=== PATIENT | male | born 1950 | race African-American/Black ===

== ENCOUNTER → 2016-06-23 | Outpatient (CLI) | payer MEDICARE, MEDICAID ==
[~2016-06-23] MED LIST: AMLODIPINE BESY10 MG ORAL; COGENTIN1 MG/ML PO; DONEPEZIL HCL5 M2 ORAL; KEPPRA100 MG/1 M PO; SEROQUEL100 MG ORAL
--- NOTE | 2016-06-23 16:03 | Diagnostic Imaging Report ---
Indications: Lung mass Technique: Continuous helical CT imaging of the thorax and upper abdomen was performed with automatic exposure control following intravenous administration of nonionic iodine contrast, on a Siemens sensation [address] scanner. Axial, coronal, and sagittal images were reconstructed at 5 mm slice thickness. CTDI volume(s): 8, 105, 16 mGy Total DLP: 700 mGy-cm Findings: Comparison: 01/06/2016 2 cm pleural-based masslike opacity containing multiple nodular calcifications and adjacent parenchymal linear density persists in the anterolateral periphery of the lateral segment right middle lobe, unchanged. Adjacent small nodular parenchymal densities persist, unchanged. Small irregular pleural-based linear densities persist in the dependent portions of both lung bases, unchanged. No new pulmonary parenchymal abnormality demonstrated. No pleural disease is evident. Nodular calcification in right hilum unchanged. Clustered calcified nodules in the subcarinal region of mediastinum unchanged. No new mediastinal or hilar enlarged lymph nodes. Heart remains normal in size. No pericardial abnormality. Central mediastinal vasculature remains unremarkable in appearance. Chest wall soft tissues remain nonfocal. Subcentimeter circumscribed low-attenuation focus upper pole cortex left kidney unchanged. Gallbladder contracted, limiting evaluation. 2 cm left adrenal mass unchanged. Bridging osteophytes again noted in the thoracic spine. Impression: Focal right lung, hilar, mediastinal findings are compatible with chronic granulomatous disease, stable Stable tiny low-attenuation focus in left renal cortex-cyst versus angiomyolipoma Stable 2 cm left adrenal mass probably but not definitely adenoma. MRI correlation suggested. Degenerative spondylosis Limited evaluation of gallbladder due to contraction
== END | disposition home or self-care (01) ==
LOC: CAT 13:03
DX: R91.8 Other nonspecific abnormal finding of lung field (principal); M47.9 Spondylosis, unspecified
CPT/HCPCS: 71260; Q9967

== ENCOUNTER 2018-10-07 02:22 | Inpatient (IN) | payer MEDICAID, MEDICARE ==
[~2018-10-07] VITALS: Ht 170.2 cm; Wt 77.1 kg
--- NOTE | 2018-10-07 02:22 | NUR ---
ED Nurse Note: Patient andrade JONES from [facility] c/o unwitnessed fall, EMS states that the patient was found on the floor. ABRASION ABOVE LEFT EYEBROW NOTED. NAD. VSS.
--- NOTE | 2018-10-07 02:30 | NUR ---
ED Nurse Note: IV ACCESS ESTABLISHED. BLOOD AND URINE COLLECTED; SENT DOWN TO LAB.
--- NOTE | 2018-10-07 02:45 | NUR ---
ED Nurse Note: SKIN ASSESSED. PT PRESENTS WITH ABRASION ABOVE LEFT EYEBROW; OTHERWISE SKIN INTACT.
--- NOTE | 2018-10-07 02:50 | NUR ---
ED Nurse Note: MRSA VRE CRE SWABS COLLECTED; SENT DOWN TO LAB.
--- NOTE | 2018-10-07 03:00 | NUR ---
ED Nurse Note: PT DOWN TO IMAGING.
[2018-10-07 03:03] VITALS: BP 112/70
[2018-10-07 03:05] LABS: APPEARANCE,URINE CLEAR; BILIRUBIN, URINE NEGATIVE (NEGATIVE); GLUCOSE, URINE (UA) NEGATIVE (NEGATIVE); KETONES,URINE NEGATIVE (NEGATIVE); LEUKOCYTE ESTERASE ,URINE NEGATIVE (NEGATIVE); NITRITE,URINE NEGATIVE (NEGATIVE); PH,URINE 6.5 (4.5-8.0); PROTEIN,URINE NEGATIVE (NEGATIVE); UROBILINOGEN,URINE NORMAL MG/DL (0.0-1.0)
[2018-10-07 03:06] LABS: COLOR,URINE YELLOW
[2018-10-07 03:07] LABS: BASOPHILS % (AUTO) 1.7 % (0.0-2.0); EOSINOPHILS % (AUTO) 2.8 % (0.0-3.0); HEMATOCRIT 47.9 % (42.0-52.0); HEMOGLOBIN 15.8 G/DL (14.2-18.0); MEAN CORPUSCULAR VOLUME 97 FL (80-99); MONOCYTES % (AUTO) 8.9 % (1.0-10.0); NEUTROPHILS % (AUTO) 58.6 % (45.0-75.0); PLATELET COUNT 269 K/UL (150-450); RED BLOOD COUNT 4.95 M/UL (4.70-6.10); RED CELL DISTRIBUTION WIDTH 13.4 % (11.6-14.8); WHITE BLOOD COUNT 9.4 K/UL (4.8-10.8)
[2018-10-07 03:15] LABS: ANION GAP 6 mmol/L (5-15); BLOOD UREA NITROGEN 15 mg/dL (7-18); CALCIUM 10.2 MG/DL (8.5-10.1); CARBON DIOXIDE 32 MMOL/L (21-32); CHLORIDE 106 MMOL/L (98-107); POTASSIUM 4.2 MMOL/L (3.5-5.1); SODIUM 144 MMOL/L (136-145)
--- NOTE | 2018-10-07 03:16 | NUR ---
ED Nurse Note: CALLED TO GIVE REPORT. RECEIVING RN UNABLE TO RECEIVE REPORT. WILL TRY AT A LATER TIME.
--- NOTE | 2018-10-07 03:17 | NUR ---
ED Nurse Note: PATIENT BACK FROM CT.
--- NOTE | 2018-10-07 03:45 | NUR ---
NURSE NOTES: Received report from KEELEY Caldwell via phone. Called and left a message with Dr. Soares regarding admission orders. Awaiting call back. Also awaiting pt.
--- NOTE | 2018-10-07 03:45 | NUR ---
TRANSFER TO FLOOR: Patient transferred to MED SURG 301-2 as ordered, per MD LOUIS. Report given to KEELEY GOULD. PATIENT IN STABLE CONDITION. ENDORSED SKIN ABRASION ON LEFT FOREHEAD. BELONGIGNS LIST COMPLETED WITH RECEIVING RN.
--- NOTE | 2018-10-07 03:46 | Emergency Room Report ---
History of Present Illness General Chief Complaint: Multiple Trauma/Fall Source: Patient, Medical Record, EMS Present Illness HPI This is a 68-year-old male with multiple medical problem including seizure and mentioned. He presents with fall with head injury. Onset tonight. No other injury. Complaining of pain to the head. History is limited because of his condition. No nausea no vomiting no fever or chills. Denies any other complaint. Unwitnessed fall. Allergies: Coded Allergies: PNEUMOCOCCAL VACCINE (Unverified Allergy, Unknown, 10/07/18) Patient History Past Medical History: see triage record, old chart reviewed, HTN, dementia Past Surgical History: other Pertinent Family History: none Social History: Denies: smoking Immunizations: other Reviewed Nursing Documentation: PMH: Agreed; PSxH: Agreed Nursing Documentation-PMH Past Medical History: No History, Except For Hx Hypertension: Yes - Essential Hypertension Hx Gastrointestinal Problems: Yes - Diverticulosis Hx Neurological Problems: Yes - Altered Mental Status. Hx Dementia: Yes - Unspecified, without behavioral disturbance Hx Seizures: Yes Hx Epilepsy: Yes - Unspecified, not intractable, without status epilepticus Hx Syncope: Yes Review of Systems Eye: Denies: eye pain, blurred vision ENT: Denies: ear pain, nose congestion, throat swelling Respiratory: Denies: cough, shortness of breath Cardiovascular: Denies: chest pain, palpitations Gastrointestinal: Denies: abdominal pain, diarrhea, nausea, vomiting Musculoskeletal: Denies: back pain, joint pain Skin: Denies: rash Neurological: Denies: headache, numbness Endocrine: Denies: increased thirst, increased urine Hematologic/Lymphatic: Denies: easy bruising All Other Systems: negative except mentioned in HPI Physical Exam Vital Signs Date Time Temp Pulse Resp B/P (MAP) Pulse Ox O2 Delivery O2 Flow Rate FiO2 10/07/18 02:17 98.4 70 16 93 Room Air 10/07/18 03:03 112/70 vitals [place] Sp02 EP Interpretation: reviewed, normal General Appearance: well appearing, no apparent distress, alert Head: normocephalic, other - Abrasion forehead Eyes: bilateral eye PERRL, bilateral eye EOMI ENT: hearing grossly normal, normal pharynx Neck: full range of motion, supple, no meningismus Respiratory: chest non-tender, lungs clear, normal breath sounds Cardiovascular #1: regular rate, rhythm, no murmur Gastrointestinal: normal bowel sounds, non tender, no mass, no organomegaly, no bruit, non-distended Musculoskeletal: back normal, gait/station normal, normal range of motion Psychiatric: mood/affect normal Skin: warm/dry Medical Decision Making Diagnostic Impression: Primary Impression: Head injury, acute Qualified Codes: S09.90XA - Unspecified injury of head, initial encounter Additional Impression: Altered mental status Qualified Codes: R41.82 - Altered mental status, unspecified ER Course Patient with a fall and head injury. No evidence of any bleed. Unknown confusion state. Will place in observation. I discussed case with Dr. Soares who will place pt in observation. CT/MRI/US Diagnostic Results CT/MRI/US Diagnostic Results : Imaging Test Ordered: CT head Impression negative per radiologist Last Vital Signs Date Time Temp Pulse Resp B/P (MAP) Pulse Ox O2 Delivery O2 Flow Rate FiO2 10/07/18 03:03 70 16 Room Air 10/07/18 03:03 98.4 112/70 93 Status: improved Disposition: PLACE IN OBSERVATION Condition: Serious Referrals: Konrad Soares MD (PCP) Devonte Sinha MD October 07, 2018 03:46
[2018-10-07 03:56] VITALS: BP 116/81
--- NOTE | 2018-10-07 04:34 | NUR ---
NURSE NOTES: Received the followinf orders from Dr. Soares: - resume snf meds and same diet - same code as snf - dvt: SCD - no labs Will input orders and will continue to monitor.
[2018-10-07] MEDS ORDERED: MOM30 ML ORAL (05:42)
[2018-10-07] MEDS ORDERED: REMERON15 M1 ORAL (05:43)
--- NOTE | 2018-10-07 07:29 | NUR ---
NURSE NOTES: Received report from KEELEY Stoddard. Rounding done with outgoing nurse. Patient a/o x1 lying on the bed. No respiratory discomfort noted. Bed in lowest position, call light within reach. Will continue to monitor.
[2018-10-07 08:00] VITALS: BP 123/71
[2018-10-07] MEDS: Benztropine 1mg tab ORAL SCH ×2 (08:41→17:56)
[2018-10-07] MEDS: Milk of Magnesia 30ml Ud ORAL SCH (08:41)
[2018-10-07] MEDS ORDERED: levETIRAcetam 500mg vial IV SCH (09:00)
--- NOTE | 2018-10-07 10:49 | Diagnostic Imaging Report ---
Indication: Head trauma and headache Technique: Contiguous 5 mm thick transaxial imaging of the head obtained in a Siemens Sensation [address] scanner. Soft tissue and bone windows generated. Automatic Exposure Control was utilized. Total Dose length Product (DLP): 1351.[address] Dose Index Volume (CTDIvol): 70.38 mGy Comparison: none Findings: There is moderate prominence of the ventricles, basal cisterns, and cerebral sulci consistent with atrophy. Moderate, nonspecific, white matter hypoattenuation is noted throughout the brain consistent with chronic small vessel disease. There is no midline shift, edema, acute hemorrhage, mass effect, or abnormal extra-axial fluid collections. Bones and extra osseous soft tissues are unremarkable. There is a scalp hematoma over the frontal region. Impression: No acute intracranial bleed, mass effect or edema. Moderate atrophy of the brain. Evidence of chronic small vessel disease involving white matter tracts. [facility] has communicated the preliminary results to the Emergency Department. Their findings are largely concordant with this report. The CT scanner at [facility] is accredited by the [employer] and the scans are performed using dose optimization techniques as appropriate to a performed exam including Automatic Exposure control.
[2018-10-07 12:00] VITALS: BP 114/71
--- NOTE | 2018-10-07 14:38 | NUR ---
CASE MANAGEMENT:REVIEW 68 YR OLD MALE SANDY FROM [facility] CC: FALL SI: HEAD INJURY 98.5 70 16 112/70 93% ON RA CA-10.2 IS: CT HEAD : TO MED/SURG 3 [facility] IS: ARICEPT PO QHS REMERON PO QHS NORVASC PO QD SEROQUEL PO BID COGENTIN PO BID KEPPRA PO BID PLAN: NEURO CHECKS Q4HRS INTERQUAL CRITERIA MET
[2018-10-07 16:00] VITALS: BP 119/72
--- NOTE | 2018-10-07 19:30 | NUR ---
NURSE NOTES: Pt lying in bed w/bed in lowest position and call light within reach. Pt confused, does not answer questions, VSS, and in no apparent distress at this time. IV site intact/asymptomatic & H/L'd; condom cath intact; and skin abrasion noted above left eyebrow. Will continue to monitor.
--- NOTE | 2018-10-07 19:40 | NUR ---
HAND-OFF: Report given to KEELEY Hernandez. Patient is stable.
[2018-10-07 20:00] VITALS: BP 124/71
[2018-10-07] MEDS: Donepezil 5mg Tab ORAL SCH (20:20)
--- NOTE | 2018-10-07 21:46 | Consultation ---
History of Present Illness General Date patient seen: October 07, 2018 Chief Complaint: AMS Present Illness HPI Pritesh Noguera is a 68-year-old male with a history of CVA and seizure disorder presenting with head injury secondary to unwitnessed ground level fall this evening. He is currently non verbal and unable to provide any history of any kind. He has no other apparent deficits as he is withdrawing / localizing to stimuli in all four extremities without apparent weakness at this time. Allergies: Coded Allergies: PNEUMOCOCCAL VACCINE (Unverified Allergy, Unknown, 10/07/18) Medication History Scheduled Amlodipine Besylate* (Amlodipine Besylate*), 10 MG ORAL DAILY, (Reported) Benztropine Mesylate (Cogentin), 0.5 MG PO BID, (Reported) Donepezil Hcl* (Donepezil Hcl*), 5 MG ORAL HS, (Reported) Levetiracetam (Keppra), 1,500 MG PO BID, (Reported) Magnesium Hydroxide (Milk of Magnesia), 30 ML ORAL DAILY, (Reported) Mirtazapine (Remeron), 7.5 MG ORAL BEDTIME, (Reported) Quetiapine Fumarate* (Seroquel*), 100 MG ORAL TWICE A DAY, (Reported) Patient History Limited by: medical condition History Provided By: Medical Record Healthcare decision maker Resuscitation status Full Code Advanced Directive on File Review of Systems ENT: Reports: other All Other Systems: negative except mentioned in HPI ROS Narrative Unable to report Physical Exam General Appearance: WD/WN, lethargic Lines, tubes and drains: peripheral HEENT: normocephalic, atraumatic, anicteric, mucous membranes moist, PERRL, EOMI, pharynx normal, no JVD Neck: non-tender, normal alignment, supple, normal inspection Respiratory/Chest: normal breath sounds Cardiovascular/Chest: normal peripheral pulses, no JVD Abdomen: non tender, soft Extremities: normal inspection, no calf tenderness, normal capillary refill, non-pitting, no edema, no cyanosis Skin Exam: normal pigmentation, warm/dry Neurologic: abnormal CN, unresponsiveness, aphasia, other - Moving all extremities spontaneously without apparent weakness but non to command W/D from noxious stim. Last 24 Hour Vital Signs Date Time Temp Pulse Resp B/P (MAP) Pulse Ox O2 Delivery O2 Flow Rate FiO2 10/07/18 21:00 Room Air 10/07/18 20:00 97.7 98 17 124/71 (88) 97 10/07/18 16:00 97.7 62 17 119/72 (88) 97 10/07/18 12:00 98.2 69 20 114/71 (85) 99 10/07/18 09:00 Room Air 10/07/18 08:41 68 123/71 10/07/18 08:00 98.0 68 19 123/71 (88) 97 10/07/18 05:07 Room Air 10/07/18 03:56 98.1 75 116/81 (93) 97 10/07/18 03:45 98.4 70 16 112/70 93 Room Air 10/07/18 03:03 70 16 Room Air 10/07/18 03:03 98.4 70 16 112/70 93 Room Air 10/07/18 02:17 98.4 70 16 93 Room Air Intake and Output 10/06/18 10/07/18 19:00 07:00 # Voids 2 # Bowel Movements 1 Laboratory Tests Test 10/07/18 02:30 White Blood Count 9.4 K/UL (4.8-10.8) Red Blood Count 4.95 M/UL (4.70-6.10) Hemoglobin 15.8 G/DL (14.2-18.0) Hematocrit 47.9 % (42.0-52.0) Mean Corpuscular Volume 97 FL (80-99) Mean Corpuscular Hemoglobin 31.8 PG (27.0-31.0) H Mean Corpuscular Hemoglobin Concent 32.9 G/DL (32.0-36.0) Red Cell Distribution Width 13.4 % (11.6-14.8) Platelet Count 269 K/UL (150-450) Mean Platelet Volume 6.3 FL (6.5-10.1) L Neutrophils (%) (Auto) 58.6 % (45.0-75.0) Lymphocytes (%) (Auto) 28.0 % (20.0-45.0) Monocytes (%) (Auto) 8.9 % (1.0-10.0) Eosinophils (%) (Auto) 2.8 % (0.0-3.0) Basophils (%) (Auto) 1.7 % (0.0-2.0) Urine Color Yellow Urine Appearance Clear Urine pH 6.5 (4.5-8.0) Urine Specific [place] 1.015 (1.005-1.035) Urine Protein Negative (NEGATIVE) Urine Glucose (UA) Negative (NEGATIVE) Urine Ketones Negative (NEGATIVE) Urine Blood Negative (NEGATIVE) Urine Nitrite Negative (NEGATIVE) Urine Bilirubin Negative (NEGATIVE) Urine Urobilinogen Normal MG/DL (0.0-1.0) Urine Leukocyte Esterase Negative (NEGATIVE) Urine RBC 0-2 /HPF (0 - 0) H Urine WBC 0-2 /HPF (0 - 0) Urine Squamous Epithelial Cells Occasional /LPF Urine Bacteria Occasional /HPF (NONE) Sodium Level 144 MMOL/L (136-145) Potassium Level 4.2 MMOL/L (3.5-5.1) Chloride Level 106 MMOL/L (98-107) Carbon Dioxide Level 32 MMOL/L (21-32) Anion Gap 6 mmol/L (5-15) Blood Urea Nitrogen 15 mg/dL (7-18) Creatinine 1.0 MG/DL (0.55-1.30) Estimat Glomerular Filtration Rate > 60 mL/min (>60) Glucose Level 103 MG/DL (74-106) Calcium Level 10.2 MG/DL (8.5-10.1) H Height (Feet): 5 Height (Inches): 7.00 Weight (Pounds): 170 Medications Current Medications Medications (Trade) Dose Ordered Sig/Nidhi Route PRN Reason Start Time Stop Time Status Last Admin Dose Admin Amlodipine Besylate (Norvasc) 10 mg DAILY ORAL 10/07/18 09:00 11/06/18 08:59 10/07/18 08:41 Benztropine Mesylate (Cogentin) 0.5 mg BID ORAL 10/07/18 09:00 11/06/18 08:59 10/07/18 17:56 Donepezil HCl (Aricept) 5 mg BEDTIME ORAL 10/07/18 21:00 11/06/18 20:59 10/07/18 20:20 Levetiracetam (Keppra) 1,500 mg BID ORAL 10/07/18 09:00 11/06/18 08:59 10/07/18 17:56 Magnesium Hydroxide (Mom) 30 ml DAILY ORAL 10/07/18 09:00 11/06/18 08:59 10/07/18 08:41 Mirtazapine (Remeron) 7.5 mg BEDTIME ORAL 10/07/18 21:00 11/06/18 20:59 10/07/18 20:20 Quetiapine Fumarate (SEROquel) 100 mg TWICE A DAY ORAL 10/07/18 09:00 11/06/18 08:59 10/07/18 17:56 Assessment/Plan Problem List: (1) Head injury, acute ICD Codes: S09.90XA - Unspecified injury of head, initial encounter SNOMED: 97316989, [id number] Qualifiers: Qualified Codes: S09.90XA - Unspecified injury of head, initial encounter (2) Altered mental status ICD Codes: R41.82 - Altered mental status, unspecified SNOMED: 135860422, 7112714 Qualifiers: Qualified Codes: R41.82 - Altered mental status, unspecified (3) Schizophrenia ICD Codes: F20.9 - Schizophrenia, unspecified SNOMED: 63394548 (4) Syncope ICD Codes: R55 - Syncope and collapse SNOMED: 134093195 Assessment/Plan: Q4 Neuro Obs Na 135-145 MRI Brain w/o contrast EEG after MRI Maintain Normoglycemia/ Normothermia Abx if needed Psych input regarding proper regimen for Schizophrenia diagnosis Continue Home meds Correct / Replete Lytes Track Trend LFTs/ CR/ BUN/ H&H etc Shelli Bains N.P. October 07, 2018 21:45
[2018-10-08] VITALS: BP 131/81
[2018-10-08 04:00] VITALS: BP 116/76
--- NOTE | 2018-10-08 07:29 | NUR ---
HAND-OFF: Report given to KEELEY Strauss.
--- NOTE | 2018-10-08 07:48 | NUR ---
NURSE NOTES: During shift change patient awake none verbal, oriented to person, high ruelas position, bed on low position locked call light with in reach alarm on will continue to monitor.
[2018-10-08 08:21] VITALS: BP 114/70
[2018-10-08] MEDS: Benztropine 1mg tab ORAL SCH ×2 (08:28→18:44)
[2018-10-08] MEDS: Milk of Magnesia 30ml Ud ORAL SCH (08:29)
--- NOTE | 2018-10-08 08:52 | Consultation ---
History of Present Illness General Date patient seen: October 08, 2018 Present Illness Allergies: Coded Allergies: PNEUMOCOCCAL VACCINE (Unverified Allergy, Unknown, 10/07/18) Medication History Scheduled Amlodipine Besylate* (Amlodipine Besylate*), 10 MG ORAL DAILY, (Reported) Benztropine Mesylate (Cogentin), 0.5 MG PO BID, (Reported) Donepezil Hcl* (Donepezil Hcl*), 5 MG ORAL HS, (Reported) Levetiracetam (Keppra), 1,500 MG PO BID, (Reported) Magnesium Hydroxide (Milk of Magnesia), 30 ML ORAL DAILY, (Reported) Mirtazapine (Remeron), 7.5 MG ORAL BEDTIME, (Reported) Quetiapine Fumarate* (Seroquel*), 100 MG ORAL TWICE A DAY, (Reported) Patient History Healthcare decision maker Resuscitation status Full Code Advanced Directive on File Physical Exam Last 24 Hour Vital Signs Date Time Temp Pulse Resp B/P (MAP) Pulse Ox O2 Delivery O2 Flow Rate FiO2 10/08/18 08:28 77 114/70 10/08/18 08:21 97.1 77 19 114/70 (85) 98 10/08/18 04:00 96.9 73 18 116/76 (89) 95 10/08/18 00:00 97.8 70 18 131/81 (98) 95 10/07/18 21:00 Room Air 10/07/18 20:00 97.7 98 17 124/71 (88) 97 10/07/18 16:00 97.7 62 17 119/72 (88) 97 10/07/18 12:00 98.2 69 20 114/71 (85) 99 10/07/18 09:00 Room Air Intake and Output 10/07/18 10/08/18 18:59 06:59 Intake Total 630 ml Output Total 400 ml 100 ml Balance 230 ml -100 ml Intake Oral 630 ml Output Urine Total 400 ml 100 ml Height (Feet): 5 Height (Inches): 7.00 Weight (Pounds): 170 Medications Current Medications Medications (Trade) Dose Ordered Sig/Nidhi Route PRN Reason Start Time Stop Time Status Last Admin Dose Admin Amlodipine Besylate (Norvasc) 10 mg DAILY ORAL 10/07/18 09:00 11/06/18 08:59 10/08/18 08:28 Benztropine Mesylate (Cogentin) 0.5 mg BID ORAL 10/07/18 09:00 11/06/18 08:59 10/08/18 08:28 Donepezil HCl (Aricept) 5 mg BEDTIME ORAL 10/07/18 21:00 11/06/18 20:59 10/07/18 20:20 Levetiracetam (Keppra) 1,500 mg BID ORAL 10/07/18 09:00 11/06/18 08:59 10/08/18 08:28 Magnesium Hydroxide (Mom) 30 ml DAILY ORAL 10/07/18 09:00 11/06/18 08:59 10/08/18 08:29 Mirtazapine (Remeron) 7.5 mg BEDTIME ORAL 10/07/18 21:00 11/06/18 20:59 10/07/18 20:20 Quetiapine Fumarate (SEROquel) 100 mg TWICE A DAY ORAL 10/07/18 09:00 11/06/18 08:59 10/08/18 08:29 Assessment/Plan Assessment/Plan: (1) Right hand pain R/o fx (2) Dementia seen dictated Parish Cheney October 08, 2018 08:51
--- NOTE | 2018-10-08 10:07 | NUR ---
RADIOLOGY DEPT., RIGHT HAND X-RAYS COMPLETED.-P.DYE
--- NOTE | 2018-10-08 11:41 | Diagnostic Imaging Report ---
Indication: Right hand pain Findings: 3 views of the right hand were obtained. There is a flexion deformity of the fifth DIP joint. Acuity of this injury is unknown. No acute fractures appreciated. The bones appear osteopenic. There is calcification of the radiocarpal joint and triangular fibrocartilage complex. IMPRESSION: No acute fracture identified. Fifth DIP flexion deformity acuity indeterminate. 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
[2018-10-08 12:00] VITALS: BP 113/64
--- NOTE | 2018-10-08 13:33 | Consultation ---
History of Present Illness General Chief Complaint: Multiple Trauma/Fall Present Illness Allergies: Coded Allergies: PNEUMOCOCCAL VACCINE (Unverified Allergy, Unknown, 10/07/18) Medication History Scheduled Amlodipine Besylate* (Amlodipine Besylate*), 10 MG ORAL DAILY, (Reported) Benztropine Mesylate (Cogentin), 0.5 MG PO BID, (Reported) Donepezil Hcl* (Donepezil Hcl*), 5 MG ORAL HS, (Reported) Levetiracetam (Keppra), 1,500 MG PO BID, (Reported) Magnesium Hydroxide (Milk of Magnesia), 30 ML ORAL DAILY, (Reported) Mirtazapine (Remeron), 7.5 MG ORAL BEDTIME, (Reported) Quetiapine Fumarate* (Seroquel*), 100 MG ORAL TWICE A DAY, (Reported) Patient History Healthcare decision maker Resuscitation status Full Code Advanced Directive on File Physical Exam Last 24 Hour Vital Signs Date Time Temp Pulse Resp B/P (MAP) Pulse Ox O2 Delivery O2 Flow Rate FiO2 10/08/18 09:00 Room Air 10/08/18 08:28 77 114/70 10/08/18 08:21 97.1 77 19 114/70 (85) 98 10/08/18 04:00 96.9 73 18 116/76 (89) 95 10/08/18 00:00 97.8 70 18 131/81 (98) 95 10/07/18 21:00 Room Air 10/07/18 20:00 97.7 98 17 124/71 (88) 97 10/07/18 16:00 97.7 62 17 119/72 (88) 97 Intake and Output 10/07/18 10/08/18 19:00 07:00 Intake Total 630 ml Output Total 400 ml 100 ml Balance 230 ml -100 ml Intake Oral 630 ml Output Urine Total 400 ml 100 ml Height (Feet): 5 Height (Inches): 7.00 Weight (Pounds): 170 Medications Current Medications Medications (Trade) Dose Ordered Sig/Nidhi Route PRN Reason Start Time Stop Time Status Last Admin Dose Admin Acetaminophen (Tylenol) 650 mg Q6H PRN ORAL Mild Pain/Temp > 100.5 10/08/18 09:00 11/07/18 08:59 Amlodipine Besylate (Norvasc) 10 mg DAILY ORAL 10/07/18 09:00 11/06/18 08:59 10/08/18 08:28 Benztropine Mesylate (Cogentin) 0.5 mg BID ORAL 10/07/18 09:00 11/06/18 08:59 10/08/18 08:28 Donepezil HCl (Aricept) 5 mg BEDTIME ORAL 10/07/18 21:00 11/06/18 20:59 10/07/18 20:20 Levetiracetam (Keppra) 1,500 mg BID ORAL 10/07/18 09:00 11/06/18 08:59 10/08/18 08:28 Magnesium Hydroxide (Mom) 30 ml DAILY ORAL 10/07/18 09:00 11/06/18 08:59 10/08/18 08:29 Mirtazapine (Remeron) 7.5 mg BEDTIME ORAL 10/07/18 21:00 11/06/18 20:59 10/07/18 20:20 Quetiapine Fumarate (SEROquel) 100 mg TWICE A DAY ORAL 10/07/18 09:00 11/06/18 08:59 10/08/18 08:29 Assessment/Plan Assessment/Plan: Hematology Consultation REQ MD: Konrad Richter RFC: Hypercalcemia eval Source: Patient, Medical Record, EMS DOS: 10/08/18 HPI This is a 68-year-old male with multiple medical problem including seizure and mentioned. He presents with fall with head injury. Onset tonight. No other injury. Complaining of pain to the head. History is limited because of his condition. No nausea no vomiting no fever or chills. Denies any other complaint. Unwitnessed fall. Noted to have a high Ca count and heme was consulted. Allergies: PNEUMOCOCCAL VACCINE (Unverified Allergy, Unknown, 10/07/18) Past Medical History: see triage record, old chart reviewed, HTN, dementia Past Surgical History: other Pertinent Family History: none Social History: Denies: smoking Immunizations: other Reviewed Nursing Documentation: PMH: Agreed; PSxH: Agreed Past Medical History: No History, Except For Hx Hypertension: Yes - Essential Hypertension Hx Gastrointestinal Problems: Yes - Diverticulosis Hx Neurological Problems: Yes - Altered Mental Status. Hx Dementia: Yes - Unspecified, without behavioral disturbance Hx Seizures: Yes Hx Epilepsy: Yes - Unspecified, not intractable, without status epilepticus Hx Syncope: Yes ROS Eye: Denies: eye pain, blurred vision ENT: Denies: ear pain, nose congestion, throat swelling Respiratory: Denies: cough, shortness of breath Cardiovascular: Denies: chest pain, palpitations Gastrointestinal: Denies: abdominal pain, diarrhea, nausea, vomiting Musculoskeletal: Denies: back pain, joint pain Skin: Denies: rash Neurological: Denies: headache, numbness Endocrine: Denies: increased thirst, increased urine Hematologic/Lymphatic: Denies: easy bruising All Other Systems: negative except mentioned in HPI PE Vital Signs Date Time Temp Pulse Resp B/P (MAP) Pulse Ox O2 Delivery O2 Flow Rate FiO2 10/07/18 02:17 98.4 70 16 93 Room Air 10/07/18 03:03 112/70 vitals normal Gen: well appearing, no apparent distress Head: normocephalic, other - Abrasion forehead Eyes: bilateral eye PERRL ENT: hearing grossly normal, normal pharynx Neck: full range of motion, supple, no meningismus Respiratory: chest non-tender, lungs clear, normal breath sounds CV: regular rate, rhythm GI: normal bowel sounds, non tender, no mass, no organomegaly Musculoskeletal: back normal, gait/station normal, normal range of motion Psychiatric: mood/affect normal Skin: warm/dry Active Scripts Medications Dose Route/Sig Max Daily Dose Days Date Category Remeron (Mirtazapine) 15 Mg Tab.rapdis 7.5 Mg ORAL BEDTIME 10/07/18 Reported Milk of Magnesia (Magnesium Hydroxide) 400 Mg/5 Ml Oral.susp 30 Ml ORAL DAILY 10/07/18 Reported Cogentin (Benztropine Mesylate) 2 Mg/2 Ml Ampul 0.5 Mg PO BID 01/06/16 Reported Seroquel* (Quetiapine Fumarate) 100 Mg Tablet 100 Mg ORAL TWICE A DAY 01/06/16 Reported Keppra (Levetiracetam) 500 Mg/5 Ml Vial 1,500 Mg PO BID 01/06/16 Reported Donepezil Hcl* (Donepezil HCl) 5 Mg Tab.rapdis 5 Mg ORAL HS 01/06/16 Reported Amlodipine Besylate* (Amlodipine Besylate) 10 Mg Tablet 10 Mg ORAL DAILY 8/4/16 Reported Assessment and Recs: # Hypercalcemia r/o malignancy, r/o myeloma, elevated on admission, may be 2/2 dehydration --> ordered for pth and spep --> on iv fluids as per pcp --> renal eval prn # Head injury, acute --> imaging as per neuro --> ct brain reviewed and shows small vessel disease # Altered mental status --> as per renal # 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 Greatly appreciate consultation! Ignacio Ponce MD October 08, 2018 13:33
[2018-10-08] MEDS ORDERED: LORazepam Inj 2mg/ml 1ml IV SCH (13:59)
[2018-10-08 15:30] VITALS: BP 127/72
--- NOTE | 2018-10-08 15:43 | Diagnostic Imaging Report ---
Indication: Head trauma. Headache Technique: The head was imaged in a 1.5 Alejandra magnet. Sequences obtained include sagittal and axial T1 FLAIR, axial T2 fast spin echo with fat saturation, axial T2 FLAIR, diffusion and ADC map. Comparison: None Findings: There is moderate to severe prominence of the sulci, ventricles, and basal cisterns consistent with atrophy. Moderate, nonspecific T2 hyperintensity noted within white matter. This may be due to chronic small vessel disease. There is no restricted diffusion. Avalos-white differentiation is normal. There is no mass effect, midline shift, edema, or hemorrhage. There are no abnormal extra-axial or intra-axial fluid collections. The corpus callosum and sella are unremarkable. The brainstem and cerebellum are unremarkable. Bone marrow signal within the visualized osseous structures appears age appropriate and unremarkable otherwise. Impression: No acute intracranial findings. Moderate to severe atrophy and evidence of chronic small vessel disease involving white matter tracts.
--- NOTE | 2018-10-08 19:30 | NUR ---
NURSE NOTES: Pt lying in bed w/bed in lowest position and call light within reach. Pt confused, VSS, and in no apparent distress at this time. IV site intact/asymptomatic & H/L'd; condom catheter in place; abrasion above left eyebrow scabbed over & skin intact. Will continue to monitor.
[2018-10-08 20:00] VITALS: BP 131/88
--- NOTE | 2018-10-08 20:01 | Neurology Progress Note ---
Interim History Interim History ROS Limited/Unobtainable: Yes Complaints: AMS Events: MRI Negative for Acute Infarct Interim History This visit was conducted on October 08, [address] Kirk Floyd. Objective Physical Exam Last Vital Signs Date Time Temp Pulse Resp B/P (MAP) Pulse Ox O2 Delivery O2 Flow Rate FiO2 10/08/18 15:30 98.1 80 20 127/72 (90) 93 10/08/18 09:00 Room Air Laboratory Tests Test 10/08/18 13:45 Calcium (Send out) Pending Total Protein (PEP) Pending Albumin (PEP) Pending Globulin (PEP) Pending Albumin/Globulin Ratio Pending Kpisd-3-Yqtzyodun Pending Lsizs-5-Qcygufrwk Pending Beta Globulins Pending Beta Gamma Globulin Pending PEP Abnormal Protein Bands Pending Protein Electrophoresis Interpret Pending Parathyroid Hormone (Intact) Pending General: well developed, well nourished, no acute distress Head: normocophalic, atraumatic Neck: no rigidity EENT: benign Neurologic Exam Mental Status: other - Eyes only opening intermittently with some tracking and conjugated movements- non verbal and not following commands. Cranial Nerves III, IV, : PERRLA, EOMI Cranial Nerve VII: normal facial expressions Cranial Nerve VIII: no nystagmus Motor System: other - OLSON x 4 Antigravity but not to command- W/D to noxious stimuli. Impression/Recommendations Problems: (1) Head injury Assessment & Plan: Unchanged mental status- MRI without acute findings (2) Syncope (3) Schizophrenia (4) Altered mental status Assessment & Plan: EEG ordered - awaiting completion Continue Q4 hour Neuro obs Psych eval and input appreciated (5) UTI (urinary tract infection) (6) COPD (chronic obstructive pulmonary disease) (7) Hypercalcemia (8) Lung mass Assessment & Plan: Hypercalcemia and Mass suggest possible Malignancy Status: not improved, unchanged Shelli Bains N.P. October 08, 2018 20:01
--- NOTE | 2018-10-08 20:18 | NUR ---
HAND-OFF: Report given to KEELEY Hart patient stable condition.
[2018-10-08] MEDS: Donepezil 5mg Tab ORAL SCH (20:54)
[2018-10-09] VITALS: BP 137/74
--- NOTE | 2018-10-09 02:45 | Consultation ---
DATE OF CONSULTATION: 10/08/2018 PAIN MANAGEMENT CONSULTATION CONSULTING PHYSICIAN: Billy Monge M.D. REFERRING PHYSICIAN: Konrad Soares M.D. PHYSICIAN EXCHANGE CONSULTANT: Vivek Doherty CHIEF COMPLAINT: Right hand pain. HISTORY OF PRESENT ILLNESS: This is a 68-year-old male who is being seen on the Med/Surg floor of [facility] for initial pain management. The patient was admitted under the care of Dr. Soares [facility] with a laceration of the right forehead and is ADD, dementia patient, nonverbal. However, when assessing the patient, the patient has been having pain with movement of the right hand with swelling noted. We were consulted so that the patient would have adequate pain control while here in the hospital. PAST MEDICAL HISTORY: Dementia, seizure, epilepsy, hypertension, diverticulosis, benign prostate hypertrophy. MEDICATIONS: Amlodipine, Cogentin, donepezil, Keppra, milk of magnesia, Remeron, and Seroquel. SOCIAL HISTORY: Unknown. REVIEW OF SYSTEMS: Unable to obtain due to the patient's mental status. PHYSICAL EXAMINATION: GENERAL: Alert and awake. VITAL SIGNS: Blood pressure 114/70, heart rate 77, oxygen saturation 98%, respiratory rate 19, and temp is 98 HEENT: PERRLA. NECK: Range of motion is full in all directions. No tenderness to paracervical muscles. No adenopathy. LUNGS: Decreased breath sounds bilaterally. HEART: S1 and S2 regular. ABDOMEN: Soft and nontender. BACK: Range of motion is full on flexion and extension. EXTREMITIES: Upper and lower extremity range of motion is decreased due to the patient's clinical condition with swelling of the right hand and tenderness to palpation. ASSESSMENT AND PLAN: This is a 68-year-old male with right hand pain, rule out fracture, dementia. The patient will be started on Tylenol 650 mg tablet every 6 hours as needed for pain and an x-ray of the right hand will be ordered to rule out fracture. The patient was discussed with Dr. Monge and Dr. Monge concurred. We will follow the patient. Thank you very much for the courtesy of this consultation. Billy Monge M.D. HERB Doherty DR: AL JOB#: [id number] CC: [place]
--- NOTE | 2018-10-09 03:15 | History and Physical Report ---
DATE OF ADMISSION: 10/07/2018 HISTORY OF PRESENT ILLNESS: The patient was admitted for head injury, fell at the group home with hematoma and pain, rule out fracture, rule out syncope. The patient is a poor historian, cannot rely upon his history. The patient has a cut on his forehead as well as nonverbal, cannot get any history from the patient. We cannot rule out syncopal episode. PAST MEDICAL HISTORY: Advanced dementia, history of hypocalcemia, history of lung mass, history of COPD, history of malnutrition, psychosis, history of seizure disorder, and mood disorder. PAST SURGICAL HISTORY: Does have mid abdominal surgical scar. ALLERGIES: To pneumococcal vaccine. MEDICATIONS: Cogentin, Norvasc, benazepril, Keppra, mirtazapine, and Seroquel. FAMILY HISTORY: Unable to obtain. SOCIAL HISTORY: Unable to obtain. REVIEW OF SYSTEMS: Unable to obtain. PHYSICAL EXAMINATION: VITAL SIGNS: Temperature is 97.1, pulse is 77, and blood pressure 114/70. HEENT: PERRLA. NECK: Supple. No lymphadenopathy. CHEST: Clear to auscultation. CARDIOVASCULAR: Regular rate and rhythm. No murmurs or extra sounds. GASTROINTESTINAL: Soft, nontender, nondistended. No organomegaly. EXTREMITIES: No edema. Moves all 4 extremities. NEUROLOGIC: Sensory intact to light touch. Does not follow neurological exam. Reflexes equal on both sides. LABORATORY DATA: WBC of 9.4, hemoglobin 15.8, and platelets 269. Sodium 144 and potassium 4.2. ASSESSMENT AND PLAN: Status post fall, cannot rule out syncope with hematoma on the forehead and head injury. We will monitor the patient closely. I have asked , Dr. Henry, Dr. Monge to see the patient to rule out any fracture as well as to rule out any intracranial hemorrhage as well as for the management of the hypocalcemia. Dr. Henry will be helping us with the patient will need IV fluids. Konrad Soares M.D. DR: CALLY JOB#: [id number] CC:
[2018-10-09 04:00] VITALS: BP 138/99
--- NOTE | 2018-10-09 07:26 | NUR ---
HAND-OFF: Report given to KEELEY Strauss.
--- NOTE | 2018-10-09 07:50 | NUR ---
NURSE NOTES: During shift change patient alert awake with out no distress asleep but arosable for name, RN feed patient able to eat with out any difficulties swallowing, will continue to monitor.
[2018-10-09 08:45] VITALS: BP 126/79
[2018-10-09] MEDS: Milk of Magnesia 30ml Ud ORAL SCH (08:49)
[2018-10-09] MEDS: Benztropine 1mg tab ORAL SCH ×2 (08:50→17:35)
--- NOTE | 2018-10-09 08:50 | General Progress Note ---
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 Monge and he concurred. Subjective Date patient seen: October 09, 2018 Time patient seen: 07:15 - am ROS Limited/Unobtainable: Yes Allergies: Coded Allergies: PNEUMOCOCCAL VACCINE (Unverified Allergy, Unknown, 10/07/18) Subjective In bed no signs of pain or distress. D/w nurse at bedside. Xray reviewed Objective Last 24 Hour Vital Signs Date Time Temp Pulse Resp B/P (MAP) Pulse Ox O2 Delivery O2 Flow Rate FiO2 10/09/18 08:45 97.6 70 18 126/79 (95) 98 10/09/18 04:00 97.3 75 18 138/99 (112) 95 10/09/18 00:00 98.1 86 20 137/74 (95) 99 10/08/18 21:00 Room Air 10/08/18 20:00 98.4 96 20 131/88 (102) 94 10/08/18 15:30 98.1 80 20 127/72 (90) 93 10/08/18 12:00 98.1 82 17 113/64 (80) 95 10/08/18 09:00 Room Air Intake and Output 10/08/18 10/09/18 18:59 06:59 Intake Total 480 ml 350 ml Output Total 575 ml Balance 480 ml -225 ml Intake Oral 480 ml 350 ml Output Urine Total 575 ml Laboratory Tests 10/08/18 13:45: Calcium (Send out) [Pending], Total Protein (PEP) [Pending], Albumin (PEP) [ Pending], Globulin (PEP) [Pending], Albumin/Globulin Ratio [Pending], Alpha-1- Globulins [Pending], Jmkgs-5-Lujgpmuab [Pending], Beta Globulins [Pending], Beta Gamma Globulin [Pending], PEP Abnormal Protein Bands [Pending], Protein Electrophoresis Interpret [Pending], Parathyroid Hormone (Intact) [Pending] Height (Feet): 5 Height (Inches): 7.00 Weight (Pounds): 170 General Appearance: no apparent distress, alert EENT: PERRL/EOMI, normal ENT inspection Neck: non-tender, normal alignment Cardiovascular: normal rate, regular rhythm Respiratory/Chest: lungs clear, normal breath sounds Abdomen: non tender, soft Edema: mild edema Neurologic: alert Skin: normal pigmentation Objective Procedure: XRAY Hand Complete R Indication: Right hand pain Findings: 3 views of the right hand were obtained. There is a flexion deformity of the fifth DIP joint. Acuity of this injury is unknown. No acute fractures appreciated. The bones appear osteopenic. There is calcification of the radiocarpal joint and triangular fibrocartilage complex. IMPRESSION: No acute fracture identified. Fifth DIP flexion deformity acuity indeterminate. 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
[2018-10-09 12:00] VITALS: BP 123/74
--- NOTE | 2018-10-09 13:42 | General Progress Note ---
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 Greatly appreciate consultation! Subjective HEENT: Denies: no symptoms, eye pain, blurred vision, tearing, double vision, ear pain, ear discharge, nose pain, nose congestion, throat pain, throat swelling, mouth pain, mouth swelling, other Cardiovascular: Denies: no symptoms, chest pain, edema, irregular heart rate, lightheadedness, palpitations, syncope, other Respiratory: Denies: no symptoms, cough, orthopnea, shortness of breath, SOB with excertion, SOB at rest, sputum, stridor, wheezing, other Gastrointestinal/Abdominal: Denies: no symptoms, abdomen distended, abdominal pain, black stools, tarry stools, blood in stool, constipated, diarrhea, difficulty swallowing, nausea, poor appetite, poor fluid intake, rectal bleeding , vomiting, other Genitourinary: Denies: no symptoms, burning, discharge, frequency, flank pain, hematuria, incontinence, pain, urgency, other Endocrine: Denies: no symptoms, excessive sweating, flushing, intolerance to cold, intolerance to heat, increased hunger, increased thirst, increased urine, unexplained weight gain, unexplained weight loss, other Allergies: Coded Allergies: PNEUMOCOCCAL VACCINE (Unverified Allergy, Unknown, 10/07/18) Subjective 10/09: complaints of pain all over, I asked him of importance to get labs drawn Objective Last 24 Hour Vital Signs Date Time Temp Pulse Resp B/P (MAP) Pulse Ox O2 Delivery O2 Flow Rate FiO2 10/09/18 09:00 Room Air 10/09/18 08:51 70 126/79 10/09/18 08:45 97.6 70 18 126/79 (95) 98 10/09/18 04:00 97.3 75 18 138/99 (112) 95 10/09/18 00:00 98.1 86 20 137/74 (95) 99 10/08/18 21:00 Room Air 10/08/18 20:00 98.4 96 20 131/88 (102) 94 10/08/18 15:30 98.1 80 20 127/72 (90) 93 Intake and Output 10/08/18 10/09/18 19:00 07:00 Intake Total 480 ml 350 ml Output Total 575 ml Balance 480 ml -225 ml Intake Oral 480 ml 350 ml Output Urine Total 575 ml Laboratory Tests 10/08/18 13:45: Calcium (Send out) [Pending], Total Protein (PEP) [Pending], Albumin (PEP) [ Pending], Globulin (PEP) [Pending], Albumin/Globulin Ratio [Pending], Alpha-1- Globulins [Pending], Oyxtj-1-Xlogyzbog [Pending], Beta Globulins [Pending], Beta Gamma Globulin [Pending], PEP Abnormal Protein Bands [Pending], Protein Electrophoresis Interpret [Pending], Parathyroid Hormone (Intact) [Pending] Height (Feet): 5 Height (Inches): 7.00 Weight (Pounds): 170 Objective Vitals normal Gen: well appearing, no apparent distress Head: normocephalic, other - Abrasion forehead Eyes: bilateral eye PERRL ENT: hearing grossly normal, normal pharynx Neck: full range of motion, supple, no meningismus Respiratory: chest non-tender, lungs clear, normal breath sounds CV: regular rate, rhythm GI: normal bowel sounds, non tender, no mass, no organomegaly Musculoskeletal: back normal, gait/station normal, normal range of motion Psychiatric: mood/affect normal Skin: warm/dry Ignacio Ponce MD October 09, 2018 13:42
--- NOTE | 2018-10-09 16:02 | NUR ---
CASE MANAGEMENT:REVIEW 10/09/18 SI:ACUTE HEAD INJURY AMS. HYPERCALCEMIA 98.3 73 18 123/74 98% ON RA IS: ARICEPT PO QHS REMERON PO QHS NORVASC PO QD SEROQUEL PO BID COGENTIN PO BID KEPPRA PO BID : MED/SURG STATUS 3 [facility]; FROM [facility]
[2018-10-09 16:34] VITALS: BP 127/74
--- NOTE | 2018-10-09 19:30 | NUR ---
NURSE NOTES: Received report from KEELEY Strauss and rounds made. Received pt sleeping, easily awaken by verbal stimuli, awake, confused, no distress noted. IV L FA patent and intact. IV fluid infusing as ordered. Safety measures maintained. Bed in lowest position and locked, side rails up x 2 and padded, call light within reach. Will continue to monitor.
--- NOTE | 2018-10-09 19:38 | NUR ---
HAND-OFF: Report given to Raza Martinez RN patient with out no distress.
--- NOTE | 2018-10-09 19:42 | Neurology Progress Note ---
Interim History Interim History ROS Limited/Unobtainable: Yes Complaints: AMS Events: EEG done on October 08-neg for sz Interim History This visit was conducted on October 09, [address] Kirk Floyd. Review of Systems All Systems: reviewed and negative except above Objective Physical Exam Last Vital Signs Date Time Temp Pulse Resp B/P (MAP) Pulse Ox O2 Delivery O2 Flow Rate FiO2 10/09/18 16:34 98.0 75 18 127/74 (91) 98 10/09/18 09:00 Room Air Neurologic Exam Objective Currently patient opens eyes intermittently with some visual tracking. Does not follow commands. Is non verbal. Moving all four extremities with no apparent weakness but unable to test directly. Pupils PERRL Impression/Recommendations Problems: (1) Protein-calorie malnutrition, severe (2) Head injury, acute (3) Schizophrenia (4) Altered mental status Assessment & Plan: EEG ordered - awaiting completion Continue Q4 hour Neuro obs Psych eval and input appreciated (5) Hypercalcemia (6) Lung mass Assessment & Plan: Hypercalcemia and Mass suggest possible Malignancy (7) UTI (urinary tract infection) Status: not improved, unchanged Recommendations Continue Neuro Obs Consider checking TSH - Na 135-145 May need NG/PEG if AMS doesn't improve. Shelli Bains N.P. October 09, 2018 19:42
[2018-10-09 20:00] VITALS: BP 116/70
[2018-10-09] MEDS: Donepezil 5mg Tab ORAL SCH (20:26)
--- NOTE | 2018-10-09 20:53 | General Progress Note ---
Assessment/Plan Problem List: (1) Syncope ICD Codes: R55 - Syncope and collapse SNOMED: 479358024 (2) Head injury ICD Codes: S09.90XA - Unspecified injury of head, initial encounter SNOMED: 28468112 (3) Altered mental status ICD Codes: R41.82 - Altered mental status, unspecified SNOMED: 797328803, 5933977 Qualifiers: Qualified Codes: R41.82 - Altered mental status, unspecified (4) Head injury, acute ICD Codes: S09.90XA - Unspecified injury of head, initial encounter SNOMED: 04200867, 8875715 Qualifiers: Qualified Codes: S09.90XA - Unspecified injury of head, initial encounter (5) Schizophrenia ICD Codes: F20.9 - Schizophrenia, unspecified SNOMED: 62358214 Status: progressing Assessment/Plan: afebrile s/p fall syncope? head trauma moniter reveiwed chart and labs Subjective ROS Limited/Unobtainable: Yes Allergies: Coded Allergies: PNEUMOCOCCAL VACCINE (Unverified Allergy, Unknown, 10/07/18) Objective Last 24 Hour Vital Signs Date Time Temp Pulse Resp B/P (MAP) Pulse Ox O2 Delivery O2 Flow Rate FiO2 10/09/18 16:34 98.0 75 18 127/74 (91) 98 10/09/18 12:00 98.3 73 18 123/74 (90) 98 10/09/18 09:00 Room Air 10/09/18 08:51 70 126/79 10/09/18 08:45 97.6 70 18 126/79 (95) 98 10/09/18 04:00 97.3 75 18 138/99 (112) 95 10/09/18 00:00 98.1 86 20 137/74 (95) 99 10/08/18 21:00 Room Air Intake and Output 10/08/18 10/09/18 19:00 07:00 Intake Total 480 ml 350 ml Output Total 575 ml Balance 480 ml -225 ml Intake Oral 480 ml 350 ml Output Urine Total 575 ml Height (Feet): 5 Height (Inches): 7.00 Weight (Pounds): 170 General Appearance: confused Cardiovascular: normal rate Respiratory/Chest: lungs clear Abdomen: soft Konrad Soares MD October 09, 2018 20:53
[2018-10-10] VITALS: BP 121/68
--- NOTE | 2018-10-10 03:15 | Electroencephalogram ---
DATE OF PROCEDURE: 10/08/2018 REQUESTING PHYSICIAN: Kirk Floyd M.D. READING PHYSICIAN: Kulwinder Cooper M.D. PROCEDURE PERFORMED: Electroencephalogram. HISTORY: This EEG was performed on a 68-year-old gentleman with a history of multiple falls, an altered mental state, cognitive dysfunction, and a seizure disorder. The purpose of this EEG was to evaluate the patient for the degree and type of cerebral dysfunction and to exclude ongoing ictal or interictal phenomena. TECHNICAL NOTE: This EEG was performed on a Essential Viewing acquisition Unit with electrodes placed on the scalp according to the International 10-20 system. [id number]-[id number] and bswsx-el-[id number] montages were used. The EEG was technically satisfactory and was performed while the patient was in a poorly responsive state. OBSERVATIONS: In the poorly responsive state, the background activity consisted of 4-5 Hz theta and 1.5-2.5 Hz delta activity. In addition, 10-12 Hz sleep spindles were also seen. When the patient was stimulated, no significant change was seen in the EEG background. No focal abnormalities or epileptiform discharges were noted. IMPRESSION: This is an abnormal EEG characterized by slowing of the background in the theta and delta range with some rudimentary sleep architecture seen throughout the tracing. COMMENT: This study is consistent with an encephalopathy of a moderately severe degree. Please note that no interictal discharges were seen during this EEG. Kulwinder Cooper M.D., M.S.P.H. DR: JEREMIE JOB#: [id number] [facility]ITAL[facility]sei
[2018-10-10 04:00] VITALS: BP 110/70
[2018-10-10 06:06] LABS: BASOPHILS % (AUTO) 1.4 % (0.0-2.0); EOSINOPHILS % (AUTO) 3.3 % (0.0-3.0); HEMATOCRIT 46.6 % (42.0-52.0); HEMOGLOBIN 15.2 G/DL (14.2-18.0); MEAN CORPUSCULAR VOLUME 97 FL (80-99); NEUTROPHILS % (AUTO) 57.3 % (45.0-75.0); PLATELET COUNT 151 K/UL (150-450); RED CELL DISTRIBUTION WIDTH 13.5 % (11.6-14.8); WHITE BLOOD COUNT 7.8 K/UL (4.8-10.8)
[2018-10-10 06:16] LABS: ANION GAP 6 mmol/L (5-15); BLOOD UREA NITROGEN 17 mg/dL (7-18); CALCIUM 9.6 MG/DL (8.5-10.1); CARBON DIOXIDE 30 MMOL/L (21-32); CHLORIDE 106 MMOL/L (98-107); CREATININE 1.1 MG/DL (0.55-1.30); POTASSIUM 4.3 MMOL/L (3.5-5.1); SODIUM 142 MMOL/L (136-145)
--- NOTE | 2018-10-10 07:36 | NUR ---
HAND-OFF: Report given to KEELEY Ojeda. Pt in stable condition.
--- NOTE | 2018-10-10 07:40 | NUR ---
NURSE NOTES: Patient lying in bed sleeping. No signs and symptoms of pain or distress at this time. Skin intact and dry. IV dressing intact and dry. Bed lowest position. Call light within reach. Will continue to monitor.
[2018-10-10 08:00] VITALS: BP 113/77
[2018-10-10] MEDS: Benztropine 1mg tab ORAL SCH ×2 (08:55→17:18)
[2018-10-10] MEDS: Milk of Magnesia 30ml Ud ORAL SCH (08:55)
[2018-10-10 12:00] VITALS: BP 143/77
--- NOTE | 2018-10-10 12:58 | General Progress Note ---
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 Greatly appreciate consultation! Subjective Constitutional: Denies: no symptoms, chills, diaphoresis, fever, malaise, weakness, other HEENT: Denies: no symptoms, eye pain, blurred vision, tearing, double vision, ear pain, ear discharge, nose pain, nose congestion, throat pain, throat swelling, mouth pain, mouth swelling, other Cardiovascular: Denies: no symptoms, chest pain, edema, irregular heart rate, lightheadedness, palpitations, syncope, other Respiratory: Denies: no symptoms, cough, orthopnea, shortness of breath, SOB with excertion, SOB at rest, sputum, stridor, wheezing, other Genitourinary: Denies: no symptoms, burning, discharge, frequency, flank pain, hematuria, incontinence, pain, urgency, other Neurologic/Psychiatric: Denies: no symptoms, anxiety, depressed, emotional problems, headache, numbness, paresthesia, pre-existing deficit, seizure, tingling, tremors, weakness, other Endocrine: Denies: no symptoms, excessive sweating, flushing, intolerance to cold, intolerance to heat, increased hunger, increased thirst, increased urine, unexplained weight gain, unexplained weight loss, other Allergies: Coded Allergies: PNEUMOCOCCAL VACCINE (Unverified Allergy, Unknown, 10/07/18) Subjective 10/09: complaints of pain all over, I asked him of importance to get labs drawn 10/10: laying in bed, sleeping comfortably, no f/c Objective Last 24 Hour Vital Signs Date Time Temp Pulse Resp B/P (MAP) Pulse Ox O2 Delivery O2 Flow Rate FiO2 10/10/18 12:00 97.2 80 18 143/77 (99) 95 10/10/18 09:00 Room Air 10/10/18 08:56 68 113/77 10/10/18 08:00 97.4 68 19 113/77 (89) 95 10/10/18 04:00 98.4 74 17 110/70 (83) 95 10/10/18 00:00 98.0 81 18 121/68 (85) 95 10/09/18 21:00 Room Air 10/09/18 20:00 97.6 85 17 116/70 (85) 94 10/09/18 16:34 98.0 75 18 127/74 (91) 98 Intake and Output 10/09/18 10/10/18 18:59 06:59 Intake Total 500 ml 590 ml Output Total 800 ml 500 ml Balance -300 ml 90 ml Intake Oral 500 ml 590 ml Output Urine Total 800 ml 500 ml # Voids 1 # Bowel Movements 2 1 Laboratory Tests 10/10/18 04:52: White Blood Count 7.8, Red Blood Count 4.80, Hemoglobin 15.2, Hematocrit 46.6, Mean Corpuscular Volume 97, Mean Corpuscular Hemoglobin 31.7H, Mean Corpuscular Hemoglobin Concent 32.7, Red Cell Distribution Width 13.5, Platelet Count 151, Mean Platelet Volume 7.1, Neutrophils (%) (Auto) 57.3, Lymphocytes (%) (Auto) 27.0, Monocytes (%) (Auto) 11.0H, Eosinophils (%) (Auto) 3.3H, Basophils (%) ( Auto) 1.4, Sodium Level 142, Potassium Level 4.3, Chloride Level 106, Carbon Dioxide Level 30, Anion Gap 6, Blood Urea Nitrogen 17, Creatinine 1.1, Estimat Glomerular Filtration Rate > 60, Glucose Level 86, Calcium Level 9.6 Height (Feet): 5 Height (Inches): 7.00 Weight (Pounds): 170 Objective Vitals normal Gen: well appearing, no apparent distress Head: normocephalic, other - Abrasion forehead Eyes: bilateral eye PERRL ENT: hearing grossly normal, normal pharynx Neck: full range of motion, supple, no meningismus Respiratory: chest non-tender, lungs clear, normal breath sounds CV: regular rate, rhythm GI: normal bowel sounds, non tender, no mass, no organomegaly Musculoskeletal: back normal, gait/station normal, normal range of motion Psychiatric: mood/affect normal Skin: warm/dry Ignacio Ponce MD October 10, 2018 12:58
--- NOTE | 2018-10-10 15:30 | General Progress Note ---
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 Monge and he concurred. Subjective Date patient seen: October 10, 2018 Time patient seen: 15:29 ROS Limited/Unobtainable: Yes Allergies: Coded Allergies: PNEUMOCOCCAL VACCINE (Unverified Allergy, Unknown, 10/07/18) Subjective He is showing no signs of distress or pain. Objective Last 24 Hour Vital Signs Date Time Temp Pulse Resp B/P (MAP) Pulse Ox O2 Delivery O2 Flow Rate FiO2 10/10/18 12:00 97.2 80 18 143/77 (99) 95 10/10/18 09:00 Room Air 10/10/18 08:56 68 113/77 10/10/18 08:00 97.4 68 19 113/77 (89) 95 10/10/18 04:00 98.4 74 17 110/70 (83) 95 10/10/18 00:00 98.0 81 18 121/68 (85) 95 10/09/18 21:00 Room Air 10/09/18 20:00 97.6 85 17 116/70 (85) 94 10/09/18 16:34 98.0 75 18 127/74 (91) 98 Intake and Output 10/09/18 10/10/18 18:59 06:59 Intake Total 500 ml 590 ml Output Total 800 ml 500 ml Balance -300 ml 90 ml Intake Oral 500 ml 590 ml Output Urine Total 800 ml 500 ml # Voids 1 # Bowel Movements 2 1 Laboratory Tests 10/10/18 04:52: White Blood Count 7.8, Red Blood Count 4.80, Hemoglobin 15.2, Hematocrit 46.6, Mean Corpuscular Volume 97, Mean Corpuscular Hemoglobin 31.7H, Mean Corpuscular Hemoglobin Concent 32.7, Red Cell Distribution Width 13.5, Platelet Count 151, Mean Platelet Volume 7.1, Neutrophils (%) (Auto) 57.3, Lymphocytes (%) (Auto) 27.0, Monocytes (%) (Auto) 11.0H, Eosinophils (%) (Auto) 3.3H, Basophils (%) ( Auto) 1.4, Sodium Level 142, Potassium Level 4.3, Chloride Level 106, Carbon Dioxide Level 30, Anion Gap 6, Blood Urea Nitrogen 17, Creatinine 1.1, Estimat Glomerular Filtration Rate > 60, Glucose Level 86, Calcium Level 9.6 Height (Feet): 5 Height (Inches): 7.00 Weight (Pounds): 170 Objective General Appearance: no apparent distress, alert EENT: PERRL/EOMI, normal ENT inspection Neck: non-tender, normal alignment Cardiovascular: normal rate, regular rhythm Respiratory/Chest: lungs clear, normal breath sounds Abdomen: non tender, soft Edema: mild edema Neurologic: alert Skin: normal pigmentation Parish Cheney October 10, 2018 15:30
[2018-10-10 16:00] VITALS: BP 119/73
--- NOTE | 2018-10-10 19:10 | NUR ---
HAND-OFF: Report given to Raza MINA. Patient in stable condition.
--- NOTE | 2018-10-10 19:30 | NUR ---
NURSE NOTES: Patient lying in bed sleeping, asleep, easily awaken by verbal stimuli, no distress noted. No signs and symptoms of pain or distress at this time. Skin intact and dry. IV dressing intact and dry. Bed lowest position. Call light within reach. Will continue to monitor.
[2018-10-10 20:00] VITALS: BP 155/82
[2018-10-10] MEDS: Donepezil 5mg Tab ORAL SCH (20:37)
--- NOTE | 2018-10-10 20:53 | General Progress Note ---
Assessment/Plan Problem List: (1) Syncope ICD Codes: R55 - Syncope and collapse SNOMED: 207950413 (2) Head injury ICD Codes: S09.90XA - Unspecified injury of head, initial encounter SNOMED: 94054963 (3) Altered mental status ICD Codes: R41.82 - Altered mental status, unspecified SNOMED: 276104489, 1651225 Qualifiers: Qualified Codes: R41.82 - Altered mental status, unspecified (4) Head injury, acute ICD Codes: S09.90XA - Unspecified injury of head, initial encounter SNOMED: 40892045, 4093409 Qualifiers: Qualified Codes: S09.90XA - Unspecified injury of head, initial encounter (5) Schizophrenia ICD Codes: F20.9 - Schizophrenia, unspecified SNOMED: 21141192 Status: stable Assessment/Plan: afebrile no acute events no changes will dc in am head trauma moniter reveiwed chart and labs Subjective ROS Limited/Unobtainable: Yes Allergies: Coded Allergies: PNEUMOCOCCAL VACCINE (Unverified Allergy, Unknown, 10/07/18) Objective Last 24 Hour Vital Signs Date Time Temp Pulse Resp B/P (MAP) Pulse Ox O2 Delivery O2 Flow Rate FiO2 10/10/18 16:00 97.9 78 20 119/73 (88) 94 10/10/18 12:00 97.2 80 18 143/77 (99) 95 10/10/18 09:00 Room Air 10/10/18 08:56 68 113/77 10/10/18 08:00 97.4 68 19 113/77 (89) 95 10/10/18 04:00 98.4 74 17 110/70 (83) 95 10/10/18 00:00 98.0 81 18 121/68 (85) 95 10/09/18 21:00 Room Air Intake and Output 10/09/18 10/10/18 19:00 07:00 Intake Total 500 ml 590 ml Output Total 800 ml 500 ml Balance -300 ml 90 ml Intake Oral 500 ml 590 ml Output Urine Total 800 ml 500 ml # Voids 1 # Bowel Movements 2 1 Laboratory Tests 10/10/18 04:52: White Blood Count 7.8, Red Blood Count 4.80, Hemoglobin 15.2, Hematocrit 46.6, Mean Corpuscular Volume 97, Mean Corpuscular Hemoglobin 31.7H, Mean Corpuscular Hemoglobin Concent 32.7, Red Cell Distribution Width 13.5, Platelet Count 151, Mean Platelet Volume 7.1, Neutrophils (%) (Auto) 57.3, Lymphocytes (%) (Auto) 27.0, Monocytes (%) (Auto) 11.0H, Eosinophils (%) (Auto) 3.3H, Basophils (%) ( Auto) 1.4, Sodium Level 142, Potassium Level 4.3, Chloride Level 106, Carbon Dioxide Level 30, Anion Gap 6, Blood Urea Nitrogen 17, Creatinine 1.1, Estimat Glomerular Filtration Rate > 60, Glucose Level 86, Calcium Level 9.6 Height (Feet): 5 Height (Inches): 7.00 Weight (Pounds): 170 Neck: supple Cardiovascular: normal rate Respiratory/Chest: lungs clear Abdomen: soft Konrad Soares MD October 10, 2018 20:53
[2018-10-11] VITALS: BP 132/72
[2018-10-11 04:00] VITALS: BP 132/79
[2018-10-11 07:14] LABS: ANION GAP 7 mmol/L (5-15); BLOOD UREA NITROGEN 17 mg/dL (7-18); CALCIUM 9.9 MG/DL (8.5-10.1); CARBON DIOXIDE 28 MMOL/L (21-32); CHLORIDE 104 MMOL/L (98-107); SODIUM 139 MMOL/L (136-145)
[2018-10-11 07:17] LABS: BASOPHILS % (AUTO) 1.5 % (0.0-2.0); HEMATOCRIT 46.8 % (42.0-52.0); HEMOGLOBIN 15.8 G/DL (14.2-18.0); LYMPHOCYTES % (AUTO) 18.7 % (20.0-45.0); MEAN CORPUSCULAR VOLUME 94 FL (80-99); MONOCYTES % (AUTO) 6.8 % (1.0-10.0); PLATELET COUNT 207 K/UL (150-450); RED BLOOD COUNT 4.95 M/UL (4.70-6.10); RED CELL DISTRIBUTION WIDTH 13.4 % (11.6-14.8); WHITE BLOOD COUNT 11.7 K/UL (4.8-10.8)
--- NOTE | 2018-10-11 07:25 | NUR ---
NURSE NOTES: Report received from Raza RN, rounds made. Patient resting in semi-fowlers position in bed. Seizure pads in place. No seizure activity noted. Patient alert, to name, calm. No distress on RA. IV heplock intact, site asymptomatic. Condom catheter in place, draining yellow, clear urine to gravity in drainage bag. Call light in reach, bed in lowest position, will continue to monitor.
--- NOTE | 2018-10-11 07:30 | NUR ---
HAND-OFF: Report given to KEELEY Mckinley. Pt in stable condition.
[2018-10-11 08:00] VITALS: BP 121/74
--- NOTE | 2018-10-11 09:20 | General Progress Note ---
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 Monge and he concurred. Subjective Date patient seen: October 11, 2018 Time patient seen: 08:00 - am ROS Limited/Unobtainable: Yes Allergies: Coded Allergies: PNEUMOCOCCAL VACCINE (Unverified Allergy, Unknown, 10/07/18) Subjective In bed no verbal, No signs of pain or distress. Objective Last 24 Hour Vital Signs Date Time Temp Pulse Resp B/P (MAP) Pulse Ox O2 Delivery O2 Flow Rate FiO2 10/11/18 08:00 98.2 75 18 121/74 (90) 98 10/11/18 04:00 97.7 66 17 132/79 (96) 94 10/11/18 00:00 98.7 76 19 132/72 (92) 98 10/10/18 21:00 Room Air 10/10/18 20:00 98.5 96 19 155/82 (106) 94 10/10/18 16:00 97.9 78 20 119/73 (88) 94 10/10/18 12:00 97.2 80 18 143/77 (99) 95 Intake and Output 10/10/18 10/11/18 19:00 07:00 Intake Total 240 ml 50 ml Output Total 600 ml 300 ml Balance -360 ml -250 ml Intake Oral 240 ml 50 ml Output Urine Total 600 ml 300 ml Laboratory Tests 10/11/18 06:44: White Blood Count 11.7H, Red Blood Count 4.95, Hemoglobin 15.8, Hematocrit 46.8 , Mean Corpuscular Volume 94, Mean Corpuscular Hemoglobin 31.9H, Mean Corpuscular Hemoglobin Concent 33.8, Red Cell Distribution Width 13.4, Platelet Count 207, Mean Platelet Volume 6.6, Neutrophils (%) (Auto) 72.0, Lymphocytes (% ) (Auto) 18.7L, Monocytes (%) (Auto) 6.8, Eosinophils (%) (Auto) 1.0, Basophils (%) (Auto) 1.5, Sodium Level 139, Potassium Level 4.0, Chloride Level 104, Carbon Dioxide Level 28, Anion Gap 7, Blood Urea Nitrogen 17, Creatinine 1.0, Estimat Glomerular Filtration Rate > 60, Glucose Level 105, Calcium Level 9.9 Height (Feet): 5 Height (Inches): 7.00 Weight (Pounds): 170 Objective General Appearance: no apparent distress, Cardiovascular: normal rate, regular rhythm Respiratory/Chest: lungs clear, normal breath sounds Abdomen: non tender, soft Edema: mild edema Skin: normal pigmentation Parish Cheney October 11, 2018 09:19
[2018-10-11] MEDS: Benztropine 1mg tab ORAL SCH (09:39)
[2018-10-11] MEDS: Milk of Magnesia 30ml Ud ORAL SCH (09:40)
--- NOTE | 2018-10-11 10:00 | NUR ---
NURSE NOTES: Patient repositioned every 2 hours, skin remains clean, dry and intact. Bilateral SCDs on. No complains of pain or SOB, will continue to monitor.
--- NOTE | 2018-10-11 11:18 | Neurology Progress Note ---
Interim History Interim History ROS Limited/Unobtainable: Yes Complaints: AMS Events: No new events Interim History This visit was conducted on October 10, [address] Kirk Floyd. Objective Physical Exam Last Vital Signs Date Time Temp Pulse Resp B/P (MAP) Pulse Ox O2 Delivery O2 Flow Rate FiO2 10/11/18 09:40 75 121/74 10/11/18 08:00 98.2 18 98 10/10/18 21:00 Room Air Laboratory Tests Test 10/11/18 06:44 White Blood Count 11.7 K/UL (4.8-10.8) H Red Blood Count 4.95 M/UL (4.70-6.10) Hemoglobin 15.8 G/DL (14.2-18.0) Hematocrit 46.8 % (42.0-52.0) Mean Corpuscular Volume 94 FL (80-99) Mean Corpuscular Hemoglobin 31.9 PG (27.0-31.0) H Mean Corpuscular Hemoglobin Concent 33.8 G/DL (32.0-36.0) Red Cell Distribution Width 13.4 % (11.6-14.8) Platelet Count 207 K/UL (150-450) Mean Platelet Volume 6.6 FL (6.5-10.1) Neutrophils (%) (Auto) 72.0 % (45.0-75.0) Lymphocytes (%) (Auto) 18.7 % (20.0-45.0) L Monocytes (%) (Auto) 6.8 % (1.0-10.0) Eosinophils (%) (Auto) 1.0 % (0.0-3.0) Basophils (%) (Auto) 1.5 % (0.0-2.0) Sodium Level 139 MMOL/L (136-145) Potassium Level 4.0 MMOL/L (3.5-5.1) Chloride Level 104 MMOL/L (98-107) Carbon Dioxide Level 28 MMOL/L (21-32) Anion Gap 7 mmol/L (5-15) Blood Urea Nitrogen 17 mg/dL (7-18) Creatinine 1.0 MG/DL (0.55-1.30) Estimat Glomerular Filtration Rate > 60 mL/min (>60) Glucose Level 105 MG/DL (74-106) Calcium Level 9.9 MG/DL (8.5-10.1) Thyroid Stimulating Hormone (TSH) Pending General: well developed, well nourished, no acute distress Head: normocophalic, atraumatic Neck: no rigidity EENT: benign Neurologic Exam Mental Status: other - Eyes only opening intermittently with some tracking and conjugated movements- non verbal and not following commands. Cranial Nerves III, IV, : PERRLA, EOMI Cranial Nerve VII: normal facial expressions Cranial Nerve VIII: no nystagmus Motor System: other - OLSON x 4 Antigravity but not to command- W/D to noxious stimuli. Objective Currently patient opens eyes intermittently with some visual tracking. Does not follow commands. Is non verbal. Moving all four extremities with no apparent weakness but unable to test directly. Pupils PERRL Impression/Recommendations Problems: (1) Protein-calorie malnutrition, severe (2) Head injury, acute (3) Schizophrenia (4) Altered mental status Assessment & Plan: EEG ordered -negative for seizure but with some encephalopathy seen with generalized slowing. Continue Q4 hour Neuro obs Consider improved nutrition with PEG or NG - Psych eval and input appreciated (5) Hypercalcemia (6) Lung mass Assessment & Plan: Hypercalcemia and Mass suggest possible Malignancy (7) UTI (urinary tract infection) Status: not improved, unchanged Recommendations Continue Neuro Obs Consider checking TSH - Na 135-145 May need NG/PEG if AMS doesn't improve. Consider reducing/ changing psych medication regimen. Shelli Bains N.P. October 11, 2018 11:18
--- NOTE | 2018-10-11 11:22 | Neurology Progress Note ---
Interim History Interim History ROS Limited/Unobtainable: Yes Complaints: AMS Events: No new events Interim History This visit was conducted on October 11, [address] Kirk Floyd. Review of Systems Neuro Review of Systems Patient still non verbal and unable to report Objective Physical Exam Last Vital Signs Date Time Temp Pulse Resp B/P (MAP) Pulse Ox O2 Delivery O2 Flow Rate FiO2 10/11/18 09:40 75 121/74 10/11/18 08:00 98.2 18 98 10/10/18 21:00 Room Air Laboratory Tests Test 10/11/18 06:44 White Blood Count 11.7 K/UL (4.8-10.8) H Red Blood Count 4.95 M/UL (4.70-6.10) Hemoglobin 15.8 G/DL (14.2-18.0) Hematocrit 46.8 % (42.0-52.0) Mean Corpuscular Volume 94 FL (80-99) Mean Corpuscular Hemoglobin 31.9 PG (27.0-31.0) H Mean Corpuscular Hemoglobin Concent 33.8 G/DL (32.0-36.0) Red Cell Distribution Width 13.4 % (11.6-14.8) Platelet Count 207 K/UL (150-450) Mean Platelet Volume 6.6 FL (6.5-10.1) Neutrophils (%) (Auto) 72.0 % (45.0-75.0) Lymphocytes (%) (Auto) 18.7 % (20.0-45.0) L Monocytes (%) (Auto) 6.8 % (1.0-10.0) Eosinophils (%) (Auto) 1.0 % (0.0-3.0) Basophils (%) (Auto) 1.5 % (0.0-2.0) Sodium Level 139 MMOL/L (136-145) Potassium Level 4.0 MMOL/L (3.5-5.1) Chloride Level 104 MMOL/L (98-107) Carbon Dioxide Level 28 MMOL/L (21-32) Anion Gap 7 mmol/L (5-15) Blood Urea Nitrogen 17 mg/dL (7-18) Creatinine 1.0 MG/DL (0.55-1.30) Estimat Glomerular Filtration Rate > 60 mL/min (>60) Glucose Level 105 MG/DL (74-106) Calcium Level 9.9 MG/DL (8.5-10.1) Thyroid Stimulating Hormone (TSH) Pending General: well developed, well nourished, no acute distress Head: normocophalic, atraumatic Neck: no rigidity EENT: benign Neurologic Exam Mental Status: other - Eyes only opening intermittently with some tracking and conjugated movements- non verbal and not following commands. Cranial Nerves III, IV, : PERRLA, EOMI Cranial Nerve VII: normal facial expressions Cranial Nerve VIII: no nystagmus Motor System: other - OLSON x 4 Antigravity but not to command- W/D to noxious stimuli. Objective Currently patient opens eyes intermittently with some visual tracking. Does not follow commands. Is non verbal. Moving all four extremities with no apparent weakness but unable to test directly. Pupils PERRL Impression/Recommendations Problems: (1) Protein-calorie malnutrition, severe (2) Head injury, acute (3) Schizophrenia (4) Altered mental status Assessment & Plan: EEG ordered -negative for seizure but with some encephalopathy seen with generalized slowing. Continue Q4 hour Neuro obs Consider improved nutrition with PEG or NG - Psych eval and input appreciated (5) Hypercalcemia (6) Lung mass Assessment & Plan: Hypercalcemia and Mass suggest possible Malignancy (7) UTI (urinary tract infection) Status: not improved, unchanged Recommendations Continue Neuro Obs Consider checking TSH - Na 135-145 May need NG/PEG if AMS doesn't improve. Consider reducing/ changing psych medication regimen. Shelli Bains N.P. October 11, 2018 11:22
--- NOTE | 2018-10-11 11:46 | NUR ---
DISCHARGE PLANNING DISCHARGE ORDER NOTED Patient has been accepted back to; [facility] [address] [place] [address] Bed:5B Skilled [phone] for Nurse to Nurse report [facility] ETA for transportation: 13:00
--- NOTE | 2018-10-11 11:56 | NUR ---
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
[2018-10-11 12:00] VITALS: BP 120/71
--- NOTE | 2018-10-11 14:07 | NUR ---
RD ASSESSMENT & RECOMMENDATIONS SEE CARE ACTIVITY FOR COMPLETE ASSESSMENT DAILY ESTIMATED NEEDS: Needs based on General 77kg 25-30 kcals/kg 8294-0006 total kcals .8-1 g protein/kg 62-77 g total protein 25-30 mL/kg 1192-0286 total fluid mLs NUTRITION DIAGNOSIS: 1. Difficulty chewing r/t mental status as evidenced by pt on ground texture diet. CURRENT DIET: Regular, mechanical soft, ground PO DIET RECOMMENDATIONS: Maintain Regular diet, texture per [employer] ADDITIONAL RECOMMENDATIONS: 1) Add Ensure 1 bottle daily 2) Obtain a calibrated bed scale weight 3) Check lytes daily, replete as needed
--- NOTE | 2018-10-11 14:11 | General Progress Note ---
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 Greatly appreciate consultation! Subjective Cardiovascular: Denies: no symptoms, chest pain, edema, irregular heart rate, lightheadedness, palpitations, syncope, other Respiratory: Denies: no symptoms, cough, orthopnea, shortness of breath, SOB with excertion, SOB at rest, sputum, stridor, wheezing, other Gastrointestinal/Abdominal: Denies: no symptoms, abdomen distended, abdominal pain, black stools, tarry stools, blood in stool, constipated, diarrhea, difficulty swallowing, nausea, poor appetite, poor fluid intake, rectal bleeding , vomiting, other Genitourinary: Denies: no symptoms, burning, discharge, frequency, flank pain, hematuria, incontinence, pain, urgency, other Neurologic/Psychiatric: Denies: no symptoms, anxiety, depressed, emotional problems, headache, numbness, paresthesia, pre-existing deficit, seizure, tingling, tremors, weakness, other Hematologic/Lymphatic: Denies: no symptoms, anemia, easy bleeding, easy bruising, other Allergies: Coded Allergies: PNEUMOCOCCAL VACCINE (Unverified Allergy, Unknown, 10/07/18) Subjective 10/09: complaints of pain all over, I asked him of importance to get labs drawn 10/10: laying in bed, sleeping comfortably, no f/c 10/11: doesn't follow commands well, cbc reviewed, potential dc today Objective Last 24 Hour Vital Signs Date Time Temp Pulse Resp B/P (MAP) Pulse Ox O2 Delivery O2 Flow Rate FiO2 10/11/18 12:00 98.0 72 17 120/71 (87) 98 10/11/18 09:40 75 121/74 10/11/18 09:00 Room Air 10/11/18 08:00 98.2 75 18 121/74 (90) 98 10/11/18 04:00 97.7 66 17 132/79 (96) 94 10/11/18 00:00 98.7 76 19 132/72 (92) 98 10/10/18 21:00 Room Air 10/10/18 20:00 98.5 96 19 155/82 (106) 94 10/10/18 16:00 97.9 78 20 119/73 (88) 94 Intake and Output 10/10/18 10/11/18 18:59 06:59 Intake Total 240 ml 50 ml Output Total 600 ml 300 ml Balance -360 ml -250 ml Intake Oral 240 ml 50 ml Output Urine Total 600 ml 300 ml Laboratory Tests 10/11/18 06:44: White Blood Count 11.7H, Red Blood Count 4.95, Hemoglobin 15.8, Hematocrit 46.8 , Mean Corpuscular Volume 94, Mean Corpuscular Hemoglobin 31.9H, Mean Corpuscular Hemoglobin Concent 33.8, Red Cell Distribution Width 13.4, Platelet Count 207, Mean Platelet Volume 6.6, Neutrophils (%) (Auto) 72.0, Lymphocytes (% ) (Auto) 18.7L, Monocytes (%) (Auto) 6.8, Eosinophils (%) (Auto) 1.0, Basophils (%) (Auto) 1.5, Sodium Level 139, Potassium Level 4.0, Chloride Level 104, Carbon Dioxide Level 28, Anion Gap 7, Blood Urea Nitrogen 17, Creatinine 1.0, Estimat Glomerular Filtration Rate > 60, Glucose Level 105, Calcium Level 9.9, Thyroid Stimulating Hormone (TSH) 0.743 Height (Feet): 5 Height (Inches): 7.00 Weight (Pounds): 170 Objective Vitals normal Gen: well appearing, no apparent distress Head: normocephalic, other - Abrasion forehead Eyes: bilateral eye PERRL ENT: hearing grossly normal, normal pharynx Neck: full range of motion, supple, no meningismus Respiratory: chest non-tender, lungs clear, normal breath sounds CV: regular rate, rhythm GI: normal bowel sounds, non tender, no mass, no organomegaly Musculoskeletal: back normal, gait/station normal, normal range of motion Psychiatric: mood/affect normal Skin: warm/dry Ignacio Ponce MD October 11, 2018 14:11
--- NOTE | 2018-10-11 14:20 | NUR ---
NURSE NOTES: Notified patient's daughter, Jacquelyn, discharge plans for today at [address] [facility] via [facility], verbalized understanding, she will meet patient at SNF today. Report called to Jose MARSHALL at [facility].
--- NOTE | 2018-10-11 15:40 | NUR ---
NURSE NOTES: Report given to [facility]. IV discontinued, no active bleeding. Patient transferred in stable condition, no belongings. Called Nathaly PEREZ and Jacquelyn, daughter to update on [facility] last picker time.
--- NOTE | 2018-10-11 19:45 | Electroencephalogram ---
DATE OF PROCEDURE: 10/10/2018 REQUESTING PHYSICIAN: Kirk Floyd M.D. READING PHYSICIAN: Kulwinder Cooper M.D. PROCEDURE PERFORMED: Electroencephalogram. HISTORY: This EEG was performed on a 68-year-old gentleman with a history of cerebrovascular disease, a seizure disorder, and an alteration in mental state. The purpose of this EEG was to evaluate the patient for the degree and type of cerebral dysfunction and to exclude ongoing ictal or interictal phenomena. TECHNICAL NOTE: This EEG was performed on a [employer] with electrodes placed on the scalp according to the International 10-20 system. [id number] and [id number] montages were used. The EEG was technically satisfactory and was performed while the patient was in a poorly responsive state. OBSERVATIONS: In the reportedly poorly responsive state, the background activity consisted of 4-5 Hz theta with 1.5-2 Hz delta activity. From time to time, runs of anteriorly predominant polymorphic delta activity were seen. No epileptiform discharges were noted. IMPRESSION: This is an abnormal EEG characterized by: 1. Slowing of the background in the 4-5 Hz theta and 1.5-2 Hz delta range. 2. The presence of runs of anteriorly predominant polymorphic delta activity occurring from time to time. COMMENT: This study is consistent with an encephalopathy of a moderately severe degree. Clinical correlation is recommended. Kulwinder Cooper M.D., M.S.P.H. DR: SORAYA JOB#: [id number]
--- NOTE | 2018-10-14 12:15 | Discharge Summary ---
Discharge Summary Discharge Summary _ DATE OF ADMISSION: 10/07/2018 DATE OF DISCHARGE: 10/11/2018 DISCHARGED BY: Dr Soares REASON FOR ADMISSION: 68 years old male with past medical history of hypertension, seizure disorder, dementia, presented after unwitnessed fall earlier that day prior to presentation. No other injury reported. Patient was complaining of pain in his head. No nausea, no vomiting. No fever or chills. No other complaint. Upon evaluation vital signs were stable. Physical examination revealed forehead abrasion and hematoma. CT of the head revealed no acute intracranial bleeding, mass-effect or edema. Moderate atrophy of the brain noted. Evidence of chronic small vessel disease involving white matter tracts noted. Patient subsequently was admitted for further management CONSULTANTS: neurologist Dr. Floyd cop/oncologist Dr. Ponce pain specialist Dr. Monge [facility] COURSE: Patient admitted. Brain MRI revealed no acute intracranial findings. Moderate to severe atrophy evidence of chronic small vessel disease, involving white matter tracts noted. Patient had EEG, which was consistent with encephalopathy of moderate to severe decrease. No interictal discharges were seen during this EEG. Neuro checks were done every 4 hours. Seizure precaution maintained. Keppra continued. No evidence of seizure activity while in the hospital Patient also complained of right hand pain. Right hand x-ray revealed no acute fracture, but demonstrated fifth DIP flexion deformity, acuity indeterminate. 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 Pain management was addressed as per pain specialist recommendation. Pain was controlled. Patient initially had hypercalcemia. Per oncologist, hypercalcemia was possibly secondary to dehydration. Patient initially was provided with IV hydration. Calcium down to normal -9.5. PTH within normal limits. Serum protein electrophoresis within normal limits as well . Blood pressure was closely monitored and managed with calcium channel demario. Blood pressure remained stable. Psychiatric medication from the facility continued. Hemodynamic status was closely monitored and remained stable. Protein supplements implemented in plan of care. Patient clinically stabilized and was ready for discharge to the alf facility for continuation of care. 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 DISCHARGE INSTRUCTIONS: Patient was discharged to the alf facility. Follow up with medical doctor at the facility. I have been assigned to dictate discharge summary for this account. I was not involved in the patient's management. Ghazal Maradiaga NP October 14, 2018 12:15
== END 2018-10-11 15:50 | DRG 913 ==
LOC: EDBD 02:22 → EMR 02:35 → 3E 03:04 → OBSVTOIN 03:04 → EDBEDREQ 03:14
DX: S09.90XA Unspecified injury of head, initial encounter (principal); E43 Unspecified severe protein-calorie malnutrition; G93.40 Encephalopathy, unspecified; W19.XXXA Unspecified fall, initial encounter; Y92.129 Unspecified place in nursing home as the place of occurrence of the external cause; F03.90 Unspecified dementia, unspecified severity, without behavioral disturbance, psychotic disturbance, mood disturbance, and anxiety; G40.909 Epilepsy, unspecified, not intractable, without status epilepticus; F20.9 Schizophrenia, unspecified; Z88.7 Allergy status to serum and vaccine; E83.52 Hypercalcemia; R55 Syncope and collapse; N40.0 Benign prostatic hyperplasia without lower urinary tract symptoms; R91.8 Other nonspecific abnormal finding of lung field; M11.231 Other chondrocalcinosis, right wrist; M20.091 Other deformity of right finger(s); I10 Essential (primary) hypertension; Z68.26 Body mass index [BMI] 26.0-26.9, adult
CPT/HCPCS: 36415; 70450; 70551; 80048; 80299; 81001; 83970; 84165; 84443; 85025; 87081; 95819; 99284

== ENCOUNTER 2019-05-08 19:06 | Inpatient (IN) | payer MEDICARE, MEDICAID ==
[~2019-05-08] VITALS: Ht 175.3 cm; Wt 75.3 kg
[2019-05-08 19:06] VITALS: BP 137/83
[~2019-05-08 19:06] MED LIST changes: +MOM30 ML ORAL; +REMERON15 M1 ORAL
[2019-05-08] MEDS ORDERED: Vancomycin 1 GM in NS 275 ML IV ONE (19:15)
[2019-05-08] MEDS ORDERED: Cefepime HCl 2 GM in NS 110 ML IV ONE (19:15)
[2019-05-08 20:31] LABS: BASOPHILS % (AUTO) 1.3 % (0.0-2.0); EOSINOPHILS % (AUTO) 0.6 % (0.0-3.0); HEMATOCRIT 44.9 % (42.0-52.0); HEMOGLOBIN 15.8 G/DL (14.2-18.0); MEAN CORPUSCULAR VOLUME 91 FL (80-99); MONOCYTES % (AUTO) 9.3 % (1.0-10.0); NEUTROPHILS % (AUTO) 70.8 % (45.0-75.0); PLATELET COUNT 302 K/UL (150-450); RED BLOOD COUNT 4.91 M/UL (4.70-6.10); RED CELL DISTRIBUTION WIDTH 12.3 % (11.6-14.8); WHITE BLOOD COUNT 14.4 K/UL (4.8-10.8)
[2019-05-08 20:45] LABS: INR 0.9 (0.9-1.1)
[2019-05-08 20:54] LABS: ANION GAP 7 mmol/L (5-15); BLOOD UREA NITROGEN 13 mg/dL (7-18); CALCIUM 9.8 MG/DL (8.5-10.1); CARBON DIOXIDE 32 MMOL/L (21-32); CHLORIDE 105 MMOL/L (98-107); POTASSIUM 4.5 MMOL/L (3.5-5.1); SODIUM 144 MMOL/L (136-145)
--- NOTE | 2019-05-08 21:05 | Emergency Room Report ---
History of Present Illness General Chief Complaint: Upper Respiratory Illness Source: Medical Record Present Illness HPI 69 year old male history of COPD history of encephalopathy noncommunicative, presents with respiratory distress, patient found to be hypoxic in the senior care, congested, and more altered, unknown aggravating relieving factors severity is severe, constant, symptoms started over the past 24 hours patient unable to give a history Allergies: Coded Allergies: PNEUMOCOCCAL VACCINE (Unverified Allergy, Unknown, 10/07/18) Patient History Limited by: medical condition - Noncommunicative Past Medical History: see triage record Reviewed Nursing Documentation: PMH: Agreed; PSxH: Agreed Nursing Documentation-PMH Hx Hypertension: Yes - Essential Hypertension Hx Gastrointestinal Problems: Yes - Diverticulosis Hx Neurological Problems: Yes - Altered Mental Status. Hx Dementia: Yes - Unspecified, without behavioral disturbance Hx Seizures: Yes Hx Epilepsy: Yes - Unspecified, not intractable, without status epilepticus Hx Syncope: Yes Review of Systems All Other Systems: limited - Not communicative Physical Exam Vital Signs Date Time Temp Pulse Resp B/P (MAP) Pulse Ox O2 Delivery O2 Flow Rate FiO2 05/08/19 19:05 98.4 84 18 137/83 (101) Sp02 EP Interpretation: reviewed, normal General Appearance: moderate distress, thin, Chronically Ill Head: normocephalic, atraumatic Eyes: bilateral eye PERRL, bilateral eye EOMI ENT: uvula midline, dry mucus membranes Neck: supple, thyroid normal, supple/symm/no masses Respiratory: accessory muscle use, rales, rhonchi Cardiovascular #1: normal peripheral pulses, no edema, no gallop, no murmur, tachycardia Gastrointestinal: non tender, soft, no guarding, no rebound Musculoskeletal: normal inspection Neurologic: alert, oriented x3 Psychiatric: mood/affect normal Skin: no rash, warm/dry Procedures Critical Care Time Critical Care Time Given the critical condition in which the patient arrived, the patient was immediately assessed by myself and the nurse, and cardiac monitoring initiated due to the potential for rapid decompensation of the patient's clinical condition. During the course of the patient's stay, I spent a considerable amount of time at the bedside performing serial re-evaluations of the patient's hemodynamic and clinical status because of the recognized potential threat to life or limb in this condition. I then had a chance to review not only all of the available current laboratory and radiographic studies obtained today, but I also reviewed old records available to me at the time. Additionally, any ancillary information available including tax form preparer records were reviewed. Sequential vital signs were obtained. Critical Care time of 33 minutes was performed exclusive of billable procedures. Medical Decision Making Diagnostic Impression: Primary Impression: COPD (chronic obstructive pulmonary disease) Qualified Codes: J44.9 - Chronic obstructive pulmonary disease, unspecified Additional Impressions: HCAP (healthcare-associated pneumonia) Dyspnea Qualified Codes: R06.00 - Dyspnea, unspecified Hypoxia Dehydration ER Course 69-year-old male presents with hypoxia, tachycardia, patient with possible COPD exacerbation versus pneumonia healthcare associated pneumonia Fluid resuscitation started, broad-spectrum antibiotic started Multiple re-evaluations of the patient showed improvement with fluid administration and antibiotics Patient will be admitted to the stepdown unit given his critical condition Patient admitted to Dr. Soares Laboratory Tests Test 05/08/19 20:00 05/08/19 21:15 White Blood Count 14.4 K/UL (4.8-10.8) H Red Blood Count 4.91 M/UL (4.70-6.10) Hemoglobin 15.8 G/DL (14.2-18.0) Hematocrit 44.9 % (42.0-52.0) Mean Corpuscular Volume 91 FL (80-99) Mean Corpuscular Hemoglobin 32.2 PG (27.0-31.0) H Mean Corpuscular Hemoglobin Concent 35.2 G/DL (32.0-36.0) Red Cell Distribution Width 12.3 % (11.6-14.8) Platelet Count 302 K/UL (150-450) Mean Platelet Volume 6.0 FL (6.5-10.1) L Neutrophils (%) (Auto) 70.8 % (45.0-75.0) Lymphocytes (%) (Auto) 18.0 % (20.0-45.0) L Monocytes (%) (Auto) 9.3 % (1.0-10.0) Eosinophils (%) (Auto) 0.6 % (0.0-3.0) Basophils (%) (Auto) 1.3 % (0.0-2.0) Prothrombin Time 10.0 SEC (9.30-11.50) Prothrombin Time INR 0.9 (0.9-1.1) PTT 33 SEC (23-33) Sodium Level 144 MMOL/L (136-145) Potassium Level 4.5 MMOL/L (3.5-5.1) Chloride Level 105 MMOL/L (98-107) Carbon Dioxide Level 32 MMOL/L (21-32) Anion Gap 7 mmol/L (5-15) Blood Urea Nitrogen 13 mg/dL (7-18) Creatinine 1.0 MG/DL (0.55-1.30) Estimate Glomerular Filtration Rate mL/min (>60) Glucose Level 113 MG/DL (74-106) H Lactic Acid Level 2.40 mmol/L (0.4-2.0) H Calcium Level 9.8 MG/DL (8.5-10.1) Phosphorus Level 3.9 MG/DL (2.5-4.9) Magnesium Level 2.2 MG/DL (1.8-2.4) Total Bilirubin 0.5 MG/DL (0.2-1.0) Aspartate Amino Transferase (AST) 49 U/L (15-37) H Alanine Aminotransferase (ALT) 55 U/L (12-78) Alkaline Phosphatase 266 U/L (46-116) H Total Creatine Kinase 93 U/L (26-308) Creatine Kinase MB 0.7 NG/ML (0.0-3.6) Creatine Kinase MB Relative Index 0.7 Troponin I 0.000 ng/mL (0.000-0.056) Pro-B-Type Natriuretic Peptide 22 pg/mL (0-125) Total Protein 9.0 G/DL (6.4-8.2) H Albumin 3.6 G/DL (3.4-5.0) Globulin 5.4 g/dL Albumin/Globulin Ratio 0.7 (1.0-2.7) L Lipase 112 U/L (73-393) Arterial Blood pH Pending Arterial Blood Partial Pressure CO2 Pending Arterial Blood Partial Pressure O2 Pending Arterial Blood HCO3 Pending Arterial Blood Oxygen Saturation Pending Arterial Blood Base Excess Pending Daryl Test Pending EKG Diagnostic Results EKG Time: 19:25 EP Interpretation: Sinus tachycardia, rate 103, QTc 442, no acute ST elevations , normal axis Rhythm Strip Diag. Results Rhythm Strip Time: 21:01 EP Interpretation: yes Rate: 102 Rhythm: other - Sinus tachycardia Chest X-Ray Diagnostic Results Chest X-Ray Diagnostic Results : Chest X-Ray Ordered: Yes # of Views/Limited/Complete: 1 View Indication: Shortness of Breath EP Interpretation: Yes Interpretation: other - Right lower lobe consolidation Impression: Other - Pneumonia Electronically Signed by: Kirk Hudson MD Last Vital Signs Date Time Temp Pulse Resp B/P (MAP) Pulse Ox O2 Delivery O2 Flow Rate FiO2 05/08/19 19:05 98.4 84 18 137/83 (101) Disposition: ADMITTED INPATIENT Condition: Serious Referrals: Konrad Soares MD (PCP) Evaluation Current Stage of Sepsis: Sepsis Focused Exam Allergies: Coded Allergies: PNEUMOCOCCAL VACCINE (Unverified Allergy, Unknown, 10/07/18) Date Exam Occurred: May 08, 2019 Time Exam Occurred: 22:20 Laboratory Studies Laboratory Tests Test 05/08/19 20:00 05/08/19 21:15 White Blood Count 14.4 K/UL (4.8-10.8) H Red Blood Count 4.91 M/UL (4.70-6.10) Hemoglobin 15.8 G/DL (14.2-18.0) Hematocrit 44.9 % (42.0-52.0) Mean Corpuscular Volume 91 FL (80-99) Mean Corpuscular Hemoglobin 32.2 PG (27.0-31.0) H Mean Corpuscular Hemoglobin Concent 35.2 G/DL (32.0-36.0) Red Cell Distribution Width 12.3 % (11.6-14.8) Platelet Count 302 K/UL (150-450) Mean Platelet Volume 6.0 FL (6.5-10.1) L Neutrophils (%) (Auto) 70.8 % (45.0-75.0) Lymphocytes (%) (Auto) 18.0 % (20.0-45.0) L Monocytes (%) (Auto) 9.3 % (1.0-10.0) Eosinophils (%) (Auto) 0.6 % (0.0-3.0) Basophils (%) (Auto) 1.3 % (0.0-2.0) Prothrombin Time 10.0 SEC (9.30-11.50) Prothromb Time International Ratio 0.9 (0.9-1.1) Activated Partial Thromboplast Time 33 SEC (23-33) Sodium Level 144 MMOL/L (136-145) Potassium Level 4.5 MMOL/L (3.5-5.1) Chloride Level 105 MMOL/L (98-107) Carbon Dioxide Level 32 MMOL/L (21-32) Anion Gap 7 mmol/L (5-15) Blood Urea Nitrogen 13 mg/dL (7-18) Creatinine 1.0 MG/DL (0.55-1.30) Estimat Glomerular Filtration Rate mL/min (>60) Glucose Level 113 MG/DL (74-106) H Lactic Acid Level 2.40 mmol/L (0.4-2.0) H Calcium Level 9.8 MG/DL (8.5-10.1) Phosphorus Level 3.9 MG/DL (2.5-4.9) Magnesium Level 2.2 MG/DL (1.8-2.4) Total Bilirubin 0.5 MG/DL (0.2-1.0) Aspartate Amino Transf (AST/SGOT) 49 U/L (15-37) H Alanine Aminotransferase (ALT/SGPT) 55 U/L (12-78) Alkaline Phosphatase 266 U/L (46-116) H Total Creatine Kinase 93 U/L (26-308) Creatine Kinase MB 0.7 NG/ML (0.0-3.6) Creatine Kinase MB Relative Index 0.7 Troponin I 0.000 ng/mL (0.000-0.056) Pro-B-Type Natriuretic Peptide 22 pg/mL (0-125) Total Protein 9.0 G/DL (6.4-8.2) H Albumin 3.6 G/DL (3.4-5.0) Globulin 5.4 g/dL Albumin/Globulin Ratio 0.7 (1.0-2.7) L Lipase 112 U/L (73-393) Arterial Blood pH Pending Arterial Blood Partial Pressure CO2 Pending Arterial Blood Partial Pressure O2 Pending Arterial Blood HCO3 Pending Arterial Blood Oxygen Saturation Pending Arterial Blood Base Excess Pending Daryl Test Pending Vital Signs Last 24 Hour Vital Signs Date Time Temp Pulse Resp B/P (MAP) Pulse Ox O2 Delivery O2 Flow Rate FiO2 05/08/19 19:05 98.4 84 18 137/83 (101) Respiratory Exam: Distant Breath Sounds Cardiovascular Exam: S1, S2, Tachycardia Capillary Refill: Less Than 2 Seconds Peripheral Pulse: Strong Pulse Location: Radial Skin Exam: Normal Kirk Newberry MD May 08, 2019 21:05
[2019-05-08 21:08] LABS: ALANINE AMINOTRANSFERASE 55 U/L (12-78); ALBUMIN 3.6 G/DL (3.4-5.0); ALBUMIN/GLOBULIN RATIO 0.7 (1.0-2.7); ALKALINE PHOSPHATASE 266 U/L (46-116); ASPARTATE AMINO TRANSFERASE 49 U/L (15-37); BILIRUBIN,TOTAL 0.5 MG/DL (0.2-1.0); CKMB 0.7 NG/ML (0.0-3.6); CREATINE KINASE 93 U/L (26-308); PHOSPHORUS 3.9 MG/DL (2.5-4.9)
[2019-05-08 22:20] VITALS: BP 124/69
[2019-05-09] VITALS: BP 130/81
[2019-05-09 04:00] VITALS: BP 127/78
[2019-05-09 06:21] LABS: BASOPHILS % (AUTO) 1.3 % (0.0-2.0); HEMATOCRIT 42.6 % (42.0-52.0); HEMOGLOBIN 14.2 G/DL (14.2-18.0); LYMPHOCYTES % (AUTO) 24.8 % (20.0-45.0); MEAN CORPUSCULAR VOLUME 95 FL (80-99); MONOCYTES % (AUTO) 10.3 % (1.0-10.0); NEUTROPHILS % (AUTO) 62.6 % (45.0-75.0); PLATELET COUNT 328 K/UL (150-450); RED BLOOD COUNT 4.47 M/UL (4.70-6.10); RED CELL DISTRIBUTION WIDTH 13.4 % (11.6-14.8); WHITE BLOOD COUNT 12.7 K/UL (4.8-10.8)
[2019-05-09 06:36] LABS: ALANINE AMINOTRANSFERASE 46 U/L (12-78); ALBUMIN 3.2 G/DL (3.4-5.0); ALBUMIN/GLOBULIN RATIO 0.7 (1.0-2.7); ALKALINE PHOSPHATASE 242 U/L (46-116); ANION GAP 4 mmol/L (5-15); ASPARTATE AMINO TRANSFERASE 40 U/L (15-37); BILIRUBIN,TOTAL 0.6 MG/DL (0.2-1.0); BLOOD UREA NITROGEN 10 mg/dL (7-18); CALCIUM 8.8 MG/DL (8.5-10.1); CARBON DIOXIDE 32 MMOL/L (21-32); CHLORIDE 107 MMOL/L (98-107); CREATININE 0.8 MG/DL (0.55-1.30); POTASSIUM 3.9 MMOL/L (3.5-5.1); SODIUM 143 MMOL/L (136-145)
[2019-05-09 08:00] VITALS: BP 121/61
--- NOTE | 2019-05-09 09:40 | Pulmonology Progress Note ---
Assessment/Plan Assessment/Plan Pulmonary Consultation HPI Patient is a 69 year [facility] with history of Chronic Obstructive Pulmonary Disease, Chronic Granulomatous Disease, Hypertension, Renal Myolipoma, history of seizures, dementia, encephalopathy, Diverticulosis, noncommunicative, admitted with respiratory distress, patient found to be hypoxic, congested, and more altered. No other history available. Allergies: PNEUMOCOCCAL VACCINE Past Medical History: Chronic Obstructive Pulmonary Disease, Chronic Granulomatous Disease, Hypertension, Diverticulosis, Renal Myolipoma, history of Seizures, history of Dementia, encephalopathy All Other Systems: limited - Not communicative Physical Exam Vital Signs Noted Date Time Temp Pulse Resp B/P (MAP) Pulse Ox O2 Delivery O2 Flow Rate FiO2 05/08/19 19:05 98.4 84 18 137/83 (101) General Appearance: moderate distress, thin, Chronically Ill appearing Head: normocephalic, atraumatic Eyes: bilateral eye PERRL, bilateral eye EOMI ENT: uvula midline, dry mucus membranes Neck: supple, thyroid normal, supple/symm/no masses Respiratory: accessory muscle use, rales, bilateral rhonchi Cardiovascular: normal peripheral pulses, HS1, HS2, RRR, no edema, no gallop, no murmur, tachycardia Gastrointestinal: non tender, soft, no guarding, no rebound Musculoskeletal: normal inspection Neurologic: awake, chronically altered Skin: no rash, warm/dry Impression: Chronic obstructive pulmonary disease Healthcare-associated pneumonia) Dyspnea, Hypoxia Dehydration Chronic Granulomatous Disease Hypertension Diverticulosis Renal Myolipoma History of Seizures History of Dementia Chronic Encephalopathy ER Course - IV Antibiotics - HHN - O2 PRN - PTAMedications - Aspiration precautions - PPX - IVF - Monitor labs Laboratory Tests Noted Test 05/08/19 20:00 05/08/19 21:15 White Blood Count 14.4 K/UL (4.8-10.8) H Red Blood Count 4.91 M/UL (4.70-6.10) Hemoglobin 15.8 G/DL (14.2-18.0) Hematocrit 44.9 % (42.0-52.0) Mean Corpuscular Volume 91 FL (80-99) Mean Corpuscular Hemoglobin 32.2 PG (27.0-31.0) H Mean Corpuscular Hemoglobin Concent 35.2 G/DL (32.0-36.0) Red Cell Distribution Width 12.3 % (11.6-14.8) Platelet Count 302 K/UL (150-450) Mean Platelet Volume 6.0 FL (6.5-10.1) L Neutrophils (%) (Auto) 70.8 % (45.0-75.0) Lymphocytes (%) (Auto) 18.0 % (20.0-45.0) L Monocytes (%) (Auto) 9.3 % (1.0-10.0) Eosinophils (%) (Auto) 0.6 % (0.0-3.0) Basophils (%) (Auto) 1.3 % (0.0-2.0) Prothrombin Time 10.0 SEC (9.30-11.50) Prothrombin Time INR 0.9 (0.9-1.1) PTT 33 SEC (23-33) Sodium Level 144 MMOL/L (136-145) Potassium Level 4.5 MMOL/L (3.5-5.1) Chloride Level 105 MMOL/L (98-107) Carbon Dioxide Level 32 MMOL/L (21-32) Anion Gap 7 mmol/L (5-15) Blood Urea Nitrogen 13 mg/dL (7-18) Creatinine 1.0 MG/DL (0.55-1.30) Estimate Glomerular Filtration Rate mL/min (>60) Glucose Level 113 MG/DL (74-106) H Lactic Acid Level 2.40 mmol/L (0.4-2.0) H Calcium Level 9.8 MG/DL (8.5-10.1) Phosphorus Level 3.9 MG/DL (2.5-4.9) Magnesium Level 2.2 MG/DL (1.8-2.4) Total Bilirubin 0.5 MG/DL (0.2-1.0) Aspartate Amino Transferase (AST) 49 U/L (15-37) H Alanine Aminotransferase (ALT) 55 U/L (12-78) Alkaline Phosphatase 266 U/L (46-116) H Total Creatine Kinase 93 U/L (26-308) Creatine Kinase MB 0.7 NG/ML (0.0-3.6) Creatine Kinase MB Relative Index 0.7 Troponin I 0.000 ng/mL (0.000-0.056) Pro-B-Type Natriuretic Peptide 22 pg/mL (0-125) Total Protein 9.0 G/DL (6.4-8.2) H Albumin 3.6 G/DL (3.4-5.0) Globulin 5.4 g/dL Albumin/Globulin Ratio 0.7 (1.0-2.7) L Lipase 112 U/L (73-393) Arterial Blood pH Pending Arterial Blood Partial Pressure CO2 Pending Arterial Blood Partial Pressure O2 Pending Arterial Blood HCO3 Pending Arterial Blood Oxygen Saturation Pending Arterial Blood Base Excess Pending Daryl Test Pending EKG: Rate: 102 Rhythm: other - Sinus tachycardia Chest X-Ray: Right lower lobe consolidation Subjective ROS Limited/Unobtainable: No Allergies: Coded Allergies: PNEUMOCOCCAL VACCINE (Unverified Allergy, Unknown, 10/07/18) Objective Last 24 Hour Vital Signs Date Time Temp Pulse Resp B/P (MAP) Pulse Ox O2 Delivery O2 Flow Rate FiO2 05/09/19 08:00 Nasal Cannula 2.0 05/09/19 08:00 97.5 74 18 121/61 (81) 95 05/09/19 07:27 68 05/09/19 04:00 98.9 95 24 127/78 (94) 99 05/09/19 04:00 Nasal Cannula 3.0 05/09/19 03:37 78 05/09/19 00:00 Nasal Cannula 2.0 05/09/19 00:00 99.3 102 20 130/81 (97) 96 05/08/19 23:39 95 05/08/19 23:16 97 Nasal Cannula 2.0 28 05/08/19 22:51 Nasal Cannula 2.0 05/08/19 22:42 100 05/08/19 22:20 98.4 113 18 137/83 93 Nasal Cannula 2.0 05/08/19 22:20 98.4 100 22 124/69 (87) 97 05/08/19 19:06 84 18 05/08/19 19:06 98.4 113 18 137/83 93 Nasal Cannula 2.0 05/08/19 19:05 98.4 84 18 137/83 (101) Microbiology Date/Time Source Procedure Growth Status 05/09/19 00:07 Nasal Nares - Final Complete 05/09/19 00:07 Nasal Nares - Final Complete Laboratory Tests 05/08/19 20:00: White Blood Count 14.4H, Red Blood Count 4.91, Hemoglobin 15.8, Hematocrit 44.9 , Mean Corpuscular Volume 91, Mean Corpuscular Hemoglobin 32.2H, Mean Corpuscular Hemoglobin Concent 35.2, Red Cell Distribution Width 12.3, Platelet Count 302, Mean Platelet Volume 6.0L, Neutrophils (%) (Auto) 70.8, Lymphocytes ( %) (Auto) 18.0L, Monocytes (%) (Auto) 9.3, Eosinophils (%) (Auto) 0.6, Basophils (%) (Auto) 1.3, Prothrombin Time 10.0, Prothromb Time International Ratio 0.9, Activated Partial Thromboplast Time 33, Sodium Level 144, Potassium Level 4.5, Chloride Level 105, Carbon Dioxide Level 32, Anion Gap 7, Blood Urea Nitrogen 13, Creatinine 1.0, Estimat Glomerular Filtration Rate , Glucose Level 113H, Lactic Acid Level 2.40H, Calcium Level 9.8, Phosphorus Level 3.9, Magnesium Level 2.2, Total Bilirubin 0.5, Aspartate Amino Transf (AST/SGOT) 49H , Alanine Aminotransferase (ALT/SGPT) 55, Alkaline Phosphatase 266H, Total Creatine Kinase 93, Creatine Kinase MB 0.7, Creatine Kinase MB Relative Index 0.7, Troponin I 0.000, Pro-B-Type Natriuretic Peptide 22, Total Protein 9.0H, Albumin 3.6, Globulin 5.4, Albumin/Globulin Ratio 0.7L, Lipase 112 05/08/19 21:15: Arterial Blood pH 7.426, Arterial Blood Partial Pressure CO2 43.0, Arterial Blood Partial Pressure O2 83.8, Arterial Blood HCO3 27.6H, Arterial Blood Oxygen Saturation 96.4, Arterial Blood Base Excess 2.9H, Daryl Test Positive 05/08/19 21:47: Lactic Acid Level 1.30 05/09/19 03:00: Urine Color [Pending], Urine Appearance [Pending], Urine pH [Pending], Urine Specific [place] [Pending], Urine Protein [Pending], Urine Glucose (UA) [Pending ], Urine Ketones [Pending], Urine Blood [Pending], Urine Nitrite [Pending], Urine Bilirubin [Pending], Urine Urobilinogen [Pending], Urine Leukocyte Esterase [Pending] 05/09/19 05:25: White Blood Count 12.7H, Red Blood Count 4.47L, Hemoglobin 14.2, Hematocrit 42.6 , Mean Corpuscular Volume 95, Mean Corpuscular Hemoglobin 31.9H, Mean Corpuscular Hemoglobin Concent 33.4, Red Cell Distribution Width 13.4, Platelet Count 328, Mean Platelet Volume 5.6L, Neutrophils (%) (Auto) 62.6, Lymphocytes ( %) (Auto) 24.8, Monocytes (%) (Auto) 10.3H, Eosinophils (%) (Auto) 1.0, Basophils (%) (Auto) 1.3, Sodium Level 143, Potassium Level 3.9, Chloride Level 107, Carbon Dioxide Level 32, Anion Gap 4L, Blood Urea Nitrogen 10, Creatinine 0.8, Estimat Glomerular Filtration Rate , Glucose Level 103, Calcium Level 8.8, Total Bilirubin 0.6, Aspartate Amino Transf (AST/SGOT) 40H, Alanine Aminotransferase (ALT/SGPT) 46, Alkaline Phosphatase 242H, Total Protein 8.1, Albumin 3.2L, Globulin 4.9, Albumin/Globulin Ratio 0.7L Current Medications Medications (Trade) Dose Ordered Sig/Nidhi Route PRN Reason Start Time Stop Time Status Last Admin Dose Admin Acetaminophen (Tylenol) 650 mg Q4H PRN ORAL Mild Pain/Temp > 100.5 05/08/19 23:30 06/07/19 23:29 Porfirio Daniel MD May 09, 2019 09:40
[2019-05-09] MEDS ORDERED: D5 1/2NS 1,000 ML IV ONE (10:00)
[2019-05-09] MEDS: Albuterol/Ipratropium 3ml neb HHN SCH ×4 (10:39→22:55)
[2019-05-09] MEDS: Vancomycin 1gm/D5W 275ml IVPB SCH ×4 (10:57→23:18)
[2019-05-09 12:00] VITALS: BP 127/72
[2019-05-09] MEDS: Piperacillin/Tazobactam 3.375 GM in NS 110 ML IVPB SCH ×2 (12:26→21:12)
--- NOTE | 2019-05-09 13:44 | Cardiology Report ---
APPROVED REPORT EKG Measurement Heart [id number] [id number] Sinus tachycardia Junctional ST depression, probably normal Borderline ECG
--- NOTE | 2019-05-09 14:44 | Diagnostic Imaging Report ---
Indication: Cough Technique: One view of the chest Comparison: 01/06/2016 Findings: Less optimal inspiration. This results in crowding of the bronchovascular markings and perihilar atelectatic changes. No definite acute infiltrates. No effusions. The heart size is normal Impression: Hypoventilatory exam. No definite acute process
--- NOTE | 2019-05-09 15:45 | Consultation ---
DATE OF CONSULTATION: 05/09/2019 INFECTIOUS DISEASE CONSULTATION CONSULTING PHYSICIAN: Curtis Farah M.D. PRIMARY ATTENDING PHYSICIAN: Konrad Soares M.D. REASON FOR CONSULTATION: COPD, pneumonia. HISTORY OF PRESENT ILLNESS: The patient is a 69-year-old male who is a [facility] resident, admitted last night with respiratory distress, hypoxemia, had leukocytosis of 14.4 at the time of admission, tachycardia with heart rate of 113. The patient is not a source of history. PAST MEDICAL HISTORY: Significant for COPD, hypertension, diverticulosis, dementia, seizure disorder, . ALLERGIES: Allergic to pneumococcal vaccine. MEDICATIONS: Amlodipine, heparin, Aricept, Keppra, Zosyn, albuterol, ipratropium inhaler, vancomycin. SOCIAL HISTORY: intermediate resident. Single. No other history was obtainable. REVIEW OF SYSTEMS: Noncommunicative. PHYSICAL EXAMINATION: VITAL SIGNS: Temperature 97.5, pulse 74, blood pressure is 121/61. GENERAL: He seems to be well developed, in no distress. HEAD AND NECK: Getting oxygen by nasal cannula. HEART: Normal rate. LUNGS: Clear. ABDOMEN: Soft, nontender. EXTREMITY: Has no edema. LABORATORY DATA: WBC 12.7, hemoglobin 14.2, hematocrit 42.6, and platelets 328,000. Sodium 143, potassium 3.9, chloride 107, bicarb 32, BUN 10, creatinine 0.8. AST 40, ALT 46, alkaline phosphatase is 242. Lactic acid was elevated 2.40, come back to normal. UA is pending. Blood gas showed pCO2 of 43, pO2 of 83, O2 saturation 96.4%. Rapid flu test was negative. Chest x-ray official report is pending, seems to have hiatal hernia. IMPRESSION: Sepsis with leukocytosis, tachycardia, and lactic acidosis. Seems to have COPD exacerbation, questionable early pneumonia, has hypoxemia, hypertension, dementia. RECOMMENDATION: We will continue with current antibiotics, vancomycin, and Zosyn. We will follow up the cultures and narrow antibiotics soon. At the end of my exam, I thank Dr. Soares for involving me in the care of this patient. Curtis Farah M.D. DR: SAPNA JOB#: [id number] CC:
[2019-05-09 16:00] VITALS: BP 122/87
[2019-05-09 20:00] VITALS: BP 151/70
[2019-05-09] MEDS ORDERED: Heparin 5000 units/ml inj SUBQ SCH (21:00)
[2019-05-09] MEDS ORDERED: Donepezil 5mg Tab ORAL SCH (21:00)
--- NOTE | 2019-05-09 22:17 | Consultation ---
History of Present Illness General Date patient seen: May 09, 2019 Chief Complaint: Upper Respiratory Illness Present Illness Allergies: Coded Allergies: PNEUMOCOCCAL VACCINE (Unverified Allergy, Unknown, 10/07/18) Medication History Scheduled Amlodipine Besylate* (Amlodipine Besylate*), 10 MG ORAL DAILY, (Reported) Benztropine Mesylate (Cogentin), 0.5 MG PO BID, (Reported) Donepezil Hcl* (Donepezil Hcl*), 5 MG ORAL HS, (Reported) Levetiracetam (Keppra), 1,500 MG PO BID, (Reported) Magnesium Hydroxide (Milk of Magnesia), 30 ML ORAL DAILY, (Reported) Mirtazapine (Remeron), 7.5 MG ORAL BEDTIME, (Reported) Quetiapine Fumarate* (Seroquel*), 100 MG ORAL TWICE A DAY, (Reported) Patient History Limited by: medical condition History Provided By: Medical Record Healthcare decision maker Resuscitation status Advanced Directive on File Past Medical/Surgical History Past Medical/Surgical History: (1) Lactic acid acidosis (2) Severe sepsis (3) Leukocytosis (4) Schizophrenia (5) Syncope (6) Head injury (7) Hypercalcemia (8) Lung mass (9) UTI (urinary tract infection) (10) Protein-calorie malnutrition, severe (11) COPD (chronic obstructive pulmonary disease) (12) HCAP (healthcare-associated pneumonia) (13) Dehydration (14) Hypoxia (15) Dyspnea (16) Congestion secondary to upper respiratory illness Review of Systems ROS Narrative unable to obtain given medical condition Physical Exam General Appearance: no apparent distress Lines, tubes and drains: other HEENT: mucous membranes moist Neck: normal inspection Respiratory/Chest: no respiratory distress, no accessory muscle use Cardiovascular/Chest: regular rhythm Abdomen: soft, no organomegaly, no mass, feeding tube, other Extremities: non-tender Skin Exam: warm/dry Last 24 Hour Vital Signs Date Time Temp Pulse Resp B/P (MAP) Pulse Ox O2 Delivery O2 Flow Rate FiO2 05/09/19 19:14 75 20 100 Nasal Cannula 2.0 28 78 20 98 05/09/19 19:13 98 Nasal Cannula 2.0 28 05/09/19 19:03 77 05/09/19 16:00 97.8 76 18 122/87 (99) 99 12/6/19 16:00 Nasal Cannula 2.0 05/09/19 16:00 72 05/09/19 15:25 76 20 100 Nasal Cannula 2.0 28 78 20 99 05/09/19 12:00 98.4 79 18 127/72 (90) 100 05/09/19 12:00 Nasal Cannula 2.0 05/09/19 11:22 72 05/09/19 10:50 74 17 100 Nasal Cannula 2.0 28 79 18 100 05/09/19 10:39 79 18 100 Nasal Cannula 2.0 28 05/09/19 10:39 100 Nasal Cannula 2.0 28 05/09/19 08:00 Nasal Cannula 2.0 05/09/19 08:00 97.5 74 18 121/61 (81) 95 05/09/19 07:27 68 05/09/19 04:00 98.9 95 24 127/78 (94) 99 05/09/19 04:00 Nasal Cannula 3.0 05/09/19 03:37 78 05/09/19 00:00 Nasal Cannula 2.0 05/09/19 00:00 99.3 102 20 130/81 (97) 96 05/08/19 23:39 95 05/08/19 23:16 97 Nasal Cannula 2.0 28 05/08/19 22:51 Nasal Cannula 2.0 05/08/19 22:42 100 05/08/19 22:20 98.4 113 18 137/83 93 Nasal Cannula 2.0 05/08/19 22:20 98.4 100 22 124/69 (87) 97 Intake and Output 05/08/19 05/09/19 18:59 06:59 # Voids 3 # Bowel Movements 4 Laboratory Tests Test 05/09/19 03:00 05/09/19 05:25 Urine Color Pending Urine Appearance Pending Urine pH Pending Urine Specific [place] Pending Urine Protein Pending Urine Glucose (UA) Pending Urine Ketones Pending Urine Blood Pending Urine Nitrite Pending Urine Bilirubin Pending Urine Urobilinogen Pending Urine Leukocyte Esterase Pending White Blood Count 12.7 K/UL (4.8-10.8) H Red Blood Count 4.47 M/UL (4.70-6.10) L Hemoglobin 14.2 G/DL (14.2-18.0) Hematocrit 42.6 % (42.0-52.0) Mean Corpuscular Volume 95 FL (80-99) Mean Corpuscular Hemoglobin 31.9 PG (27.0-31.0) H Mean Corpuscular Hemoglobin Concent 33.4 G/DL (32.0-36.0) Red Cell Distribution Width 13.4 % (11.6-14.8) Platelet Count 328 K/UL (150-450) Mean Platelet Volume 5.6 FL (6.5-10.1) L Neutrophils (%) (Auto) 62.6 % (45.0-75.0) Lymphocytes (%) (Auto) 24.8 % (20.0-45.0) Monocytes (%) (Auto) 10.3 % (1.0-10.0) H Eosinophils (%) (Auto) 1.0 % (0.0-3.0) Basophils (%) (Auto) 1.3 % (0.0-2.0) Sodium Level 143 MMOL/L (136-145) Potassium Level 3.9 MMOL/L (3.5-5.1) Chloride Level 107 MMOL/L (98-107) Carbon Dioxide Level 32 MMOL/L (21-32) Anion Gap 4 mmol/L (5-15) L Blood Urea Nitrogen 10 mg/dL (7-18) Creatinine 0.8 MG/DL (0.55-1.30) Estimat Glomerular Filtration Rate mL/min (>60) Glucose Level 103 MG/DL (74-106) Calcium Level 8.8 MG/DL (8.5-10.1) Total Bilirubin 0.6 MG/DL (0.2-1.0) Aspartate Amino Transf (AST/SGOT) 40 U/L (15-37) H Alanine Aminotransferase (ALT/SGPT) 46 U/L (12-78) Alkaline Phosphatase 242 U/L (46-116) H Total Protein 8.1 G/DL (6.4-8.2) Albumin 3.2 G/DL (3.4-5.0) L Globulin 4.9 g/dL Albumin/Globulin Ratio 0.7 (1.0-2.7) L Microbiology Date/Time Source Procedure Growth Status 05/09/19 00:07 Nasal Nares - Final Complete 05/09/19 00:07 Nasal Nares - Final Complete Height (Feet): 5 Height (Inches): 9.00 Weight (Pounds): 175 Medications Current Medications Medications (Trade) Dose Ordered Sig/Nidhi Route PRN Reason Start Time Stop Time Status Last Admin Dose Admin Acetaminophen (Tylenol) 650 mg Q4H PRN ORAL Mild Pain/Temp > 100.5 05/08/19 23:30 06/07/19 23:29 Albuterol/ Ipratropium (Albuterol/ Ipratropium) 3 ml Q4HRT HHN 05/09/19 11:00 05/14/19 10:59 05/09/19 19:13 Amlodipine Besylate (Norvasc) 5 mg DAILY ORAL 05/10/19 09:00 06/09/19 08:59 Dextrose/Sodium Chloride 1,000 ml @ 60 mls/hr [id number] ONCE IV 05/09/19 10:00 05/10/19 02:39 05/09/19 10:28 Donepezil HCl (Aricept) 5 mg QHS ORAL 05/09/19 21:00 06/08/19 20:59 05/09/19 21:12 Heparin Sodium (Porcine) (Heparin 5000 units/ml) 5,000 units EVERY 12 HOURS SUBQ 05/09/19 21:00 06/08/19 20:59 05/09/19 21:13 Levetiracetam (Keppra) 1,500 mg Q12HR ORAL 05/09/19 21:00 06/08/19 20:59 05/09/19 21:12 Piperacillin Sod/ Tazobactam Sod 3.375 gm/Sodium Chloride 110 ml @ 27.5 mls/hr Q8HR IVPB 05/09/19 12:00 05/16/19 11:59 05/09/19 21:12 Vancomycin HCl (Vanco rx to dose) 1 ea DAILY PRN MISC Per rx protocol 05/09/19 10:00 06/08/19 09:59 Vancomycin HCl 1 gm/Dextrose 275 ml @ 183.708 mls/hr Q12HR@1100,2300 IVPB 05/09/19 11:00 05/14/19 10:59 05/09/19 10:57 Assessment/Plan Problem List: (1) Decubitus skin ulcer Assessment & Plan: Pt presented on admission with resolving pressure injuries sacrum R heel. Resolving full thickness sacral pressure injury. Beefy red granulation with small amt Biofilm at base of wound (L)1cm x (W)1.5cm x(D)0.2cm ,with surrounding pink epithelial(L)3.5cm x (W)3cm.No odor or exudate noted. Loose dry eschar noted to R heel (L)0.8cm x (W)3.5cm. Easily removed with friction. R heel is boggy with non-blanching erythema. Historical surgical scar noted to R hip. L heel boggy with non-blanching erythema. No other skin concerns noted. Pt requires extensive asst with bed mobility and is at high risks for skin breakdown. Both hips and both heels padded with Optifoam drsg to minimize friction on skin. Pt positioned on side with pillow and both heels floated with pillows off bed. Tx.Plan: Apply Moisture Barrier Paste to Sacrum. Cover with Optifoam drsg. Change every 3 days and prn. Apply Cavilon Skin Barrier to Both heels. Cover each heel with Optifoam drsg. Change every 7 days and prn. Reposition at least every 2 hours or as tolerated. Off-load heels with pillow. ICD Codes: L89.90 - Pressure ulcer of unspecified site, unspecified stage SNOMED: 151745976 (2) Leukocytosis ICD Codes: D72.829 - Elevated white blood cell count, unspecified SNOMED: 950172303, 517225357 (3) Severe sepsis Assessment & Plan: leukocytosis lactic acidosis abnormal labs cxr noted exam as above on IV abx trend labs cont with current care thank you ICD Codes: A41.9 - Sepsis, unspecified organism; R65.20 - Severe sepsis without septic shock SNOMED: 82210741 (4) Protein-calorie malnutrition, severe Assessment & Plan: DAILY ESTIMATED NEEDS: Needs based on Pulmonary, wounds; 74.5kg 25-35 kcals/kg 1863- 2608 total kcals 1.25-1.5 g protein/kg 93- 112 g total protein 25-30 mL/kg 5908-5810 total fluid mLs NUTRITION DIAGNOSIS: 1. Increased pro needs r/t wound healing AEB pt adm w/ r heel unstageable Sacral partial thickness wounds per EMR, WC eval pending. 2. 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 CURRENT DIET:NPO PO DIET RECOMMENDATIONS: Regular, texture per MERCHANDISING COORDINATOR ----> WHEN APPROPRIATE ADDITIONAL RECOMMENDATIONS: * F/up w/ WC eval W/ diet addd Hai in 8oz H2O BID + Vit C 250mmg BID + MVI w/ min qd * F/up w/ MERCHANDISING COORDINATOR for appropriate texture -> w/ need for supplements, rec Ensure Enlive. * Obtain calibrated bed scale wts * Consult RD fo TF recs if needed, if part of POC ICD Codes: E43 - Unspecified severe protein-calorie malnutrition SNOMED: 330157802 (5) Lung mass Assessment & Plan: 2 cm pleural-based masslike opacity containing multiple nodular calcifications andadjacent parenchymal linear density persists in the anterolateral periphery of thelateral segment right middle lobe, unchanged. Adjacent small nodular parenchymaldensities persist, unchanged. Small irregular pleural-based linear densities persist in the dependent portions of both lung bases, unchanged. No new pulmonary parenchymal abnormality demonstrated. No pleural disease is evident. Nodularcalcification in right hilum unchanged. Clustered calcified nodules in the subcarinal region of mediastinum unchanged. No new mediastinal or hilar enlarged lymph nodes. Heart remains normal in size. No pericardial abnormality. Centralmediastinal vasculature remains unremarkable in appearance. noted prior in 2017. no path available cxr noted may repeat CT chest once improving ICD Codes: R91.8 - Other nonspecific abnormal finding of lung field SNOMED: 598400735 (6) Lactic acid acidosis ICD Codes: E87.2 - Acidosis SNOMED: 63516073 Gabino Little May 09, 2019 22:17
[2019-05-10] VITALS: BP 112/63
[2019-05-10] MEDS: Albuterol/Ipratropium 3ml neb HHN SCH ×6 (03:13→23:30)
[2019-05-10 03:15] VITALS: BP 123/76
--- NOTE | 2019-05-10 03:15 | History and Physical Report ---
DATE OF ADMISSION: 05/08/2019 HISTORY OF PRESENT ILLNESS: The patient is admitted for respiratory distress, shortness of breath, borderline hypoxia at the halfway, and borderline BP at the halfway, rule out sepsis, rule out pneumonia. The patient again is a poor historian, cannot give any reliable history. The patient is admitted for pneumonia. Again, cannot get any history from the patient. The patient is a poor historian. The blood pressure was low and borderline saturation at the halfway. PAST MEDICAL HISTORY: Advanced dementia, hypertension, seizure disorder, history of failure to thrive, history of depression, history of psychosis, history of COPD, protein-calorie malnutrition, and history of head injury. PAST SURGICAL HISTORY: The patient has a surgical scar above the umbilical cord. ALLERGIES: Pneumococcal vaccine. MEDICATIONS: Keppra, benazepril, Cogentin, mirtazapine, and Seroquel. FAMILY HISTORY: Unable to obtain. SOCIAL HISTORY: Unable to obtain. REVIEW OF SYSTEMS: Unable to obtain. PHYSICAL EXAMINATION: VITAL SIGNS: Temperature is 98.4, pulse is 79, and blood pressure is 127/72. HEENT: PERRLA. NECK: Supple. No lymphadenopathy. CHEST: Clear to auscultation. CARDIOVASCULAR: Regular rate and rhythm. ABDOMEN: Soft. Positive bowel sounds. Moves all extremities. Does not follow neurological exam. Reflexes equal on both sides. LABORATORY DATA: WBC of 14.4, hemoglobin of 15.8, and platelets of 302,000. Sodium 144, potassium 4.5, BUN of 13, creatinine of 1, and glucose of 113. ASSESSMENT AND PLAN: SOB, borderline hypoxia, low BP at the halfway, pneumonia, and respiratory insufficiency. I have asked Dr. Henry, Dr. Curtis Farah, and Dr. Daniel to see the patient to help with the management of the above-mentioned diagnoses as well as for the abnormal labs and imaging studies . Konrad Soares M.D. DR: PHUC JOB#: [id number] CC:
[2019-05-10] MEDS: Piperacillin/Tazobactam 3.375 GM in NS 110 ML IVPB SCH ×3 (05:08→22:49)
[2019-05-10 06:18] LABS: BASOPHILS % (AUTO) 1.8 % (0.0-2.0); EOSINOPHILS % (AUTO) 2.2 % (0.0-3.0); HEMATOCRIT 44.7 % (42.0-52.0); HEMOGLOBIN 14.5 G/DL (14.2-18.0); LYMPHOCYTES % (AUTO) 24.1 % (20.0-45.0); MEAN CORPUSCULAR VOLUME 96 FL (80-99); MONOCYTES % (AUTO) 11.2 % (1.0-10.0); NEUTROPHILS % (AUTO) 60.7 % (45.0-75.0); PLATELET COUNT 314 K/UL (150-450); RED BLOOD COUNT 4.68 M/UL (4.70-6.10); RED CELL DISTRIBUTION WIDTH 13.6 % (11.6-14.8)
[2019-05-10 06:31] LABS: ANION GAP 1 mmol/L (5-15); BLOOD UREA NITROGEN 8 mg/dL (7-18); CALCIUM 8.9 MG/DL (8.5-10.1); CARBON DIOXIDE 36 MMOL/L (21-32); CHLORIDE 104 MMOL/L (98-107); CREATININE 0.9 MG/DL (0.55-1.30); POTASSIUM 3.1 MMOL/L (3.5-5.1); SODIUM 141 MMOL/L (136-145)
[2019-05-10 08:00] VITALS: BP 128/79
[2019-05-10] MEDS ORDERED: Ascorbic Acid 500mg tab ORAL SCH (09:00)
[2019-05-10] MEDS: Ascorbic Acid 500mg tab ORAL SCH ×2 (09:48→17:07)
[2019-05-10] MEDS: Heparin 5000 units/ml inj SUBQ SCH ×2 (09:55→21:14)
[2019-05-10] MEDS: Vancomycin 1 GM in D5W 275 ML IVPB SCH ×2 (11:00→23:56)
[2019-05-10 12:00] VITALS: BP 130/82
--- NOTE | 2019-05-10 12:09 | Surgery Progress Note ---
Surgery Progress Note Subjective Additional Comments Patient seen and examined bedside. No acute events. Resting comfortable. Leukocytosis resolved. Labs improved. Overall improving. No nausea vomiting fever chills. Tolerating diet Objective Last 24 Hour Vital Signs Date Time Temp Pulse Resp B/P (MAP) Pulse Ox O2 Delivery O2 Flow Rate FiO2 05/10/19 11:28 79 20 100 Nasal Cannula 2.0 28 76 20 100 05/10/19 09:49 77 128/79 05/10/19 09:00 Nasal Cannula 2.0 05/10/19 08:00 98.6 77 20 128/79 (95) 100 05/10/19 07:53 78 20 100 Nasal Cannula 2.0 28 77 20 100 05/10/19 07:53 100 Nasal Cannula 2.0 28 05/10/19 03:15 97.9 74 20 123/76 (92) 99 05/10/19 03:14 86 20 99 Nasal Cannula 2.0 28 84 22 97 05/10/19 00:00 97.3 79 18 112/63 (79) 96 05/10/19 00:00 Nasal Cannula 2.0 05/09/19 23:35 76 05/09/19 22:55 76 20 100 Nasal Cannula 2.0 28 80 20 96 05/09/19 20:00 Nasal Cannula 2.0 05/09/19 20:00 98.1 88 20 151/70 (97) 96 05/09/19 19:14 75 20 100 Nasal Cannula 2.0 28 78 20 98 05/09/19 19:13 98 Nasal Cannula 2.0 28 05/09/19 19:03 77 05/09/19 16:00 97.8 76 18 122/87 (99) 99 05/09/19 16:00 Nasal Cannula 2.0 05/09/19 16:00 72 05/09/19 15:25 76 20 100 Nasal Cannula 2.0 28 78 20 99 I&O Intake and Output 05/09/19 05/10/19 19:00 07:00 Intake Total 727.000 ml 805.000 ml Output Total 400 ml 200 ml Balance 327.000 ml 605.000 ml Intake Oral 120 ml 0 ml IV Total 607.000 ml 805.000 ml Output Urine Total 400 ml 200 ml # Voids 1 # Bowel Movements 2 1 Dressing: other Wound: other Drains: other Cardiovascular: RSR Respiratory: clear Abdomen: soft, flat, non-tender, present bowel sounds Extremities: no tenderness, no cyanosis, other Laboratory Tests Test 05/10/19 05:49 White Blood Count 10.0 K/UL (4.8-10.8) Red Blood Count 4.68 M/UL (4.70-6.10) L Hemoglobin 14.5 G/DL (14.2-18.0) Hematocrit 44.7 % (42.0-52.0) Mean Corpuscular Volume 96 FL (80-99) Mean Corpuscular Hemoglobin 30.9 PG (27.0-31.0) Mean Corpuscular Hemoglobin Concent 32.4 G/DL (32.0-36.0) Red Cell Distribution Width 13.6 % (11.6-14.8) Platelet Count 314 K/UL (150-450) Mean Platelet Volume 5.3 FL (6.5-10.1) L Neutrophils (%) (Auto) 60.7 % (45.0-75.0) Lymphocytes (%) (Auto) 24.1 % (20.0-45.0) Monocytes (%) (Auto) 11.2 % (1.0-10.0) H Eosinophils (%) (Auto) 2.2 % (0.0-3.0) Basophils (%) (Auto) 1.8 % (0.0-2.0) Sodium Level 141 MMOL/L (136-145) Potassium Level 3.1 MMOL/L (3.5-5.1) L Chloride Level 104 MMOL/L (98-107) Carbon Dioxide Level 36 MMOL/L (21-32) H Anion Gap 1 mmol/L (5-15) L Blood Urea Nitrogen 8 mg/dL (7-18) Creatinine 0.9 MG/DL (0.55-1.30) Estimat Glomerular Filtration Rate mL/min (>60) Glucose Level 126 MG/DL (74-106) H Calcium Level 8.9 MG/DL (8.5-10.1) Plan Problems: (1) Decubitus skin ulcer Assessment & Plan: Pt presented on admission with resolving pressure injuries sacrum R heel. Resolving full thickness sacral pressure injury. Beefy red granulation with small amt Biofilm at base of wound (L)1cm x (W)1.5cm x(D)0.2cm ,with surrounding pink epithelial(L)3.5cm x (W)3cm.No odor or exudate noted. Loose dry eschar noted to R heel (L)0.8cm x (W)3.5cm. Easily removed with friction. R heel is boggy with non-blanching erythema. Historical surgical scar noted to R hip. L heel boggy with non-blanching erythema. No other skin concerns noted. Pt requires extensive asst with bed mobility and is at high risks for skin breakdown. Both hips and both heels padded with Optifoam drsg to minimize friction on skin. Pt positioned on side with pillow and both heels floated with pillows off bed. Tx.Plan: Apply Moisture Barrier Paste to Sacrum. Cover with Optifoam drsg. Change every 3 days and prn. Apply Cavilon Skin Barrier to Both heels. Cover each heel with Optifoam drsg. Change every 7 days and prn. Reposition at least every 2 hours or as tolerated. Off-load heels with pillow. (2) Leukocytosis (3) Severe sepsis Assessment & Plan: leukocytosis - resolved lactic acidosis - resolved abnormal labs cxr noted exam as above on IV abx trend labs cont with current care thank you (4) Protein-calorie malnutrition, severe Assessment & Plan: DAILY ESTIMATED NEEDS: Needs based on Pulmonary, wounds; 74.5kg 25-35 kcals/kg 1863- 2608 total kcals 1.25-1.5 g protein/kg 93- 112 g total protein 25-30 mL/kg 0352-8431 total fluid mLs NUTRITION DIAGNOSIS: 1. Increased pro needs r/t wound healing AEB pt adm w/ r heel unstageable Sacral partial thickness wounds per EMR, WC eval pending. 2. 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 CURRENT DIET:NPO PO DIET RECOMMENDATIONS: Regular, texture per PLANNING DIRECTOR ----> WHEN APPROPRIATE ADDITIONAL RECOMMENDATIONS: * F/up w/ WC eval W/ diet addd Hai in 8oz H2O BID + Vit C 250mmg BID + MVI w/ min qd * F/up w/ PLANNING DIRECTOR for appropriate texture -> w/ need for supplements, rec Ensure Enlive. * Obtain calibrated bed scale wts * Consult RD fo TF recs if needed, if part of POC (5) Lung mass Assessment & Plan: 2 cm pleural-based masslike opacity containing multiple nodular calcifications andadjacent parenchymal linear density persists in the anterolateral periphery of thelateral segment right middle lobe, unchanged. Adjacent small nodular parenchymaldensities persist, unchanged. Small irregular pleural-based linear densities persist in the dependent portions of both lung bases, unchanged. No new pulmonary parenchymal abnormality demonstrated. No pleural disease is evident. Nodularcalcification in right hilum unchanged. Clustered calcified nodules in the subcarinal region of mediastinum unchanged. No new mediastinal or hilar enlarged lymph nodes. Heart remains normal in size. No pericardial abnormality. Centralmediastinal vasculature remains unremarkable in appearance. noted prior in 2017. no path available cxr noted may repeat CT chest once improving (6) Lactic acid acidosis Gabino Little May 10, 2019 12:09
[2019-05-10] MEDS ORDERED: D5 1/2NS 1000ml IV ONE (15:46)
[2019-05-10] MEDS ORDERED: NS 275ml ONE (15:46)
[2019-05-10] MEDS ORDERED: Tubing IV Secondary IV ONE (15:46)
[2019-05-10 16:00] VITALS: BP 135/86
--- NOTE | 2019-05-10 17:02 | General Progress Note ---
Assessment/Plan Problem List: (1) Dyspnea ICD Codes: R06.00 - Dyspnea, unspecified SNOMED: 326938516 Qualifiers: Qualified Codes: R06.00 - Dyspnea, unspecified (2) Protein-calorie malnutrition, severe ICD Codes: E43 - Unspecified severe protein-calorie malnutrition SNOMED: 625718794 (3) Decubitus skin ulcer ICD Codes: L89.90 - Pressure ulcer of unspecified site, unspecified stage SNOMED: 815786308 (4) Hypoxia ICD Codes: R09.02 - Hypoxemia SNOMED: 354463600 (5) Dehydration ICD Codes: E86.0 - Dehydration SNOMED: 98194019 Status: progressing Assessment/Plan: pna abx per id afebrile reviewed chart and labs no acute events Subjective ROS Limited/Unobtainable: Yes Allergies: Coded Allergies: PNEUMOCOCCAL VACCINE (Unverified Allergy, Unknown, 10/07/18) Objective Last 24 Hour Vital Signs Date Time Temp Pulse Resp B/P (MAP) Pulse Ox O2 Delivery O2 Flow Rate FiO2 05/10/19 16:00 98.5 85 18 135/86 (102) 100 05/10/19 15:29 77 20 100 Nasal Cannula 2.0 28 81 20 97 05/10/19 12:00 98.7 81 18 130/82 (98) 100 05/10/19 11:28 79 20 100 Nasal Cannula 2.0 28 76 20 100 05/10/19 09:49 77 128/79 05/10/19 09:00 Nasal Cannula 2.0 05/10/19 08:00 98.6 77 20 128/79 (95) 100 05/10/19 07:53 78 20 100 Nasal Cannula 2.0 28 77 20 100 05/10/19 07:53 100 Nasal Cannula 2.0 28 05/10/19 03:15 97.9 74 20 123/76 (92) 99 05/10/19 03:14 86 20 99 Nasal Cannula 2.0 28 84 22 97 05/10/19 00:00 97.3 79 18 112/63 (79) 96 05/10/19 00:00 Nasal Cannula 2.0 05/09/19 23:35 76 05/09/19 22:55 76 20 100 Nasal Cannula 2.0 28 80 20 96 05/09/19 20:00 Nasal Cannula 2.0 05/09/19 20:00 98.1 88 20 151/70 (97) 96 05/09/19 19:14 75 20 100 Nasal Cannula 2.0 28 78 20 98 05/09/19 19:13 98 Nasal Cannula 2.0 28 05/09/19 19:03 77 Intake and Output 05/09/19 05/10/19 19:00 07:00 Intake Total 727.000 ml 805.000 ml Output Total 400 ml 200 ml Balance 327.000 ml 605.000 ml Intake Oral 120 ml 0 ml IV Total 607.000 ml 805.000 ml Output Urine Total 400 ml 200 ml # Voids 1 # Bowel Movements 2 1 Laboratory Tests 05/10/19 05:49: White Blood Count 10.0, Red Blood Count 4.68L, Hemoglobin 14.5, Hematocrit 44.7 , Mean Corpuscular Volume 96, Mean Corpuscular Hemoglobin 30.9, Mean Corpuscular Hemoglobin Concent 32.4, Red Cell Distribution Width 13.6, Platelet Count 314, Mean Platelet Volume 5.3L, Neutrophils (%) (Auto) 60.7, Lymphocytes ( %) (Auto) 24.1, Monocytes (%) (Auto) 11.2H, Eosinophils (%) (Auto) 2.2, Basophils (%) (Auto) 1.8, Sodium Level 141, Potassium Level 3.1L, Chloride Level 104, Carbon Dioxide Level 36H, Anion Gap 1L, Blood Urea Nitrogen 8, Creatinine 0.9, Estimat Glomerular Filtration Rate , Glucose Level 126H, Calcium Level 8.9 Height (Feet): 5 Height (Inches): 9.00 Weight (Pounds): 175 Cardiovascular: normal rate Respiratory/Chest: lungs clear Abdomen: soft Konrad Soares MD May 10, 2019 17:02
--- NOTE | 2019-05-10 17:43 | Pulmonology Progress Note ---
Assessment/Plan Assessment/Plan Pulmonary Consultation HPI Patient is a 69 year old male skilled nursing patient with history of Chronic Obstructive Pulmonary Disease, Chronic Granulomatous Disease, Hypertension, Renal Myolipoma, history of seizures, dementia, encephalopathy, Diverticulosis, noncommunicative, admitted with respiratory distress, patient found to be hypoxic, congested, and more altered. No other history available. Less short of breath, comfortable, passed swallow evaluation Allergies: PNEUMOCOCCAL VACCINE Past Medical History: Chronic Obstructive Pulmonary Disease, Chronic Granulomatous Disease, Hypertension, Diverticulosis, Renal Myolipoma, history of Seizures, history of Dementia, encephalopathy All Other Systems: limited - Not communicative Physical Exam Vital Signs Noted Date Time Temp Pulse Resp B/P (MAP) Pulse Ox O2 Delivery O2 Flow Rate FiO2 05/08/19 19:05 98.4 84 18 137/83 (101) General Appearance: moderate distress, thin, Chronically Ill appearing Head: normocephalic, atraumatic Eyes: bilateral eye PERRL, bilateral eye EOMI ENT: uvula midline, dry mucus membranes Neck: supple, thyroid normal, supple/symm/no masses Respiratory: accessory muscle use, rales, bilateral rhonchi Cardiovascular: normal peripheral pulses, HS1, HS2, RRR, no edema, no gallop, no murmur, tachycardia Gastrointestinal: non tender, soft, no guarding, no rebound Musculoskeletal: normal inspection Neurologic: awake, chronically altered Skin: no rash, warm/dry Impression: Chronic obstructive pulmonary disease Healthcare-associated pneumonia) Dyspnea, Hypoxia Dehydration Chronic Granulomatous Disease Hypertension Diverticulosis Renal Myolipoma History of Seizures History of Dementia Chronic Encephalopathy ER Course - IV Antibiotics - HHN - O2 PRN - PTAMedications - Aspiration precautions - PPX - IVF - Monitor labs Laboratory Tests Noted Test 05/08/19 20:00 05/08/19 21:15 White Blood Count 14.4 K/UL (4.8-10.8) H Red Blood Count 4.91 M/UL (4.70-6.10) Hemoglobin 15.8 G/DL (14.2-18.0) Hematocrit 44.9 % (42.0-52.0) Mean Corpuscular Volume 91 FL (80-99) Mean Corpuscular Hemoglobin 32.2 PG (27.0-31.0) H Mean Corpuscular Hemoglobin Concent 35.2 G/DL (32.0-36.0) Red Cell Distribution Width 12.3 % (11.6-14.8) Platelet Count 302 K/UL (150-450) Mean Platelet Volume 6.0 FL (6.5-10.1) L Neutrophils (%) (Auto) 70.8 % (45.0-75.0) Lymphocytes (%) (Auto) 18.0 % (20.0-45.0) L Monocytes (%) (Auto) 9.3 % (1.0-10.0) Eosinophils (%) (Auto) 0.6 % (0.0-3.0) Basophils (%) (Auto) 1.3 % (0.0-2.0) Prothrombin Time 10.0 SEC (9.30-11.50) Prothrombin Time INR 0.9 (0.9-1.1) PTT 33 SEC (23-33) Sodium Level 144 MMOL/L (136-145) Potassium Level 4.5 MMOL/L (3.5-5.1) Chloride Level 105 MMOL/L (98-107) Carbon Dioxide Level 32 MMOL/L (21-32) Anion Gap 7 mmol/L (5-15) Blood Urea Nitrogen 13 mg/dL (7-18) Creatinine 1.0 MG/DL (0.55-1.30) Estimate Glomerular Filtration Rate mL/min (>60) Glucose Level 113 MG/DL (74-106) H Lactic Acid Level 2.40 mmol/L (0.4-2.0) H Calcium Level 9.8 MG/DL (8.5-10.1) Phosphorus Level 3.9 MG/DL (2.5-4.9) Magnesium Level 2.2 MG/DL (1.8-2.4) Total Bilirubin 0.5 MG/DL (0.2-1.0) Aspartate Amino Transferase (AST) 49 U/L (15-37) H Alanine Aminotransferase (ALT) 55 U/L (12-78) Alkaline Phosphatase 266 U/L (46-116) H Total Creatine Kinase 93 U/L (26-308) Creatine Kinase MB 0.7 NG/ML (0.0-3.6) Creatine Kinase MB Relative Index 0.7 Troponin I 0.000 ng/mL (0.000-0.056) Pro-B-Type Natriuretic Peptide 22 pg/mL (0-125) Total Protein 9.0 G/DL (6.4-8.2) H Albumin 3.6 G/DL (3.4-5.0) Globulin 5.4 g/dL Albumin/Globulin Ratio 0.7 (1.0-2.7) L Lipase 112 U/L (73-393) Arterial Blood pH Pending Arterial Blood Partial Pressure CO2 Pending Arterial Blood Partial Pressure O2 Pending Arterial Blood HCO3 Pending Arterial Blood Oxygen Saturation Pending Arterial Blood Base Excess Pending Daryl Test Pending EKG: Rate: 102 Rhythm: other - Sinus tachycardia Chest X-Ray: Hypoventilatory exam Subjective ROS Limited/Unobtainable: No Allergies: Coded Allergies: PNEUMOCOCCAL VACCINE (Unverified Allergy, Unknown, 10/07/18) Objective Last 24 Hour Vital Signs Date Time Temp Pulse Resp B/P (MAP) Pulse Ox O2 Delivery O2 Flow Rate FiO2 05/10/19 16:00 98.5 85 18 135/86 (102) 100 05/10/19 15:29 77 20 100 Nasal Cannula 2.0 28 81 20 97 05/10/19 12:00 98.7 81 18 130/82 (98) 100 05/10/19 11:28 79 20 100 Nasal Cannula 2.0 28 76 20 100 05/10/19 09:49 77 128/79 05/10/19 09:00 Nasal Cannula 2.0 05/10/19 08:00 98.6 77 20 128/79 (95) 100 05/10/19 07:53 78 20 100 Nasal Cannula 2.0 28 77 20 100 05/10/19 07:53 100 Nasal Cannula 2.0 28 05/10/19 03:15 97.9 74 20 123/76 (92) 99 05/10/19 03:14 86 20 99 Nasal Cannula 2.0 28 84 22 97 05/10/19 00:00 97.3 79 18 112/63 (79) 96 05/10/19 00:00 Nasal Cannula 2.0 05/09/19 23:35 76 05/09/19 22:55 76 20 100 Nasal Cannula 2.0 28 80 20 96 05/09/19 20:00 Nasal Cannula 2.0 05/09/19 20:00 98.1 88 20 151/70 (97) 96 05/09/19 19:14 75 20 100 Nasal Cannula 2.0 28 78 20 98 05/09/19 19:13 98 Nasal Cannula 2.0 28 05/09/19 19:03 77 Intake and Output 05/09/19 05/10/19 19:00 07:00 Intake Total 727.000 ml 805.000 ml Output Total 400 ml 200 ml Balance 327.000 ml 605.000 ml Intake Oral 120 ml 0 ml IV Total 607.000 ml 805.000 ml Output Urine Total 400 ml 200 ml # Voids 1 # Bowel Movements 2 1 Microbiology Date/Time Source Procedure Growth Status 05/08/19 20:20 Blood Blood Culture - Preliminary NO GROWTH AFTER 24 HOURS Resulted 05/08/19 20:05 Blood Blood Culture - Preliminary NO GROWTH AFTER 24 HOURS Resulted 05/09/19 00:07 Nasal Nares - Final Complete 05/09/19 00:07 Nasal Nares - Final Complete Laboratory Tests 05/10/19 05:49: White Blood Count 10.0, Red Blood Count 4.68L, Hemoglobin 14.5, Hematocrit 44.7 , Mean Corpuscular Volume 96, Mean Corpuscular Hemoglobin 30.9, Mean Corpuscular Hemoglobin Concent 32.4, Red Cell Distribution Width 13.6, Platelet Count 314, Mean Platelet Volume 5.3L, Neutrophils (%) (Auto) 60.7, Lymphocytes ( %) (Auto) 24.1, Monocytes (%) (Auto) 11.2H, Eosinophils (%) (Auto) 2.2, Basophils (%) (Auto) 1.8, Sodium Level 141, Potassium Level 3.1L, Chloride Level 104, Carbon Dioxide Level 36H, Anion Gap 1L, Blood Urea Nitrogen 8, Creatinine 0.9, Estimat Glomerular Filtration Rate , Glucose Level 126H, Calcium Level 8.9 Current Medications Medications (Trade) Dose Ordered Sig/Nidhi Route PRN Reason Start Time Stop Time Status Last Admin Dose Admin Acetaminophen (Tylenol) 650 mg Q4H PRN ORAL Mild Pain/Temp > 100.5 05/10/19 03:30 06/07/19 23:29 Albuterol/ Ipratropium (Albuterol/ Ipratropium) 3 ml Q4HRT HHN 05/10/19 07:00 05/14/19 10:59 05/10/19 15:45 Amlodipine Besylate (Norvasc) 5 mg DAILY ORAL 05/10/19 09:00 06/09/19 08:59 05/10/19 09:49 Ascorbic Acid (Vitamin C) 250 mg TWICE A DAY ORAL 05/10/19 09:00 06/09/19 08:59 05/10/19 17:07 Donepezil HCl (Aricept) 5 mg QHS ORAL 05/10/19 21:00 06/08/19 20:59 Heparin Sodium (Porcine) (Heparin 5000 units/ml) 5,000 units EVERY 12 HOURS SUBQ 05/10/19 09:00 06/08/19 20:59 05/10/19 09:55 Levetiracetam (Keppra) 1,500 mg Q12HR ORAL 05/10/19 09:00 06/08/19 20:59 05/10/19 09:48 Multivitamins (Multivitamins) 1 tab DAILY ORAL 05/10/19 09:00 06/09/19 08:59 05/10/19 09:47 Piperacillin Sod/ Tazobactam Sod 3.375 gm/Sodium Chloride 110 ml @ 27.5 mls/hr Q8HR IVPB 05/10/19 06:00 05/16/19 11:59 05/10/19 14:00 Potassium Chloride (K-Dur) 20 meq TWICE A DAY ORAL 05/10/19 09:00 06/09/19 08:59 05/10/19 17:06 Vancomycin HCl (Vanco rx to dose) 1 ea DAILY PRN MISC Per rx protocol 05/10/19 09:00 06/08/19 09:59 Vancomycin HCl 1 gm/Dextrose 275 ml @ 183.708 mls/hr Q12HR@1100,2300 IVPB 05/10/19 11:00 05/14/19 10:59 05/10/19 11:00 Porfirio Daniel MD May 10, 2019 17:43
[2019-05-10 20:00] VITALS: BP 132/81
[2019-05-10] MEDS: Donepezil 5mg Tab ORAL SCH (21:06)
[2019-05-11] VITALS: BP 158/83
[2019-05-11] MEDS: Albuterol/Ipratropium 3ml neb HHN SCH ×6 (03:19→23:32)
[2019-05-11 04:00] VITALS: BP 128/87
[2019-05-11] MEDS: Piperacillin/Tazobactam 3.375 GM in NS 110 ML IVPB SCH ×3 (05:14→22:03)
[2019-05-11 08:00] VITALS: BP 130/81
[2019-05-11] MEDS: Ascorbic Acid 500mg tab ORAL SCH ×2 (08:56→17:15)
[2019-05-11] MEDS: Heparin 5000 units/ml inj SUBQ SCH ×2 (09:00→20:32)
--- NOTE | 2019-05-11 09:31 | Hematology/Onc Progress Note ---
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 Greatly appreciate consultation! Subjective HEENT: Denies: no symptoms, eye pain, blurred vision, tearing, double vision, ear pain, ear discharge, nose pain, nose congestion, throat pain, throat swelling, mouth pain, mouth swelling, other Respiratory: Denies: no symptoms, cough, shortness of breath, SOB with excertion, SOB at rest, sputum, wheezing, other Gastrointestinal/Abdominal: Denies: no symptoms, abdomen distended, abdominal pain, black stools, tarry stools, blood in stool, constipated, diarrhea, difficulty swallowing, nausea, poor appetite, poor fluid intake, rectal bleeding , vomiting, other Genitourinary: Denies: no symptoms, burning, discharge, frequency, flank pain, hematuria, incontinence, pain, urgency, other Neurologic/Psychiatric: Denies: no symptoms, anxiety, depressed, emotional problems, headache, numbness, paresthesia, pre-existing deficit, seizure, tingling, tremors, weakness, other Endocrine: Denies: no symptoms, excessive sweating, flushing, intolerance to cold, intolerance to heat, increased hunger, increased thirst, increased urine, unexplained weight gain, unexplained weight loss, other Allergies: Coded Allergies: PNEUMOCOCCAL VACCINE (Unverified Allergy, Unknown, 10/07/18) Subjective 05/11: remains altered, is on abx, no bleeding, no night sweats, labs reviewed Objective Objective Current Medications Medications (Trade) Dose Ordered Sig/Nidhi Route PRN Reason Start Time Stop Time Status Last Admin Dose Admin Acetaminophen (Tylenol) 650 mg Q4H PRN ORAL Mild Pain/Temp > 100.5 05/10/19 03:30 06/07/19 23:29 05/10/19 21:06 Albuterol/ Ipratropium (Albuterol/ Ipratropium) 3 ml Q4HRT HHN 05/10/19 07:00 05/14/19 10:59 05/11/19 06:52 Amlodipine Besylate (Norvasc) 5 mg DAILY ORAL 05/10/19 09:00 06/09/19 08:59 05/11/19 08:57 Ascorbic Acid (Vitamin C) 250 mg TWICE A DAY ORAL 05/10/19 09:00 06/09/19 08:59 05/11/19 08:56 Donepezil HCl (Aricept) 5 mg QHS ORAL 05/10/19 21:00 06/08/19 20:59 05/10/19 21:06 Heparin Sodium (Porcine) (Heparin 5000 units/ml) 5,000 units EVERY 12 HOURS SUBQ 05/10/19 09:00 06/08/19 20:59 05/10/19 21:14 Levetiracetam (Keppra) 1,500 mg Q12HR ORAL 05/10/19 09:00 06/08/19 20:59 05/11/19 08:56 Multivitamins (Multivitamins) 1 tab DAILY ORAL 05/10/19 09:00 06/09/19 08:59 05/11/19 08:56 Piperacillin Sod/ Tazobactam Sod 3.375 gm/Sodium Chloride 110 ml @ 27.5 mls/hr Q8HR IVPB 05/10/19 06:00 05/16/19 11:59 05/11/19 05:14 Potassium Chloride (K-Dur) 20 meq TWICE A DAY ORAL 05/10/19 09:00 06/09/19 08:59 05/11/19 08:57 Vancomycin HCl (Vanco rx to dose) 1 ea DAILY PRN MISC Per rx protocol 05/10/19 09:00 06/08/19 09:59 Vancomycin HCl 1 gm/Dextrose 275 ml @ 183.708 mls/hr Q12HR@1100,2300 IVPB 05/10/19 11:00 05/14/19 10:59 05/10/19 23:56 Last 24 Hour Vital Signs Date Time Temp Pulse Resp B/P (MAP) Pulse Ox O2 Delivery O2 Flow Rate FiO2 05/11/19 08:57 68 130/81 05/11/19 08:00 97.6 68 18 130/81 (97) 97 05/11/19 06:54 96 Nasal Cannula 2.0 28 05/11/19 06:54 82 18 100 Nasal Cannula 2.0 28 80 18 96 05/11/19 04:00 97.8 80 19 128/87 (101) 100 05/11/19 03:19 84 18 100 Nasal Cannula 2.0 28 79 18 99 05/11/19 01:22 89 98 05/11/19 00:00 99.0 111 19 158/83 (108) 93 05/10/19 23:30 86 18 100 Nasal Cannula 2.0 28 84 18 99 05/10/19 21:36 100.4 05/10/19 21:00 Nasal Cannula 2.0 05/10/19 20:19 97 18 100 Nasal Cannula 2.0 28 96 18 97 05/10/19 20:19 100 Nasal Cannula 2.0 28 05/10/19 20:00 102.0 112 20 132/81 (98) 05/10/19 16:00 98.5 85 18 135/86 (102) 100 05/10/19 15:29 77 20 100 Nasal Cannula 2.0 28 81 20 97 05/10/19 12:00 98.7 81 18 130/82 (98) 100 05/10/19 11:28 79 20 100 Nasal Cannula 2.0 28 76 20 100 05/10/19 09:49 77 128/79 05/10/19 09:00 Nasal Cannula 2.0 05/10/19 08:00 98.6 77 20 128/79 (95) 100 05/10/19 07:53 78 20 100 Nasal Cannula 2.0 28 77 20 100 05/10/19 07:53 100 Nasal Cannula 2.0 28 05/10/19 03:15 97.9 74 20 123/76 (92) 99 05/10/19 03:14 86 20 99 Nasal Cannula 2.0 28 84 22 97 05/10/19 00:00 97.3 79 18 112/63 (79) 96 05/10/19 00:00 Nasal Cannula 2.0 05/09/19 23:35 76 05/09/19 22:55 76 20 100 Nasal Cannula 2.0 28 80 20 96 05/09/19 20:00 Nasal Cannula 2.0 05/09/19 20:00 98.1 88 20 151/70 (97) 96 05/09/19 19:14 75 20 100 Nasal Cannula 2.0 28 78 20 98 05/09/19 19:13 98 Nasal Cannula 2.0 28 05/09/19 19:03 77 05/09/19 16:00 97.8 76 18 122/87 (99) 99 05/09/19 16:00 Nasal Cannula 2.0 05/09/19 16:00 72 05/09/19 15:25 76 20 100 Nasal Cannula 2.0 28 78 20 99 05/09/19 12:00 98.4 79 18 127/72 (90) 100 05/09/19 12:00 Nasal Cannula 2.0 05/09/19 11:22 72 05/09/19 10:50 74 17 100 Nasal Cannula 2.0 28 79 18 100 05/09/19 10:39 79 18 100 Nasal Cannula 2.0 28 05/09/19 10:39 100 Nasal Cannula 2.0 28 Intake and Output 05/10/19 05/11/19 19:00 07:00 Intake Total 1025.000 ml 412.500 ml Output Total 800 ml 350 ml Balance 225.000 ml 62.500 ml Intake Oral 640 ml IV Total 385.000 ml 412.500 ml Output Urine Total 800 ml 350 ml Labs Test 05/08/19 20:00 05/08/19 21:15 05/08/19 21:47 05/09/19 05:25 White Blood Count 14.4 K/UL (4.8-10.8) 12.7 K/UL (4.8-10.8) Red Blood Count 4.91 M/UL (4.70-6.10) 4.47 M/UL (4.70-6.10) Hemoglobin 15.8 G/DL (14.2-18.0) 14.2 G/DL (14.2-18.0) Hematocrit 44.9 % (42.0-52.0) 42.6 % (42.0-52.0) Mean Corpuscular Volume 91 FL (80-99) 95 FL (80-99) Mean Corpuscular Hemoglobin 32.2 PG (27.0-31.0) 31.9 PG (27.0-31.0) Mean Corpuscular Hemoglobin Concent 35.2 G/DL (32.0-36.0) 33.4 G/DL (32.0-36.0) Red Cell Distribution Width 12.3 % (11.6-14.8) 13.4 % (11.6-14.8) Platelet Count 302 K/UL (150-450) 328 K/UL (150-450) Mean Platelet Volume 6.0 FL (6.5-10.1) 5.6 FL (6.5-10.1) Neutrophils (%) (Auto) 70.8 % (45.0-75.0) 62.6 % (45.0-75.0) Lymphocytes (%) (Auto) 18.0 % (20.0-45.0) 24.8 % (20.0-45.0) Monocytes (%) (Auto) 9.3 % (1.0-10.0) 10.3 % (1.0-10.0) Eosinophils (%) (Auto) 0.6 % (0.0-3.0) 1.0 % (0.0-3.0) Basophils (%) (Auto) 1.3 % (0.0-2.0) 1.3 % (0.0-2.0) Prothrombin Time 10.0 SEC (9.30-11.50) Prothromb Time International Ratio 0.9 (0.9-1.1) Activated Partial Thromboplast Time 33 SEC (23-33) Sodium Level 144 MMOL/L (136-145) 143 MMOL/L (136-145) Potassium Level 4.5 MMOL/L (3.5-5.1) 3.9 MMOL/L (3.5-5.1) Chloride Level 105 MMOL/L (98-107) 107 MMOL/L (98-107) Carbon Dioxide Level 32 MMOL/L (21-32) 32 MMOL/L (21-32) Anion Gap 7 mmol/L (5-15) 4 mmol/L (5-15) Blood Urea Nitrogen 13 mg/dL (7-18) 10 mg/dL (7-18) Creatinine 1.0 MG/DL (0.55-1.30) 0.8 MG/DL (0.55-1.30) Estimat Glomerular Filtration Rate mL/min (>60) mL/min (>60) Glucose Level 113 MG/DL (74-106) 103 MG/DL (74-106) Lactic Acid Level 2.40 mmol/L (0.4-2.0) 1.30 mmol/L (0.66-2.22) Calcium Level 9.8 MG/DL (8.5-10.1) 8.8 MG/DL (8.5-10.1) Phosphorus Level 3.9 MG/DL (2.5-4.9) Magnesium Level 2.2 MG/DL (1.8-2.4) Total Bilirubin 0.5 MG/DL (0.2-1.0) 0.6 MG/DL (0.2-1.0) Aspartate Amino Transf (AST/SGOT) 49 U/L (15-37) 40 U/L (15-37) Alanine Aminotransferase (ALT/SGPT) 55 U/L (12-78) 46 U/L (12-78) Alkaline Phosphatase 266 U/L (46-116) 242 U/L (46-116) Total Creatine Kinase 93 U/L (26-308) Creatine Kinase MB 0.7 NG/ML (0.0-3.6) Creatine Kinase MB Relative Index 0.7 Troponin I 0.000 ng/mL (0.000-0.056) Pro-B-Type Natriuretic Peptide 22 pg/mL (0-125) Total Protein 9.0 G/DL (6.4-8.2) 8.1 G/DL (6.4-8.2) Albumin 3.6 G/DL (3.4-5.0) 3.2 G/DL (3.4-5.0) Globulin 5.4 g/dL 4.9 g/dL Albumin/Globulin Ratio 0.7 (1.0-2.7) 0.7 (1.0-2.7) Lipase 112 U/L (73-393) Arterial Blood pH 7.426 (7.350-7.450) Arterial Blood Partial Pressure CO2 43.0 mmHg (35.0-45.0) Arterial Blood Partial Pressure O2 83.8 mmHg (75.0-100.0) Arterial Blood HCO3 27.6 mmol/L (22.0-26.0) Arterial Blood Oxygen Saturation 96.4 % (95-100) Arterial Blood Base Excess 2.9 (-2-2) Daryl Test Positive Test 05/10/19 05:49 05/10/19 21:50 White Blood Count 10.0 K/UL (4.8-10.8) Red Blood Count 4.68 M/UL (4.70-6.10) Hemoglobin 14.5 G/DL (14.2-18.0) Hematocrit 44.7 % (42.0-52.0) Mean Corpuscular Volume 96 FL (80-99) Mean Corpuscular Hemoglobin 30.9 PG (27.0-31.0) Mean Corpuscular Hemoglobin Concent 32.4 G/DL (32.0-36.0) Red Cell Distribution Width 13.6 % (11.6-14.8) Platelet Count 314 K/UL (150-450) Mean Platelet Volume 5.3 FL (6.5-10.1) Neutrophils (%) (Auto) 60.7 % (45.0-75.0) Lymphocytes (%) (Auto) 24.1 % (20.0-45.0) Monocytes (%) (Auto) 11.2 % (1.0-10.0) Eosinophils (%) (Auto) 2.2 % (0.0-3.0) Basophils (%) (Auto) 1.8 % (0.0-2.0) Sodium Level 141 MMOL/L (136-145) Potassium Level 3.1 MMOL/L (3.5-5.1) Chloride Level 104 MMOL/L (98-107) Carbon Dioxide Level 36 MMOL/L (21-32) Anion Gap 1 mmol/L (5-15) Blood Urea Nitrogen 8 mg/dL (7-18) Creatinine 0.9 MG/DL (0.55-1.30) Estimat Glomerular Filtration Rate mL/min (>60) Glucose Level 126 MG/DL (74-106) Calcium Level 8.9 MG/DL (8.5-10.1) Vancomycin Level Trough 16.7 ug/mL (5.0-12.0) Height (Feet): 5 Height (Inches): 9.00 Weight (Pounds): 175 General Appearance: lethargic Neck: normal alignment Cardiovascular: regular rhythm Respiratory/Chest: no respiratory distress Abdomen: no mass Extremities: non-tender Ignacio Ponce MD May 11, 2019 09:31
--- NOTE | 2019-05-11 10:49 | Infectious Diseases Prog Note ---
Assessment/Plan Assessment/Plan IMPRESSION: Sepsis with leukocytosis, tachycardia, and lactic acidosis. COPD exacerbation, ? early pneumonia, hypoxemia, hypertension, dementia. RECOMMENDATION: We will continue with vancomycin, and Zosyn Repeat CXR Subjective ROS Limited/Unobtainable: Yes Constitutional: Reports: fever, other - T=102 last night Respiratory: Reports: no symptoms Neurologic: Reports: other - left hand restraint Allergies: Coded Allergies: PNEUMOCOCCAL VACCINE (Unverified Allergy, Unknown, 10/07/18) Objective Vital Signs Last 24 Hour Vital Signs Date Time Temp Pulse Resp B/P (MAP) Pulse Ox O2 Delivery O2 Flow Rate FiO2 05/11/19 09:00 Nasal Cannula 2.0 05/11/19 08:57 68 130/81 05/11/19 08:00 97.6 68 18 130/81 (97) 97 05/11/19 06:54 96 Nasal Cannula 2.0 28 05/11/19 06:54 82 18 100 Nasal Cannula 2.0 28 80 18 96 05/11/19 04:00 97.8 80 19 128/87 (101) 100 05/11/19 03:19 84 18 100 Nasal Cannula 2.0 28 79 18 99 05/11/19 01:22 89 98 05/11/19 00:00 99.0 111 19 158/83 (108) 93 05/10/19 23:30 86 18 100 Nasal Cannula 2.0 28 84 18 99 05/10/19 21:36 100.4 05/10/19 21:00 Nasal Cannula 2.0 05/10/19 20:19 97 18 100 Nasal Cannula 2.0 28 96 18 97 05/10/19 20:19 100 Nasal Cannula 2.0 28 05/10/19 20:00 102.0 112 20 132/81 (98) 05/10/19 16:00 98.5 85 18 135/86 (102) 100 05/10/19 15:29 77 20 100 Nasal Cannula 2.0 28 81 20 97 05/10/19 12:00 98.7 81 18 130/82 (98) 100 05/10/19 11:28 79 20 100 Nasal Cannula 2.0 28 76 20 100 Height (Feet): 5 Height (Inches): 9.00 Weight (Pounds): 175 General Appearance: no acute distress HEENT: mucous membranes moist Respiratory/Chest: lungs clear, other - oxygen by nasal cannula Cardiovascular: normal rate Abdomen: soft, non tender Extremities: no edema Neurologic/Psychiatric: other - poorly responsive Microbiology Date/Time Source Procedure Growth Status 05/08/19 20:20 Blood Blood Culture - Preliminary NO GROWTH AFTER 48 HOURS Resulted 05/08/19 20:05 Blood Blood Culture - Preliminary NO GROWTH AFTER 48 HOURS Resulted 05/09/19 00:07 Nasal Nares - Final Complete 05/09/19 00:07 Nasal Nares - Final Complete 05/08/19 23:50 Nasal Nares MRSA Culture - Final NO METHICILLIN RESISTANT STAPH AUREUS... Complete 05/08/19 23:50 Rectum VRE Culture - Final NO VANCOMYCIN RESISTANT ENTEROCOCCUS ... Complete Laboratory Tests Test 05/10/19 21:50 05/11/19 10:15 Vancomycin Level Trough 16.7 ug/mL (5.0-12.0) H Calcium Level Pending Current Medications Medications (Trade) Dose Ordered Sig/Nidhi Route PRN Reason Start Time Stop Time Status Last Admin Dose Admin Acetaminophen (Tylenol) 650 mg Q4H PRN ORAL Mild Pain/Temp > 100.5 05/10/19 03:30 06/07/19 23:29 05/10/19 21:06 Albuterol/ Ipratropium (Albuterol/ Ipratropium) 3 ml Q4HRT HHN 05/10/19 07:00 05/14/19 10:59 05/11/19 06:52 Amlodipine Besylate (Norvasc) 5 mg DAILY ORAL 05/10/19 09:00 06/09/19 08:59 05/11/19 08:57 Ascorbic Acid (Vitamin C) 250 mg TWICE A DAY ORAL 05/10/19 09:00 06/09/19 08:59 05/11/19 08:56 Donepezil HCl (Aricept) 5 mg QHS ORAL 05/10/19 21:00 06/08/19 20:59 05/10/19 21:06 Heparin Sodium (Porcine) (Heparin 5000 units/ml) 5,000 units EVERY 12 HOURS SUBQ 05/10/19 09:00 06/08/19 20:59 05/10/19 21:14 Levetiracetam (Keppra) 1,500 mg Q12HR ORAL 05/10/19 09:00 06/08/19 20:59 05/11/19 08:56 Multivitamins (Multivitamins) 1 tab DAILY ORAL 05/10/19 09:00 06/09/19 08:59 05/11/19 08:56 Piperacillin Sod/ Tazobactam Sod 3.375 gm/Sodium Chloride 110 ml @ 27.5 mls/hr Q8HR IVPB 05/10/19 06:00 05/16/19 11:59 05/11/19 05:14 Potassium Chloride (K-Dur) 20 meq TWICE A DAY ORAL 05/10/19 09:00 06/09/19 08:59 05/11/19 08:57 Vancomycin HCl (Vanco rx to dose) 1 ea DAILY PRN MISC Per rx protocol 05/10/19 09:00 06/08/19 09:59 Vancomycin HCl 1 gm/Dextrose 275 ml @ 183.708 mls/hr Q12HR@1100,2300 IVPB 05/10/19 11:00 05/14/19 10:59 05/10/19 23:56 Curtis Farah MD May 11, 2019 10:49
[2019-05-11] MEDS: Vancomycin 1 GM in D5W 275 ML IVPB SCH ×2 (11:00→22:55)
[2019-05-11 12:00] VITALS: BP 133/79
[2019-05-11 16:00] VITALS: BP 105/72
--- NOTE | 2019-05-11 16:25 | Surgery Progress Note ---
Surgery Progress Note Subjective Additional Comments Patient seen and examined bedside. No acute events. Resting comfortably. Labs noted. Exam stable. Objective Last 24 Hour Vital Signs Date Time Temp Pulse Resp B/P (MAP) Pulse Ox O2 Delivery O2 Flow Rate FiO2 05/11/19 16:00 97.8 85 18 105/72 (83) 98 05/11/19 14:46 72 16 99 Nasal Cannula 2.0 28 68 16 96 05/11/19 12:00 97.6 70 18 133/79 (97) 98 05/11/19 11:12 80 18 100 Nasal Cannula 2.0 28 76 18 97 05/11/19 09:00 Nasal Cannula 2.0 05/11/19 08:57 68 130/81 05/11/19 08:00 97.6 68 18 130/81 (97) 97 05/11/19 06:54 96 Nasal Cannula 2.0 28 05/11/19 06:54 82 18 100 Nasal Cannula 2.0 28 80 18 96 05/11/19 04:00 97.8 80 19 128/87 (101) 100 05/11/19 03:19 84 18 100 Nasal Cannula 2.0 28 79 18 99 05/11/19 01:22 89 98 05/11/19 00:00 99.0 111 19 158/83 (108) 93 05/10/19 23:30 86 18 100 Nasal Cannula 2.0 28 84 18 99 05/10/19 21:36 100.4 05/10/19 21:00 Nasal Cannula 2.0 05/10/19 20:19 97 18 100 Nasal Cannula 2.0 28 96 18 97 05/10/19 20:19 100 Nasal Cannula 2.0 28 05/10/19 20:00 102.0 112 20 132/81 (98) I&O Intake and Output 05/10/19 05/11/19 19:00 07:00 Intake Total 1025.000 ml 412.500 ml Output Total 800 ml 350 ml Balance 225.000 ml 62.500 ml Intake Oral 640 ml IV Total 385.000 ml 412.500 ml Output Urine Total 800 ml 350 ml Dressing: other Wound: other Drains: other Cardiovascular: RSR Respiratory: clear Abdomen: soft, non-tender, present bowel sounds Extremities: no cyanosis, other Laboratory Tests Test 05/10/19 21:50 05/11/19 10:15 Vancomycin Level Trough 16.7 ug/mL (5.0-12.0) H Calcium Level 10.0 MG/DL (8.5-10.1) Plan Problems: (1) Decubitus skin ulcer Assessment & Plan: Pt presented on admission with resolving pressure injuries sacrum R heel. Resolving full thickness sacral pressure injury. Beefy red granulation with small amt Biofilm at base of wound (L)1cm x (W)1.5cm x(D)0.2cm ,with surrounding pink epithelial(L)3.5cm x (W)3cm.No odor or exudate noted. Loose dry eschar noted to R heel (L)0.8cm x (W)3.5cm. Easily removed with friction. R heel is boggy with non-blanching erythema. Historical surgical scar noted to R hip. L heel boggy with non-blanching erythema. No other skin concerns noted. Pt requires extensive asst with bed mobility and is at high risks for skin breakdown. Both hips and both heels padded with Optifoam drsg to minimize friction on skin. Pt positioned on side with pillow and both heels floated with pillows off bed. Tx.Plan: Apply Moisture Barrier Paste to Sacrum. Cover with Optifoam drsg. Change every 3 days and prn. Apply Cavilon Skin Barrier to Both heels. Cover each heel with Optifoam drsg. Change every 7 days and prn. Reposition at least every 2 hours or as tolerated. Off-load heels with pillow. (2) Leukocytosis (3) Severe sepsis Assessment & Plan: leukocytosis - resolved lactic acidosis - resolved abnormal labs cxr noted exam as above on IV abx trend labs cont with current care thank you (4) Protein-calorie malnutrition, severe Assessment & Plan: DAILY ESTIMATED NEEDS: Needs based on Pulmonary, wounds; 74.5kg 25-35 kcals/kg 1863- 2608 total kcals 1.25-1.5 g protein/kg 93- 112 g total protein 25-30 mL/kg 8177-5790 total fluid mLs NUTRITION DIAGNOSIS: 1. Increased pro needs r/t wound healing AEB pt adm w/ r heel unstageable Sacral partial thickness wounds per EMR, WC eval pending. 2. Swallowing difficulty r/t dysphagia AEB diet [employer] regular, puree, thin liquids- [employer] eval pending. CURRENT DIET:NPO PO DIET RECOMMENDATIONS: Regular, texture per [employer] ----> WHEN APPROPRIATE ADDITIONAL RECOMMENDATIONS: * F/up w/ WC eval W/ diet addd Hai in 8oz H2O BID + Vit C 250mmg BID + MVI w/ min qd * F/up w/ [employer] for appropriate texture -> w/ need for supplements, rec Ensure Enlive. * Obtain calibrated bed scale wts * Consult RD fo TF recs if needed, if part of POC (5) Lung mass Assessment & Plan: 2 cm pleural-based masslike opacity containing multiple nodular calcifications andadjacent parenchymal linear density persists in the anterolateral periphery of thelateral segment right middle lobe, unchanged. Adjacent small nodular parenchymaldensities persist, unchanged. Small irregular pleural-based linear densities persist in the dependent portions of both lung bases, unchanged. No new pulmonary parenchymal abnormality demonstrated. No pleural disease is evident. Nodularcalcification in right hilum unchanged. Clustered calcified nodules in the subcarinal region of mediastinum unchanged. No new mediastinal or hilar enlarged lymph nodes. Heart remains normal in size. No pericardial abnormality. Centralmediastinal vasculature remains unremarkable in appearance. noted prior in 2017. no path available cxr noted may repeat CT chest once improving (6) Lactic acid acidosis Gabino Little May 11, 2019 16:25
[2019-05-11 20:00] VITALS: BP 129/71
--- NOTE | 2019-05-11 20:20 | General Progress Note ---
Assessment/Plan Problem List: (1) Dyspnea ICD Codes: R06.00 - Dyspnea, unspecified SNOMED: 267613247 Qualifiers: Qualified Codes: R06.00 - Dyspnea, unspecified (2) Protein-calorie malnutrition, severe ICD Codes: E43 - Unspecified severe protein-calorie malnutrition SNOMED: 562644830 (3) Decubitus skin ulcer ICD Codes: L89.90 - Pressure ulcer of unspecified site, unspecified stage SNOMED: 415616344 (4) Hypoxia ICD Codes: R09.02 - Hypoxemia SNOMED: 861762628 (5) Dehydration ICD Codes: E86.0 - Dehydration SNOMED: 48365831 Status: progressing Assessment/Plan: pna abx per id not hypoxic afebrile reviewed chart and labs Subjective ROS Limited/Unobtainable: Yes Allergies: Coded Allergies: PNEUMOCOCCAL VACCINE (Unverified Allergy, Unknown, 10/07/18) Objective Last 24 Hour Vital Signs Date Time Temp Pulse Resp B/P (MAP) Pulse Ox O2 Delivery O2 Flow Rate FiO2 05/11/19 20:00 98.7 83 20 129/71 (90) 97 05/11/19 19:17 74 18 100 Nasal Cannula 2.0 28 72 18 97 05/11/19 19:17 97 Nasal Cannula 2.0 28 05/11/19 16:00 97.8 85 18 105/72 (83) 98 05/11/19 14:46 72 16 99 Nasal Cannula 2.0 28 68 16 96 05/11/19 12:00 97.6 70 18 133/79 (97) 98 05/11/19 11:12 80 18 100 Nasal Cannula 2.0 28 76 18 97 05/11/19 09:00 Nasal Cannula 2.0 05/11/19 08:57 68 130/81 05/11/19 08:00 97.6 68 18 130/81 (97) 97 05/11/19 06:54 96 Nasal Cannula 2.0 28 05/11/19 06:54 82 18 100 Nasal Cannula 2.0 28 80 18 96 05/11/19 04:00 97.8 80 19 128/87 (101) 100 05/11/19 03:19 84 18 100 Nasal Cannula 2.0 28 79 18 99 05/11/19 01:22 89 98 05/11/19 00:00 99.0 111 19 158/83 (108) 93 05/10/19 23:30 86 18 100 Nasal Cannula 2.0 28 84 18 99 05/10/19 21:36 100.4 05/10/19 21:00 Nasal Cannula 2.0 05/10/19 20:19 97 18 100 Nasal Cannula 2.0 28 96 18 97 05/10/19 20:19 100 Nasal Cannula 2.0 28 Intake and Output 05/10/19 05/11/19 19:00 07:00 Intake Total 1025.000 ml 412.500 ml Output Total 800 ml 350 ml Balance 225.000 ml 62.500 ml Intake Oral 640 ml IV Total 385.000 ml 412.500 ml Output Urine Total 800 ml 350 ml Laboratory Tests 05/10/19 21:50: Vancomycin Level Trough 16.7H 05/11/19 10:15: Calcium Level 10.0 Height (Feet): 5 Height (Inches): 9.00 Weight (Pounds): 175 Cardiovascular: normal rate Respiratory/Chest: lungs clear Abdomen: soft Konrad Soares MD May 11, 2019 20:20
[2019-05-11] MEDS: Donepezil 5mg Tab ORAL SCH (20:26)
--- NOTE | 2019-05-11 21:02 | Pulmonology Progress Note ---
Assessment/Plan Assessment/Plan Pulmonary Progress Note HPI Patient is a 69 year old male care home patient with history of Chronic Obstructive Pulmonary Disease, Chronic Granulomatous Disease, Hypertension, Renal Myolipoma, history of seizures, dementia, encephalopathy, Diverticulosis, noncommunicative, admitted with respiratory distress, patient found to be hypoxic, congested, and more altered. No other history available. Less short of breath, comfortable, passed swallow evaluation, AB per ID Allergies: PNEUMOCOCCAL VACCINE Past Medical History: Chronic Obstructive Pulmonary Disease, Chronic Granulomatous Disease, Hypertension, Diverticulosis, Renal Myolipoma, history of Seizures, history of Dementia, encephalopathy All Other Systems: limited - Not communicative Physical Exam Vital Signs Noted General Appearance: moderate distress, thin, Chronically Ill appearing Head: normocephalic, atraumatic Eyes: bilateral eye PERRL, bilateral eye EOMI ENT: uvula midline, dry mucus membranes Neck: supple, thyroid normal, supple/symm/no masses Respiratory: CTAB Cardiovascular: normal peripheral pulses, HS1, HS2, RRR, no edema, no gallop, no murmur, tachycardia Gastrointestinal: non tender, soft, no guarding, no rebound Musculoskeletal: normal inspection Neurologic: awake, chronically altered Skin: no rash, warm/dry Impression: Chronic obstructive pulmonary disease Healthcare-associated pneumonia Dyspnea, Hypoxia Dehydration Chronic Granulomatous Disease Hypertension Diverticulosis Renal Myolipoma History of Seizures History of Dementia Chronic Encephalopathy ER Course - IV Antibiotics - HHN - O2 PRN - PTAMedications - Aspiration precautions - PPX - IVF - Monitor labs Laboratory Tests Noted EKG: Rate: 102 Rhythm: other - Sinus tachycardia Chest X-Ray: Hypoventilatory exam Subjective ROS Limited/Unobtainable: No Allergies: Coded Allergies: PNEUMOCOCCAL VACCINE (Unverified Allergy, Unknown, 10/07/18) Objective Last 24 Hour Vital Signs Date Time Temp Pulse Resp B/P (MAP) Pulse Ox O2 Delivery O2 Flow Rate FiO2 05/11/19 20:00 98.7 83 20 129/71 (90) 97 05/11/19 19:17 74 18 100 Nasal Cannula 2.0 28 72 18 97 05/11/19 19:17 97 Nasal Cannula 2.0 28 05/11/19 16:00 97.8 85 18 105/72 (83) 98 05/11/19 14:46 72 16 99 Nasal Cannula 2.0 28 68 16 96 05/11/19 12:00 97.6 70 18 133/79 (97) 98 05/11/19 11:12 80 18 100 Nasal Cannula 2.0 28 76 18 97 05/11/19 09:00 Nasal Cannula 2.0 05/11/19 08:57 68 130/81 05/11/19 08:00 97.6 68 18 130/81 (97) 97 05/11/19 06:54 96 Nasal Cannula 2.0 28 05/11/19 06:54 82 18 100 Nasal Cannula 2.0 28 80 18 96 05/11/19 04:00 97.8 80 19 128/87 (101) 100 05/11/19 03:19 84 18 100 Nasal Cannula 2.0 28 79 18 99 05/11/19 01:22 89 98 05/11/19 00:00 99.0 111 19 158/83 (108) 93 05/10/19 23:30 86 18 100 Nasal Cannula 2.0 28 84 18 99 05/10/19 21:36 100.4 Intake and Output 05/10/19 05/11/19 19:00 07:00 Intake Total 1025.000 ml 412.500 ml Output Total 800 ml 350 ml Balance 225.000 ml 62.500 ml Intake Oral 640 ml IV Total 385.000 ml 412.500 ml Output Urine Total 800 ml 350 ml Microbiology Date/Time Source Procedure Growth Status 05/09/19 00:07 Nasal Nares - Final Complete 05/09/19 00:07 Nasal Nares - Final Complete 05/08/19 23:50 Nasal Nares MRSA Culture - Final NO METHICILLIN RESISTANT STAPH AUREUS... Complete 05/08/19 23:50 Rectum VRE Culture - Final NO VANCOMYCIN RESISTANT ENTEROCOCCUS ... Complete Laboratory Tests 05/10/19 21:50: Vancomycin Level Trough 16.7H 05/11/19 10:15: Calcium Level 10.0 Current Medications Medications (Trade) Dose Ordered Sig/Nidhi Route PRN Reason Start Time Stop Time Status Last Admin Dose Admin Acetaminophen (Tylenol) 650 mg Q4H PRN ORAL Mild Pain/Temp > 100.5 05/10/19 03:30 06/07/19 23:29 05/10/19 21:06 Albuterol/ Ipratropium (Albuterol/ Ipratropium) 3 ml Q4HRT HHN 05/10/19 07:00 05/14/19 10:59 05/11/19 19:17 Amlodipine Besylate (Norvasc) 5 mg DAILY ORAL 05/10/19 09:00 06/09/19 08:59 05/11/19 08:57 Ascorbic Acid (Vitamin C) 250 mg TWICE A DAY ORAL 05/10/19 09:00 06/09/19 08:59 05/11/19 17:15 Donepezil HCl (Aricept) 5 mg QHS ORAL 05/10/19 21:00 06/08/19 20:59 05/11/19 20:26 Heparin Sodium (Porcine) (Heparin 5000 units/ml) 5,000 units EVERY 12 HOURS SUBQ 05/10/19 09:00 06/08/19 20:59 05/11/19 20:32 Levetiracetam (Keppra) 1,500 mg Q12HR ORAL 05/10/19 09:00 06/08/19 20:59 05/11/19 20:26 Multivitamins (Multivitamins) 1 tab DAILY ORAL 05/10/19 09:00 06/09/19 08:59 05/11/19 08:56 Piperacillin Sod/ Tazobactam Sod 3.375 gm/Sodium Chloride 110 ml @ 27.5 mls/hr Q8HR IVPB 05/10/19 06:00 05/16/19 11:59 05/11/19 14:00 Potassium Chloride (K-Dur) 20 meq TWICE A DAY ORAL 05/10/19 09:00 06/09/19 08:59 05/11/19 17:15 Vancomycin HCl (Vanco rx to dose) 1 ea DAILY PRN MISC Per rx protocol 05/10/19 09:00 06/08/19 09:59 Vancomycin HCl 1 gm/Dextrose 275 ml @ 183.708 mls/hr Q12HR@1100,2300 IVPB 05/10/19 11:00 05/14/19 10:59 05/11/19 11:00 Porfirio Daniel MD May 11, 2019 21:02
[2019-05-12] VITALS (7 sets, daily range): BP systolic 126–136; BP diastolic 75–82
[2019-05-12] MEDS: Albuterol/Ipratropium 3ml neb HHN SCH ×5 (02:43→20:42)
[2019-05-12] MEDS: Piperacillin/Tazobactam 3.375 GM in NS 110 ML IVPB SCH ×3 (05:00→22:28)
--- NOTE | 2019-05-12 06:53 | Hematology/Onc Progress Note ---
Assessment/Plan Assessment/Plan # Hypercalcemia r/o malignancy, r/o myeloma, elevated on admission, may be 2/2 dehydration --> Ca 10.2-->9.5, pth is wnl, spep is also wnl as is upep --> on iv fluids as per pcp --> renal eval prn --> pth on prior admission was 42 # Multiple lung nodules -- in 2017 2 cm pleural-based masslike opacity containing multiple nodular calcifications andadjacent parenchymal linear density persists in the anterolateral periphery of thelateral segment right middle lobe, unchanged. Adjacent small nodular parenchymaldensities persist, unchanged. 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 Greatly appreciate consultation! Subjective Allergies: Coded Allergies: PNEUMOCOCCAL VACCINE (Unverified Allergy, Unknown, 10/07/18) Subjective 05/11: remains altered, is on abx, no bleeding, no night sweats, labs reviewed 05/12: noncommunicative, on abx as per id, on 2l nc, imaging noted Objective Objective Current Medications Medications (Trade) Dose Ordered Sig/Nidhi Route PRN Reason Start Time Stop Time Status Last Admin Dose Admin Acetaminophen (Tylenol) 650 mg Q4H PRN ORAL Mild Pain/Temp > 100.5 05/10/19 03:30 06/07/19 23:29 05/10/19 21:06 Albuterol/ Ipratropium (Albuterol/ Ipratropium) 3 ml Q4HRT HHN 05/10/19 07:00 05/14/19 10:59 05/12/19 02:43 Amlodipine Besylate (Norvasc) 5 mg DAILY ORAL 05/10/19 09:00 06/09/19 08:59 12/8/19 08:57 Ascorbic Acid (Vitamin C) 250 mg TWICE A DAY ORAL 05/10/19 09:00 06/09/19 08:59 05/11/19 17:15 Donepezil HCl (Aricept) 5 mg QHS ORAL 05/10/19 21:00 06/08/19 20:59 05/11/19 20:26 Heparin Sodium (Porcine) (Heparin 5000 units/ml) 5,000 units EVERY 12 HOURS SUBQ 05/10/19 09:00 06/08/19 20:59 05/11/19 20:32 Levetiracetam (Keppra) 1,500 mg Q12HR ORAL 05/10/19 09:00 06/08/19 20:59 05/11/19 20:26 Multivitamins (Multivitamins) 1 tab DAILY ORAL 05/10/19 09:00 06/09/19 08:59 05/11/19 08:56 Piperacillin Sod/ Tazobactam Sod 3.375 gm/Sodium Chloride 110 ml @ 27.5 mls/hr Q8HR IVPB 05/10/19 06:00 05/16/19 11:59 05/12/19 05:00 Potassium Chloride (K-Dur) 20 meq TWICE A DAY ORAL 05/10/19 09:00 06/09/19 08:59 05/11/19 17:15 Vancomycin HCl (Vanco rx to dose) 1 ea DAILY PRN MISC Per rx protocol 05/10/19 09:00 06/08/19 09:59 Vancomycin HCl 1 gm/Dextrose 275 ml @ 183.708 mls/hr Q12HR@1100,2300 IVPB 05/10/19 11:00 05/14/19 10:59 05/11/19 22:55 Last 24 Hour Vital Signs Date Time Temp Pulse Resp B/P (MAP) Pulse Ox O2 Delivery O2 Flow Rate FiO2 05/12/19 04:00 98.4 87 22 127/77 (94) 95 05/12/19 02:44 74 18 100 Nasal Cannula 2.0 28 71 18 99 05/12/19 00:00 98.9 82 20 132/78 (96) 96 05/11/19 23:33 73 18 100 Nasal Cannula 2.0 28 69 18 98 05/11/19 21:00 Nasal Cannula 2.0 05/11/19 20:00 98.7 83 20 129/71 (90) 97 05/11/19 19:17 74 18 100 Nasal Cannula 2.0 28 72 18 97 05/11/19 19:17 97 Nasal Cannula 2.0 28 05/11/19 16:00 97.8 85 18 105/72 (83) 98 05/11/19 14:46 72 16 99 Nasal Cannula 2.0 28 68 16 96 05/11/19 12:00 97.6 70 18 133/79 (97) 98 05/11/19 11:12 80 18 100 Nasal Cannula 2.0 28 76 18 97 05/11/19 09:00 Nasal Cannula 2.0 05/11/19 08:57 68 130/81 05/11/19 08:00 97.6 68 18 130/81 (97) 97 05/11/19 06:54 96 Nasal Cannula 2.0 28 05/11/19 06:54 82 18 100 Nasal Cannula 2.0 28 80 18 96 05/11/19 04:00 97.8 80 19 128/87 (101) 100 05/11/19 03:19 84 18 100 Nasal Cannula 2.0 28 79 18 99 05/11/19 01:22 89 98 05/11/19 00:00 99.0 111 19 158/83 (108) 93 05/10/19 23:30 86 18 100 Nasal Cannula 2.0 28 84 18 99 05/10/19 21:36 100.4 05/10/19 21:00 Nasal Cannula 2.0 05/10/19 20:19 97 18 100 Nasal Cannula 2.0 28 96 18 97 05/10/19 20:19 100 Nasal Cannula 2.0 28 05/10/19 20:00 102.0 112 20 132/81 (98) 05/10/19 16:00 98.5 85 18 135/86 (102) 100 05/10/19 15:29 77 20 100 Nasal Cannula 2.0 28 81 20 97 05/10/19 12:00 98.7 81 18 130/82 (98) 100 05/10/19 11:28 79 20 100 Nasal Cannula 2.0 28 76 20 100 05/10/19 09:49 77 128/79 05/10/19 09:00 Nasal Cannula 2.0 05/10/19 08:00 98.6 77 20 128/79 (95) 100 05/10/19 07:53 78 20 100 Nasal Cannula 2.0 28 77 20 100 05/10/19 07:53 100 Nasal Cannula 2.0 28 Intake and Output 05/11/19 05/12/19 18:59 06:59 Intake Total 907.5 ml 1292.500 ml Output Total 800 ml 800 ml Balance 107.5 ml 492.500 ml Intake Oral 880 ml 880 ml IV Total 27.5 ml 412.500 ml Output Urine Total 800 ml 800 ml # Voids 1 # Bowel Movements 1 1 Labs Test 05/10/19 05:49 05/10/19 21:50 05/11/19 10:15 White Blood Count 10.0 K/UL (4.8-10.8) Red Blood Count 4.68 M/UL (4.70-6.10) Hemoglobin 14.5 G/DL (14.2-18.0) Hematocrit 44.7 % (42.0-52.0) Mean Corpuscular Volume 96 FL (80-99) Mean Corpuscular Hemoglobin 30.9 PG (27.0-31.0) Mean Corpuscular Hemoglobin Concent 32.4 G/DL (32.0-36.0) Red Cell Distribution Width 13.6 % (11.6-14.8) Platelet Count 314 K/UL (150-450) Mean Platelet Volume 5.3 FL (6.5-10.1) Neutrophils (%) (Auto) 60.7 % (45.0-75.0) Lymphocytes (%) (Auto) 24.1 % (20.0-45.0) Monocytes (%) (Auto) 11.2 % (1.0-10.0) Eosinophils (%) (Auto) 2.2 % (0.0-3.0) Basophils (%) (Auto) 1.8 % (0.0-2.0) Sodium Level 141 MMOL/L (136-145) Potassium Level 3.1 MMOL/L (3.5-5.1) Chloride Level 104 MMOL/L (98-107) Carbon Dioxide Level 36 MMOL/L (21-32) Anion Gap 1 mmol/L (5-15) Blood Urea Nitrogen 8 mg/dL (7-18) Creatinine 0.9 MG/DL (0.55-1.30) Estimat Glomerular Filtration Rate mL/min (>60) Glucose Level 126 MG/DL (74-106) Calcium Level 8.9 MG/DL (8.5-10.1) 10.0 MG/DL (8.5-10.1) Vancomycin Level Trough 16.7 ug/mL (5.0-12.0) Height (Feet): 5 Height (Inches): 9.00 Weight (Pounds): 175 Ignacio Ponce MD May 12, 2019 06:53
[2019-05-12] MEDS: Heparin 5000 units/ml inj SUBQ SCH ×2 (09:00→21:01)
[2019-05-12] MEDS: Ascorbic Acid 500mg tab ORAL SCH ×2 (09:11→17:10)
--- NOTE | 2019-05-12 10:45 | Diagnostic Imaging Report ---
Indication: Shortness of breath Technique: One view of the chest Comparison: 05/08/2019 Findings: Inspiration is suboptimal, with resultant bilateral basilar atelectatic changes present. Heart size is normal. No definite infiltrates, effusions, or congestion. Findings are unchanged Impression: Hypoventilatory exam with bilateral basilar atelectasis, unchanged over 4 days
[2019-05-12] MEDS: Vancomycin 1 GM in D5W 275 ML IVPB SCH (11:00)
--- NOTE | 2019-05-12 12:38 | Infectious Diseases Prog Note ---
Assessment/Plan Assessment/Plan IMPRESSION: Sepsis with leukocytosis, tachycardia, and lactic acidosis. COPD exacerbation, Attelectasis hypoxemia, hypertension, dementia. RECOMMENDATION: Discontinue vancomycin, Continue Zosyn Subjective ROS Limited/Unobtainable: Yes Constitutional: Denies: fever Neurologic: Reports: confusion, other - left hand mitten Allergies: Coded Allergies: PNEUMOCOCCAL VACCINE (Unverified Allergy, Unknown, 10/07/18) Objective Vital Signs Last 24 Hour Vital Signs Date Time Temp Pulse Resp B/P (MAP) Pulse Ox O2 Delivery O2 Flow Rate FiO2 05/12/19 12:00 98.9 95 20 130/75 (93) 95 05/12/19 09:09 68 129/82 05/12/19 09:00 Nasal Cannula 2.0 05/12/19 08:00 98.4 68 20 129/82 (98) 93 05/12/19 07:30 74 18 100 Nasal Cannula 2.0 28 72 18 97 05/12/19 07:30 97 Nasal Cannula 2.0 28 05/12/19 04:00 98.4 87 22 127/77 (94) 95 05/12/19 02:44 74 18 100 Nasal Cannula 2.0 28 71 18 99 05/12/19 00:00 98.9 82 20 132/78 (96) 96 05/11/19 23:33 73 18 100 Nasal Cannula 2.0 28 69 18 98 05/11/19 21:00 Nasal Cannula 2.0 05/11/19 20:00 98.7 83 20 129/71 (90) 97 05/11/19 19:17 74 18 100 Nasal Cannula 2.0 28 72 18 97 05/11/19 19:17 97 Nasal Cannula 2.0 28 05/11/19 16:00 97.8 85 18 105/72 (83) 98 05/11/19 14:46 72 16 99 Nasal Cannula 2.0 28 68 16 96 Height (Feet): 5 Height (Inches): 9.00 Weight (Pounds): 175 General Appearance: no acute distress HEENT: mucous membranes moist Respiratory/Chest: lungs clear Cardiovascular: normal rate Abdomen: soft, non tender Genitourinary: other - condom catheter Extremities: no edema Neurologic/Psychiatric: disoriented Current Medications Medications (Trade) Dose Ordered Sig/Nidhi Route PRN Reason Start Time Stop Time Status Last Admin Dose Admin Acetaminophen (Tylenol) 650 mg Q4H PRN ORAL Mild Pain/Temp > 100.5 05/10/19 03:30 06/07/19 23:29 05/10/19 21:06 Albuterol/ Ipratropium (Albuterol/ Ipratropium) 3 ml Q4HRT HHN 05/10/19 07:00 05/14/19 10:59 05/12/19 07:33 Amlodipine Besylate (Norvasc) 5 mg DAILY ORAL 05/10/19 09:00 06/09/19 08:59 05/12/19 09:09 Ascorbic Acid (Vitamin C) 250 mg TWICE A DAY ORAL 05/10/19 09:00 06/09/19 08:59 05/12/19 09:11 Donepezil HCl (Aricept) 5 mg QHS ORAL 05/10/19 21:00 06/08/19 20:59 05/11/19 20:26 Heparin Sodium (Porcine) (Heparin 5000 units/ml) 5,000 units EVERY 12 HOURS SUBQ 05/10/19 09:00 06/08/19 20:59 05/11/19 20:32 Levetiracetam (Keppra) 1,500 mg Q12HR ORAL 05/10/19 09:00 06/08/19 20:59 05/12/19 09:08 Multivitamins (Multivitamins) 1 tab DAILY ORAL 05/10/19 09:00 06/09/19 08:59 05/12/19 09:08 Piperacillin Sod/ Tazobactam Sod 3.375 gm/Sodium Chloride 110 ml @ 27.5 mls/hr Q8HR IVPB 05/10/19 06:00 05/16/19 11:59 05/12/19 05:00 Potassium Chloride (K-Dur) 20 meq TWICE A DAY ORAL 05/10/19 09:00 06/09/19 08:59 05/12/19 09:08 Vancomycin HCl (Vanco rx to dose) 1 ea DAILY PRN MISC Per rx protocol 05/10/19 09:00 06/08/19 09:59 Vancomycin HCl 1 gm/Dextrose 275 ml @ 183.708 mls/hr Q12HR@1100,2300 IVPB 05/10/19 11:00 05/14/19 10:59 05/12/19 11:00 Curtis Farah MD May 12, 2019 12:38
--- NOTE | 2019-05-12 13:33 | Surgery Progress Note ---
Surgery Progress Note Subjective Additional Comments no acute events comfortable tolerating feeds Objective Last 24 Hour Vital Signs Date Time Temp Pulse Resp B/P (MAP) Pulse Ox O2 Delivery O2 Flow Rate FiO2 05/12/19 12:00 98.9 95 20 130/75 (93) 95 05/12/19 09:09 68 129/82 05/12/19 09:00 Nasal Cannula 2.0 05/12/19 08:00 98.4 68 20 129/82 (98) 93 05/12/19 07:30 74 18 100 Nasal Cannula 2.0 28 72 18 97 05/12/19 07:30 97 Nasal Cannula 2.0 28 05/12/19 04:00 98.4 87 22 127/77 (94) 95 05/12/19 02:44 74 18 100 Nasal Cannula 2.0 28 71 18 99 05/12/19 00:00 98.9 82 20 132/78 (96) 96 05/11/19 23:33 73 18 100 Nasal Cannula 2.0 28 69 18 98 05/11/19 21:00 Nasal Cannula 2.0 05/11/19 20:00 98.7 83 20 129/71 (90) 97 05/11/19 19:17 74 18 100 Nasal Cannula 2.0 28 72 18 97 05/11/19 19:17 97 Nasal Cannula 2.0 28 05/11/19 16:00 97.8 85 18 105/72 (83) 98 05/11/19 14:46 72 16 99 Nasal Cannula 2.0 28 68 16 96 I&O Intake and Output 05/11/19 05/12/19 19:00 07:00 Intake Total 907.5 ml 1292.500 ml Output Total 800 ml 800 ml Balance 107.5 ml 492.500 ml Intake Oral 880 ml 880 ml IV Total 27.5 ml 412.500 ml Output Urine Total 800 ml 800 ml # Voids 1 # Bowel Movements 1 1 Dressing: saturated, other Wound: other Drains: other Cardiovascular: RSR Respiratory: decreased breath sounds Abdomen: soft, present bowel sounds, non-distended Extremities: no cyanosis, other Plan Problems: (1) Decubitus skin ulcer Assessment & Plan: Pt presented on admission with resolving pressure injuries sacrum R heel. Resolving full thickness sacral pressure injury. Beefy red granulation with small amt Biofilm at base of wound (L)1cm x (W)1.5cm x(D)0.2cm ,with surrounding pink epithelial(L)3.5cm x (W)3cm.No odor or exudate noted. Loose dry eschar noted to R heel (L)0.8cm x (W)3.5cm. Easily removed with friction. R heel is boggy with non-blanching erythema. Historical surgical scar noted to R hip. L heel boggy with non-blanching erythema. No other skin concerns noted. Pt requires extensive asst with bed mobility and is at high risks for skin breakdown. Both hips and both heels padded with Optifoam drsg to minimize friction on skin. Pt positioned on side with pillow and both heels floated with pillows off bed. Tx.Plan: Apply Moisture Barrier Paste to Sacrum. Cover with Optifoam drsg. Change every 3 days and prn. Apply Cavilon Skin Barrier to Both heels. Cover each heel with Optifoam drsg. Change every 7 days and prn. Reposition at least every 2 hours or as tolerated. Off-load heels with pillow. (2) Leukocytosis (3) Severe sepsis Assessment & Plan: leukocytosis - resolved lactic acidosis - resolved abnormal labs cxr noted exam as above on IV abx trend labs cont with current care thank you (4) Protein-calorie malnutrition, severe Assessment & Plan: DAILY ESTIMATED NEEDS: Needs based on Pulmonary, wounds; 74.5kg 25-35 kcals/kg 1863- 2608 total kcals 1.25-1.5 g protein/kg 93- 112 g total protein 25-30 mL/kg 6718-9224 total fluid mLs NUTRITION DIAGNOSIS: 1. Increased pro needs r/t wound healing AEB pt adm w/ r heel unstageable Sacral partial thickness wounds per EMR, WC eval pending. 2. Swallowing difficulty r/t dysphagia AEB diet SOAP TENDER regular, puree, thin liquids- QA LEAD eval pending. CURRENT DIET:NPO PO DIET RECOMMENDATIONS: Regular, texture per QA LEAD ----> WHEN APPROPRIATE ADDITIONAL RECOMMENDATIONS: * F/up w/ WC eval W/ diet addd Hai in 8oz H2O BID + Vit C 250mmg BID + MVI w/ min qd * F/up w/ QA LEAD for appropriate texture -> w/ need for supplements, rec Ensure Enlive. * Obtain calibrated bed scale wts * Consult RD fo TF recs if needed, if part of POC (5) Lung mass Assessment & Plan: 2 cm pleural-based masslike opacity containing multiple nodular calcifications andadjacent parenchymal linear density persists in the anterolateral periphery of thelateral segment right middle lobe, unchanged. Adjacent small nodular parenchymaldensities persist, unchanged. Small irregular pleural-based linear densities persist in the dependent portions of both lung bases, unchanged. No new pulmonary parenchymal abnormality demonstrated. No pleural disease is evident. Nodularcalcification in right hilum unchanged. Clustered calcified nodules in the subcarinal region of mediastinum unchanged. No new mediastinal or hilar enlarged lymph nodes. Heart remains normal in size. No pericardial abnormality. Centralmediastinal vasculature remains unremarkable in appearance. noted prior in 2017. no path available cxr noted may repeat CT chest once improving (6) Lactic acid acidosis Gabino Little May 12, 2019 13:33
[2019-05-12] MEDS ORDERED: NS 275ml ONE (15:45)
--- NOTE | 2019-05-12 20:11 | General Progress Note ---
Assessment/Plan Problem List: (1) Dyspnea ICD Codes: R06.00 - Dyspnea, unspecified SNOMED: 018792561 Qualifiers: Qualified Codes: R06.00 - Dyspnea, unspecified (2) Protein-calorie malnutrition, severe ICD Codes: E43 - Unspecified severe protein-calorie malnutrition SNOMED: 484611634 (3) Decubitus skin ulcer ICD Codes: L89.90 - Pressure ulcer of unspecified site, unspecified stage SNOMED: 023984683 (4) Hypoxia ICD Codes: R09.02 - Hypoxemia SNOMED: 869525514 (5) Dehydration ICD Codes: E86.0 - Dehydration SNOMED: 09055937 Status: progressing Assessment/Plan: resp insuff pna abx per id improving afebrile reviewed chart and labs Subjective ROS Limited/Unobtainable: Yes Allergies: Coded Allergies: PNEUMOCOCCAL VACCINE (Unverified Allergy, Unknown, 10/07/18) Objective Last 24 Hour Vital Signs Date Time Temp Pulse Resp B/P (MAP) Pulse Ox O2 Delivery O2 Flow Rate FiO2 05/12/19 16:00 98.3 98 20 136/82 (100) 98 05/12/19 14:10 74 18 100 Nasal Cannula 2.0 28 70 18 96 05/12/19 12:00 98.9 95 20 130/75 (93) 95 05/12/19 09:09 68 129/82 05/12/19 09:00 Nasal Cannula 2.0 05/12/19 08:00 98.4 68 20 129/82 (98) 93 05/12/19 07:30 74 18 100 Nasal Cannula 2.0 28 72 18 97 05/12/19 07:30 97 Nasal Cannula 2.0 28 05/12/19 04:00 98.4 87 22 127/77 (94) 95 05/12/19 02:44 74 18 100 Nasal Cannula 2.0 28 71 18 99 05/12/19 00:00 98.9 82 20 132/78 (96) 96 05/11/19 23:33 73 18 100 Nasal Cannula 2.0 28 69 18 98 05/11/19 21:00 Nasal Cannula 2.0 Intake and Output 05/11/19 05/12/19 19:00 07:00 Intake Total 907.5 ml 1292.500 ml Output Total 800 ml 800 ml Balance 107.5 ml 492.500 ml Intake Oral 880 ml 880 ml IV Total 27.5 ml 412.500 ml Output Urine Total 800 ml 800 ml # Voids 1 # Bowel Movements 1 1 Height (Feet): 5 Height (Inches): 9.00 Weight (Pounds): 175 Cardiovascular: regular rhythm Abdomen: soft, no organomegaly Konrad Soares MD May 12, 2019 20:11
[2019-05-12] MEDS: Donepezil 5mg Tab ORAL SCH (21:00)
--- NOTE | 2019-05-12 21:21 | Pulmonology Progress Note ---
Assessment/Plan Assessment/Plan Pulmonary Progress Note HPI Patient is a 69 year old male [facility] patient with history of Chronic Obstructive Pulmonary Disease, Chronic Granulomatous Disease, Hypertension, Renal Myolipoma, history of seizures, dementia, encephalopathy, Diverticulosis, noncommunicative, admitted with respiratory distress, patient found to be hypoxic, congested, and more altered. No other history available. Less short of breath, comfortable, passed swallow evaluation, AB per ID CXR basal atelectasis Allergies: PNEUMOCOCCAL VACCINE Past Medical History: Chronic Obstructive Pulmonary Disease, Chronic Granulomatous Disease, Hypertension, Diverticulosis, Renal Myolipoma, history of Seizures, history of Dementia, encephalopathy All Other Systems: limited - Not communicative Physical Exam Vital Signs Noted General Appearance: moderate distress, thin, Chronically Ill appearing Head: normocephalic, atraumatic Eyes: bilateral eye PERRL, bilateral eye EOMI ENT: uvula midline, dry mucus membranes Neck: supple, thyroid normal, supple/symm/no masses Respiratory: CTAB Cardiovascular: normal peripheral pulses, HS1, HS2, RRR, no edema, no gallop, no murmur, tachycardia Gastrointestinal: non tender, soft, no guarding, no rebound Musculoskeletal: normal inspection Neurologic: awake, chronically altered Skin: no rash, warm/dry Impression: Chronic obstructive pulmonary disease Healthcare-associated pneumonia Dyspnea, Hypoxia Dehydration Chronic Granulomatous Disease Hypertension Diverticulosis Renal Myolipoma History of Seizures History of Dementia Chronic Encephalopathy ER Course - IV Antibiotics - HHN - O2 PRN - PTAMedications - Aspiration precautions - PPX - IVF - Monitor labs Laboratory Tests Noted EKG: Rate: 102 Rhythm: other - Sinus tachycardia Chest X-Ray: Hypoventilatory exam Subjective ROS Limited/Unobtainable: No Allergies: Coded Allergies: PNEUMOCOCCAL VACCINE (Unverified Allergy, Unknown, 10/07/18) Objective Last 24 Hour Vital Signs Date Time Temp Pulse Resp B/P (MAP) Pulse Ox O2 Delivery O2 Flow Rate FiO2 05/12/19 20:00 94 20 94 Nasal Cannula 2.0 28 91 20 92 05/12/19 20:00 92 Nasal Cannula 2.0 28 05/12/19 16:00 98.3 98 20 136/82 (100) 98 05/12/19 14:10 74 18 100 Nasal Cannula 2.0 28 70 18 96 05/12/19 12:00 98.9 95 20 130/75 (93) 95 05/12/19 09:09 68 129/82 05/12/19 09:00 Nasal Cannula 2.0 05/12/19 08:00 98.4 68 20 129/82 (98) 93 05/12/19 07:30 74 18 100 Nasal Cannula 2.0 28 72 18 97 05/12/19 07:30 97 Nasal Cannula 2.0 28 05/12/19 04:00 98.4 87 22 127/77 (94) 95 05/12/19 02:44 74 18 100 Nasal Cannula 2.0 28 71 18 99 05/12/19 00:00 98.9 82 20 132/78 (96) 96 05/11/19 23:33 73 18 100 Nasal Cannula 2.0 28 69 18 98 Intake and Output 05/11/19 05/12/19 19:00 07:00 Intake Total 907.5 ml 1292.500 ml Output Total 800 ml 800 ml Balance 107.5 ml 492.500 ml Intake Oral 880 ml 880 ml IV Total 27.5 ml 412.500 ml Output Urine Total 800 ml 800 ml # Voids 1 # Bowel Movements 1 1 Current Medications Medications (Trade) Dose Ordered Sig/Nidhi Route PRN Reason Start Time Stop Time Status Last Admin Dose Admin Acetaminophen (Tylenol) 650 mg Q4H PRN ORAL Mild Pain/Temp > 100.5 05/10/19 03:30 06/07/19 23:29 05/10/19 21:06 Albuterol/ Ipratropium (Albuterol/ Ipratropium) 3 ml Q4HRT HHN 05/10/19 07:00 05/14/19 10:59 05/12/19 20:42 Amlodipine Besylate (Norvasc) 5 mg DAILY ORAL 05/10/19 09:00 06/09/19 08:59 05/12/19 09:09 Ascorbic Acid (Vitamin C) 250 mg TWICE A DAY ORAL 05/10/19 09:00 06/09/19 08:59 05/12/19 17:10 Donepezil HCl (Aricept) 5 mg QHS ORAL 05/10/19 21:00 06/08/19 20:59 05/12/19 21:00 Heparin Sodium (Porcine) (Heparin 5000 units/ml) 5,000 units EVERY 12 HOURS SUBQ 05/10/19 09:00 06/08/19 20:59 05/12/19 21:01 Levetiracetam (Keppra) 1,500 mg Q12HR ORAL 05/10/19 09:00 06/08/19 20:59 05/12/19 21:00 Multivitamins (Multivitamins) 1 tab DAILY ORAL 05/10/19 09:00 06/09/19 08:59 05/12/19 09:08 Piperacillin Sod/ Tazobactam Sod 3.375 gm/Sodium Chloride 110 ml @ 27.5 mls/hr Q8HR IVPB 05/10/19 06:00 05/16/19 11:59 05/12/19 14:00 Potassium Chloride (K-Dur) 20 meq TWICE A DAY ORAL 05/10/19 09:00 06/09/19 08:59 05/12/19 17:10 Porfirio Daniel MD May 12, 2019 21:21
[2019-05-13] VITALS: BP 136/77
[2019-05-13] MEDS: Albuterol/Ipratropium 3ml neb HHN SCH ×7 (00:07→23:56)
[2019-05-13 04:00] VITALS: BP 150/78
[2019-05-13] MEDS: Piperacillin/Tazobactam 3.375 GM in NS 110 ML IVPB SCH ×3 (05:09→22:18)
[2019-05-13 06:39] LABS: BASOPHILS % (AUTO) 1.3 % (0.0-2.0); EOSINOPHILS % (AUTO) 1.1 % (0.0-3.0); HEMATOCRIT 47.9 % (42.0-52.0); HEMOGLOBIN 15.6 G/DL (14.2-18.0); LYMPHOCYTES % (AUTO) 14.8 % (20.0-45.0); MEAN CORPUSCULAR VOLUME 96 FL (80-99); MONOCYTES % (AUTO) 9.1 % (1.0-10.0); NEUTROPHILS % (AUTO) 73.7 % (45.0-75.0); PLATELET COUNT 291 K/UL (150-450); RED BLOOD COUNT 4.97 M/UL (4.70-6.10); RED CELL DISTRIBUTION WIDTH 13.8 % (11.6-14.8); WHITE BLOOD COUNT 10.9 K/UL (4.8-10.8)
--- NOTE | 2019-05-13 06:47 | Hematology/Onc Progress Note ---
Assessment/Plan Assessment/Plan # Hypercalcemia r/o malignancy, r/o myeloma, elevated on admission, may be 2/2 dehydration --> Ca 10.2-->9.5, pth is wnl, spep is also wnl as is upep --> on iv fluids as per pcp --> renal eval prn --> pth on prior admission was 42 # Multiple lung nodules -- in 2017 2 cm pleural-based masslike opacity containing multiple nodular calcifications andadjacent parenchymal linear density persists in the anterolateral periphery of thelateral segment right middle lobe, unchanged. Adjacent small nodular parenchymaldensities persist, unchanged. 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 Greatly appreciate consultation! Subjective HEENT: Denies: no symptoms, eye pain, blurred vision, tearing, double vision, ear pain, ear discharge, nose pain, nose congestion, throat pain, throat swelling, mouth pain, mouth swelling, other Cardiovascular: Denies: no symptoms, chest pain, edema, irregular heart rate, lightheadedness, palpitations, syncope, other Respiratory: Denies: no symptoms, cough, shortness of breath, SOB with excertion, SOB at rest, sputum, wheezing, other Gastrointestinal/Abdominal: Denies: no symptoms, abdomen distended, abdominal pain, black stools, tarry stools, blood in stool, constipated, diarrhea, difficulty swallowing, nausea, poor appetite, poor fluid intake, rectal bleeding , vomiting, other Genitourinary: Denies: no symptoms, burning, discharge, frequency, flank pain, hematuria, incontinence, pain, urgency, other Neurologic/Psychiatric: Denies: no symptoms, anxiety, depressed, emotional problems, headache, numbness, paresthesia, pre-existing deficit, seizure, tingling, tremors, weakness, other Endocrine: Denies: no symptoms, excessive sweating, flushing, intolerance to cold, intolerance to heat, increased hunger, increased thirst, increased urine, unexplained weight gain, unexplained weight loss, other Allergies: Coded Allergies: PNEUMOCOCCAL VACCINE (Unverified Allergy, Unknown, 10/07/18) All Systems: reviewed and negative except above Subjective 05/11: remains altered, is on abx, no bleeding, no night sweats, labs reviewed 05/12: noncommunicative, on abx as per id, on 2l nc, imaging noted 05/13: continues to be somewhat confused, on 2l nc, no bleeding Objective Objective Current Medications Medications (Trade) Dose Ordered Sig/Nidhi Route PRN Reason Start Time Stop Time Status Last Admin Dose Admin Acetaminophen (Tylenol) 650 mg Q4H PRN ORAL Mild Pain/Temp > 100.5 05/10/19 03:30 06/07/19 23:29 05/10/19 21:06 Albuterol/ Ipratropium (Albuterol/ Ipratropium) 3 ml Q4HRT HHN 05/10/19 07:00 05/14/19 10:59 05/13/19 02:37 Amlodipine Besylate (Norvasc) 5 mg DAILY ORAL 05/10/19 09:00 06/09/19 08:59 05/12/19 09:09 Ascorbic Acid (Vitamin C) 250 mg TWICE A DAY ORAL 05/10/19 09:00 06/09/19 08:59 05/12/19 17:10 Donepezil HCl (Aricept) 5 mg QHS ORAL 05/10/19 21:00 06/08/19 20:59 05/12/19 21:00 Heparin Sodium (Porcine) (Heparin 5000 units/ml) 5,000 units EVERY 12 HOURS SUBQ 05/10/19 09:00 06/08/19 20:59 05/12/19 21:01 Levetiracetam (Keppra) 1,500 mg Q12HR ORAL 05/10/19 09:00 06/08/19 20:59 05/12/19 21:00 Multivitamins (Multivitamins) 1 tab DAILY ORAL 05/10/19 09:00 06/09/19 08:59 05/12/19 09:08 Piperacillin Sod/ Tazobactam Sod 3.375 gm/Sodium Chloride 110 ml @ 27.5 mls/hr Q8HR IVPB 05/10/19 06:00 05/16/19 11:59 05/13/19 05:09 Potassium Chloride (K-Dur) 20 meq TWICE A DAY ORAL 05/10/19 09:00 06/09/19 08:59 05/12/19 17:10 Last 24 Hour Vital Signs Date Time Temp Pulse Resp B/P (MAP) Pulse Ox O2 Delivery O2 Flow Rate FiO2 05/13/19 04:00 98.3 65 22 150/78 (102) 97 05/13/19 02:38 86 20 96 Nasal Cannula 2.0 28 84 20 93 05/13/19 00:00 98.4 100 18 136/77 (96) 97 05/13/19 00:00 90 20 95 Nasal Cannula 2.0 28 88 20 94 05/12/19 21:29 98.0 92 16 126/79 (95) 97 05/12/19 21:28 Nasal Cannula 2.0 05/12/19 20:00 98.0 92 16 126/79 (95) 97 05/12/19 20:00 94 20 94 Nasal Cannula 2.0 28 91 20 92 05/12/19 20:00 92 Nasal Cannula 2.0 28 05/12/19 16:00 98.3 98 20 136/82 (100) 98 05/12/19 14:10 74 18 100 Nasal Cannula 2.0 28 70 18 96 05/12/19 12:00 98.9 95 20 130/75 (93) 95 05/12/19 09:09 68 129/82 05/12/19 09:00 Nasal Cannula 2.0 05/12/19 08:00 98.4 68 20 129/82 (98) 93 05/12/19 07:30 74 18 100 Nasal Cannula 2.0 28 72 18 97 05/12/19 07:30 97 Nasal Cannula 2.0 28 05/12/19 04:00 98.4 87 22 127/77 (94) 95 05/12/19 02:44 74 18 100 Nasal Cannula 2.0 28 71 18 99 05/12/19 00:00 98.9 82 20 132/78 (96) 96 05/11/19 23:33 73 18 100 Nasal Cannula 2.0 28 69 18 98 05/11/19 21:00 Nasal Cannula 2.0 05/11/19 20:00 98.7 83 20 129/71 (90) 97 05/11/19 19:17 74 18 100 Nasal Cannula 2.0 28 72 18 97 05/11/19 19:17 97 Nasal Cannula 2.0 28 05/11/19 16:00 97.8 85 18 105/72 (83) 98 05/11/19 14:46 72 16 99 Nasal Cannula 2.0 28 68 16 96 05/11/19 12:00 97.6 70 18 133/79 (97) 98 05/11/19 11:12 80 18 100 Nasal Cannula 2.0 28 76 18 97 05/11/19 09:00 Nasal Cannula 2.0 05/11/19 08:57 68 130/81 05/11/19 08:00 97.6 68 18 130/81 (97) 97 05/11/19 06:54 96 Nasal Cannula 2.0 28 05/11/19 06:54 82 18 100 Nasal Cannula 2.0 28 80 18 96 Intake and Output 05/12/19 05/13/19 18:59 06:59 Intake Total 480 ml Output Total 300 ml Balance 180 ml Intake Oral 480 ml Output Urine Total 300 ml # Voids 4 # Bowel Movements 1 Labs Test 05/10/19 21:50 05/11/19 10:15 05/13/19 05:50 Vancomycin Level Trough 16.7 ug/mL (5.0-12.0) Calcium Level 10.0 MG/DL (8.5-10.1) Height (Feet): 5 Height (Inches): 9.00 Weight (Pounds): 175 Objective GeN: nad, obese Pulm: ctab, no cwr CV: rrr, no mgr Abd: soft, nt, nd Ext: no cce Ignacio Ponce MD May 13, 2019 06:47
[2019-05-13 07:12] LABS: ANION GAP 10 mmol/L (5-15); BLOOD UREA NITROGEN 7 mg/dL (7-18); CALCIUM 10.6 MG/DL (8.5-10.1); CARBON DIOXIDE 29 MMOL/L (21-32); CHLORIDE 105 MMOL/L (98-107); CREATININE 1.1 MG/DL (0.55-1.30); POTASSIUM 4.2 MMOL/L (3.5-5.1); SODIUM 144 MMOL/L (136-145)
[2019-05-13 08:00] VITALS: BP 130/83
[2019-05-13] MEDS: Ascorbic Acid 500mg tab ORAL SCH ×2 (09:27→17:14)
[2019-05-13] MEDS: Heparin 5000 units/ml inj SUBQ SCH ×2 (10:26→21:26)
[2019-05-13 12:00] VITALS: BP 122/77
--- NOTE | 2019-05-13 12:27 | Infectious Diseases Prog Note ---
Assessment/Plan Assessment/Plan IMPRESSION: Sepsis with leukocytosis, tachycardia, and lactic acidosis. COPD exacerbation, Atelectasis hypoxemia, hypertension, dementia. RECOMMENDATION: Continue Zosyn Subjective ROS Limited/Unobtainable: Yes Constitutional: Denies: fever Neurologic: Reports: other - shaking in right side of body Allergies: Coded Allergies: PNEUMOCOCCAL VACCINE (Unverified Allergy, Unknown, 10/07/18) Objective Vital Signs Last 24 Hour Vital Signs Date Time Temp Pulse Resp B/P (MAP) Pulse Ox O2 Delivery O2 Flow Rate FiO2 05/13/19 11:39 82 20 99 Nasal Cannula 2.0 28 84 20 97 05/13/19 09:28 76 130/83 05/13/19 08:45 Nasal Cannula 2.0 05/13/19 08:00 97.9 76 20 130/83 (99) 100 05/13/19 07:31 81 20 99 Nasal Cannula 2.0 28 79 20 97 05/13/19 07:30 97 Nasal Cannula 2.0 28 05/13/19 04:00 98.3 65 22 150/78 (102) 97 05/13/19 02:38 86 20 96 Nasal Cannula 2.0 28 84 20 93 05/13/19 00:00 98.4 100 18 136/77 (96) 97 05/13/19 00:00 90 20 95 Nasal Cannula 2.0 28 88 20 94 05/12/19 21:29 98.0 92 16 126/79 (95) 97 05/12/19 21:28 Nasal Cannula 2.0 05/12/19 20:00 98.0 92 16 126/79 (95) 97 05/12/19 20:00 94 20 94 Nasal Cannula 2.0 28 91 20 92 05/12/19 20:00 92 Nasal Cannula 2.0 28 05/12/19 16:00 98.3 98 20 136/82 (100) 98 05/12/19 14:10 74 18 100 Nasal Cannula 2.0 28 70 18 96 Height (Feet): 5 Height (Inches): 9.00 Weight (Pounds): 175 General Appearance: no acute distress HEENT: mucous membranes moist Respiratory/Chest: lungs clear Cardiovascular: normal rate Abdomen: soft, non tender Extremities: no edema Neurologic/Psychiatric: other - poorly responsive Laboratory Tests Test 05/13/19 05:50 White Blood Count 10.9 K/UL (4.8-10.8) H Red Blood Count 4.97 M/UL (4.70-6.10) Hemoglobin 15.6 G/DL (14.2-18.0) Hematocrit 47.9 % (42.0-52.0) Mean Corpuscular Volume 96 FL (80-99) Mean Corpuscular Hemoglobin 31.5 PG (27.0-31.0) H Mean Corpuscular Hemoglobin Concent 32.6 G/DL (32.0-36.0) Red Cell Distribution Width 13.8 % (11.6-14.8) Platelet Count 291 K/UL (150-450) Mean Platelet Volume 5.7 FL (6.5-10.1) L Neutrophils (%) (Auto) 73.7 % (45.0-75.0) Lymphocytes (%) (Auto) 14.8 % (20.0-45.0) L Monocytes (%) (Auto) 9.1 % (1.0-10.0) Eosinophils (%) (Auto) 1.1 % (0.0-3.0) Basophils (%) (Auto) 1.3 % (0.0-2.0) Sodium Level 144 MMOL/L (136-145) Potassium Level 4.2 MMOL/L (3.5-5.1) Chloride Level 105 MMOL/L (98-107) Carbon Dioxide Level 29 MMOL/L (21-32) Anion Gap 10 mmol/L (5-15) Blood Urea Nitrogen 7 mg/dL (7-18) Creatinine 1.1 MG/DL (0.55-1.30) Estimat Glomerular Filtration Rate mL/min (>60) Glucose Level 96 MG/DL (74-106) Calcium Level 10.6 MG/DL (8.5-10.1) H Current Medications Medications (Trade) Dose Ordered Sig/Nidhi Route PRN Reason Start Time Stop Time Status Last Admin Dose Admin Acetaminophen (Tylenol) 650 mg Q4H PRN ORAL Mild Pain/Temp > 100.5 05/10/19 03:30 06/07/19 23:29 05/10/19 21:06 Albuterol/ Ipratropium (Albuterol/ Ipratropium) 3 ml Q4HRT HHN 05/10/19 07:00 05/14/19 10:59 05/13/19 11:40 Amlodipine Besylate (Norvasc) 5 mg DAILY ORAL 05/10/19 09:00 06/09/19 08:59 05/13/19 09:28 Ascorbic Acid (Vitamin C) 250 mg TWICE A DAY ORAL 05/10/19 09:00 06/09/19 08:59 05/13/19 09:27 Donepezil HCl (Aricept) 5 mg QHS ORAL 05/10/19 21:00 06/08/19 20:59 05/12/19 21:00 Heparin Sodium (Porcine) (Heparin 5000 units/ml) 5,000 units EVERY 12 HOURS SUBQ 05/10/19 09:00 06/08/19 20:59 05/13/19 10:26 Levetiracetam (Keppra) 1,500 mg Q12HR ORAL 05/10/19 09:00 06/08/19 20:59 05/13/19 09:28 Multivitamins (Multivitamins) 1 tab DAILY ORAL 05/10/19 09:00 06/09/19 08:59 05/13/19 09:27 Piperacillin Sod/ Tazobactam Sod 3.375 gm/Sodium Chloride 110 ml @ 27.5 mls/hr Q8HR IVPB 05/10/19 06:00 05/16/19 11:59 05/13/19 05:09 Potassium Chloride (K-Dur) 20 meq TWICE A DAY ORAL 05/10/19 09:00 06/09/19 08:59 05/13/19 09:28 Curtis Farah MD May 13, 2019 12:27
[2019-05-13 16:00] VITALS: BP 105/66
[2019-05-13 20:00] VITALS: BP 143/82
--- NOTE | 2019-05-13 20:59 | Surgery Progress Note ---
Surgery Progress Note Subjective Additional Comments Patient seen and examined bedside. No acute events. Remains somewhat confused. No nausea vomiting fever chills. Labs noted. Chest x-ray noted. Slowly improving Objective Last 24 Hour Vital Signs Date Time Temp Pulse Resp B/P (MAP) Pulse Ox O2 Delivery O2 Flow Rate FiO2 05/13/19 20:03 95 Nasal Cannula 2.0 28 05/13/19 20:00 97.8 64 18 143/82 (102) 97 05/13/19 19:58 76 20 99 Nasal Cannula 2.0 28 72 20 95 05/13/19 16:00 98.9 87 18 105/66 (79) 98 05/13/19 15:25 78 20 99 Nasal Cannula 2.0 28 69 20 96 05/13/19 12:00 97.3 85 20 122/77 (92) 98 05/13/19 11:39 82 20 99 Nasal Cannula 2.0 28 84 20 97 05/13/19 09:28 76 130/83 05/13/19 09:00 Nasal Cannula 2.0 05/13/19 08:45 Nasal Cannula 2.0 05/13/19 08:00 97.9 76 20 130/83 (99) 100 05/13/19 07:31 81 20 99 Nasal Cannula 2.0 28 79 20 97 05/13/19 07:30 97 Nasal Cannula 2.0 28 05/13/19 04:00 98.3 65 22 150/78 (102) 97 05/13/19 02:38 86 20 96 Nasal Cannula 2.0 28 84 20 93 05/13/19 00:00 98.4 100 18 136/77 (96) 97 05/13/19 00:00 90 20 95 Nasal Cannula 2.0 28 88 20 94 05/12/19 21:29 98.0 92 16 126/79 (95) 97 05/12/19 21:28 Nasal Cannula 2.0 I&O Intake and Output 05/12/19 05/13/19 19:00 07:00 Intake Total 480 ml Output Total 300 ml Balance 180 ml Intake Oral 480 ml Output Urine Total 300 ml # Voids 4 # Bowel Movements 1 Dressing: other Wound: other Drains: other Cardiovascular: RSR Respiratory: decreased breath sounds Abdomen: soft, present bowel sounds, non-distended Extremities: no cyanosis, other Laboratory Tests Test 05/13/19 05:50 White Blood Count 10.9 K/UL (4.8-10.8) H Red Blood Count 4.97 M/UL (4.70-6.10) Hemoglobin 15.6 G/DL (14.2-18.0) Hematocrit 47.9 % (42.0-52.0) Mean Corpuscular Volume 96 FL (80-99) Mean Corpuscular Hemoglobin 31.5 PG (27.0-31.0) H Mean Corpuscular Hemoglobin Concent 32.6 G/DL (32.0-36.0) Red Cell Distribution Width 13.8 % (11.6-14.8) Platelet Count 291 K/UL (150-450) Mean Platelet Volume 5.7 FL (6.5-10.1) L Neutrophils (%) (Auto) 73.7 % (45.0-75.0) Lymphocytes (%) (Auto) 14.8 % (20.0-45.0) L Monocytes (%) (Auto) 9.1 % (1.0-10.0) Eosinophils (%) (Auto) 1.1 % (0.0-3.0) Basophils (%) (Auto) 1.3 % (0.0-2.0) Sodium Level 144 MMOL/L (136-145) Potassium Level 4.2 MMOL/L (3.5-5.1) Chloride Level 105 MMOL/L (98-107) Carbon Dioxide Level 29 MMOL/L (21-32) Anion Gap 10 mmol/L (5-15) Blood Urea Nitrogen 7 mg/dL (7-18) Creatinine 1.1 MG/DL (0.55-1.30) Estimat Glomerular Filtration Rate mL/min (>60) Glucose Level 96 MG/DL (74-106) Calcium Level 10.6 MG/DL (8.5-10.1) H Plan Problems: (1) Decubitus skin ulcer Assessment & Plan: Pt presented on admission with resolving pressure injuries sacrum R heel. Resolving full thickness sacral pressure injury. Beefy red granulation with small amt Biofilm at base of wound (L)1cm x (W)1.5cm x(D)0.2cm ,with surrounding pink epithelial(L)3.5cm x (W)3cm.No odor or exudate noted. Loose dry eschar noted to R heel (L)0.8cm x (W)3.5cm. Easily removed with friction. R heel is boggy with non-blanching erythema. Historical surgical scar noted to R hip. L heel boggy with non-blanching erythema. No other skin concerns noted. Pt requires extensive asst with bed mobility and is at high risks for skin breakdown. Both hips and both heels padded with Optifoam drsg to minimize friction on skin. Pt positioned on side with pillow and both heels floated with pillows off bed. Tx.Plan: Apply Moisture Barrier Paste to Sacrum. Cover with Optifoam drsg. Change every 3 days and prn. Apply Cavilon Skin Barrier to Both heels. Cover each heel with Optifoam drsg. Change every 7 days and prn. Reposition at least every 2 hours or as tolerated. Off-load heels with pillow. (2) Leukocytosis (3) Severe sepsis Assessment & Plan: leukocytosis - resolved lactic acidosis - resolved abnormal labs cxr noted exam as above on IV abx trend labs cont with current care thank you (4) Protein-calorie malnutrition, severe Assessment & Plan: DAILY ESTIMATED NEEDS: Needs based on Pulmonary, wounds; 74.5kg 25-35 kcals/kg 1863- 2608 total kcals 1.25-1.5 g protein/kg 93- 112 g total protein 25-30 mL/kg 3537-9541 total fluid mLs NUTRITION DIAGNOSIS: 1. Increased pro needs r/t wound healing AEB pt adm w/ r heel unstageable Sacral partial thickness wounds per EMR, WC eval pending. 2. Swallowing difficulty r/t dysphagia AEB diet [employer] regular, puree, thin liquids- [employer] eval pending. CURRENT DIET:NPO PO DIET RECOMMENDATIONS: Regular, texture per [employer] ----> WHEN APPROPRIATE ADDITIONAL RECOMMENDATIONS: * F/up w/ WC eval W/ diet addd Hai in 8oz H2O BID + Vit C 250mmg BID + MVI w/ min qd * F/up w/ [employer] for appropriate texture -> w/ need for supplements, rec Ensure Enlive. * Obtain calibrated bed scale wts * Consult RD fo TF recs if needed, if part of POC (5) Lung mass Assessment & Plan: 2 cm pleural-based masslike opacity containing multiple nodular calcifications andadjacent parenchymal linear density persists in the anterolateral periphery of thelateral segment right middle lobe, unchanged. Adjacent small nodular parenchymaldensities persist, unchanged. Small irregular pleural-based linear densities persist in the dependent portions of both lung bases, unchanged. No new pulmonary parenchymal abnormality demonstrated. No pleural disease is evident. Nodularcalcification in right hilum unchanged. Clustered calcified nodules in the subcarinal region of mediastinum unchanged. No new mediastinal or hilar enlarged lymph nodes. Heart remains normal in size. No pericardial abnormality. Centralmediastinal vasculature remains unremarkable in appearance. noted prior in 2017. no path available cxr noted may repeat CT chest once improving (6) Lactic acid acidosis Gabino Little May 13, 2019 20:59
--- NOTE | 2019-05-13 21:10 | General Progress Note ---
Assessment/Plan Problem List: (1) Dyspnea ICD Codes: R06.00 - Dyspnea, unspecified SNOMED: 404198349 Qualifiers: Qualified Codes: R06.00 - Dyspnea, unspecified (2) Protein-calorie malnutrition, severe ICD Codes: E43 - Unspecified severe protein-calorie malnutrition SNOMED: 060453373 (3) Decubitus skin ulcer ICD Codes: L89.90 - Pressure ulcer of unspecified site, unspecified stage SNOMED: 476054542 (4) Hypoxia ICD Codes: R09.02 - Hypoxemia SNOMED: 617930936 (5) Dehydration ICD Codes: E86.0 - Dehydration SNOMED: 95534250 Status: progressing Assessment/Plan: wound pna improving afebrile dc in am if all is improved not hypoxic Subjective ROS Limited/Unobtainable: Yes Allergies: Coded Allergies: PNEUMOCOCCAL VACCINE (Unverified Allergy, Unknown, 10/07/18) Objective Last 24 Hour Vital Signs Date Time Temp Pulse Resp B/P (MAP) Pulse Ox O2 Delivery O2 Flow Rate FiO2 05/13/19 20:03 95 Nasal Cannula 2.0 28 05/13/19 20:00 97.8 64 18 143/82 (102) 97 05/13/19 19:58 76 20 99 Nasal Cannula 2.0 28 72 20 95 05/13/19 16:00 98.9 87 18 105/66 (79) 98 05/13/19 15:25 78 20 99 Nasal Cannula 2.0 28 69 20 96 05/13/19 12:00 97.3 85 20 122/77 (92) 98 05/13/19 11:39 82 20 99 Nasal Cannula 2.0 28 84 20 97 05/13/19 09:28 76 130/83 05/13/19 09:00 Nasal Cannula 2.0 05/13/19 08:45 Nasal Cannula 2.0 05/13/19 08:00 97.9 76 20 130/83 (99) 100 05/13/19 07:31 81 20 99 Nasal Cannula 2.0 28 79 20 97 05/13/19 07:30 97 Nasal Cannula 2.0 28 05/13/19 04:00 98.3 65 22 150/78 (102) 97 05/13/19 02:38 86 20 96 Nasal Cannula 2.0 28 84 20 93 05/13/19 00:00 98.4 100 18 136/77 (96) 97 05/13/19 00:00 90 20 95 Nasal Cannula 2.0 28 88 20 94 05/12/19 21:29 98.0 92 16 126/79 (95) 97 05/12/19 21:28 Nasal Cannula 2.0 Intake and Output 05/12/19 05/13/19 19:00 07:00 Intake Total 480 ml Output Total 300 ml Balance 180 ml Intake Oral 480 ml Output Urine Total 300 ml # Voids 4 # Bowel Movements 1 Laboratory Tests 05/13/19 05:50: White Blood Count 10.9H, Red Blood Count 4.97, Hemoglobin 15.6, Hematocrit 47.9 , Mean Corpuscular Volume 96, Mean Corpuscular Hemoglobin 31.5H, Mean Corpuscular Hemoglobin Concent 32.6, Red Cell Distribution Width 13.8, Platelet Count 291, Mean Platelet Volume 5.7L, Neutrophils (%) (Auto) 73.7, Lymphocytes ( %) (Auto) 14.8L, Monocytes (%) (Auto) 9.1, Eosinophils (%) (Auto) 1.1, Basophils (%) (Auto) 1.3, Sodium Level 144, Potassium Level 4.2, Chloride Level 105, Carbon Dioxide Level 29, Anion Gap 10, Blood Urea Nitrogen 7, Creatinine 1.1, Estimat Glomerular Filtration Rate , Glucose Level 96, Calcium Level 10.6H Height (Feet): 5 Height (Inches): 9.00 Weight (Pounds): 175 General Appearance: lethargic Cardiovascular: normal rate Respiratory/Chest: lungs clear Konrad Soares MD May 13, 2019 21:10
[2019-05-13] MEDS: Donepezil 5mg Tab ORAL SCH (21:16)
--- NOTE | 2019-05-13 21:36 | Pulmonology Progress Note ---
Assessment/Plan Assessment/Plan Pulmonary Progress Note HPI Patient is a 69 year old male [facility] patient with history of Chronic Obstructive Pulmonary Disease, Chronic Granulomatous Disease, Hypertension, Renal Myolipoma, history of seizures, dementia, encephalopathy, Diverticulosis, noncommunicative, admitted with respiratory distress, patient found to be hypoxic, congested, and more altered. No other history available. Less short of breath, comfortable, passed swallow evaluation, AB per ID, on HHN CXR basal atelectasis Allergies: PNEUMOCOCCAL VACCINE Past Medical History: Chronic Obstructive Pulmonary Disease, Chronic Granulomatous Disease, Hypertension, Diverticulosis, Renal Myolipoma, history of Seizures, history of Dementia, encephalopathy All Other Systems: limited - Not communicative Physical Exam Vital Signs Noted General Appearance: moderate distress, thin, Chronically Ill appearing Head: normocephalic, atraumatic Eyes: bilateral eye PERRL, bilateral eye EOMI ENT: uvula midline, dry mucus membranes Neck: supple, thyroid normal, supple/symm/no masses Respiratory: CTAB Cardiovascular: normal peripheral pulses, HS1, HS2, RRR, no edema, no gallop, no murmur, tachycardia Gastrointestinal: non tender, soft, no guarding, no rebound Musculoskeletal: normal inspection Neurologic: awake, chronically altered Skin: no rash, warm/dry Impression: Chronic obstructive pulmonary disease Healthcare-associated pneumonia Dyspnea, Hypoxia Dehydration Chronic Granulomatous Disease Hypertension Diverticulosis Renal Myolipoma History of Seizures History of Dementia Chronic Encephalopathy ER Course - IV Antibiotics - HHN - O2 PRN - PTAMedications - Aspiration precautions - PPX - IVF - Monitor labs Laboratory Tests Noted EKG: Rate: 102 Rhythm: other - Sinus tachycardia Chest X-Ray: Hypoventilatory exam Subjective ROS Limited/Unobtainable: No Allergies: Coded Allergies: PNEUMOCOCCAL VACCINE (Unverified Allergy, Unknown, 10/07/18) Objective Last 24 Hour Vital Signs Date Time Temp Pulse Resp B/P (MAP) Pulse Ox O2 Delivery O2 Flow Rate FiO2 05/13/19 20:03 95 Nasal Cannula 2.0 28 05/13/19 20:00 97.8 64 18 143/82 (102) 97 05/13/19 19:58 76 20 99 Nasal Cannula 2.0 28 72 20 95 05/13/19 16:00 98.9 87 18 105/66 (79) 98 05/13/19 15:25 78 20 99 Nasal Cannula 2.0 28 69 20 96 12/10/19 12:00 97.3 85 20 122/77 (92) 98 05/13/19 11:39 82 20 99 Nasal Cannula 2.0 28 84 20 97 05/13/19 09:28 76 130/83 05/13/19 09:00 Nasal Cannula 2.0 05/13/19 08:45 Nasal Cannula 2.0 05/13/19 08:00 97.9 76 20 130/83 (99) 100 05/13/19 07:31 81 20 99 Nasal Cannula 2.0 28 79 20 97 05/13/19 07:30 97 Nasal Cannula 2.0 28 05/13/19 04:00 98.3 65 22 150/78 (102) 97 05/13/19 02:38 86 20 96 Nasal Cannula 2.0 28 84 20 93 05/13/19 00:00 98.4 100 18 136/77 (96) 97 05/13/19 00:00 90 20 95 Nasal Cannula 2.0 28 88 20 94 Intake and Output 05/12/19 05/13/19 19:00 07:00 Intake Total 480 ml Output Total 300 ml Balance 180 ml Intake Oral 480 ml Output Urine Total 300 ml # Voids 4 # Bowel Movements 1 Laboratory Tests 05/13/19 05:50: White Blood Count 10.9H, Red Blood Count 4.97, Hemoglobin 15.6, Hematocrit 47.9 , Mean Corpuscular Volume 96, Mean Corpuscular Hemoglobin 31.5H, Mean Corpuscular Hemoglobin Concent 32.6, Red Cell Distribution Width 13.8, Platelet Count 291, Mean Platelet Volume 5.7L, Neutrophils (%) (Auto) 73.7, Lymphocytes ( %) (Auto) 14.8L, Monocytes (%) (Auto) 9.1, Eosinophils (%) (Auto) 1.1, Basophils (%) (Auto) 1.3, Sodium Level 144, Potassium Level 4.2, Chloride Level 105, Carbon Dioxide Level 29, Anion Gap 10, Blood Urea Nitrogen 7, Creatinine 1.1, Estimat Glomerular Filtration Rate , Glucose Level 96, Calcium Level 10.6H Current Medications Medications (Trade) Dose Ordered Sig/Nidhi Route PRN Reason Start Time Stop Time Status Last Admin Dose Admin Acetaminophen (Tylenol) 650 mg Q4H PRN ORAL Mild Pain/Temp > 100.5 05/10/19 03:30 06/07/19 23:29 05/10/19 21:06 Albuterol/ Ipratropium (Albuterol/ Ipratropium) 3 ml Q4HRT HHN 05/10/19 07:00 05/14/19 10:59 05/13/19 19:57 Amlodipine Besylate (Norvasc) 5 mg DAILY ORAL 05/10/19 09:00 06/09/19 08:59 05/13/19 09:28 Ascorbic Acid (Vitamin C) 250 mg TWICE A DAY ORAL 05/10/19 09:00 06/09/19 08:59 05/13/19 17:14 Donepezil HCl (Aricept) 5 mg QHS ORAL 05/10/19 21:00 06/08/19 20:59 05/13/19 21:16 Heparin Sodium (Porcine) (Heparin 5000 units/ml) 5,000 units EVERY 12 HOURS SUBQ 05/10/19 09:00 06/08/19 20:59 05/13/19 21:26 Levetiracetam (Keppra) 1,500 mg Q12HR ORAL 05/10/19 09:00 06/08/19 20:59 05/13/19 21:16 Multivitamins (Multivitamins) 1 tab DAILY ORAL 05/10/19 09:00 06/09/19 08:59 05/13/19 09:27 Piperacillin Sod/ Tazobactam Sod 3.375 gm/Sodium Chloride 110 ml @ 27.5 mls/hr Q8HR IVPB 05/10/19 06:00 05/16/19 11:59 05/13/19 14:53 Potassium Chloride (K-Dur) 20 meq TWICE A DAY ORAL 05/10/19 09:00 06/09/19 08:59 05/13/19 17:14 Porfirio Daniel MD May 13, 2019 21:35
[2019-05-14] VITALS: BP 138/71
[2019-05-14] MEDS: Albuterol/Ipratropium 3ml neb HHN SCH ×2 (03:30→07:42)
[2019-05-14 04:00] VITALS: BP 110/82
[2019-05-14] MEDS: Piperacillin/Tazobactam 3.375 GM in NS 110 ML IVPB SCH (05:34)
[2019-05-14 08:00] VITALS: BP 120/75
[2019-05-14] MEDS: Heparin 5000 units/ml inj SUBQ SCH (08:37)
[2019-05-14] MEDS: Ascorbic Acid 500mg tab ORAL SCH (08:37)
[2019-05-14 12:00] VITALS: BP 130/79
--- NOTE | 2019-05-14 12:41 | Hematology/Onc Progress Note ---
Assessment/Plan Assessment/Plan # Hypercalcemia r/o malignancy, r/o myeloma, elevated on admission, may be 2/2 dehydration --> Ca 10.2-->9.5, pth is wnl, spep is also wnl as is upep --> on iv fluids as per pcp --> renal eval prn --> pth on prior admission was 42 # Multiple lung nodules -- in 2017 2 cm pleural-based masslike opacity containing multiple nodular calcifications andadjacent parenchymal linear density persists in the anterolateral periphery of thelateral segment right middle lobe, unchanged. Adjacent small nodular parenchymaldensities persist, unchanged. 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 Greatly appreciate consultation! Subjective Allergies: Coded Allergies: PNEUMOCOCCAL VACCINE (Unverified Allergy, Unknown, 10/07/18) Subjective 05/11: remains altered, is on abx, no bleeding, no night sweats, labs reviewed 05/12: noncommunicative, on abx as per id, on 2l nc, imaging noted 05/13: continues to be somewhat confused, on 2l nc, no bleeding 05/14: no acute events, no labs today, on seizure precautions Objective Objective Current Medications Medications (Trade) Dose Ordered Sig/Nidhi Route PRN Reason Start Time Stop Time Status Last Admin Dose Admin Acetaminophen (Tylenol) 650 mg Q4H PRN ORAL Mild Pain/Temp > 100.5 05/10/19 03:30 06/07/19 23:29 05/10/19 21:06 Amlodipine Besylate (Norvasc) 5 mg DAILY ORAL 05/10/19 09:00 06/09/19 08:59 05/14/19 08:38 Ascorbic Acid (Vitamin C) 250 mg TWICE A DAY ORAL 05/10/19 09:00 06/09/19 08:59 05/14/19 08:37 Donepezil HCl (Aricept) 5 mg QHS ORAL 05/10/19 21:00 06/08/19 20:59 05/13/19 21:16 Heparin Sodium (Porcine) (Heparin 5000 units/ml) 5,000 units EVERY 12 HOURS SUBQ 05/10/19 09:00 06/08/19 20:59 05/14/19 08:37 Levetiracetam (Keppra) 1,500 mg Q12HR ORAL 05/10/19 09:00 06/08/19 20:59 05/14/19 08:37 Multivitamins (Multivitamins) 1 tab DAILY ORAL 05/10/19 09:00 06/09/19 08:59 05/14/19 08:37 Piperacillin Sod/ Tazobactam Sod 3.375 gm/Sodium Chloride 110 ml @ 27.5 mls/hr Q8HR IVPB 05/10/19 06:00 05/16/19 11:59 05/14/19 05:34 Potassium Chloride (K-Dur) 20 meq TWICE A DAY ORAL 05/10/19 09:00 06/09/19 08:59 05/14/19 08:37 Last 24 Hour Vital Signs Date Time Temp Pulse Resp B/P (MAP) Pulse Ox O2 Delivery O2 Flow Rate FiO2 05/14/19 09:00 Nasal Cannula 2.0 05/14/19 08:38 70 120/75 05/14/19 08:22 70 20 96 Nasal Cannula 2.0 28 05/14/19 08:21 96 Nasal Cannula 2.0 28 05/14/19 08:00 98.4 78 18 120/75 (90) 97 05/14/19 07:00 70 18 98 Nasal Cannula 2.0 28 87 22 95 05/14/19 04:00 98.1 96 18 110/82 (91) 98 05/14/19 03:30 101 20 100 Nasal Cannula 2.0 28 99 20 98 05/14/19 00:00 100.0 105 20 138/71 (93) 95 05/13/19 23:56 91 20 100 Nasal Cannula 2.0 28 89 20 98 05/13/19 21:00 Nasal Cannula 2.0 05/13/19 20:03 95 Nasal Cannula 2.0 28 05/13/19 20:00 97.8 64 18 143/82 (102) 97 05/13/19 19:58 76 20 99 Nasal Cannula 2.0 28 72 20 95 05/13/19 16:00 98.9 87 18 105/66 (79) 98 05/13/19 15:25 78 20 99 Nasal Cannula 2.0 28 69 20 96 05/13/19 12:00 97.3 85 20 122/77 (92) 98 05/13/19 11:39 82 20 99 Nasal Cannula 2.0 28 84 20 97 05/13/19 09:28 76 130/83 05/13/19 09:00 Nasal Cannula 2.0 05/13/19 08:45 Nasal Cannula 2.0 05/13/19 08:00 97.9 76 20 130/83 (99) 100 05/13/19 07:31 81 20 99 Nasal Cannula 2.0 28 79 20 97 05/13/19 07:30 97 Nasal Cannula 2.0 28 05/13/19 04:00 98.3 65 22 150/78 (102) 97 05/13/19 02:38 86 20 96 Nasal Cannula 2.0 28 84 20 93 05/13/19 00:00 98.4 100 18 136/77 (96) 97 05/13/19 00:00 90 20 95 Nasal Cannula 2.0 28 88 20 94 05/12/19 21:29 98.0 92 16 126/79 (95) 97 05/12/19 21:28 Nasal Cannula 2.0 05/12/19 20:00 98.0 92 16 126/79 (95) 97 05/12/19 20:00 94 20 94 Nasal Cannula 2.0 28 91 20 92 05/12/19 20:00 92 Nasal Cannula 2.0 28 05/12/19 16:00 98.3 98 20 136/82 (100) 98 05/12/19 14:10 74 18 100 Nasal Cannula 2.0 28 70 18 96 Intake and Output 05/13/19 05/14/19 18:59 06:59 Intake Total 360 ml 137.5 ml Output Total 600 ml 400 ml Balance -240 ml -262.5 ml Intake Oral 360 ml IV Total 137.5 ml Output Urine Total 600 ml 400 ml # Bowel Movements 1 Labs Test 05/13/19 05:50 White Blood Count 10.9 K/UL (4.8-10.8) Red Blood Count 4.97 M/UL (4.70-6.10) Hemoglobin 15.6 G/DL (14.2-18.0) Hematocrit 47.9 % (42.0-52.0) Mean Corpuscular Volume 96 FL (80-99) Mean Corpuscular Hemoglobin 31.5 PG (27.0-31.0) Mean Corpuscular Hemoglobin Concent 32.6 G/DL (32.0-36.0) Red Cell Distribution Width 13.8 % (11.6-14.8) Platelet Count 291 K/UL (150-450) Mean Platelet Volume 5.7 FL (6.5-10.1) Neutrophils (%) (Auto) 73.7 % (45.0-75.0) Lymphocytes (%) (Auto) 14.8 % (20.0-45.0) Monocytes (%) (Auto) 9.1 % (1.0-10.0) Eosinophils (%) (Auto) 1.1 % (0.0-3.0) Basophils (%) (Auto) 1.3 % (0.0-2.0) Sodium Level 144 MMOL/L (136-145) Potassium Level 4.2 MMOL/L (3.5-5.1) Chloride Level 105 MMOL/L (98-107) Carbon Dioxide Level 29 MMOL/L (21-32) Anion Gap 10 mmol/L (5-15) Blood Urea Nitrogen 7 mg/dL (7-18) Creatinine 1.1 MG/DL (0.55-1.30) Estimat Glomerular Filtration Rate mL/min (>60) Glucose Level 96 MG/DL (74-106) Calcium Level 10.6 MG/DL (8.5-10.1) Height (Feet): 5 Height (Inches): 9.00 Weight (Pounds): 166 Objective Vitals: have been reviewed Gen: nad, obese Pulm: ctab, no cwr, NC+ CV: rrr, no mgr Abd: soft, nt, nd Ext: no cce Ignacio Ponce MD May 14, 2019 12:41
--- NOTE | 2019-05-14 13:33 | Infectious Diseases Prog Note ---
Assessment/Plan Assessment/Plan IMPRESSION: Sepsis improving COPD exacerbation, Atelectasis hypoxemia, hypertension, dementia. RECOMMENDATION: Discontinue Zosyn PO Levaquin X 2 days Rebeca with discharge Subjective ROS Limited/Unobtainable: Yes Constitutional: Reports: fever, other - [id number] Respiratory: Reports: productive cough Allergies: Coded Allergies: PNEUMOCOCCAL VACCINE (Unverified Allergy, Unknown, 10/07/18) Objective Vital Signs Last 24 Hour Vital Signs Date Time Temp Pulse Resp B/P (MAP) Pulse Ox O2 Delivery O2 Flow Rate FiO2 05/14/19 09:00 Nasal Cannula 2.0 05/14/19 08:38 70 120/75 05/14/19 08:22 70 20 96 Nasal Cannula 2.0 28 05/14/19 08:21 96 Nasal Cannula 2.0 28 05/14/19 08:00 98.4 78 18 120/75 (90) 97 05/14/19 07:00 70 18 98 Nasal Cannula 2.0 28 87 22 95 05/14/19 04:00 98.1 96 18 110/82 (91) 98 05/14/19 03:30 101 20 100 Nasal Cannula 2.0 28 99 20 98 05/14/19 00:00 100.0 105 20 138/71 (93) 95 05/13/19 23:56 91 20 100 Nasal Cannula 2.0 28 89 20 98 05/13/19 21:00 Nasal Cannula 2.0 05/13/19 20:03 95 Nasal Cannula 2.0 28 05/13/19 20:00 97.8 64 18 143/82 (102) 97 05/13/19 19:58 76 20 99 Nasal Cannula 2.0 28 72 20 95 05/13/19 16:00 98.9 87 18 105/66 (79) 98 05/13/19 15:25 78 20 99 Nasal Cannula 2.0 28 69 20 96 Height (Feet): 5 Height (Inches): 9.00 Weight (Pounds): 166 General Appearance: no acute distress HEENT: mucous membranes moist Respiratory/Chest: lungs clear Cardiovascular: normal rate Abdomen: soft, non tender Extremities: no edema Neurologic/Psychiatric: disoriented, other - opens eyes Current Medications Medications (Trade) Dose Ordered Sig/Nidhi Route PRN Reason Start Time Stop Time Status Last Admin Dose Admin Acetaminophen (Tylenol) 650 mg Q4H PRN ORAL Mild Pain/Temp > 100.5 05/10/19 03:30 06/07/19 23:29 05/10/19 21:06 Amlodipine Besylate (Norvasc) 5 mg DAILY ORAL 05/10/19 09:00 06/09/19 08:59 05/14/19 08:38 Ascorbic Acid (Vitamin C) 250 mg TWICE A DAY ORAL 05/10/19 09:00 06/09/19 08:59 05/14/19 08:37 Donepezil HCl (Aricept) 5 mg QHS ORAL 05/10/19 21:00 06/08/19 20:59 05/13/19 21:16 Heparin Sodium (Porcine) (Heparin 5000 units/ml) 5,000 units EVERY 12 HOURS SUBQ 05/10/19 09:00 06/08/19 20:59 05/14/19 08:37 Levetiracetam (Keppra) 1,500 mg Q12HR ORAL 05/10/19 09:00 06/08/19 20:59 05/14/19 08:37 Multivitamins (Multivitamins) 1 tab DAILY ORAL 05/10/19 09:00 06/09/19 08:59 05/14/19 08:37 Piperacillin Sod/ Tazobactam Sod 3.375 gm/Sodium Chloride 110 ml @ 27.5 mls/hr Q8HR IVPB 05/10/19 06:00 05/16/19 11:59 05/14/19 05:34 Potassium Chloride (K-Dur) 20 meq TWICE A DAY ORAL 05/10/19 09:00 06/09/19 08:59 05/14/19 08:37 Curtis Farah MD May 14, 2019 13:33
[2019-05-14] MEDS ORDERED: Levofloxacin 750mg tab ORAL SCH (15:00)
--- NOTE | 2019-05-14 15:19 | Pulmonology Progress Note ---
Assessment/Plan Assessment/Plan Pulmonary Progress Note HPI Patient is a 69 year old male group home patient with history of Chronic Obstructive Pulmonary Disease, Chronic Granulomatous Disease, Hypertension, Renal Myolipoma, history of seizures, dementia, encephalopathy, Diverticulosis, noncommunicative, admitted with respiratory distress, patient found to be hypoxic, congested, and more altered. No other history available. Less short of breath, comfortable, passed swallow evaluation, AB per ID, on HHN CXR basal atelectasis Allergies: PNEUMOCOCCAL VACCINE Past Medical History: Chronic Obstructive Pulmonary Disease, Chronic Granulomatous Disease, Hypertension, Diverticulosis, Renal Myolipoma, history of Seizures, history of Dementia, encephalopathy All Other Systems: limited - Not communicative Physical Exam Vital Signs Noted General Appearance: moderate distress, thin, Chronically Ill appearing Head: normocephalic, atraumatic Eyes: bilateral eye PERRL, bilateral eye EOMI ENT: uvula midline, dry mucus membranes Neck: supple, thyroid normal, supple/symm/no masses Respiratory: CTAB Cardiovascular: normal peripheral pulses, HS1, HS2, RRR, no edema, no gallop, no murmur, tachycardia Gastrointestinal: non tender, soft, no guarding, no rebound Musculoskeletal: normal inspection Neurologic: awake, chronically altered Skin: no rash, warm/dry Impression: Chronic obstructive pulmonary disease Healthcare-associated pneumonia Dyspnea, Hypoxia Dehydration Chronic Granulomatous Disease Hypertension Diverticulosis Renal Myolipoma History of Seizures History of Dementia Chronic Encephalopathy ER Course - IV Antibiotics - HHN - O2 PRN - PTAMedications - Aspiration precautions - PPX - IVF PRN - Monitor labs Laboratory Tests Noted EKG: Rate: 102 Rhythm: other - Sinus tachycardia Chest X-Ray: Hypoventilatory exam Subjective ROS Limited/Unobtainable: No Allergies: Coded Allergies: PNEUMOCOCCAL VACCINE (Unverified Allergy, Unknown, 10/07/18) Objective Last 24 Hour Vital Signs Date Time Temp Pulse Resp B/P (MAP) Pulse Ox O2 Delivery O2 Flow Rate FiO2 05/14/19 12:00 98.4 93 20 130/79 (96) 98 05/14/19 09:00 Nasal Cannula 2.0 05/14/19 08:38 70 120/75 05/14/19 08:22 70 20 96 Nasal Cannula 2.0 28 05/14/19 08:21 96 Nasal Cannula 2.0 28 05/14/19 08:00 98.4 78 18 120/75 (90) 97 05/14/19 07:00 70 18 98 Nasal Cannula 2.0 28 87 22 95 05/14/19 04:00 98.1 96 18 110/82 (91) 98 05/14/19 03:30 101 20 100 Nasal Cannula 2.0 28 99 20 98 05/14/19 00:00 100.0 105 20 138/71 (93) 95 05/13/19 23:56 91 20 100 Nasal Cannula 2.0 28 89 20 98 05/13/19 21:00 Nasal Cannula 2.0 05/13/19 20:03 95 Nasal Cannula 2.0 28 05/13/19 20:00 97.8 64 18 143/82 (102) 97 05/13/19 19:58 76 20 99 Nasal Cannula 2.0 28 72 20 95 05/13/19 16:00 98.9 87 18 105/66 (79) 98 05/13/19 15:25 78 20 99 Nasal Cannula 2.0 28 69 20 96 Intake and Output 05/13/19 05/14/19 19:00 07:00 Intake Total 360 ml 137.5 ml Output Total 600 ml 400 ml Balance -240 ml -262.5 ml Intake Oral 360 ml IV Total 137.5 ml Output Urine Total 600 ml 400 ml # Bowel Movements 1 Current Medications Medications (Trade) Dose Ordered Sig/Nidhi Route PRN Reason Start Time Stop Time Status Last Admin Dose Admin Acetaminophen (Tylenol) 650 mg Q4H PRN ORAL Mild Pain/Temp > 100.5 05/10/19 03:30 06/07/19 23:29 05/10/19 21:06 Amlodipine Besylate (Norvasc) 5 mg DAILY ORAL 05/10/19 09:00 06/09/19 08:59 05/14/19 08:38 Ascorbic Acid (Vitamin C) 250 mg TWICE A DAY ORAL 05/10/19 09:00 06/09/19 08:59 05/14/19 08:37 Donepezil HCl (Aricept) 5 mg QHS ORAL 05/10/19 21:00 06/08/19 20:59 05/13/19 21:16 Heparin Sodium (Porcine) (Heparin 5000 units/ml) 5,000 units EVERY 12 HOURS SUBQ 05/10/19 09:00 06/08/19 20:59 05/14/19 08:37 Levetiracetam (Keppra) 1,500 mg Q12HR ORAL 05/10/19 09:00 06/08/19 20:59 05/14/19 08:37 Levofloxacin (Levaquin) 750 mg DAILY ORAL 05/14/19 15:00 05/21/19 14:59 05/14/19 14:54 Multivitamins (Multivitamins) 1 tab DAILY ORAL 05/10/19 09:00 06/09/19 08:59 05/14/19 08:37 Potassium Chloride (K-Dur) 20 meq TWICE A DAY ORAL 05/10/19 09:00 06/09/19 08:59 05/14/19 08:37 Porfirio Daniel MD May 14, 2019 15:19
[2019-05-14 16:00] VITALS: BP 128/79
[2019-05-14] MEDS ORDERED: LEVAQUIN750 MG ORAL (16:03)
--- NOTE | 2019-05-14 17:09 | Surgery Progress Note ---
Surgery Progress Note Subjective Additional Comments No acute events. Comfortable appearing. No nausea vomiting fever chills. Exam stable. Objective Last 24 Hour Vital Signs Date Time Temp Pulse Resp B/P (MAP) Pulse Ox O2 Delivery O2 Flow Rate FiO2 05/14/19 16:00 98.8 103 19 128/79 (95) 95 05/14/19 12:00 98.4 93 20 130/79 (96) 98 05/14/19 09:00 Nasal Cannula 2.0 05/14/19 08:38 70 120/75 05/14/19 08:22 70 20 96 Nasal Cannula 2.0 28 05/14/19 08:21 96 Nasal Cannula 2.0 28 05/14/19 08:00 98.4 78 18 120/75 (90) 97 05/14/19 07:00 70 18 98 Nasal Cannula 2.0 28 87 22 95 05/14/19 04:00 98.1 96 18 110/82 (91) 98 05/14/19 03:30 101 20 100 Nasal Cannula 2.0 28 99 20 98 05/14/19 00:00 100.0 105 20 138/71 (93) 95 05/13/19 23:56 91 20 100 Nasal Cannula 2.0 28 89 20 98 05/13/19 21:00 Nasal Cannula 2.0 05/13/19 20:03 95 Nasal Cannula 2.0 28 05/13/19 20:00 97.8 64 18 143/82 (102) 97 05/13/19 19:58 76 20 99 Nasal Cannula 2.0 28 72 20 95 I&O Intake and Output 05/13/19 05/14/19 19:00 07:00 Intake Total 360 ml 137.5 ml Output Total 600 ml 400 ml Balance -240 ml -262.5 ml Intake Oral 360 ml IV Total 137.5 ml Output Urine Total 600 ml 400 ml # Bowel Movements 1 Wound: clean Drains: other Cardiovascular: RSR Respiratory: clear Abdomen: soft, flat, non-tender, present bowel sounds Extremities: no tenderness, no cyanosis, other Plan Problems: (1) Decubitus skin ulcer Assessment & Plan: Pt presented on admission with resolving pressure injuries sacrum R heel. Resolving full thickness sacral pressure injury. Beefy red granulation with small amt Biofilm at base of wound (L)1cm x (W)1.5cm x(D)0.2cm ,with surrounding pink epithelial(L)3.5cm x (W)3cm.No odor or exudate noted. Loose dry eschar noted to R heel (L)0.8cm x (W)3.5cm. Easily removed with friction. R heel is boggy with non-blanching erythema. Historical surgical scar noted to R hip. L heel boggy with non-blanching erythema. No other skin concerns noted. Pt requires extensive asst with bed mobility and is at high risks for skin breakdown. Both hips and both heels padded with Optifoam drsg to minimize friction on skin. Pt positioned on side with pillow and both heels floated with pillows off bed. Tx.Plan: Apply Moisture Barrier Paste to Sacrum. Cover with Optifoam drsg. Change every 3 days and prn. Apply Cavilon Skin Barrier to Both heels. Cover each heel with Optifoam drsg. Change every 7 days and prn. Reposition at least every 2 hours or as tolerated. Off-load heels with pillow. (2) Leukocytosis (3) Severe sepsis Assessment & Plan: leukocytosis - resolved lactic acidosis - resolved abnormal labs cxr noted exam as above on IV abx trend labs cont with current care thank you (4) Protein-calorie malnutrition, severe Assessment & Plan: DAILY ESTIMATED NEEDS: Needs based on Pulmonary, wounds; 74.5kg 25-35 kcals/kg 1863- 2608 total kcals 1.25-1.5 g protein/kg 93- 112 g total protein 25-30 mL/kg [id number] total fluid mLs NUTRITION DIAGNOSIS: 1. Increased pro needs r/t wound healing AEB pt adm w/ r heel unstageable Sacral partial thickness wounds per EMR, WC eval pending. 2. Swallowing difficulty r/t dysphagia AEB diet [employer] regular, puree, thin liquids- BE[employer]ER eval pending. CURRENT DIET:NPO PO DIET RECOMMENDATIONS: Regular, texture per BEET WORKER ----> WHEN APPROPRIATE ADDITIONAL RECOMMENDATIONS: * F/up w/ WC eval W/ diet addd Hai in 8oz H2O BID + Vit C 250mmg BID + MVI w/ min qd * F/up w/ BEET WORKER for appropriate texture -> w/ need for supplements, rec Ensure Enlive. * Obtain calibrated bed scale wts * Consult RD fo TF recs if needed, if part of POC (5) Lung mass Assessment & Plan: 2 cm pleural-based masslike opacity containing multiple nodular calcifications andadjacent parenchymal linear density persists in the anterolateral periphery of thelateral segment right middle lobe, unchanged. Adjacent small nodular parenchymaldensities persist, unchanged. Small irregular pleural-based linear densities persist in the dependent portions of both lung bases, unchanged. No new pulmonary parenchymal abnormality demonstrated. No pleural disease is evident. Nodularcalcification in right hilum unchanged. Clustered calcified nodules in the subcarinal region of mediastinum unchanged. No new mediastinal or hilar enlarged lymph nodes. Heart remains normal in size. No pericardial abnormality. Centralmediastinal vasculature remains unremarkable in appearance. noted prior in 2017. no path available cxr noted may repeat CT chest once improving (6) Lactic acid acidosis Gabino Little May 14, 2019 17:09
--- NOTE | 2019-05-15 09:21 | Discharge Summary ---
Discharge Summary Discharge Summary _ DATE OF ADMISSION: 05/08/2019 DATE OF DISCHARGE: 05/14/2019 DISCHARGED BY: Dr Soares REASON FOR ADMISSION: 69 years old male with past medical history of hypertension, encephalopathy, COPD, seizure disorder, presented from the [facility] with respiratory distress. Patient was found hypoxic at the facility, congested and more altered. Upon evaluation vital signs revealed mild tachycardia. Patient was afebrile. Laboratory work-up revealed leukocytosis WBC 14.4 , stable hemoglobin , hematocrit and platelet count. Stable electrolytes and renal parameters. Lactic acid 2.4. AST 49 , ALT 55, lipase 112. Troponin negative. pro BNP 22. ECG revealed sinus tachycardia, no acute ischemic changes. Chest x-ray revealed probable right lower lobe consolidation, likely consistent with pneumonia. ABG on 2 L of oxygen via nasal cannula was stable. In emergency department patient started on fluid resuscitation and broad- spectrum antibiotics. Patient was subsequently admitted for further management. CONSULTANTS: pulmonary Dr. Daniel ID specialist Dr. Farah vice admiral/oncologist Dr. Ponce surgery Dr. Little [facility] COURSE: Patient admitted and started on the IV fluids and empiric antibiotics under ID specialist recommendation. Supplemental oxygen provided and titrated to keep oximetry above 92%. Bronchodilator therapy via HHN provided as needed. Aspiration precaution maintained. DVT prophylaxis provided. Blood pressure was managed with calcium channel demario and remained stable Seizure precaution maintained, Keppra continued . No evidence of seizure activity while in the hospital. Business And Services Instructor followed. Patient noted hypercalcemia . PTH, serum protein electrophoresis were within normal limits/checked on prior admission. . Patient was on the IV fluids. Prior CT scan of the chest revealed multiply lung nodules in 2017 2 cm pleural- based masslike opacity CT chest will be repeated after pneumonia clears. Per net technical architect, findings were compatible with chronic granulomatous disease and were stable. Surgeon followed for resolving pressure injuries : sacral and right heel. Wound care provided as per surgeon recommendation. Nutritional supplement implemented in plan of care as per dialysis registered nurse recommendation. Diet texture provided as per speech therapist recommendation with strict aspiration precautions. Supportive care provided. Aricept continued. Renal parameters and electrolytes were closely monitored, electrolytes corrected as needed , and nephrotoxic's were avoided. Potassium was replaced; potassium 4.2 upon discharge. Hemoglobin and hematocrit remained stable. Prior to discharge IV antibiotic discontinued and changed to oral antibiotic to complete the course at the facility. Patient clinically stabilized and was ready for transfer back to [facility] for continuation of care. FINAL DIAGNOSES: Sepsis COPD Healthcare associated pneumonia Hypoxia Chronic granulomatous disease Hypertension Diverticulosis Seizure disorder Dementia Chronic encephalopathy Dehydration Dysphagia Severe protein calorie malnutrition Sacral and right heel pressure injury , present on admission DISCHARGE MEDICATIONS: See Medication Reconciliation list. DISCHARGE INSTRUCTIONS: Patient was discharged to the [facility]. Follow up with medical doctor at the facility. I have been assigned to dictate discharge summary for this account. I was not involved in the patient's management. Ghazal Maradiaga NP May 15, 2019 09:21
== END 2019-05-14 17:20 | DRG 871 ==
LOC: EDBD 19:06 → EMR 20:11 → 2W 20:15 → EDBEDREQ 21:44 → 4E 05-10 03:34
DX: A41.9 Sepsis, unspecified organism (principal); J18.9 Pneumonia, unspecified organism; E43 Unspecified severe protein-calorie malnutrition; G93.40 Encephalopathy, unspecified; J98.11 Atelectasis; J44.9 Chronic obstructive pulmonary disease, unspecified; Z88.7 Allergy status to serum and vaccine; F03.90 Unspecified dementia, unspecified severity, without behavioral disturbance, psychotic disturbance, mood disturbance, and anxiety; R65.20 Severe sepsis without septic shock; E83.52 Hypercalcemia; G40.909 Epilepsy, unspecified, not intractable, without status epilepticus; L89.159 Pressure ulcer of sacral region, unspecified stage; L89.619 Pressure ulcer of right heel, unspecified stage; E86.0 Dehydration; K57.90 Diverticulosis of intestine, part unspecified, without perforation or abscess without bleeding; R09.02 Hypoxemia; D17.5 Benign lipomatous neoplasm of intra-abdominal organs; R91.8 Other nonspecific abnormal finding of lung field; M11.239 Other chondrocalcinosis, unspecified wrist; S09.90XA Unspecified injury of head, initial encounter; X58.XXXA Exposure to other specified factors, initial encounter
CPT/HCPCS: 36415; 36600; 71045; 80048; 80053; 80202; 80299; 82310; 82550; 82553; 82803; 83605; 83690; 83735; 83880; 84100; 84484; 85025; 85610; 85730; 86710; 87040; 87081; 93005; 94640; 94664; 96365; 96367; 96368; 99291; J7030; J7620; J8499

== ENCOUNTER 2019-05-15 03:55 | Inpatient (IN) | payer MEDICARE, MEDICAID ==
[~2019-05-15] VITALS: Ht 182.9 cm; Wt 76.0 kg
[~2019-05-15 03:55] MED LIST changes: +LEVAQUIN750 MG ORAL
--- NOTE | 2019-05-15 03:57 | Emergency Room Report ---
History of Present Illness General Source: Medical Record, EMS Present Illness HPI Patient is a 69-year-old male brought in by basic ambulance after increased fever and cough. Patient recent hospitalization for COPD exacerbation. He had recent been on antibiotics. He was noted to have increased temperature up to 102 degrees.Patient had been having increased congestion.Patient had prior history of dementia. History is markedly limited by patient's mental status. Allergies: Coded Allergies: PNEUMOCOCCAL VACCINE (Unverified Allergy, Unknown, 10/07/18) Patient History Past Medical History: see triage record Reviewed Nursing Documentation: PMH: Agreed; PSxH: Agreed Review of Systems All Other Systems: limited - Review of systems: Review systems is limited by patient's being a poor historian Physical Exam General Appearance: alert, Chronically Ill ENT: dry mucus membranes Neck: limited range of motion Respiratory: crackles, wheezing Cardiovascular #1: normal peripheral pulses, regular rate, rhythm Gastrointestinal: normal inspection Musculoskeletal: normal inspection Neurologic: alert, motor weakness, responsive Psychiatric: normal inspection Skin: other - Facial rash with increased scaling Medical Decision Making Diagnostic Impression: Primary Impression: Acute febrile illness Additional Impressions: PNA (pneumonia) COPD (chronic obstructive pulmonary disease) ER Course Patient presented for fever and cough. Differential diagnosis included but was not limited to pneumonia, bronchitis, influenza, among others. Patient was noted to have recent pneumonia. Patient was given breathing treatment. CXR showed some cardiac enlargement as well as lung infiltrate. Blood cultures were obtained. Patient was given IV fluids as well as IV antibiotics.Dr. Bradford was contacted for inpatient management. Labs Test 05/15/19 04:20 05/15/19 17:40 White Blood Count 12.0 K/UL (4.8-10.8) Red Blood Count 4.92 M/UL (4.70-6.10) Hemoglobin 15.2 G/DL (14.2-18.0) Hematocrit 46.9 % (42.0-52.0) Mean Corpuscular Volume 95 FL (80-99) Mean Corpuscular Hemoglobin 30.8 PG (27.0-31.0) Mean Corpuscular Hemoglobin Concent 32.4 G/DL (32.0-36.0) Red Cell Distribution Width 13.7 % (11.6-14.8) Platelet Count 334 K/UL (150-450) Mean Platelet Volume 5.6 FL (6.5-10.1) Neutrophils (%) (Auto) 69.2 % (45.0-75.0) Lymphocytes (%) (Auto) 21.3 % (20.0-45.0) Monocytes (%) (Auto) 7.3 % (1.0-10.0) Eosinophils (%) (Auto) 1.1 % (0.0-3.0) Basophils (%) (Auto) 1.1 % (0.0-2.0) Sodium Level 142 MMOL/L (136-145) Potassium Level 4.4 MMOL/L (3.5-5.1) Chloride Level 105 MMOL/L (98-107) Carbon Dioxide Level 30 MMOL/L (21-32) Anion Gap 7 mmol/L (5-15) Blood Urea Nitrogen 9 mg/dL (7-18) Creatinine 1.0 MG/DL (0.55-1.30) Estimat Glomerular Filtration Rate mL/min (>60) Glucose Level 94 MG/DL (74-106) Lactic Acid Level 0.80 mmol/L (0.4-2.0) Calcium Level 10.2 MG/DL (8.5-10.1) Total Bilirubin 0.6 MG/DL (0.2-1.0) Aspartate Amino Transf (AST/SGOT) 71 U/L (15-37) Alanine Aminotransferase (ALT/SGPT) 59 U/L (12-78) Alkaline Phosphatase 170 U/L (46-116) Troponin I 0.015 ng/mL (0.000-0.056) Pro-B-Type Natriuretic Peptide 38 pg/mL (0-125) Total Protein 8.7 G/DL (6.4-8.2) Albumin 3.3 G/DL (3.4-5.0) Globulin 5.4 g/dL Albumin/Globulin Ratio 0.6 (1.0-2.7) Urine Color Yellow Urine Appearance Clear Urine pH 5 (4.5-8.0) Urine Specific [place] 1.020 (1.005-1.035) Urine Protein 2+ (NEGATIVE) Urine Glucose (UA) Negative (NEGATIVE) Urine Ketones 3+ (NEGATIVE) Urine Blood 1+ (NEGATIVE) Urine Nitrite Negative (NEGATIVE) Urine Bilirubin Negative (NEGATIVE) Urine Urobilinogen 1 MG/DL (0.0-1.0) Urine Leukocyte Esterase 1+ (NEGATIVE) Urine RBC 2-4 /HPF (0 - 0) Urine WBC 2-4 /HPF (0 - 0) Urine Squamous Epithelial Cells None /LPF (NONE/OCC) Urine Bacteria Few /HPF (NONE) Status: unchanged Disposition: ADMITTED INPATIENT Condition: Stable Clinton Fishman MD May 15, 2019 03:57
[2019-05-15 04:04] VITALS: BP 125/80
[2019-05-15 04:44] LABS: BASOPHILS % (AUTO) 1.1 % (0.0-2.0); EOSINOPHILS % (AUTO) 1.1 % (0.0-3.0); HEMATOCRIT 46.9 % (42.0-52.0); HEMOGLOBIN 15.2 G/DL (14.2-18.0); LYMPHOCYTES % (AUTO) 21.3 % (20.0-45.0); MEAN CORPUSCULAR VOLUME 95 FL (80-99); MONOCYTES % (AUTO) 7.3 % (1.0-10.0); NEUTROPHILS % (AUTO) 69.2 % (45.0-75.0); PLATELET COUNT 334 K/UL (150-450); RED BLOOD COUNT 4.92 M/UL (4.70-6.10); RED CELL DISTRIBUTION WIDTH 13.7 % (11.6-14.8)
[2019-05-15 04:54] LABS: ANION GAP 7 mmol/L (5-15); BLOOD UREA NITROGEN 9 mg/dL (7-18); CALCIUM 10.2 MG/DL (8.5-10.1); CARBON DIOXIDE 30 MMOL/L (21-32); CHLORIDE 105 MMOL/L (98-107); POTASSIUM 4.4 MMOL/L (3.5-5.1); SODIUM 142 MMOL/L (136-145)
[2019-05-15 05:06] LABS: ALANINE AMINOTRANSFERASE 59 U/L (12-78); ALBUMIN 3.3 G/DL (3.4-5.0); ALBUMIN/GLOBULIN RATIO 0.6 (1.0-2.7); ALKALINE PHOSPHATASE 170 U/L (46-116); ASPARTATE AMINO TRANSFERASE 71 U/L (15-37); BILIRUBIN,TOTAL 0.6 MG/DL (0.2-1.0)
[2019-05-15 05:15] LABS: APPEARANCE,URINE CLEAR; BILIRUBIN, URINE NEGATIVE (NEGATIVE); GLUCOSE, URINE (UA) NEGATIVE (NEGATIVE); KETONES,URINE 3+ (NEGATIVE); LEUKOCYTE ESTERASE ,URINE NEGATIVE (NEGATIVE); NITRITE,URINE NEGATIVE (NEGATIVE); PH,URINE 5 (4.5-8.0); PROTEIN,URINE 1+ (NEGATIVE); UROBILINOGEN,URINE 1 MG/DL (0.0-1.0)
[2019-05-15] MEDS ORDERED: Piperacillin/Tazobactam 3.375 GM in NS 110 ML IVPB ONE (05:15)
[2019-05-15 05:36] LABS: COLOR,URINE YELLOW
[2019-05-15 06:31] VITALS: BP 152/95
[2019-05-15 08:30] VITALS: BP 114/94
--- NOTE | 2019-05-15 09:09 | Pulmonology Progress Note ---
Assessment/Plan Assessment/Plan Pulmonary Consultation HPI Patient is a 69 year old male [facility] patient with history of Chronic Obstructive Pulmonary Disease, Chronic Granulomatous Disease, Hypertension, Renal Myolipoma, history of seizures, dementia, encephalopathy, Diverticulosis, noncommunicative, admitted with respiratory distress, patient found to be hypoxic, congested, and more altered. No other history available. Recently discharged, had been treated for Pneumonia, Heel wound, noted to have high fever at [facility]. Also noted to have cough and increased congestion.Patient had prior history of dementia. History is markedly limited by patient's mental status. Allergies: PNEUMOCOCCAL VACCINE Past Medical History: Chronic Obstructive Pulmonary Disease, Chronic Granulomatous Disease, Hypertension, Diverticulosis, Renal Myolipoma, history of Seizures, history of Dementia, encephalopathy All Other Systems: limited - Not communicative Physical Exam Vital Signs Noted General Appearance: Wasted, Chronically Ill appearing Head: normocephalic, atraumatic Eyes: bilateral eye PERRL, bilateral eye EOMI ENT: uvula midline, dry mucus membranes Neck: supple, thyroid normal, supple/symm/no masses Respiratory: Bilateral rhonchi Cardiovascular: normal peripheral pulses, HS1, HS2, RRR, no edema, no gallop, no murmur, tachycardia Gastrointestinal: non tender, soft, no guarding, no rebound Musculoskeletal: normal inspection Neurologic: awake, chronically altered Skin: no rash, warm/dry Impression: Chronic obstructive pulmonary disease Healthcare-associated pneumonia Heel wounds Dyspnea, Hypoxia Dehydration Chronic Granulomatous Disease with two pleural based partially calcified areas Hypertension Diverticulosis Renal Myolipoma History of Seizures History of Dementia Chronic Encephalopathy Increased Calcium ER Course - IV Antibiotics - HHN - O2 PRN - CONTACT CENTER REP Medications - 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 Infectious infiltrates not excluded. Clinical correlation/follow-up recommended. CT Chest: 2 cm pleural-based masslike opacity containing multiple nodular calcifications andadjacent parenchymal linear density persists in the anterolateral periphery of thelateral segment right middle lobe, unchanged. Adjacent small nodular parenchymaldensities persist, unchanged. Small irregular pleural-based linear densities persist in the dependent portions of both lung bases, unchanged. No new pulmonary parenchymal abnormality demonstrated. No pleural disease is evident. Nodularcalcification in right hilum unchanged. Clustered calcified nodules in the subcarinal region of mediastinum unchanged. No new mediastinal or hilar enlarged lymph nodes. Heart remains normal in size. No pericardial abnormality. Centralmediastinal vasculature remains unremarkable in appearance. Subjective ROS Limited/Unobtainable: No Allergies: Coded Allergies: PNEUMOCOCCAL VACCINE (Unverified Allergy, Unknown, 10/07/18) Objective Last 24 Hour Vital Signs Date Time Temp Pulse Resp B/P (MAP) Pulse Ox O2 Delivery O2 Flow Rate FiO2 05/15/19 08:00 97.8 113 30 117/68 93 Nasal Cannula 2.0 05/15/19 06:31 97.7 105 24 152/95 94 Nasal Cannula 2.0 05/15/19 04:04 83 19 Nasal Cannula 3.0 05/15/19 04:04 97.7 80 19 125/80 94 Room Air 05/15/19 03:54 97.7 83 19 125/80 (95) 94 Room Air Intake and Output 05/14/19 05/15/19 19:00 07:00 Intake Total 0 ml Balance 0 ml Intake Oral 0 ml Microbiology Date/Time Source Procedure Growth Status 05/15/19 04:20 Nasal Nares - Final Complete 05/15/19 04:20 Nasal Nares - Final Complete Laboratory Tests 05/15/19 04:20: White Blood Count 12.0H, Red Blood Count 4.92, Hemoglobin 15.2, Hematocrit 46.9 , Mean Corpuscular Volume 95, Mean Corpuscular Hemoglobin 30.8, Mean Corpuscular Hemoglobin Concent 32.4, Red Cell Distribution Width 13.7, Platelet Count 334, Mean Platelet Volume 5.6L, Neutrophils (%) (Auto) 69.2, Lymphocytes ( %) (Auto) 21.3, Monocytes (%) (Auto) 7.3, Eosinophils (%) (Auto) 1.1, Basophils (%) (Auto) 1.1, Sodium Level 142, Potassium Level 4.4, Chloride Level 105, Carbon Dioxide Level 30, Anion Gap 7, Blood Urea Nitrogen 9, Creatinine 1.0, Estimat Glomerular Filtration Rate , Glucose Level 94, Lactic Acid Level 0.80, Calcium Level 10.2H, Total Bilirubin 0.6, Aspartate Amino Transf (AST/SGOT) 71H , Alanine Aminotransferase (ALT/SGPT) 59, Alkaline Phosphatase 170H, Troponin I 0.015, Pro-B-Type Natriuretic Peptide 38, Total Protein 8.7H, Albumin 3.3L, Globulin 5.4, Albumin/Globulin Ratio 0.6L 05/15/19 05:00: Urine Color Yellow, Urine Appearance Clear, Urine pH 5, Urine Specific [place] 1.020, Urine Protein 1+H, Urine Glucose (UA) Negative, Urine Ketones 3+H, Urine Blood 3+H, Urine Nitrite Negative, Urine Bilirubin Negative, Urine Urobilinogen 1H, Urine Leukocyte Esterase Negative, Urine RBC 15-20H, Urine WBC 2-4, Urine Squamous Epithelial Cells Few, Urine Bacteria Few Porfirio Daniel MD May 15, 2019 09:09
[2019-05-15] MEDS: D5 1/2NS 1,000 ML IV SCH (09:45)
--- NOTE | 2019-05-15 10:49 | Diagnostic Imaging Report ---
Indication: Shortness of breath Technique: XRAY Chest 1v Comparison: 05/12/2019 Findings: Low lung volumes. Heart size and mediastinal contours are stable. There is streaky opacity of the bilateral bases. No radiographically appreciable pleural effusion or pneumothorax. There are degenerative changes in the spine. No acute osseous abnormality. Impression: Low lung volumes with streaky airspace opacities at the bilateral bases which may be related to expiratory atelectasis. Infectious infiltrates not excluded. Clinical correlation/follow-up recommended.
[2019-05-15] MEDS: Albuterol/Ipratropium 3ml neb HHN SCH ×4 (11:59→23:09)
[2019-05-15] MEDS: Acetylcysteine 20% Soln 4ml HHN SCH ×4 (11:59→23:09)
[2019-05-15 12:00] VITALS: BP 133/78
[2019-05-15] MEDS: Vancomycin 750mg/D5W 275ml IVPB SCH ×2 (12:13)
--- NOTE | 2019-05-15 12:25 | Hematology/Onc Progress Note ---
Assessment/Plan Assessment/Plan # Hypercalcemia r/o malignancy, r/o myeloma, elevated on admission, may be 2/2 dehydration --> Ca 10.2-->9.5->10.7, pth is wnl, spep is also wnl as is upep --> on iv fluids as per pcp --> renal eval prn --> pth on prior admission was 42 # Multiple lung nodules -- in 2017 2 cm pleural-based masslike opacity containing multiple nodular calcifications andadjacent parenchymal linear density persists in the anterolateral periphery of thelateral segment right middle lobe, unchanged. Adjacent small nodular parenchymaldensities persist, unchanged. 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 Greatly appreciate consultation! Subjective Constitutional: Denies: no symptoms, chills, fever, malaise, weakness, other HEENT: Denies: no symptoms, eye pain, blurred vision, tearing, double vision, ear pain, ear discharge, nose pain, nose congestion, throat pain, throat swelling, mouth pain, mouth swelling, other Cardiovascular: Denies: no symptoms, chest pain, edema, irregular heart rate, lightheadedness, palpitations, syncope, other Respiratory: Denies: no symptoms, cough, shortness of breath, SOB with excertion, SOB at rest, sputum, wheezing, other Gastrointestinal/Abdominal: Denies: no symptoms, abdomen distended, abdominal pain, black stools, tarry stools, blood in stool, constipated, diarrhea, difficulty swallowing, nausea, poor appetite, poor fluid intake, rectal bleeding , vomiting, other Endocrine: Denies: no symptoms, excessive sweating, flushing, intolerance to cold, intolerance to heat, increased hunger, increased thirst, increased urine, unexplained weight gain, unexplained weight loss, other Allergies: Coded Allergies: PNEUMOCOCCAL VACCINE (Unverified Allergy, Unknown, 10/07/18) Subjective 05/15 noncommunicative, was here yesterday and readmitted with ams and copd exacerbation, seen by Sravanthie Objective Objective Current Medications Medications (Trade) Dose Ordered Sig/Nidhi Route PRN Reason Start Time Stop Time Status Last Admin Dose Admin Acetaminophen (Tylenol) 650 mg Q6H PRN ORAL Mild Pain/Temp > 100.5 05/15/19 09:45 06/14/19 09:44 Acetylcysteine (Mucomyst) 200 mg Q4HRT [facility] 05/15/19 11:00 06/14/19 10:59 05/15/19 11:59 Albuterol/ Ipratropium (Albuterol/ Ipratropium) 3 ml Q4HRT [facility] 05/15/19 11:00 05/20/19 10:59 05/15/19 11:59 Amlodipine Besylate (Norvasc) 10 mg DAILY ORAL 05/16/19 09:00 06/15/19 08:59 Benztropine Mesylate (Cogentin) 0.5 mg TWICE A DAY ORAL 05/15/19 18:00 06/14/19 17:59 Dextrose/Sodium Chloride 1,000 ml @ 60 mls/hr [id number] IV 05/15/19 09:45 06/14/19 09:44 05/15/19 09:45 Donepezil HCl (Aricept) 5 mg QHS ORAL 05/15/19 21:00 06/14/19 20:59 Doxycycline Hyclate 100 mg/ Dextrose 110 ml @ 110 mls/hr Q12HR IV 05/15/19 21:00 05/22/19 20:59 Heparin Sodium (Porcine) (Heparin 5000 units/ml) 5,000 units EVERY 12 HOURS SUBQ 05/15/19 21:00 06/14/19 20:59 Levetiracetam (Keppra) 1,500 mg Q12HR ORAL 05/15/19 21:00 06/14/19 20:59 Mirtazapine (Remeron) 7.5 mg BEDTIME ORAL 05/15/19 21:00 06/14/19 20:59 Ondansetron HCl (Zofran) 4 mg Q8H PRN IVP Nausea & Vomiting 05/15/19 09:45 06/14/19 09:44 Piperacillin Sod/ Tazobactam Sod 3.375 gm/Sodium Chloride 110 ml @ 27.5 mls/hr Q8HR IVPB 05/15/19 14:00 05/22/19 13:59 Quetiapine Fumarate (SEROqueL) 100 mg TWICE A DAY ORAL 05/15/19 18:00 06/14/19 17:59 Vancomycin HCl (Vanco rx to dose) 1 ea DAILY PRN MISC Per rx protocol 05/15/19 09:45 06/14/19 09:44 Vancomycin HCl 750 mg/Dextrose 275 ml @ 183.333 mls/hr Q12HR@0000,1200 IVPB 05/15/19 12:00 05/20/19 11:59 05/15/19 12:13 Last 24 Hour Vital Signs Date Time Temp Pulse Resp B/P (MAP) Pulse Ox O2 Delivery O2 Flow Rate FiO2 05/15/19 12:00 95 16 99 Nasal Cannula 2.0 28 91 16 98 05/15/19 12:00 98 Nasal Cannula 2.0 28 05/15/19 12:00 91 16 98 Nasal Cannula 2.0 28 05/15/19 11:10 Nasal Cannula 2.0 05/15/19 08:38 104 05/15/19 08:00 97.8 113 30 117/68 93 Nasal Cannula 2.0 05/15/19 06:31 97.7 105 24 152/95 94 Nasal Cannula 2.0 05/15/19 04:04 83 19 Nasal Cannula 3.0 05/15/19 04:04 97.7 80 19 125/80 94 Room Air 05/15/19 03:54 97.7 83 19 125/80 (95) 94 Room Air Intake and Output 05/14/19 05/15/19 18:59 06:59 Intake Total 0 ml Balance 0 ml Intake Oral 0 ml Labs Test 05/15/19 04:20 05/15/19 05:00 White Blood Count 12.0 K/UL (4.8-10.8) Red Blood Count 4.92 M/UL (4.70-6.10) Hemoglobin 15.2 G/DL (14.2-18.0) Hematocrit 46.9 % (42.0-52.0) Mean Corpuscular Volume 95 FL (80-99) Mean Corpuscular Hemoglobin 30.8 PG (27.0-31.0) Mean Corpuscular Hemoglobin Concent 32.4 G/DL (32.0-36.0) Red Cell Distribution Width 13.7 % (11.6-14.8) Platelet Count 334 K/UL (150-450) Mean Platelet Volume 5.6 FL (6.5-10.1) Neutrophils (%) (Auto) 69.2 % (45.0-75.0) Lymphocytes (%) (Auto) 21.3 % (20.0-45.0) Monocytes (%) (Auto) 7.3 % (1.0-10.0) Eosinophils (%) (Auto) 1.1 % (0.0-3.0) Basophils (%) (Auto) 1.1 % (0.0-2.0) Sodium Level 142 MMOL/L (136-145) Potassium Level 4.4 MMOL/L (3.5-5.1) Chloride Level 105 MMOL/L (98-107) Carbon Dioxide Level 30 MMOL/L (21-32) Anion Gap 7 mmol/L (5-15) Blood Urea Nitrogen 9 mg/dL (7-18) Creatinine 1.0 MG/DL (0.55-1.30) Estimat Glomerular Filtration Rate mL/min (>60) Glucose Level 94 MG/DL (74-106) Lactic Acid Level 0.80 mmol/L (0.4-2.0) Calcium Level 10.2 MG/DL (8.5-10.1) Total Bilirubin 0.6 MG/DL (0.2-1.0) Aspartate Amino Transf (AST/SGOT) 71 U/L (15-37) Alanine Aminotransferase (ALT/SGPT) 59 U/L (12-78) Alkaline Phosphatase 170 U/L (46-116) Troponin I 0.015 ng/mL (0.000-0.056) Pro-B-Type Natriuretic Peptide 38 pg/mL (0-125) Total Protein 8.7 G/DL (6.4-8.2) Albumin 3.3 G/DL (3.4-5.0) Globulin 5.4 g/dL Albumin/Globulin Ratio 0.6 (1.0-2.7) Urine Color Yellow Urine Appearance Clear Urine pH 5 (4.5-8.0) Urine Specific [place] 1.020 (1.005-1.035) Urine Protein 1+ (NEGATIVE) Urine Glucose (UA) Negative (NEGATIVE) Urine Ketones 3+ (NEGATIVE) Urine Blood 3+ (NEGATIVE) Urine Nitrite Negative (NEGATIVE) Urine Bilirubin Negative (NEGATIVE) Urine Urobilinogen 1 MG/DL (0.0-1.0) Urine Leukocyte Esterase Negative (NEGATIVE) Urine RBC 15-20 /HPF (0 - 0) Urine WBC 2-4 /HPF (0 - 0) Urine Squamous Epithelial Cells Few /LPF (NONE/OCC) Urine Bacteria Few /HPF (NONE) Micro Microbiology Date/Time Source Procedure Growth Status 05/15/19 04:20 Nasal Nares - Final Complete 05/15/19 04:20 Nasal Nares - Final Complete Height (Feet): 6 Height (Inches): 0.00 Weight (Pounds): 180 Objective Gen: ill appearing, chronically Pulm: wheezing mild noted b/l CV: rrr, no mgr Abd: soft, nt, nd Ext: no cce Ignacio Ponce MD May 15, 2019 12:25
--- NOTE | 2019-05-15 12:36 | Infectious Diseases Prog Note ---
Assessment/Plan Assessment/Plan A: Sepsis COPD exacerbation, Atelectasis hypoxemia, hypertension, dementia. Hypercalcemia P; Continue Zosyn & Doxycycline CT scan of abdomen & pelvis Subjective ROS Limited/Unobtainable: No Constitutional: Reports: fever, anorexia, other - in correction Respiratory: Reports: other - cough Allergies: Coded Allergies: PNEUMOCOCCAL VACCINE (Unverified Allergy, Unknown, 10/07/18) Objective Vital Signs Last 24 Hour Vital Signs Date Time Temp Pulse Resp B/P (MAP) Pulse Ox O2 Delivery O2 Flow Rate FiO2 05/15/19 12:00 95 16 99 Nasal Cannula 2.0 28 91 16 98 05/15/19 12:00 98 Nasal Cannula 2.0 28 05/15/19 12:00 91 16 98 Nasal Cannula 2.0 28 05/15/19 12:00 2.0 05/15/19 11:10 Nasal Cannula 2.0 05/15/19 08:38 104 05/15/19 08:00 97.8 113 30 117/68 93 Nasal Cannula 2.0 05/15/19 06:31 97.7 105 24 152/95 94 Nasal Cannula 2.0 05/15/19 04:04 83 19 Nasal Cannula 3.0 05/15/19 04:04 97.7 80 19 125/80 94 Room Air 05/15/19 03:54 97.7 83 19 125/80 (95) 94 Room Air Height (Feet): 6 Height (Inches): 0.00 Weight (Pounds): 180 General Appearance: no acute distress HEENT: mucous membranes moist Respiratory/Chest: lungs clear Cardiovascular: normal rate Abdomen: soft, non tender Extremities: no edema Neurologic/Psychiatric: other - lethargic , opens eyes Microbiology Date/Time Source Procedure Growth Status 05/15/19 04:20 Nasal Nares - Final Complete 05/15/19 04:20 Nasal Nares - Final Complete Laboratory Tests Test 05/15/19 04:20 05/15/19 05:00 White Blood Count 12.0 K/UL (4.8-10.8) H Red Blood Count 4.92 M/UL (4.70-6.10) Hemoglobin 15.2 G/DL (14.2-18.0) Hematocrit 46.9 % (42.0-52.0) Mean Corpuscular Volume 95 FL (80-99) Mean Corpuscular Hemoglobin 30.8 PG (27.0-31.0) Mean Corpuscular Hemoglobin Concent 32.4 G/DL (32.0-36.0) Red Cell Distribution Width 13.7 % (11.6-14.8) Platelet Count 334 K/UL (150-450) Mean Platelet Volume 5.6 FL (6.5-10.1) L Neutrophils (%) (Auto) 69.2 % (45.0-75.0) Lymphocytes (%) (Auto) 21.3 % (20.0-45.0) Monocytes (%) (Auto) 7.3 % (1.0-10.0) Eosinophils (%) (Auto) 1.1 % (0.0-3.0) Basophils (%) (Auto) 1.1 % (0.0-2.0) Sodium Level 142 MMOL/L (136-145) Potassium Level 4.4 MMOL/L (3.5-5.1) Chloride Level 105 MMOL/L (98-107) Carbon Dioxide Level 30 MMOL/L (21-32) Anion Gap 7 mmol/L (5-15) Blood Urea Nitrogen 9 mg/dL (7-18) Creatinine 1.0 MG/DL (0.55-1.30) Estimat Glomerular Filtration Rate mL/min (>60) Glucose Level 94 MG/DL (74-106) Lactic Acid Level 0.80 mmol/L (0.4-2.0) Calcium Level 10.2 MG/DL (8.5-10.1) H Total Bilirubin 0.6 MG/DL (0.2-1.0) Aspartate Amino Transf (AST/SGOT) 71 U/L (15-37) H Alanine Aminotransferase (ALT/SGPT) 59 U/L (12-78) Alkaline Phosphatase 170 U/L (46-116) H Troponin I 0.015 ng/mL (0.000-0.056) Pro-B-Type Natriuretic Peptide 38 pg/mL (0-125) Total Protein 8.7 G/DL (6.4-8.2) H Albumin 3.3 G/DL (3.4-5.0) L Globulin 5.4 g/dL Albumin/Globulin Ratio 0.6 (1.0-2.7) L Urine Color Yellow Urine Appearance Clear Urine pH 5 (4.5-8.0) Urine Specific [place] 1.020 (1.005-1.035) Urine Protein 1+ (NEGATIVE) H Urine Glucose (UA) Negative (NEGATIVE) Urine Ketones 3+ (NEGATIVE) H Urine Blood 3+ (NEGATIVE) H Urine Nitrite Negative (NEGATIVE) Urine Bilirubin Negative (NEGATIVE) Urine Urobilinogen 1 MG/DL (0.0-1.0) H Urine Leukocyte Esterase Negative (NEGATIVE) Urine RBC 15-20 /HPF (0 - 0) H Urine WBC 2-4 /HPF (0 - 0) Urine Squamous Epithelial Cells Few /LPF (NONE/OCC) Urine Bacteria Few /HPF (NONE) Current Medications Medications (Trade) Dose Ordered Sig/Nidhi Route PRN Reason Start Time Stop Time Status Last Admin Dose Admin Acetaminophen (Tylenol) 650 mg Q6H PRN ORAL Mild Pain/Temp > 100.5 05/15/19 09:45 06/14/19 09:44 Acetylcysteine (Mucomyst) 200 mg Q4HRT [facility] 05/15/19 11:00 06/14/19 10:59 05/15/19 11:59 Albuterol/ Ipratropium (Albuterol/ Ipratropium) 3 ml Q4HRT N 05/15/19 11:00 05/20/19 10:59 05/15/19 11:59 Amlodipine Besylate (Norvasc) 10 mg DAILY ORAL 05/16/19 09:00 06/15/19 08:59 Benztropine Mesylate (Cogentin) 0.5 mg TWICE A DAY ORAL 05/15/19 18:00 06/14/19 17:59 Dextrose/Sodium Chloride 1,000 ml @ 60 mls/hr [id number] IV 05/15/19 09:45 06/14/19 09:44 05/15/19 09:45 Donepezil HCl (Aricept) 5 mg QHS ORAL 05/15/19 21:00 06/14/19 20:59 Doxycycline Hyclate 100 mg/ Dextrose 110 ml @ 110 mls/hr Q12HR IV 05/15/19 21:00 05/22/19 20:59 Heparin Sodium (Porcine) (Heparin 5000 units/ml) 5,000 units EVERY 12 HOURS SUBQ 05/15/19 21:00 06/14/19 20:59 Levetiracetam (Keppra) 1,500 mg Q12HR ORAL 05/15/19 21:00 06/14/19 20:59 Mirtazapine (Remeron) 7.5 mg BEDTIME ORAL 05/15/19 21:00 06/14/19 20:59 Ondansetron HCl (Zofran) 4 mg Q8H PRN IVP Nausea & Vomiting 05/15/19 09:45 06/14/19 09:44 Piperacillin Sod/ Tazobactam Sod 3.375 gm/Sodium Chloride 110 ml @ 27.5 mls/hr Q8HR IVPB 05/15/19 14:00 05/22/19 13:59 Quetiapine Fumarate (SEROqueL) 100 mg TWICE A DAY ORAL 05/15/19 18:00 06/14/19 17:59 Vancomycin HCl (Vanco rx to dose) 1 ea DAILY PRN MISC Per rx protocol 05/15/19 09:45 06/14/19 09:44 Vancomycin HCl 750 mg/Dextrose 275 ml @ 183.333 mls/hr Q12HR@0000,1200 IVPB 05/15/19 12:00 05/20/19 11:59 05/15/19 12:13 Curtis Farah MD May 15, 2019 12:36
--- NOTE | 2019-05-15 12:38 | Cardiology Report ---
APPROVED REPORT EKG Measurement Heart [id number] Normal sinus rhythm Normal ECG
[2019-05-15] MEDS ORDERED: Omnipaque-300 100ml vial INJ PRN (12:45)
--- NOTE | 2019-05-15 15:01 | GI Initial Consult Note ---
History of Present Illness General Date patient seen: May 15, 2019 Time patient seen: 16:44 Reason for Hospitalization: Fever Referring physician: MJ MYERS Reason for Consultation: PEG EVALUATION Present Illness HPI The patient is admitted for respiratory distress, shortness of breath, borderline hypoxia at the usp, and borderline BP at the usp, rule out sepsis, rule out pneumonia. The patient again is a poor historian, cannot give any reliable history. The patient is admitted for pneumonia. Again, cannot get any history from the patient. The patient is a poor historian. The blood pressure was low and borderline saturation at the usp. GI consulted for PEG evaluation. ROS limited, patient is poor historian unable to provide any significant history at this time. Patient was admitted for pneumonia with concerns of silent aspiration. Beside swallow evaluation was unsuccessful due to the patients non compliancy. It was reported by the ST that the patient bit the plastic spoon and began to chew on it. No known history of endoscopy or colonoscopy. POLST reviewed noted only trial period of artificial feeding. Home Meds Reported Medications Levofloxacin* (LEVAQUIN*) 750 Mg Tablet, 750 MG ORAL DAILY for 2 Days, TAB 05/14/19 Mirtazapine (REMERON) 15 Mg Tab.rapdis, 7.5 MG ORAL BEDTIME, TAB 10/07/18 Magnesium Hydroxide (Milk of Magnesia) 400 Mg/5 Ml Oral.susp, 30 ML ORAL DAILY, ML 10/07/18 Benztropine Mesylate (Cogentin) 2 Mg/2 Ml Ampul, 0.5 MG PO BID, AMP 01/06/16 Quetiapine Fumarate* (SEROQUEL*) 100 Mg Tablet, 100 MG ORAL TWICE A DAY, TAB 01/06/16 Levetiracetam (Keppra) 500 Mg/5 Ml Vial, 1500 MG PO BID, VIAL 01/06/16 Donepezil Hcl* (DONEPEZIL HCL*) 5 Mg Tab.rapdis, 5 MG ORAL HS, TAB 01/06/16 Amlodipine Besylate* (AMLODIPINE BESYLATE*) 10 Mg Tablet, 10 MG ORAL DAILY, TAB 01/06/16 Med list reviewed/reconciled: Yes Allergies: Coded Allergies: PNEUMOCOCCAL VACCINE (Unverified Allergy, Unknown, 10/07/18) Patient History PMH Narrative Advanced dementia, hypertension, seizure disorder, history of failure to thrive, history of depression, history of psychosis, history of COPD, protein-calorie malnutrition, and history of head injury. PAST SURGICAL HISTORY: The patient has a surgical scar above the umbilical cord. Social History: Denies: smoking, alcohol use, drug use, other Review of Systems All Other Systems: limited Physical Exam Vital Signs Date Time Temp Pulse Resp B/P (MAP) Pulse Ox O2 Delivery O2 Flow Rate FiO2 05/15/19 03:54 97.7 83 19 125/80 (95) 94 Room Air 05/15/19 04:04 3.0 05/15/19 12:00 28 Sp02 EP Interpretation: reviewed, normal Labs Laboratory Tests Test 05/15/19 04:20 05/15/19 05:00 White Blood Count 12.0 K/UL (4.8-10.8) H Red Blood Count 4.92 M/UL (4.70-6.10) Hemoglobin 15.2 G/DL (14.2-18.0) Hematocrit 46.9 % (42.0-52.0) Mean Corpuscular Volume 95 FL (80-99) Mean Corpuscular Hemoglobin 30.8 PG (27.0-31.0) Mean Corpuscular Hemoglobin Concent 32.4 G/DL (32.0-36.0) Red Cell Distribution Width 13.7 % (11.6-14.8) Platelet Count 334 K/UL (150-450) Mean Platelet Volume 5.6 FL (6.5-10.1) L Neutrophils (%) (Auto) 69.2 % (45.0-75.0) Lymphocytes (%) (Auto) 21.3 % (20.0-45.0) Monocytes (%) (Auto) 7.3 % (1.0-10.0) Eosinophils (%) (Auto) 1.1 % (0.0-3.0) Basophils (%) (Auto) 1.1 % (0.0-2.0) Sodium Level 142 MMOL/L (136-145) Potassium Level 4.4 MMOL/L (3.5-5.1) Chloride Level 105 MMOL/L (98-107) Carbon Dioxide Level 30 MMOL/L (21-32) Anion Gap 7 mmol/L (5-15) Blood Urea Nitrogen 9 mg/dL (7-18) Creatinine 1.0 MG/DL (0.55-1.30) Estimat Glomerular Filtration Rate mL/min (>60) Glucose Level 94 MG/DL (74-106) Lactic Acid Level 0.80 mmol/L (0.4-2.0) Calcium Level 10.2 MG/DL (8.5-10.1) H Total Bilirubin 0.6 MG/DL (0.2-1.0) Aspartate Amino Transf (AST/SGOT) 71 U/L (15-37) H Alanine Aminotransferase (ALT/SGPT) 59 U/L (12-78) Alkaline Phosphatase 170 U/L (46-116) H Troponin I 0.015 ng/mL (0.000-0.056) Pro-B-Type Natriuretic Peptide 38 pg/mL (0-125) Total Protein 8.7 G/DL (6.4-8.2) H Albumin 3.3 G/DL (3.4-5.0) L Globulin 5.4 g/dL Albumin/Globulin Ratio 0.6 (1.0-2.7) L Urine Color Yellow Urine Appearance Clear Urine pH 5 (4.5-8.0) Urine Specific [place] 1.020 (1.005-1.035) Urine Protein 1+ (NEGATIVE) H Urine Glucose (UA) Negative (NEGATIVE) Urine Ketones 3+ (NEGATIVE) H Urine Blood 3+ (NEGATIVE) H Urine Nitrite Negative (NEGATIVE) Urine Bilirubin Negative (NEGATIVE) Urine Urobilinogen 1 MG/DL (0.0-1.0) H Urine Leukocyte Esterase Negative (NEGATIVE) Urine RBC 15-20 /HPF (0 - 0) H Urine WBC 2-4 /HPF (0 - 0) Urine Squamous Epithelial Cells Few /LPF (NONE/OCC) Urine Bacteria Few /HPF (NONE) General Appearance: no apparent distress Head: normocephalic EENT: PERRL/EOMI, normal ENT inspection Neck: supple Respiratory: normal breath sounds, no respiratory distress Cardiovascular: normal rate Gastrointestinal: normal inspection, non tender, soft, normal bowel sounds, non -distended Rectal: deferred Genitourinary: deferred Musculoskeletal: normal inspection, back normal Neurologic: alert, responsive, normal inspection, other - confused Skin: normal inspection, normal color, no rash, warm/dry, palpation normal, well hydrated Lymphatic: normal inspection, no adenopathy Current Medications Current Medications Medications (Trade) Dose Ordered Sig/Nidhi Route PRN Reason Start Time Stop Time Status Last Admin Dose Admin Acetaminophen (Tylenol) 650 mg Q6H PRN ORAL Mild Pain/Temp > 100.5 05/15/19 09:45 06/14/19 09:44 Acetylcysteine (Mucomyst) 200 mg Q4HRT N 05/15/19 11:00 06/14/19 10:59 05/15/19 11:59 Albuterol/ Ipratropium (Albuterol/ Ipratropium) 3 ml Q4HRT N 05/15/19 11:00 05/20/19 10:59 05/15/19 11:59 Amlodipine Besylate (Norvasc) 10 mg DAILY ORAL 05/16/19 09:00 06/15/19 08:59 Barium Sulfate (Readi-Cat 2) 450 ml NOW PRN ORAL Radiology Procedure 05/15/19 12:45 05/17/19 12:36 Benztropine Mesylate (Cogentin) 0.5 mg TWICE A DAY ORAL 05/15/19 18:00 06/14/19 17:59 Dextrose/Sodium Chloride 1,000 ml @ 60 mls/hr [id number] IV 05/15/19 09:45 06/14/19 09:44 05/15/19 09:45 Donepezil HCl (Aricept) 5 mg QHS ORAL 05/15/19 21:00 06/14/19 20:59 Doxycycline Hyclate 100 mg/ Dextrose 110 ml @ 110 mls/hr Q12HR IV 05/15/19 21:00 05/22/19 20:59 Heparin Sodium (Porcine) (Heparin 5000 units/ml) 5,000 units EVERY 12 HOURS SUBQ 05/15/19 21:00 06/14/19 20:59 Iohexol (OMNIPAQUE-300 100ml) 100 ml NOW PRN INJ Radiology Procedure 05/15/19 12:45 05/17/19 12:36 Levetiracetam (Keppra) 1,500 mg Q12HR ORAL 05/15/19 21:00 06/14/19 20:59 Mirtazapine (Remeron) 7.5 mg BEDTIME ORAL 05/15/19 21:00 06/14/19 20:59 Ondansetron HCl (Zofran) 4 mg Q8H PRN IVP Nausea & Vomiting 05/15/19 09:45 06/14/19 09:44 Piperacillin Sod/ Tazobactam Sod 3.375 gm/Sodium Chloride 110 ml @ 27.5 mls/hr Q8HR IVPB 05/15/19 14:00 05/22/19 13:59 Quetiapine Fumarate (SEROqueL) 100 mg TWICE A DAY ORAL 05/15/19 18:00 06/14/19 17:59 Vancomycin HCl (Vanco rx to dose) 1 ea DAILY PRN MISC Per rx protocol 05/15/19 09:45 06/14/19 09:44 Vancomycin HCl 750 mg/Dextrose 275 ml @ 183.333 mls/hr Q12HR@0000,1200 IVPB 05/15/19 12:00 05/20/19 11:59 05/15/19 12:13 GI: Plan Problems: (1) Dysphagia (2) PEG (percutaneous endoscopic gastrostomy) adjustment/replacement/removal (3) PNA (pneumonia) (4) Protein-calorie malnutrition, severe (5) Dehydration Plan maintain patient NPO given the possibility of possible silent aspiration the patient needs a video swallow study, but given his dementia and non- compliant behaviors I doubt this will happen will insert NGT for now, start GTFs after imaging confirmation will attempt video swallow study tomorrow. POLST reviewed noted only for trial artificial feeding, NO adjunct faculty for medical terminology artificial feeding. will contact family for decision will follow with additional recommendations Discussed with Dr. Anton. Thank you for this patient referral, we will follow. Cleveland Sinha FAMILY RESOURCE COORDINATOR May 15, 2019 15:01
[2019-05-15] MEDS: Piperacillin/Tazobactam 3.375 GM in NS 110 ML IVPB SCH ×2 (15:06→22:25)
[2019-05-15 16:00] VITALS: BP 128/67
[2019-05-15 17:56] LABS: APPEARANCE,URINE CLEAR; BILIRUBIN, URINE NEGATIVE (NEGATIVE); GLUCOSE, URINE (UA) NEGATIVE (NEGATIVE); KETONES,URINE 3+ (NEGATIVE); LEUKOCYTE ESTERASE ,URINE 1+ (NEGATIVE); NITRITE,URINE NEGATIVE (NEGATIVE); PH,URINE 5 (4.5-8.0); PROTEIN,URINE 2+ (NEGATIVE); UROBILINOGEN,URINE 1 MG/DL (0.0-1.0)
[2019-05-15 17:58] LABS: COLOR,URINE YELLOW
[2019-05-15] MEDS: Benztropine 1mg tab ORAL SCH (18:00)
--- NOTE | 2019-05-15 19:02 | Consultation ---
History of Present Illness General Date patient seen: May 15, 2019 Chief Complaint: Fever Referring physician: MJ MYERS Present Illness HPI This is a 69-year-old male known to me from his admission. Patient was just discharged less than 24 hours ago and re-presents with fevers and respiratory insufficiency. Leukocytosis 12,000. Chest x-ray with worsening infiltrates. Patient admitted for further care and management. Patient continues to have similar findings as prior to just recent discharge and surgery called to reevaluate and assist with care and management. Given patient's fevers question of potential etiology is from patient's wounds. Patient seen, patient evaluated, chart reviewed Allergies: Coded Allergies: PNEUMOCOCCAL VACCINE (Unverified Allergy, Unknown, 10/07/18) Medication History Scheduled Amlodipine Besylate* (Amlodipine Besylate*), 10 MG ORAL DAILY, (Reported) Benztropine Mesylate (Cogentin), 0.5 MG PO BID, (Reported) Donepezil Hcl* (Donepezil Hcl*), 5 MG ORAL HS, (Reported) Levetiracetam (Keppra), 1,500 MG PO BID, (Reported) Levofloxacin* (Levaquin*), 750 MG ORAL DAILY, (Reported) Magnesium Hydroxide (Milk of Magnesia), 30 ML ORAL DAILY, (Reported) Mirtazapine (Remeron), 7.5 MG ORAL BEDTIME, (Reported) Quetiapine Fumarate* (Seroquel*), 100 MG ORAL TWICE A DAY, (Reported) Patient History Limited by: age, medical condition History Provided By: Medical Record, PMD Healthcare decision maker Resuscitation status Advanced Directive on File Past Medical/Surgical History Past Medical/Surgical History: (1) HCAP (healthcare-associated pneumonia) (2) Hypercalcemia (3) Leukocytosis (4) Schizophrenia (5) Syncope (6) Lung mass (7) UTI (urinary tract infection) (8) Head injury (9) Lactic acid acidosis (10) Severe sepsis (11) Congestion secondary to upper respiratory illness (12) Decubitus skin ulcer (13) COPD (chronic obstructive pulmonary disease) (14) Acute febrile illness (15) Dehydration (16) Dysphagia (17) PEG (percutaneous endoscopic gastrostomy) adjustment/replacement/removal (18) Protein-calorie malnutrition, severe (19) PNA (pneumonia) (20) Fever Review of Systems ROS Narrative cannot obtain given patients medical condition Physical Exam General Appearance: no apparent distress Lines, tubes and drains: peripheral HEENT: mucous membranes moist Neck: normal inspection Respiratory/Chest: decreased breath sounds Cardiovascular/Chest: normal rate Abdomen: soft, no organomegaly, no mass Extremities: other Skin Exam: warm/dry Last 24 Hour Vital Signs Date Time Temp Pulse Resp B/P (MAP) Pulse Ox O2 Delivery O2 Flow Rate FiO2 05/15/19 16:00 97.5 87 20 128/67 (87) 97 05/15/19 16:00 93 05/15/19 16:00 2.0 05/15/19 15:33 93 18 99 Nasal Cannula 2.0 28 91 18 97 05/15/19 12:00 95 05/15/19 12:00 95 16 99 Nasal Cannula 2.0 28 91 16 98 05/15/19 12:00 98 Nasal Cannula 2.0 28 05/15/19 12:00 91 16 98 Nasal Cannula 2.0 28 05/15/19 12:00 97.9 89 20 133/78 (96) 100 05/15/19 12:00 2.0 05/15/19 11:10 Nasal Cannula 2.0 05/15/19 08:38 104 05/15/19 08:30 98.1 108 20 114/94 (101) 95 05/15/19 08:00 97.8 113 30 117/68 93 Nasal Cannula 2.0 05/15/19 06:31 97.7 105 24 152/95 94 Nasal Cannula 2.0 05/15/19 04:04 83 19 Nasal Cannula 3.0 05/15/19 04:04 97.7 80 19 125/80 94 Room Air 05/15/19 03:54 97.7 83 19 125/80 (95) 94 Room Air Intake and Output 05/14/19 05/15/19 19:00 07:00 Intake Total 0 ml Balance 0 ml Intake Oral 0 ml Laboratory Tests Test 05/15/19 04:20 05/15/19 05:00 05/15/19 17:40 White Blood Count 12.0 K/UL (4.8-10.8) H Red Blood Count 4.92 M/UL (4.70-6.10) Hemoglobin 15.2 G/DL (14.2-18.0) Hematocrit 46.9 % (42.0-52.0) Mean Corpuscular Volume 95 FL (80-99) Mean Corpuscular Hemoglobin 30.8 PG (27.0-31.0) Mean Corpuscular Hemoglobin Concent 32.4 G/DL (32.0-36.0) Red Cell Distribution Width 13.7 % (11.6-14.8) Platelet Count 334 K/UL (150-450) Mean Platelet Volume 5.6 FL (6.5-10.1) L Neutrophils (%) (Auto) 69.2 % (45.0-75.0) Lymphocytes (%) (Auto) 21.3 % (20.0-45.0) Monocytes (%) (Auto) 7.3 % (1.0-10.0) Eosinophils (%) (Auto) 1.1 % (0.0-3.0) Basophils (%) (Auto) 1.1 % (0.0-2.0) Sodium Level 142 MMOL/L (136-145) Potassium Level 4.4 MMOL/L (3.5-5.1) Chloride Level 105 MMOL/L (98-107) Carbon Dioxide Level 30 MMOL/L (21-32) Anion Gap 7 mmol/L (5-15) Blood Urea Nitrogen 9 mg/dL (7-18) Creatinine 1.0 MG/DL (0.55-1.30) Estimat Glomerular Filtration Rate mL/min (>60) Glucose Level 94 MG/DL (74-106) Lactic Acid Level 0.80 mmol/L (0.4-2.0) Calcium Level 10.2 MG/DL (8.5-10.1) H Total Bilirubin 0.6 MG/DL (0.2-1.0) Aspartate Amino Transf (AST/SGOT) 71 U/L (15-37) H Alanine Aminotransferase (ALT/SGPT) 59 U/L (12-78) Alkaline Phosphatase 170 U/L (46-116) H Troponin I 0.015 ng/mL (0.000-0.056) Pro-B-Type Natriuretic Peptide 38 pg/mL (0-125) Total Protein 8.7 G/DL (6.4-8.2) H Albumin 3.3 G/DL (3.4-5.0) L Globulin 5.4 g/dL Albumin/Globulin Ratio 0.6 (1.0-2.7) L Urine Color Yellow Yellow Urine Appearance Clear Clear Urine pH 5 (4.5-8.0) 5 (4.5-8.0) Urine Specific [place] 1.020 (1.005-1.035) 1.020 (1.005-1.035) Urine Protein 1+ (NEGATIVE) H 2+ (NEGATIVE) H Urine Glucose (UA) Negative (NEGATIVE) Negative (NEGATIVE) Urine Ketones 3+ (NEGATIVE) H 3+ (NEGATIVE) H Urine Blood 3+ (NEGATIVE) H 1+ (NEGATIVE) H Urine Nitrite Negative (NEGATIVE) Negative (NEGATIVE) Urine Bilirubin Negative (NEGATIVE) Negative (NEGATIVE) Urine Urobilinogen 1 MG/DL (0.0-1.0) H 1 MG/DL (0.0-1.0) H Urine Leukocyte Esterase Negative (NEGATIVE) 1+ (NEGATIVE) H Urine RBC 15-20 /HPF (0 - 0) H 2-4 /HPF (0 - 0) H Urine WBC 2-4 /HPF (0 - 0) 2-4 /HPF (0 - 0) Urine Squamous Epithelial Cells Few /LPF (NONE/OCC) None /LPF (NONE/OCC) Urine Bacteria Few /HPF (NONE) Few /HPF (NONE) Microbiology Date/Time Source Procedure Growth Status 05/15/19 04:20 Nasal Nares - Final Complete 05/15/19 04:20 Nasal Nares - Final Complete Height (Feet): 6 Height (Inches): 0.00 Weight (Pounds): 180 Medications Current Medications Medications (Trade) Dose Ordered Sig/Nidhi Route PRN Reason Start Time Stop Time Status Last Admin Dose Admin Acetaminophen (Tylenol) 650 mg Q6H PRN ORAL Mild Pain/Temp > 100.5 05/15/19 09:45 06/14/19 09:44 Acetylcysteine (Mucomyst) 200 mg Q4HRT [facility] 05/15/19 11:00 06/14/19 10:59 05/15/19 15:34 Albuterol/ Ipratropium (Albuterol/ Ipratropium) 3 ml Q4HRT [facility] 05/15/19 11:00 05/20/19 10:59 05/15/19 15:34 Amlodipine Besylate (Norvasc) 10 mg DAILY ORAL 05/16/19 09:00 06/15/19 08:59 Barium Sulfate (Readi-Cat 2) 450 ml NOW PRN ORAL Radiology Procedure 05/15/19 12:45 05/17/19 12:36 Benztropine Mesylate (Cogentin) 0.5 mg TWICE A DAY ORAL 05/15/19 18:00 06/14/19 17:59 Dextrose/Sodium Chloride 1,000 ml @ 60 mls/hr [id number] IV 05/15/19 09:45 06/14/19 09:44 05/15/19 09:45 Donepezil HCl (Aricept) 5 mg QHS ORAL 05/15/19 21:00 06/14/19 20:59 Doxycycline Hyclate 100 mg/ Dextrose 110 ml @ 110 mls/hr Q12HR IV 05/15/19 21:00 05/22/19 20:59 Heparin Sodium (Porcine) (Heparin 5000 units/ml) 5,000 units EVERY 12 HOURS SUBQ 05/15/19 21:00 06/14/19 20:59 Iohexol (OMNIPAQUE-300 100ml) 100 ml NOW PRN INJ Radiology Procedure 05/15/19 12:45 05/17/19 12:36 Levetiracetam (Keppra) 1,500 mg Q12HR ORAL 05/15/19 21:00 06/14/19 20:59 Mirtazapine (Remeron) 7.5 mg BEDTIME ORAL 05/15/19 21:00 06/14/19 20:59 Ondansetron HCl (Zofran) 4 mg Q8H PRN IVP Nausea & Vomiting 05/15/19 09:45 06/14/19 09:44 Piperacillin Sod/ Tazobactam Sod 3.375 gm/Sodium Chloride 110 ml @ 27.5 mls/hr Q8HR IVPB 05/15/19 14:00 05/22/19 13:59 05/15/19 15:06 Quetiapine Fumarate (SEROqueL) 100 mg TWICE A DAY ORAL 05/15/19 18:00 06/14/19 17:59 Vancomycin HCl (Vanco rx to dose) 1 ea DAILY PRN MISC Per rx protocol 05/15/19 09:45 06/14/19 09:44 Vancomycin HCl 750 mg/Dextrose 275 ml @ 183.333 mls/hr Q12HR@0000,1200 IVPB 05/15/19 12:00 05/20/19 11:59 05/15/19 12:13 Assessment/Plan Problem List: (1) Protein-calorie malnutrition, severe Assessment & Plan: (1) Decubitus skin ulcer Assessment & Plan: Pt presented on admission with DTPI sacrum with surrounding non-blanching erythema over historical scar from previous wound. An area of induration noted to sacrococcygeal area measuring (L)2.5cm x (W)2cm. Non-blanching erythema R heel with an area of fluctuance and maroon at lateral aspect of heel(L)3cm x (W)2.5cm . Pt exhibited agitation when affected area minimally palpated. L heel is boggy with non-blanching erythema. Shaft and penile head including scrotum are erythematous. Tx.Plan: Apply Moisture Barrier Paste to sacrum. Cover with Optifoam drsg. Change every 3 days and prn. Apply Triad Paste to penis scrotum and groin areas with each incontinence care. Apply [place] Skin Barrier to both heel. Cover each heel with Optifoam drsg. Change every 7 days and prn. Reposition at least every 2hours or as tolerated. Off-load heels with pillow. APM/CHRISTOPHER Mattress overlay. (2) Leukocytosis likely related to pulm infiltrate wounds do not clinically look infected abx for pna pulm input abx as per ID (3) xxx (4) Protein-calorie malnutrition, severe Assessment & Plan: PEG (5) Lung mass Assessment & Plan: 2 cm pleural-based masslike opacity containing multiple nodular calcifications andadjacent parenchymal linear density persists in the anterolateral periphery of thelateral segment right middle lobe, unchanged. Adjacent small nodular parenchymaldensities persist, unchanged. Small irregular pleural-based linear densities persist in the dependent portions of both lung bases, unchanged. No new pulmonary parenchymal abnormality demonstrated. No pleural disease is evident. Nodularcalcification in right hilum unchanged. Clustered calcified nodules in the subcarinal region of mediastinum unchanged. No new mediastinal or hilar enlarged lymph nodes. Heart remains normal in size. No pericardial abnormality. Centralmediastinal vasculature remains unremarkable in appearance. noted prior in 2017. no path available cxr noted may repeat CT chest once improving ICD Codes: E43 - Unspecified severe protein-calorie malnutrition SNOMED: [id number] Gabino Little May 15, 2019 19:02
[2019-05-15 20:00] VITALS: BP 120/64
--- NOTE | 2019-05-15 20:30 | Consultation ---
DATE OF CONSULTATION: 05/15/2019 CARDIOLOGY CONSULTATION CONSULTING PHYSICIAN: Sajan Altman M.D. REFERRING PHYSICIAN: Konrad Soares M.D. REASON FOR CONSULTATION: Management of shortness of breath. HISTORY OF PRESENT ILLNESS: The patient is a very unfortunate 69-year-old gentleman, who was recently admitted to this facility with respiratory distress from nursing facility. He was found to be hypoxic. In the course of his hospitalization, he was diagnosed with chronic obstructive pulmonary disease and healthcare-associated pneumonia and received IV antibiotics, oxygen therapy, as well as inhalers. He was seen by Pulmonary as well as Infectious Disease specialist. The patient had a chest x-ray on 05/12/2019, was significant for bilateral basilar atelectasis, but no acute cardiopulmonary disease with hypoventilatory lungs. He was discharged back to the nursing facility. However, due to high fever of 102 degrees Fahrenheit as well as increased congestion, was brought back to this hospital. Initial blood pressure at the time of emergency department evaluation was 125/80 and heart rate was 83. Heart rate katelyn to 105. A 12-lead electrocardiogram was significant for sinus rhythm at a rate of 85 with no acute ischemic changes. Repeat of chest x-ray today showed the same as before including low lung volumes with streaky airspace opacity, which was considered to be new in both bases. Infectious infiltrate could not be excluded, as a result the patient was admitted to telemetry for further evaluation and management. Cardiology consultation was made at the request of Dr. Soares for evaluation of dyspnea from the cardiac standpoint. At the time of arrival to this hospital, WBC count was elevated at 12.0 and chemistry had revealed hypercalcemia, but normal pro-brain natriuretic peptide which is compatible for normal intracardiac filling pressures and excludes congestive heart failure. Initial troponin I level was 0.015. PAST MEDICAL HISTORY: 1. History of encephalopathy. 2. History of respiratory failure. 3. History of diverticulosis. 4. History of hypertension. 5. History of seizures. 6. History of syncope. PAST SURGICAL HISTORY: None. ALLERGIES: Pneumococcal vaccine. MEDICATIONS: List of medications from nursing facility includes amlodipine 10 mg p.o. daily, Cogentin 0.5 mg twice daily, donepezil 5 mg nightly, Keppra 1500 mg twice daily, Levaquin 750 mg daily, milk of magnesia 30 mL daily, Remeron 7.5 mg nightly, and Seroquel 100 mg twice daily. SOCIAL HISTORY: Resident of a nursing facility. No current history of tobacco, alcohol, or illicit drug use. REVIEW OF SYSTEMS: The patient is nonverbal and 12-system review could not be done as a result. PHYSICAL EXAMINATION: VITAL SIGNS: Blood pressure at time of arrival to this facility was 125/80, heart rate of 105, and respirations 24. O2 saturation 94% on 2 L oxygen. GENERAL: The patient is a very unfortunate 69-year-old gentleman, who is nonverbal with lot of gargling sounds coming from the upper respiratory tract. HEENT: Atraumatic and normocephalic. Anicteric sclerae. Pupils are equal, round, and reactive to light and accommodation. Extraocular muscles intact. NECK: JVP less than 5 cm. No carotid bruit. Carotid upstroke is 2+ bilaterally. CARDIOVASCULAR: Normal S1, S2. Regular rate and rhythm. Tachycardic. No murmurs, gallops, or rubs. PMI is at fourth intercostal space in the midclavicular line. LUNGS: Diminished breath sounds in both bases with associated crackles. ABDOMEN: Soft, nontender, and nondistended. No hepatosplenomegaly. Positive bowel sounds. EXTREMITIES: No evidence of edema, clubbing, or cyanosis. LABORATORY FINDINGS: WBC 12.0, hemoglobin 15.2, hematocrit 46.9, and platelet count 234,000. Sodium 142, potassium 4.4, chloride 105, bicarbonate 30, BUN 9, and creatinine 1.0. Glucose 94. Calcium is 10.2. Troponin I was 0.015. ProBNP was 38. ASSESSMENT AND PLAN: The patient is a very unfortunate 69-year-old gentleman, who was seen in Cardiology consultation. 1. Dyspnea. This is most likely due to underlying bilateral healthcare-associated pneumonia. Continue IV antibiotics. Pulmonary and Infectious Disease consultations. We will like to obtain 2D echocardiography for assessment of the systolic and diastolic function. Normal beta-natriuretic peptide essentially rules out congestive heart failure. 2. History of chronic obstructive pulmonary disease. 3. History of encephalopathy, nonverbal status. 4. History of seizure disorder, on Keppra. 5. Sinus tachycardia, most likely due to infection and hypoxemia. We will continue with conservative management. There is no need for administration of beta blockers or other AV anjum agents. 6. History of hypertension. The patient will be continued on amlodipine 10 mg daily. I would like to thank Dr. Soares for allowing me to participate in the care of this patient. Sajan Altman M.D. DR: REYNA JOB#: [id number] CC:
--- NOTE | 2019-05-15 20:45 | General Progress Note ---
Assessment/Plan Problem List: (1) PNA (pneumonia) ICD Codes: J18.9 - Pneumonia, unspecified organism SNOMED: 318236127 (2) Fever ICD Codes: R50.9 - Fever, unspecified SNOMED: 711770582 (3) Protein-calorie malnutrition, severe ICD Codes: E43 - Unspecified severe protein-calorie malnutrition SNOMED: 524366513 (4) Dysphagia ICD Codes: R13.10 - Dysphagia, unspecified SNOMED: 73942429, 611537311 (5) Decubitus skin ulcer ICD Codes: L89.90 - Pressure ulcer of unspecified site, unspecified stage SNOMED: 545354582 (6) Schizophrenia ICD Codes: F20.9 - Schizophrenia, unspecified SNOMED: 20458412 (7) Acute febrile illness ICD Codes: R50.9 - Fever, unspecified SNOMED: 408099376 Status: progressing Assessment/Plan: afebrile fever readmitted malnutrition st eval r/o apiration risk obs poor historian Subjective ROS Limited/Unobtainable: Yes Allergies: Coded Allergies: PNEUMOCOCCAL VACCINE (Unverified Allergy, Unknown, 10/07/18) Objective Last 24 Hour Vital Signs Date Time Temp Pulse Resp B/P (MAP) Pulse Ox O2 Delivery O2 Flow Rate FiO2 05/15/19 20:06 73 16 98 Nasal Cannula 2.0 28 05/15/19 20:06 79 18 99 Nasal Cannula 2.0 28 75 18 98 05/15/19 20:06 98 Nasal Cannula 2.0 28 05/15/19 16:00 97.5 87 20 128/67 (87) 97 05/15/19 16:00 93 05/15/19 16:00 2.0 05/15/19 15:33 93 18 99 Nasal Cannula 2.0 28 91 18 97 05/15/19 12:00 95 05/15/19 12:00 95 16 99 Nasal Cannula 2.0 28 91 16 98 05/15/19 12:00 98 Nasal Cannula 2.0 28 05/15/19 12:00 91 16 98 Nasal Cannula 2.0 28 05/15/19 12:00 97.9 89 20 133/78 (96) 100 05/15/19 12:00 2.0 05/15/19 11:10 Nasal Cannula 2.0 05/15/19 08:38 104 05/15/19 08:30 98.1 108 20 114/94 (101) 95 05/15/19 08:00 97.8 113 30 117/68 93 Nasal Cannula 2.0 05/15/19 06:31 97.7 105 24 152/95 94 Nasal Cannula 2.0 05/15/19 04:04 83 19 Nasal Cannula 3.0 05/15/19 04:04 97.7 80 19 125/80 94 Room Air 05/15/19 03:54 97.7 83 19 125/80 (95) 94 Room Air Intake and Output 05/14/19 05/15/19 19:00 07:00 Intake Total 0 ml Balance 0 ml Intake Oral 0 ml Laboratory Tests 05/15/19 04:20: White Blood Count 12.0H, Red Blood Count 4.92, Hemoglobin 15.2, Hematocrit 46.9 , Mean Corpuscular Volume 95, Mean Corpuscular Hemoglobin 30.8, Mean Corpuscular Hemoglobin Concent 32.4, Red Cell Distribution Width 13.7, Platelet Count 334, Mean Platelet Volume 5.6L, Neutrophils (%) (Auto) 69.2, Lymphocytes ( %) (Auto) 21.3, Monocytes (%) (Auto) 7.3, Eosinophils (%) (Auto) 1.1, Basophils (%) (Auto) 1.1, Sodium Level 142, Potassium Level 4.4, Chloride Level 105, Carbon Dioxide Level 30, Anion Gap 7, Blood Urea Nitrogen 9, Creatinine 1.0, Estimat Glomerular Filtration Rate , Glucose Level 94, Lactic Acid Level 0.80, Calcium Level 10.2H, Total Bilirubin 0.6, Aspartate Amino Transf (AST/SGOT) 71H , Alanine Aminotransferase (ALT/SGPT) 59, Alkaline Phosphatase 170H, Troponin I 0.015, Pro-B-Type Natriuretic Peptide 38, Total Protein 8.7H, Albumin 3.3L, Globulin 5.4, Albumin/Globulin Ratio 0.6L 05/15/19 05:00: Urine Color Yellow, Urine Appearance Clear, Urine pH 5, Urine Specific [place] 1.020, Urine Protein 1+H, Urine Glucose (UA) Negative, Urine Ketones 3+H, Urine Blood 3+H, Urine Nitrite Negative, Urine Bilirubin Negative, Urine Urobilinogen 1H, Urine Leukocyte Esterase Negative, Urine RBC 15-20H, Urine WBC 2-4, Urine Squamous Epithelial Cells Few, Urine Bacteria Few 05/15/19 17:40: Urine Color Yellow, Urine Appearance Clear, Urine pH 5, Urine Specific [place] 1.020, Urine Protein 2+H, Urine Glucose (UA) Negative, Urine Ketones 3+H, Urine Blood 1+H, Urine Nitrite Negative, Urine Bilirubin Negative, Urine Urobilinogen 1H, Urine Leukocyte Esterase 1+H, Urine RBC 2-4H, Urine WBC 2-4, Urine Squamous Epithelial Cells None, Urine Bacteria Few Height (Feet): 6 Height (Inches): 0.00 Weight (Pounds): 180 Konrad Soares MD May 15, 2019 20:45
[2019-05-15] MEDS: Doxycycline Hyclate 100 MG in D5W 110 ML IV SCH (21:08)
[2019-05-15] MEDS: Donepezil 5mg Tab ORAL SCH (22:18)
[2019-05-15] MEDS: Heparin 5000 units/ml inj SUBQ SCH (22:20)
[2019-05-16] VITALS (8 sets, daily range): BP systolic 111–138; BP diastolic 62–73
[2019-05-16] MEDS: Vancomycin 750mg/D5W 275ml IVPB SCH ×4 (01:20→12:42)
[2019-05-16] MEDS: D5 1/2NS 1,000 ML IV SCH ×3 (02:25→22:06)
[2019-05-16] MEDS: Acetylcysteine 20% Soln 4ml HHN SCH ×6 (03:00→22:43)
--- NOTE | 2019-05-16 03:00 | History and Physical Report ---
DATE OF ADMISSION: 05/15/2019 HISTORY OF PRESENT ILLNESS: The patient was discharged and came back within less than 24 hours of discharge and came back. So please let my latest H and P that I dictated on the previous admission, which was a couple of days ago, to serve as the H and P for this admission as well since the patient came back within 24 hours, this is just an addendum. The patient had a fever of 102 at the custodial. He was admitted with cough and phlegm, rule out pneumonia. PAST MEDICAL HISTORY: Significant for seizure disorder, advanced organic brain syndrome, psychosis, mood disorder. ALLERGIES: Pneumovax vaccine. MEDICATIONS: Norvasc, Klonopin, benazepril, Keppra, Remeron, and Seroquel. FAMILY HISTORY: Unknown, unable to obtain. SOCIAL HISTORY: Unable to obtain, poor historian. REVIEW OF SYSTEMS: Unable to obtain, poor historian. PHYSICAL EXAMINATION: VITAL SIGNS: Temperature is 97.9, blood pressure 128/67. HEENT: PERRLA. CHEST: Bibasilar rhonchi. CARDIOVASCULAR: Regular rate and rhythm. ABDOMEN: Soft. Positive bowel sounds. EXTREMITIES: No edema. Reflexes equal on both sides. ASSESSMENT AND PLAN: Pneumonia. We will get a speech therapy consult as well as a Gastroenterology consult to see if the patient needs a G-tube or not. Defer the decision of G-tube to the industrial real estate agent. I have also asked Dr. Daniel, Dr. Longoria, Dr. Curtis Farah, Dr. Altman, and Dr. Henry to see the patient, rule out fluid overload as well as infectious etiology and treat the pneumonia. We will order a speech study and swallow study. Konrad Soares M.D. DR: Lima JOB#: [id number] CC:
[2019-05-16] MEDS: Albuterol/Ipratropium 3ml neb HHN SCH ×6 (03:43→22:43)
[2019-05-16] MEDS: Piperacillin/Tazobactam 3.375 GM in NS 110 ML IVPB SCH ×3 (05:20→21:46)
--- NOTE | 2019-05-16 06:14 | Hematology/Onc Progress Note ---
Assessment/Plan Assessment/Plan # Hypercalcemia r/o malignancy, r/o myeloma, elevated on admission, may be 2/2 dehydration --> Ca 10.2-->9.5->10.7, pth is wnl, spep is also wnl as is upep --> on iv fluids as per pcp --> renal eval prn --> pth on prior admission was 42 # Multiple lung nodules -- in 2017 2 cm pleural-based masslike opacity containing multiple nodular calcifications andadjacent parenchymal linear density persists in the anterolateral periphery of thelateral segment right middle lobe, unchanged. Adjacent small nodular parenchymaldensities persist, unchanged. 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 Greatly appreciate consultation! Subjective Constitutional: Denies: no symptoms, chills, fever, malaise, weakness, other HEENT: Denies: no symptoms, eye pain, blurred vision, tearing, double vision, ear pain, ear discharge, nose pain, nose congestion, throat pain, throat swelling, mouth pain, mouth swelling, other Cardiovascular: Denies: no symptoms, chest pain, edema, irregular heart rate, lightheadedness, palpitations, syncope, other Respiratory: Denies: no symptoms, cough, shortness of breath, SOB with excertion, SOB at rest, sputum, wheezing, other Gastrointestinal/Abdominal: Denies: no symptoms, abdomen distended, abdominal pain, black stools, tarry stools, blood in stool, constipated, diarrhea, difficulty swallowing, nausea, poor appetite, poor fluid intake, rectal bleeding , vomiting, other Genitourinary: Denies: no symptoms, burning, discharge, frequency, flank pain, hematuria, incontinence, pain, urgency, other Neurologic/Psychiatric: Denies: no symptoms, anxiety, depressed, emotional problems, headache, numbness, paresthesia, pre-existing deficit, seizure, tingling, tremors, weakness, other Allergies: Coded Allergies: PNEUMOCOCCAL VACCINE (Unverified Allergy, Unknown, 10/07/18) Subjective 05/15 noncommunicative, was here yesterday and readmitted with ams and copd exacerbation, seen by Fredy 05/16: ngt in place, placed yesterday, is on fluids, sleepy this am Objective Objective Current Medications Medications (Trade) Dose Ordered Sig/Nidhi Route PRN Reason Start Time Stop Time Status Last Admin Dose Admin Acetaminophen (Tylenol) 650 mg Q6H PRN ORAL Mild Pain/Temp > 100.5 05/15/19 09:45 06/14/19 09:44 Acetylcysteine (Mucomyst) 200 mg Q4HRT [facility] 05/15/19 11:00 06/14/19 10:59 05/16/19 03:00 Albuterol/ Ipratropium (Albuterol/ Ipratropium) 3 ml Q4HRT [facility] 05/15/19 11:00 05/20/19 10:59 05/16/19 03:43 Amlodipine Besylate (Norvasc) 10 mg DAILY ORAL 05/16/19 09:00 06/15/19 08:59 Barium Sulfate (Readi-Cat 2) 450 ml NOW PRN ORAL Radiology Procedure 05/15/19 12:45 05/17/19 12:36 Benztropine Mesylate (Cogentin) 0.5 mg TWICE A DAY ORAL 05/15/19 18:00 06/14/19 17:59 Dextrose/Sodium Chloride 1,000 ml @ 60 mls/hr [id number] IV 05/15/19 09:45 06/14/19 09:44 05/15/19 09:45 Donepezil HCl (Aricept) 5 mg QHS ORAL 05/15/19 21:00 06/14/19 20:59 05/15/19 22:18 Doxycycline Hyclate 100 mg/ Dextrose 110 ml @ 110 mls/hr Q12HR IV 05/15/19 21:00 05/22/19 20:59 05/15/19 21:08 Heparin Sodium (Porcine) (Heparin 5000 units/ml) 5,000 units EVERY 12 HOURS SUBQ 05/15/19 21:00 06/14/19 20:59 05/15/19 22:20 Iohexol (OMNIPAQUE-300 100ml) 100 ml NOW PRN INJ Radiology Procedure 05/15/19 12:45 05/17/19 12:36 Levetiracetam (Keppra) 1,500 mg Q12HR ORAL 05/15/19 21:00 06/14/19 20:59 05/15/19 22:20 Mirtazapine (Remeron) 7.5 mg BEDTIME ORAL 05/15/19 21:00 06/14/19 20:59 05/15/19 22:21 Ondansetron HCl (Zofran) 4 mg Q8H PRN IVP Nausea & Vomiting 05/15/19 09:45 06/14/19 09:44 Piperacillin Sod/ Tazobactam Sod 3.375 gm/Sodium Chloride 110 ml @ 27.5 mls/hr Q8HR IVPB 05/15/19 14:00 05/22/19 13:59 05/16/19 05:20 Quetiapine Fumarate (SEROqueL) 100 mg TWICE A DAY ORAL 05/15/19 18:00 06/14/19 17:59 Vancomycin HCl (Vanco rx to dose) 1 ea DAILY PRN MISC Per rx protocol 05/15/19 09:45 06/14/19 09:44 Vancomycin HCl 750 mg/Dextrose 275 ml @ 183.333 mls/hr Q12HR@0000,1200 IVPB 05/15/19 12:00 05/20/19 11:59 05/16/19 01:20 Last 24 Hour Vital Signs Date Time Temp Pulse Resp B/P (MAP) Pulse Ox O2 Delivery O2 Flow Rate FiO2 05/16/19 04:00 95 05/16/19 04:00 2.0 05/16/19 04:00 97.8 91 19 118/67 (84) 94 05/16/19 03:47 85 18 99 Nasal Cannula 2.0 28 94 18 96 05/16/19 00:00 95 05/16/19 00:00 98.5 96 20 118/62 (80) 96 05/16/19 00:00 2.0 05/15/19 23:09 85 18 99 Nasal Cannula 2.0 28 81 18 98 05/15/19 21:00 Nasal Cannula 2.0 05/15/19 20:06 73 16 98 Nasal Cannula 2.0 28 05/15/19 20:06 79 18 99 Nasal Cannula 2.0 28 75 18 98 05/15/19 20:06 98 Nasal Cannula 2.0 28 05/15/19 20:00 111 05/15/19 20:00 99.1 104 19 120/64 (82) 97 05/15/19 16:00 97.5 87 20 128/67 (87) 97 05/15/19 16:00 93 05/15/19 16:00 2.0 05/15/19 15:33 93 18 99 Nasal Cannula 2.0 28 91 18 97 05/15/19 12:00 95 05/15/19 12:00 95 16 99 Nasal Cannula 2.0 28 91 16 98 05/15/19 12:00 98 Nasal Cannula 2.0 28 05/15/19 12:00 91 16 98 Nasal Cannula 2.0 28 05/15/19 12:00 97.9 89 20 133/78 (96) 100 05/15/19 12:00 2.0 05/15/19 11:10 Nasal Cannula 2.0 05/15/19 08:38 104 05/15/19 08:30 98.1 108 20 114/94 (101) 95 05/15/19 08:00 97.8 113 30 117/68 93 Nasal Cannula 2.0 05/15/19 06:31 97.7 105 24 152/95 94 Nasal Cannula 2.0 05/15/19 04:04 83 19 Nasal Cannula 3.0 05/15/19 04:04 97.7 80 19 125/80 94 Room Air 05/15/19 03:54 97.7 83 19 125/80 (95) 94 Room Air Intake and Output 05/15/19 05/16/19 19:00 07:00 Intake Total 150 ml Balance 150 ml Intake Oral 150 ml # Voids 1 # Bowel Movements 1 Labs Test 05/15/19 04:20 05/15/19 05:00 05/15/19 17:40 White Blood Count 12.0 K/UL (4.8-10.8) Red Blood Count 4.92 M/UL (4.70-6.10) Hemoglobin 15.2 G/DL (14.2-18.0) Hematocrit 46.9 % (42.0-52.0) Mean Corpuscular Volume 95 FL (80-99) Mean Corpuscular Hemoglobin 30.8 PG (27.0-31.0) Mean Corpuscular Hemoglobin Concent 32.4 G/DL (32.0-36.0) Red Cell Distribution Width 13.7 % (11.6-14.8) Platelet Count 334 K/UL (150-450) Mean Platelet Volume 5.6 FL (6.5-10.1) Neutrophils (%) (Auto) 69.2 % (45.0-75.0) Lymphocytes (%) (Auto) 21.3 % (20.0-45.0) Monocytes (%) (Auto) 7.3 % (1.0-10.0) Eosinophils (%) (Auto) 1.1 % (0.0-3.0) Basophils (%) (Auto) 1.1 % (0.0-2.0) Sodium Level 142 MMOL/L (136-145) Potassium Level 4.4 MMOL/L (3.5-5.1) Chloride Level 105 MMOL/L (98-107) Carbon Dioxide Level 30 MMOL/L (21-32) Anion Gap 7 mmol/L (5-15) Blood Urea Nitrogen 9 mg/dL (7-18) Creatinine 1.0 MG/DL (0.55-1.30) Estimat Glomerular Filtration Rate mL/min (>60) Glucose Level 94 MG/DL (74-106) Lactic Acid Level 0.80 mmol/L (0.4-2.0) Calcium Level 10.2 MG/DL (8.5-10.1) Total Bilirubin 0.6 MG/DL (0.2-1.0) Aspartate Amino Transf (AST/SGOT) 71 U/L (15-37) Alanine Aminotransferase (ALT/SGPT) 59 U/L (12-78) Alkaline Phosphatase 170 U/L (46-116) Troponin I 0.015 ng/mL (0.000-0.056) Pro-B-Type Natriuretic Peptide 38 pg/mL (0-125) Total Protein 8.7 G/DL (6.4-8.2) Albumin 3.3 G/DL (3.4-5.0) Globulin 5.4 g/dL Albumin/Globulin Ratio 0.6 (1.0-2.7) Urine Color Yellow Yellow Urine Appearance Clear Clear Urine pH 5 (4.5-8.0) 5 (4.5-8.0) Urine Specific [place] 1.020 (1.005-1.035) 1.020 (1.005-1.035) Urine Protein 1+ (NEGATIVE) 2+ (NEGATIVE) Urine Glucose (UA) Negative (NEGATIVE) Negative (NEGATIVE) Urine Ketones 3+ (NEGATIVE) 3+ (NEGATIVE) Urine Blood 3+ (NEGATIVE) 1+ (NEGATIVE) Urine Nitrite Negative (NEGATIVE) Negative (NEGATIVE) Urine Bilirubin Negative (NEGATIVE) Negative (NEGATIVE) Urine Urobilinogen 1 MG/DL (0.0-1.0) 1 MG/DL (0.0-1.0) Urine Leukocyte Esterase Negative (NEGATIVE) 1+ (NEGATIVE) Urine RBC 15-20 /HPF (0 - 0) 2-4 /HPF (0 - 0) Urine WBC 2-4 /HPF (0 - 0) 2-4 /HPF (0 - 0) Urine Squamous Epithelial Cells Few /LPF (NONE/OCC) None /LPF (NONE/OCC) Urine Bacteria Few /HPF (NONE) Few /HPF (NONE) Height (Feet): 6 Height (Inches): 0.00 Weight (Pounds): 180 Objective Gen: ill appearing, chronically Pulm: wheezing mild noted b/l CV: rrr, no mgr Abd: soft, nt, nd Ext: no cce Ignacio Ponce MD May 16, 2019 06:14
[2019-05-16 07:48] LABS: BASOPHILS % (AUTO) 1.1 % (0.0-2.0); LYMPHOCYTES % (AUTO) 21.5 % (20.0-45.0); MEAN CORPUSCULAR VOLUME 96 FL (80-99); MONOCYTES % (AUTO) 6.9 % (1.0-10.0); NEUTROPHILS % (AUTO) 69.5 % (45.0-75.0); PLATELET COUNT 304 K/UL (150-450); RED BLOOD COUNT 4.49 M/UL (4.70-6.10); RED CELL DISTRIBUTION WIDTH 13.4 % (11.6-14.8); WHITE BLOOD COUNT 13.4 K/UL (4.8-10.8)
--- NOTE | 2019-05-16 08:16 | General Progress Note ---
Assessment/Plan Status: progressing Assessment/Plan: GI: Plan Problems: (1) Dysphagia (2) PEG (percutaneous endoscopic gastrostomy) adjustment/replacement/removal (3) PNA (pneumonia) (4) Protein-calorie malnutrition, severe (5) Dehydration Plan maintain patient NPO given the possibility of possible silent aspiration the patient needs a video swallow study, but given his dementia and non- compliant behaviors I doubt this will happen POLST reviewed noted only for trial artificial feeding, NO extermination inspector artificial feeding. will contact family for decision will follow with additional recommendations start NGTF for now Subjective ROS Limited/Unobtainable: No Allergies: Coded Allergies: PNEUMOCOCCAL VACCINE (Unverified Allergy, Unknown, 10/07/18) Objective Last 24 Hour Vital Signs Date Time Temp Pulse Resp B/P (MAP) Pulse Ox O2 Delivery O2 Flow Rate FiO2 05/16/19 08:08 86 13 99 Nasal Cannula 2.0 28 88 12 98 05/16/19 08:07 98 Nasal Cannula 2.0 28 05/16/19 08:05 88 21 98 Nasal Cannula 2.0 28 05/16/19 04:00 95 05/16/19 04:00 2.0 05/16/19 04:00 97.8 91 19 118/67 (84) 94 05/16/19 03:47 85 18 99 Nasal Cannula 2.0 28 94 18 96 05/16/19 00:00 95 05/16/19 00:00 98.5 96 20 118/62 (80) 96 05/16/19 00:00 2.0 05/15/19 23:09 85 18 99 Nasal Cannula 2.0 28 81 18 98 05/15/19 21:00 Nasal Cannula 2.0 05/15/19 20:06 73 16 98 Nasal Cannula 2.0 28 05/15/19 20:06 79 18 99 Nasal Cannula 2.0 28 75 18 98 05/15/19 20:06 98 Nasal Cannula 2.0 28 05/15/19 20:00 111 05/15/19 20:00 99.1 104 19 120/64 (82) 97 05/15/19 16:00 97.5 87 20 128/67 (87) 97 05/15/19 16:00 93 05/15/19 16:00 2.0 05/15/19 15:33 93 18 99 Nasal Cannula 2.0 28 91 18 97 05/15/19 12:00 95 05/15/19 12:00 95 16 99 Nasal Cannula 2.0 28 91 16 98 05/15/19 12:00 98 Nasal Cannula 2.0 28 05/15/19 12:00 91 16 98 Nasal Cannula 2.0 28 05/15/19 12:00 97.9 89 20 133/78 (96) 100 05/15/19 12:00 2.0 05/15/19 11:10 Nasal Cannula 2.0 05/15/19 08:38 104 05/15/19 08:30 98.1 108 20 114/94 (101) 95 Intake and Output 05/15/19 05/16/19 19:00 07:00 Intake Total 150 ml Balance 150 ml Intake Oral 150 ml # Voids 1 2 # Bowel Movements 1 1 Laboratory Tests 05/15/19 17:40: Urine Color Yellow, Urine Appearance Clear, Urine pH 5, Urine Specific [place] 1.020, Urine Protein 2+H, Urine Glucose (UA) Negative, Urine Ketones 3+H, Urine Blood 1+H, Urine Nitrite Negative, Urine Bilirubin Negative, Urine Urobilinogen 1H, Urine Leukocyte Esterase 1+H, Urine RBC 2-4H, Urine WBC 2-4, Urine Squamous Epithelial Cells None, Urine Bacteria Few 05/16/19 06:49: White Blood Count 13.4H, Red Blood Count 4.49L, Hemoglobin 14.0L, Hematocrit 43.0, Mean Corpuscular Volume 96, Mean Corpuscular Hemoglobin 31.1H, Mean Corpuscular Hemoglobin Concent 32.5, Red Cell Distribution Width 13.4, Platelet Count 304, Mean Platelet Volume 5.7L, Neutrophils (%) (Auto) 69.5, Lymphocytes ( %) (Auto) 21.5, Monocytes (%) (Auto) 6.9, Eosinophils (%) (Auto) 1.0, Basophils (%) (Auto) 1.1, Erythrocyte Sedimentation Rate [Pending], Prothrombin Time 10.7 , Prothromb Time International Ratio 1.0, Activated Partial Thromboplast Time 36H, Sodium Level [Pending], Potassium Level [Pending], Chloride Level [Pending] , Carbon Dioxide Level [Pending], Blood Urea Nitrogen [Pending], Creatinine [ Pending], Estimat Glomerular Filtration Rate [Pending], Glucose Level [Pending] , Calcium Level [Pending], Total Bilirubin [Pending], Aspartate Amino Transf ( AST/SGOT) [Pending], Alanine Aminotransferase (ALT/SGPT) [Pending], Alkaline Phosphatase [Pending], C-Reactive Protein, Quantitative [Pending], Total Protein [Pending], Albumin [Pending], Globulin [Pending] Height (Feet): 6 Height (Inches): 0.00 Weight (Pounds): 180 General Appearance: alert EENT: normal ENT inspection Neck: supple Cardiovascular: normal rate Respiratory/Chest: decreased breath sounds Abdomen: normal bowel sounds, non tender, soft Extremities: non-tender Terence Anton MD May 16, 2019 08:16
[2019-05-16] MEDS: Doxycycline Hyclate 100 MG in D5W 110 ML IV SCH (08:35)
[2019-05-16] MEDS: Benztropine 1mg tab ORAL SCH ×2 (08:35→17:10)
[2019-05-16] MEDS: Heparin 5000 units/ml inj SUBQ SCH ×2 (08:36→21:48)
[2019-05-16 09:17] LABS: ALANINE AMINOTRANSFERASE 55 U/L (12-78); ALBUMIN 2.9 G/DL (3.4-5.0); ALBUMIN/GLOBULIN RATIO 0.6 (1.0-2.7); ALKALINE PHOSPHATASE 146 U/L (46-116); ANION GAP 12 mmol/L (5-15); ASPARTATE AMINO TRANSFERASE 59 U/L (15-37); BILIRUBIN,TOTAL 0.5 MG/DL (0.2-1.0); BLOOD UREA NITROGEN 8 mg/dL (7-18); CALCIUM 9.6 MG/DL (8.5-10.1); CARBON DIOXIDE 25 MMOL/L (21-32); CHLORIDE 105 MMOL/L (98-107); CREATININE 1.1 MG/DL (0.55-1.30); POTASSIUM 3.5 MMOL/L (3.5-5.1); SODIUM 142 MMOL/L (136-145)
--- NOTE | 2019-05-16 10:58 | Diagnostic Imaging Report ---
Indication: Status post nasogastric tube placement Technique: Supine view of the upper abdomen Comparison: none Findings: There is a nasogastric tube in place, tip projected in the gastric fundus, proximal port well beyond the gastroesophageal junction. The bowel gas pattern is unremarkable. There are degenerative changes of the lumbar spine. There may be parenchymal disease at the right lung base Impression: Satisfactory nasogastric intubation Other findings as noted This agrees with the preliminary interpretation provided overnight by [facility]eradiology service.
--- NOTE | 2019-05-16 11:37 | Diagnostic Imaging Report ---
Indication: Shortness of breath Technique: One view of the chest Comparison: 05/15/2019 Findings: There is increased right basilar and left perihilar atelectasis and consolidation. Interim placement of a nasogastric tube, tip of which projects at the level gastric fundus in good position. The pleural spaces are clear. The heart size is normal. Impression: Over one day, increasing right basilar and left perihilar atelectasis and consolidation.
--- NOTE | 2019-05-16 13:40 | Diagnostic Imaging Report ---
Clinical Indication: Abdominal pain, dysphagia Technique: Patient given enteric contrast. IV administration nonionic contrast. Venous phase spiral acquisition obtained through the abdomen and pelvis. Multiplanar reconstructions were generated. Total dose length product 1263 mGycm. CTDIvol(s) 20 mGy. Dose reduction achieved using automated exposure control Comparison: none Findings: There is a nasogastric tube in place. This stomach, duodenum, distal esophagus are otherwise unremarkable. No small bowel distention or small bowel wall thickening. Ingested contrast is not quite reach the distal small bowel or colon. The appendix is slightly prominent in caliber proximally but otherwise unremarkable. No definite periappendiceal inflammation demonstrated. No free or loculated intraperitoneal gas or fluid is evident. The rectum is distended by feces, measures 6.8 cm in diameter. There is colonic diverticulosis. No evidence of diverticulitis. The liver, gallbladder are unremarkable. The common bile duct is ectatic, measuring up to 10 mm in diameter, but no downstream obstructive lesion is evident. The pancreas, spleen, adrenals, kidneys are unremarkable. No pelvic mass or adenopathy. There is a right hip hemiarthroplasty prosthesis. This throws off streak artifact which could obscure pathology in the pelvis. The included lung bases demonstrate posterior consolidation and atelectasis. The bones demonstrate degenerative spondylosis changes. Impression: Rectal distention by feces, could indicate rectal fecal impaction Colonic diverticulosis. No evidence of diverticulitis Ectatic common bile duct. Probably on the basis of senescent changes given active evidence of downstream obstructing lesion, but occult downstream obstructive process not completely excludable. Correlate with liver function tests Basilar pulmonary consolidation and atelectasis. Pneumonia possible. Correlate with clinical findings Satisfactory position of nasogastric tube Right hip prosthesis The CT scanner at [facility] is accredited by the [employer] and the scans are performed using protocols designed to limit radiation exposure to as low as reasonably achievable to attain images of sufficient resolution adequate for diagnostic evaluation.
--- NOTE | 2019-05-16 14:34 | Surgery Progress Note ---
Surgery Progress Note Subjective Additional Comments wbc CT noted exam unchanged Objective Last 24 Hour Vital Signs Date Time Temp Pulse Resp B/P (MAP) Pulse Ox O2 Delivery O2 Flow Rate FiO2 05/16/19 12:00 97.0 81 19 119/66 (83) 96 05/16/19 12:00 2.0 05/16/19 11:53 86 13 99 Nasal Cannula 2.0 28 89 12 98 05/16/19 09:00 Nasal Cannula 2.0 05/16/19 08:35 86 138/73 05/16/19 08:08 86 13 99 Nasal Cannula 2.0 28 88 12 98 05/16/19 08:07 98 Nasal Cannula 2.0 28 05/16/19 08:05 88 21 98 Nasal Cannula 2.0 28 05/16/19 08:00 97.9 91 19 138/73 (94) 100 05/16/19 08:00 2.0 05/16/19 08:00 88 05/16/19 04:00 95 05/16/19 04:00 2.0 05/16/19 04:00 97.8 91 19 118/67 (84) 94 05/16/19 03:47 85 18 99 Nasal Cannula 2.0 28 94 18 96 05/16/19 00:00 95 05/16/19 00:00 98.5 96 20 118/62 (80) 96 05/16/19 00:00 2.0 05/15/19 23:09 85 18 99 Nasal Cannula 2.0 28 81 18 98 05/15/19 21:00 Nasal Cannula 2.0 05/15/19 20:06 73 16 98 Nasal Cannula 2.0 28 05/15/19 20:06 79 18 99 Nasal Cannula 2.0 28 75 18 98 05/15/19 20:06 98 Nasal Cannula 2.0 28 05/15/19 20:00 111 05/15/19 20:00 99.1 104 19 120/64 (82) 97 05/15/19 16:00 97.5 87 20 128/67 (87) 97 05/15/19 16:00 93 05/15/19 16:00 2.0 05/15/19 15:33 93 18 99 Nasal Cannula 2.0 28 91 18 97 I&O Intake and Output 05/15/19 05/16/19 18:59 06:59 Intake Total 150 ml Balance 150 ml Intake Oral 150 ml # Voids 1 2 # Bowel Movements 1 1 Dressing: other Wound: other Drains: other Cardiovascular: RSR Respiratory: decreased breath sounds Abdomen: soft, non-distended Extremities: no cyanosis, other Laboratory Tests Test 05/15/19 17:40 05/16/19 06:49 Urine Color Yellow Urine Appearance Clear Urine pH 5 (4.5-8.0) Urine Specific [place] 1.020 (1.005-1.035) Urine Protein 2+ (NEGATIVE) H Urine Glucose (UA) Negative (NEGATIVE) Urine Ketones 3+ (NEGATIVE) H Urine Blood 1+ (NEGATIVE) H Urine Nitrite Negative (NEGATIVE) Urine Bilirubin Negative (NEGATIVE) Urine Urobilinogen 1 MG/DL (0.0-1.0) H Urine Leukocyte Esterase 1+ (NEGATIVE) H Urine RBC 2-4 /HPF (0 - 0) H Urine WBC 2-4 /HPF (0 - 0) Urine Squamous Epithelial Cells None /LPF (NONE/OCC) Urine Bacteria Few /HPF (NONE) White Blood Count 13.4 K/UL (4.8-10.8) H Red Blood Count 4.49 M/UL (4.70-6.10) L Hemoglobin 14.0 G/DL (14.2-18.0) L Hematocrit 43.0 % (42.0-52.0) Mean Corpuscular Volume 96 FL (80-99) Mean Corpuscular Hemoglobin 31.1 PG (27.0-31.0) H Mean Corpuscular Hemoglobin Concent 32.5 G/DL (32.0-36.0) Red Cell Distribution Width 13.4 % (11.6-14.8) Platelet Count 304 K/UL (150-450) Mean Platelet Volume 5.7 FL (6.5-10.1) L Neutrophils (%) (Auto) 69.5 % (45.0-75.0) Lymphocytes (%) (Auto) 21.5 % (20.0-45.0) Monocytes (%) (Auto) 6.9 % (1.0-10.0) Eosinophils (%) (Auto) 1.0 % (0.0-3.0) Basophils (%) (Auto) 1.1 % (0.0-2.0) Erythrocyte Sedimentation Rate 32 MM/HR (0-20) H Prothrombin Time 10.7 SEC (9.30-11.50) Prothromb Time International Ratio 1.0 (0.9-1.1) Activated Partial Thromboplast Time 36 SEC (23-33) H Sodium Level 142 MMOL/L (136-145) Potassium Level 3.5 MMOL/L (3.5-5.1) Chloride Level 105 MMOL/L (98-107) Carbon Dioxide Level 25 MMOL/L (21-32) Anion Gap 12 mmol/L (5-15) Blood Urea Nitrogen 8 mg/dL (7-18) Creatinine 1.1 MG/DL (0.55-1.30) Estimat Glomerular Filtration Rate mL/min (>60) Glucose Level 87 MG/DL (74-106) Calcium Level 9.6 MG/DL (8.5-10.1) Total Bilirubin 0.5 MG/DL (0.2-1.0) Aspartate Amino Transf (AST/SGOT) 59 U/L (15-37) H Alanine Aminotransferase (ALT/SGPT) 55 U/L (12-78) Alkaline Phosphatase 146 U/L (46-116) H C-Reactive Protein, Quantitative 6.0 mg/dL (0.00-0.90) H Total Protein 7.8 G/DL (6.4-8.2) Albumin 2.9 G/DL (3.4-5.0) L Globulin 4.9 g/dL Albumin/Globulin Ratio 0.6 (1.0-2.7) L Plan Problems: (1) Protein-calorie malnutrition, severe Assessment & Plan: (1) Decubitus skin ulcer Assessment & Plan: Pt presented on admission with DTPI sacrum with surrounding non-blanching erythema over historical scar from previous wound. An area of induration noted to sacrococcygeal area measuring (L)2.5cm x (W)2cm. Non-blanching erythema R heel with an area of fluctuance and maroon at lateral aspect of heel(L)3cm x (W)2.5cm . Pt exhibited agitation when affected area minimally palpated. L heel is boggy with non-blanching erythema. Shaft and penile head including scrotum are erythematous. Tx.Plan: Apply Moisture Barrier Paste to sacrum. Cover with Optifoam drsg. Change every 3 days and prn. Apply Triad Paste to penis scrotum and groin areas with each incontinence care. Apply [place] Skin Barrier to both heel. Cover each heel with Optifoam drsg. Change every 7 days and prn. Reposition at least every 2hours or as tolerated. Off-load heels with pillow. APM/CHRISTOPHER Mattress overlay. (2) Leukocytosis likely related to pulm infiltrate wounds do not clinically look infected abx for pna pulm input abx as per ID (3) xxx (4) Protein-calorie malnutrition, severe Assessment & Plan: PEG? polst reviewed. (5) Lung mass Assessment & Plan: 2 cm pleural-based masslike opacity containing multiple nodular calcifications andadjacent parenchymal linear density persists in the anterolateral periphery of thelateral segment right middle lobe, unchanged. Adjacent small nodular parenchymaldensities persist, unchanged. Small irregular pleural-based linear densities persist in the dependent portions of both lung bases, unchanged. No new pulmonary parenchymal abnormality demonstrated. No pleural disease is evident. Nodularcalcification in right hilum unchanged. Clustered calcified nodules in the subcarinal region of mediastinum unchanged. No new mediastinal or hilar enlarged lymph nodes. Heart remains normal in size. No pericardial abnormality. Centralmediastinal vasculature remains unremarkable in appearance. noted prior in 2017. no path available cxr noted Rectal distention by feces, could indicate rectal fecal impaction Colonic diverticulosis. No evidence of diverticulitis Ectatic common bile duct. Probably on the basis of senescent changes given active evidence of downstream obstructing lesion, but occult downstream obstructive process not completely excludable. Correlate with liver function tests Basilar pulmonary consolidation and atelectasis. Pneumonia possible. Correlate with clinical findings Satisfactory position of nasogastric tube Right hip prosthesis bowel care enema Gabino Little May 16, 2019 14:34
--- NOTE | 2019-05-16 14:36 | Cardiology Report ---
APPROVED REPORT EXAM: Two-dimensional and M-mode echocardiogram with Doppler and color Doppler. INDICATION SOB M-Mode DIMENSIONS IVSd1.1 (0.7-1.1cm)Left Atrium (MM)3.3 (1.6-4.0cm) LVDd3.9 (3.5-5.6cm)Aortic Root2.7 (2.0-3.7cm) PWd1.2 (0.7-1.1cm)Aortic Cusp Exc.1.6 (1.5-2.0cm) LVDs2.2 (2.5-4.0cm) PWs2.0 cm Normal left ventricular chamber size, systolic function and wall motion. Left ventricular ejection fraction estimated to be 65-70 %. Mild left ventricular hypertrophy. No evidence of pericardial effusion. All other cardiac chamber sizes are within normal limits. Focal aortic valve sclerosis with adequate cusp excursion. Thickened mitral valve leaflets with normal excursion. Mitral annulus and aortic root calcification. Pulmonic valve not well visualized. Normal tricuspid valve structure. IVC at normal size with physiologic collapse. A color flow and spectral Doppler study was performed and revealed: Trace mitral regurgitation. Mitral diastolic velocities suggest reduced left ventricular relaxation c/w mild LV diastolic dysfunction (Grade I) Trace tricuspid regurgitation. Tricuspid systolic velocities suggests peak right ventricular systolic pressure of 16 mmHg.
--- NOTE | 2019-05-16 14:47 | Infectious Diseases Prog Note ---
Assessment/Plan Assessment/Plan A: Pneumonia secodary to aspiration Atelectasis hypoxemia, hypertension, dementia. Hypercalcemia Fecal impaction P; Continue Zosyn Discontinue Doxycycline Agree with PEG placement Subjective ROS Limited/Unobtainable: Yes Constitutional: Denies: fever Allergies: Coded Allergies: PNEUMOCOCCAL VACCINE (Unverified Allergy, Unknown, 10/07/18) Objective Vital Signs Last 24 Hour Vital Signs Date Time Temp Pulse Resp B/P (MAP) Pulse Ox O2 Delivery O2 Flow Rate FiO2 05/16/19 12:00 97.0 81 19 119/66 (83) 96 05/16/19 12:00 2.0 05/16/19 11:53 86 13 99 Nasal Cannula 2.0 28 89 12 98 05/16/19 09:00 Nasal Cannula 2.0 05/16/19 08:35 86 138/73 05/16/19 08:08 86 13 99 Nasal Cannula 2.0 28 88 12 98 05/16/19 08:07 98 Nasal Cannula 2.0 28 05/16/19 08:05 88 21 98 Nasal Cannula 2.0 28 05/16/19 08:00 97.9 91 19 138/73 (94) 100 05/16/19 08:00 2.0 05/16/19 08:00 88 05/16/19 04:00 95 05/16/19 04:00 2.0 05/16/19 04:00 97.8 91 19 118/67 (84) 94 05/16/19 03:47 85 18 99 Nasal Cannula 2.0 28 94 18 96 05/16/19 00:00 95 05/16/19 00:00 98.5 96 20 118/62 (80) 96 05/16/19 00:00 2.0 05/15/19 23:09 85 18 99 Nasal Cannula 2.0 28 81 18 98 05/15/19 21:00 Nasal Cannula 2.0 05/15/19 20:06 73 16 98 Nasal Cannula 2.0 28 05/15/19 20:06 79 18 99 Nasal Cannula 2.0 28 75 18 98 05/15/19 20:06 98 Nasal Cannula 2.0 28 05/15/19 20:00 111 05/15/19 20:00 99.1 104 19 120/64 (82) 97 05/15/19 16:00 97.5 87 20 128/67 (87) 97 05/15/19 16:00 93 05/15/19 16:00 2.0 05/15/19 15:33 93 18 99 Nasal Cannula 2.0 28 91 18 97 Height (Feet): 6 Height (Inches): 0.00 Weight (Pounds): 180 General Appearance: no acute distress HEENT: mucous membranes moist Respiratory/Chest: lungs clear Cardiovascular: normal rate Abdomen: soft, non tender, other - NG tube feeding Extremities: no edema Neurologic/Psychiatric: unresponsiveness, aphasia Microbiology Date/Time Source Procedure Growth Status 05/15/19 04:25 Blood Blood Culture - Preliminary NO GROWTH AFTER 24 HOURS Resulted 05/15/19 04:20 Blood Blood Culture - Preliminary NO GROWTH AFTER 24 HOURS Resulted 05/15/19 04:20 Nasal Nares - Final Complete 05/15/19 04:20 Nasal Nares - Final Complete 05/15/19 17:40 Urine,Clean Catch Urine Culture - Preliminary Resulted Laboratory Tests Test 05/15/19 17:40 05/16/19 06:49 Urine Color Yellow Urine Appearance Clear Urine pH 5 (4.5-8.0) Urine Specific [place] 1.020 (1.005-1.035) Urine Protein 2+ (NEGATIVE) H Urine Glucose (UA) Negative (NEGATIVE) Urine Ketones 3+ (NEGATIVE) H Urine Blood 1+ (NEGATIVE) H Urine Nitrite Negative (NEGATIVE) Urine Bilirubin Negative (NEGATIVE) Urine Urobilinogen 1 MG/DL (0.0-1.0) H Urine Leukocyte Esterase 1+ (NEGATIVE) H Urine RBC 2-4 /HPF (0 - 0) H Urine WBC 2-4 /HPF (0 - 0) Urine Squamous Epithelial Cells None /LPF (NONE/OCC) Urine Bacteria Few /HPF (NONE) White Blood Count 13.4 K/UL (4.8-10.8) H Red Blood Count 4.49 M/UL (4.70-6.10) L Hemoglobin 14.0 G/DL (14.2-18.0) L Hematocrit 43.0 % (42.0-52.0) Mean Corpuscular Volume 96 FL (80-99) Mean Corpuscular Hemoglobin 31.1 PG (27.0-31.0) H Mean Corpuscular Hemoglobin Concent 32.5 G/DL (32.0-36.0) Red Cell Distribution Width 13.4 % (11.6-14.8) Platelet Count 304 K/UL (150-450) Mean Platelet Volume 5.7 FL (6.5-10.1) L Neutrophils (%) (Auto) 69.5 % (45.0-75.0) Lymphocytes (%) (Auto) 21.5 % (20.0-45.0) Monocytes (%) (Auto) 6.9 % (1.0-10.0) Eosinophils (%) (Auto) 1.0 % (0.0-3.0) Basophils (%) (Auto) 1.1 % (0.0-2.0) Erythrocyte Sedimentation Rate 32 MM/HR (0-20) H Prothrombin Time 10.7 SEC (9.30-11.50) Prothromb Time International Ratio 1.0 (0.9-1.1) Activated Partial Thromboplast Time 36 SEC (23-33) H Sodium Level 142 MMOL/L (136-145) Potassium Level 3.5 MMOL/L (3.5-5.1) Chloride Level 105 MMOL/L (98-107) Carbon Dioxide Level 25 MMOL/L (21-32) Anion Gap 12 mmol/L (5-15) Blood Urea Nitrogen 8 mg/dL (7-18) Creatinine 1.1 MG/DL (0.55-1.30) Estimat Glomerular Filtration Rate mL/min (>60) Glucose Level 87 MG/DL (74-106) Calcium Level 9.6 MG/DL (8.5-10.1) Total Bilirubin 0.5 MG/DL (0.2-1.0) Aspartate Amino Transf (AST/SGOT) 59 U/L (15-37) H Alanine Aminotransferase (ALT/SGPT) 55 U/L (12-78) Alkaline Phosphatase 146 U/L (46-116) H C-Reactive Protein, Quantitative 6.0 mg/dL (0.00-0.90) H Total Protein 7.8 G/DL (6.4-8.2) Albumin 2.9 G/DL (3.4-5.0) L Globulin 4.9 g/dL Albumin/Globulin Ratio 0.6 (1.0-2.7) L Current Medications Medications (Trade) Dose Ordered Sig/Nidhi Route PRN Reason Start Time Stop Time Status Last Admin Dose Admin Acetaminophen (Tylenol) 650 mg Q6H PRN ORAL Mild Pain/Temp > 100.5 05/15/19 09:45 06/14/19 09:44 Acetylcysteine (Mucomyst) 200 mg Q4HRT [facility] 05/15/19 11:00 06/14/19 10:59 05/16/19 11:49 Albuterol/ Ipratropium (Albuterol/ Ipratropium) 3 ml Q4HRT [facility] 05/15/19 11:00 05/20/19 10:59 05/16/19 11:49 Amlodipine Besylate (Norvasc) 10 mg DAILY ORAL 05/16/19 09:00 06/15/19 08:59 05/16/19 08:35 Barium Sulfate (Readi-Cat 2) 450 ml NOW PRN ORAL Radiology Procedure 05/15/19 12:45 05/17/19 12:36 Benztropine Mesylate (Cogentin) 0.5 mg TWICE A DAY ORAL 05/15/19 18:00 06/14/19 17:59 05/16/19 08:35 Dextrose/Sodium Chloride 1,000 ml @ 60 mls/hr [id number] IV 05/15/19 09:45 06/14/19 09:44 05/15/19 09:45 Donepezil HCl (Aricept) 5 mg QHS ORAL 05/15/19 21:00 06/14/19 20:59 05/15/19 22:18 Doxycycline Hyclate 100 mg/ Dextrose 110 ml @ 110 mls/hr Q12HR IV 05/15/19 21:00 05/22/19 20:59 05/16/19 08:35 Heparin Sodium (Porcine) (Heparin 5000 units/ml) 5,000 units EVERY 12 HOURS SUBQ 05/15/19 21:00 06/14/19 20:59 05/16/19 08:36 Iohexol (OMNIPAQUE-300 100ml) 100 ml NOW PRN INJ Radiology Procedure 05/15/19 12:45 05/17/19 12:36 Levetiracetam (Keppra) 1,500 mg Q12HR ORAL 05/15/19 21:00 06/14/19 20:59 05/16/19 08:35 Mirtazapine (Remeron) 7.5 mg BEDTIME ORAL 05/15/19 21:00 06/14/19 20:59 05/15/19 22:21 Ondansetron HCl (Zofran) 4 mg Q8H PRN IVP Nausea & Vomiting 05/15/19 09:45 06/14/19 09:44 Piperacillin Sod/ Tazobactam Sod 3.375 gm/Sodium Chloride 110 ml @ 27.5 mls/hr Q8HR IVPB 05/15/19 14:00 05/22/19 13:59 05/16/19 14:23 Quetiapine Fumarate (SEROqueL) 100 mg TWICE A DAY ORAL 05/15/19 18:00 06/14/19 17:59 05/16/19 08:35 Sodium Phosphate (Fleet's Sodium Phosl Enema) 133 ml ONCE RECTAL 05/16/19 16:00 05/16/19 17:00 Vancomycin HCl (Vanco rx to dose) 1 ea DAILY PRN MISC Per rx protocol 05/15/19 09:45 06/14/19 09:44 Vancomycin HCl 750 mg/Dextrose 275 ml @ 183.333 mls/hr Q12HR@0000,1200 IVPB 05/15/19 12:00 05/20/19 11:59 05/16/19 12:42 Curtis Farah MD May 16, 2019 14:47
[2019-05-16] MEDS ORDERED: Fleet's Enema 133ml RECTAL SCH (16:00)
--- NOTE | 2019-05-16 17:17 | Pulmonology Progress Note ---
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 No other history available. Recently discharged, had been treated for Pneumonia, Heel wound, noted to have high fever at [facility]. Also noted to have cough and increased congestion.Patient had prior history of dementia. History is markedly limited by patient's mental status. Allergies: PNEUMOCOCCAL VACCINE Past Medical History: Chronic Obstructive Pulmonary Disease, Chronic Granulomatous Disease, Hypertension, Diverticulosis, Renal Myolipoma, history of Seizures, history of Dementia, encephalopathy All Other Systems: limited - Not communicative Physical Exam Vital Signs Noted General Appearance: Wasted, Chronically Ill appearing Head: normocephalic, atraumatic Eyes: bilateral eye PERRL, bilateral eye EOMI ENT: uvula midline, dry mucus membranes Neck: supple, thyroid normal, supple/symm/no masses Respiratory: Bilateral rhonchi Cardiovascular: normal peripheral pulses, HS1, HS2, RRR, no edema, no gallop, no murmur, tachycardia Gastrointestinal: non tender, soft, no guarding, no rebound Musculoskeletal: normal inspection Neurologic: awake, chronically altered Skin: no rash, warm/dry Impression: Chronic obstructive pulmonary disease Healthcare-associated pneumonia Heel wounds Dyspnea, Hypoxia Dehydration Chronic Granulomatous Disease with two pleural based partially calcified areas Hypertension Diverticulosis Renal Myolipoma History of Seizures History of Dementia Chronic Encephalopathy Increased Calcium Plan - IV Antibiotics - HHN - O2 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 Infectious infiltrates not excluded. Clinical correlation/follow-up recommended. CT Abdomen: Lung bases: patchy infiltrates CT Chest: 2 cm pleural-based masslike opacity containing multiple nodular calcifications andadjacent parenchymal linear density persists in the anterolateral periphery of thelateral segment right middle lobe, unchanged. Adjacent small nodular parenchymaldensities persist, unchanged. Small irregular pleural-based linear densities persist in the dependent portions of both lung bases, unchanged. No new pulmonary parenchymal abnormality demonstrated. No pleural disease is evident. Nodularcalcification in right hilum unchanged. Clustered calcified nodules in the subcarinal region of mediastinum unchanged. No new mediastinal or hilar enlarged lymph nodes. Heart remains normal in size. No pericardial abnormality. Centralmediastinal vasculature remains unremarkable in appearance. Subjective ROS Limited/Unobtainable: No Allergies: Coded Allergies: PNEUMOCOCCAL VACCINE (Unverified Allergy, Unknown, 10/07/18) Objective Last 24 Hour Vital Signs Date Time Temp Pulse Resp B/P (MAP) Pulse Ox O2 Delivery O2 Flow Rate FiO2 05/16/19 15:10 77 18 99 Nasal Cannula 2.0 28 76 18 99 05/16/19 12:00 92 05/16/19 12:00 97.0 81 19 119/66 (83) 96 05/16/19 12:00 2.0 05/16/19 11:53 86 13 99 Nasal Cannula 2.0 28 89 12 98 05/16/19 09:00 Nasal Cannula 2.0 05/16/19 08:35 86 138/73 05/16/19 08:08 86 13 99 Nasal Cannula 2.0 28 88 12 98 05/16/19 08:07 98 Nasal Cannula 2.0 28 05/16/19 08:05 88 21 98 Nasal Cannula 2.0 28 05/16/19 08:00 97.9 91 19 138/73 (94) 100 05/16/19 08:00 2.0 05/16/19 08:00 88 05/16/19 04:00 95 05/16/19 04:00 2.0 05/16/19 04:00 97.8 91 19 118/67 (84) 94 05/16/19 03:47 85 18 99 Nasal Cannula 2.0 28 94 18 96 05/16/19 00:00 95 05/16/19 00:00 98.5 96 20 118/62 (80) 96 05/16/19 00:00 2.0 05/15/19 23:09 85 18 99 Nasal Cannula 2.0 28 81 18 98 05/15/19 21:00 Nasal Cannula 2.0 05/15/19 20:06 73 16 98 Nasal Cannula 2.0 28 05/15/19 20:06 79 18 99 Nasal Cannula 2.0 28 75 18 98 05/15/19 20:06 98 Nasal Cannula 2.0 28 05/15/19 20:00 111 05/15/19 20:00 99.1 104 19 120/64 (82) 97 Intake and Output 05/15/19 05/16/19 18:59 06:59 Intake Total 150 ml Balance 150 ml Intake Oral 150 ml # Voids 1 2 # Bowel Movements 1 1 Microbiology Date/Time Source Procedure Growth Status 05/15/19 04:25 Blood Blood Culture - Preliminary NO GROWTH AFTER 24 HOURS Resulted 05/15/19 04:20 Blood Blood Culture - Preliminary NO GROWTH AFTER 24 HOURS Resulted 05/15/19 04:20 Nasal Nares - Final Complete 05/15/19 04:20 Nasal Nares - Final Complete 05/15/19 17:40 Urine,Clean Catch Urine Culture - Preliminary Resulted Laboratory Tests 05/15/19 17:40: Urine Color Yellow, Urine Appearance Clear, Urine pH 5, Urine Specific [place] 1.020, Urine Protein 2+H, Urine Glucose (UA) Negative, Urine Ketones 3+H, Urine Blood 1+H, Urine Nitrite Negative, Urine Bilirubin Negative, Urine Urobilinogen 1H, Urine Leukocyte Esterase 1+H, Urine RBC 2-4H, Urine WBC 2-4, Urine Squamous Epithelial Cells None, Urine Bacteria Few 05/16/19 06:49: White Blood Count 13.4H, Red Blood Count 4.49L, Hemoglobin 14.0L, Hematocrit 43.0, Mean Corpuscular Volume 96, Mean Corpuscular Hemoglobin 31.1H, Mean Corpuscular Hemoglobin Concent 32.5, Red Cell Distribution Width 13.4, Platelet Count 304, Mean Platelet Volume 5.7L, Neutrophils (%) (Auto) 69.5, Lymphocytes ( %) (Auto) 21.5, Monocytes (%) (Auto) 6.9, Eosinophils (%) (Auto) 1.0, Basophils (%) (Auto) 1.1, Erythrocyte Sedimentation Rate 32H, Prothrombin Time 10.7, Prothromb Time International Ratio 1.0, Activated Partial Thromboplast Time 36H , Sodium Level 142, Potassium Level 3.5, Chloride Level 105, Carbon Dioxide Level 25, Anion Gap 12, Blood Urea Nitrogen 8, Creatinine 1.1, Estimat Glomerular Filtration Rate , Glucose Level 87, Calcium Level 9.6, Total Bilirubin 0.5, Aspartate Amino Transf (AST/SGOT) 59H, Alanine Aminotransferase ( ALT/SGPT) 55, Alkaline Phosphatase 146H, C-Reactive Protein, Quantitative 6.0H, Total Protein 7.8, Albumin 2.9L, Globulin 4.9, Albumin/Globulin Ratio 0.6L Current Medications Medications (Trade) Dose Ordered Sig/Nidhi Route PRN Reason Start Time Stop Time Status Last Admin Dose Admin Acetaminophen (Tylenol) 650 mg Q6H PRN ORAL Mild Pain/Temp > 100.5 05/15/19 09:45 06/14/19 09:44 Acetylcysteine (Mucomyst) 200 mg Q4HRT N 05/15/19 11:00 06/14/19 10:59 05/16/19 15:05 Albuterol/ Ipratropium (Albuterol/ Ipratropium) 3 ml Q4HRT [facility] 05/15/19 11:00 05/20/19 10:59 05/16/19 15:03 Amlodipine Besylate (Norvasc) 10 mg DAILY ORAL 05/16/19 09:00 06/15/19 08:59 05/16/19 08:35 Barium Sulfate (Readi-Cat 2) 450 ml NOW PRN ORAL Radiology Procedure 05/15/19 12:45 05/17/19 12:36 Benztropine Mesylate (Cogentin) 0.5 mg TWICE A DAY ORAL 05/15/19 18:00 06/14/19 17:59 05/16/19 17:10 Dextrose/Sodium Chloride 1,000 ml @ 60 mls/hr [id number] IV 05/15/19 09:45 06/14/19 09:44 05/15/19 09:45 Donepezil HCl (Aricept) 5 mg QHS ORAL 05/15/19 21:00 06/14/19 20:59 05/15/19 22:18 Heparin Sodium (Porcine) (Heparin 5000 units/ml) 5,000 units EVERY 12 HOURS SUBQ 05/15/19 21:00 06/14/19 20:59 05/16/19 08:36 Iohexol (OMNIPAQUE-300 100ml) 100 ml NOW PRN INJ Radiology Procedure 05/15/19 12:45 05/17/19 12:36 Levetiracetam (Keppra) 1,500 mg Q12HR ORAL 05/15/19 21:00 06/14/19 20:59 05/16/19 08:35 Mirtazapine (Remeron) 7.5 mg BEDTIME ORAL 05/15/19 21:00 06/14/19 20:59 05/15/19 22:21 Ondansetron HCl (Zofran) 4 mg Q8H PRN IVP Nausea & Vomiting 05/15/19 09:45 06/14/19 09:44 Piperacillin Sod/ Tazobactam Sod 3.375 gm/Sodium Chloride 110 ml @ 27.5 mls/hr Q8HR IVPB 05/15/19 14:00 05/22/19 13:59 05/16/19 14:23 Quetiapine Fumarate (SEROqueL) 100 mg TWICE A DAY ORAL 05/15/19 18:00 06/14/19 17:59 05/16/19 17:10 Porfirio Daniel MD May 16, 2019 17:17
[2019-05-16] MEDS: Donepezil 5mg Tab ORAL SCH (21:47)
[2019-05-17] VITALS: BP 138/78
[2019-05-17] MEDS: Acetylcysteine 20% Soln 4ml HHN SCH ×6 (03:20→23:11)
[2019-05-17] MEDS: Albuterol/Ipratropium 3ml neb HHN SCH ×6 (03:20→23:11)
[2019-05-17 04:00] VITALS: BP 128/63
[2019-05-17] MEDS: Piperacillin/Tazobactam 3.375 GM in NS 110 ML IVPB SCH ×3 (05:40→21:51)
--- NOTE | 2019-05-17 07:17 | General Progress Note ---
Assessment/Plan Status: progressing Assessment/Plan: GI: Plan Problems: (1) Dysphagia (2) PEG (percutaneous endoscopic gastrostomy) adjustment/replacement/removal (3) PNA (pneumonia) (4) Protein-calorie malnutrition, severe (5) Dehydration Plan maintain patient NPO given the possibility of possible silent aspiration the patient needs a video swallow study, but given his dementia and non- compliant behaviors I doubt this will happen POLST reviewed noted only for trial artificial feeding, NO director of acquisitions artificial feeding. will contact family for decision will follow with additional recommendations NGTF for now Subjective ROS Limited/Unobtainable: No Allergies: Coded Allergies: PNEUMOCOCCAL VACCINE (Unverified Allergy, Unknown, 10/07/18) Objective Last 24 Hour Vital Signs Date Time Temp Pulse Resp B/P (MAP) Pulse Ox O2 Delivery O2 Flow Rate FiO2 05/17/19 04:00 97.7 100 20 128/63 (84) 97 05/17/19 04:00 2.0 05/17/19 04:00 101 05/17/19 03:22 77 18 99 Nasal Cannula 2.0 28 76 18 98 05/17/19 00:00 2.0 05/17/19 00:00 113 05/17/19 00:00 98.1 86 20 138/78 (98) 97 05/16/19 22:43 74 18 98 Nasal Cannula 2.0 28 74 18 98 05/16/19 21:00 Nasal Cannula 2.0 05/16/19 20:00 94 05/16/19 20:00 97.5 98 18 111/67 (82) 99 05/16/19 20:00 2.0 05/16/19 19:17 92 18 98 Nasal Cannula 2.0 28 93 18 98 05/16/19 19:16 98 Nasal Cannula 2.0 28 05/16/19 19:13 93 18 98 Nasal Cannula 2.0 28 05/16/19 16:30 97.1 84 19 121/69 (86) 98 05/16/19 16:00 67 05/16/19 16:00 97.1 84 19 121/69 (86) 98 05/16/19 16:00 2.0 05/16/19 15:10 77 18 99 Nasal Cannula 2.0 28 76 18 99 05/16/19 12:00 92 05/16/19 12:00 97.0 81 19 119/66 (83) 96 05/16/19 12:00 2.0 05/16/19 11:53 86 13 99 Nasal Cannula 2.0 28 89 12 98 05/16/19 09:00 Nasal Cannula 2.0 05/16/19 08:35 86 138/73 05/16/19 08:08 86 13 99 Nasal Cannula 2.0 28 88 12 98 05/16/19 08:07 98 Nasal Cannula 2.0 28 05/16/19 08:05 88 21 98 Nasal Cannula 2.0 28 05/16/19 08:00 97.9 91 19 138/73 (94) 100 05/16/19 08:00 2.0 05/16/19 08:00 88 Intake and Output 05/16/19 05/17/19 19:00 07:00 Intake Total 1686.666 ml 580 ml Balance 1686.666 ml 580 ml Free Water 200 ml IV Total 1186.666 ml Tube Feeding 300 ml 580 ml # Voids 1 3 Height (Feet): 6 Height (Inches): 0.00 Weight (Pounds): 180 General Appearance: no apparent distress EENT: normal ENT inspection Neck: supple Cardiovascular: normal rate Respiratory/Chest: decreased breath sounds Abdomen: normal bowel sounds, non tender, soft Extremities: non-tender Terence Anton MD May 17, 2019 07:17
[2019-05-17 08:00] VITALS: BP 103/62
[2019-05-17 08:40] LABS: BASOPHILS % (AUTO) 0.8 % (0.0-2.0); EOSINOPHILS % (AUTO) 2.8 % (0.0-3.0); HEMATOCRIT 44.6 % (42.0-52.0); HEMOGLOBIN 14.8 G/DL (14.2-18.0); LYMPHOCYTES % (AUTO) 16.6 % (20.0-45.0); MEAN CORPUSCULAR VOLUME 96 FL (80-99); MONOCYTES % (AUTO) 10.4 % (1.0-10.0); NEUTROPHILS % (AUTO) 69.4 % (45.0-75.0); PLATELET COUNT 288 K/UL (150-450); RED BLOOD COUNT 4.64 M/UL (4.70-6.10); RED CELL DISTRIBUTION WIDTH 13.3 % (11.6-14.8); WHITE BLOOD COUNT 13.4 K/UL (4.8-10.8)
[2019-05-17] MEDS: Benztropine 1mg tab ORAL SCH ×2 (08:43→18:11)
[2019-05-17] MEDS: Heparin 5000 units/ml inj SUBQ SCH ×2 (08:44→21:49)
[2019-05-17 10:34] LABS: ALANINE AMINOTRANSFERASE 45 U/L (12-78); ALBUMIN 2.7 G/DL (3.4-5.0); ALBUMIN/GLOBULIN RATIO 0.6 (1.0-2.7); ALKALINE PHOSPHATASE 128 U/L (46-116); ANION GAP 7 mmol/L (5-15); ASPARTATE AMINO TRANSFERASE 42 U/L (15-37); BILIRUBIN,TOTAL 0.4 MG/DL (0.2-1.0); BLOOD UREA NITROGEN 10 mg/dL (7-18); CALCIUM 9.4 MG/DL (8.5-10.1); CARBON DIOXIDE 31 MMOL/L (21-32); CHLORIDE 107 MMOL/L (98-107); POTASSIUM 3.6 MMOL/L (3.5-5.1); SODIUM 145 MMOL/L (136-145)
[2019-05-17 12:00] VITALS: BP 115/64
--- NOTE | 2019-05-17 14:01 | Infectious Diseases Prog Note ---
Assessment/Plan Assessment/Plan A: Pneumonia secodary to aspiration Atelectasis hypoxemia, hypertension, dementia. Hypercalcemia Fecal impaction P; Continue Zosyn Agree with PEG placement Subjective ROS Limited/Unobtainable: Yes Constitutional: Denies: fever Allergies: Coded Allergies: PNEUMOCOCCAL VACCINE (Unverified Allergy, Unknown, 10/07/18) Objective Vital Signs Last 24 Hour Vital Signs Date Time Temp Pulse Resp B/P (MAP) Pulse Ox O2 Delivery O2 Flow Rate FiO2 05/17/19 12:00 98.1 100 17 115/64 (81) 100 05/17/19 12:00 90 05/17/19 11:03 84 18 98 Nasal Cannula 2.0 28 82 18 97 05/17/19 09:00 Nasal Cannula 2.0 05/17/19 08:43 99 103/62 05/17/19 08:00 97.9 99 19 103/62 (76) 99 05/17/19 08:00 87 05/17/19 07:31 91 16 98 Nasal Cannula 2.0 28 05/17/19 07:31 98 Nasal Cannula 2.0 28 05/17/19 07:30 93 16 99 Nasal Cannula 2.0 28 91 16 98 05/17/19 04:00 97.7 100 20 128/63 (84) 97 05/17/19 04:00 2.0 05/17/19 04:00 101 05/17/19 03:22 77 18 99 Nasal Cannula 2.0 28 76 18 98 05/17/19 00:00 2.0 05/17/19 00:00 113 05/17/19 00:00 98.1 86 20 138/78 (98) 97 05/16/19 22:43 74 18 98 Nasal Cannula 2.0 28 74 18 98 05/16/19 21:00 Nasal Cannula 2.0 05/16/19 20:00 94 05/16/19 20:00 97.5 98 18 111/67 (82) 99 05/16/19 20:00 2.0 05/16/19 19:17 92 18 98 Nasal Cannula 2.0 28 93 18 98 05/16/19 19:16 98 Nasal Cannula 2.0 28 05/16/19 19:13 93 18 98 Nasal Cannula 2.0 28 05/16/19 16:30 97.1 84 19 121/69 (86) 98 05/16/19 16:00 67 05/16/19 16:00 97.1 84 19 121/69 (86) 98 05/16/19 16:00 2.0 05/16/19 15:10 77 18 99 Nasal Cannula 2.0 28 76 18 99 Height (Feet): 6 Height (Inches): 0.00 Weight (Pounds): 180 General Appearance: no acute distress HEENT: mucous membranes moist Respiratory/Chest: other - few rhonchi Cardiovascular: normal rate Abdomen: soft, non tender, other - GT feeding Extremities: no edema Neurologic/Psychiatric: unresponsiveness, aphasia Microbiology Date/Time Source Procedure Growth Status 05/15/19 04:25 Blood Blood Culture - Preliminary NO GROWTH AFTER 24 HOURS Resulted 05/15/19 04:20 Blood Blood Culture - Preliminary NO GROWTH AFTER 24 HOURS Resulted 05/15/19 07:50 Nasal Nares MRSA Culture - Final NO METHICILLIN RESISTANT STAPH AUREUS... Complete 05/15/19 04:20 Nasal Nares - Final Complete 05/15/19 04:20 Nasal Nares - Final Complete 05/15/19 17:40 Urine,Clean Catch Urine Culture - Preliminary NO GROWTH AFTER 24 HOURS Resulted 05/15/19 07:50 Rectum VRE Culture - Final NO VANCOMYCIN RESISTANT ENTEROCOCCUS ... Complete Laboratory Tests Test 05/17/19 07:15 05/17/19 09:50 White Blood Count 13.4 K/UL (4.8-10.8) H Red Blood Count 4.64 M/UL (4.70-6.10) L Hemoglobin 14.8 G/DL (14.2-18.0) Hematocrit 44.6 % (42.0-52.0) Mean Corpuscular Volume 96 FL (80-99) Mean Corpuscular Hemoglobin 31.9 PG (27.0-31.0) H Mean Corpuscular Hemoglobin Concent 33.2 G/DL (32.0-36.0) Red Cell Distribution Width 13.3 % (11.6-14.8) Platelet Count 288 K/UL (150-450) Mean Platelet Volume 5.3 FL (6.5-10.1) L Neutrophils (%) (Auto) 69.4 % (45.0-75.0) Lymphocytes (%) (Auto) 16.6 % (20.0-45.0) L Monocytes (%) (Auto) 10.4 % (1.0-10.0) H Eosinophils (%) (Auto) 2.8 % (0.0-3.0) Basophils (%) (Auto) 0.8 % (0.0-2.0) Sodium Level 145 MMOL/L (136-145) Potassium Level 3.6 MMOL/L (3.5-5.1) Chloride Level 107 MMOL/L (98-107) Carbon Dioxide Level 31 MMOL/L (21-32) Anion Gap 7 mmol/L (5-15) Blood Urea Nitrogen 10 mg/dL (7-18) Creatinine 1.0 MG/DL (0.55-1.30) Estimat Glomerular Filtration Rate mL/min (>60) Glucose Level 122 MG/DL (74-106) H Calcium Level 9.4 MG/DL (8.5-10.1) Total Bilirubin 0.4 MG/DL (0.2-1.0) Aspartate Amino Transf (AST/SGOT) 42 U/L (15-37) H Alanine Aminotransferase (ALT/SGPT) 45 U/L (12-78) Alkaline Phosphatase 128 U/L (46-116) H Total Protein 7.2 G/DL (6.4-8.2) Albumin 2.7 G/DL (3.4-5.0) L Globulin 4.5 g/dL Albumin/Globulin Ratio 0.6 (1.0-2.7) L Current Medications Medications (Trade) Dose Ordered Sig/Nidhi Route PRN Reason Start Time Stop Time Status Last Admin Dose Admin Acetaminophen (Tylenol) 650 mg Q6H PRN ORAL Mild Pain/Temp > 100.5 05/15/19 09:45 06/14/19 09:44 Acetylcysteine (Mucomyst) 200 mg Q4HRT [facility] 05/15/19 11:00 06/14/19 10:59 05/17/19 10:59 Albuterol/ Ipratropium (Albuterol/ Ipratropium) 3 ml Q4HRT [facility] 05/15/19 11:00 05/20/19 10:59 05/17/19 10:59 Amlodipine Besylate (Norvasc) 10 mg DAILY ORAL 05/16/19 09:00 06/15/19 08:59 05/17/19 08:43 Benztropine Mesylate (Cogentin) 0.5 mg TWICE A DAY ORAL 05/15/19 18:00 06/14/19 17:59 05/17/19 08:43 Dextrose/Sodium Chloride 1,000 ml @ 60 mls/hr [id number] IV 05/15/19 09:45 06/14/19 09:44 05/16/19 22:06 Donepezil HCl (Aricept) 5 mg QHS ORAL 05/15/19 21:00 06/14/19 20:59 05/16/19 21:47 Heparin Sodium (Porcine) (Heparin 5000 units/ml) 5,000 units EVERY 12 HOURS SUBQ 05/15/19 21:00 06/14/19 20:59 05/17/19 08:44 Levetiracetam (Keppra) 1,500 mg Q12HR ORAL 05/15/19 21:00 06/14/19 20:59 05/17/19 09:23 Mirtazapine (Remeron) 7.5 mg BEDTIME ORAL 05/15/19 21:00 06/14/19 20:59 05/16/19 21:47 Ondansetron HCl (Zofran) 4 mg Q8H PRN IVP Nausea & Vomiting 05/15/19 09:45 06/14/19 09:44 Piperacillin Sod/ Tazobactam Sod 3.375 gm/Sodium Chloride 110 ml @ 27.5 mls/hr Q8HR IVPB 05/15/19 14:00 05/22/19 13:59 05/17/19 05:40 Quetiapine Fumarate (SEROqueL) 100 mg TWICE A DAY ORAL 05/15/19 18:00 06/14/19 17:59 05/17/19 08:43 Curtis Farah MD May 17, 2019 14:01
--- NOTE | 2019-05-17 14:17 | Surgery Progress Note ---
Surgery Progress Note Subjective Additional Comments leukocytosis persistent labs noted alb 2.7 exam stable ng tube with feeds Objective Last 24 Hour Vital Signs Date Time Temp Pulse Resp B/P (MAP) Pulse Ox O2 Delivery O2 Flow Rate FiO2 05/17/19 12:00 98.1 100 17 115/64 (81) 100 05/17/19 12:00 90 05/17/19 11:03 84 18 98 Nasal Cannula 2.0 28 82 18 97 05/17/19 09:00 Nasal Cannula 2.0 05/17/19 08:43 99 103/62 05/17/19 08:00 97.9 99 19 103/62 (76) 99 05/17/19 08:00 87 05/17/19 07:31 91 16 98 Nasal Cannula 2.0 28 05/17/19 07:31 98 Nasal Cannula 2.0 28 05/17/19 07:30 93 16 99 Nasal Cannula 2.0 28 91 16 98 05/17/19 04:00 97.7 100 20 128/63 (84) 97 05/17/19 04:00 2.0 05/17/19 04:00 101 05/17/19 03:22 77 18 99 Nasal Cannula 2.0 28 76 18 98 05/17/19 00:00 2.0 05/17/19 00:00 113 05/17/19 00:00 98.1 86 20 138/78 (98) 97 05/16/19 22:43 74 18 98 Nasal Cannula 2.0 28 74 18 98 05/16/19 21:00 Nasal Cannula 2.0 05/16/19 20:00 94 05/16/19 20:00 97.5 98 18 111/67 (82) 99 05/16/19 20:00 2.0 05/16/19 19:17 92 18 98 Nasal Cannula 2.0 28 93 18 98 05/16/19 19:16 98 Nasal Cannula 2.0 28 05/16/19 19:13 93 18 98 Nasal Cannula 2.0 28 05/16/19 16:30 97.1 84 19 121/69 (86) 98 05/16/19 16:00 67 05/16/19 16:00 97.1 84 19 121/69 (86) 98 05/16/19 16:00 2.0 05/16/19 15:10 77 18 99 Nasal Cannula 2.0 28 76 18 99 I&O Intake and Output 05/16/19 05/17/19 19:00 07:00 Intake Total 1686.666 ml 735 ml Balance 1686.666 ml 735 ml Free Water 200 ml 100 ml IV Total 1186.666 ml Tube Feeding 300 ml 635 ml # Voids 1 4 Dressing: other Wound: other Drains: other Cardiovascular: RSR Respiratory: decreased breath sounds Abdomen: soft, present bowel sounds Extremities: no cyanosis, other Laboratory Tests Test 05/17/19 07:15 05/17/19 09:50 White Blood Count 13.4 K/UL (4.8-10.8) H Red Blood Count 4.64 M/UL (4.70-6.10) L Hemoglobin 14.8 G/DL (14.2-18.0) Hematocrit 44.6 % (42.0-52.0) Mean Corpuscular Volume 96 FL (80-99) Mean Corpuscular Hemoglobin 31.9 PG (27.0-31.0) H Mean Corpuscular Hemoglobin Concent 33.2 G/DL (32.0-36.0) Red Cell Distribution Width 13.3 % (11.6-14.8) Platelet Count 288 K/UL (150-450) Mean Platelet Volume 5.3 FL (6.5-10.1) L Neutrophils (%) (Auto) 69.4 % (45.0-75.0) Lymphocytes (%) (Auto) 16.6 % (20.0-45.0) L Monocytes (%) (Auto) 10.4 % (1.0-10.0) H Eosinophils (%) (Auto) 2.8 % (0.0-3.0) Basophils (%) (Auto) 0.8 % (0.0-2.0) Sodium Level 145 MMOL/L (136-145) Potassium Level 3.6 MMOL/L (3.5-5.1) Chloride Level 107 MMOL/L (98-107) Carbon Dioxide Level 31 MMOL/L (21-32) Anion Gap 7 mmol/L (5-15) Blood Urea Nitrogen 10 mg/dL (7-18) Creatinine 1.0 MG/DL (0.55-1.30) Estimat Glomerular Filtration Rate mL/min (>60) Glucose Level 122 MG/DL (74-106) H Calcium Level 9.4 MG/DL (8.5-10.1) Total Bilirubin 0.4 MG/DL (0.2-1.0) Aspartate Amino Transf (AST/SGOT) 42 U/L (15-37) H Alanine Aminotransferase (ALT/SGPT) 45 U/L (12-78) Alkaline Phosphatase 128 U/L (46-116) H Total Protein 7.2 G/DL (6.4-8.2) Albumin 2.7 G/DL (3.4-5.0) L Globulin 4.5 g/dL Albumin/Globulin Ratio 0.6 (1.0-2.7) L Plan Problems: (1) Protein-calorie malnutrition, severe Assessment & Plan: (1) Decubitus skin ulcer Assessment & Plan: Pt presented on admission with DTPI sacrum with surrounding non-blanching erythema over historical scar from previous wound. An area of induration noted to sacrococcygeal area measuring (L)2.5cm x (W)2cm. Non-blanching erythema R heel with an area of fluctuance and maroon at lateral aspect of heel(L)3cm x (W)2.5cm . Pt exhibited agitation when affected area minimally palpated. L heel is boggy with non-blanching erythema. Shaft and penile head including scrotum are erythematous. Tx.Plan: Apply Moisture Barrier Paste to sacrum. Cover with Optifoam drsg. Change every 3 days and prn. Apply Triad Paste to penis scrotum and groin areas with each incontinence care. Apply Cavilon Skin Barrier to both heel. Cover each heel with Optifoam drsg. Change every 7 days and prn. Reposition at least every 2hours or as tolerated. Off-load heels with pillow. APM/CHRISTOPHER Mattress overlay. (2) Leukocytosis likely related to pulm infiltrate wounds do not clinically look infected abx for pna pulm input abx as per ID (3) xxx (4) Protein-calorie malnutrition, severe Assessment & Plan: PEG? polst reviewed. (5) Lung mass Assessment & Plan: 2 cm pleural-based masslike opacity containing multiple nodular calcifications andadjacent parenchymal linear density persists in the anterolateral periphery of thelateral segment right middle lobe, unchanged. Adjacent small nodular parenchymaldensities persist, unchanged. Small irregular pleural-based linear densities persist in the dependent portions of both lung bases, unchanged. No new pulmonary parenchymal abnormality demonstrated. No pleural disease is evident. Nodularcalcification in right hilum unchanged. Clustered calcified nodules in the subcarinal region of mediastinum unchanged. No new mediastinal or hilar enlarged lymph nodes. Heart remains normal in size. No pericardial abnormality. Centralmediastinal vasculature remains unremarkable in appearance. noted prior in 2017. no path available cxr noted Rectal distention by feces, could indicate rectal fecal impaction Colonic diverticulosis. No evidence of diverticulitis Ectatic common bile duct. Probably on the basis of senescent changes given active evidence of downstream obstructing lesion, but occult downstream obstructive process not completely excludable. Correlate with liver function tests Basilar pulmonary consolidation and atelectasis. Pneumonia possible. Correlate with clinical findings Satisfactory position of nasogastric tube Right hip prosthesis bowel care enema PEG? Gabino Little May 17, 2019 14:17
--- NOTE | 2019-05-17 15:09 | Pulmonology Progress Note ---
Assessment/Plan Assessment/Plan Pulmonary Progress Note HPI Patient is a 69 year old male senior living patient with history of Chronic Obstructive Pulmonary Disease, Chronic Granulomatous Disease, Hypertension, Renal Myolipoma, history of seizures, dementia, encephalopathy, Diverticulosis, noncommunicative, admitted with respiratory distress, patient found to be hypoxic, congested, and more altered. No other history available. Recently discharged, had been treated for Pneumonia, Heel wound, noted to have high fever at [facility]. Also noted to have cough and increased congestion.Patient had prior history of dementia. History is markedly limited by patient's mental status. Awaiting PEG Allergies: PNEUMOCOCCAL VACCINE Past Medical History: Chronic Obstructive Pulmonary Disease, Chronic Granulomatous Disease, Hypertension, Diverticulosis, Renal Myolipoma, history of Seizures, history of Dementia, encephalopathy All Other Systems: limited - Not communicative Physical Exam Vital Signs Noted General Appearance: Wasted, Chronically Ill appearing Head: normocephalic, atraumatic Eyes: bilateral eye PERRL, bilateral eye EOMI ENT: uvula midline, dry mucus membranes Neck: supple, thyroid normal, supple/symm/no masses Respiratory: Bilateral rhonchi Cardiovascular: normal peripheral pulses, HS1, HS2, RRR, no edema, no gallop, no murmur, tachycardia Gastrointestinal: non tender, soft, no guarding, no rebound Musculoskeletal: normal inspection Neurologic: awake, chronically altered Skin: no rash, warm/dry Impression: Chronic obstructive pulmonary disease Healthcare-associated pneumonia Heel wounds Dyspnea, Hypoxia Dehydration Chronic Granulomatous Disease with two pleural based partially calcified areas Hypertension Diverticulosis Renal Myolipoma History of Seizures History of Dementia Chronic Encephalopathy Increased Calcium Plan - IV Antibiotics - PEG pending - HHN - O2 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 Infectious infiltrates not excluded. Clinical correlation/follow-up recommended. CT Abdomen: Lung bases: patchy infiltrates CT Chest: 2 cm pleural-based masslike opacity containing multiple nodular calcifications andadjacent parenchymal linear density persists in the anterolateral periphery of thelateral segment right middle lobe, unchanged. Adjacent small nodular parenchymaldensities persist, unchanged. Small irregular pleural-based linear densities persist in the dependent portions of both lung bases, unchanged. No new pulmonary parenchymal abnormality demonstrated. No pleural disease is evident. Nodularcalcification in right hilum unchanged. Clustered calcified nodules in the subcarinal region of mediastinum unchanged. No new mediastinal or hilar enlarged lymph nodes. Heart remains normal in size. No pericardial abnormality. Centralmediastinal vasculature remains unremarkable in appearance. Subjective ROS Limited/Unobtainable: No Allergies: Coded Allergies: PNEUMOCOCCAL VACCINE (Unverified Allergy, Unknown, 10/07/18) Objective Last 24 Hour Vital Signs Date Time Temp Pulse Resp B/P (MAP) Pulse Ox O2 Delivery O2 Flow Rate FiO2 05/17/19 15:07 96 16 100 Nasal Cannula 2.0 28 94 16 98 05/17/19 12:00 98.1 100 17 115/64 (81) 100 05/17/19 12:00 90 05/17/19 11:03 84 18 98 Nasal Cannula 2.0 28 82 18 97 05/17/19 09:00 Nasal Cannula 2.0 05/17/19 08:43 99 103/62 05/17/19 08:00 97.9 99 19 103/62 (76) 99 05/17/19 08:00 87 05/17/19 07:31 91 16 98 Nasal Cannula 2.0 28 05/17/19 07:31 98 Nasal Cannula 2.0 28 05/17/19 07:30 93 16 99 Nasal Cannula 2.0 28 91 16 98 05/17/19 04:00 97.7 100 20 128/63 (84) 97 05/17/19 04:00 2.0 05/17/19 04:00 101 05/17/19 03:22 77 18 99 Nasal Cannula 2.0 28 76 18 98 05/17/19 00:00 2.0 05/17/19 00:00 113 05/17/19 00:00 98.1 86 20 138/78 (98) 97 05/16/19 22:43 74 18 98 Nasal Cannula 2.0 28 74 18 98 05/16/19 21:00 Nasal Cannula 2.0 05/16/19 20:00 94 05/16/19 20:00 97.5 98 18 111/67 (82) 99 05/16/19 20:00 2.0 05/16/19 19:17 92 18 98 Nasal Cannula 2.0 28 93 18 98 05/16/19 19:16 98 Nasal Cannula 2.0 28 05/16/19 19:13 93 18 98 Nasal Cannula 2.0 28 05/16/19 16:30 97.1 84 121/69 (86) 98 05/16/19 16:00 67 05/16/19 16:00 97.1 84 19 121/69 (86) 98 05/16/19 16:00 2.0 05/16/19 15:10 77 18 99 Nasal Cannula 2.0 28 76 18 99 Intake and Output 05/16/19 05/17/19 19:00 07:00 Intake Total 1686.666 ml 735 ml Balance 1686.666 ml 735 ml Free Water 200 ml 100 ml IV Total 1186.666 ml Tube Feeding 300 ml 635 ml # Voids 1 4 Microbiology Date/Time Source Procedure Growth Status 05/15/19 04:25 Blood Blood Culture - Preliminary NO GROWTH AFTER 24 HOURS Resulted 05/15/19 04:20 Blood Blood Culture - Preliminary NO GROWTH AFTER 24 HOURS Resulted 05/15/19 07:50 Nasal Nares MRSA Culture - Final NO METHICILLIN RESISTANT STAPH AUREUS... Complete 05/15/19 04:20 Nasal Nares - Final Complete 05/15/19 04:20 Nasal Nares - Final Complete 05/15/19 17:40 Urine,Clean Catch Urine Culture - Preliminary NO GROWTH AFTER 24 HOURS Resulted 05/15/19 07:50 Rectum VRE Culture - Final NO VANCOMYCIN RESISTANT ENTEROCOCCUS ... Complete Laboratory Tests 05/17/19 07:15: White Blood Count 13.4H, Red Blood Count 4.64L, Hemoglobin 14.8, Hematocrit 44.6 , Mean Corpuscular Volume 96, Mean Corpuscular Hemoglobin 31.9H, Mean Corpuscular Hemoglobin Concent 33.2, Red Cell Distribution Width 13.3, Platelet Count 288, Mean Platelet Volume 5.3L, Neutrophils (%) (Auto) 69.4, Lymphocytes ( %) (Auto) 16.6L, Monocytes (%) (Auto) 10.4H, Eosinophils (%) (Auto) 2.8, Basophils (%) (Auto) 0.8 05/17/19 09:50: Sodium Level 145, Potassium Level 3.6, Chloride Level 107, Carbon Dioxide Level 31, Anion Gap 7, Blood Urea Nitrogen 10, Creatinine 1.0, Estimat Glomerular Filtration Rate , Glucose Level 122H, Calcium Level 9.4, Total Bilirubin 0.4, Aspartate Amino Transf (AST/SGOT) 42H, Alanine Aminotransferase (ALT/SGPT) 45, Alkaline Phosphatase 128H, Total Protein 7.2, Albumin 2.7L, Globulin 4.5, Albumin/Globulin Ratio 0.6L Current Medications Medications (Trade) Dose Ordered Sig/Nidhi Route PRN Reason Start Time Stop Time Status Last Admin Dose Admin Acetaminophen (Tylenol) 650 mg Q6H PRN ORAL Mild Pain/Temp > 100.5 05/15/19 09:45 06/14/19 09:44 Acetylcysteine (Mucomyst) 200 mg Q4HRT [facility] 05/15/19 11:00 06/14/19 10:59 05/17/19 15:04 Albuterol/ Ipratropium (Albuterol/ Ipratropium) 3 ml Q4HRT [facility] 05/15/19 11:00 05/20/19 10:59 05/17/19 15:04 Amlodipine Besylate (Norvasc) 10 mg DAILY ORAL 05/16/19 09:00 06/15/19 08:59 05/17/19 08:43 Benztropine Mesylate (Cogentin) 0.5 mg TWICE A DAY ORAL 05/15/19 18:00 06/14/19 17:59 05/17/19 08:43 Dextrose/Sodium Chloride 1,000 ml @ 60 mls/hr [id number] IV 05/15/19 09:45 06/14/19 09:44 05/16/19 22:06 Donepezil HCl (Aricept) 5 mg QHS ORAL 05/15/19 21:00 06/14/19 20:59 05/16/19 21:47 Heparin Sodium (Porcine) (Heparin 5000 units/ml) 5,000 units EVERY 12 HOURS SUBQ 05/15/19 21:00 06/14/19 20:59 05/17/19 08:44 Levetiracetam (Keppra) 1,500 mg Q12HR ORAL 05/15/19 21:00 06/14/19 20:59 05/17/19 09:23 Mirtazapine (Remeron) 7.5 mg BEDTIME ORAL 05/15/19 21:00 06/14/19 20:59 05/16/19 21:47 Ondansetron HCl (Zofran) 4 mg Q8H PRN IVP Nausea & Vomiting 05/15/19 09:45 06/14/19 09:44 Piperacillin Sod/ Tazobactam Sod 3.375 gm/Sodium Chloride 110 ml @ 27.5 mls/hr Q8HR IVPB 05/15/19 14:00 05/22/19 13:59 05/17/19 14:20 Quetiapine Fumarate (SEROqueL) 100 mg TWICE A DAY ORAL 05/15/19 18:00 06/14/19 17:59 05/17/19 08:43 Porfirio Daniel MD May 17, 2019 15:09
[2019-05-17 16:00] VITALS: BP 114/61
--- NOTE | 2019-05-17 16:25 | Cardiology Progress Note ---
Assessment/Plan Assessment/Plan 1. Dyspnea, likely due to underlying bilateral healthcare-associated pneumonia. Continue IV antibiotics, 2D echo reveals normal LV systolic and diastolic function, LVEF at 65% with normal intracardiac filling pressure. 2. History of chronic obstructive pulmonary disease. 3. History of encephalopathy, nonverbal status. 4. History of seizure disorder, on Keppra. 5. Sinus tachycardia, resolved, continue hydration. 6. History of hypertension, continue amlodipine Subjective Subjective Sinus rhythm at rate of 83. Objective Last 24 Hour Vital Signs Date Time Temp Pulse Resp B/P (MAP) Pulse Ox O2 Delivery O2 Flow Rate FiO2 05/17/19 16:00 98.1 94 20 114/61 (78) 98 05/17/19 15:07 96 16 100 Nasal Cannula 2.0 28 94 16 98 05/17/19 12:00 98.1 100 17 115/64 (81) 100 05/17/19 12:00 90 05/17/19 11:03 84 18 98 Nasal Cannula 2.0 28 82 18 97 05/17/19 09:00 Nasal Cannula 2.0 05/17/19 08:43 99 103/62 05/17/19 08:00 97.9 99 19 103/62 (76) 99 05/17/19 08:00 87 05/17/19 07:31 91 16 98 Nasal Cannula 2.0 28 05/17/19 07:31 98 Nasal Cannula 2.0 28 05/17/19 07:30 93 16 99 Nasal Cannula 2.0 28 91 16 98 05/17/19 04:00 97.7 100 20 128/63 (84) 97 05/17/19 04:00 2.0 05/17/19 04:00 101 05/17/19 03:22 77 18 99 Nasal Cannula 2.0 28 76 18 98 05/17/19 00:00 2.0 05/17/19 00:00 113 05/17/19 00:00 98.1 86 20 138/78 (98) 97 05/16/19 22:43 74 18 98 Nasal Cannula 2.0 28 74 18 98 05/16/19 21:00 Nasal Cannula 2.0 05/16/19 20:00 94 05/16/19 20:00 97.5 98 18 111/67 (82) 99 05/16/19 20:00 2.0 05/16/19 19:17 92 18 98 Nasal Cannula 2.0 28 93 18 98 05/16/19 19:16 98 Nasal Cannula 2.0 28 05/16/19 19:13 93 18 98 Nasal Cannula 2.0 28 05/16/19 16:30 97.1 84 19 121/69 (86) 98 Intake and Output 05/16/19 05/17/19 19:00 07:00 Intake Total 1686.666 ml 735 ml Balance 1686.666 ml 735 ml Free Water 200 ml 100 ml IV Total 1186.666 ml Tube Feeding 300 ml 635 ml # Voids 1 4 2D Echo: LVEF 65%, Mild LVH, RVSP 16 mmHg, Normal LV Diastolic fxn. Laboratory Tests Test 05/17/19 07:15 05/17/19 09:50 White Blood Count 13.4 K/UL (4.8-10.8) H Red Blood Count 4.64 M/UL (4.70-6.10) L Hemoglobin 14.8 G/DL (14.2-18.0) Hematocrit 44.6 % (42.0-52.0) Mean Corpuscular Volume 96 FL (80-99) Mean Corpuscular Hemoglobin 31.9 PG (27.0-31.0) H Mean Corpuscular Hemoglobin Concent 33.2 G/DL (32.0-36.0) Red Cell Distribution Width 13.3 % (11.6-14.8) Platelet Count 288 K/UL (150-450) Mean Platelet Volume 5.3 FL (6.5-10.1) L Neutrophils (%) (Auto) 69.4 % (45.0-75.0) Lymphocytes (%) (Auto) 16.6 % (20.0-45.0) L Monocytes (%) (Auto) 10.4 % (1.0-10.0) H Eosinophils (%) (Auto) 2.8 % (0.0-3.0) Basophils (%) (Auto) 0.8 % (0.0-2.0) Sodium Level 145 MMOL/L (136-145) Potassium Level 3.6 MMOL/L (3.5-5.1) Chloride Level 107 MMOL/L (98-107) Carbon Dioxide Level 31 MMOL/L (21-32) Anion Gap 7 mmol/L (5-15) Blood Urea Nitrogen 10 mg/dL (7-18) Creatinine 1.0 MG/DL (0.55-1.30) Estimat Glomerular Filtration Rate mL/min (>60) Glucose Level 122 MG/DL (74-106) H Calcium Level 9.4 MG/DL (8.5-10.1) Total Bilirubin 0.4 MG/DL (0.2-1.0) Aspartate Amino Transf (AST/SGOT) 42 U/L (15-37) H Alanine Aminotransferase (ALT/SGPT) 45 U/L (12-78) Alkaline Phosphatase 128 U/L (46-116) H Total Protein 7.2 G/DL (6.4-8.2) Albumin 2.7 G/DL (3.4-5.0) L Globulin 4.5 g/dL Albumin/Globulin Ratio 0.6 (1.0-2.7) L Microbiology Date/Time Source Procedure Growth Status 05/15/19 04:25 Blood Blood Culture - Preliminary NO GROWTH AFTER 24 HOURS Resulted 05/15/19 04:20 Blood Blood Culture - Preliminary NO GROWTH AFTER 24 HOURS Resulted 05/15/19 07:50 Nasal Nares MRSA Culture - Final NO METHICILLIN RESISTANT STAPH AUREUS... Complete 05/15/19 04:20 Nasal Nares - Final Complete 05/15/19 04:20 Nasal Nares - Final Complete 05/15/19 17:40 Urine,Clean Catch Urine Culture - Preliminary NO GROWTH AFTER 24 HOURS Resulted 05/15/19 07:50 Rectum VRE Culture - Final NO VANCOMYCIN RESISTANT ENTEROCOCCUS ... Complete Objective HEENT: Atraumatic and normocephalic. Anicteric sclerae. Pupils are equal, round, and reactive to light and accommodation. Extraocular muscles intact. NECK: JVP less than 5 cm. No carotid bruit. Carotid upstroke is 2+ bilaterally. CARDIOVASCULAR: Normal S1, S2. Regular rate and rhythm. No murmurs, gallops, or rubs. PMI is at fourth intercostal space in the midclavicular line. LUNGS: Diminished breath sounds in both bases with associated crackles. ABDOMEN: Soft, nontender, and nondistended. No hepatosplenomegaly. Positive bowel sounds. EXTREMITIES: No evidence of edema, clubbing, or cyanosis. Sajan Altman MD May 17, 2019 16:25
[2019-05-17 20:00] VITALS: BP 137/67
--- NOTE | 2019-05-17 21:05 | General Progress Note ---
Assessment/Plan Problem List: (1) PNA (pneumonia) ICD Codes: J18.9 - Pneumonia, unspecified organism SNOMED: 936364242 (2) Fever ICD Codes: R50.9 - Fever, unspecified SNOMED: 699069449 (3) Protein-calorie malnutrition, severe ICD Codes: E43 - Unspecified severe protein-calorie malnutrition SNOMED: 185276984 (4) Dysphagia ICD Codes: R13.10 - Dysphagia, unspecified SNOMED: 68413734, 207851881 (5) Decubitus skin ulcer ICD Codes: L89.90 - Pressure ulcer of unspecified site, unspecified stage SNOMED: 379879702 (6) Schizophrenia ICD Codes: F20.9 - Schizophrenia, unspecified SNOMED: 79570810 (7) Acute febrile illness ICD Codes: R50.9 - Fever, unspecified SNOMED: 587953178 Status: progressing Assessment/Plan: check labs confused not improved malnutrition reviewed chart nad labs Subjective ROS Limited/Unobtainable: Yes Allergies: Coded Allergies: PNEUMOCOCCAL VACCINE (Unverified Allergy, Unknown, 10/07/18) Objective Last 24 Hour Vital Signs Date Time Temp Pulse Resp B/P (MAP) Pulse Ox O2 Delivery O2 Flow Rate FiO2 05/17/19 20:02 97 18 100 Nasal Cannula 2.0 28 97 18 98 05/17/19 20:02 98 Nasal Cannula 2.0 28 05/17/19 16:00 98.1 94 20 114/61 (78) 98 05/17/19 16:00 83 05/17/19 15:07 96 16 100 Nasal Cannula 2.0 28 94 16 98 05/17/19 12:00 98.1 100 17 115/64 (81) 100 05/17/19 12:00 90 05/17/19 11:03 84 18 98 Nasal Cannula 2.0 28 82 18 97 05/17/19 09:00 Nasal Cannula 2.0 05/17/19 08:43 99 103/62 05/17/19 08:00 97.9 99 19 103/62 (76) 99 05/17/19 08:00 87 05/17/19 07:31 91 16 98 Nasal Cannula 2.0 28 05/17/19 07:31 98 Nasal Cannula 2.0 28 05/17/19 07:30 93 16 99 Nasal Cannula 2.0 28 91 16 98 05/17/19 04:00 97.7 100 20 128/63 (84) 97 05/17/19 04:00 2.0 05/17/19 04:00 101 05/17/19 03:22 77 18 99 Nasal Cannula 2.0 28 76 18 98 05/17/19 00:00 2.0 05/17/19 00:00 113 05/17/19 00:00 98.1 86 20 138/78 (98) 97 05/16/19 22:43 74 18 98 Nasal Cannula 2.0 28 74 18 98 Intake and Output 05/16/19 05/17/19 18:59 06:59 Intake Total 1636.666 ml 630 ml Balance 1636.666 ml 630 ml Free Water 200 ml IV Total 1186.666 ml Tube Feeding 250 ml 630 ml # Voids 1 3 Laboratory Tests 05/17/19 07:15: White Blood Count 13.4H, Red Blood Count 4.64L, Hemoglobin 14.8, Hematocrit 44.6 , Mean Corpuscular Volume 96, Mean Corpuscular Hemoglobin 31.9H, Mean Corpuscular Hemoglobin Concent 33.2, Red Cell Distribution Width 13.3, Platelet Count 288, Mean Platelet Volume 5.3L, Neutrophils (%) (Auto) 69.4, Lymphocytes ( %) (Auto) 16.6L, Monocytes (%) (Auto) 10.4H, Eosinophils (%) (Auto) 2.8, Basophils (%) (Auto) 0.8 05/17/19 09:50: Sodium Level 145, Potassium Level 3.6, Chloride Level 107, Carbon Dioxide Level 31, Anion Gap 7, Blood Urea Nitrogen 10, Creatinine 1.0, Estimat Glomerular Filtration Rate , Glucose Level 122H, Calcium Level 9.4, Total Bilirubin 0.4, Aspartate Amino Transf (AST/SGOT) 42H, Alanine Aminotransferase (ALT/SGPT) 45, Alkaline Phosphatase 128H, Total Protein 7.2, Albumin 2.7L, Globulin 4.5, Albumin/Globulin Ratio 0.6L Height (Feet): 6 Height (Inches): 0.00 Weight (Pounds): 180 Cardiovascular: normal rate Respiratory/Chest: lungs clear Abdomen: soft Konrad Soares MD May 17, 2019 21:05
[2019-05-17] MEDS: Donepezil 5mg Tab ORAL SCH (21:47)
[2019-05-18] VITALS: BP 129/70
[2019-05-18] MEDS: Acetylcysteine 20% Soln 4ml HHN SCH ×6 (03:38→23:45)
[2019-05-18] MEDS: Albuterol/Ipratropium 3ml neb HHN SCH ×6 (03:38→23:41)
[2019-05-18 04:00] VITALS: BP 131/81
[2019-05-18] MEDS: D5 1/2NS 1,000 ML IV SCH ×2 (04:25→22:12)
[2019-05-18] MEDS: Piperacillin/Tazobactam 3.375 GM in NS 110 ML IVPB SCH ×3 (05:06→22:11)
--- NOTE | 2019-05-18 07:49 | General Progress Note ---
Assessment/Plan Status: progressing Assessment/Plan: GI: Plan Problems: (1) Dysphagia (2) PEG (percutaneous endoscopic gastrostomy) adjustment/replacement/removal (3) PNA (pneumonia) (4) Protein-calorie malnutrition, severe (5) Dehydration Plan maintain patient NPO given the possibility of possible silent aspiration the patient needs a video swallow study, but given his dementia and non- compliant behaviors I doubt this will happen POLST reviewed noted only for trial artificial feeding, NO supervisor intermediates artificial feeding. will contact family for decision will follow with additional recommendations NGTF for now Subjective ROS Limited/Unobtainable: No Allergies: Coded Allergies: PNEUMOCOCCAL VACCINE (Unverified Allergy, Unknown, 10/07/18) Objective Last 24 Hour Vital Signs Date Time Temp Pulse Resp B/P (MAP) Pulse Ox O2 Delivery O2 Flow Rate FiO2 05/18/19 07:38 89 18 100 Nasal Cannula 2.0 28 86 18 97 05/18/19 07:38 73 16 98 Nasal Cannula 2.0 28 05/18/19 07:38 98 Nasal Cannula 2.0 28 05/18/19 04:00 92 05/18/19 04:00 97.3 107 20 131/81 (98) 94 05/18/19 03:54 95 20 98 Nasal Cannula 2.0 28 05/18/19 03:38 91 18 96 Nasal Cannula 2.0 28 05/18/19 00:00 101 05/18/19 00:00 97.3 104 19 129/70 (89) 94 05/17/19 23:13 89 18 100 Nasal Cannula 2.0 28 84 18 97 05/17/19 21:00 Nasal Cannula 2.0 05/17/19 20:02 97 18 100 Nasal Cannula 2.0 28 97 18 98 05/17/19 20:02 98 Nasal Cannula 2.0 28 05/17/19 20:00 97.9 97 21 137/67 (90) 96 05/17/19 20:00 88 05/17/19 16:00 98.1 94 20 114/61 (78) 98 05/17/19 16:00 83 05/17/19 15:07 96 16 100 Nasal Cannula 2.0 28 94 16 98 05/17/19 12:00 98.1 100 17 115/64 (81) 100 05/17/19 12:00 90 05/17/19 11:03 84 18 98 Nasal Cannula 2.0 28 82 18 97 05/17/19 09:00 Nasal Cannula 2.0 05/17/19 08:43 99 103/62 05/17/19 08:00 97.9 99 19 103/62 (76) 99 05/17/19 08:00 87 Intake and Output 05/17/19 05/18/19 19:00 07:00 Intake Total 440 ml 660 ml Balance 440 ml 660 ml Tube Feeding 440 ml 660 ml # Voids 2 Laboratory Tests 05/17/19 09:50: Sodium Level 145, Potassium Level 3.6, Chloride Level 107, Carbon Dioxide Level 31, Anion Gap 7, Blood Urea Nitrogen 10, Creatinine 1.0, Estimat Glomerular Filtration Rate , Glucose Level 122H, Calcium Level 9.4, Total Bilirubin 0.4, Aspartate Amino Transf (AST/SGOT) 42H, Alanine Aminotransferase (ALT/SGPT) 45, Alkaline Phosphatase 128H, Total Protein 7.2, Albumin 2.7L, Globulin 4.5, Albumin/Globulin Ratio 0.6L Height (Feet): 6 Height (Inches): 0.00 Weight (Pounds): 180 General Appearance: lethargic EENT: normal ENT inspection Neck: supple Cardiovascular: normal rate Respiratory/Chest: decreased breath sounds Abdomen: normal bowel sounds, non tender, soft Extremities: non-tender Terence Anton MD May 18, 2019 07:49
[2019-05-18 08:00] VITALS: BP 125/71
[2019-05-18] MEDS: Benztropine 1mg tab ORAL SCH ×2 (09:35→18:35)
[2019-05-18] MEDS: Heparin 5000 units/ml inj SUBQ SCH ×2 (09:37→22:14)
[2019-05-18 12:00] VITALS: BP 115/61
--- NOTE | 2019-05-18 14:38 | Surgery Progress Note ---
Surgery Progress Note Subjective Additional Comments no acute events stable Objective Last 24 Hour Vital Signs Date Time Temp Pulse Resp B/P (MAP) Pulse Ox O2 Delivery O2 Flow Rate FiO2 05/18/19 12:00 82 05/18/19 12:00 98.1 82 18 115/61 (79) 97 05/18/19 10:55 89 18 100 Nasal Cannula 2.0 28 84 18 99 05/18/19 09:35 61 122/75 05/18/19 09:00 Nasal Cannula 2.0 05/18/19 08:00 95 05/18/19 08:00 97.9 81 20 125/71 (89) 98 05/18/19 07:38 89 18 100 Nasal Cannula 2.0 28 86 18 97 05/18/19 07:38 73 16 98 Nasal Cannula 2.0 28 05/18/19 07:38 98 Nasal Cannula 2.0 28 05/18/19 04:00 92 05/18/19 04:00 97.3 107 20 131/81 (98) 94 05/18/19 03:54 95 20 98 Nasal Cannula 2.0 28 05/18/19 03:38 91 18 96 Nasal Cannula 2.0 28 05/18/19 00:00 101 05/18/19 00:00 97.3 104 19 129/70 (89) 94 05/17/19 23:13 89 18 100 Nasal Cannula 2.0 28 84 18 97 05/17/19 21:00 Nasal Cannula 2.0 05/17/19 20:02 97 18 100 Nasal Cannula 2.0 28 97 18 98 05/17/19 20:02 98 Nasal Cannula 2.0 28 05/17/19 20:00 97.9 97 21 137/67 (90) 96 05/17/19 20:00 88 05/17/19 16:00 98.1 94 20 114/61 (78) 98 05/17/19 16:00 83 05/17/19 15:07 96 16 100 Nasal Cannula 2.0 28 94 16 98 I&O Intake and Output 05/17/19 05/18/19 19:00 07:00 Intake Total 440 ml 660 ml Balance 440 ml 660 ml Tube Feeding 440 ml 660 ml # Voids 2 Dressing: other Wound: other Cardiovascular: RSR Respiratory: clear, decreased breath sounds Abdomen: soft, present bowel sounds Extremities: no tenderness, no cyanosis Plan Problems: (1) Protein-calorie malnutrition, severe Assessment & Plan: (1) Decubitus skin ulcer Assessment & Plan: Pt presented on admission with DTPI sacrum with surrounding non-blanching erythema over historical scar from previous wound. An area of induration noted to sacrococcygeal area measuring (L)2.5cm x (W)2cm. Non-blanching erythema R heel with an area of fluctuance and maroon at lateral aspect of heel(L)3cm x (W)2.5cm . Pt exhibited agitation when affected area minimally palpated. L heel is boggy with non-blanching erythema. Shaft and penile head including scrotum are erythematous. Tx.Plan: Apply Moisture Barrier Paste to sacrum. Cover with Optifoam drsg. Change every 3 days and prn. Apply Triad Paste to penis scrotum and groin areas with each incontinence care. Apply Cavilon Skin Barrier to both heel. Cover each heel with Optifoam drsg. Change every 7 days and prn. Reposition at least every 2hours or as tolerated. Off-load heels with pillow. APM/CHRISTOPHER Mattress overlay. (2) Leukocytosis likely related to pulm infiltrate wounds do not clinically look infected abx for pna pulm input abx as per ID (3) xxx (4) Protein-calorie malnutrition, severe Assessment & Plan: PEG? polst reviewed. (5) Lung mass Assessment & Plan: 2 cm pleural-based masslike opacity containing multiple nodular calcifications andadjacent parenchymal linear density persists in the anterolateral periphery of thelateral segment right middle lobe, unchanged. Adjacent small nodular parenchymaldensities persist, unchanged. Small irregular pleural-based linear densities persist in the dependent portions of both lung bases, unchanged. No new pulmonary parenchymal abnormality demonstrated. No pleural disease is evident. Nodularcalcification in right hilum unchanged. Clustered calcified nodules in the subcarinal region of mediastinum unchanged. No new mediastinal or hilar enlarged lymph nodes. Heart remains normal in size. No pericardial abnormality. Centralmediastinal vasculature remains unremarkable in appearance. noted prior in 2017. no path available cxr noted Rectal distention by feces, could indicate rectal fecal impaction Colonic diverticulosis. No evidence of diverticulitis Ectatic common bile duct. Probably on the basis of senescent changes given active evidence of downstream obstructing lesion, but occult downstream obstructive process not completely excludable. Correlate with liver function tests Basilar pulmonary consolidation and atelectasis. Pneumonia possible. Correlate with clinical findings Satisfactory position of nasogastric tube Right hip prosthesis bowel care enema PEG? Gabino Little May 18, 2019 14:38
--- NOTE | 2019-05-18 15:56 | Hematology/Onc Progress Note ---
Assessment/Plan Assessment/Plan # Hypercalcemia r/o malignancy, r/o myeloma, elevated on admission, may be 2/2 dehydration --> Ca 10.2-->9.5->10.7, pth is wnl, spep is also wnl as is upep --> on iv fluids as per pcp --> renal eval prn --> pth on prior admission was 42 # Multiple lung nodules -- in 2017 2 cm pleural-based masslike opacity containing multiple nodular calcifications andadjacent parenchymal linear density persists in the anterolateral periphery of thelateral segment right middle lobe, unchanged. Adjacent small nodular parenchymaldensities persist, unchanged. 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 Greatly appreciate consultation! Subjective Allergies: Coded Allergies: PNEUMOCOCCAL VACCINE (Unverified Allergy, Unknown, 10/07/18) Subjective 05/15 noncommunicative, was here yesterday and readmitted with ams and copd exacerbation, seen by Fredy 05/16: ngt in place, placed yesterday, is on fluids, sleepy this am 05/18: no acute events, no labs today, urine cx negative , nc Objective Objective Current Medications Medications (Trade) Dose Ordered Sig/Nidhi Route PRN Reason Start Time Stop Time Status Last Admin Dose Admin Acetaminophen (Tylenol) 650 mg Q6H PRN ORAL Mild Pain/Temp > 100.5 05/15/19 09:45 06/14/19 09:44 Acetylcysteine (Mucomyst) 200 mg Q4HRT HHN 05/15/19 11:00 06/14/19 10:59 05/18/19 15:21 Albuterol/ Ipratropium (Albuterol/ Ipratropium) 3 ml Q4HRT HHN 05/15/19 11:00 05/20/19 10:59 05/18/19 15:21 Amlodipine Besylate (Norvasc) 10 mg DAILY ORAL 05/16/19 09:00 06/15/19 08:59 05/18/19 09:35 Benztropine Mesylate (Cogentin) 0.5 mg TWICE A DAY ORAL 05/15/19 18:00 06/14/19 17:59 05/18/19 09:35 Dextrose/Sodium Chloride 1,000 ml @ 60 mls/hr [id number] IV 05/15/19 09:45 06/14/19 09:44 05/16/19 22:06 Donepezil HCl (Aricept) 5 mg QHS ORAL 05/15/19 21:00 06/14/19 20:59 05/17/19 21:47 Heparin Sodium (Porcine) (Heparin 5000 units/ml) 5,000 units EVERY 12 HOURS SUBQ 05/15/19 21:00 06/14/19 20:59 05/18/19 09:37 Levetiracetam (Keppra) 1,500 mg Q12HR ORAL 05/15/19 21:00 06/14/19 20:59 05/18/19 09:34 Mirtazapine (Remeron) 7.5 mg BEDTIME ORAL 05/15/19 21:00 06/14/19 20:59 05/17/19 21:47 Ondansetron HCl (Zofran) 4 mg Q8H PRN IVP Nausea & Vomiting 05/15/19 09:45 06/14/19 09:44 Piperacillin Sod/ Tazobactam Sod 3.375 gm/Sodium Chloride 110 ml @ 27.5 mls/hr Q8HR IVPB 05/15/19 14:00 05/22/19 13:59 05/18/19 05:06 Quetiapine Fumarate (SEROqueL) 100 mg TWICE A DAY ORAL 05/15/19 18:00 06/14/19 17:59 05/18/19 09:34 Last 24 Hour Vital Signs Date Time Temp Pulse Resp B/P (MAP) Pulse Ox O2 Delivery O2 Flow Rate FiO2 05/18/19 15:22 88 18 100 Nasal Cannula 2.0 28 85 18 99 05/18/19 12:00 82 05/18/19 12:00 98.1 82 18 115/61 (79) 97 05/18/19 10:55 89 18 100 Nasal Cannula 2.0 28 84 18 99 05/18/19 09:35 61 122/75 05/18/19 09:00 Nasal Cannula 2.0 05/18/19 08:00 95 05/18/19 08:00 97.9 81 20 125/71 (89) 98 05/18/19 07:38 89 18 100 Nasal Cannula 2.0 28 86 18 97 05/18/19 07:38 73 16 98 Nasal Cannula 2.0 28 05/18/19 07:38 98 Nasal Cannula 2.0 28 05/18/19 04:00 92 05/18/19 04:00 97.3 107 20 131/81 (98) 94 05/18/19 03:54 95 20 98 Nasal Cannula 2.0 28 05/18/19 03:38 91 18 96 Nasal Cannula 2.0 28 05/18/19 00:00 101 05/18/19 00:00 97.3 104 19 129/70 (89) 94 05/17/19 23:13 89 18 100 Nasal Cannula 2.0 28 84 18 97 05/17/19 21:00 Nasal Cannula 2.0 05/17/19 20:02 97 18 100 Nasal Cannula 2.0 28 97 18 98 05/17/19 20:02 98 Nasal Cannula 2.0 28 05/17/19 20:00 97.9 97 21 137/67 (90) 96 05/17/19 20:00 88 05/17/19 16:00 98.1 94 20 114/61 (78) 98 05/17/19 16:00 83 05/17/19 15:07 96 16 100 Nasal Cannula 2.0 28 94 16 98 05/17/19 12:00 98.1 100 17 115/64 (81) 100 05/17/19 12:00 90 05/17/19 11:03 84 18 98 Nasal Cannula 2.0 28 82 18 97 05/17/19 09:00 Nasal Cannula 2.0 05/17/19 08:43 99 103/62 05/17/19 08:00 97.9 99 19 103/62 (76) 99 05/17/19 08:00 87 05/17/19 07:31 91 16 98 Nasal Cannula 2.0 28 05/17/19 07:31 98 Nasal Cannula 2.0 28 05/17/19 07:30 93 16 99 Nasal Cannula 2.0 28 91 16 98 05/17/19 04:00 97.7 100 20 128/63 (84) 97 05/17/19 04:00 2.0 05/17/19 04:00 101 05/17/19 03:22 77 18 99 Nasal Cannula 2.0 28 76 18 98 05/17/19 00:00 2.0 05/17/19 00:00 113 05/17/19 00:00 98.1 86 20 138/78 (98) 97 05/16/19 22:43 74 18 98 Nasal Cannula 2.0 28 74 18 98 05/16/19 21:00 Nasal Cannula 2.0 05/16/19 20:00 94 05/16/19 20:00 97.5 98 18 111/67 (82) 99 05/16/19 20:00 2.0 05/16/19 19:17 92 18 98 Nasal Cannula 2.0 28 93 18 98 05/16/19 19:16 98 Nasal Cannula 2.0 28 05/16/19 19:13 93 18 98 Nasal Cannula 2.0 28 05/16/19 16:30 97.1 84 19 121/69 (86) 98 05/16/19 16:00 67 05/16/19 16:00 97.1 84 19 121/69 (86) 98 05/16/19 16:00 2.0 Intake and Output 05/17/19 05/18/19 19:00 07:00 Intake Total 440 ml 715 ml Balance 440 ml 715 ml Tube Feeding 440 ml 715 ml # Voids 2 Labs Test 05/15/19 17:40 05/16/19 06:49 05/17/19 07:15 05/17/19 09:50 Urine Color Yellow Urine Appearance Clear Urine pH 5 (4.5-8.0) Urine Specific [place] 1.020 (1.005-1.035) Urine Protein 2+ (NEGATIVE) Urine Glucose (UA) Negative (NEGATIVE) Urine Ketones 3+ (NEGATIVE) Urine Blood 1+ (NEGATIVE) Urine Nitrite Negative (NEGATIVE) Urine Bilirubin Negative (NEGATIVE) Urine Urobilinogen 1 MG/DL (0.0-1.0) Urine Leukocyte Esterase 1+ (NEGATIVE) Urine RBC 2-4 /HPF (0 - 0) Urine WBC 2-4 /HPF (0 - 0) Urine Squamous Epithelial Cells None /LPF (NONE/OCC) Urine Bacteria Few /HPF (NONE) White Blood Count 13.4 K/UL (4.8-10.8) 13.4 K/UL (4.8-10.8) Red Blood Count 4.49 M/UL (4.70-6.10) 4.64 M/UL (4.70-6.10) Hemoglobin 14.0 G/DL (14.2-18.0) 14.8 G/DL (14.2-18.0) Hematocrit 43.0 % (42.0-52.0) 44.6 % (42.0-52.0) Mean Corpuscular Volume 96 FL (80-99) 96 FL (80-99) Mean Corpuscular Hemoglobin 31.1 PG (27.0-31.0) 31.9 PG (27.0-31.0) Mean Corpuscular Hemoglobin Concent 32.5 G/DL (32.0-36.0) 33.2 G/DL (32.0-36.0) Red Cell Distribution Width 13.4 % (11.6-14.8) 13.3 % (11.6-14.8) Platelet Count 304 K/UL (150-450) 288 K/UL (150-450) Mean Platelet Volume 5.7 FL (6.5-10.1) 5.3 FL (6.5-10.1) Neutrophils (%) (Auto) 69.5 % (45.0-75.0) 69.4 % (45.0-75.0) Lymphocytes (%) (Auto) 21.5 % (20.0-45.0) 16.6 % (20.0-45.0) Monocytes (%) (Auto) 6.9 % (1.0-10.0) 10.4 % (1.0-10.0) Eosinophils (%) (Auto) 1.0 % (0.0-3.0) 2.8 % (0.0-3.0) Basophils (%) (Auto) 1.1 % (0.0-2.0) 0.8 % (0.0-2.0) Erythrocyte Sedimentation Rate 32 MM/HR (0-20) Prothrombin Time 10.7 SEC (9.30-11.50) Prothromb Time International Ratio 1.0 (0.9-1.1) Activated Partial Thromboplast Time 36 SEC (23-33) Sodium Level 142 MMOL/L (136-145) 145 MMOL/L (136-145) Potassium Level 3.5 MMOL/L (3.5-5.1) 3.6 MMOL/L (3.5-5.1) Chloride Level 105 MMOL/L (98-107) 107 MMOL/L (98-107) Carbon Dioxide Level 25 MMOL/L (21-32) 31 MMOL/L (21-32) Anion Gap 12 mmol/L (5-15) 7 mmol/L (5-15) Blood Urea Nitrogen 8 mg/dL (7-18) 10 mg/dL (7-18) Creatinine 1.1 MG/DL (0.55-1.30) 1.0 MG/DL (0.55-1.30) Estimat Glomerular Filtration Rate mL/min (>60) mL/min (>60) Glucose Level 87 MG/DL (74-106) 122 MG/DL (74-106) Calcium Level 9.6 MG/DL (8.5-10.1) 9.4 MG/DL (8.5-10.1) Total Bilirubin 0.5 MG/DL (0.2-1.0) 0.4 MG/DL (0.2-1.0) Aspartate Amino Transf (AST/SGOT) 59 U/L (15-37) 42 U/L (15-37) Alanine Aminotransferase (ALT/SGPT) 55 U/L (12-78) 45 U/L (12-78) Alkaline Phosphatase 146 U/L (46-116) 128 U/L (46-116) C-Reactive Protein, Quantitative 6.0 mg/dL (0.00-0.90) Total Protein 7.8 G/DL (6.4-8.2) 7.2 G/DL (6.4-8.2) Albumin 2.9 G/DL (3.4-5.0) 2.7 G/DL (3.4-5.0) Globulin 4.9 g/dL 4.5 g/dL Albumin/Globulin Ratio 0.6 (1.0-2.7) 0.6 (1.0-2.7) Height (Feet): 6 Height (Inches): 0.00 Weight (Pounds): 180 Objective Gen: ill appearing, chronically Pulm: wheezing mild noted b/l, NC+ CV: rrr, no mgr Abd: soft, nt, nd, NG+ Ext: no cce Ignacio Ponce MD May 18, 2019 15:56
[2019-05-18 16:00] VITALS: BP 118/67
--- NOTE | 2019-05-18 17:42 | Pulmonology Progress Note ---
Assessment/Plan Assessment/Plan Pulmonary Progress Note HPI Patient is a 69 year old male long-term patient with history of Chronic Obstructive Pulmonary Disease, Chronic Granulomatous Disease, Hypertension, Renal Myolipoma, history of seizures, dementia, encephalopathy, Diverticulosis, noncommunicative, admitted with respiratory distress, patient found to be hypoxic, congested, and more altered. No other history available. Recently discharged, had been treated for Pneumonia, Heel wound, noted to have high fever at [facility]. Also noted to have cough and increased congestion.Patient had prior history of dementia. History is markedly limited by patient's mental status. Awaiting PEG Allergies: PNEUMOCOCCAL VACCINE Past Medical History: Chronic Obstructive Pulmonary Disease, Chronic Granulomatous Disease, Hypertension, Diverticulosis, Renal Myolipoma, history of Seizures, history of Dementia, encephalopathy All Other Systems: limited - Not communicative Physical Exam Vital Signs Noted General Appearance: Wasted, Chronically Ill appearing Head: normocephalic, atraumatic Eyes: bilateral eye PERRL, bilateral eye EOMI ENT: uvula midline, dry mucus membranes Neck: supple, thyroid normal, supple/symm/no masses Respiratory: Bilateral rhonchi Cardiovascular: normal peripheral pulses, HS1, HS2, RRR, no edema, no gallop, no murmur, tachycardia Gastrointestinal: non tender, soft, no guarding, no rebound Musculoskeletal: normal inspection Neurologic: awake, chronically altered Skin: no rash, warm/dry Impression: Chronic obstructive pulmonary disease Healthcare-associated pneumonia Heel wounds Dyspnea, Hypoxia Dehydration Chronic Granulomatous Disease with two pleural based partially calcified areas Hypertension Diverticulosis Renal Myolipoma History of Seizures History of Dementia Chronic Encephalopathy Increased Calcium Plan - IV Antibiotics - PEG pending - HHN - O2 PRN - [employer] Medications - 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 Infectious infiltrates not excluded. Clinical correlation/follow-up recommended. CT Abdomen: Lung bases: patchy infiltrates CT Chest: 2 cm pleural-based masslike opacity containing multiple nodular calcifications andadjacent parenchymal linear density persists in the anterolateral periphery of thelateral segment right middle lobe, unchanged. Adjacent small nodular parenchymaldensities persist, unchanged. Small irregular pleural-based linear densities persist in the dependent portions of both lung bases, unchanged. No new pulmonary parenchymal abnormality demonstrated. No pleural disease is evident. Nodularcalcification in right hilum unchanged. Clustered calcified nodules in the subcarinal region of mediastinum unchanged. No new mediastinal or hilar enlarged lymph nodes. Heart remains normal in size. No pericardial abnormality. Centralmediastinal vasculature remains unremarkable in appearance. Subjective ROS Limited/Unobtainable: No Allergies: Coded Allergies: PNEUMOCOCCAL VACCINE (Unverified Allergy, Unknown, 10/07/18) Objective Last 24 Hour Vital Signs Date Time Temp Pulse Resp B/P (MAP) Pulse Ox O2 Delivery O2 Flow Rate FiO2 05/18/19 16:00 97.5 83 20 118/67 (84) 99 05/18/19 15:22 88 18 100 Nasal Cannula 2.0 85 18 99 05/18/19 12:00 82 05/18/19 12:00 98.1 82 18 115/61 (79) 97 05/18/19 10:55 89 18 100 Nasal Cannula 2.0 84 18 99 05/18/19 09:35 61 122/75 05/18/19 09:00 Nasal Cannula 2.0 05/18/19 08:00 95 05/18/19 08:00 97.9 81 20 125/71 (89) 98 05/18/19 07:38 89 18 100 Nasal Cannula 2.0 86 18 97 05/18/19 07:38 73 16 98 Nasal Cannula 2.0 28 05/18/19 07:38 98 Nasal Cannula 2.0 28 05/18/19 04:00 92 05/18/19 04:00 97.3 107 20 131/81 (98) 94 05/18/19 03:54 95 20 98 Nasal Cannula 2.0 28 05/18/19 03:38 91 18 96 Nasal Cannula 2.0 28 05/18/19 00:00 101 05/18/19 00:00 97.3 104 19 129/70 (89) 94 05/17/19 23:13 89 18 100 Nasal Cannula 2.0 28 84 18 97 05/17/19 21:00 Nasal Cannula 2.0 05/17/19 20:02 97 18 100 Nasal Cannula 2.0 28 97 18 98 05/17/19 20:02 98 Nasal Cannula 2.0 28 05/17/19 20:00 97.9 97 21 137/67 (90) 96 05/17/19 20:00 88 Intake and Output 05/17/19 05/18/19 19:00 07:00 Intake Total 440 ml 715 ml Balance 440 ml 715 ml Tube Feeding 440 ml 715 ml # Voids 2 Current Medications Medications (Trade) Dose Ordered Sig/Nidhi Route PRN Reason Start Time Stop Time Status Last Admin Dose Admin Acetaminophen (Tylenol) 650 mg Q6H PRN ORAL Mild Pain/Temp > 100.5 05/15/19 09:45 06/14/19 09:44 Acetylcysteine (Mucomyst) 200 mg Q4HRT N 05/15/19 11:00 06/14/19 10:59 05/18/19 15:21 Albuterol/ Ipratropium (Albuterol/ Ipratropium) 3 ml Q4HRT N 05/15/19 11:00 05/20/19 10:59 05/18/19 15:21 Amlodipine Besylate (Norvasc) 10 mg DAILY ORAL 05/16/19 09:00 06/15/19 08:59 05/18/19 09:35 Benztropine Mesylate (Cogentin) 0.5 mg TWICE A DAY ORAL 05/15/19 18:00 06/14/19 17:59 05/18/19 09:35 Dextrose/Sodium Chloride 1,000 ml @ 60 mls/hr [id number] IV 05/15/19 09:45 06/14/19 09:44 05/16/19 22:06 Donepezil HCl (Aricept) 5 mg QHS ORAL 05/15/19 21:00 06/14/19 20:59 05/17/19 21:47 Heparin Sodium (Porcine) (Heparin 5000 units/ml) 5,000 units EVERY 12 HOURS SUBQ 05/15/19 21:00 06/14/19 20:59 05/18/19 09:37 Levetiracetam (Keppra) 1,500 mg Q12HR ORAL 05/15/19 21:00 06/14/19 20:59 05/18/19 09:34 Mirtazapine (Remeron) 7.5 mg BEDTIME ORAL 05/15/19 21:00 06/14/19 20:59 05/17/19 21:47 Ondansetron HCl (Zofran) 4 mg Q8H PRN IVP Nausea & Vomiting 05/15/19 09:45 06/14/19 09:44 Piperacillin Sod/ Tazobactam Sod 3.375 gm/Sodium Chloride 110 ml @ 27.5 mls/hr Q8HR IVPB 05/15/19 14:00 05/22/19 13:59 05/18/19 15:00 Quetiapine Fumarate (SEROqueL) 100 mg TWICE A DAY ORAL 05/15/19 18:00 06/14/19 17:59 05/18/19 09:34 Porfirio Daniel MD May 18, 2019 17:42
[2019-05-18 20:00] VITALS: BP 137/57
--- NOTE | 2019-05-18 20:32 | General Progress Note ---
Assessment/Plan Problem List: (1) PNA (pneumonia) ICD Codes: J18.9 - Pneumonia, unspecified organism SNOMED: 931426313 (2) Fever ICD Codes: R50.9 - Fever, unspecified SNOMED: 877777066 (3) Protein-calorie malnutrition, severe ICD Codes: E43 - Unspecified severe protein-calorie malnutrition SNOMED: 748213820 (4) Dysphagia ICD Codes: R13.10 - Dysphagia, unspecified SNOMED: 16208800, 780393804 (5) Decubitus skin ulcer ICD Codes: L89.90 - Pressure ulcer of unspecified site, unspecified stage SNOMED: 940154164 (6) Schizophrenia ICD Codes: F20.9 - Schizophrenia, unspecified SNOMED: 15739476 (7) Acute febrile illness ICD Codes: R50.9 - Fever, unspecified SNOMED: 895429738 Status: progressing Assessment/Plan: sepsis pna abx per id not hypoxic afebrile Subjective ROS Limited/Unobtainable: Yes Allergies: Coded Allergies: PNEUMOCOCCAL VACCINE (Unverified Allergy, Unknown, 10/07/18) Objective Last 24 Hour Vital Signs Date Time Temp Pulse Resp B/P (MAP) Pulse Ox O2 Delivery O2 Flow Rate FiO2 05/18/19 19:43 98 Nasal Cannula 2.0 28 05/18/19 19:42 78 18 98 Nasal Cannula 2.0 28 05/18/19 19:37 81 18 100 Nasal Cannula 2.0 28 78 18 98 05/18/19 16:00 80 05/18/19 16:00 97.5 83 20 118/67 (84) 99 05/18/19 15:22 88 18 100 Nasal Cannula 2.0 28 85 18 99 05/18/19 12:00 82 05/18/19 12:00 98.1 82 18 115/61 (79) 97 05/18/19 10:55 89 18 100 Nasal Cannula 2.0 28 84 18 99 05/18/19 09:35 61 122/75 05/18/19 09:00 Nasal Cannula 2.0 05/18/19 08:00 95 05/18/19 08:00 97.9 81 20 125/71 (89) 98 05/18/19 07:38 89 18 100 Nasal Cannula 2.0 28 86 18 97 05/18/19 07:38 73 16 98 Nasal Cannula 2.0 28 05/18/19 07:38 98 Nasal Cannula 2.0 28 05/18/19 04:00 92 05/18/19 04:00 97.3 107 20 131/81 (98) 94 05/18/19 03:54 95 20 98 Nasal Cannula 2.0 28 05/18/19 03:38 91 18 96 Nasal Cannula 2.0 28 05/18/19 00:00 101 05/18/19 00:00 97.3 104 19 129/70 (89) 94 05/17/19 23:13 89 18 100 Nasal Cannula 2.0 84 18 97 05/17/19 21:00 Nasal Cannula 2.0 Intake and Output 05/17/19 05/18/19 19:00 07:00 Intake Total 440 ml 715 ml Balance 440 ml 715 ml Tube Feeding 440 ml 715 ml # Voids 2 Height (Feet): 6 Height (Inches): 0.00 Weight (Pounds): 180 Cardiovascular: normal rate Respiratory/Chest: lungs clear Abdomen: soft Konrad Soares MD May 18, 2019 20:32
[2019-05-18] MEDS: Donepezil 5mg Tab ORAL SCH (22:13)
--- NOTE | 2019-05-18 22:13 | Cardiology Progress Note ---
Assessment/Plan Assessment/Plan 1. Dyspnea, likely due to underlying bilateral healthcare-associated pneumonia. Continue IV antibiotics, 2D echo reveals normal LV systolic and diastolic function, LVEF at 65% with normal intracardiac filling pressure. 2. History of chronic obstructive pulmonary disease. 3. History of encephalopathy, nonverbal status. 4. History of seizure disorder, on Keppra. 5. Sinus tachycardia, resolved, continue hydration. 6. History of hypertension, continue amlodipine Subjective Subjective Sinus rhythm at rate of 78. Objective Last 24 Hour Vital Signs Date Time Temp Pulse Resp B/P (MAP) Pulse Ox O2 Delivery O2 Flow Rate FiO2 05/18/19 19:43 98 Nasal Cannula 2.0 28 05/18/19 19:42 78 18 98 Nasal Cannula 2.0 28 05/18/19 19:37 81 18 100 Nasal Cannula 2.0 28 78 18 98 05/18/19 16:00 80 05/18/19 16:00 97.5 83 20 118/67 (84) 99 05/18/19 15:22 88 18 100 Nasal Cannula 2.0 85 18 99 05/18/19 12:00 82 05/18/19 12:00 98.1 82 18 115/61 (79) 97 05/18/19 10:55 89 18 100 Nasal Cannula 2.0 84 18 99 05/18/19 09:35 61 122/75 05/18/19 09:00 Nasal Cannula 2.0 05/18/19 08:00 95 05/18/19 08:00 97.9 81 20 125/71 (89) 98 05/18/19 07:38 89 18 100 Nasal Cannula 2.0 86 18 97 05/18/19 07:38 73 16 98 Nasal Cannula 2.0 05/18/19 07:38 98 Nasal Cannula 2.0 05/18/19 04:00 92 05/18/19 04:00 97.3 107 20 131/81 (98) 94 05/18/19 03:54 95 20 98 Nasal Cannula 2.0 05/18/19 03:38 91 18 96 Nasal Cannula 2.0 05/18/19 00:00 101 05/18/19 00:00 97.3 104 19 129/70 (89) 94 05/17/19 23:13 89 18 100 Nasal Cannula 2.0 84 18 97 Intake and Output 05/17/19 05/18/19 18:59 06:59 Intake Total 540 ml 660 ml Balance 540 ml 660 ml Free Water 100 ml Tube Feeding 440 ml 660 ml # Voids 3 2D Echo: LVEF 65%, Mild LVH, RVSP 16 mmHg, Normal LV Diastolic fxn. Objective HEENT: Atraumatic and normocephalic. Anicteric sclerae. Pupils are equal, round, and reactive to light and accommodation. Extraocular muscles intact. NECK: JVP less than 5 cm. No carotid bruit. Carotid upstroke is 2+ bilaterally. CARDIOVASCULAR: Normal S1, S2. Regular rate and rhythm. No murmurs, gallops, or rubs. PMI is at fourth intercostal space in the midclavicular line. LUNGS: Diminished breath sounds in both bases with associated crackles. ABDOMEN: Soft, nontender, and nondistended. No hepatosplenomegaly. Positive bowel sounds. EXTREMITIES: No evidence of edema, clubbing, or cyanosis. Sajan Altman MD May 18, 2019 22:13
[2019-05-19] VITALS: BP 130/75
[2019-05-19] MEDS: Albuterol/Ipratropium 3ml neb HHN SCH ×6 (02:46→23:31)
[2019-05-19] MEDS: Acetylcysteine 20% Soln 4ml HHN SCH ×6 (02:46→23:33)
[2019-05-19 04:00] VITALS: BP 132/66
[2019-05-19] MEDS: Piperacillin/Tazobactam 3.375 GM in NS 110 ML IVPB SCH ×3 (05:44→22:07)
[2019-05-19 08:00] VITALS: BP 140/68
[2019-05-19] MEDS: Benztropine 1mg tab ORAL SCH ×2 (09:00→17:54)
[2019-05-19] MEDS: Heparin 5000 units/ml inj SUBQ SCH ×2 (09:27→21:00)
[2019-05-19 12:00] VITALS: BP 111/62
--- NOTE | 2019-05-19 12:56 | Infectious Diseases Prog Note ---
Assessment/Plan Assessment/Plan A: Pneumonia secodary to aspiration Atelectasis hypoxemia, hypertension, dementia. Hypercalcemia Fecal impaction P; Continue Zosyn Agree with PEG placement Subjective ROS Limited/Unobtainable: Yes Constitutional: Denies: fever Allergies: Coded Allergies: PNEUMOCOCCAL VACCINE (Unverified Allergy, Unknown, 10/07/18) Objective Vital Signs Last 24 Hour Vital Signs Date Time Temp Pulse Resp B/P (MAP) Pulse Ox O2 Delivery O2 Flow Rate FiO2 05/19/19 12:00 77 05/19/19 12:00 97.5 79 18 111/62 (78) 96 05/19/19 11:01 80 18 100 Nasal Cannula 2.0 28 74 18 98 05/19/19 09:00 Nasal Cannula 2.0 05/19/19 08:00 98.6 78 17 140/68 (92) 97 05/19/19 08:00 86 05/19/19 06:55 76 18 99 Nasal Cannula 2.0 28 84 18 97 05/19/19 06:54 97 Nasal Cannula 2.0 28 05/19/19 06:53 84 18 97 Nasal Cannula 2.0 28 05/19/19 04:00 91 05/19/19 04:00 97.7 95 19 132/66 (88) 97 05/19/19 02:46 77 18 100 Nasal Cannula 2.0 28 72 18 98 05/19/19 00:00 98.2 99 19 130/75 (93) 96 05/19/19 00:00 95 05/18/19 23:41 77 18 100 Nasal Cannula 2.0 75 18 97 05/18/19 21:05 Nasal Cannula 2.0 05/18/19 21:00 Nasal Cannula 2.0 05/18/19 20:00 101 05/18/19 20:00 97.9 101 19 137/57 (83) 97 05/18/19 19:43 98 Nasal Cannula 2.0 28 05/18/19 19:42 78 18 98 Nasal Cannula 2.0 28 05/18/19 19:37 81 18 100 Nasal Cannula 2.0 28 78 18 98 05/18/19 16:00 80 05/18/19 16:00 97.5 83 20 118/67 (84) 99 05/18/19 15:22 88 18 100 Nasal Cannula 2.0 28 85 18 99 Height (Feet): 6 Height (Inches): 0.00 Weight (Pounds): 180 General Appearance: no acute distress HEENT: mucous membranes moist Respiratory/Chest: other - coarse sounds, oxygen by nasal cannula Cardiovascular: normal rate Abdomen: soft, non tender Extremities: no edema Neurologic/Psychiatric: disoriented, aphasia, other - opens eyes Current Medications Medications (Trade) Dose Ordered Sig/Nidhi Route PRN Reason Start Time Stop Time Status Last Admin Dose Admin Acetaminophen (Tylenol) 650 mg Q6H PRN ORAL Mild Pain/Temp > 100.5 05/15/19 09:45 06/14/19 09:44 Acetylcysteine (Mucomyst) 200 mg Q4HRT N 05/15/19 11:00 06/14/19 10:59 05/19/19 10:59 Albuterol/ Ipratropium (Albuterol/ Ipratropium) 3 ml Q4HRT [facility] 05/15/19 11:00 05/20/19 10:59 05/19/19 10:59 Amlodipine Besylate (Norvasc) 10 mg DAILY ORAL 05/16/19 09:00 06/15/19 08:59 05/18/19 09:35 Benztropine Mesylate (Cogentin) 0.5 mg TWICE A DAY ORAL 05/15/19 18:00 06/14/19 17:59 05/18/19 18:35 Dextrose/Sodium Chloride 1,000 ml @ 60 mls/hr [id number] IV 05/15/19 09:45 06/14/19 09:44 05/18/19 22:12 Donepezil HCl (Aricept) 5 mg QHS ORAL 05/15/19 21:00 06/14/19 20:59 05/18/19 22:13 Heparin Sodium (Porcine) (Heparin 5000 units/ml) 5,000 units EVERY 12 HOURS SUBQ 05/15/19 21:00 06/14/19 20:59 05/19/19 09:27 Levetiracetam (Keppra) 1,500 mg Q12HR ORAL 05/15/19 21:00 06/14/19 20:59 05/18/19 22:13 Mirtazapine (Remeron) 7.5 mg BEDTIME ORAL 05/19/19 21:00 06/14/19 20:59 Ondansetron HCl (Zofran) 4 mg Q8H PRN IVP Nausea & Vomiting 05/15/19 09:45 06/14/19 09:44 Piperacillin Sod/ Tazobactam Sod 3.375 gm/Sodium Chloride 110 ml @ 27.5 mls/hr Q8HR IVPB 05/15/19 14:00 05/22/19 13:59 05/19/19 05:44 Quetiapine Fumarate (SEROqueL) 100 mg TWICE A DAY ORAL 05/15/19 18:00 06/14/19 17:59 05/18/19 18:35 Curtis Farah MD May 19, 2019 12:56
[2019-05-19] MEDS: D5 1/2NS 1,000 ML IV SCH (13:45)
--- NOTE | 2019-05-19 14:22 | Hematology/Onc Progress Note ---
Assessment/Plan Assessment/Plan # Hypercalcemia r/o malignancy, r/o myeloma, elevated on admission, may be 2/2 dehydration --> Ca 10.2-->9.5->10.7, pth is wnl, spep is also wnl as is upep --> on iv fluids as per pcp --> renal eval prn --> pth on prior admission was 42 # Multiple lung nodules -- in 2017 2 cm pleural-based masslike opacity containing multiple nodular calcifications andadjacent parenchymal linear density persists in the anterolateral periphery of thelateral segment right middle lobe, unchanged. Adjacent small nodular parenchymaldensities persist, unchanged. --> pulm aware --> consider ct chest once better # Leukocytosis on admission --> may be due to infection --> per id on vanc/zosyn--> zosyndox/vanc-->zosyn --> wbc 14-->12-->10-->12 --> smear is noted --> urine cx negative # Coagulopathy with elevated ptt --> obtain mixing study as needed --> meds have been reviewed # Head injury, acute --> imaging as per neuro --> ct brain reviewed and shows small vessel disease --> seizure precautions # Altered mental status --> as per renal # Chondrocalcinosis at the wrist --> no fractures noted on imaging of hand # HTN - sbp goal less than 140 --> benaz to continue # Dvt ppx heparin sq The timing of this note does not necessarily reflect the time of the patient was seen. Greatly appreciate consultation! Subjective Constitutional: Denies: no symptoms, chills, fever, malaise, weakness, other HEENT: Denies: no symptoms, eye pain, blurred vision, tearing, double vision, ear pain, ear discharge, nose pain, nose congestion, throat pain, throat swelling, mouth pain, mouth swelling, other Cardiovascular: Denies: no symptoms, chest pain, edema, irregular heart rate, lightheadedness, palpitations, syncope, other Respiratory: Denies: no symptoms, cough, shortness of breath, SOB with excertion, SOB at rest, sputum, wheezing, other Genitourinary: Denies: no symptoms, burning, discharge, frequency, flank pain, hematuria, incontinence, pain, urgency, other Neurologic/Psychiatric: Denies: no symptoms, anxiety, depressed, emotional problems, headache, numbness, paresthesia, pre-existing deficit, seizure, tingling, tremors, weakness, other Endocrine: Denies: no symptoms, excessive sweating, flushing, intolerance to cold, intolerance to heat, increased hunger, increased thirst, increased urine, unexplained weight gain, unexplained weight loss, other Allergies: Coded Allergies: PNEUMOCOCCAL VACCINE (Unverified Allergy, Unknown, 10/07/18) Subjective 05/15 noncommunicative, was here yesterday and readmitted with ams and copd exacerbation, seen by Fredy 05/16: ngt in place, placed yesterday, is on fluids, sleepy this am 05/18: no acute events, no labs today, urine cx negative 05/19: no major bleeding reported, no acute events wbc is 13 Objective Objective Current Medications Medications (Trade) Dose Ordered Sig/Nidhi Route PRN Reason Start Time Stop Time Status Last Admin Dose Admin Acetaminophen (Tylenol) 650 mg Q6H PRN ORAL Mild Pain/Temp > 100.5 05/15/19 09:45 06/14/19 09:44 Acetylcysteine (Mucomyst) 200 mg Q4HRT [facility] 05/15/19 11:00 06/14/19 10:59 05/19/19 10:59 Albuterol/ Ipratropium (Albuterol/ Ipratropium) 3 ml Q4HRT [facility] 05/15/19 11:00 05/20/19 10:59 05/19/19 10:59 Amlodipine Besylate (Norvasc) 10 mg DAILY ORAL 05/16/19 09:00 06/15/19 08:59 05/18/19 09:35 Benztropine Mesylate (Cogentin) 0.5 mg TWICE A DAY ORAL 05/15/19 18:00 06/14/19 17:59 05/18/19 18:35 Dextrose/Sodium Chloride 1,000 ml @ 60 mls/hr [id number] IV 05/15/19 09:45 06/14/19 09:44 05/18/19 22:12 Donepezil HCl (Aricept) 5 mg QHS ORAL 05/15/19 21:00 06/14/19 20:59 05/18/19 22:13 Heparin Sodium (Porcine) (Heparin 5000 units/ml) 5,000 units EVERY 12 HOURS SUBQ 05/15/19 21:00 06/14/19 20:59 05/19/19 09:27 Levetiracetam (Keppra) 1,500 mg Q12HR ORAL 05/15/19 21:00 06/14/19 20:59 05/18/19 22:13 Mirtazapine (Remeron) 7.5 mg BEDTIME ORAL 05/19/19 21:00 06/14/19 20:59 Ondansetron HCl (Zofran) 4 mg Q8H PRN IVP Nausea & Vomiting 05/15/19 09:45 06/14/19 09:44 Piperacillin Sod/ Tazobactam Sod 3.375 gm/Sodium Chloride 110 ml @ 27.5 mls/hr Q8HR IVPB 05/15/19 14:00 05/22/19 13:59 05/19/19 05:44 Quetiapine Fumarate (SEROqueL) 100 mg TWICE A DAY ORAL 05/15/19 18:00 06/14/19 17:59 05/18/19 18:35 Last 24 Hour Vital Signs Date Time Temp Pulse Resp B/P (MAP) Pulse Ox O2 Delivery O2 Flow Rate FiO2 05/19/19 12:00 77 05/19/19 12:00 97.5 79 18 111/62 (78) 96 05/19/19 11:01 80 18 100 Nasal Cannula 2.0 28 74 18 98 05/19/19 09:00 Nasal Cannula 2.0 05/19/19 08:00 98.6 78 17 140/68 (92) 97 05/19/19 08:00 86 05/19/19 06:55 76 18 99 Nasal Cannula 2.0 28 84 18 97 05/19/19 06:54 97 Nasal Cannula 2.0 28 05/19/19 06:53 84 18 97 Nasal Cannula 2.0 28 05/19/19 04:00 91 05/19/19 04:00 97.7 95 19 132/66 (88) 97 05/19/19 02:46 77 18 100 Nasal Cannula 2.0 28 72 18 98 05/19/19 00:00 98.2 99 19 130/75 (93) 96 05/19/19 00:00 95 05/18/19 23:41 77 18 100 Nasal Cannula 2.0 28 75 18 97 05/18/19 21:05 Nasal Cannula 2.0 05/18/19 21:00 Nasal Cannula 2.0 05/18/19 20:00 101 05/18/19 20:00 97.9 101 19 137/57 (83) 97 05/18/19 19:43 98 Nasal Cannula 2.0 28 05/18/19 19:42 78 18 98 Nasal Cannula 2.0 28 05/18/19 19:37 81 18 100 Nasal Cannula 2.0 28 78 18 98 05/18/19 16:00 80 05/18/19 16:00 97.5 83 20 118/67 (84) 99 05/18/19 15:22 88 18 100 Nasal Cannula 2.0 85 18 99 05/18/19 12:00 82 05/18/19 12:00 98.1 82 18 115/61 (79) 97 05/18/19 10:55 89 18 100 Nasal Cannula 2.0 84 18 99 05/18/19 09:35 61 122/75 05/18/19 09:00 Nasal Cannula 2.0 05/18/19 08:00 95 05/18/19 08:00 97.9 81 20 125/71 (89) 98 05/18/19 07:38 89 18 100 Nasal Cannula 2.0 28 86 18 97 05/18/19 07:38 73 16 98 Nasal Cannula 2.0 28 05/18/19 07:38 98 Nasal Cannula 2.0 28 05/18/19 04:00 92 05/18/19 04:00 97.3 107 20 131/81 (98) 94 05/18/19 03:54 95 20 98 Nasal Cannula 2.0 28 05/18/19 03:38 91 18 96 Nasal Cannula 2.0 28 05/18/19 00:00 101 05/18/19 00:00 97.3 104 19 129/70 (89) 94 05/17/19 23:13 89 18 100 Nasal Cannula 2.0 28 84 18 97 05/17/19 21:00 Nasal Cannula 2.0 05/17/19 20:02 97 18 100 Nasal Cannula 2.0 28 97 18 98 05/17/19 20:02 98 Nasal Cannula 2.0 28 05/17/19 20:00 97.9 97 21 137/67 (90) 96 05/17/19 20:00 88 05/17/19 16:00 98.1 94 20 114/61 (78) 98 05/17/19 16:00 83 05/17/19 15:07 96 16 100 Nasal Cannula 2.0 28 94 16 98 Intake and Output 05/18/19 05/19/19 19:00 07:00 Intake Total 660 ml Output Total 400 ml 400 ml Balance 260 ml -400 ml Tube Feeding 660 ml Output Urine Total 400 ml 400 ml # Voids 2 1 # Bowel Movements 1 Labs Test 05/17/19 07:15 05/17/19 09:50 White Blood Count 13.4 K/UL (4.8-10.8) Red Blood Count 4.64 M/UL (4.70-6.10) Hemoglobin 14.8 G/DL (14.2-18.0) Hematocrit 44.6 % (42.0-52.0) Mean Corpuscular Volume 96 FL (80-99) Mean Corpuscular Hemoglobin 31.9 PG (27.0-31.0) Mean Corpuscular Hemoglobin Concent 33.2 G/DL (32.0-36.0) Red Cell Distribution Width 13.3 % (11.6-14.8) Platelet Count 288 K/UL (150-450) Mean Platelet Volume 5.3 FL (6.5-10.1) Neutrophils (%) (Auto) 69.4 % (45.0-75.0) Lymphocytes (%) (Auto) 16.6 % (20.0-45.0) Monocytes (%) (Auto) 10.4 % (1.0-10.0) Eosinophils (%) (Auto) 2.8 % (0.0-3.0) Basophils (%) (Auto) 0.8 % (0.0-2.0) Sodium Level 145 MMOL/L (136-145) Potassium Level 3.6 MMOL/L (3.5-5.1) Chloride Level 107 MMOL/L (98-107) Carbon Dioxide Level 31 MMOL/L (21-32) Anion Gap 7 mmol/L (5-15) Blood Urea Nitrogen 10 mg/dL (7-18) Creatinine 1.0 MG/DL (0.55-1.30) Estimat Glomerular Filtration Rate mL/min (>60) Glucose Level 122 MG/DL (74-106) Calcium Level 9.4 MG/DL (8.5-10.1) Total Bilirubin 0.4 MG/DL (0.2-1.0) Aspartate Amino Transf (AST/SGOT) 42 U/L (15-37) Alanine Aminotransferase (ALT/SGPT) 45 U/L (12-78) Alkaline Phosphatase 128 U/L (46-116) Total Protein 7.2 G/DL (6.4-8.2) Albumin 2.7 G/DL (3.4-5.0) Globulin 4.5 g/dL Albumin/Globulin Ratio 0.6 (1.0-2.7) Height (Feet): 6 Height (Inches): 0.00 Weight (Pounds): 180 Objective Gen: ill appearing, chronically Pulm: wheezing mild noted b/l, NC+ CV: rrr, no mgr Abd: soft, nt, nd, NG+ Ext: no cce Ignacio Ponce MD May 19, 2019 14:22
--- NOTE | 2019-05-19 15:46 | Surgery Progress Note ---
Surgery Progress Note Subjective Additional Comments lots of secretions today asked RT to cont with frequent suctioning no n/v/f/c Objective Last 24 Hour Vital Signs Date Time Temp Pulse Resp B/P (MAP) Pulse Ox O2 Delivery O2 Flow Rate FiO2 05/19/19 15:01 82 18 100 Nasal Cannula 2.0 28 76 18 97 05/19/19 12:00 77 05/19/19 12:00 97.5 79 18 111/62 (78) 96 05/19/19 11:01 80 18 100 Nasal Cannula 2.0 28 74 18 98 05/19/19 09:00 Nasal Cannula 2.0 05/19/19 08:00 98.6 78 17 140/68 (92) 97 05/19/19 08:00 86 05/19/19 06:55 76 18 99 Nasal Cannula 2.0 28 84 18 97 05/19/19 06:54 97 Nasal Cannula 2.0 28 05/19/19 06:53 84 18 97 Nasal Cannula 2.0 28 05/19/19 04:00 91 05/19/19 04:00 97.7 95 19 132/66 (88) 97 05/19/19 02:46 77 18 100 Nasal Cannula 2.0 28 72 18 98 05/19/19 00:00 98.2 99 19 130/75 (93) 96 05/19/19 00:00 95 05/18/19 23:41 77 18 100 Nasal Cannula 2.0 28 75 18 97 05/18/19 21:05 Nasal Cannula 2.0 05/18/19 21:00 Nasal Cannula 2.0 05/18/19 20:00 101 05/18/19 20:00 97.9 101 19 137/57 (83) 97 05/18/19 19:43 98 Nasal Cannula 2.0 28 05/18/19 19:42 78 18 98 Nasal Cannula 2.0 28 05/18/19 19:37 81 18 100 Nasal Cannula 2.0 28 78 18 98 05/18/19 16:00 80 05/18/19 16:00 97.5 83 20 118/67 (84) 99 I&O Intake and Output 05/18/19 05/19/19 19:00 07:00 Intake Total 660 ml Output Total 400 ml 400 ml Balance 260 ml -400 ml Tube Feeding 660 ml Output Urine Total 400 ml 400 ml # Voids 2 1 # Bowel Movements 1 Dressing: other Wound: other Drains: other Cardiovascular: RSR Respiratory: decreased breath sounds Abdomen: soft, present bowel sounds Extremities: no cyanosis, other Plan Problems: (1) Protein-calorie malnutrition, severe Assessment & Plan: (1) Decubitus skin ulcer Assessment & Plan: Pt presented on admission with DTPI sacrum with surrounding non-blanching erythema over historical scar from previous wound. An area of induration noted to sacrococcygeal area measuring (L)2.5cm x (W)2cm. Non-blanching erythema R heel with an area of fluctuance and maroon at lateral aspect of heel(L)3cm x (W)2.5cm . Pt exhibited agitation when affected area minimally palpated. L heel is boggy with non-blanching erythema. Shaft and penile head including scrotum are erythematous. Tx.Plan: Apply Moisture Barrier Paste to sacrum. Cover with Optifoam drsg. Change every 3 days and prn. Apply Triad Paste to penis scrotum and groin areas with each incontinence care. Apply Cavilon Skin Barrier to both heel. Cover each heel with Optifoam drsg. Change every 7 days and prn. Reposition at least every 2hours or as tolerated. Off-load heels with pillow. APM/CHRISTOPHER Mattress overlay. (2) Leukocytosis likely related to pulm infiltrate wounds do not clinically look infected abx for pna pulm input abx as per ID (3) xxx (4) Protein-calorie malnutrition, severe Assessment & Plan: PEG? polst reviewed. (5) Lung mass Assessment & Plan: 2 cm pleural-based masslike opacity containing multiple nodular calcifications andadjacent parenchymal linear density persists in the anterolateral periphery of thelateral segment right middle lobe, unchanged. Adjacent small nodular parenchymaldensities persist, unchanged. Small irregular pleural-based linear densities persist in the dependent portions of both lung bases, unchanged. No new pulmonary parenchymal abnormality demonstrated. No pleural disease is evident. Nodularcalcification in right hilum unchanged. Clustered calcified nodules in the subcarinal region of mediastinum unchanged. No new mediastinal or hilar enlarged lymph nodes. Heart remains normal in size. No pericardial abnormality. Centralmediastinal vasculature remains unremarkable in appearance. noted prior in 2017. no path available cxr noted Rectal distention by feces, could indicate rectal fecal impaction Colonic diverticulosis. No evidence of diverticulitis Ectatic common bile duct. Probably on the basis of senescent changes given active evidence of downstream obstructing lesion, but occult downstream obstructive process not completely excludable. Correlate with liver function tests Basilar pulmonary consolidation and atelectasis. Pneumonia possible. Correlate with clinical findings Satisfactory position of nasogastric tube Right hip prosthesis bowel care enema PEG? Gabino Little May 19, 2019 15:46
[2019-05-19 16:00] VITALS: BP 133/76
--- NOTE | 2019-05-19 17:45 | Diagnostic Imaging Report ---
Indication: Status post nasogastric tube placement Technique: Supine view of the upper abdomen Comparison: 05/15/2019 Findings: There is a nasogastric tube in place, tip coiled in the gastric fundus, proximal port beyond the expected level of the gastroesophageal junction. Bowel gas pattern is unremarkable. There are degenerative spondylosis changes Small amount retained contrast from an earlier CT scan is seen in the left colon. There is right hip hemiarthroplasty prosthesis Impression: Satisfactory nasogastric intubation This agrees with the preliminary interpretation provided overnight by [facility] teleradiology service.
[2019-05-19 20:00] VITALS: BP 150/77
--- NOTE | 2019-05-19 20:27 | Cardiology Progress Note ---
Assessment/Plan Assessment/Plan 1. Dyspnea, likely due to underlying bilateral healthcare-associated pneumonia. Continue IV antibiotics, normal LVEF at 65% with normal intracardiac filling pressure. 2. History of chronic obstructive pulmonary disease. 3. History of encephalopathy, nonverbal status. 4. History of seizure disorder, on Keppra. 5. Sinus tachycardia, resolved, continue hydration. 6. History of hypertension, continue amlodipine Subjective Subjective Sinus rhythm at rate of 81. Objective Last 24 Hour Vital Signs Date Time Temp Pulse Resp B/P (MAP) Pulse Ox O2 Delivery O2 Flow Rate FiO2 05/19/19 19:50 81 18 99 Nasal Cannula 2.0 28 05/19/19 19:50 82 18 100 Nasal Cannula 2.0 28 81 18 100 05/19/19 19:50 99 Nasal Cannula 2.0 28 05/19/19 16:00 91 05/19/19 16:00 98.0 72 18 133/76 (95) 97 05/19/19 15:01 82 18 100 Nasal Cannula 2.0 28 76 18 97 05/19/19 12:00 77 05/19/19 12:00 97.5 79 18 111/62 (78) 96 05/19/19 11:01 80 18 100 Nasal Cannula 2.0 28 74 18 98 05/19/19 09:00 Nasal Cannula 2.0 05/19/19 08:00 98.6 78 17 140/68 (92) 97 05/19/19 08:00 86 05/19/19 06:55 76 18 99 Nasal Cannula 2.0 28 84 18 97 05/19/19 06:54 97 Nasal Cannula 2.0 05/19/19 06:53 84 18 97 Nasal Cannula 2.0 28 05/19/19 04:00 91 05/19/19 04:00 97.7 95 19 132/66 (88) 97 05/19/19 02:46 77 18 100 Nasal Cannula 2.0 28 72 18 98 05/19/19 00:00 98.2 99 19 130/75 (93) 96 05/19/19 00:00 95 05/18/19 23:41 77 18 100 Nasal Cannula 2.0 28 75 18 97 05/18/19 21:05 Nasal Cannula 2.0 05/18/19 21:00 Nasal Cannula 2.0 Intake and Output 05/18/19 05/19/19 19:00 07:00 Intake Total 660 ml 27.5 ml Output Total 400 ml 400 ml Balance 260 ml -372.5 ml IV Total 27.5 ml Tube Feeding 660 ml Output Urine Total 400 ml 400 ml # Voids 2 1 # Bowel Movements 1 2D Echo: LVEF 65%, Mild LVH, RVSP 16 mmHg, Normal LV Diastolic fxn. Objective HEENT: Atraumatic and normocephalic. Anicteric sclerae. Pupils are equal, round, and reactive to light and accommodation. Extraocular muscles intact. NECK: JVP less than 5 cm. No carotid bruit. Carotid upstroke is 2+ bilaterally. CARDIOVASCULAR: Normal S1, S2. Regular rate and rhythm. No murmurs, gallops, or rubs. PMI is at fourth intercostal space in the midclavicular line. LUNGS: Diminished breath sounds in both bases with associated crackles. ABDOMEN: Soft, nontender, and nondistended. No hepatosplenomegaly. Positive bowel sounds. EXTREMITIES: No evidence of edema, clubbing, or cyanosis. Sajan Altman MD May 19, 2019 20:27
--- NOTE | 2019-05-19 20:38 | General Progress Note ---
Assessment/Plan Problem List: (1) PNA (pneumonia) ICD Codes: J18.9 - Pneumonia, unspecified organism SNOMED: 272719542 (2) Fever ICD Codes: R50.9 - Fever, unspecified SNOMED: 586219124 (3) Protein-calorie malnutrition, severe ICD Codes: E43 - Unspecified severe protein-calorie malnutrition SNOMED: 114701437 (4) Dysphagia ICD Codes: R13.10 - Dysphagia, unspecified SNOMED: 41368041, 612086241 (5) Decubitus skin ulcer ICD Codes: L89.90 - Pressure ulcer of unspecified site, unspecified stage SNOMED: 664972891 (6) Schizophrenia ICD Codes: F20.9 - Schizophrenia, unspecified SNOMED: 56671017 (7) Acute febrile illness ICD Codes: R50.9 - Fever, unspecified SNOMED: 623746872 Status: progressing Assessment/Plan: sepsis pna abx per id not hypoxic afebrile per gi needs peg removes ng tube malnutrition asa pna Subjective ROS Limited/Unobtainable: Yes Allergies: Coded Allergies: PNEUMOCOCCAL VACCINE (Unverified Allergy, Unknown, 10/07/18) Objective Last 24 Hour Vital Signs Date Time Temp Pulse Resp B/P (MAP) Pulse Ox O2 Delivery O2 Flow Rate FiO2 05/19/19 19:50 81 18 99 Nasal Cannula 2.0 28 05/19/19 19:50 82 18 100 Nasal Cannula 2.0 28 81 18 100 05/19/19 19:50 99 Nasal Cannula 2.0 28 05/19/19 16:00 91 05/19/19 16:00 98.0 72 18 133/76 (95) 97 05/19/19 15:01 82 18 100 Nasal Cannula 2.0 28 76 18 97 05/19/19 12:00 77 05/19/19 12:00 97.5 79 18 111/62 (78) 96 05/19/19 11:01 80 18 100 Nasal Cannula 2.0 28 74 18 98 05/19/19 09:00 Nasal Cannula 2.0 05/19/19 08:00 98.6 78 17 140/68 (92) 97 05/19/19 08:00 86 05/19/19 06:55 76 18 99 Nasal Cannula 2.0 28 84 18 97 05/19/19 06:54 97 Nasal Cannula 2.0 28 05/19/19 06:53 84 18 97 Nasal Cannula 2.0 28 05/19/19 04:00 91 05/19/19 04:00 97.7 95 19 132/66 (88) 97 05/19/19 02:46 77 18 100 Nasal Cannula 2.0 28 72 18 98 05/19/19 00:00 98.2 99 19 130/75 (93) 96 05/19/19 00:00 95 05/18/19 23:41 77 18 100 Nasal Cannula 2.0 75 18 97 05/18/19 21:05 Nasal Cannula 2.0 05/18/19 21:00 Nasal Cannula 2.0 Intake and Output 05/18/19 05/19/19 19:00 07:00 Intake Total 660 ml 27.5 ml Output Total 400 ml 400 ml Balance 260 ml -372.5 ml IV Total 27.5 ml Tube Feeding 660 ml Output Urine Total 400 ml 400 ml # Voids 2 1 # Bowel Movements 1 Height (Feet): 6 Height (Inches): 0.00 Weight (Pounds): 180 Cardiovascular: normal rate Respiratory/Chest: lungs clear Konrad Soares MD May 19, 2019 20:38
[2019-05-19] MEDS: Donepezil 5mg Tab ORAL SCH (21:00)
--- NOTE | 2019-05-19 22:30 | General Progress Note ---
Assessment/Plan Status: progressing Assessment/Plan: GI: Plan Problems: (1) Dysphagia (2) PEG (percutaneous endoscopic gastrostomy) adjustment/replacement/removal (3) PNA (pneumonia) (4) Protein-calorie malnutrition, severe (5) Dehydration Plan maintain patient NPO given the possibility of possible silent aspiration patient pulled out NGT, may not be able to replace easily given agitation scheduled for PEG Wed am abx per ID Subjective Allergies: Coded Allergies: PNEUMOCOCCAL VACCINE (Unverified Allergy, Unknown, 10/07/18) Subjective confused no new c/o d/w DTR re indications for PEG all answered DTR requested to proceed Objective Last 24 Hour Vital Signs Date Time Temp Pulse Resp B/P (MAP) Pulse Ox O2 Delivery O2 Flow Rate FiO2 05/19/19 19:50 81 18 99 Nasal Cannula 2.0 28 05/19/19 19:50 82 18 100 Nasal Cannula 2.0 28 81 18 100 05/19/19 19:50 99 Nasal Cannula 2.0 28 05/19/19 16:00 91 05/19/19 16:00 98.0 72 18 133/76 (95) 97 05/19/19 15:01 82 18 100 Nasal Cannula 2.0 28 76 18 97 05/19/19 12:00 77 05/19/19 12:00 97.5 79 18 111/62 (78) 96 05/19/19 11:01 80 18 100 Nasal Cannula 2.0 28 74 18 98 05/19/19 09:00 Nasal Cannula 2.0 05/19/19 08:00 98.6 78 17 140/68 (92) 97 05/19/19 08:00 86 05/19/19 06:55 76 18 99 Nasal Cannula 2.0 28 84 18 97 05/19/19 06:54 97 Nasal Cannula 2.0 28 05/19/19 06:53 84 18 97 Nasal Cannula 2.0 28 05/19/19 04:00 91 05/19/19 04:00 97.7 95 19 132/66 (88) 97 05/19/19 02:46 77 18 100 Nasal Cannula 2.0 28 72 18 98 05/19/19 00:00 98.2 99 19 130/75 (93) 96 05/19/19 00:00 95 05/18/19 23:41 77 18 100 Nasal Cannula 2.0 28 75 18 97 Intake and Output 05/18/19 05/19/19 19:00 07:00 Intake Total 660 ml 27.5 ml Output Total 400 ml 400 ml Balance 260 ml -372.5 ml IV Total 27.5 ml Tube Feeding 660 ml Output Urine Total 400 ml 400 ml # Voids 2 1 # Bowel Movements 1 Height (Feet): 6 Height (Inches): 0.00 Weight (Pounds): 180 Objective Elderly AA man NCAT supple CTA RR abd soft no edema OBS Grecia Longoria MD May 19, 2019 22:30
--- NOTE | 2019-05-19 23:01 | Pulmonology Progress Note ---
Assessment/Plan Assessment/Plan Pulmonary Progress Note HPI Patient is a 69 year old male half-way patient with history of Chronic Obstructive Pulmonary Disease, Chronic Granulomatous Disease, Hypertension, Renal Myolipoma, history of seizures, dementia, encephalopathy, Diverticulosis, noncommunicative, admitted with respiratory distress, patient found to be hypoxic, congested, and more altered. No other history available. Recently discharged, had been treated for Pneumonia, Heel wound, noted to have high fever at [facility]. Also noted to have cough and increased congestion.Patient had prior history of dementia. History is markedly limited by patient's mental status. Awaiting PEG Allergies: PNEUMOCOCCAL VACCINE Past Medical History: Chronic Obstructive Pulmonary Disease, Chronic Granulomatous Disease, Hypertension, Diverticulosis, Renal Myolipoma, history of Seizures, history of Dementia, encephalopathy All Other Systems: limited - Not communicative Physical Exam Vital Signs Noted General Appearance: Wasted, Chronically Ill appearing Head: normocephalic, atraumatic Eyes: bilateral eye PERRL, bilateral eye EOMI ENT: uvula midline, dry mucus membranes Neck: supple, thyroid normal, supple/symm/no masses Respiratory: Bilateral rhonchi Cardiovascular: normal peripheral pulses, HS1, HS2, RRR, no edema, no gallop, no murmur, tachycardia Gastrointestinal: non tender, soft, no guarding, no rebound Musculoskeletal: normal inspection Neurologic: awake, chronically altered Skin: no rash, warm/dry Impression: Chronic obstructive pulmonary disease Healthcare-associated pneumonia Heel wounds Dyspnea, Hypoxia Dehydration Chronic Granulomatous Disease with two pleural based partially calcified areas Hypertension Diverticulosis Renal Myolipoma History of Seizures History of Dementia Chronic Encephalopathy Increased Calcium Plan - IV Antibiotics - PEG pending - HHN - O2 PRN - 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 Infectious infiltrates not excluded. Clinical correlation/follow-up recommended. CT Abdomen: Lung bases: patchy infiltrates CT Chest: 2 cm pleural-based masslike opacity containing multiple nodular calcifications andadjacent parenchymal linear density persists in the anterolateral periphery of thelateral segment right middle lobe, unchanged. Adjacent small nodular parenchymaldensities persist, unchanged. Small irregular pleural-based linear densities persist in the dependent portions of both lung bases, unchanged. No new pulmonary parenchymal abnormality demonstrated. No pleural disease is evident. Nodularcalcification in right hilum unchanged. Clustered calcified nodules in the subcarinal region of mediastinum unchanged. No new mediastinal or hilar enlarged lymph nodes. Heart remains normal in size. No pericardial abnormality. Centralmediastinal vasculature remains unremarkable in appearance. Subjective ROS Limited/Unobtainable: No Allergies: Coded Allergies: PNEUMOCOCCAL VACCINE (Unverified Allergy, Unknown, 10/07/18) Objective Last 24 Hour Vital Signs Date Time Temp Pulse Resp B/P (MAP) Pulse Ox O2 Delivery O2 Flow Rate FiO2 05/19/19 19:50 81 18 99 Nasal Cannula 2.0 28 05/19/19 19:50 82 18 100 Nasal Cannula 2.0 28 81 18 100 05/19/19 19:50 99 Nasal Cannula 2.0 28 05/19/19 16:00 91 05/19/19 16:00 98.0 72 18 133/76 (95) 97 05/19/19 15:01 82 18 100 Nasal Cannula 2.0 28 76 18 97 05/19/19 12:00 77 05/19/19 12:00 97.5 79 18 111/62 (78) 96 05/19/19 11:01 80 18 100 Nasal Cannula 2.0 28 74 18 98 05/19/19 09:00 Nasal Cannula 2.0 05/19/19 08:00 98.6 78 17 140/68 (92) 97 05/19/19 08:00 86 05/19/19 06:55 76 18 99 Nasal Cannula 2.0 84 18 97 05/19/19 06:54 97 Nasal Cannula 2.0 05/19/19 06:53 84 18 97 Nasal Cannula 2.0 28 05/19/19 04:00 91 05/19/19 04:00 97.7 95 19 132/66 (88) 97 05/19/19 02:46 77 18 100 Nasal Cannula 2.0 28 72 18 98 05/19/19 00:00 98.2 99 19 130/75 (93) 96 05/19/19 00:00 95 05/18/19 23:41 77 18 100 Nasal Cannula 2.0 28 75 18 97 Intake and Output 05/18/19 05/19/19 19:00 07:00 Intake Total 660 ml 27.5 ml Output Total 400 ml 400 ml Balance 260 ml -372.5 ml IV Total 27.5 ml Tube Feeding 660 ml Output Urine Total 400 ml 400 ml # Voids 2 1 # Bowel Movements 1 Current Medications Medications (Trade) Dose Ordered Sig/Nidhi Route PRN Reason Start Time Stop Time Status Last Admin Dose Admin Acetaminophen (Tylenol) 650 mg Q6H PRN ORAL Mild Pain/Temp > 100.5 05/15/19 09:45 06/14/19 09:44 Acetylcysteine (Mucomyst) 200 mg Q4HRT N 05/15/19 11:00 06/14/19 10:59 05/19/19 19:55 Albuterol/ Ipratropium (Albuterol/ Ipratropium) 3 ml Q4HRT [facility] 05/15/19 11:00 05/20/19 10:59 05/19/19 19:55 Amlodipine Besylate (Norvasc) 10 mg DAILY ORAL 05/16/19 09:00 06/15/19 08:59 05/18/19 09:35 Benztropine Mesylate (Cogentin) 0.5 mg TWICE A DAY ORAL 05/15/19 18:00 06/14/19 17:59 05/19/19 17:54 Dextrose/Sodium Chloride 1,000 ml @ 60 mls/hr [id number] IV 05/15/19 09:45 06/14/19 09:44 05/18/19 22:12 Donepezil HCl (Aricept) 5 mg QHS ORAL 05/15/19 21:00 06/14/19 20:59 05/19/19 21:00 Heparin Sodium (Porcine) (Heparin 5000 units/ml) 5,000 units EVERY 12 HOURS SUBQ 05/15/19 21:00 06/14/19 20:59 05/19/19 21:00 Levetiracetam (Keppra) 1,500 mg Q12HR ORAL 05/15/19 21:00 06/14/19 20:59 05/19/19 21:00 Mirtazapine (Remeron) 7.5 mg BEDTIME ORAL 05/19/19 21:00 06/14/19 20:59 05/19/19 21:00 Ondansetron HCl (Zofran) 4 mg Q8H PRN IVP Nausea & Vomiting 05/15/19 09:45 06/14/19 09:44 Piperacillin Sod/ Tazobactam Sod 3.375 gm/Sodium Chloride 110 ml @ 27.5 mls/hr Q8HR IVPB 05/15/19 14:00 05/22/19 13:59 05/19/19 22:07 Quetiapine Fumarate (SEROqueL) 100 mg TWICE A DAY ORAL 05/15/19 18:00 06/14/19 17:59 05/19/19 17:54 Porfirio Daniel MD May 19, 2019 23:01
[2019-05-20] VITALS: BP 150/77
[2019-05-20] MEDS: Albuterol/Ipratropium 3ml neb HHN SCH ×6 (03:30→23:43)
[2019-05-20] MEDS: Acetylcysteine 20% Soln 4ml HHN SCH ×6 (03:30→23:00)
[2019-05-20 04:00] VITALS: BP 139/58
[2019-05-20] MEDS: Piperacillin/Tazobactam 3.375 GM in NS 110 ML IVPB SCH ×3 (05:32→21:06)
[2019-05-20] MEDS: D5 1/2NS 1,000 ML IV SCH ×2 (05:32→23:48)
--- NOTE | 2019-05-20 06:13 | Hematology/Onc Progress Note ---
Assessment/Plan Assessment/Plan # Hypercalcemia r/o malignancy, r/o myeloma, elevated on admission, may be 2/2 dehydration --> Ca 10.2-->9.5->10.7, pth is wnl, spep is also wnl as is upep --> on iv fluids as per pcp --> renal eval prn --> pth on prior admission was 42 # Multiple lung nodules -- in 2017 2 cm pleural-based masslike opacity containing multiple nodular calcifications andadjacent parenchymal linear density persists in the anterolateral periphery of thelateral segment right middle lobe, unchanged. Adjacent small nodular parenchymaldensities persist, unchanged. 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 Greatly appreciate consultation! Subjective Constitutional: Denies: no symptoms, chills, fever, malaise, weakness, other HEENT: Denies: no symptoms, eye pain, blurred vision, tearing, double vision, ear pain, ear discharge, nose pain, nose congestion, throat pain, throat swelling, mouth pain, mouth swelling, other Cardiovascular: Denies: no symptoms, chest pain, edema, irregular heart rate, lightheadedness, palpitations, syncope, other Respiratory: Denies: no symptoms, cough, shortness of breath, SOB with excertion, SOB at rest, sputum, wheezing, other Neurologic/Psychiatric: Denies: no symptoms, anxiety, depressed, emotional problems, headache, numbness, paresthesia, pre-existing deficit, seizure, tingling, tremors, weakness, other Endocrine: Denies: no symptoms, excessive sweating, flushing, intolerance to cold, intolerance to heat, increased hunger, increased thirst, increased urine, unexplained weight gain, unexplained weight loss, other Hematologic/Lymphatic: Denies: no symptoms, anemia, easy bleeding, easy bruising, adenopathy, other Allergies: Coded Allergies: PNEUMOCOCCAL VACCINE (Unverified Allergy, Unknown, 10/07/18) Subjective 05/15 noncommunicative, was here yesterday and readmitted with ams and copd exacerbation, seen by Sravanthie 05/16: ngt in place, placed yesterday, is on fluids, sleepy this am 05/18: no acute events, no labs today, urine cx negative 05/19: no major bleeding reported, no acute events wbc is 13 05/20: no events, no bleeding, coags reordered for peg sunday Objective Objective Current Medications Medications (Trade) Dose Ordered Sig/Nidhi Route PRN Reason Start Time Stop Time Status Last Admin Dose Admin Acetaminophen (Tylenol) 650 mg Q6H PRN ORAL Mild Pain/Temp > 100.5 05/15/19 09:45 06/14/19 09:44 Acetylcysteine (Mucomyst) [address] [facility] 05/15/19 11:00 06/14/19 10:59 05/20/19 03:30 Albuterol/ Ipratropium (Albuterol/ Ipratropium) [address] [facility] 05/15/19 11:00 05/20/19 10:59 05/20/19 03:30 Amlodipine Besylate (Norvasc) 10 mg DAILY ORAL 05/16/19 09:00 06/15/19 08:59 05/18/19 09:35 Benztropine Mesylate (Cogentin) 0.5 mg TWICE A DAY ORAL 05/15/19 18:00 06/14/19 17:59 05/19/19 17:54 Dextrose/Sodium Chloride 1,000 ml @ 60 mls/hr [id number] IV 05/15/19 09:45 06/14/19 09:44 05/20/19 05:32 Donepezil HCl (Aricept) 5 mg QHS ORAL 05/15/19 21:00 06/14/19 20:59 05/19/19 21:00 Heparin Sodium (Porcine) (Heparin 5000 units/ml) 5,000 units EVERY 12 HOURS SUBQ 05/15/19 21:00 06/14/19 20:59 05/19/19 21:00 Levetiracetam (Keppra) 1,500 mg Q12HR ORAL 05/15/19 21:00 06/14/19 20:59 05/19/19 21:00 Mirtazapine (Remeron) 7.5 mg BEDTIME ORAL 05/19/19 21:00 06/14/19 20:59 05/19/19 21:00 Ondansetron HCl (Zofran) 4 mg Q8H PRN IVP Nausea & Vomiting 05/15/19 09:45 06/14/19 09:44 Piperacillin Sod/ Tazobactam Sod 3.375 gm/Sodium Chloride 110 ml @ 27.5 mls/hr Q8HR IVPB 05/15/19 14:00 05/22/19 13:59 05/20/19 05:32 Quetiapine Fumarate (SEROqueL) 100 mg TWICE A DAY ORAL 05/15/19 18:00 06/14/19 17:59 05/19/19 17:54 Last 24 Hour Vital Signs Date Time Temp Pulse Resp B/P (MAP) Pulse Ox O2 Delivery O2 Flow Rate FiO2 05/20/19 04:00 98.1 96 21 139/58 (85) 93 05/20/19 04:00 96 05/20/19 03:31 85 19 99 Nasal Cannula 2.0 28 87 18 95 05/20/19 00:00 98.1 115 22 150/77 (101) 93 05/19/19 23:33 83 19 100 Nasal Cannula 2.0 28 84 18 98 05/19/19 21:00 Nasal Cannula 2.0 05/19/19 20:00 106 05/19/19 20:00 98.1 98 21 150/77 (101) 94 05/19/19 19:50 81 18 99 Nasal Cannula 2.0 28 05/19/19 19:50 82 18 100 Nasal Cannula 2.0 28 81 18 100 05/19/19 19:50 99 Nasal Cannula 2.0 28 05/19/19 16:00 91 05/19/19 16:00 98.0 72 18 133/76 (95) 97 05/19/19 15:01 82 18 100 Nasal Cannula 2.0 28 76 18 97 05/19/19 12:00 77 05/19/19 12:00 97.5 79 18 111/62 (78) 96 05/19/19 11:01 80 18 100 Nasal Cannula 2.0 28 74 18 98 05/19/19 09:00 Nasal Cannula 2.0 05/19/19 08:00 98.6 78 17 140/68 (92) 97 05/19/19 08:00 86 05/19/19 06:55 76 18 99 Nasal Cannula 2.0 28 84 18 97 05/19/19 06:54 97 Nasal Cannula 2.0 28 05/19/19 06:53 84 18 97 Nasal Cannula 2.0 28 05/19/19 04:00 91 05/19/19 04:00 97.7 95 19 132/66 (88) 97 05/19/19 02:46 77 18 100 Nasal Cannula 2.0 28 72 18 98 05/19/19 00:00 98.2 99 19 130/75 (93) 96 05/19/19 00:00 95 05/18/19 23:41 77 18 100 Nasal Cannula 2.0 28 75 18 97 05/18/19 21:05 Nasal Cannula 2.0 05/18/19 21:00 Nasal Cannula 2.0 05/18/19 20:00 101 05/18/19 20:00 97.9 101 19 137/57 (83) 97 05/18/19 19:43 98 Nasal Cannula 2.0 28 05/18/19 19:42 78 18 98 Nasal Cannula 2.0 28 05/18/19 19:37 81 18 100 Nasal Cannula 2.0 28 78 18 98 05/18/19 16:00 80 05/18/19 16:00 97.5 83 20 118/67 (84) 99 05/18/19 15:22 88 18 100 Nasal Cannula 2.0 28 85 18 99 05/18/19 12:00 82 05/18/19 12:00 98.1 82 18 115/61 (79) 97 05/18/19 10:55 89 18 100 Nasal Cannula 2.0 28 84 18 99 05/18/19 09:35 61 122/75 05/18/19 09:00 Nasal Cannula 2.0 05/18/19 08:00 95 05/18/19 08:00 97.9 81 20 125/71 (89) 98 05/18/19 07:38 89 18 100 Nasal Cannula 2.0 28 86 18 97 05/18/19 07:38 73 16 98 Nasal Cannula 2.0 28 05/18/19 07:38 98 Nasal Cannula 2.0 28 Intake and Output 05/19/19 05/20/19 18:59 06:59 Intake Total 520.0 ml 437.5 ml Balance 520.0 ml 437.5 ml IV Total 465.0 ml 437.5 ml Tube Feeding 55 ml Labs Test 05/17/19 07:15 05/17/19 09:50 White Blood Count 13.4 K/UL (4.8-10.8) Red Blood Count 4.64 M/UL (4.70-6.10) Hemoglobin 14.8 G/DL (14.2-18.0) Hematocrit 44.6 % (42.0-52.0) Mean Corpuscular Volume 96 FL (80-99) Mean Corpuscular Hemoglobin 31.9 PG (27.0-31.0) Mean Corpuscular Hemoglobin Concent 33.2 G/DL (32.0-36.0) Red Cell Distribution Width 13.3 % (11.6-14.8) Platelet Count 288 K/UL (150-450) Mean Platelet Volume 5.3 FL (6.5-10.1) Neutrophils (%) (Auto) 69.4 % (45.0-75.0) Lymphocytes (%) (Auto) 16.6 % (20.0-45.0) Monocytes (%) (Auto) 10.4 % (1.0-10.0) Eosinophils (%) (Auto) 2.8 % (0.0-3.0) Basophils (%) (Auto) 0.8 % (0.0-2.0) Sodium Level 145 MMOL/L (136-145) Potassium Level 3.6 MMOL/L (3.5-5.1) Chloride Level 107 MMOL/L (98-107) Carbon Dioxide Level 31 MMOL/L (21-32) Anion Gap 7 mmol/L (5-15) Blood Urea Nitrogen 10 mg/dL (7-18) Creatinine 1.0 MG/DL (0.55-1.30) Estimat Glomerular Filtration Rate mL/min (>60) Glucose Level 122 MG/DL (74-106) Calcium Level 9.4 MG/DL (8.5-10.1) Total Bilirubin 0.4 MG/DL (0.2-1.0) Aspartate Amino Transf (AST/SGOT) 42 U/L (15-37) Alanine Aminotransferase (ALT/SGPT) 45 U/L (12-78) Alkaline Phosphatase 128 U/L (46-116) Total Protein 7.2 G/DL (6.4-8.2) Albumin 2.7 G/DL (3.4-5.0) Globulin 4.5 g/dL Albumin/Globulin Ratio 0.6 (1.0-2.7) Height (Feet): 6 Height (Inches): 0.00 Weight (Pounds): 180 Objective Gen: ill appearing, chronically Pulm: wheezing mild noted b/l, NC+ CV: rrr, no mgr Abd: soft, nt, nd, NG+ Ext: no cce Ignacio Ponce MD May 20, 2019 06:13
[2019-05-20 08:00] VITALS: BP 141/62
[2019-05-20] MEDS: Heparin 5000 units/ml inj SUBQ SCH ×2 (08:11→20:58)
--- NOTE | 2019-05-20 08:17 | Pulmonology Progress Note ---
Assessment/Plan Assessment/Plan Pulmonary Progress Note HPI Patient is a 69 year old male longterm patient with history of Chronic Obstructive Pulmonary Disease, Chronic Granulomatous Disease, Hypertension, Renal Myolipoma, history of seizures, dementia, encephalopathy, Diverticulosis, noncommunicative, admitted with respiratory distress, patient found to be hypoxic, congested, and more altered. No other history available. Recently discharged, had been treated for Pneumonia, Heel wound, noted to have high fever at [facility]. Also noted to have cough and increased congestion.Patient had prior history of dementia. History is markedly limited by patient's mental status. Awaiting PEG, has NGT Allergies: PNEUMOCOCCAL VACCINE Past Medical History: Chronic Obstructive Pulmonary Disease, Chronic Granulomatous Disease, Hypertension, Diverticulosis, Renal Myolipoma, history of Seizures, history of Dementia, encephalopathy All Other Systems: limited - Not communicative Physical Exam Vital Signs Noted General Appearance: Wasted, Chronically Ill appearing, comfortable Head: normocephalic, atraumatic Eyes: bilateral eye PERRL, bilateral eye EOMI ENT: uvula midline, dry mucus membranes, NGT Neck: supple, thyroid normal, supple/symm/no masses Respiratory: CTAB Cardiovascular: normal peripheral pulses, HS1, HS2, RRR, no edema, no gallop, no murmur, tachycardia Gastrointestinal: non tender, soft, no guarding, no rebound Musculoskeletal: normal inspection Neurologic: awake, chronically altered Skin: no rash, warm/dry Impression: Chronic obstructive pulmonary disease Healthcare-associated pneumonia Heel wounds Dyspnea, Hypoxia Dehydration Chronic Granulomatous Disease with two pleural based partially calcified areas Hypertension Diverticulosis Renal Myolipoma History of Seizures History of Dementia Chronic Encephalopathy Increased Calcium Plan - IV Antibiotics - HHN - 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 Infectious infiltrates not excluded. Clinical correlation/follow-up recommended. CT Abdomen: Lung bases: patchy infiltrates CT Chest: 2 cm pleural-based masslike opacity containing multiple nodular calcifications andadjacent parenchymal linear density persists in the anterolateral periphery of thelateral segment right middle lobe, unchanged. Adjacent small nodular parenchymaldensities persist, unchanged. Small irregular pleural-based linear densities persist in the dependent portions of both lung bases, unchanged. No new pulmonary parenchymal abnormality demonstrated. No pleural disease is evident. Nodularcalcification in right hilum unchanged. Clustered calcified nodules in the subcarinal region of mediastinum unchanged. No new mediastinal or hilar enlarged lymph nodes. Heart remains normal in size. No pericardial abnormality. Centralmediastinal vasculature remains unremarkable in appearance. Subjective ROS Limited/Unobtainable: No Allergies: Coded Allergies: PNEUMOCOCCAL VACCINE (Unverified Allergy, Unknown, 10/07/18) Objective Last 24 Hour Vital Signs Date Time Temp Pulse Resp B/P (MAP) Pulse Ox O2 Delivery O2 Flow Rate FiO2 05/20/19 08:00 98.0 93 20 141/62 (88) 97 05/20/19 07:50 76 16 98 Nasal Cannula 2.0 28 05/20/19 07:50 98 Nasal Cannula 2.0 28 05/20/19 07:50 80 20 99 Nasal Cannula 2.0 28 82 16 94 05/20/19 04:00 98.1 96 21 139/58 (85) 93 05/20/19 04:00 96 05/20/19 03:31 85 19 99 Nasal Cannula 2.0 28 87 18 95 05/20/19 00:00 98.1 115 22 150/77 (101) 93 05/19/19 23:33 83 19 100 Nasal Cannula 2.0 28 84 18 98 05/19/19 21:00 Nasal Cannula 2.0 05/19/19 20:00 106 05/19/19 20:00 98.1 98 21 150/77 (101) 94 05/19/19 19:50 81 18 99 Nasal Cannula 2.0 28 05/19/19 19:50 82 18 100 Nasal Cannula 2.0 28 81 18 100 05/19/19 19:50 99 Nasal Cannula 2.0 28 05/19/19 16:00 91 05/19/19 16:00 98.0 72 18 133/76 (95) 97 05/19/19 15:01 82 18 100 Nasal Cannula 2.0 28 76 18 97 05/19/19 12:00 77 05/19/19 12:00 97.5 79 18 111/62 (78) 96 05/19/19 11:01 80 18 100 Nasal Cannula 2.0 28 74 18 98 05/19/19 09:00 Nasal Cannula 2.0 Intake and Output 05/19/19 05/20/19 19:00 07:00 Intake Total 520.0 ml 437.5 ml Output Total 800 ml Balance 520.0 ml -362.5 ml IV Total 465.0 ml 437.5 ml Tube Feeding 55 ml Output Urine Total 800 ml # Voids 2 Current Medications Medications (Trade) Dose Ordered Sig/Nidhi Route PRN Reason Start Time Stop Time Status Last Admin Dose Admin Acetaminophen (Tylenol) 650 mg Q6H PRN ORAL Mild Pain/Temp > 100.5 05/15/19 09:45 06/14/19 09:44 Acetylcysteine (Mucomyst) 200 mg Q4HRT N 05/15/19 11:00 06/14/19 10:59 05/20/19 08:01 Albuterol/ Ipratropium (Albuterol/ Ipratropium) 3 ml Q4HRT [facility] 05/15/19 11:00 05/20/19 10:59 05/20/19 08:00 Amlodipine Besylate (Norvasc) 10 mg DAILY ORAL 05/16/19 09:00 06/15/19 08:59 05/18/19 09:35 Benztropine Mesylate (Cogentin) 0.5 mg TWICE A DAY ORAL 05/15/19 18:00 06/14/19 17:59 05/19/19 17:54 Dextrose/Sodium Chloride 1,000 ml @ 60 mls/hr [id number] IV 05/15/19 09:45 06/14/19 09:44 05/20/19 05:32 Donepezil HCl (Aricept) 5 mg QHS ORAL 05/15/19 21:00 06/14/19 20:59 05/19/19 21:00 Heparin Sodium (Porcine) (Heparin 5000 units/ml) 5,000 units EVERY 12 HOURS SUBQ 05/15/19 21:00 06/14/19 20:59 05/19/19 21:00 Levetiracetam (Keppra) 1,500 mg Q12HR ORAL 05/15/19 21:00 06/14/19 20:59 05/19/19 21:00 Mirtazapine (Remeron) 7.5 mg BEDTIME ORAL 05/19/19 21:00 06/14/19 20:59 05/19/19 21:00 Ondansetron HCl (Zofran) 4 mg Q8H PRN IVP Nausea & Vomiting 05/15/19 09:45 06/14/19 09:44 Piperacillin Sod/ Tazobactam Sod 3.375 gm/Sodium Chloride 110 ml @ 27.5 mls/hr Q8HR IVPB 05/15/19 14:00 05/22/19 13:59 05/20/19 05:32 Quetiapine Fumarate (SEROqueL) 100 mg TWICE A DAY ORAL 05/15/19 18:00 06/14/19 17:59 05/19/19 17:54 Porfirio Daniel MD May 20, 2019 08:17
[2019-05-20] MEDS: Benztropine 1mg tab ORAL SCH ×2 (08:22→17:10)
[2019-05-20 09:07] LABS: INR 0.9 (0.9-1.1)
[2019-05-20 12:00] VITALS: BP 127/68
--- NOTE | 2019-05-20 13:34 | Infectious Diseases Prog Note ---
Assessment/Plan Assessment/Plan A: Pneumonia secondary to aspiration Atelectasis hypoxemia, hypertension, dementia. Hypercalcemia Fecal impaction P; Continue Zosyn Will have PEG placement tomorrow F/U CBC Subjective ROS Limited/Unobtainable: Yes Constitutional: Denies: fever Neurologic: Reports: confusion, other - on restraint Allergies: Coded Allergies: PNEUMOCOCCAL VACCINE (Unverified Allergy, Unknown, 10/07/18) Objective Vital Signs Last 24 Hour Vital Signs Date Time Temp Pulse Resp B/P (MAP) Pulse Ox O2 Delivery O2 Flow Rate FiO2 05/20/19 12:00 98.1 93 19 127/68 (87) 98 05/20/19 12:00 92 05/20/19 09:00 Nasal Cannula 2.0 05/20/19 08:21 93 141/62 05/20/19 08:00 98.0 93 20 141/62 (88) 97 05/20/19 08:00 88 05/20/19 07:50 76 16 98 Nasal Cannula 2.0 28 05/20/19 07:50 98 Nasal Cannula 2.0 28 05/20/19 07:50 80 20 99 Nasal Cannula 2.0 28 82 16 94 05/20/19 04:00 98.1 96 21 139/58 (85) 93 05/20/19 04:00 96 05/20/19 03:31 85 19 99 Nasal Cannula 2.0 28 87 18 95 05/20/19 00:00 98.1 115 22 150/77 (101) 93 05/19/19 23:33 83 19 100 Nasal Cannula 2.0 28 84 18 98 05/19/19 21:00 Nasal Cannula 2.0 05/19/19 20:00 106 05/19/19 20:00 98.1 98 21 150/77 (101) 94 05/19/19 19:50 81 18 99 Nasal Cannula 2.0 28 05/19/19 19:50 82 18 100 Nasal Cannula 2.0 28 81 18 100 05/19/19 19:50 99 Nasal Cannula 2.0 28 05/19/19 16:00 91 05/19/19 16:00 98.0 72 18 133/76 (95) 97 05/19/19 15:01 82 18 100 Nasal Cannula 2.0 28 76 18 97 Height (Feet): 6 Height (Inches): 0.00 Weight (Pounds): 180 General Appearance: no acute distress HEENT: mucous membranes moist Respiratory/Chest: lungs clear, other - oxygen by nasal cannula Cardiovascular: normal rate Abdomen: soft, non tender, other - NG tube feeding Extremities: no edema Neurologic/Psychiatric: disoriented, aphasia Laboratory Tests Test 05/20/19 07:50 Prothrombin Time 10.1 SEC (9.30-11.50) Prothromb Time International Ratio 0.9 (0.9-1.1) Current Medications Medications (Trade) Dose Ordered Sig/Nidhi Route PRN Reason Start Time Stop Time Status Last Admin Dose Admin Acetaminophen (Tylenol) 650 mg Q6H PRN ORAL Mild Pain/Temp > 100.5 05/15/19 09:45 06/14/19 09:44 Acetylcysteine (Mucomyst) 200 mg Q4HRT [facility] 05/15/19 11:00 06/14/19 10:59 05/20/19 08:01 Albuterol/ Ipratropium (Albuterol/ Ipratropium) 3 ml Q4HRT [facility] 05/20/19 12:30 05/25/19 12:29 Amlodipine Besylate (Norvasc) 10 mg DAILY ORAL 05/16/19 09:00 06/15/19 08:59 05/20/19 08:21 Benztropine Mesylate (Cogentin) 0.5 mg TWICE A DAY ORAL 05/15/19 18:00 06/14/19 17:59 05/20/19 08:22 Dextrose/Sodium Chloride 1,000 ml @ 60 mls/hr [id number] IV 05/15/19 09:45 06/14/19 09:44 05/20/19 05:32 Donepezil HCl (Aricept) 5 mg QHS ORAL 05/15/19 21:00 06/14/19 20:59 05/19/19 21:00 Heparin Sodium (Porcine) (Heparin 5000 units/ml) 5,000 units EVERY 12 HOURS SUBQ 05/15/19 21:00 06/14/19 20:59 05/19/19 21:00 Levetiracetam (Keppra) 1,500 mg Q12HR ORAL 05/15/19 21:00 06/14/19 20:59 05/20/19 08:22 Mirtazapine (Remeron) 7.5 mg BEDTIME ORAL 05/19/19 21:00 06/14/19 20:59 05/19/19 21:00 Ondansetron HCl (Zofran) 4 mg Q8H PRN IVP Nausea & Vomiting 05/15/19 09:45 06/14/19 09:44 Piperacillin Sod/ Tazobactam Sod 3.375 gm/Sodium Chloride 110 ml @ 27.5 mls/hr Q8HR IVPB 05/15/19 14:00 05/22/19 13:59 05/20/19 05:32 Quetiapine Fumarate (SEROqueL) 100 mg TWICE A DAY ORAL 05/15/19 18:00 06/14/19 17:59 05/20/19 08:22 Curtis Farah MD May 20, 2019 13:34
--- NOTE | 2019-05-20 15:02 | Surgery Progress Note ---
Surgery Progress Note Subjective Additional Comments no acute events comfortable appearing exam stable labs noted micro reviewed imaging reviewed Objective Last 24 Hour Vital Signs Date Time Temp Pulse Resp B/P (MAP) Pulse Ox O2 Delivery O2 Flow Rate FiO2 05/20/19 12:00 98.1 93 19 127/68 (87) 98 05/20/19 12:00 92 05/20/19 09:00 Nasal Cannula 2.0 05/20/19 08:21 93 141/62 05/20/19 08:00 98.0 93 20 141/62 (88) 97 05/20/19 08:00 88 05/20/19 07:50 76 16 98 Nasal Cannula 2.0 28 05/20/19 07:50 98 Nasal Cannula 2.0 28 05/20/19 07:50 80 20 99 Nasal Cannula 2.0 28 82 16 94 05/20/19 04:00 98.1 96 21 139/58 (85) 93 05/20/19 04:00 96 05/20/19 03:31 85 19 99 Nasal Cannula 2.0 28 87 18 95 05/20/19 00:00 98.1 115 22 150/77 (101) 93 05/19/19 23:33 83 19 100 Nasal Cannula 2.0 28 84 18 98 05/19/19 21:00 Nasal Cannula 2.0 05/19/19 20:00 106 05/19/19 20:00 98.1 98 21 150/77 (101) 94 05/19/19 19:50 81 18 99 Nasal Cannula 2.0 28 05/19/19 19:50 82 18 100 Nasal Cannula 2.0 28 81 18 100 05/19/19 19:50 99 Nasal Cannula 2.0 28 05/19/19 16:00 91 05/19/19 16:00 98.0 72 18 133/76 (95) 97 I&O Intake and Output 05/19/19 05/20/19 19:00 07:00 Intake Total 520.0 ml 437.5 ml Output Total 800 ml Balance 520.0 ml -362.5 ml IV Total 465.0 ml 437.5 ml Tube Feeding 55 ml Output Urine Total 800 ml # Voids 2 Dressing: other Wound: other Drains: other Cardiovascular: RSR Respiratory: decreased breath sounds Abdomen: soft, present bowel sounds Extremities: no edema, no tenderness, no cyanosis Laboratory Tests Test 05/20/19 07:50 Prothrombin Time 10.1 SEC (9.30-11.50) Prothromb Time International Ratio 0.9 (0.9-1.1) Plan Problems: (1) Protein-calorie malnutrition, severe Assessment & Plan: (1) Decubitus skin ulcer Assessment & Plan: Pt presented on admission with DTPI sacrum with surrounding non-blanching erythema over historical scar from previous wound. An area of induration noted to sacrococcygeal area measuring (L)2.5cm x (W)2cm. Non-blanching erythema R heel with an area of fluctuance and maroon at lateral aspect of heel(L)3cm x (W)2.5cm . Pt exhibited agitation when affected area minimally palpated. L heel is boggy with non-blanching erythema. Shaft and penile head including scrotum are erythematous. Tx.Plan: Apply Moisture Barrier Paste to sacrum. Cover with Optifoam drsg. Change every 3 days and prn. Apply Triad Paste to penis scrotum and groin areas with each incontinence care. Apply Cavilon Skin Barrier to both heel. Cover each heel with Optifoam drsg. Change every 7 days and prn. Reposition at least every 2hours or as tolerated. Off-load heels with pillow. APM/CHRISTOPHER Mattress overlay. (2) Leukocytosis likely related to pulm infiltrate wounds do not clinically look infected abx for pna pulm input abx as per ID (3) xxx (4) Protein-calorie malnutrition, severe Assessment & Plan: PEG? polst reviewed. (5) Lung mass Assessment & Plan: 2 cm pleural-based masslike opacity containing multiple nodular calcifications andadjacent parenchymal linear density persists in the anterolateral periphery of thelateral segment right middle lobe, unchanged. Adjacent small nodular parenchymaldensities persist, unchanged. Small irregular pleural-based linear densities persist in the dependent portions of both lung bases, unchanged. No new pulmonary parenchymal abnormality demonstrated. No pleural disease is evident. Nodularcalcification in right hilum unchanged. Clustered calcified nodules in the subcarinal region of mediastinum unchanged. No new mediastinal or hilar enlarged lymph nodes. Heart remains normal in size. No pericardial abnormality. Centralmediastinal vasculature remains unremarkable in appearance. noted prior in 2017. no path available cxr noted Rectal distention by feces, could indicate rectal fecal impaction Colonic diverticulosis. No evidence of diverticulitis Ectatic common bile duct. Probably on the basis of senescent changes given active evidence of downstream obstructing lesion, but occult downstream obstructive process not completely excludable. Correlate with liver function tests Basilar pulmonary consolidation and atelectasis. Pneumonia possible. Correlate with clinical findings Satisfactory position of nasogastric tube Right hip prosthesis bowel care enema PEG? Gabino Little May 20, 2019 15:02
[2019-05-20 16:00] VITALS: BP 131/78
[2019-05-20] MEDS ORDERED: D5 1/2NS 1000ml IV ONE (16:12)
[2019-05-20] MEDS ORDERED: D5NS 1000ml IV ONE (16:12)
--- NOTE | 2019-05-20 18:27 | General Progress Note ---
Assessment/Plan Status: progressing Assessment/Plan: GI: Plan Problems: (1) Dysphagia (2) PEG (percutaneous endoscopic gastrostomy) adjustment/replacement/removal (3) PNA (pneumonia) (4) Protein-calorie malnutrition, severe (5) Dehydration (6) Abnormal LFT, improving Plan maintain patient NPO given the possibility of possible silent aspiration NGT feeds for now scheduled for PEG in am follow LFT abx per ID Subjective Allergies: Coded Allergies: PNEUMOCOCCAL VACCINE (Unverified Allergy, Unknown, 10/07/18) Subjective confused NGT in place For PEG placement in am LFT declining Objective Last 24 Hour Vital Signs Date Time Temp Pulse Resp B/P (MAP) Pulse Ox O2 Delivery O2 Flow Rate FiO2 05/20/19 16:00 98.6 92 19 131/78 (95) 98 05/20/19 16:00 105 05/20/19 15:32 86 22 100 Nasal Cannula 2.0 28 77 18 95 05/20/19 12:00 98.1 93 19 127/68 (87) 98 05/20/19 12:00 92 05/20/19 09:00 Nasal Cannula 2.0 05/20/19 08:21 93 141/62 05/20/19 08:00 98.0 93 20 141/62 (88) 97 05/20/19 08:00 88 05/20/19 07:50 76 16 98 Nasal Cannula 2.0 28 05/20/19 07:50 98 Nasal Cannula 2.0 28 05/20/19 07:50 80 20 99 Nasal Cannula 2.0 28 82 16 94 05/20/19 04:00 98.1 96 21 139/58 (85) 93 05/20/19 04:00 96 05/20/19 03:31 85 19 99 Nasal Cannula 2.0 28 87 18 95 05/20/19 00:00 98.1 115 22 150/77 (101) 93 05/19/19 23:33 83 19 100 Nasal Cannula 2.0 28 84 18 98 05/19/19 21:00 Nasal Cannula 2.0 05/19/19 20:00 106 05/19/19 20:00 98.1 98 21 150/77 (101) 94 05/19/19 19:50 81 18 99 Nasal Cannula 2.0 28 05/19/19 19:50 82 18 100 Nasal Cannula 2.0 28 81 18 100 05/19/19 19:50 99 Nasal Cannula 2.0 28 Intake and Output 05/19/19 05/20/19 19:00 07:00 Intake Total 520.0 ml 497.5 ml Output Total 800 ml Balance 520.0 ml -302.5 ml IV Total 465.0 ml 497.5 ml Tube Feeding 55 ml Output Urine Total 800 ml # Voids 2 Laboratory Tests 05/20/19 07:50: Prothrombin Time 10.1, Prothromb Time International Ratio 0.9 Height (Feet): 6 Height (Inches): 0.00 Weight (Pounds): 180 Objective Elderly AA man NCAT supple CTA RR abd soft no edema OBS Grecia Longoria MD May 20, 2019 18:27
[2019-05-20 20:00] VITALS: BP 135/81
--- NOTE | 2019-05-20 20:56 | General Progress Note ---
Assessment/Plan Problem List: (1) PNA (pneumonia) ICD Codes: J18.9 - Pneumonia, unspecified organism SNOMED: 078697081 (2) Fever ICD Codes: R50.9 - Fever, unspecified SNOMED: 699281884 (3) Protein-calorie malnutrition, severe ICD Codes: E43 - Unspecified severe protein-calorie malnutrition SNOMED: 429884163 (4) Dysphagia ICD Codes: R13.10 - Dysphagia, unspecified SNOMED: 77098023, 744223570 (5) Decubitus skin ulcer ICD Codes: L89.90 - Pressure ulcer of unspecified site, unspecified stage SNOMED: 438304381 (6) Schizophrenia ICD Codes: F20.9 - Schizophrenia, unspecified SNOMED: 19881815 (7) Acute febrile illness ICD Codes: R50.9 - Fever, unspecified SNOMED: 634675823 Status: progressing Assessment/Plan: sepsis pna needs feeding tube per gi peg per gi obs malnurished aspiration risk Subjective ROS Limited/Unobtainable: Yes Allergies: Coded Allergies: PNEUMOCOCCAL VACCINE (Unverified Allergy, Unknown, 10/07/18) Objective Last 24 Hour Vital Signs Date Time Temp Pulse Resp B/P (MAP) Pulse Ox O2 Delivery O2 Flow Rate FiO2 05/20/19 20:13 74 18 100 Nasal Cannula 2.0 28 71 18 97 05/20/19 20:12 97 Nasal Cannula 2.0 28 05/20/19 16:00 98.6 92 19 131/78 (95) 98 05/20/19 16:00 105 05/20/19 15:32 86 22 100 Nasal Cannula 2.0 77 18 95 05/20/19 12:00 98.1 93 19 127/68 (87) 98 05/20/19 12:00 92 05/20/19 09:00 Nasal Cannula 2.0 05/20/19 08:21 93 141/62 05/20/19 08:00 98.0 93 20 141/62 (88) 97 05/20/19 08:00 88 05/20/19 07:50 76 16 98 Nasal Cannula 2.0 28 05/20/19 07:50 98 Nasal Cannula 2.0 28 05/20/19 07:50 80 20 99 Nasal Cannula 2.0 28 82 16 94 05/20/19 04:00 98.1 96 21 139/58 (85) 93 05/20/19 04:00 96 05/20/19 03:31 85 19 99 Nasal Cannula 2.0 28 87 18 95 05/20/19 00:00 98.1 115 22 150/77 (101) 93 05/19/19 23:33 83 19 100 Nasal Cannula 2.0 28 84 18 98 05/19/19 21:00 Nasal Cannula 2.0 Intake and Output 05/19/19 05/20/19 19:00 07:00 Intake Total 520.0 ml 497.5 ml Output Total 800 ml Balance 520.0 ml -302.5 ml IV Total 465.0 ml 497.5 ml Tube Feeding 55 ml Output Urine Total 800 ml # Voids 2 Laboratory Tests 05/20/19 07:50: Prothrombin Time 10.1, Prothromb Time International Ratio 0.9 Height (Feet): 6 Height (Inches): 0.00 Weight (Pounds): 180 Cardiovascular: normal rate Respiratory/Chest: lungs clear Konrad Soares MD May 20, 2019 20:56
[2019-05-20] MEDS: Donepezil 5mg Tab ORAL SCH (20:57)
[2019-05-21] VITALS (9 sets, daily range): BP systolic 110–144; BP diastolic 71–96
[2019-05-21] MEDS: Albuterol/Ipratropium 3ml neb HHN SCH ×6 (03:35→23:32)
[2019-05-21] MEDS: Acetylcysteine 20% Soln 4ml HHN SCH ×6 (03:35→23:32)
[2019-05-21] MEDS: Piperacillin/Tazobactam 3.375 GM in NS 110 ML IVPB SCH ×3 (05:01→22:19)
[2019-05-21] MEDS: D5 1/2NS 1,000 ML IV SCH (05:57)
[2019-05-21] MEDS ORDERED: Succinylcholine 20mg/ml 10ml vial ONE (06:41)
--- NOTE | 2019-05-21 06:57 | Pre-Procedure Note/Attestation ---
Pre-Procedure Note/Attestation Complete Prior to Procedure Planned Procedure: not applicable Procedure Narrative: EGD PEG Indications for Procedure Pre-Operative Diagnosis: Dysphagia Attestation I attest that I discussed the nature of the procedure; its benefits; risks and complications; and alternatives (and the risks and benefits of such alternatives ), prior to the procedure, with the patient (or the patient's legal territory sales representative). I attest that, if there was a reasonable possibility of needing a blood transfusion, the patient (or the patient's legal territory sales representative) was given the [facility] standardized written summary, pursuant to the [place] [employer] Blood Safety Act ([place] Health and Safety Code # 1645, as amended). I attest that I re-evaluated the patient just prior to the surgery and that there has been no change in the patient's H&P, except as documented below: Grecia Longoria MD May 21, 2019 06:57
--- NOTE | 2019-05-21 06:57 | General Progress Note ---
Assessment/Plan Status: progressing Assessment/Plan: GI: Plan Problems: (1) Dysphagia (2) PEG (percutaneous endoscopic gastrostomy) adjustment/replacement/removal (3) PNA (pneumonia) (4) Protein-calorie malnutrition, severe (5) Dehydration (6) Abnormal LFT, with ectatic CBD on xray Plan NPO PEG today check MRCP of abdomen abx per ID Subjective Allergies: Coded Allergies: PNEUMOCOCCAL VACCINE (Unverified Allergy, Unknown, 10/07/18) Subjective confused for PEG placement labs noted Objective Last 24 Hour Vital Signs Date Time Temp Pulse Resp B/P (MAP) Pulse Ox O2 Delivery O2 Flow Rate FiO2 05/21/19 04:00 99.1 95 18 144/87 (106) 98 05/21/19 03:38 96 18 98 Nasal Cannula 2.0 28 94 18 95 05/21/19 03:29 94 05/21/19 00:00 98.1 101 18 128/85 (99) 95 05/20/19 23:44 78 18 100 Nasal Cannula 2.0 28 75 18 97 05/20/19 23:37 100 05/20/19 21:00 Nasal Cannula 2.0 05/20/19 20:13 74 18 100 Nasal Cannula 2.0 28 71 18 97 05/20/19 20:12 97 Nasal Cannula 2.0 28 05/20/19 20:00 97.8 98 19 135/81 (99) 98 05/20/19 19:30 83 05/20/19 16:00 98.6 92 19 131/78 (95) 98 05/20/19 16:00 105 05/20/19 15:32 86 22 100 Nasal Cannula 2.0 28 77 18 95 05/20/19 12:00 98.1 93 19 127/68 (87) 98 05/20/19 12:00 92 05/20/19 09:00 Nasal Cannula 2.0 05/20/19 08:21 93 141/62 05/20/19 08:00 98.0 93 20 141/62 (88) 97 05/20/19 08:00 88 05/20/19 07:50 76 16 98 Nasal Cannula 2.0 28 05/20/19 07:50 98 Nasal Cannula 2.0 28 05/20/19 07:50 80 20 99 Nasal Cannula 2.0 28 82 16 94 Intake and Output 05/20/19 05/21/19 18:59 06:59 Intake Total 1252.5 ml 1261.5 ml Output Total 800 ml 1300 ml Balance 452.5 ml -38.5 ml Free Water 200 ml 200 ml IV Total 447.5 ml 511.5 ml Tube Feeding 605 ml 550 ml Output Urine Total 800 ml 1300 ml # Voids 1 Laboratory Tests 05/20/19 07:50: Prothrombin Time 10.1, Prothromb Time International Ratio 0.9 Height (Feet): 6 Height (Inches): 0.00 Weight (Pounds): 167 Objective Elderly AA man NCAT supple CTA RR abd soft no edema OBS Grecia Longoria MD May 21, 2019 06:57
[2019-05-21] MEDS ORDERED: Propofol 200mg/20ml IV ONE (07:00)
[2019-05-21] MEDS ORDERED: Lidocaine 1% MPF 10mg/ml 5ml ONE (07:00)
--- NOTE | 2019-05-21 08:16 | Anethesia Preoperative Eval ---
Anesthesia Pre-op PMH/ROS General Date of Evaluation: May 21, 2019 Time of Evaluation: 06:50 Anesthesiologist: Leonor Guerra CRNA ASA Score: ASA 3 Mallampati Score Class I : Soft palate, uvula, fauces, pillars visible Class II: Soft palate, uvula, fauces visible Class III: Soft palate, base of uvula visible Class IV: Only hard plate visible Mallampati Classification: Class II Surgeon: Von Diagnosis: PNA, dehydration Surgical Procedure: EGD; PEG placement Social History: smoking Family History: no anesthesia problems Allergies: Coded Allergies: PNEUMOCOCCAL VACCINE (Unverified Allergy, Unknown, 10/07/18) Medications: see eMAR Patient NPO?: Yes NPO Date: May 21, 2019 NPO Time: 00:00 Past Medical History Cardiovascular: Reports: HTN, other - ST 2/2 PNA, dehydration; Denies: CAD, [place], valve dz, arrhythmia Pulmonary: Reports: COPD, other - PNA; Denies: asthma, RESHMA Gastrointestinal/Genitourinary: Reports: other - UTI; Denies: GERD, CRI, ESRD Neurologic/Psychiatric: Reports: dementia - Schizophrenia, encephalopathy; Denies: CVA, depression/anxiety, TIA, other Endocrine: Denies: DM, hypothyroidism, steroids, other HEENT: Denies: cataract (L), cataract (R), glaucoma, [place] (L), [place] (R), other Hematology/Immune: Reports: other - sepsis; Denies: anemia, DVT, bleeding disorder Musculoskeletal/Integumentary: Reports: OA; Denies: RA, DJD, DDD, edema, other PMH Narrative: as noted above PSxH Narrative: see H & P Anesthesia Pre-op Phys. Exam Physician Exam Last Vital Signs Date Time Temp Pulse Resp B/P (MAP) Pulse Ox O2 Delivery O2 Flow Rate FiO2 05/21/19 07:50 81 22 114/73 96 Nasal Cannula 3 05/21/19 07:35 97.7 05/21/19 03:38 28 Constitutional: NAD Neurologic: other - dementia, uncooperative Cardiovascular: RRR Respiratory: CTA, other - currently on NCO2 Gastrointestinal: S/NT/ND Airway Exam Mallampati Score: Class II MO: full Neck: FROM TMD: > 3 FB ROM: full Teeth: intact Dentures: no upper, no lower Anesthesia Pre-op A/P Studies Pre-op Studies: E[place] - SR, [place] [address]%' mild LVH, RVP 16 estimated Risk Assessment & Plan Assessment: ASA 3, ok to proceed Plan: MAC Status Change Before Surgery: No Pre-Antibiotics Given Within 1 Hr of Incision: Leonor Sargent CRNA May 21, 2019 08:16
--- NOTE | 2019-05-21 08:18 | Immediate Post-Op Evaluation ---
Immediate Post-Op Evalulation Immediate Post-Op Evalulation Procedure: EGD with PEG placement Date of Evaluation: May 21, 2019 Time of Evaluation: 07:40 Blood Pressure Systolic: 129 Blood Pressure Diastolic: 78 Pulse Rate: 96 Respiratory Rate: 22 O2 Sat by Pulse Oximetry: 96 Temperature (Fahrenheit): 97.7 Pain Score (1-10): 0 Nausea: No Vomiting: No Complications none Patient Status: awake, reacts, patent Hydration Status: adequate Drug: none Leonor Guerra CRNA May 21, 2019 08:18
[2019-05-21 08:36] LABS: BASOPHILS % (AUTO) 1.4 % (0.0-2.0); EOSINOPHILS % (AUTO) 1.9 % (0.0-3.0); HEMATOCRIT 45.3 % (42.0-52.0); HEMOGLOBIN 14.9 G/DL (14.2-18.0); LYMPHOCYTES % (AUTO) 15.8 % (20.0-45.0); MEAN CORPUSCULAR VOLUME 95 FL (80-99); MONOCYTES % (AUTO) 10.9 % (1.0-10.0); PLATELET COUNT 357 K/UL (150-450); RED BLOOD COUNT 4.75 M/UL (4.70-6.10); RED CELL DISTRIBUTION WIDTH 13.5 % (11.6-14.8); WHITE BLOOD COUNT 11.1 K/UL (4.8-10.8)
[2019-05-21] MEDS: Benztropine 1mg tab ORAL SCH ×2 (09:14→17:44)
[2019-05-21] MEDS: Heparin 5000 units/ml inj SUBQ SCH ×2 (09:18→09:24)
[2019-05-21 09:27] LABS: ALANINE AMINOTRANSFERASE 35 U/L (12-78); ALBUMIN 3.2 G/DL (3.4-5.0); ALBUMIN/GLOBULIN RATIO 0.6 (1.0-2.7); ALKALINE PHOSPHATASE 132 U/L (46-116); ANION GAP 7 mmol/L (5-15); ASPARTATE AMINO TRANSFERASE 38 U/L (15-37); BILIRUBIN,TOTAL 0.4 MG/DL (0.2-1.0); BLOOD UREA NITROGEN 10 mg/dL (7-18); CALCIUM 10.1 MG/DL (8.5-10.1); CARBON DIOXIDE 32 MMOL/L (21-32); CHLORIDE 105 MMOL/L (98-107); POTASSIUM 3.9 MMOL/L (3.5-5.1); SODIUM 144 MMOL/L (136-145)
--- NOTE | 2019-05-21 11:16 | 48 Hour Post Anesthesia Eval ---
Post Anesthesia Evaluation Procedure: EGD with PEG placement Date of Evaluation: May 21, 2019 Time of Evaluation: 11:12 Blood Pressure Systolic: 140 0: 98 Pulse Rate: 93 Respiratory Rate: 22 Temperature (Fahrenheit): 97.4 O2 Sat by Pulse Oximetry: 96 Airway: patent Nausea: No Vomiting: No Pain Intensity: 0 Cardiopulmonary Status: stable Mental Status/LOC: patient returned to baseline Follow-up Care/Observations: per hospitalist Post-Anesthesia Complications: none Follow-up care needed: N/A Leonor Guerra CRNA May 21, 2019 11:16
--- NOTE | 2019-05-21 12:23 | Pulmonology Progress Note ---
Assessment/Plan Assessment/Plan Pulmonary Progress Note HPI Patient is a 69 year old male half-way patient with history of Chronic Obstructive Pulmonary Disease, Chronic Granulomatous Disease, Hypertension, Renal Myolipoma, history of seizures, dementia, encephalopathy, Diverticulosis, noncommunicative, admitted with respiratory distress, patient found to be hypoxic, congested, and more altered. No other history available. Recently discharged, had been treated for Pneumonia, Heel wound, noted to have high fever at Shelter. Also noted to have cough and increased congestion.Patient had prior history of dementia. History is markedly limited by patient's mental status. Awaiting PEG, has NGT Allergies: PNEUMOCOCCAL VACCINE Past Medical History: Chronic Obstructive Pulmonary Disease, Chronic Granulomatous Disease, Hypertension, Diverticulosis, Renal Myolipoma, history of Seizures, history of Dementia, encephalopathy All Other Systems: limited - Not communicative Physical Exam Vital Signs Noted General Appearance: Wasted, Chronically Ill appearing, comfortable Head: normocephalic, atraumatic Eyes: bilateral eye PERRL, bilateral eye EOMI ENT: uvula midline, dry mucus membranes, NGT Neck: supple, thyroid normal, supple/symm/no masses Respiratory: CTAB Cardiovascular: normal peripheral pulses, HS1, HS2, RRR, no edema, no gallop, no murmur, tachycardia Gastrointestinal: non tender, soft, no guarding, no rebound Musculoskeletal: normal inspection Neurologic: awake, chronically altered Skin: no rash, warm/dry Impression: Chronic obstructive pulmonary disease Healthcare-associated pneumonia Heel wounds Dyspnea, Hypoxia Dehydration Chronic Granulomatous Disease with two pleural based partially calcified areas Hypertension Diverticulosis Renal Myolipoma History of Seizures History of Dementia Chronic Encephalopathy Increased Calcium Plan - IV Antibiotics - HHN - O2 PRN - [employer]IC Medications - Aspiration 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 Infectious infiltrates not excluded. Clinical correlation/follow-up recommended. CT Abdomen: Lung bases: patchy infiltrates CT Chest: 2 cm pleural-based masslike opacity containing multiple nodular calcifications andadjacent parenchymal linear density persists in the anterolateral periphery of thelateral segment right middle lobe, unchanged. Adjacent small nodular parenchymaldensities persist, unchanged. Small irregular pleural-based linear densities persist in the dependent portions of both lung bases, unchanged. No new pulmonary parenchymal abnormality demonstrated. No pleural disease is evident. Nodularcalcification in right hilum unchanged. Clustered calcified nodules in the subcarinal region of mediastinum unchanged. No new mediastinal or hilar enlarged lymph nodes. Heart remains normal in size. No pericardial abnormality. Centralmediastinal vasculature remains unremarkable in appearance. Subjective ROS Limited/Unobtainable: No Allergies: Coded Allergies: PNEUMOCOCCAL VACCINE (Unverified Allergy, Unknown, 10/07/18) Objective Last 24 Hour Vital Signs Date Time Temp Pulse Resp B/P (MAP) Pulse Ox O2 Delivery O2 Flow Rate FiO2 05/21/19 11:16 93 22 96 05/21/19 10:00 90 18 99 Nasal Cannula 2.0 28 88 18 96 05/21/19 09:16 93 140/98 05/21/19 09:00 Nasal Cannula 2.0 05/21/19 08:18 96 22 96 05/21/19 08:00 83 05/21/19 07:50 81 22 114/73 96 Nasal Cannula 3 05/21/19 07:40 88 22 110/80 96 Nasal Cannula 3 05/21/19 07:35 97.7 94 22 129/78 96 Nasal Cannula 3 05/21/19 04:00 99.1 95 18 144/87 (106) 98 05/21/19 03:38 96 18 98 Nasal Cannula 2.0 28 94 18 95 05/21/19 03:29 94 05/21/19 00:00 98.1 101 18 128/85 (99) 95 05/20/19 23:44 78 18 100 Nasal Cannula 2.0 28 75 18 97 05/20/19 23:37 100 05/20/19 21:00 Nasal Cannula 2.0 05/20/19 20:13 74 18 100 Nasal Cannula 2.0 28 71 18 97 05/20/19 20:12 97 Nasal Cannula 2.0 28 05/20/19 20:00 97.8 98 19 135/81 (99) 98 05/20/19 19:30 83 05/20/19 16:00 98.6 92 19 131/78 (95) 98 05/20/19 16:00 105 05/20/19 15:32 86 22 100 Nasal Cannula 2.0 28 77 18 95 Intake and Output 05/20/19 05/21/19 19:00 07:00 Intake Total 1472.5 ml 1041.5 ml Output Total 800 ml 1300 ml Balance 672.5 ml -258.5 ml Free Water 250 ml 150 ml IV Total 507.5 ml 451.5 ml Tube Feeding 715 ml 440 ml Output Urine Total 800 ml 1300 ml # Voids 1 Laboratory Tests 05/21/19 08:20: White Blood Count 11.1H, Red Blood Count 4.75, Hemoglobin 14.9, Hematocrit 45.3 , Mean Corpuscular Volume 95, Mean Corpuscular Hemoglobin 31.4H, Mean Corpuscular Hemoglobin Concent 33.0, Red Cell Distribution Width 13.5, Platelet Count 357, Mean Platelet Volume 5.2L, Neutrophils (%) (Auto) 70.0, Lymphocytes ( %) (Auto) 15.8L, Monocytes (%) (Auto) 10.9H, Eosinophils (%) (Auto) 1.9, Basophils (%) (Auto) 1.4, Sodium Level 144, Potassium Level 3.9, Chloride Level 105, Carbon Dioxide Level 32, Anion Gap 7, Blood Urea Nitrogen 10, Creatinine 1.0, Estimat Glomerular Filtration Rate , Glucose Level 116H, Calcium Level 10.1 , Total Bilirubin 0.4, Aspartate Amino Transf (AST/SGOT) 38H, Alanine Aminotransferase (ALT/SGPT) 35, Alkaline Phosphatase 132H, Total Protein 8.4H, Albumin 3.2L, Globulin 5.2, Albumin/Globulin Ratio 0.6L Current Medications Medications (Trade) Dose Ordered Sig/Nidhi Route PRN Reason Start Time Stop Time Status Last Admin Dose Admin Acetaminophen (Tylenol) 650 mg Q6H PRN ORAL Mild Pain/Temp > 100.5 05/15/19 09:45 06/14/19 09:44 Acetylcysteine (Mucomyst) 200 mg Q4HRT [facility] 05/15/19 11:00 06/14/19 10:59 05/21/19 09:57 Albuterol/ Ipratropium (Albuterol/ Ipratropium) 3 ml Q4HRT [facility] 05/20/19 12:30 05/25/19 12:29 05/21/19 09:58 Amlodipine Besylate (Norvasc) 10 mg DAILY ORAL 05/16/19 09:00 06/15/19 08:59 05/21/19 09:16 Benztropine Mesylate (Cogentin) 0.5 mg TWICE A DAY ORAL 05/15/19 18:00 06/14/19 17:59 05/21/19 09:14 Dextrose/Sodium Chloride 1,000 ml @ 60 mls/hr [id number] IV 05/15/19 09:45 06/14/19 09:44 05/20/19 23:48 Donepezil HCl (Aricept) 5 mg QHS ORAL 05/15/19 21:00 06/14/19 20:59 05/20/19 20:57 Heparin Sodium (Porcine) (Heparin 5000 units/ml) 5,000 units EVERY 12 HOURS SUBQ 05/15/19 21:00 06/14/19 20:59 05/19/19 21:00 Levetiracetam (Keppra) 1,500 mg Q12HR ORAL 05/15/19 21:00 06/14/19 20:59 05/21/19 09:15 Mirtazapine (Remeron) 7.5 mg BEDTIME ORAL 05/19/19 21:00 06/14/19 20:59 05/20/19 20:57 Ondansetron HCl (Zofran) 4 mg Q8H PRN IVP Nausea & Vomiting 05/15/19 09:45 06/14/19 09:44 Pantoprazole (Protonix) 40 mg DAILY ORAL 05/21/19 09:00 06/20/19 08:59 05/21/19 09:17 Piperacillin Sod/ Tazobactam Sod 3.375 gm/Sodium Chloride 110 ml @ 27.5 mls/hr Q8HR IVPB 05/15/19 14:00 05/22/19 13:59 05/21/19 05:01 Quetiapine Fumarate (SEROqueL) 100 mg TWICE A DAY ORAL 05/15/19 18:00 06/14/19 17:59 05/21/19 09:16 Porfirio Daniel MD May 21, 2019 12:23
--- NOTE | 2019-05-21 14:45 | Operative Note - Dictated ---
DATE OF OPERATION: 05/21/2019 NOTE: INCOMPLETE DICTATION GASTROENTEROLOGY PROCEDURE PROCEDURE: Upper gastrointestinal endoscopy with biopsy as well as gastrostomy tube placement. SURGEON: Grecia Longoria M.D. ANESTHESIA: Please see the separate anesthesiologist notes for details. PRE-ENDOSCOPIC DIAGNOSIS: Dysphagia. PROCEDURE: The endoscope was placed into oropharynx and advanced to duodenum. It was withdrawn and mucosa examined carefully. Findings and procedures listed below. Gastrostomy tube placed using standard pull technique. No complications. POST-ENDOSCOPIC DIAGNOSES: 1. Mid esophageal diverticulum. 2. Half a centimeter gastric ulcer in the proximal stomach. 3. Diminutive polyp in the fundus of the stomach, status post biopsy removal. Grecia Longoria M.D. DR: YOVANNY JOB#: [id number] CC: [place]
--- NOTE | 2019-05-21 14:58 | Infectious Diseases Prog Note ---
Assessment/Plan Assessment/Plan A: Pneumonia secondary to aspiration Atelectasis hypoxemia, hypertension, dementia. Hypercalcemia Fecal impaction Dysphagia s/p GT placement P; Continue Zosyn x 1 day F/U CBC Subjective ROS Limited/Unobtainable: Yes Constitutional: Denies: fever Gastrointestinal/Abdominal: Reports: other - had EGD & GT placement today Neurologic: Reports: other - on restraint Allergies: Coded Allergies: PNEUMOCOCCAL VACCINE (Unverified Allergy, Unknown, 10/07/18) Objective Vital Signs Last 24 Hour Vital Signs Date Time Temp Pulse Resp B/P (MAP) Pulse Ox O2 Delivery O2 Flow Rate FiO2 05/21/19 14:11 84 18 98 Nasal Cannula 2.0 28 82 18 97 05/21/19 12:00 97.8 77 19 126/83 (97) 98 05/21/19 12:00 83 05/21/19 11:16 93 22 96 05/21/19 10:00 90 18 99 Nasal Cannula 2.0 28 88 18 96 05/21/19 09:40 98.0 93 16 140/96 (111) 98 05/21/19 09:16 93 140/98 05/21/19 09:00 Nasal Cannula 2.0 05/21/19 08:18 96 22 96 05/21/19 08:00 83 05/21/19 07:50 81 22 114/73 96 Nasal Cannula 3 05/21/19 07:40 88 22 110/80 96 Nasal Cannula 3 05/21/19 07:35 97.7 94 22 129/78 96 Nasal Cannula 3 05/21/19 04:00 99.1 95 18 144/87 (106) 98 05/21/19 03:38 96 18 98 Nasal Cannula 2.0 28 94 18 95 05/21/19 03:29 94 05/21/19 00:00 98.1 101 18 128/85 (99) 95 05/20/19 23:44 78 18 100 Nasal Cannula 2.0 28 75 18 97 05/20/19 23:37 100 05/20/19 21:00 Nasal Cannula 2.0 05/20/19 20:13 74 18 100 Nasal Cannula 2.0 28 71 18 97 05/20/19 20:12 97 Nasal Cannula 2.0 28 05/20/19 20:00 97.8 98 19 135/81 (99) 98 05/20/19 19:30 83 12/17/19 16:00 98.6 92 19 131/78 (95) 98 05/20/19 16:00 105 05/20/19 15:32 86 22 100 Nasal Cannula 2.0 28 77 18 95 Height (Feet): 6 Height (Inches): 0.00 Weight (Pounds): 167 General Appearance: no acute distress HEENT: mucous membranes moist Respiratory/Chest: lungs clear Cardiovascular: normal rate Abdomen: soft, non tender, other - GT in place Extremities: no edema Neurologic/Psychiatric: aphasia Laboratory Tests Test 05/21/19 08:20 White Blood Count 11.1 K/UL (4.8-10.8) H Red Blood Count 4.75 M/UL (4.70-6.10) Hemoglobin 14.9 G/DL (14.2-18.0) Hematocrit 45.3 % (42.0-52.0) Mean Corpuscular Volume 95 FL (80-99) Mean Corpuscular Hemoglobin 31.4 PG (27.0-31.0) H Mean Corpuscular Hemoglobin Concent 33.0 G/DL (32.0-36.0) Red Cell Distribution Width 13.5 % (11.6-14.8) Platelet Count 357 K/UL (150-450) Mean Platelet Volume 5.2 FL (6.5-10.1) L Neutrophils (%) (Auto) 70.0 % (45.0-75.0) Lymphocytes (%) (Auto) 15.8 % (20.0-45.0) L Monocytes (%) (Auto) 10.9 % (1.0-10.0) H Eosinophils (%) (Auto) 1.9 % (0.0-3.0) Basophils (%) (Auto) 1.4 % (0.0-2.0) Sodium Level 144 MMOL/L (136-145) Potassium Level 3.9 MMOL/L (3.5-5.1) Chloride Level 105 MMOL/L (98-107) Carbon Dioxide Level 32 MMOL/L (21-32) Anion Gap 7 mmol/L (5-15) Blood Urea Nitrogen 10 mg/dL (7-18) Creatinine 1.0 MG/DL (0.55-1.30) Estimat Glomerular Filtration Rate mL/min (>60) Glucose Level 116 MG/DL (74-106) H Calcium Level 10.1 MG/DL (8.5-10.1) Total Bilirubin 0.4 MG/DL (0.2-1.0) Aspartate Amino Transf (AST/SGOT) 38 U/L (15-37) H Alanine Aminotransferase (ALT/SGPT) 35 U/L (12-78) Alkaline Phosphatase 132 U/L (46-116) H Total Protein 8.4 G/DL (6.4-8.2) H Albumin 3.2 G/DL (3.4-5.0) L Globulin 5.2 g/dL Albumin/Globulin Ratio 0.6 (1.0-2.7) L Current Medications Medications (Trade) Dose Ordered Sig/Nidhi Route PRN Reason Start Time Stop Time Status Last Admin Dose Admin Acetaminophen (Tylenol) 650 mg Q6H PRN ORAL Mild Pain/Temp > 100.5 05/15/19 09:45 06/14/19 09:44 Acetylcysteine (Mucomyst) 200 mg Q4HRT [facility] 05/15/19 11:00 06/14/19 10:59 05/21/19 14:10 Albuterol/ Ipratropium (Albuterol/ Ipratropium) 3 ml Q4HRT [facility] 05/20/19 12:30 05/25/19 12:29 05/21/19 14:10 Amlodipine Besylate (Norvasc) 10 mg DAILY ORAL 05/16/19 09:00 06/15/19 08:59 05/21/19 09:16 Benztropine Mesylate (Cogentin) 0.5 mg TWICE A DAY ORAL 05/15/19 18:00 06/14/19 17:59 05/21/19 09:14 Dextrose/Sodium Chloride 1,000 ml @ 60 mls/hr [id number] IV 05/15/19 09:45 06/14/19 09:44 05/20/19 23:48 Donepezil HCl (Aricept) 5 mg QHS ORAL 05/15/19 21:00 06/14/19 20:59 05/20/19 20:57 Heparin Sodium (Porcine) (Heparin 5000 units/ml) 5,000 units EVERY 12 HOURS SUBQ 05/15/19 21:00 06/14/19 20:59 05/19/19 21:00 Levetiracetam (Keppra) 1,500 mg Q12HR ORAL 05/15/19 21:00 06/14/19 20:59 05/21/19 09:15 Mirtazapine (Remeron) 7.5 mg BEDTIME ORAL 05/19/19 21:00 06/14/19 20:59 05/20/19 20:57 Ondansetron HCl (Zofran) 4 mg Q8H PRN IVP Nausea & Vomiting 05/15/19 09:45 06/14/19 09:44 Pantoprazole (Protonix) 40 mg DAILY ORAL 05/21/19 09:00 06/20/19 08:59 05/21/19 09:17 Piperacillin Sod/ Tazobactam Sod 3.375 gm/Sodium Chloride 110 ml @ 27.5 mls/hr Q8HR IVPB 05/15/19 14:00 05/26/19 13:59 05/21/19 05:01 Quetiapine Fumarate (SEROqueL) 100 mg TWICE A DAY ORAL 05/15/19 18:00 06/14/19 17:59 05/21/19 09:16 Curtis Farah MD May 21, 2019 14:58
[2019-05-21] MEDS ORDERED: D5 1/2NS 1000ml IV ONE (18:12)
--- NOTE | 2019-05-21 18:22 | Surgery Progress Note ---
Surgery Progress Note Subjective Symptoms: improved, tolerating diet, voiding well, passing flatus, BM Additional Comments leukocytosis improved exam stable comfortable Objective Last 24 Hour Vital Signs Date Time Temp Pulse Resp B/P (MAP) Pulse Ox O2 Delivery O2 Flow Rate FiO2 05/21/19 16:00 72 05/21/19 16:00 97.8 79 17 126/71 (89) 98 05/21/19 14:11 84 18 98 Nasal Cannula 2.0 28 82 18 97 05/21/19 12:00 97.8 77 19 126/83 (97) 98 05/21/19 12:00 83 05/21/19 11:16 93 22 96 05/21/19 10:00 90 18 99 Nasal Cannula 2.0 28 88 18 96 05/21/19 09:40 98.0 93 16 140/96 (111) 98 05/21/19 09:16 93 140/98 05/21/19 09:00 Nasal Cannula 2.0 05/21/19 08:18 96 22 96 05/21/19 08:00 83 05/21/19 07:50 81 22 114/73 96 Nasal Cannula 3 05/21/19 07:40 88 22 110/80 96 Nasal Cannula 3 05/21/19 07:35 97.7 94 22 129/78 96 Nasal Cannula 3 05/21/19 04:00 99.1 95 18 144/87 (106) 98 05/21/19 03:38 96 18 98 Nasal Cannula 2.0 28 94 18 95 05/21/19 03:29 94 05/21/19 00:00 98.1 101 18 128/85 (99) 95 05/20/19 23:44 78 18 100 Nasal Cannula 2.0 28 75 18 97 05/20/19 23:37 100 05/20/19 21:00 Nasal Cannula 2.0 05/20/19 20:13 74 18 100 Nasal Cannula 2.0 28 71 18 97 05/20/19 20:12 97 Nasal Cannula 2.0 28 05/20/19 20:00 97.8 98 19 135/81 (99) 98 05/20/19 19:30 83 I&O Intake and Output 05/20/19 05/21/19 19:00 07:00 Intake Total 1472.5 ml 1041.5 ml Output Total 800 ml 1300 ml Balance 672.5 ml -258.5 ml Free Water 250 ml 150 ml IV Total 507.5 ml 451.5 ml Tube Feeding 715 ml 440 ml Output Urine Total 800 ml 1300 ml # Voids 1 Dressing: saturated Wound: clean Cardiovascular: RSR Respiratory: clear, decreased breath sounds Abdomen: soft, present bowel sounds, non-distended Extremities: no tenderness, no cyanosis Laboratory Tests Test 05/21/19 08:20 White Blood Count 11.1 K/UL (4.8-10.8) H Red Blood Count 4.75 M/UL (4.70-6.10) Hemoglobin 14.9 G/DL (14.2-18.0) Hematocrit 45.3 % (42.0-52.0) Mean Corpuscular Volume 95 FL (80-99) Mean Corpuscular Hemoglobin 31.4 PG (27.0-31.0) H Mean Corpuscular Hemoglobin Concent 33.0 G/DL (32.0-36.0) Red Cell Distribution Width 13.5 % (11.6-14.8) Platelet Count 357 K/UL (150-450) Mean Platelet Volume 5.2 FL (6.5-10.1) L Neutrophils (%) (Auto) 70.0 % (45.0-75.0) Lymphocytes (%) (Auto) 15.8 % (20.0-45.0) L Monocytes (%) (Auto) 10.9 % (1.0-10.0) H Eosinophils (%) (Auto) 1.9 % (0.0-3.0) Basophils (%) (Auto) 1.4 % (0.0-2.0) Sodium Level 144 MMOL/L (136-145) Potassium Level 3.9 MMOL/L (3.5-5.1) Chloride Level 105 MMOL/L (98-107) Carbon Dioxide Level 32 MMOL/L (21-32) Anion Gap 7 mmol/L (5-15) Blood Urea Nitrogen 10 mg/dL (7-18) Creatinine 1.0 MG/DL (0.55-1.30) Estimat Glomerular Filtration Rate mL/min (>60) Glucose Level 116 MG/DL (74-106) H Calcium Level 10.1 MG/DL (8.5-10.1) Total Bilirubin 0.4 MG/DL (0.2-1.0) Aspartate Amino Transf (AST/SGOT) 38 U/L (15-37) H Alanine Aminotransferase (ALT/SGPT) 35 U/L (12-78) Alkaline Phosphatase 132 U/L (46-116) H Total Protein 8.4 G/DL (6.4-8.2) H Albumin 3.2 G/DL (3.4-5.0) L Globulin 5.2 g/dL Albumin/Globulin Ratio 0.6 (1.0-2.7) L Plan Problems: (1) Protein-calorie malnutrition, severe Assessment & Plan: (1) Decubitus skin ulcer Assessment & Plan: Pt presented on admission with DTPI sacrum with surrounding non-blanching erythema over historical scar from previous wound. An area of induration noted to sacrococcygeal area measuring (L)2.5cm x (W)2cm. Non-blanching erythema R heel with an area of fluctuance and maroon at lateral aspect of heel(L)3cm x (W)2.5cm . Pt exhibited agitation when affected area minimally palpated. L heel is boggy with non-blanching erythema. Shaft and penile head including scrotum are erythematous. Tx.Plan: Apply Moisture Barrier Paste to sacrum. Cover with Optifoam drsg. Change every 3 days and prn. Apply Triad Paste to penis scrotum and groin areas with each incontinence care. Apply Cavilon Skin Barrier to both heel. Cover each heel with Optifoam drsg. Change every 7 days and prn. Reposition at least every 2hours or as tolerated. Off-load heels with pillow. APM/CHRISTOPHER Mattress overlay. (2) Leukocytosis likely related to pulm infiltrate wounds do not clinically look infected abx for pna pulm input abx as per ID (3) xxx (4) Protein-calorie malnutrition, severe Assessment & Plan: PEG? polst reviewed. (5) Lung mass Assessment & Plan: 2 cm pleural-based masslike opacity containing multiple nodular calcifications andadjacent parenchymal linear density persists in the anterolateral periphery of thelateral segment right middle lobe, unchanged. Adjacent small nodular parenchymaldensities persist, unchanged. Small irregular pleural-based linear densities persist in the dependent portions of both lung bases, unchanged. No new pulmonary parenchymal abnormality demonstrated. No pleural disease is evident. Nodularcalcification in right hilum unchanged. Clustered calcified nodules in the subcarinal region of mediastinum unchanged. No new mediastinal or hilar enlarged lymph nodes. Heart remains normal in size. No pericardial abnormality. Centralmediastinal vasculature remains unremarkable in appearance. noted prior in 2017. no path available cxr noted Rectal distention by feces, could indicate rectal fecal impaction Colonic diverticulosis. No evidence of diverticulitis Ectatic common bile duct. Probably on the basis of senescent changes given active evidence of downstream obstructing lesion, but occult downstream obstructive process not completely excludable. Correlate with liver function tests Basilar pulmonary consolidation and atelectasis. Pneumonia possible. Correlate with clinical findings Satisfactory position of nasogastric tube Right hip prosthesis bowel care enema abx cont with current care plan Gabino Little May 21, 2019 18:22
--- NOTE | 2019-05-21 18:36 | Hematology/Onc Progress Note ---
Assessment/Plan Assessment/Plan # Hypercalcemia r/o malignancy, r/o myeloma, elevated on admission, may be 2/2 dehydration --> Ca 10.2-->9.5->10.7, pth is wnl, spep is also wnl as is upep --> on iv fluids as per pcp --> renal eval prn --> pth on prior admission was 42 # Multiple lung nodules -- in 2017 2 cm pleural-based masslike opacity containing multiple nodular calcifications andadjacent parenchymal linear density persists in the anterolateral periphery of thelateral segment right middle lobe, unchanged. Adjacent small nodular parenchymaldensities persist, unchanged. 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 Greatly appreciate consultation! Subjective Allergies: Coded Allergies: PNEUMOCOCCAL VACCINE (Unverified Allergy, Unknown, 10/07/18) Subjective 05/15 noncommunicative, was here yesterday and readmitted with ams and copd exacerbation, seen by Fredy 05/16: ngt in place, placed yesterday, is on fluids, sleepy this am 05/18: no acute events, no labs today, urine cx negative 05/19: no major bleeding reported, no acute events wbc is 13 05/20: no events, no bleeding, coags reordered for peg Wednesday 12/18: s/p egd with peg, labs reviewed, on zosyn, vs stable Objective Objective Current Medications Medications (Trade) Dose Ordered Sig/Nidhi Route PRN Reason Start Time Stop Time Status Last Admin Dose Admin Acetaminophen (Tylenol) 650 mg Q6H PRN ORAL Mild Pain/Temp > 100.5 05/15/19 09:45 06/14/19 09:44 Acetylcysteine (Mucomyst) 200 mg Q4HRT N 05/15/19 11:00 06/14/19 10:59 05/21/19 14:10 Albuterol/ Ipratropium (Albuterol/ Ipratropium) 3 ml Q4HRT N 05/20/19 12:30 05/25/19 12:29 05/21/19 14:10 Amlodipine Besylate (Norvasc) 10 mg DAILY ORAL 05/16/19 09:00 06/15/19 08:59 05/21/19 09:16 Benztropine Mesylate (Cogentin) 0.5 mg TWICE A DAY ORAL 05/15/19 18:00 06/14/19 17:59 05/21/19 17:44 Dextrose/Sodium Chloride 1,000 ml @ 60 mls/hr [id number] IV 05/15/19 09:45 06/14/19 09:44 05/20/19 23:48 Donepezil HCl (Aricept) 5 mg QHS ORAL 05/15/19 21:00 06/14/19 20:59 05/20/19 20:57 Heparin Sodium (Porcine) (Heparin 5000 units/ml) 5,000 units EVERY 12 HOURS SUBQ 05/15/19 21:00 06/14/19 20:59 05/19/19 21:00 Levetiracetam (Keppra) 1,500 mg Q12HR ORAL 05/15/19 21:00 06/14/19 20:59 05/21/19 09:15 Mirtazapine (Remeron) 7.5 mg BEDTIME ORAL 05/19/19 21:00 06/14/19 20:59 05/20/19 20:57 Ondansetron HCl (Zofran) 4 mg Q8H PRN IVP Nausea & Vomiting 05/15/19 09:45 06/14/19 09:44 Pantoprazole (Protonix) 40 mg DAILY ORAL 05/21/19 09:00 06/20/19 08:59 05/21/19 09:17 Piperacillin Sod/ Tazobactam Sod 3.375 gm/Sodium Chloride 110 ml @ 27.5 mls/hr Q8HR IVPB 05/15/19 14:00 05/26/19 13:59 05/21/19 15:00 Quetiapine Fumarate (SEROqueL) 100 mg TWICE A DAY ORAL 05/15/19 18:00 06/14/19 17:59 05/21/19 17:43 Last 24 Hour Vital Signs Date Time Temp Pulse Resp B/P (MAP) Pulse Ox O2 Delivery O2 Flow Rate FiO2 05/21/19 16:00 72 05/21/19 16:00 97.8 79 17 126/71 (89) 98 05/21/19 14:11 84 18 98 Nasal Cannula 2.0 28 82 18 97 05/21/19 12:00 97.8 77 19 126/83 (97) 98 05/21/19 12:00 83 05/21/19 11:16 93 22 96 05/21/19 10:00 90 18 99 Nasal Cannula 2.0 28 88 18 96 05/21/19 09:40 98.0 93 16 140/96 (111) 98 05/21/19 09:16 93 140/98 05/21/19 09:00 Nasal Cannula 2.0 05/21/19 08:18 96 22 96 05/21/19 08:00 83 05/21/19 07:50 81 22 114/73 96 Nasal Cannula 3 05/21/19 07:40 88 22 110/80 96 Nasal Cannula 3 05/21/19 07:35 97.7 94 22 129/78 96 Nasal Cannula 3 05/21/19 04:00 99.1 95 18 144/87 (106) 98 05/21/19 03:38 96 18 98 Nasal Cannula 2.0 28 94 18 95 05/21/19 03:29 94 05/21/19 00:00 98.1 101 18 128/85 (99) 95 05/20/19 23:44 78 18 100 Nasal Cannula 2.0 28 75 18 97 05/20/19 23:37 100 05/20/19 21:00 Nasal Cannula 2.0 05/20/19 20:13 74 18 100 Nasal Cannula 2.0 28 71 18 97 05/20/19 20:12 97 Nasal Cannula 2.0 28 05/20/19 20:00 97.8 98 19 135/81 (99) 98 05/20/19 19:30 83 05/20/19 16:00 98.6 92 19 131/78 (95) 98 05/20/19 16:00 105 05/20/19 15:32 86 22 100 Nasal Cannula 2.0 28 77 18 95 05/20/19 12:00 98.1 93 19 127/68 (87) 98 05/20/19 12:00 92 05/20/19 09:00 Nasal Cannula 2.0 05/20/19 08:21 93 141/62 05/20/19 08:00 98.0 93 20 141/62 (88) 97 05/20/19 08:00 88 05/20/19 07:50 76 16 98 Nasal Cannula 2.0 28 05/20/19 07:50 98 Nasal Cannula 2.0 28 05/20/19 07:50 80 20 99 Nasal Cannula 2.0 28 82 16 94 05/20/19 04:00 98.1 96 21 139/58 (85) 93 05/20/19 04:00 96 05/20/19 03:31 85 19 99 Nasal Cannula 2.0 28 87 18 95 05/20/19 00:00 98.1 115 22 150/77 (101) 93 05/19/19 23:33 83 19 100 Nasal Cannula 2.0 28 84 18 98 05/19/19 21:00 Nasal Cannula 2.0 05/19/19 20:00 106 05/19/19 20:00 98.1 98 21 150/77 (101) 94 05/19/19 19:50 81 18 99 Nasal Cannula 2.0 28 05/19/19 19:50 82 18 100 Nasal Cannula 2.0 28 81 18 100 05/19/19 19:50 99 Nasal Cannula 2.0 28 Intake and Output 05/20/19 05/21/19 19:00 07:00 Intake Total 1472.5 ml 1041.5 ml Output Total 800 ml 1300 ml Balance 672.5 ml -258.5 ml Free Water 250 ml 150 ml IV Total 507.5 ml 451.5 ml Tube Feeding 715 ml 440 ml Output Urine Total 800 ml 1300 ml # Voids 1 Labs Test 05/20/19 07:50 05/21/19 08:20 Prothrombin Time 10.1 SEC (9.30-11.50) Prothromb Time International Ratio 0.9 (0.9-1.1) White Blood Count 11.1 K/UL (4.8-10.8) Red Blood Count 4.75 M/UL (4.70-6.10) Hemoglobin 14.9 G/DL (14.2-18.0) Hematocrit 45.3 % (42.0-52.0) Mean Corpuscular Volume 95 FL (80-99) Mean Corpuscular Hemoglobin 31.4 PG (27.0-31.0) Mean Corpuscular Hemoglobin Concent 33.0 G/DL (32.0-36.0) Red Cell Distribution Width 13.5 % (11.6-14.8) Platelet Count 357 K/UL (150-450) Mean Platelet Volume 5.2 FL (6.5-10.1) Neutrophils (%) (Auto) 70.0 % (45.0-75.0) Lymphocytes (%) (Auto) 15.8 % (20.0-45.0) Monocytes (%) (Auto) 10.9 % (1.0-10.0) Eosinophils (%) (Auto) 1.9 % (0.0-3.0) Basophils (%) (Auto) 1.4 % (0.0-2.0) Sodium Level 144 MMOL/L (136-145) Potassium Level 3.9 MMOL/L (3.5-5.1) Chloride Level 105 MMOL/L (98-107) Carbon Dioxide Level 32 MMOL/L (21-32) Anion Gap 7 mmol/L (5-15) Blood Urea Nitrogen 10 mg/dL (7-18) Creatinine 1.0 MG/DL (0.55-1.30) Estimat Glomerular Filtration Rate mL/min (>60) Glucose Level 116 MG/DL (74-106) Calcium Level 10.1 MG/DL (8.5-10.1) Total Bilirubin 0.4 MG/DL (0.2-1.0) Aspartate Amino Transf (AST/SGOT) 38 U/L (15-37) Alanine Aminotransferase (ALT/SGPT) 35 U/L (12-78) Alkaline Phosphatase 132 U/L (46-116) Total Protein 8.4 G/DL (6.4-8.2) Albumin 3.2 G/DL (3.4-5.0) Globulin 5.2 g/dL Albumin/Globulin Ratio 0.6 (1.0-2.7) Height (Feet): 6 Height (Inches): 0.00 Weight (Pounds): 167 Objective Gen: ill appearing, chronically Pulm: wheezing mild noted b/l, NC+ CV: rrr, no mgr Abd: soft, nt, nd, NG+ Ext: no cce Ignacio Ponce MD May 21, 2019 18:36
--- NOTE | 2019-05-21 20:13 | Cardiology Progress Note ---
Assessment/Plan Assessment/Plan 1. Dyspnea, likely due to underlying bilateral healthcare-associated pneumonia. Continue IV antibiotics, normal LVEF at 65% with normal intracardiac filling pressure. 2. History of chronic obstructive pulmonary disease. 3. History of encephalopathy, nonverbal status. 4. History of seizure disorder, on Keppra. 5. Sinus tachycardia, resolved, continue hydration. 6. History of hypertension, continue amlodipine. Subjective Subjective Sinus rhythm at rate of 82. Objective Last 24 Hour Vital Signs Date Time Temp Pulse Resp B/P (MAP) Pulse Ox O2 Delivery O2 Flow Rate FiO2 05/21/19 19:42 82 16 98 Nasal Cannula 2.0 28 80 16 97 05/21/19 19:42 97 Nasal Cannula 2.0 28 05/21/19 16:00 72 05/21/19 16:00 97.8 79 17 126/71 (89) 98 05/21/19 14:11 84 18 98 Nasal Cannula 2.0 28 82 18 97 05/21/19 12:00 97.8 77 19 126/83 (97) 98 05/21/19 12:00 83 05/21/19 11:16 93 22 96 05/21/19 10:00 90 18 99 Nasal Cannula 2.0 28 88 18 96 05/21/19 09:40 98.0 93 16 140/96 (111) 98 05/21/19 09:16 93 140/98 05/21/19 09:00 Nasal Cannula 2.0 05/21/19 08:18 96 22 96 05/21/19 08:00 83 05/21/19 07:50 81 22 114/73 96 Nasal Cannula 3 05/21/19 07:40 88 22 110/80 96 Nasal Cannula 3 05/21/19 07:35 97.7 94 22 129/78 96 Nasal Cannula 3 05/21/19 04:00 99.1 95 18 144/87 (106) 98 05/21/19 03:38 96 18 98 Nasal Cannula 2.0 28 94 18 95 05/21/19 03:29 94 05/21/19 00:00 98.1 101 18 128/85 (99) 95 05/20/19 23:44 78 18 100 Nasal Cannula 2.0 28 75 18 97 05/20/19 23:37 100 05/20/19 21:00 Nasal Cannula 2.0 Intake and Output 05/20/19 05/21/19 19:00 07:00 Intake Total 1472.5 ml 1041.5 ml Output Total 800 ml 1300 ml Balance 672.5 ml -258.5 ml Free Water 250 ml 150 ml IV Total 507.5 ml 451.5 ml Tube Feeding 715 ml 440 ml Output Urine Total 800 ml 1300 ml # Voids 1 2D Echo: LVEF 65%, Mild LVH, RVSP 16 mmHg, Normal LV Diastolic fxn. Laboratory Tests Test 05/21/19 08:20 White Blood Count 11.1 K/UL (4.8-10.8) H Red Blood Count 4.75 M/UL (4.70-6.10) Hemoglobin 14.9 G/DL (14.2-18.0) Hematocrit 45.3 % (42.0-52.0) Mean Corpuscular Volume 95 FL (80-99) Mean Corpuscular Hemoglobin 31.4 PG (27.0-31.0) H Mean Corpuscular Hemoglobin Concent 33.0 G/DL (32.0-36.0) Red Cell Distribution Width 13.5 % (11.6-14.8) Platelet Count 357 K/UL (150-450) Mean Platelet Volume 5.2 FL (6.5-10.1) L Neutrophils (%) (Auto) 70.0 % (45.0-75.0) Lymphocytes (%) (Auto) 15.8 % (20.0-45.0) L Monocytes (%) (Auto) 10.9 % (1.0-10.0) H Eosinophils (%) (Auto) 1.9 % (0.0-3.0) Basophils (%) (Auto) 1.4 % (0.0-2.0) Sodium Level 144 MMOL/L (136-145) Potassium Level 3.9 MMOL/L (3.5-5.1) Chloride Level 105 MMOL/L (98-107) Carbon Dioxide Level 32 MMOL/L (21-32) Anion Gap 7 mmol/L (5-15) Blood Urea Nitrogen 10 mg/dL (7-18) Creatinine 1.0 MG/DL (0.55-1.30) Estimat Glomerular Filtration Rate mL/min (>60) Glucose Level 116 MG/DL (74-106) H Calcium Level 10.1 MG/DL (8.5-10.1) Total Bilirubin 0.4 MG/DL (0.2-1.0) Aspartate Amino Transf (AST/SGOT) 38 U/L (15-37) H Alanine Aminotransferase (ALT/SGPT) 35 U/L (12-78) Alkaline Phosphatase 132 U/L (46-116) H Total Protein 8.4 G/DL (6.4-8.2) H Albumin 3.2 G/DL (3.4-5.0) L Globulin 5.2 g/dL Albumin/Globulin Ratio 0.6 (1.0-2.7) L Objective HEENT: Atraumatic and normocephalic. Anicteric sclerae. Pupils are equal, round, and reactive to light and accommodation. Extraocular muscles intact. NECK: JVP less than 5 cm. No carotid bruit. Carotid upstroke is 2+ bilaterally. CARDIOVASCULAR: Normal S1, S2. Regular rate and rhythm. No murmurs, gallops, or rubs. PMI is at fourth intercostal space in the midclavicular line. LUNGS: Diminished breath sounds in both bases with associated crackles. ABDOMEN: Soft, nontender, and nondistended. No hepatosplenomegaly. Positive bowel sounds. EXTREMITIES: No evidence of edema, clubbing, or cyanosis. Sajan Altman MD May 21, 2019 20:13
[2019-05-21] MEDS: Donepezil 5mg Tab ORAL SCH (20:53)
--- NOTE | 2019-05-21 22:42 | General Progress Note ---
Assessment/Plan Problem List: (1) PNA (pneumonia) ICD Codes: J18.9 - Pneumonia, unspecified organism SNOMED: 499115959 (2) Fever ICD Codes: R50.9 - Fever, unspecified SNOMED: 712191672 (3) Protein-calorie malnutrition, severe ICD Codes: E43 - Unspecified severe protein-calorie malnutrition SNOMED: 332083788 (4) Dysphagia ICD Codes: R13.10 - Dysphagia, unspecified SNOMED: 57079772, 392917925 (5) Decubitus skin ulcer ICD Codes: L89.90 - Pressure ulcer of unspecified site, unspecified stage SNOMED: 479258191 (6) Schizophrenia ICD Codes: F20.9 - Schizophrenia, unspecified SNOMED: 47898486 (7) Acute febrile illness ICD Codes: R50.9 - Fever, unspecified SNOMED: 604560124 Status: progressing Assessment/Plan: no acute events afebrile needs feeding tube per gi peg per gi obs malnurished aspiration risk Subjective ROS Limited/Unobtainable: Yes Allergies: Coded Allergies: PNEUMOCOCCAL VACCINE (Unverified Allergy, Unknown, 10/07/18) Objective Last 24 Hour Vital Signs Date Time Temp Pulse Resp B/P (MAP) Pulse Ox O2 Delivery O2 Flow Rate FiO2 05/21/19 19:42 82 16 98 Nasal Cannula 2.0 28 80 16 97 05/21/19 19:42 97 Nasal Cannula 2.0 28 05/21/19 16:00 72 05/21/19 16:00 97.8 79 17 126/71 (89) 98 05/21/19 14:11 84 18 98 Nasal Cannula 2.0 28 82 18 97 05/21/19 12:00 97.8 77 19 126/83 (97) 98 05/21/19 12:00 83 05/21/19 11:16 93 22 96 05/21/19 10:00 90 18 99 Nasal Cannula 2.0 28 88 18 96 05/21/19 09:40 98.0 93 16 140/96 (111) 98 05/21/19 09:16 93 140/98 05/21/19 09:00 Nasal Cannula 2.0 05/21/19 08:18 96 22 96 05/21/19 08:00 83 05/21/19 07:50 81 22 114/73 96 Nasal Cannula 3 05/21/19 07:40 88 22 110/80 96 Nasal Cannula 3 05/21/19 07:35 97.7 94 22 129/78 96 Nasal Cannula 3 05/21/19 04:00 99.1 95 18 144/87 (106) 98 05/21/19 03:38 96 18 98 Nasal Cannula 2.0 28 94 18 95 05/21/19 03:29 94 05/21/19 00:00 98.1 101 18 128/85 (99) 95 05/20/19 23:44 78 18 100 Nasal Cannula 2.0 28 75 18 97 05/20/19 23:37 100 Intake and Output 05/20/19 05/21/19 19:00 07:00 Intake Total 1472.5 ml 1041.5 ml Output Total 800 ml 1300 ml Balance 672.5 ml -258.5 ml Free Water 250 ml 150 ml IV Total 507.5 ml 451.5 ml Tube Feeding 715 ml 440 ml Output Urine Total 800 ml 1300 ml # Voids 1 Laboratory Tests 05/21/19 08:20: White Blood Count 11.1H, Red Blood Count 4.75, Hemoglobin 14.9, Hematocrit 45.3 , Mean Corpuscular Volume 95, Mean Corpuscular Hemoglobin 31.4H, Mean Corpuscular Hemoglobin Concent 33.0, Red Cell Distribution Width 13.5, Platelet Count 357, Mean Platelet Volume 5.2L, Neutrophils (%) (Auto) 70.0, Lymphocytes ( %) (Auto) 15.8L, Monocytes (%) (Auto) 10.9H, Eosinophils (%) (Auto) 1.9, Basophils (%) (Auto) 1.4, Sodium Level 144, Potassium Level 3.9, Chloride Level 105, Carbon Dioxide Level 32, Anion Gap 7, Blood Urea Nitrogen 10, Creatinine 1.0, Estimat Glomerular Filtration Rate , Glucose Level 116H, Calcium Level 10.1 , Total Bilirubin 0.4, Aspartate Amino Transf (AST/SGOT) 38H, Alanine Aminotransferase (ALT/SGPT) 35, Alkaline Phosphatase 132H, Total Protein 8.4H, Albumin 3.2L, Globulin 5.2, Albumin/Globulin Ratio 0.6L Height (Feet): 6 Height (Inches): 0.00 Weight (Pounds): 167 General Appearance: confused Cardiovascular: normal rate Respiratory/Chest: rhonchi - bilaterally Konrad Soares MD May 21, 2019 22:42
[2019-05-22] VITALS: BP 132/108
[2019-05-22] MEDS: Albuterol/Ipratropium 3ml neb HHN SCH ×6 (03:57→22:55)
[2019-05-22] MEDS: Acetylcysteine 20% Soln 4ml HHN SCH ×6 (03:57→22:55)
[2019-05-22 04:00] VITALS: BP 142/57
[2019-05-22] MEDS: Piperacillin/Tazobactam 3.375 GM in NS 110 ML IVPB SCH (05:54)
[2019-05-22 08:00] VITALS: BP 133/80
[2019-05-22] MEDS ORDERED: KEPPRA500 M4 ORAL (08:16)
--- NOTE | 2019-05-22 09:08 | Hematology/Onc Progress Note ---
Assessment/Plan Assessment/Plan # Hypercalcemia r/o malignancy, r/o myeloma, elevated on admission, may be 2/2 dehydration --> Ca 10.2-->9.5->10.7, pth is wnl, spep is also wnl as is upep --> on iv fluids as per pcp --> renal eval prn --> pth on prior admission was 42 # Multiple lung nodules -- in 2017 2 cm pleural-based masslike opacity containing multiple nodular calcifications andadjacent parenchymal linear density persists in the anterolateral periphery of thelateral segment right middle lobe, unchanged. Adjacent small nodular parenchymaldensities persist, unchanged. 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 Greatly appreciate consultation! Subjective HEENT: Denies: no symptoms, eye pain, blurred vision, tearing, double vision, ear pain, ear discharge, nose pain, nose congestion, throat pain, throat swelling, mouth pain, mouth swelling, other Cardiovascular: Denies: no symptoms, chest pain, edema, irregular heart rate, lightheadedness, palpitations, syncope, other Respiratory: Denies: no symptoms, cough, shortness of breath, SOB with excertion, SOB at rest, sputum, wheezing, other Genitourinary: Denies: no symptoms, burning, discharge, frequency, flank pain, hematuria, incontinence, pain, urgency, other Neurologic/Psychiatric: Denies: no symptoms, anxiety, depressed, emotional problems, headache, numbness, paresthesia, pre-existing deficit, seizure, tingling, tremors, weakness, other Endocrine: Denies: no symptoms, excessive sweating, flushing, intolerance to cold, intolerance to heat, increased hunger, increased thirst, increased urine, unexplained weight gain, unexplained weight loss, other Allergies: Coded Allergies: PNEUMOCOCCAL VACCINE (Unverified Allergy, Unknown, 10/07/18) Subjective 05/15 noncommunicative, was here yesterday and readmitted with ams and copd exacerbation, seen by Fredy 05/16: ngt in place, placed yesterday, is on fluids, sleepy this am 05/18: no acute events, no labs today, urine cx negative 05/19: no major bleeding reported, no acute events wbc is 13 05/20: no events, no bleeding, coags reordered for peg Monday 05/21: s/p egd with peg, labs reviewed, on zosyn, vs stable 05/22: is on 2l nc, no bleeding reported, no night sweats Objective Objective Current Medications Medications (Trade) Dose Ordered Sig/Nidhi Route PRN Reason Start Time Stop Time Status Last Admin Dose Admin Acetaminophen (Tylenol) 650 mg Q6H PRN ORAL Mild Pain/Temp > 100.5 05/15/19 09:45 06/14/19 09:44 Acetylcysteine (Mucomyst) 200 mg Q4HRT [facility] 05/15/19 11:00 06/14/19 10:59 05/22/19 07:38 Albuterol/ Ipratropium (Albuterol/ Ipratropium) 3 ml Q4HRT [facility] 05/20/19 12:30 05/25/19 12:29 05/22/19 07:38 Amlodipine Besylate (Norvasc) 10 mg DAILY ORAL 05/16/19 09:00 06/15/19 08:59 05/21/19 09:16 Benztropine Mesylate (Cogentin) 0.5 mg TWICE A DAY ORAL 05/15/19 18:00 06/14/19 17:59 05/21/19 17:44 Dextrose/Sodium Chloride 1,000 ml @ 60 mls/hr [id number] IV 05/15/19 09:45 06/14/19 09:44 05/21/19 05:57 Donepezil HCl (Aricept) 5 mg QHS ORAL 05/15/19 21:00 06/14/19 20:59 05/21/19 20:53 Heparin Sodium (Porcine) (Heparin 5000 units/ml) 5,000 units EVERY 12 HOURS SUBQ 05/15/19 21:00 06/14/19 20:59 05/19/19 21:00 Levetiracetam (Keppra) 1,500 mg Q12HR ORAL 05/15/19 21:00 06/14/19 20:59 05/21/19 20:53 Mirtazapine (Remeron) 7.5 mg BEDTIME ORAL 05/19/19 21:00 06/14/19 20:59 05/21/19 20:53 Ondansetron HCl (Zofran) 4 mg Q8H PRN IVP Nausea & Vomiting 05/15/19 09:45 06/14/19 09:44 Pantoprazole (Protonix) 40 mg DAILY ORAL 05/21/19 09:00 06/20/19 08:59 05/21/19 09:17 Piperacillin Sod/ Tazobactam Sod 3.375 gm/Sodium Chloride 110 ml @ 27.5 mls/hr Q8HR IVPB 05/15/19 14:00 05/26/19 13:59 05/22/19 05:54 Quetiapine Fumarate (SEROqueL) 100 mg TWICE A DAY ORAL 05/15/19 18:00 06/14/19 17:59 05/21/19 17:43 Last 24 Hour Vital Signs Date Time Temp Pulse Resp B/P (MAP) Pulse Ox O2 Delivery O2 Flow Rate FiO2 05/22/19 07:40 99 Nasal Cannula 2.0 28 05/22/19 07:40 103 20 99 Nasal Cannula 2.0 28 101 20 99 05/22/19 04:00 97.7 100 18 142/57 (85) 97 05/22/19 04:00 100 05/22/19 04:00 95 18 97 Nasal Cannula 2.0 28 92 18 95 05/22/19 00:00 98.1 112 18 132/108 (116) 98 05/22/19 00:00 112 05/21/19 23:34 100 18 99 Nasal Cannula 2.0 28 99 18 96 05/21/19 21:00 Nasal Cannula 2.0 05/21/19 20:00 88 05/21/19 20:00 97.9 88 18 135/84 (101) 98 05/21/19 19:42 82 16 98 Nasal Cannula 2.0 28 80 16 97 05/21/19 19:42 97 Nasal Cannula 2.0 28 05/21/19 16:00 72 05/21/19 16:00 97.8 79 17 126/71 (89) 98 05/21/19 14:11 84 18 98 Nasal Cannula 2.0 28 82 18 97 05/21/19 12:00 97.8 77 19 126/83 (97) 98 05/21/19 12:00 83 05/21/19 11:16 93 22 96 05/21/19 10:00 90 18 99 Nasal Cannula 2.0 28 88 18 96 05/21/19 09:40 98.0 93 16 140/96 (111) 98 05/21/19 09:16 93 140/98 05/21/19 09:00 Nasal Cannula 2.0 05/21/19 08:18 96 22 96 05/21/19 08:00 83 05/21/19 07:50 81 22 114/73 96 Nasal Cannula 3 05/21/19 07:40 88 22 110/80 96 Nasal Cannula 3 05/21/19 07:35 97.7 94 22 129/78 96 Nasal Cannula 3 05/21/19 04:00 99.1 95 18 144/87 (106) 98 05/21/19 03:38 96 18 98 Nasal Cannula 2.0 28 94 18 95 05/21/19 03:29 94 05/21/19 00:00 98.1 101 18 128/85 (99) 95 05/20/19 23:44 78 18 100 Nasal Cannula 2.0 28 75 18 97 05/20/19 23:37 100 05/20/19 21:00 Nasal Cannula 2.0 05/20/19 20:13 74 18 100 Nasal Cannula 2.0 28 71 18 97 05/20/19 20:12 97 Nasal Cannula 2.0 28 05/20/19 20:00 97.8 98 19 135/81 (99) 98 05/20/19 19:30 83 05/20/19 16:00 98.6 92 19 131/78 (95) 98 05/20/19 16:00 105 05/20/19 15:32 86 22 100 Nasal Cannula 2.0 28 77 18 95 05/20/19 12:00 98.1 93 19 127/68 (87) 98 05/20/19 12:00 92 Intake and Output 05/21/19 05/22/19 19:00 07:00 Intake Total 0 ml Balance 0 ml Tube Feeding 0 ml # Voids 3 2 Labs Test 05/20/19 07:50 05/21/19 08:20 Prothrombin Time 10.1 SEC (9.30-11.50) Prothromb Time International Ratio 0.9 (0.9-1.1) White Blood Count 11.1 K/UL (4.8-10.8) Red Blood Count 4.75 M/UL (4.70-6.10) Hemoglobin 14.9 G/DL (14.2-18.0) Hematocrit 45.3 % (42.0-52.0) Mean Corpuscular Volume 95 FL (80-99) Mean Corpuscular Hemoglobin 31.4 PG (27.0-31.0) Mean Corpuscular Hemoglobin Concent 33.0 G/DL (32.0-36.0) Red Cell Distribution Width 13.5 % (11.6-14.8) Platelet Count 357 K/UL (150-450) Mean Platelet Volume 5.2 FL (6.5-10.1) Neutrophils (%) (Auto) 70.0 % (45.0-75.0) Lymphocytes (%) (Auto) 15.8 % (20.0-45.0) Monocytes (%) (Auto) 10.9 % (1.0-10.0) Eosinophils (%) (Auto) 1.9 % (0.0-3.0) Basophils (%) (Auto) 1.4 % (0.0-2.0) Sodium Level 144 MMOL/L (136-145) Potassium Level 3.9 MMOL/L (3.5-5.1) Chloride Level 105 MMOL/L (98-107) Carbon Dioxide Level 32 MMOL/L (21-32) Anion Gap 7 mmol/L (5-15) Blood Urea Nitrogen 10 mg/dL (7-18) Creatinine 1.0 MG/DL (0.55-1.30) Estimat Glomerular Filtration Rate mL/min (>60) Glucose Level 116 MG/DL (74-106) Calcium Level 10.1 MG/DL (8.5-10.1) Total Bilirubin 0.4 MG/DL (0.2-1.0) Aspartate Amino Transf (AST/SGOT) 38 U/L (15-37) Alanine Aminotransferase (ALT/SGPT) 35 U/L (12-78) Alkaline Phosphatase 132 U/L (46-116) Total Protein 8.4 G/DL (6.4-8.2) Albumin 3.2 G/DL (3.4-5.0) Globulin 5.2 g/dL Albumin/Globulin Ratio 0.6 (1.0-2.7) Height (Feet): 6 Height (Inches): 0.00 Weight (Pounds): 167 Objective Gen: ill appearing, chronically Pulm: wheezing mild noted b/l, NC+ CV: rrr, no mgr Abd: soft, nt, nd, NG+ Ext: no cce Ignacio Ponce MD May 22, 2019 09:08
--- NOTE | 2019-05-22 09:42 | Infectious Diseases Prog Note ---
Assessment/Plan Assessment/Plan A: Pneumonia secondary to aspiration Atelectasis hypoxemia, hypertension, dementia. Hypercalcemia Fecal impaction Dysphagia s/p GT placement P; Discontinue Zosyn Will f/u abdominal MRI Subjective ROS Limited/Unobtainable: Yes Constitutional: Denies: fever Neurologic: Reports: other - more alert on restraint Allergies: Coded Allergies: PNEUMOCOCCAL VACCINE (Unverified Allergy, Unknown, 10/07/18) Objective Vital Signs Last 24 Hour Vital Signs Date Time Temp Pulse Resp B/P (MAP) Pulse Ox O2 Delivery O2 Flow Rate FiO2 05/22/19 07:40 99 Nasal Cannula 2.0 28 05/22/19 07:40 103 20 99 Nasal Cannula 2.0 28 101 20 99 05/22/19 04:00 97.7 100 18 142/57 (85) 97 05/22/19 04:00 100 05/22/19 04:00 95 18 97 Nasal Cannula 2.0 28 92 18 95 05/22/19 00:00 98.1 112 18 132/108 (116) 98 05/22/19 00:00 112 05/21/19 23:34 100 18 99 Nasal Cannula 2.0 28 99 18 96 05/21/19 21:00 Nasal Cannula 2.0 05/21/19 20:00 88 05/21/19 20:00 97.9 88 18 135/84 (101) 98 05/21/19 19:42 82 16 98 Nasal Cannula 2.0 28 80 16 97 05/21/19 19:42 97 Nasal Cannula 2.0 28 05/21/19 16:00 72 05/21/19 16:00 97.8 79 17 126/71 (89) 98 05/21/19 14:11 84 18 98 Nasal Cannula 2.0 28 82 18 97 05/21/19 12:00 97.8 77 19 126/83 (97) 98 05/21/19 12:00 83 05/21/19 11:16 93 22 96 05/21/19 10:00 90 18 99 Nasal Cannula 2.0 28 88 18 96 Height (Feet): 6 Height (Inches): 0.00 Weight (Pounds): 167 General Appearance: no acute distress HEENT: mucous membranes moist Respiratory/Chest: lungs clear Cardiovascular: tachycardia Abdomen: soft, non tender, other - GT feeding Neurologic/Psychiatric: alert, aphasia Current Medications Medications (Trade) Dose Ordered Sig/Nidhi Route PRN Reason Start Time Stop Time Status Last Admin Dose Admin Acetaminophen (Tylenol) 650 mg Q6H PRN ORAL Mild Pain/Temp > 100.5 05/15/19 09:45 06/14/19 09:44 Acetylcysteine (Mucomyst) 200 mg Q4HRT [facility] 05/15/19 11:00 06/14/19 10:59 05/22/19 07:38 Albuterol/ Ipratropium (Albuterol/ Ipratropium) 3 ml Q4HRT N 05/20/19 12:30 05/25/19 12:29 05/22/19 07:38 Amlodipine Besylate (Norvasc) 10 mg DAILY ORAL 05/16/19 09:00 06/15/19 08:59 05/21/19 09:16 Benztropine Mesylate (Cogentin) 0.5 mg TWICE A DAY ORAL 05/15/19 18:00 06/14/19 17:59 05/21/19 17:44 Dextrose/Sodium Chloride 1,000 ml @ 60 mls/hr [id number] IV 05/15/19 09:45 06/14/19 09:44 05/21/19 05:57 Donepezil HCl (Aricept) 5 mg QHS ORAL 05/15/19 21:00 06/14/19 20:59 05/21/19 20:53 Heparin Sodium (Porcine) (Heparin 5000 units/ml) 5,000 units EVERY 12 HOURS SUBQ 05/15/19 21:00 06/14/19 20:59 05/19/19 21:00 Levetiracetam (Keppra) 1,500 mg Q12HR ORAL 05/15/19 21:00 06/14/19 20:59 05/21/19 20:53 Mirtazapine (Remeron) 7.5 mg BEDTIME ORAL 05/19/19 21:00 06/14/19 20:59 05/21/19 20:53 Ondansetron HCl (Zofran) 4 mg Q8H PRN IVP Nausea & Vomiting 05/15/19 09:45 06/14/19 09:44 Pantoprazole (Protonix) 40 mg DAILY ORAL 05/21/19 09:00 06/20/19 08:59 12/18/19 09:17 Piperacillin Sod/ Tazobactam Sod 3.375 gm/Sodium Chloride 110 ml @ 27.5 mls/hr Q8HR IVPB 05/15/19 14:00 05/26/19 13:59 05/22/19 05:54 Quetiapine Fumarate (SEROqueL) 100 mg TWICE A DAY ORAL 05/15/19 18:00 06/14/19 17:59 05/21/19 17:43 Curtis Farah MD May 22, 2019 09:42
[2019-05-22] MEDS: Benztropine 1mg tab ORAL SCH ×2 (09:54→18:18)
[2019-05-22] MEDS: Heparin 5000 units/ml inj SUBQ SCH ×2 (09:56→21:39)
[2019-05-22] MEDS: D5 1/2NS 1,000 ML IV SCH (09:57)
[2019-05-22 12:00] VITALS: BP 109/64
--- NOTE | 2019-05-22 14:28 | Surgery Progress Note ---
Surgery Progress Note Subjective Additional Comments Patient seen and examined bedside. No acute events. Resting comfortably. Vital stable. No labs. Exam unchanged. MRI completed pending results PEG as per GI Objective Last 24 Hour Vital Signs Date Time Temp Pulse Resp B/P (MAP) Pulse Ox O2 Delivery O2 Flow Rate FiO2 05/22/19 12:00 97.7 80 20 109/64 (79) 98 05/22/19 12:00 97 05/22/19 11:12 101 20 99 Nasal Cannula 1.0 24 99 20 95 05/22/19 09:55 79 133/80 05/22/19 09:00 Nasal Cannula 1.0 05/22/19 08:00 98 05/22/19 08:00 98.7 79 18 133/80 (97) 97 05/22/19 07:40 99 Nasal Cannula 2.0 28 05/22/19 07:40 103 20 99 Nasal Cannula 2.0 28 101 20 99 05/22/19 04:00 97.7 100 18 142/57 (85) 97 05/22/19 04:00 100 05/22/19 04:00 95 18 97 Nasal Cannula 2.0 28 92 18 95 05/22/19 00:00 98.1 112 18 132/108 (116) 98 05/22/19 00:00 112 05/21/19 23:34 100 18 99 Nasal Cannula 2.0 28 99 18 96 05/21/19 21:00 Nasal Cannula 2.0 05/21/19 20:00 88 05/21/19 20:00 97.9 88 18 135/84 (101) 98 05/21/19 19:42 82 16 98 Nasal Cannula 2.0 28 80 16 97 05/21/19 19:42 97 Nasal Cannula 2.0 28 05/21/19 16:00 72 05/21/19 16:00 97.8 79 17 126/71 (89) 98 I&O Intake and Output 05/21/19 05/22/19 19:00 07:00 Intake Total 0 ml Balance 0 ml Tube Feeding 0 ml # Voids 3 2 Dressing: saturated Wound: clean Cardiovascular: RSR, other Respiratory: clear, other Abdomen: soft, non-tender, present bowel sounds, other Extremities: edema, no tenderness, no cyanosis, other Plan Problems: (1) Protein-calorie malnutrition, severe Assessment & Plan: (1) Decubitus skin ulcer Assessment & Plan: Pt presented on admission with DTPI sacrum with surrounding non-blanching erythema over historical scar from previous wound. An area of induration noted to sacrococcygeal area measuring (L)2.5cm x (W)2cm. Non-blanching erythema R heel with an area of fluctuance and maroon at lateral aspect of heel(L)3cm x (W)2.5cm . Pt exhibited agitation when affected area minimally palpated. L heel is boggy with non-blanching erythema. Shaft and penile head including scrotum are erythematous. Pt presented on admission with DTPI sacrum with surrounding non-blanching erythema over historical scar from previous wound. An area of induration noted to sacrococcygeal area measuring (L)2.5cm x (W)2cm. Non-blanching erythema R heel with an area of fluctuance and maroon at lateral aspect of heel(L)3cm x (W)2.5cm . Pt exhibited agitation when affected area minimally palpated. L heel is boggy with non-blanching erythema. Shaft and penile head including scrotum are erythematous. Tx.Plan: Apply Moisture Barrier Paste to sacrum. Cover with Optifoam drsg. Change every 3 days and prn. Apply Triad Paste to penis scrotum and groin areas with each incontinence care. Apply Cavilon Skin Barrier to both heel. Cover each heel with Optifoam drsg. Change every 7 days and prn. Reposition at least every 2hours or as tolerated. Off-load heels with pillow. APM/CHRISTOPHER Mattress overlay. (2) Leukocytosis likely related to pulm infiltrate wounds do not clinically look infected abx for pna pulm input abx as per ID (3) xxx (4) Protein-calorie malnutrition, severe Assessment & Plan: PEG via GI feeds as tolerated (5) Lung mass Assessment & Plan: 2 cm pleural-based masslike opacity containing multiple nodular calcifications andadjacent parenchymal linear density persists in the anterolateral periphery of thelateral segment right middle lobe, unchanged. Adjacent small nodular parenchymaldensities persist, unchanged. Small irregular pleural-based linear densities persist in the dependent portions of both lung bases, unchanged. No new pulmonary parenchymal abnormality demonstrated. No pleural disease is evident. Nodularcalcification in right hilum unchanged. Clustered calcified nodules in the subcarinal region of mediastinum unchanged. No new mediastinal or hilar enlarged lymph nodes. Heart remains normal in size. No pericardial abnormality. Centralmediastinal vasculature remains unremarkable in appearance. noted prior in 2017. no path available cxr noted Rectal distention by feces, could indicate rectal fecal impaction Colonic diverticulosis. No evidence of diverticulitis Ectatic common bile duct. Probably on the basis of senescent changes given active evidence of downstream obstructing lesion, but occult downstream obstructive process not completely excludable. Correlate with liver function tests Basilar pulmonary consolidation and atelectasis. Pneumonia possible. Correlate with clinical findings Satisfactory position of nasogastric tube Right hip prosthesis bowel care enema abx MRCP cont with current care plan Gabino Little May 22, 2019 14:28
--- NOTE | 2019-05-22 14:53 | General Progress Note ---
Assessment/Plan Problem List: (1) PNA (pneumonia) ICD Codes: J18.9 - Pneumonia, unspecified organism SNOMED: 923493938 (2) Fever ICD Codes: R50.9 - Fever, unspecified SNOMED: 110731386 (3) Protein-calorie malnutrition, severe ICD Codes: E43 - Unspecified severe protein-calorie malnutrition SNOMED: 040001456 (4) Dysphagia ICD Codes: R13.10 - Dysphagia, unspecified SNOMED: 12357738, 962712544 (5) Decubitus skin ulcer ICD Codes: L89.90 - Pressure ulcer of unspecified site, unspecified stage SNOMED: 514201629 (6) Schizophrenia ICD Codes: F20.9 - Schizophrenia, unspecified SNOMED: 12798995 (7) Acute febrile illness ICD Codes: R50.9 - Fever, unspecified SNOMED: 284114988 Status: progressing Assessment/Plan: s/p peg once cleared by dr smith can be dc obs malnurished aspiration risk Subjective ROS Limited/Unobtainable: Yes Allergies: Coded Allergies: PNEUMOCOCCAL VACCINE (Unverified Allergy, Unknown, 10/07/18) Objective Last 24 Hour Vital Signs Date Time Temp Pulse Resp B/P (MAP) Pulse Ox O2 Delivery O2 Flow Rate FiO2 05/22/19 12:00 97.7 80 20 109/64 (79) 98 05/22/19 12:00 97 05/22/19 11:12 101 20 99 Nasal Cannula 1.0 24 99 20 95 05/22/19 09:55 79 133/80 05/22/19 09:00 Nasal Cannula 1.0 05/22/19 08:00 98 05/22/19 08:00 98.7 79 18 133/80 (97) 97 05/22/19 07:40 99 Nasal Cannula 2.0 28 05/22/19 07:40 103 20 99 Nasal Cannula 2.0 28 101 20 99 05/22/19 04:00 97.7 100 18 142/57 (85) 97 05/22/19 04:00 100 05/22/19 04:00 95 18 97 Nasal Cannula 2.0 28 92 18 95 05/22/19 00:00 98.1 112 18 132/108 (116) 98 05/22/19 00:00 112 05/21/19 23:34 100 18 99 Nasal Cannula 2.0 28 99 18 96 05/21/19 21:00 Nasal Cannula 2.0 05/21/19 20:00 88 05/21/19 20:00 97.9 88 18 135/84 (101) 98 05/21/19 19:42 82 16 98 Nasal Cannula 2.0 28 80 16 97 05/21/19 19:42 97 Nasal Cannula 2.0 28 05/21/19 16:00 72 05/21/19 16:00 97.8 79 17 126/71 (89) 98 Intake and Output 05/21/19 05/22/19 19:00 07:00 Intake Total 0 ml Balance 0 ml Tube Feeding 0 ml # Voids 3 2 Height (Feet): 6 Height (Inches): 0.00 Weight (Pounds): 167 Cardiovascular: normal rate Respiratory/Chest: lungs clear Konrad Soares MD May 22, 2019 14:53
[2019-05-22 16:00] VITALS: BP 119/70
--- NOTE | 2019-05-22 17:55 | Pulmonology Progress Note ---
Assessment/Plan Assessment/Plan Pulmonary Progress Note HPI Patient is a 69 year old male fpc patient with history of Chronic Obstructive Pulmonary Disease, Chronic Granulomatous Disease, Hypertension, Renal Myolipoma, history of seizures, dementia, encephalopathy, Diverticulosis, noncommunicative, admitted with respiratory distress, patient found to be hypoxic, congested, and more altered. No other history available. Recently discharged, had been treated for Pneumonia, Heel wound, noted to have high fever at [facility]. Also noted to have cough and increased congestion.Patient had prior history of dementia. History is markedly limited by patient's mental status. Awaiting PEG, has NGT Allergies: PNEUMOCOCCAL VACCINE Past Medical History: Chronic Obstructive Pulmonary Disease, Chronic Granulomatous Disease, Hypertension, Diverticulosis, Renal Myolipoma, history of Seizures, history of Dementia, encephalopathy All Other Systems: limited - Not communicative Physical Exam Vital Signs Noted General Appearance: Wasted, Chronically Ill appearing, comfortable Head: normocephalic, atraumatic Eyes: bilateral eye PERRL, bilateral eye EOMI ENT: uvula midline, dry mucus membranes, NGT Neck: supple, thyroid normal, supple/symm/no masses Respiratory: CTAB Cardiovascular: normal peripheral pulses, HS1, HS2, RRR, no edema, no gallop, no murmur, tachycardia Gastrointestinal: non tender, soft, no guarding, no rebound Musculoskeletal: normal inspection Neurologic: awake, chronically altered Skin: no rash, warm/dry Impression: Chronic obstructive pulmonary disease Healthcare-associated pneumonia Heel wounds Dyspnea, Hypoxia Dehydration Chronic Granulomatous Disease with two pleural based partially calcified areas Hypertension Diverticulosis Renal Myolipoma History of Seizures History of Dementia Chronic Encephalopathy Increased Calcium Plan - IV Antibiotics - HHN - O2 PRN - W[employer] Medications - Aspiration 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 Infectious infiltrates not excluded. Clinical correlation/follow-up recommended. CT Abdomen: Lung bases: patchy infiltrates CT Chest: 2 cm pleural-based masslike opacity containing multiple nodular calcifications andadjacent parenchymal linear density persists in the anterolateral periphery of thelateral segment right middle lobe, unchanged. Adjacent small nodular parenchymaldensities persist, unchanged. Small irregular pleural-based linear densities persist in the dependent portions of both lung bases, unchanged. No new pulmonary parenchymal abnormality demonstrated. No pleural disease is evident. Nodularcalcification in right hilum unchanged. Clustered calcified nodules in the subcarinal region of mediastinum unchanged. No new mediastinal or hilar enlarged lymph nodes. Heart remains normal in size. No pericardial abnormality. Centralmediastinal vasculature remains unremarkable in appearance. Subjective ROS Limited/Unobtainable: No Allergies: Coded Allergies: PNEUMOCOCCAL VACCINE (Unverified Allergy, Unknown, 10/07/18) Objective Last 24 Hour Vital Signs Date Time Temp Pulse Resp B/P (MAP) Pulse Ox O2 Delivery O2 Flow Rate FiO2 05/22/19 16:00 96.6 80 20 119/70 (86) 95 05/22/19 16:00 100 05/22/19 15:30 95 20 98 Nasal Cannula 1.0 24 94 20 95 05/22/19 12:00 97.7 80 20 109/64 (79) 98 05/22/19 12:00 97 05/22/19 11:12 101 20 99 Nasal Cannula 1.0 24 99 20 95 05/22/19 09:55 79 133/80 05/22/19 09:00 Nasal Cannula 1.0 05/22/19 08:00 98 05/22/19 08:00 98.7 79 18 133/80 (97) 97 05/22/19 07:40 99 Nasal Cannula 2.0 28 05/22/19 07:40 103 20 99 Nasal Cannula 2.0 28 101 20 99 05/22/19 04:00 97.7 100 18 142/57 (85) 97 05/22/19 04:00 100 05/22/19 04:00 95 18 97 Nasal Cannula 2.0 28 92 18 95 05/22/19 00:00 98.1 112 18 132/108 (116) 98 05/22/19 00:00 112 05/21/19 23:34 100 18 99 Nasal Cannula 2.0 28 99 18 96 05/21/19 21:00 Nasal Cannula 2.0 05/21/19 20:00 88 05/21/19 20:00 97.9 88 18 135/84 (101) 98 05/21/19 19:42 82 16 98 Nasal Cannula 2.0 28 80 16 97 05/21/19 19:42 97 Nasal Cannula 2.0 28 Intake and Output 05/21/19 05/22/19 19:00 07:00 Intake Total 0 ml Balance 0 ml Tube Feeding 0 ml # Voids 3 2 Current Medications Medications (Trade) Dose Ordered Sig/Nidhi Route PRN Reason Start Time Stop Time Status Last Admin Dose Admin Acetaminophen (Tylenol) 650 mg Q6H PRN ORAL Mild Pain/Temp > 100.5 05/15/19 09:45 06/14/19 09:44 Acetylcysteine (Mucomyst) 200 mg Q4HRT N 05/15/19 11:00 06/14/19 10:59 05/22/19 15:00 Albuterol/ Ipratropium (Albuterol/ Ipratropium) 3 ml Q4HRT N 05/20/19 12:30 05/25/19 12:29 05/22/19 15:38 Amlodipine Besylate (Norvasc) 10 mg DAILY ORAL 05/16/19 09:00 06/15/19 08:59 05/22/19 09:55 Benztropine Mesylate (Cogentin) 0.5 mg TWICE A DAY ORAL 05/15/19 18:00 06/14/19 17:59 05/22/19 09:54 Dextrose/Sodium Chloride 1,000 ml @ 60 mls/hr [id number] IV 05/15/19 09:45 06/14/19 09:44 05/22/19 09:57 Donepezil HCl (Aricept) 5 mg QHS ORAL 05/15/19 21:00 06/14/19 20:59 05/21/19 20:53 Heparin Sodium (Porcine) (Heparin 5000 units/ml) 5,000 units EVERY 12 HOURS SUBQ 05/15/19 21:00 06/14/19 20:59 05/22/19 09:56 Levetiracetam (Keppra) 1,500 mg Q12HR ORAL 05/15/19 21:00 06/14/19 20:59 05/22/19 09:55 Mirtazapine (Remeron) 7.5 mg BEDTIME ORAL 05/19/19 21:00 06/14/19 20:59 05/21/19 20:53 Ondansetron HCl (Zofran) 4 mg Q8H PRN IVP Nausea & Vomiting 05/15/19 09:45 06/14/19 09:44 Pantoprazole (Protonix) 40 mg DAILY ORAL 05/21/19 09:00 06/20/19 08:59 05/22/19 09:55 Quetiapine Fumarate (SEROqueL) 100 mg TWICE A DAY ORAL 05/15/19 18:00 06/14/19 17:59 05/22/19 09:54 Porfirio Daniel MD May 22, 2019 17:55
[2019-05-22 20:00] VITALS: BP 114/72
[2019-05-22] MEDS: Donepezil 5mg Tab ORAL SCH (21:40)
--- NOTE | 2019-05-22 22:25 | General Progress Note ---
Assessment/Plan Status: progressing Assessment/Plan: GI: Plan Problems: (1) Dysphagia (2) PEG (percutaneous endoscopic gastrostomy) adjustment/replacement/removal (3) PNA (pneumonia) (4) Protein-calorie malnutrition, severe (5) Dehydration (6) Abnormal LFT, with ectatic CBD on xray Plan NPO TF check MRCP of abdomen abx per ID Subjective Allergies: Coded Allergies: PNEUMOCOCCAL VACCINE (Unverified Allergy, Unknown, 10/07/18) Subjective confused s/p PEG tolerating TF d/w RN Objective Last 24 Hour Vital Signs Date Time Temp Pulse Resp B/P (MAP) Pulse Ox O2 Delivery O2 Flow Rate FiO2 05/22/19 20:00 99.2 98 18 114/72 (86) 98 05/22/19 19:38 96 21 98 Nasal Cannula 2.0 28 97 14 95 05/22/19 19:38 99 Nasal Cannula 2.0 28 05/22/19 16:00 96.6 80 20 119/70 (86) 95 05/22/19 16:00 100 05/22/19 15:30 95 20 98 Nasal Cannula 1.0 24 94 20 95 05/22/19 12:00 97.7 80 20 109/64 (79) 98 05/22/19 12:00 97 05/22/19 11:12 101 20 99 Nasal Cannula 1.0 24 99 20 95 05/22/19 09:55 79 133/80 05/22/19 09:00 Nasal Cannula 1.0 05/22/19 08:00 98 05/22/19 08:00 98.7 79 18 133/80 (97) 97 05/22/19 07:40 99 Nasal Cannula 2.0 28 05/22/19 07:40 103 20 99 Nasal Cannula 2.0 28 101 20 99 05/22/19 04:00 97.7 100 18 142/57 (85) 97 05/22/19 04:00 100 05/22/19 04:00 95 18 97 Nasal Cannula 2.0 28 92 18 95 05/22/19 00:00 98.1 112 18 132/108 (116) 98 05/22/19 00:00 112 05/21/19 23:34 100 18 99 Nasal Cannula 2.0 28 99 18 96 Intake and Output 05/21/19 05/22/19 19:00 07:00 Intake Total 0 ml 0 ml Balance 0 ml 0 ml Tube Feeding 0 ml 0 ml # Voids 3 2 Height (Feet): 6 Height (Inches): 0.00 Weight (Pounds): 167 Objective Elderly AA man NCAT supple CTA RR abd soft, (+)GT no edema OBS Grecia Longoria MD May 22, 2019 22:25
[2019-05-23] VITALS: BP 106/72
[2019-05-23] MEDS: D5 1/2NS 1,000 ML IV SCH (01:05)
[2019-05-23] MEDS: Albuterol/Ipratropium 3ml neb HHN SCH ×3 (03:23→11:34)
[2019-05-23] MEDS: Acetylcysteine 20% Soln 4ml HHN SCH ×3 (03:24→11:34)
[2019-05-23 04:00] VITALS: BP 130/87
[2019-05-23 08:00] VITALS: BP 125/69
[2019-05-23 08:03] LABS: EOSINOPHILS % (AUTO) 2.7 % (0.0-3.0); HEMATOCRIT 41.2 % (42.0-52.0); HEMOGLOBIN 13.5 G/DL (14.2-18.0); LYMPHOCYTES % (AUTO) 22.8 % (20.0-45.0); MEAN CORPUSCULAR VOLUME 95 FL (80-99); MONOCYTES % (AUTO) 11.9 % (1.0-10.0); NEUTROPHILS % (AUTO) 61.6 % (45.0-75.0); PLATELET COUNT 350 K/UL (150-450); RED BLOOD COUNT 4.33 M/UL (4.70-6.10); RED CELL DISTRIBUTION WIDTH 13.3 % (11.6-14.8); WHITE BLOOD COUNT 9.8 K/UL (4.8-10.8)
[2019-05-23 08:20] LABS: ALANINE AMINOTRANSFERASE 30 U/L (12-78); ALBUMIN 2.8 G/DL (3.4-5.0); ALBUMIN/GLOBULIN RATIO 0.6 (1.0-2.7); ALKALINE PHOSPHATASE 119 U/L (46-116); ANION GAP 6 mmol/L (5-15); ASPARTATE AMINO TRANSFERASE 35 U/L (15-37); BILIRUBIN,TOTAL 0.3 MG/DL (0.2-1.0); BLOOD UREA NITROGEN 12 mg/dL (7-18); CALCIUM 9.5 MG/DL (8.5-10.1); CARBON DIOXIDE 32 MMOL/L (21-32); CHLORIDE 105 MMOL/L (98-107); CREATININE 0.9 MG/DL (0.55-1.30); POTASSIUM 3.8 MMOL/L (3.5-5.1); SODIUM 143 MMOL/L (136-145)
--- NOTE | 2019-05-23 08:40 | General Progress Note ---
Assessment/Plan Status: progressing Assessment/Plan: GI: Plan Problems: (1) Dysphagia (2) PEG (percutaneous endoscopic gastrostomy) adjustment/replacement/removal (3) PNA (pneumonia) (4) Protein-calorie malnutrition, severe (5) Dehydration (6) Abnormal LFT, with ectatic CBD on xray Plan NPO by mouth TF via GT check MRCP of abdomen abx per ID Subjective Allergies: Coded Allergies: PNEUMOCOCCAL VACCINE (Unverified Allergy, Unknown, 10/07/18) Subjective confused s/p PEG tolerating TF d/w RN Objective Last 24 Hour Vital Signs Date Time Temp Pulse Resp B/P (MAP) Pulse Ox O2 Delivery O2 Flow Rate FiO2 05/23/19 07:39 97 Nasal Cannula 2.0 28 05/23/19 07:39 94 22 99 Nasal Cannula 2.0 28 91 20 97 05/23/19 04:00 97.8 102 18 130/87 (101) 99 05/23/19 04:00 87 05/23/19 03:24 86 18 98 Nasal Cannula 2.0 28 77 14 94 05/23/19 00:00 99.8 104 18 106/72 (83) 99 05/23/19 00:00 104 05/22/19 22:56 102 25 98 Nasal Cannula 2.0 28 97 14 95 05/22/19 21:00 Nasal Cannula 1.0 05/22/19 20:00 99.2 98 18 114/72 (86) 98 05/22/19 20:00 100 05/22/19 19:38 96 21 98 Nasal Cannula 2.0 28 97 14 95 05/22/19 19:38 99 Nasal Cannula 2.0 28 05/22/19 16:00 96.6 80 20 119/70 (86) 95 05/22/19 16:00 100 05/22/19 15:30 95 20 98 Nasal Cannula 1.0 24 94 20 95 05/22/19 12:00 97.7 80 20 109/64 (79) 98 05/22/19 12:00 97 05/22/19 11:12 101 20 99 Nasal Cannula 1.0 24 99 20 95 05/22/19 09:55 79 133/80 05/22/19 09:00 Nasal Cannula 1.0 Intake and Output 05/22/19 05/23/19 19:00 07:00 Intake Total 310 ml 950 ml Output Total 400 ml Balance -90 ml 950 ml IV Total 420 ml Tube Feeding 310 ml 530 ml Output Urine Total 400 ml # Voids 2 Laboratory Tests 05/23/19 06:29: White Blood Count 9.8, Red Blood Count 4.33L, Hemoglobin 13.5L, Hematocrit 41.2L , Mean Corpuscular Volume 95, Mean Corpuscular Hemoglobin 31.3H, Mean Corpuscular Hemoglobin Concent 32.9, Red Cell Distribution Width 13.3, Platelet Count 350, Mean Platelet Volume 5.5L, Neutrophils (%) (Auto) 61.6, Lymphocytes ( %) (Auto) 22.8, Monocytes (%) (Auto) 11.9H, Eosinophils (%) (Auto) 2.7, Basophils (%) (Auto) 1.0, Sodium Level 143, Potassium Level 3.8, Chloride Level 105, Carbon Dioxide Level 32, Anion Gap 6, Blood Urea Nitrogen 12, Creatinine 0.9, Estimat Glomerular Filtration Rate , Glucose Level 107H, Calcium Level 9.5 , Total Bilirubin 0.3, Aspartate Amino Transf (AST/SGOT) 35, Alanine Aminotransferase (ALT/SGPT) 30, Alkaline Phosphatase 119H, Total Protein 7.6, Albumin 2.8L, Globulin 4.8, Albumin/Globulin Ratio 0.6L Height (Feet): 6 Height (Inches): 0.00 Weight (Pounds): 167 Objective Elderly AA man NCAT supple CTA RR abd soft, (+)GT no edema OBS Grecia Longoria MD May 23, 2019 08:40
[2019-05-23] MEDS: Benztropine 1mg tab ORAL SCH (09:02)
[2019-05-23] MEDS: Heparin 5000 units/ml inj SUBQ SCH (09:04)
--- NOTE | 2019-05-23 10:14 | Infectious Diseases Prog Note ---
Assessment/Plan Assessment/Plan A: Pneumonia secondary to aspiration treated Atelectasis hypoxemia, hypertension, dementia. Hypercalcemia Fecal impaction Dysphagia s/p GT placement P; Observe of antibiotic Subjective ROS Limited/Unobtainable: Yes Constitutional: Denies: fever Allergies: Coded Allergies: PNEUMOCOCCAL VACCINE (Unverified Allergy, Unknown, 10/07/18) Objective Vital Signs Last 24 Hour Vital Signs Date Time Temp Pulse Resp B/P (MAP) Pulse Ox O2 Delivery O2 Flow Rate FiO2 05/23/19 09:03 89 125/69 05/23/19 09:00 Nasal Cannula 2.0 05/23/19 08:00 81 05/23/19 08:00 98.0 89 18 125/69 (87) 99 05/23/19 07:39 97 Nasal Cannula 2.0 28 05/23/19 07:39 94 22 99 Nasal Cannula 2.0 28 91 20 97 05/23/19 04:00 97.8 102 18 130/87 (101) 99 05/23/19 04:00 87 05/23/19 03:24 86 18 98 Nasal Cannula 2.0 28 77 14 94 05/23/19 00:00 99.8 104 18 106/72 (83) 99 05/23/19 00:00 104 05/22/19 22:56 102 25 98 Nasal Cannula 2.0 28 97 14 95 05/22/19 21:00 Nasal Cannula 1.0 05/22/19 20:00 99.2 98 18 114/72 (86) 98 05/22/19 20:00 100 05/22/19 19:38 96 21 98 Nasal Cannula 2.0 28 97 14 95 05/22/19 19:38 99 Nasal Cannula 2.0 28 05/22/19 16:00 96.6 80 20 119/70 (86) 95 05/22/19 16:00 100 05/22/19 15:30 95 20 98 Nasal Cannula 1.0 24 94 20 95 05/22/19 12:00 97.7 80 20 109/64 (79) 98 05/22/19 12:00 97 05/22/19 11:12 101 20 99 Nasal Cannula 1.0 24 99 20 95 Height (Feet): 6 Height (Inches): 0.00 Weight (Pounds): 167 General Appearance: no acute distress HEENT: mucous membranes moist Respiratory/Chest: other - few rhonchi, oxygen by nasal cannula Cardiovascular: normal rate Abdomen: soft, non tender, other - GT feeding Extremities: no edema Neurologic/Psychiatric: disoriented, aphasia Laboratory Tests Test 05/23/19 06:29 White Blood Count 9.8 K/UL (4.8-10.8) Red Blood Count 4.33 M/UL (4.70-6.10) L Hemoglobin 13.5 G/DL (14.2-18.0) L Hematocrit 41.2 % (42.0-52.0) L Mean Corpuscular Volume 95 FL (80-99) Mean Corpuscular Hemoglobin 31.3 PG (27.0-31.0) H Mean Corpuscular Hemoglobin Concent 32.9 G/DL (32.0-36.0) Red Cell Distribution Width 13.3 % (11.6-14.8) Platelet Count 350 K/UL (150-450) Mean Platelet Volume 5.5 FL (6.5-10.1) L Neutrophils (%) (Auto) 61.6 % (45.0-75.0) Lymphocytes (%) (Auto) 22.8 % (20.0-45.0) Monocytes (%) (Auto) 11.9 % (1.0-10.0) H Eosinophils (%) (Auto) 2.7 % (0.0-3.0) Basophils (%) (Auto) 1.0 % (0.0-2.0) Sodium Level 143 MMOL/L (136-145) Potassium Level 3.8 MMOL/L (3.5-5.1) Chloride Level 105 MMOL/L (98-107) Carbon Dioxide Level 32 MMOL/L (21-32) Anion Gap 6 mmol/L (5-15) Blood Urea Nitrogen 12 mg/dL (7-18) Creatinine 0.9 MG/DL (0.55-1.30) Estimat Glomerular Filtration Rate mL/min (>60) Glucose Level 107 MG/DL (74-106) H Calcium Level 9.5 MG/DL (8.5-10.1) Total Bilirubin 0.3 MG/DL (0.2-1.0) Aspartate Amino Transf (AST/SGOT) 35 U/L (15-37) Alanine Aminotransferase (ALT/SGPT) 30 U/L (12-78) Alkaline Phosphatase 119 U/L (46-116) H Total Protein 7.6 G/DL (6.4-8.2) Albumin 2.8 G/DL (3.4-5.0) L Globulin 4.8 g/dL Albumin/Globulin Ratio 0.6 (1.0-2.7) L Current Medications Medications (Trade) Dose Ordered Sig/Nidhi Route PRN Reason Start Time Stop Time Status Last Admin Dose Admin Acetaminophen (Tylenol) 650 mg Q6H PRN ORAL Mild Pain/Temp > 100.5 05/15/19 09:45 06/14/19 09:44 Acetylcysteine (Mucomyst) 200 mg Q4HRT N 05/15/19 11:00 06/14/19 10:59 05/23/19 07:39 Albuterol/ Ipratropium (Albuterol/ Ipratropium) 3 ml Q4HRT [facility] 05/20/19 12:30 05/25/19 12:29 05/23/19 07:39 Amlodipine Besylate (Norvasc) 10 mg DAILY ORAL 05/16/19 09:00 06/15/19 08:59 05/23/19 09:03 Benztropine Mesylate (Cogentin) 0.5 mg TWICE A DAY ORAL 05/15/19 18:00 06/14/19 17:59 05/23/19 09:02 Dextrose/Sodium Chloride 1,000 ml @ 60 mls/hr [id number] IV 05/15/19 09:45 06/14/19 09:44 05/23/19 01:05 Donepezil HCl (Aricept) 5 mg QHS ORAL 05/15/19 21:00 06/14/19 20:59 05/22/19 21:40 Heparin Sodium (Porcine) (Heparin 5000 units/ml) 5,000 units EVERY 12 HOURS SUBQ 05/15/19 21:00 06/14/19 20:59 05/23/19 09:04 Levetiracetam (Keppra) 1,500 mg Q12HR ORAL 05/15/19 21:00 06/14/19 20:59 05/23/19 09:02 Mirtazapine (Remeron) 7.5 mg BEDTIME ORAL 05/19/19 21:00 06/14/19 20:59 05/22/19 21:40 Ondansetron HCl (Zofran) 4 mg Q8H PRN IVP Nausea & Vomiting 05/15/19 09:45 06/14/19 09:44 Pantoprazole (Protonix) 40 mg DAILY ORAL 05/21/19 09:00 06/20/19 08:59 05/23/19 09:03 Quetiapine Fumarate (SEROqueL) 100 mg TWICE A DAY ORAL 05/15/19 18:00 06/14/19 17:59 05/23/19 09:03 Curtis Farah MD May 23, 2019 10:14
--- NOTE | 2019-05-23 11:30 | Hematology/Onc Progress Note ---
Assessment/Plan Assessment/Plan # Hypercalcemia r/o malignancy, r/o myeloma, elevated on admission, may be 2/2 dehydration --> Ca 10.2-->9.5->10.7->9.5, pth is wnl, spep is also wnl as is upep --> on iv fluids as per pcp --> renal eval prn --> pth on prior admission was 42 # Multiple lung nodules -- in 2017 2 cm pleural-based masslike opacity containing multiple nodular calcifications andadjacent parenchymal linear density persists in the anterolateral periphery of thelateral segment right middle lobe, unchanged. Adjacent small nodular parenchymaldensities persist, unchanged. 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 Greatly appreciate consultation! Subjective Constitutional: Denies: no symptoms, chills, fever, malaise, weakness, other HEENT: Denies: no symptoms, eye pain, blurred vision, tearing, double vision, ear pain, ear discharge, nose pain, nose congestion, throat pain, throat swelling, mouth pain, mouth swelling, other Cardiovascular: Denies: no symptoms, chest pain, edema, irregular heart rate, lightheadedness, palpitations, syncope, other Respiratory: Denies: no symptoms, cough, shortness of breath, SOB with excertion, SOB at rest, sputum, wheezing, other Gastrointestinal/Abdominal: Denies: no symptoms, abdomen distended, abdominal pain, black stools, tarry stools, blood in stool, constipated, diarrhea, difficulty swallowing, nausea, poor appetite, poor fluid intake, rectal bleeding , vomiting, other Genitourinary: Denies: no symptoms, burning, discharge, frequency, flank pain, hematuria, incontinence, pain, urgency, other Neurologic/Psychiatric: Denies: no symptoms, anxiety, depressed, emotional problems, headache, numbness, paresthesia, pre-existing deficit, seizure, tingling, tremors, weakness, other Allergies: Coded Allergies: PNEUMOCOCCAL VACCINE (Unverified Allergy, Unknown, 10/07/18) Subjective 05/15 noncommunicative, was here yesterday and readmitted with ams and copd exacerbation, seen by Fredy 05/16: ngt in place, placed yesterday, is on fluids, sleepy this am 05/18: no acute events, no labs today, urine cx negative 05/19: no major bleeding reported, no acute events wbc is 13 05/20: no events, no bleeding, coags reordered for peg Monday 05/21: s/p egd with peg, labs reviewed, on zosyn, vs stable 05/22: is on 2l nc, no bleeding reported, no night sweats 05/23: off abx, dw id, no bleeding or chills noted, not in pain Objective Objective Current Medications Medications (Trade) Dose Ordered Sig/Nidhi Route PRN Reason Start Time Stop Time Status Last Admin Dose Admin Acetaminophen (Tylenol) 650 mg Q6H PRN ORAL Mild Pain/Temp > 100.5 05/15/19 09:45 06/14/19 09:44 Acetylcysteine (Mucomyst) 200 mg Q4HRT [facility] 05/15/19 11:00 06/14/19 10:59 05/23/19 07:39 Albuterol/ Ipratropium (Albuterol/ Ipratropium) 3 ml Q4HRT [facility] 05/20/19 12:30 05/25/19 12:29 05/23/19 07:39 Amlodipine Besylate (Norvasc) 10 mg DAILY ORAL 05/16/19 09:00 06/15/19 08:59 05/23/19 09:03 Benztropine Mesylate (Cogentin) 0.5 mg TWICE A DAY ORAL 05/15/19 18:00 06/14/19 17:59 05/23/19 09:02 Dextrose/Sodium Chloride 1,000 ml @ 60 mls/hr [id number] IV 05/15/19 09:45 06/14/19 09:44 05/23/19 01:05 Donepezil HCl (Aricept) 5 mg QHS ORAL 05/15/19 21:00 06/14/19 20:59 05/22/19 21:40 Heparin Sodium (Porcine) (Heparin 5000 units/ml) 5,000 units EVERY 12 HOURS SUBQ 05/15/19 21:00 06/14/19 20:59 05/23/19 09:04 Levetiracetam (Keppra) 1,500 mg Q12HR ORAL 05/15/19 21:00 06/14/19 20:59 05/23/19 09:02 Mirtazapine (Remeron) 7.5 mg BEDTIME ORAL 05/19/19 21:00 06/14/19 20:59 05/22/19 21:40 Ondansetron HCl (Zofran) 4 mg Q8H PRN IVP Nausea & Vomiting 05/15/19 09:45 06/14/19 09:44 Pantoprazole (Protonix) 40 mg DAILY ORAL 05/21/19 09:00 06/20/19 08:59 05/23/19 09:03 Quetiapine Fumarate (SEROqueL) 100 mg TWICE A DAY ORAL 05/15/19 18:00 06/14/19 17:59 05/23/19 09:03 Last 24 Hour Vital Signs Date Time Temp Pulse Resp B/P (MAP) Pulse Ox O2 Delivery O2 Flow Rate FiO2 05/23/19 09:03 89 125/69 05/23/19 09:00 Nasal Cannula 2.0 05/23/19 08:00 81 05/23/19 08:00 98.0 89 18 125/69 (87) 99 05/23/19 07:39 97 Nasal Cannula 2.0 28 05/23/19 07:39 94 22 99 Nasal Cannula 2.0 28 91 20 97 05/23/19 04:00 97.8 102 18 130/87 (101) 99 05/23/19 04:00 87 05/23/19 03:24 86 18 98 Nasal Cannula 2.0 28 77 14 94 05/23/19 00:00 99.8 104 18 106/72 (83) 99 05/23/19 00:00 104 05/22/19 22:56 102 25 98 Nasal Cannula 2.0 28 97 14 95 05/22/19 21:00 Nasal Cannula 1.0 05/22/19 20:00 99.2 98 18 114/72 (86) 98 05/22/19 20:00 100 05/22/19 19:38 96 21 98 Nasal Cannula 2.0 28 97 14 95 05/22/19 19:38 99 Nasal Cannula 2.0 28 05/22/19 16:00 96.6 80 20 119/70 (86) 95 05/22/19 16:00 100 05/22/19 15:30 95 20 98 Nasal Cannula 1.0 24 94 20 95 05/22/19 12:00 97.7 80 20 109/64 (79) 98 05/22/19 12:00 97 05/22/19 11:12 101 20 99 Nasal Cannula 1.0 24 99 20 95 05/22/19 09:55 79 133/80 05/22/19 09:00 Nasal Cannula 1.0 05/22/19 08:00 98 05/22/19 08:00 98.7 79 18 133/80 (97) 97 05/22/19 07:40 99 Nasal Cannula 2.0 28 05/22/19 07:40 103 20 99 Nasal Cannula 2.0 28 101 20 99 05/22/19 04:00 97.7 100 18 142/57 (85) 97 05/22/19 04:00 100 05/22/19 04:00 95 18 97 Nasal Cannula 2.0 28 92 18 95 05/22/19 00:00 98.1 112 18 132/108 (116) 98 05/22/19 00:00 112 05/21/19 23:34 100 18 99 Nasal Cannula 2.0 28 99 18 96 05/21/19 21:00 Nasal Cannula 2.0 05/21/19 20:00 88 05/21/19 20:00 97.9 88 18 135/84 (101) 98 05/21/19 19:42 82 16 98 Nasal Cannula 2.0 28 80 16 97 12/18/19 19:42 97 Nasal Cannula 2.0 28 05/21/19 16:00 72 05/21/19 16:00 97.8 79 17 126/71 (89) 98 05/21/19 14:11 84 18 98 Nasal Cannula 2.0 28 82 18 97 05/21/19 12:00 97.8 77 19 126/83 (97) 98 05/21/19 12:00 83 Intake and Output 05/22/19 05/23/19 18:59 06:59 Intake Total 270 ml 990 ml Output Total 400 ml Balance -130 ml 990 ml IV Total 420 ml Tube Feeding 270 ml 570 ml Output Urine Total 400 ml # Voids 2 Labs Test 05/21/19 08:20 05/23/19 06:29 White Blood Count 11.1 K/UL (4.8-10.8) 9.8 K/UL (4.8-10.8) Red Blood Count 4.75 M/UL (4.70-6.10) 4.33 M/UL (4.70-6.10) Hemoglobin 14.9 G/DL (14.2-18.0) 13.5 G/DL (14.2-18.0) Hematocrit 45.3 % (42.0-52.0) 41.2 % (42.0-52.0) Mean Corpuscular Volume 95 FL (80-99) 95 FL (80-99) Mean Corpuscular Hemoglobin 31.4 PG (27.0-31.0) 31.3 PG (27.0-31.0) Mean Corpuscular Hemoglobin Concent 33.0 G/DL (32.0-36.0) 32.9 G/DL (32.0-36.0) Red Cell Distribution Width 13.5 % (11.6-14.8) 13.3 % (11.6-14.8) Platelet Count 357 K/UL (150-450) 350 K/UL (150-450) Mean Platelet Volume 5.2 FL (6.5-10.1) 5.5 FL (6.5-10.1) Neutrophils (%) (Auto) 70.0 % (45.0-75.0) 61.6 % (45.0-75.0) Lymphocytes (%) (Auto) 15.8 % (20.0-45.0) 22.8 % (20.0-45.0) Monocytes (%) (Auto) 10.9 % (1.0-10.0) 11.9 % (1.0-10.0) Eosinophils (%) (Auto) 1.9 % (0.0-3.0) 2.7 % (0.0-3.0) Basophils (%) (Auto) 1.4 % (0.0-2.0) 1.0 % (0.0-2.0) Sodium Level 144 MMOL/L (136-145) 143 MMOL/L (136-145) Potassium Level 3.9 MMOL/L (3.5-5.1) 3.8 MMOL/L (3.5-5.1) Chloride Level 105 MMOL/L (98-107) 105 MMOL/L (98-107) Carbon Dioxide Level 32 MMOL/L (21-32) 32 MMOL/L (21-32) Anion Gap 7 mmol/L (5-15) 6 mmol/L (5-15) Blood Urea Nitrogen 10 mg/dL (7-18) 12 mg/dL (7-18) Creatinine 1.0 MG/DL (0.55-1.30) 0.9 MG/DL (0.55-1.30) Estimat Glomerular Filtration Rate mL/min (>60) mL/min (>60) Glucose Level 116 MG/DL (74-106) 107 MG/DL (74-106) Calcium Level 10.1 MG/DL (8.5-10.1) 9.5 MG/DL (8.5-10.1) Total Bilirubin 0.4 MG/DL (0.2-1.0) 0.3 MG/DL (0.2-1.0) Aspartate Amino Transf (AST/SGOT) 38 U/L (15-37) 35 U/L (15-37) Alanine Aminotransferase (ALT/SGPT) 35 U/L (12-78) 30 U/L (12-78) Alkaline Phosphatase 132 U/L (46-116) 119 U/L (46-116) Total Protein 8.4 G/DL (6.4-8.2) 7.6 G/DL (6.4-8.2) Albumin 3.2 G/DL (3.4-5.0) 2.8 G/DL (3.4-5.0) Globulin 5.2 g/dL 4.8 g/dL Albumin/Globulin Ratio 0.6 (1.0-2.7) 0.6 (1.0-2.7) Height (Feet): 6 Height (Inches): 0.00 Weight (Pounds): 167 Objective Gen: ill appearing, chronically Pulm: wheezing mild noted b/l, NC+ CV: rrr, no mgr Abd: soft, nt, nd, NG+ Ext: no cce Ignacio Ponce MD May 23, 2019 11:29
[2019-05-23 12:00] VITALS: BP 128/71
[2019-05-23 13:10] VITALS: BP 134/81
--- NOTE | 2019-05-23 15:32 | Diagnostic Imaging Report ---
Indication: Abnormal liver function tests, abnormal common bile duct on recent CT scan, protein calorie malnutrition Technique: Coronal and axial single shot fast spin-echo breath-hold, axial T2 FRFSE, 2-D thick slab MRCP, AXIAL 2-D FIESTA fat saturated, axial 3-D dual echo breath-hold, water weighted axial LAVA FLEX, revealed 3-D MRCP images were obtained of the abdomen. MIP reconstructions were generated of the bile ducts Comparison: No comparison MRI. Reference made to CT scan dated 05/16/2019 Findings: The gallbladder is unremarkable in appearance, without any filling defects to suggest calculi. No wall thickening or pericholecystic fluid or inflammation demonstrated. The extrahepatic bile ducts are dilated, with the common bile duct measuring up to 13 mm in diameter. No intraluminal filling defects are demonstrated. No obstructive pancreatic mass or ampullary mass demonstrated. The pancreatic duct is slightly prominent. The liver, pancreas, spleen, adrenals, left kidney are unremarkable. The right kidney demonstrates a tiny cyst. A gastrostomy is noted. Position of this appears to be satisfactory. This is new since prior CT scan Impression: Dilated extrahepatic bile ducts, without definite evidence of downstream obstructive lesion or obstructing calculus. Normal gallbladder Incidental finding of tiny right renal cyst Gastrostomy, new since prior CT scan of 05/16/2019
--- NOTE | 2019-05-23 22:10 | Surgery Progress Note ---
Surgery Progress Note Subjective Additional Comments No acute events. Leukocytosis resolved improving. Abdominal MRI noted and reviewed. Discharge planning for today. Late entry as patient was seen earlier this morning. Objective Last 24 Hour Vital Signs Date Time Temp Pulse Resp B/P (MAP) Pulse Ox O2 Delivery O2 Flow Rate FiO2 05/23/19 13:10 97.4 84 18 134/81 (98) 97 05/23/19 12:00 05/23/19 12:00 97.5 87 18 128/71 (90) 96 05/23/19 11:52 99 22 99 Nasal Cannula 2.0 28 104 20 96 05/23/19 09:03 89 125/69 05/23/19 09:00 Nasal Cannula 2.0 05/23/19 08:00 81 05/23/19 08:00 98.0 89 18 125/69 (87) 99 05/23/19 07:39 97 Nasal Cannula 2.0 28 05/23/19 07:39 94 22 99 Nasal Cannula 2.0 28 91 20 97 05/23/19 04:00 97.8 102 18 130/87 (101) 99 05/23/19 04:00 87 05/23/19 03:24 86 18 98 Nasal Cannula 2.0 28 77 14 94 05/23/19 00:00 99.8 104 18 106/72 (83) 99 05/23/19 00:00 104 05/22/19 22:56 102 25 98 Nasal Cannula 2.0 28 97 14 95 I&O Intake and Output 05/22/19 05/23/19 19:00 07:00 Intake Total 310 ml 950 ml Output Total 400 ml Balance -90 ml 950 ml IV Total 420 ml Tube Feeding 310 ml 530 ml Output Urine Total 400 ml # Voids 2 Cardiovascular: RSR Respiratory: clear Abdomen: soft, non-tender, present bowel sounds, other Extremities: no tenderness, no cyanosis Laboratory Tests Test 05/23/19 06:29 White Blood Count 9.8 K/UL (4.8-10.8) Red Blood Count 4.33 M/UL (4.70-6.10) L Hemoglobin 13.5 G/DL (14.2-18.0) L Hematocrit 41.2 % (42.0-52.0) L Mean Corpuscular Volume 95 FL (80-99) Mean Corpuscular Hemoglobin 31.3 PG (27.0-31.0) H Mean Corpuscular Hemoglobin Concent 32.9 G/DL (32.0-36.0) Red Cell Distribution Width 13.3 % (11.6-14.8) Platelet Count 350 K/UL (150-450) Mean Platelet Volume 5.5 FL (6.5-10.1) L Neutrophils (%) (Auto) 61.6 % (45.0-75.0) Lymphocytes (%) (Auto) 22.8 % (20.0-45.0) Monocytes (%) (Auto) 11.9 % (1.0-10.0) H Eosinophils (%) (Auto) 2.7 % (0.0-3.0) Basophils (%) (Auto) 1.0 % (0.0-2.0) Sodium Level 143 MMOL/L (136-145) Potassium Level 3.8 MMOL/L (3.5-5.1) Chloride Level 105 MMOL/L (98-107) Carbon Dioxide Level 32 MMOL/L (21-32) Anion Gap 6 mmol/L (5-15) Blood Urea Nitrogen 12 mg/dL (7-18) Creatinine 0.9 MG/DL (0.55-1.30) Estimat Glomerular Filtration Rate mL/min (>60) Glucose Level 107 MG/DL (74-106) H Calcium Level 9.5 MG/DL (8.5-10.1) Total Bilirubin 0.3 MG/DL (0.2-1.0) Aspartate Amino Transf (AST/SGOT) 35 U/L (15-37) Alanine Aminotransferase (ALT/SGPT) 30 U/L (12-78) Alkaline Phosphatase 119 U/L (46-116) H Total Protein 7.6 G/DL (6.4-8.2) Albumin 2.8 G/DL (3.4-5.0) L Globulin 4.8 g/dL Albumin/Globulin Ratio 0.6 (1.0-2.7) L Plan Problems: (1) Protein-calorie malnutrition, severe Assessment & Plan: (1) Decubitus skin ulcer Assessment & Plan: Pt presented on admission with DTPI sacrum with surrounding non-blanching erythema over historical scar from previous wound. An area of induration noted to sacrococcygeal area measuring (L)2.5cm x (W)2cm. Non-blanching erythema R heel with an area of fluctuance and maroon at lateral aspect of heel(L)3cm x (W)2.5cm . Pt exhibited agitation when affected area minimally palpated. L heel is boggy with non-blanching erythema. Shaft and penile head including scrotum are erythematous. Pt presented on admission with DTPI sacrum with surrounding non-blanching erythema over historical scar from previous wound. An area of induration noted to sacrococcygeal area measuring (L)2.5cm x (W)2cm. Non-blanching erythema R heel with an area of fluctuance and maroon at lateral aspect of heel(L)3cm x (W)2.5cm . Pt exhibited agitation when affected area minimally palpated. L heel is boggy with non-blanching erythema. Shaft and penile head including scrotum are erythematous. Tx.Plan: Apply Moisture Barrier Paste to sacrum. Cover with Optifoam drsg. Change every 3 days and prn. Apply Triad Paste to penis scrotum and groin areas with each incontinence care. Apply Cavilon Skin Barrier to both heel. Cover each heel with Optifoam drsg. Change every 7 days and prn. Reposition at least every 2hours or as tolerated. Off-load heels with pillow. APM/CHRISTOPHER Mattress overlay. (2) Leukocytosis likely related to pulm infiltrate wounds do not clinically look infected abx for pna pulm input abx as per ID (3) xxx (4) Protein-calorie malnutrition, severe Assessment & Plan: PEG via GI feeds as tolerated (5) Lung mass Assessment & Plan: 2 cm pleural-based masslike opacity containing multiple nodular calcifications andadjacent parenchymal linear density persists in the anterolateral periphery of thelateral segment right middle lobe, unchanged. Adjacent small nodular parenchymaldensities persist, unchanged. Small irregular pleural-based linear densities persist in the dependent portions of both lung bases, unchanged. No new pulmonary parenchymal abnormality demonstrated. No pleural disease is evident. Nodularcalcification in right hilum unchanged. Clustered calcified nodules in the subcarinal region of mediastinum unchanged. No new mediastinal or hilar enlarged lymph nodes. Heart remains normal in size. No pericardial abnormality. Centralmediastinal vasculature remains unremarkable in appearance. noted prior in 2017. no path available cxr noted Rectal distention by feces, could indicate rectal fecal impaction Colonic diverticulosis. No evidence of diverticulitis Ectatic common bile duct. Probably on the basis of senescent changes given active evidence of downstream obstructing lesion, but occult downstream obstructive process not completely excludable. Correlate with liver function tests Basilar pulmonary consolidation and atelectasis. Pneumonia possible. Correlate with clinical findings Satisfactory position of nasogastric tube Right hip prosthesis bowel care enema abx MRCP cont with current care plan Findings: The gallbladder is unremarkable in appearance, without any filling defects to suggest calculi. No wall thickening or pericholecystic fluid or inflammation demonstrated. The extrahepatic bile ducts are dilated, with the common bile duct measuring up to 13 mm in diameter. No intraluminal filling defects are demonstrated. No obstructive pancreatic mass or ampullary mass demonstrated. The pancreatic duct is slightly prominent. The liver, pancreas, spleen, adrenals, left kidney are unremarkable. The right kidney demonstrates a tiny cyst. A gastrostomy is noted. Position of this appears to be satisfactory. This is new since prior CT scan Impression: Dilated extrahepatic bile ducts, without definite evidence of downstream obstructive lesion or obstructing calculus. Normal gallbladder Incidental finding of tiny right renal cyst Gastrostomy, new since prior CT scan of 05/16/2019 Gabino Little May 23, 2019 22:10
--- NOTE | 2019-05-24 18:25 | Discharge Summary ---
Discharge Summary Discharge Summary _ DATE OF ADMISSION: 05/15/2019 DATE OF DISCHARGE: 05/23/2019 DISCHARGED BY: Dr. Konrad Torres CONSULTANTS: Dr. Gabino Altman BRIEF HOSPITAL COURSE: Patient is a 69-year-old male, brought in by basic ambulance after increased fever and cough. Patient had recent hospitalization for COPD exacerbation. He had recently been on antibiotics. He was noted to have increased temperature up to 102 degrees. Patient had been having increased congestion.Patient had prior history of dementia. History is markedly limited by patient's mental status. Upon evaluation at ED, blood work showed slight leukocytosis. Hemoglobin and hematocrit were stable. Chest x-ray showed lung infiltrates. He was started on IV fluids and IV antibiotics. He was admitted for evaluation of pneumonia. [employer] Machine Operator was consulted. He was given O2 support. He was placed on nebulizer treatment. Strict aspiration precautions. Chest x-ray showed low lung volumes with streaky airspace opacities at the bilateral bases which may be related to expiratory atelectasis. Infectious infiltrates not excluded. CT scan showed a 2 cm pleural-based masslike opacity containing multiple nodular calcifications and adjacent parenchymal linear density persist in the Brennen lateral periphery of the lateral segment right middle lobe. Nodular parenchymal density persists. Nodular calcification in the right hilum unchanged. He was given doxycycline and Zosyn. GI was consulted for PEG evaluation. Patient was recommended to remain n.p.o., given possibility of silent aspiration due to underlying dementia. NG tube was inserted. She was started on g tube feeding. POLST reviewed and noted only trials for artificial feeding. No long-term artificial feeding. He was noted to have hypercalcemia of 10.2. PTH on prior admission was normal at 42. SPEP and UPEP were normal. Patient had sinus tachycardia, resolved with hydration. Echocardiogram revealed normal LV systolic and diastolic function. LVEF 65% with normal intracardiac filling pressure. He was given amlodipine for hypertension. He was noted to have deep tissue pressure injury in the sacrum. There was an area of induration noted to the sacrococcygeal area. Nonblanching erythema to the right heel. Left heel boggy with nonblanching erythema. Genital area erythematous. He was given local wound care. He was placed on APM/CHRISTOPHER overlay mattress with frequent repositioning and offloading. Wounds did not look clinically infected. Patient has severe protein calorie malnutrition. Nutrition optimized. Patient pulled out G-tube. Unable to replace given agitation. Daughter requested to proceed with PEG tube placement. On 05/24/2019, he underwent upper GI endoscopy with biopsy as well as G-tube placement. Findings showed half centimeter gastric ulcer in the proximal stomach. Mild esophageal diverticulum. Diminutive polyp in the fundus of the stomach, status post biopsy removal. Patient was tolerating G-tube. He had abnormal LFTs with ectatic CBD on x-ray. MRCP showed dilated extrahepatic bile ducts, without definite evidence of downstream obstructive lesion or obstructing calculus. Normal gallbladder. He was eventually discharged back to care home. FINAL DIAGNOSES: Pneumonia secondary to aspiration Dementia Fecal impaction Dysphagia status post G-tube placement Dehydration Abnormal LFT COPD Diverticulosis Gastric ulcer Schizophrenia Hypercalcemia, may be secondary to dehydration Multiple lung nodules Coagulopathy Hypertension Severe protein calorie malnutrition Decubitus ulcer, present on admission DISPOSITION: DC to SNF DISCHARGE MEDICATIONS: Refer to Discharge Medication List. I have been assigned to complete a discharge summary on this account, I was not involved with the patient's management.--MEENU Rose Jacqueline Robles NP May 24, 2019 18:25
== END 2019-05-23 13:15 | DRG 177 ==
LOC: EDBD 03:55 → EMR 04:39 → 2E 05:37 → EDBEDREQ 06:12 → OBSVTOIN 10:15
PROC: 0DB68ZX Excision of Stomach, Via Natural or Artificial Opening Endoscopic, Diagnostic (ICD-10-PCS; principal; 2019-05-21 07:06)
DX: J69.0 Pneumonitis due to inhalation of food and vomit (principal); E43 Unspecified severe protein-calorie malnutrition; J44.1 Chronic obstructive pulmonary disease with (acute) exacerbation; D68.9 Coagulation defect, unspecified; G93.40 Encephalopathy, unspecified; I11.0 Hypertensive heart disease with heart failure; G40.909 Epilepsy, unspecified, not intractable, without status epilepticus; F09 Unspecified mental disorder due to known physiological condition; F39 Unspecified mood [affective] disorder; F20.9 Schizophrenia, unspecified; Z68.22 Body mass index [BMI] 22.0-22.9, adult; R91.8 Other nonspecific abnormal finding of lung field; E83.52 Hypercalcemia; R09.02 Hypoxemia; R00.0 Tachycardia, unspecified; R13.10 Dysphagia, unspecified; E86.0 Dehydration; R62.7 Adult failure to thrive; K56.41 Fecal impaction; K25.9 Gastric ulcer, unspecified as acute or chronic, without hemorrhage or perforation; K31.7 Polyp of stomach and duodenum; K57.90 Diverticulosis of intestine, part unspecified, without perforation or abscess without bleeding; L89.159 Pressure ulcer of sacral region, unspecified stage
CPT/HCPCS: 36415; 71045; 74018; 74177; 74181; 80053; 80299; 81003; 83605; 83880; 84484; 85025; 85610; 85651; 85730; 86140; 86710; 87040; 87081; 87086; 93005; 93306; 93970; 94003; 94150; 94640; 94664; 96365; 96368; 99285; J3490; J7620

== ENCOUNTER 2019-09-30 12:32 | Inpatient (IN) | payer MEDICARE, MEDICAID ==
[~2019-09-30] VITALS: Ht 182.9 cm; Wt 84.4 kg
[~2019-09-30 12:32] MED LIST changes: +AMLODIPINE BESY10 MG GT; -AMLODIPINE BESY10 MG ORAL; +DONEPEZIL HCL5 M2 GT; -DONEPEZIL HCL5 M2 ORAL; +KEPPRA100 MG/1 M GT; -KEPPRA100 MG/1 M PO; +KEPPRA500 M4 ORAL; +MOM30 ML GT; -MOM30 ML ORAL
[2019-09-30] MEDS ORDERED: Acetaminophen 500mg (ES) tab ORAL ONE (12:45)
[2019-09-30] MEDS ORDERED: DOCUSATE SODIU100 MG ORAL (12:50)
[2019-09-30] MEDS ORDERED: ASCORBIC ACID500 MG ORAL (12:50)
[2019-09-30] MEDS ORDERED: FAMOTIDINE20 MG GT (12:50)
[2019-09-30] MEDS ORDERED: ACETAMINOPHEN325 M1 GT (12:50)
[2019-09-30] MEDS ORDERED: KEPPRA500 M4 ORAL (12:50)
[2019-09-30] MEDS ORDERED: LOVENOX10 M4 SUBQ (12:50)
[2019-09-30] MEDS ORDERED: CATAPRES0.1 MG GT (12:50)
[2019-09-30] MEDS ORDERED: FERROUS SULFAT325 MG GT (12:50)
[2019-09-30] MEDS ORDERED: HUMALOG100 UNIT/3 SUBQ (12:50)
[2019-09-30] MEDS ORDERED: HEPARIN SO5000 UNIT2 SUBQ (12:50)
[2019-09-30] MEDS ORDERED: ZYVOX600 MG PEG (12:50)
[2019-09-30] MEDS ORDERED: DONEPEZIL HCL5 M2 ORAL (12:50)
--- NOTE | 2019-09-30 13:35 | Emergency Room Report ---
History of Present Illness General Chief Complaint: General Complaint Source: Patient (Jose Hay MD) Present Illness HPI 69-year-old male presents ED for evaluation of fever, tachycardia. [facility]. Symptoms started x1 day. Patient nonverbal at baseline. Unable to provide any additional history at this time. Concern for COVID at facility. Patient currently being treated for pneumonia. No signs of distress on arrival. No other aggravating relieving factors. No other associated symptoms (Jose Hay MD) Allergies: Coded Allergies: PNEUMOCOCCAL VACCINE (Unverified Allergy, Unknown, 10/07/18) Uncoded Allergies: PNA VACCINE (Allergy, Unknown, 09/30/19) COVID-19 Screening Contact w/high risk pt: No Recent Travel to affected area: No Experienced COVID-19 symptoms?: No (Jose Hay MD) Patient History Past Medical History: DM, HTN, COPD, dementia, psych hx Past Surgical History: pacemaker Pertinent Family History: none Social History: Denies: smoking, alcohol use, drug use Immunizations: UTD Reviewed Nursing Documentation: PMH: Agreed; PSxH: Agreed (Jose Hay MD) Nursing Documentation-PMH Past Medical History: No History, Except For Hx Cardiac Problems: No Hx Hypertension: Yes Hx Pacemaker: Yes Hx COPD: Yes Hx Diabetes: Yes Hx Cancer: No Hx Gastrointestinal Problems: Yes History Of Psychiatric Problem: Yes - dementia, depression, Hx Neurological Problems: Yes - Altered Mental Status. Hx Dementia: Yes - Unspecified, without behavioral disturbance Hx Seizures: Yes Hx Epilepsy: Yes - Unspecified, not intractable, without status epilepticus Hx Syncope: Yes (Jose Hay MD) Review of Systems All Other Systems: limited (Jose Hay MD) Physical Exam Vital Signs Date Time Temp Pulse Resp B/P (MAP) Pulse Ox O2 Delivery O2 Flow Rate FiO2 09/30/19 12:28 100.6 135 36 140/98 (112) 97 Room Air Sp02 EP Interpretation: reviewed, normal General Appearance: no apparent distress, non-toxic, lethargic, thin Head: normocephalic, atraumatic Eyes: bilateral eye normal inspection, bilateral eye PERRL ENT: hearing grossly normal, normal pharynx, no angioedema, normal voice Neck: full range of motion, supple/symm/no masses Respiratory: chest non-tender, crackles, speaking full sentences Cardiovascular #1: no edema, tachycardia Cardiovascular #2: 2+ carotid (R), 2+ carotid (L), 2+ radial (R), 2+ radial (L) , 2+ dorsalis pedis (R), 2+ dorsalis pedis (L) Gastrointestinal: normal bowel sounds, non tender, soft, non-distended, no guarding, no rebound Rectal: deferred Genitourinary: normal inspection, no CVA tenderness Musculoskeletal: back normal, normal range of motion, non-tender Neurologic: other - nonverbal Psychiatric: other - nonverbal Reflexes: 3+ bicep (R), 3+ bicep (L), 3+ tricep (R), 3+ tricep (L), 3+ knee (R) , 3+ knee (L) Skin: no rash Lymphatic: no adenopathy (Jose Hay MD) Procedures Critical Care Time Critical Care Time 70 minutes for multiple re-evaluations, presentation concerning for covid-19 with multiple comorbidities, concerning for acute possible decompensation and possible not including any procedural time, (Konrad Hyman DO) Medical Decision Making Diagnostic Impression: Primary Impression: PNA (pneumonia) Additional Impression: Suspected COVID-19 virus infection ER Course Please refer to the initial history exam and presentation Do agree with the history and exam At this time patient's blood work shows significant abnormal finding including Elevated white blood cell count chest x-ray is concerning for Pneumonia given the patient's status and the current environment consideration for covid-19 Is elevated patient initiated on antibiotics and requires further inpatient care In guarded condition Labs Test 09/30/19 13:00 White Blood Count 28.2 K/UL (4.8-10.8) Red Blood Count 3.57 M/UL (4.70-6.10) Hemoglobin 11.7 G/DL (14.2-18.0) Hematocrit 35.6 % (42.0-52.0) Mean Corpuscular Volume 100 FL (80-99) Mean Corpuscular Hemoglobin 32.7 PG (27.0-31.0) Mean Corpuscular Hemoglobin Concent 32.8 G/DL (32.0-36.0) Red Cell Distribution Width 14.6 % (11.6-14.8) Platelet Count 507 K/UL (150-450) Mean Platelet Volume 5.1 FL (6.5-10.1) Neutrophils (%) (Auto) % (45.0-75.0) Lymphocytes (%) (Auto) % (20.0-45.0) Monocytes (%) (Auto) % (1.0-10.0) Eosinophils (%) (Auto) % (0.0-3.0) Basophils (%) (Auto) % (0.0-2.0) Differential Total Cells Counted 100 Neutrophils % (Manual) 85 % (45-75) Lymphocytes % (Manual) 10 % (20-45) Monocytes % (Manual) 5 % (1-10) Eosinophils % (Manual) 0 % (0-3) Basophils % (Manual) 0 % (0-2) Band Neutrophils 0 % (0-8) Platelet Estimate Adequate Platelet Morphology Normal Red Blood Cell Morphology Normal Urine Color Yellow Urine Appearance Clear Urine pH 8 (4.5-8.0) Urine Specific [place] 1.015 (1.005-1.035) Urine Protein 2+ (NEGATIVE) Urine Glucose (UA) Negative (NEGATIVE) Urine Ketones Negative (NEGATIVE) Urine Blood Negative (NEGATIVE) Urine Nitrite Negative (NEGATIVE) Urine Bilirubin Negative (NEGATIVE) Urine Urobilinogen Normal MG/DL (0.0-1.0) Urine Leukocyte Esterase 1+ (NEGATIVE) Urine RBC 0-2 /HPF (0 - 0) Urine WBC 2-4 /HPF (0 - 0) Urine Squamous Epithelial Cells Occasional /LPF Urine Bacteria Occasional /HPF (NONE) Sodium Level 152 MMOL/L (136-145) Potassium Level 4.0 MMOL/L (3.5-5.1) Chloride Level 107 MMOL/L (98-107) Carbon Dioxide Level 37 MMOL/L (21-32) Anion Gap 9 mmol/L (5-15) Blood Urea Nitrogen 25 mg/dL (7-18) Creatinine 0.8 MG/DL (0.55-1.30) Estimat Glomerular Filtration Rate > 60 mL/min (>60) Glucose Level 149 MG/DL (74-106) Lactic Acid Level 1.10 mmol/L (0.4-2.0) Calcium Level 10.7 MG/DL (8.5-10.1) Total Bilirubin 0.3 MG/DL (0.2-1.0) Aspartate Amino Transf (AST/SGOT) 36 U/L (15-37) Alanine Aminotransferase (ALT/SGPT) 26 U/L (12-78) Alkaline Phosphatase 147 U/L (46-116) Troponin I 0.015 ng/mL (0.000-0.056) Pro-B-Type Natriuretic Peptide 392 pg/mL (0-125) Total Protein 9.0 G/DL (6.4-8.2) Albumin 2.8 G/DL (3.4-5.0) Globulin 6.2 g/dL Albumin/Globulin Ratio 0.5 (1.0-2.7) (Konrad Hyman DO) EKG Diagnostic Results Rate: tachycardiac Rhythm: NSR ST Segments: no acute changes ASA given to the pt in ED: No (Jose Hay MD) Rhythm Strip Diag. Results EP Interpretation: yes Rhythm: NSR, no PVC's, no ectopy (Jose Hay MD) EP Interpretation: yes Rate: 105 Rhythm: no PVC's, no ectopy, other - Sinus tach (Konrad Hyman DO) Chest X-Ray Diagnostic Results Chest X-Ray Diagnostic Results : Chest X-Ray Ordered: Yes # of Views/Limited/Complete: 1 View Indication: Shortness of Breath EP Interpretation: Yes Interpretation: no pneumothorax, other - Bilateral patchy lower lobe infiltrate increased in the right, heart size normal no acute bony abnormality Impression: Other - Increased right greater than left infiltrate Electronically Signed by: Konrad Hyman DO (Konrad Hyman DO) Last Vital Signs Date Time Temp Pulse Resp B/P (MAP) Pulse Ox O2 Delivery O2 Flow Rate FiO2 09/30/19 13:22 100.8 09/30/19 12:38 135 36 Room Air 09/30/19 12:28 140/98 (112) 97 (Jose Hay MD) Status: improved (Konrad Hyman DO) Disposition: ADMITTED INPATIENT Condition: Critical Referrals: Konrad Soares MD (PCP) Jose Hay MD Sep 30, 2019 13:35 Konrad Hyman DO Sep 30, 2019 14:38
[2019-09-30] MEDS ORDERED: Azithromycin 500 MG in NS 275 ML IV ONE (14:00)
[2019-09-30] MEDS ORDERED: Cefepime HCl 1 GM in D5W 55 ML IVPB ONE (14:00)
[2019-09-30 14:01] LABS: HEMATOCRIT 35.6 % (42.0-52.0); HEMOGLOBIN 11.7 G/DL (14.2-18.0); MEAN CORPUSCULAR VOLUME 100 FL (80-99); PLATELET COUNT 507 K/UL (150-450); RED BLOOD COUNT 3.57 M/UL (4.70-6.10); RED CELL DISTRIBUTION WIDTH 14.6 % (11.6-14.8)
--- NOTE | 2019-09-30 14:03 | Diagnostic Imaging Report ---
Indication: Shortness of breath Technique: One view of the chest Comparison: 05/16/2019 Findings: Basilar atelectatic changes and consolidation are seen on the right. There is some atelectasis at the left lung base. The remainder the lungs and pleural spaces are clear. The heart size is normal. The aorta is tortuous. Impression: Right basilar consolidation and atelectasis, could indicate pneumonia. Minimal left basilar atelectasis
[2019-09-30 14:05] LABS: WHITE BLOOD COUNT 28.2 K/UL (4.8-10.8)
[2019-09-30 14:10] LABS: APPEARANCE,URINE CLEAR; BILIRUBIN, URINE NEGATIVE (NEGATIVE); GLUCOSE, URINE (UA) NEGATIVE (NEGATIVE); KETONES,URINE NEGATIVE (NEGATIVE); LEUKOCYTE ESTERASE ,URINE 1+ (NEGATIVE); NITRITE,URINE NEGATIVE (NEGATIVE); PH,URINE 8 (4.5-8.0); PROTEIN,URINE 2+ (NEGATIVE); UROBILINOGEN,URINE NORMAL MG/DL (0.0-1.0)
[2019-09-30 14:12] LABS: ANION GAP 9 mmol/L (5-15); BLOOD UREA NITROGEN 25 mg/dL (7-18); CALCIUM 10.7 MG/DL (8.5-10.1); CARBON DIOXIDE 37 MMOL/L (21-32); CHLORIDE 107 MMOL/L (98-107); CREATININE 0.8 MG/DL (0.55-1.30); SODIUM 152 MMOL/L (136-145)
[2019-09-30 14:13] LABS: COLOR,URINE YELLOW
[2019-09-30 14:24] LABS: ALANINE AMINOTRANSFERASE 26 U/L (12-78); ALBUMIN 2.8 G/DL (3.4-5.0); ALBUMIN/GLOBULIN RATIO 0.5 (1.0-2.7); ALKALINE PHOSPHATASE 147 U/L (46-116); ASPARTATE AMINO TRANSFERASE 36 U/L (15-37); BILIRUBIN,TOTAL 0.3 MG/DL (0.2-1.0)
[2019-09-30 15:32] VITALS: BP 141/85
[2019-09-30 17:30] VITALS: BP 133/91
[2019-09-30 18:25] VITALS: BP 124/79
[2019-09-30 19:30] VITALS: BP 118/81
[2019-09-30 21:00] VITALS: BP 132/71
[2019-09-30 21:36] VITALS: BP 146/73
[2019-09-30] MEDS: NovoLOG Insulin Flexpen SUBQ SCH (21:51)
--- NOTE | 2019-09-30 22:45 | Consultation ---
DATE OF CONSULTATION: 09/30/2019 PULMONARY CONSULTATION CONSULTING PHYSICIAN: Truman Bradford MD. HISTORY OF PRESENT ILLNESS: This is a 69-year-old male that I know from recent admission to outside hospital. [facility] a [facility]. He came to the hospital with shortness of breath. The patient apparently also was noted to be febrile and tachycardic. The patient himself is nonverbal and unable to provide any further information. PAST MEDICAL HISTORY: Notable for hypertension, COPD, dementia, permanent pacemaker, diabetes mellitus. HOME MEDICATIONS: Reviewed an reconciled in chart. ALLERGIES: None reported. CODE STATUS: Full. PAST SURGICAL HISTORY: None reported. PHYSICAL EXAMINATION: GENERAL: Reveals a 69-year-old male. VITAL SIGNS: Blood pressure 140/90, heart rate 130, respirations 32, T-max 100.8. HEENT: Unremarkable. CHEST: Shows diminished breath sounds bilaterally. HEART: Normal heart sounds. ABDOMEN: Soft. LABORATORY DATA: Lab testing shows white count 94877, hemoglobin 11.7. Sodium 152, creatinine 0.8, alkaline phosphatase 147. Urinalysis negative. IMAGING STUDIES: X-ray chest obtained shows right pneumonia. IMPRESSION: 1. Right lung pneumonia. 2. senior living resident. 3. Recent hospitalization or acute hospital. 4. Diabetes mellitus. 5. Hypertension. 6. COPD. 7. Pacemaker. DISCUSSION: Admit to the hospital. Broad-spectrum antibiotics. Continue oxygen, pulmonary hygiene. We will address code status. Follow carefully. Truman Bradford M.D. DR: SENTHIL JOB#: [id number] CC:
[2019-10-01] VITALS: BP 128/76
[2019-10-01 04:00] VITALS: BP 116/72
--- NOTE | 2019-10-01 05:49 | Consultation ---
History of Present Illness General Chief Complaint: General Complaint Present Illness Allergies: Coded Allergies: PNEUMOCOCCAL VACCINE (Unverified Allergy, Unknown, 10/07/18) Uncoded Allergies: PNA VACCINE (Allergy, Unknown, 09/30/19) Medication History Scheduled Amlodipine Besylate* (Amlodipine Besylate*), 10 MG ORAL DAILY, (Reported) Ascorbic Acid* (Ascorbic Acid*), 250 MG ORAL DAILY, (Reported) Benztropine Mesylate (Cogentin), 0.5 MG PO BID, (Reported) Clonidine Hcl* (Catapres*), 0.1 MG ORAL EVERY 6 HOURS, (Reported) Docusate Sodium* (Docusate Sodium*), 100 MG ORAL TWICE A DAY, (Reported) Donepezil Hcl* (Donepezil Hcl*), 5 MG ORAL HS, (Reported) Donepezil Hcl* (Donepezil Hcl*), 5 MG ORAL DAILY, (Reported) Enoxaparin* (Lovenox*), 40 MG SUBQ DAILY, (Reported) Famotidine* (Pepcid 20mg tablet*), 20 MG ORAL DAILY, (Reported) Ferrous Sulfate* (Ferrous Sulfate*), 325 MG ORAL DAILY, (Reported) Heparin Sod (Porcine) (Heparin Sodium*), 5,000 UNITS SUBQ EVERY 12 HOURS, ( Reported) Levetiracetam (Keppra), 1,500 MG PO BID, (Reported) Levetiracetam (Keppra), 1,500 MG ORAL EVERY 12 HOURS, (Reported) Levetiracetam (Keppra), 500 MG ORAL EVERY 12 HOURS, (Reported) Levofloxacin* (Levaquin*), 750 MG ORAL DAILY, (Reported) Linezolid* (Zyvox*), 600 MG ORAL EVERY 12 HOURS, (Reported) Magnesium Hydroxide (Milk of Magnesia), 30 ML ORAL DAILY, (Reported) Mirtazapine (Remeron), 7.5 MG ORAL BEDTIME, (Reported) Quetiapine Fumarate* (Seroquel*), 100 MG ORAL TWICE A DAY, (Reported) Scheduled PRN Acetaminophen* (Acetaminophen 325MG Tablet*), 650 MG ORAL Q4H PRN for For Pain, (Reported) Miscellaneous Medications Insulin Lispro (Humalog), 0 SUBQ, (Reported) Patient History Healthcare decision maker Resuscitation status Do Not Resuscitate Advanced Directive on File Physical Exam Last 24 Hour Vital Signs Date Time Temp Pulse Resp B/P (MAP) Pulse Ox O2 Delivery O2 Flow Rate FiO2 10/01/19 04:00 88 10/01/19 00:45 128/76 10/01/19 00:00 76 10/01/19 00:00 97.6 72 19 128/76 (93) 100 09/30/19 21:50 Room Air 09/30/19 21:43 93 09/30/19 21:36 97.5 87 18 146/73 (97) 94 09/30/19 21:30 98.9 81 16 132/71 99 Room Air 09/30/19 21:00 99.9 81 16 132/71 99 Room Air 09/30/19 19:30 98.9 84 22 118/81 100 Room Air 09/30/19 18:25 99.9 75 22 124/79 100 Room Air 09/30/19 17:30 94 25 133/91 99 Room Air 09/30/19 15:32 101 28 141/85 99 Room Air 09/30/19 13:22 100.8 09/30/19 12:38 135 36 Room Air 09/30/19 12:28 100.6 135 36 140/98 (112) 97 Room Air Intake and Output 09/30/19 10/01/19 19:00 07:00 Intake Total 3230 ml Balance 3230 ml Intake IV Total 3230 ml # Voids 1 Laboratory Tests Test 09/30/19 13:00 White Blood Count 28.2 K/UL (4.8-10.8) *H Red Blood Count 3.57 M/UL (4.70-6.10) L Hemoglobin 11.7 G/DL (14.2-18.0) L Hematocrit 35.6 % (42.0-52.0) L Mean Corpuscular Volume 100 FL (80-99) H Mean Corpuscular Hemoglobin 32.7 PG (27.0-31.0) H Mean Corpuscular Hemoglobin Concent 32.8 G/DL (32.0-36.0) Red Cell Distribution Width 14.6 % (11.6-14.8) Platelet Count 507 K/UL (150-450) H Mean Platelet Volume 5.1 FL (6.5-10.1) L Neutrophils (%) (Auto) % (45.0-75.0) Lymphocytes (%) (Auto) % (20.0-45.0) Monocytes (%) (Auto) % (1.0-10.0) Eosinophils (%) (Auto) % (0.0-3.0) Basophils (%) (Auto) % (0.0-2.0) Differential Total Cells Counted 100 Neutrophils % (Manual) 85 % (45-75) H Lymphocytes % (Manual) 10 % (20-45) L Monocytes % (Manual) 5 % (1-10) Eosinophils % (Manual) 0 % (0-3) Basophils % (Manual) 0 % (0-2) Band Neutrophils 0 % (0-8) Platelet Estimate Adequate Platelet Morphology Normal Red Blood Cell Morphology Normal Urine Color Yellow Urine Appearance Clear Urine pH 8 (4.5-8.0) Urine Specific [place] 1.015 (1.005-1.035) Urine Protein 2+ (NEGATIVE) H Urine Glucose (UA) Negative (NEGATIVE) Urine Ketones Negative (NEGATIVE) Urine Blood Negative (NEGATIVE) Urine Nitrite Negative (NEGATIVE) Urine Bilirubin Negative (NEGATIVE) Urine Urobilinogen Normal MG/DL (0.0-1.0) Urine Leukocyte Esterase 1+ (NEGATIVE) H Urine RBC 0-2 /HPF (0 - 0) H Urine WBC 2-4 /HPF (0 - 0) Urine Squamous Epithelial Cells Occasional /LPF Urine Bacteria Occasional /HPF (NONE) Sodium Level 152 MMOL/L (136-145) H Potassium Level 4.0 MMOL/L (3.5-5.1) Chloride Level 107 MMOL/L (98-107) Carbon Dioxide Level 37 MMOL/L (21-32) H Anion Gap 9 mmol/L (5-15) Blood Urea Nitrogen 25 mg/dL (7-18) H Creatinine 0.8 MG/DL (0.55-1.30) Estimat Glomerular Filtration Rate > 60 mL/min (>60) Glucose Level 149 MG/DL (74-106) H Lactic Acid Level 1.10 mmol/L (0.4-2.0) Calcium Level 10.7 MG/DL (8.5-10.1) H Total Bilirubin 0.3 MG/DL (0.2-1.0) Aspartate Amino Transf (AST/SGOT) 36 U/L (15-37) Alanine Aminotransferase (ALT/SGPT) 26 U/L (12-78) Alkaline Phosphatase 147 U/L (46-116) H Troponin I 0.015 ng/mL (0.000-0.056) Pro-B-Type Natriuretic Peptide 392 pg/mL (0-125) H Total Protein 9.0 G/DL (6.4-8.2) H Albumin 2.8 G/DL (3.4-5.0) L Globulin 6.2 g/dL Albumin/Globulin Ratio 0.5 (1.0-2.7) L Microbiology Date/Time Source Procedure Growth Status 09/30/19 13:20 Nasal Nares - Final Complete 09/30/19 13:20 Nasal Nares - Final Complete 09/30/19 13:30 Rectum Received Height (Feet): 6 Height (Inches): 0.00 Weight (Pounds): 180 Medications Current Medications Medications (Trade) Dose Ordered Sig/Nidhi Route PRN Reason Start Time Stop Time Status Last Admin Dose Admin Acetaminophen (Tylenol) 650 mg Q4H PRN GT Pain/Temp >100.5 10/01/19 03:30 10/30/19 23:29 Amlodipine Besylate (Norvasc) 10 mg DAILY GT 10/01/19 09:00 10/31/19 08:59 Ascorbic Acid (Vitamin C) 250 mg BID GT 10/01/19 09:00 10/31/19 08:59 Clonidine HCl (Catapres Tab) 0.1 mg EVERY 6 HOURS GT 10/01/19 00:00 12/30/19 00:00 10/01/19 00:45 Dextrose (Dextrose 50%) 25 ml Q30M PRN IV Hypoglycemia 09/30/19 22:00 12/29/19 21:59 Dextrose (Dextrose 50%) 50 ml Q30M PRN IV Hypoglycemia 09/30/19 22:00 12/29/19 21:59 Docusate Sodium (Colace) 100 mg TWICE A DAY GT 10/01/19 09:00 10/31/19 08:59 Donepezil HCl (Aricept) 5 mg BEDTIME GT 10/01/19 21:00 10/31/19 20:59 Famotidine (Pepcid) 20 mg DAILY GT 10/01/19 09:00 12/30/19 08:59 Ferrous Sulfate (Feosol) 325 mg BID GT 10/01/19 09:00 12/30/19 08:59 Insulin Aspart (NovoLOG) BEFORE MEALS AND HS SUBQ 09/30/19 21:51 12/29/19 21:50 Levetiracetam (Keppra) 500 mg Q12HR GT 10/01/19 09:00 11/15/19 08:59 Magnesium Hydroxide (Mom) 30 ml DAILY GT 10/01/19 09:00 10/31/19 08:59 Multivitamins (Multivitamins) 1 tab DAILY GT 10/01/19 09:00 10/31/19 08:59 Phenytoin (Dilantin) 300 mg DAILY GT 10/01/19 09:00 11/15/19 08:59 Sennosides (Senokot) 8.6 mg DAILY GT 10/01/19 09:00 10/31/19 08:59 Assessment/Plan Assessment/Plan: Hematology Consultation REQ MD: Konrad Bradford RFC: High Wbc, hx of hypercalcemia DOS: 10/01/2019 HPI 69-year-old male presents ED for evaluation of fever, tachycardia, high wbc, and fevers. Coming from alf facility. Symptoms started x1 day. Patient nonverbal at baseline. Unable to provide any additional history at this time. Concern for COVID at facility. Patient currently being treated for pneumonia. No signs of distress on arrival. No other aggravating relieving factors. No other associated symptoms Seen by pulm, recs noted, wbc remain at 28k Coded Allergies: PNEUMOCOCCAL VACCINE (Unverified Allergy, Unknown, 10/07/18) Uncoded Allergies: PNA VACCINE (Allergy, Unknown, 09/30/19) COVID-19 Screening Contact w/high risk pt: No Recent Travel to affected area: No Experienced COVID-19 symptoms?: No Patient History Past Medical History: DM, HTN, COPD, dementia, psych hx Past Surgical History: pacemaker Pertinent Family History: none Social History: Denies: smoking, alcohol use, drug use Immunizations: UTD Reviewed Nursing Documentation: PMH: Agreed; PSxH: Agreed Nursing Documentation-PMH Past Medical History: No History, Except For Hx Cardiac Problems: No Hx Hypertension: Yes Hx Pacemaker: Yes Hx COPD: Yes Hx Diabetes: Yes Hx Cancer: No Hx Gastrointestinal Problems: Yes History Of Psychiatric Problem: Yes - dementia, depression, Hx Neurological Problems: Yes - Altered Mental Status. Hx Dementia: Yes - Unspecified, without behavioral disturbance Hx Seizures: Yes Hx Epilepsy: Yes - Unspecified, not intractable, without status epilepticus Hx Syncope: Yes Review of Systems All Other Systems: limited PA vitals: noted gen: nonverbal pulm: ctab, some crackles left side heent; nc, at, eomi Cv: rrr, no mgr abd: soft, nt, nd ext: no cce Labs: noted Imaging: reviewed # Leukocytosis on admission, rule out covid, given snf hx of multiple covid patinets, with pna noted on imaging --> may be due to infection --> per id --> wbc 28 --> smear is noted # Hypercalcemia r/o malignancy, r/o myeloma, elevated on admission, may be 2/2 dehydration --> Ca 10.7, pth is wnl, spep is also wnl as is upep --> on iv fluids as per pcp --> renal eval prn --> pth on prior admission was 42 # Multiple lung nodules -- in 2017 2 cm pleural-based masslike opacity containing multiple nodular calcifications andadjacent parenchymal linear density persists in the anterolateral periphery of thelateral segment right middle lobe, unchanged. Adjacent small nodular parenchymaldensities persist, unchanged. --> pulm aware --> consider ct chest once better --> Dr. 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 Ignacio Ponce MD Oct 01, 2019 05:49
[2019-10-01] MEDS: NovoLOG Insulin Flexpen SUBQ SCH ×4 (06:07→21:00)
[2019-10-01] MEDS: Heparin 5000 units/ml inj SUBQ SCH ×3 (06:13→21:39)
[2019-10-01 08:00] VITALS: BP 110/70
[2019-10-01 08:58] LABS: BASOPHILS % (AUTO) 1.5 % (0.0-2.0); EOSINOPHILS % (AUTO) 1.1 % (0.0-3.0); HEMATOCRIT 27.7 % (42.0-52.0); HEMOGLOBIN 8.8 G/DL (14.2-18.0); LYMPHOCYTES % (AUTO) 17.3 % (20.0-45.0); MEAN CORPUSCULAR VOLUME 101 FL (80-99); MONOCYTES % (AUTO) 4.7 % (1.0-10.0); NEUTROPHILS % (AUTO) 75.3 % (45.0-75.0); PLATELET COUNT 369 K/UL (150-450); RED BLOOD COUNT 2.75 M/UL (4.70-6.10); RED CELL DISTRIBUTION WIDTH 14.4 % (11.6-14.8); WHITE BLOOD COUNT 14.7 K/UL (4.8-10.8)
[2019-10-01] MEDS: levETIRAcetam 500mg/5ml Liquid GT SCH ×2 (08:58→21:37)
[2019-10-01] MEDS: Ferrous Sulfate 300 MG/5 ML UDC GT SCH ×2 (08:58→17:22)
[2019-10-01] MEDS: Phenytoin Susp 100mg/4ml GT SCH (08:58)
[2019-10-01] MEDS: Ascorbic Acid 500mg tab GT SCH ×2 (08:59→17:23)
[2019-10-01] MEDS: Docusate 100mg/10ml Liq GT SCH ×2 (08:59→17:23)
[2019-10-01] MEDS: Sennosides 8.6mg tab GT SCH (08:59)
[2019-10-01] MEDS: Milk of Magnesia 30ml Ud GT SCH (08:59)
[2019-10-01] MEDS ORDERED: Milk of Magnesia 30ml Ud ORAL SCH (09:00)
[2019-10-01] MEDS ORDERED: Docusate 100mg cap ORAL SCH (09:00)
[2019-10-01 09:24] LABS: ANION GAP 8 mmol/L (5-15); BLOOD UREA NITROGEN 16 mg/dL (7-18); CALCIUM 9.7 MG/DL (8.5-10.1); CARBON DIOXIDE 32 MMOL/L (21-32); CHLORIDE 111 MMOL/L (98-107); CREATININE 0.7 MG/DL (0.55-1.30); POTASSIUM 3.5 MMOL/L (3.5-5.1); SODIUM 150 MMOL/L (136-145)
--- NOTE | 2019-10-01 10:31 | Pulmonology Progress Note ---
Assessment/Plan Assessment/Plan IMPRESSION: 1. Right lung pneumonia. 2. care home resident. 3. Recent hospitalization at acute hospital. 4. Diabetes mellitus. 5. Hypertension. 6. COPD. 7. Pacemaker. DISCUSSION: Continue broad-spectrum antibiotics. Continue oxygen, pulmonary hygiene. I will follow carefully. Truman Bradford M.D. Subjective Interval Events: None new Constitutional: Reports: no symptoms HEENT: Repors: no symptoms Respiratory: Reports: dry cough, shortness of breath Cardiovascular: Reports: no symptoms Gastrointestinal/Abdominal: Reports: no symptoms Allergies: Coded Allergies: PNEUMOCOCCAL VACCINE (Unverified Allergy, Unknown, 10/07/18) Uncoded Allergies: PNA VACCINE (Allergy, Unknown, 09/30/19) Objective Last 24 Hour Vital Signs Date Time Temp Pulse Resp B/P (MAP) Pulse Ox O2 Delivery O2 Flow Rate FiO2 10/01/19 08:59 62 110/70 10/01/19 08:00 97.8 62 18 110/70 (83) 93 10/01/19 06:07 116/72 10/01/19 04:00 88 10/01/19 04:00 97.5 65 18 116/72 (87) 97 10/01/19 00:45 128/76 10/01/19 00:00 76 10/01/19 00:00 97.6 72 19 128/76 (93) 100 09/30/19 21:50 Room Air 09/30/19 21:43 93 09/30/19 21:36 97.5 87 18 146/73 (97) 94 09/30/19 21:30 98.9 81 16 132/71 99 Room Air 09/30/19 21:00 99.9 81 16 132/71 99 Room Air 09/30/19 19:30 98.9 84 22 118/81 100 Room Air 09/30/19 18:25 99.9 75 22 124/79 100 Room Air 09/30/19 17:30 94 25 133/91 99 Room Air 09/30/19 15:32 101 28 141/85 99 Room Air 09/30/19 13:22 100.8 09/30/19 12:38 135 36 Room Air 09/30/19 12:28 100.6 135 36 140/98 (112) 97 Room Air Intake and Output 09/30/19 10/01/19 19:00 07:00 Intake Total 3230 ml 200 ml Output Total 400 ml Balance 3230 ml -200 ml Intake Free Water 200 ml IV Total 3230 ml Output Urine Total 400 ml # Voids 1 General Appearance: no acute distress HEENT: normocephalic Respiratory/Chest: chest wall non-tender, decreased breath sounds Cardiovascular: normal peripheral pulses, normal rate Abdomen: normal bowel sounds Microbiology Date/Time Source Procedure Growth Status 09/30/19 13:20 Nasal Nares - Final Complete 09/30/19 13:20 Nasal Nares - Final Complete 09/30/19 13:30 Rectum Received Laboratory Tests 09/30/19 13:00: White Blood Count 28.2*H, Red Blood Count 3.57L, Hemoglobin 11.7L, Hematocrit 35.6L, Mean Corpuscular Volume 100H, Mean Corpuscular Hemoglobin 32.7H, Mean Corpuscular Hemoglobin Concent 32.8, Red Cell Distribution Width 14.6, Platelet Count 507H, Mean Platelet Volume 5.1L, Neutrophils (%) (Auto) , Lymphocytes (%) (Auto) , Monocytes (%) (Auto) , Eosinophils (%) (Auto) , Basophils (%) (Auto) , Differential Total Cells Counted 100, Neutrophils % (Manual) 85H, Lymphocytes % (Manual) 10L, Monocytes % (Manual) 5, Eosinophils % (Manual) 0, Basophils % ( Manual) 0, Band Neutrophils 0, Platelet Estimate Adequate, Platelet Morphology Normal, Red Blood Cell Morphology Normal, Urine Color Yellow, Urine Appearance Clear, Urine pH 8, Urine Specific [place] 1.015, Urine Protein 2+H, Urine Glucose (UA) Negative, Urine Ketones Negative, Urine Blood Negative, Urine Nitrite Negative, Urine Bilirubin Negative, Urine Urobilinogen Normal, Urine Leukocyte Esterase 1+H, Urine RBC 0-2H, Urine WBC 2-4, Urine Squamous Epithelial Cells Occasional, Urine Bacteria Occasional, Sodium Level 152H, Potassium Level 4.0, Chloride Level 107, Carbon Dioxide Level 37H, Anion Gap 9, Blood Urea Nitrogen 25H, Creatinine 0.8, Estimat Glomerular Filtration Rate > 60 , Glucose Level 149H, Lactic Acid Level 1.10, Calcium Level 10.7H, Total Bilirubin 0.3, Aspartate Amino Transf (AST/SGOT) 36, Alanine Aminotransferase ( ALT/SGPT) 26, Alkaline Phosphatase 147H, Troponin I 0.015, Pro-B-Type Natriuretic Peptide 392H, Total Protein 9.0H, Albumin 2.8L, Globulin 6.2, Albumin/Globulin Ratio 0.5L 10/01/19 07:55: White Blood Count 14.7H, Red Blood Count 2.75L, Hemoglobin 8.8L, Hematocrit 27.7L, Mean Corpuscular Volume 101H, Mean Corpuscular Hemoglobin 32.1H, Mean Corpuscular Hemoglobin Concent 31.9L, Red Cell Distribution Width 14.4, Platelet Count 369, Mean Platelet Volume 5.2L, Neutrophils (%) (Auto) 75.3H, Lymphocytes (%) (Auto) 17.3L, Monocytes (%) (Auto) 4.7, Eosinophils (%) (Auto) 1.1, Basophils (%) (Auto) 1.5, Sodium Level 150H, Potassium Level 3.5, Chloride Level 111H, Carbon Dioxide Level 32, Anion Gap 8, Blood Urea Nitrogen 16, Creatinine 0.7, Estimat Glomerular Filtration Rate > 60, Glucose Level 153H, Calcium Level 9.7 Current Medications Medications (Trade) Dose Ordered Sig/Nidhi Route PRN Reason Start Time Stop Time Status Last Admin Dose Admin Acetaminophen (Tylenol) 650 mg Q4H PRN GT Pain/Temp >100.5 10/01/19 03:30 10/30/19 23:29 Amlodipine Besylate (Norvasc) 10 mg DAILY GT 10/01/19 09:00 10/31/19 08:59 10/01/19 08:59 Ascorbic Acid (Vitamin C) 250 mg BID GT 10/01/19 09:00 10/31/19 08:59 10/01/19 08:59 Clonidine HCl (Catapres Tab) 0.1 mg EVERY 6 HOURS GT 10/01/19 00:00 12/30/19 00:00 10/01/19 06:07 Dextrose (Dextrose 50%) 25 ml Q30M PRN IV Hypoglycemia 09/30/19 22:00 12/29/19 21:59 Dextrose (Dextrose 50%) 50 ml Q30M PRN IV Hypoglycemia 09/30/19 22:00 12/29/19 21:59 Docusate Sodium (Colace) 100 mg TWICE A DAY GT 10/01/19 09:00 10/31/19 08:59 10/01/19 08:59 Donepezil HCl (Aricept) 5 mg BEDTIME GT 10/01/19 21:00 10/31/19 20:59 Famotidine (Pepcid) 20 mg DAILY GT 10/01/19 09:00 12/30/19 08:59 10/01/19 08:59 Ferrous Sulfate (Feosol) 325 mg BID GT 10/01/19 09:00 12/30/19 08:59 10/01/19 08:58 Heparin Sodium (Porcine) (Heparin 5000 units/ml) 5,000 units EVERY 8 HOURS SUBQ 10/01/19 06:00 11/15/19 05:59 10/01/19 06:13 Insulin Aspart (NovoLOG) BEFORE MEALS AND HS SUBQ 09/30/19 21:51 12/29/19 21:50 Levetiracetam (Keppra) 500 mg Q12HR GT 10/01/19 09:00 11/15/19 08:59 10/01/19 08:58 Magnesium Hydroxide (Mom) 30 ml DAILY GT 10/01/19 09:00 10/31/19 08:59 10/01/19 08:59 Multivitamins (Multivitamins) 1 tab DAILY GT 10/01/19 09:00 10/31/19 08:59 10/01/19 08:59 Phenytoin (Dilantin) 300 mg DAILY GT 10/01/19 09:00 11/15/19 08:59 10/01/19 08:58 Sennosides (Senokot) 8.6 mg DAILY GT 10/01/19 09:00 10/31/19 08:59 10/01/19 08:59 Truman Bradford MD Oct 01, 2019 10:31
--- NOTE | 2019-10-01 11:48 | Cardiac Electrophysiology PN ---
Subjective Subjective [id number] Objective Last 24 Hour Vital Signs Date Time Temp Pulse Resp B/P (MAP) Pulse Ox O2 Delivery O2 Flow Rate FiO2 10/01/19 09:00 Nasal Cannula 2.0 10/01/19 08:59 62 110/70 10/01/19 08:00 75 10/01/19 08:00 97.8 62 18 110/70 (83) 93 10/01/19 06:07 116/72 10/01/19 04:00 88 10/01/19 04:00 97.5 65 18 116/72 (87) 97 10/01/19 00:45 128/76 10/01/19 00:00 76 10/01/19 00:00 97.6 72 19 128/76 (93) 100 09/30/19 21:50 Room Air 09/30/19 21:43 93 09/30/19 21:36 97.5 87 18 146/73 (97) 94 09/30/19 21:30 98.9 81 16 132/71 99 Room Air 09/30/19 21:00 99.9 81 16 132/71 99 Room Air 09/30/19 19:30 98.9 84 22 118/81 100 Room Air 09/30/19 18:25 99.9 75 22 124/79 100 Room Air 09/30/19 17:30 94 25 133/91 99 Room Air 09/30/19 15:32 101 28 141/85 99 Room Air 09/30/19 13:22 100.8 09/30/19 12:38 135 36 Room Air 09/30/19 12:28 100.6 135 36 140/98 (112) 97 Room Air Intake and Output 09/30/19 10/01/19 19:00 07:00 Intake Total 3230 ml 200 ml Output Total 400 ml Balance 3230 ml -200 ml Intake Free Water 200 ml IV Total 3230 ml Output Urine Total 400 ml # Voids 1 Laboratory Tests Test 09/30/19 13:00 10/01/19 07:55 White Blood Count 28.2 K/UL (4.8-10.8) *H 14.7 K/UL (4.8-10.8) H Red Blood Count 3.57 M/UL (4.70-6.10) L 2.75 M/UL (4.70-6.10) L Hemoglobin 11.7 G/DL (14.2-18.0) L 8.8 G/DL (14.2-18.0) L Hematocrit 35.6 % (42.0-52.0) L 27.7 % (42.0-52.0) L Mean Corpuscular Volume 100 FL (80-99) H 101 FL (80-99) H Mean Corpuscular Hemoglobin 32.7 PG (27.0-31.0) H 32.1 PG (27.0-31.0) H Mean Corpuscular Hemoglobin Concent 32.8 G/DL (32.0-36.0) 31.9 G/DL (32.0-36.0) L Red Cell Distribution Width 14.6 % (11.6-14.8) 14.4 % (11.6-14.8) Platelet Count 507 K/UL (150-450) H 369 K/UL (150-450) Mean Platelet Volume 5.1 FL (6.5-10.1) L 5.2 FL (6.5-10.1) L Neutrophils (%) (Auto) % (45.0-75.0) 75.3 % (45.0-75.0) H Lymphocytes (%) (Auto) % (20.0-45.0) 17.3 % (20.0-45.0) L Monocytes (%) (Auto) % (1.0-10.0) 4.7 % (1.0-10.0) Eosinophils (%) (Auto) % (0.0-3.0) 1.1 % (0.0-3.0) Basophils (%) (Auto) % (0.0-2.0) 1.5 % (0.0-2.0) Differential Total Cells Counted 100 Neutrophils % (Manual) 85 % (45-75) H Lymphocytes % (Manual) 10 % (20-45) L Monocytes % (Manual) 5 % (1-10) Eosinophils % (Manual) 0 % (0-3) Basophils % (Manual) 0 % (0-2) Band Neutrophils 0 % (0-8) Platelet Estimate Adequate Platelet Morphology Normal Red Blood Cell Morphology Normal Urine Color Yellow Urine Appearance Clear Urine pH 8 (4.5-8.0) Urine Specific [place] 1.015 (1.005-1.035) Urine Protein 2+ (NEGATIVE) H Urine Glucose (UA) Negative (NEGATIVE) Urine Ketones Negative (NEGATIVE) Urine Blood Negative (NEGATIVE) Urine Nitrite Negative (NEGATIVE) Urine Bilirubin Negative (NEGATIVE) Urine Urobilinogen Normal MG/DL (0.0-1.0) Urine Leukocyte Esterase 1+ (NEGATIVE) H Urine RBC 0-2 /HPF (0 - 0) H Urine WBC 2-4 /HPF (0 - 0) Urine Squamous Epithelial Cells Occasional /LPF Urine Bacteria Occasional /HPF (NONE) Sodium Level 152 MMOL/L (136-145) H 150 MMOL/L (136-145) H Potassium Level 4.0 MMOL/L (3.5-5.1) 3.5 MMOL/L (3.5-5.1) Chloride Level 107 MMOL/L (98-107) 111 MMOL/L (98-107) H Carbon Dioxide Level 37 MMOL/L (21-32) H 32 MMOL/L (21-32) Anion Gap 9 mmol/L (5-15) 8 mmol/L (5-15) Blood Urea Nitrogen 25 mg/dL (7-18) H 16 mg/dL (7-18) Creatinine 0.8 MG/DL (0.55-1.30) 0.7 MG/DL (0.55-1.30) Estimat Glomerular Filtration Rate > 60 mL/min (>60) > 60 mL/min (>60) Glucose Level 149 MG/DL (74-106) H 153 MG/DL (74-106) H Lactic Acid Level 1.10 mmol/L (0.4-2.0) Calcium Level 10.7 MG/DL (8.5-10.1) H 9.7 MG/DL (8.5-10.1) Total Bilirubin 0.3 MG/DL (0.2-1.0) Aspartate Amino Transf (AST/SGOT) 36 U/L (15-37) Alanine Aminotransferase (ALT/SGPT) 26 U/L (12-78) Alkaline Phosphatase 147 U/L (46-116) H Troponin I 0.015 ng/mL (0.000-0.056) Pro-B-Type Natriuretic Peptide 392 pg/mL (0-125) H Total Protein 9.0 G/DL (6.4-8.2) H Albumin 2.8 G/DL (3.4-5.0) L Globulin 6.2 g/dL Albumin/Globulin Ratio 0.5 (1.0-2.7) L Microbiology Date/Time Source Procedure Growth Status 09/30/19 13:20 Nasal Nares - Final Complete 09/30/19 13:20 Nasal Nares - Final Complete 09/30/19 13:30 Rectum Received Sajan Campbell MD Oct 01, 2019 11:48
[2019-10-01 12:00] VITALS: BP 116/68
[2019-10-01] MEDS: Azithromycin 500 MG in D5W 275 ML IV SCH (14:08)
[2019-10-01] MEDS: Cefepime HCl 1 GM in D5W 55 ML IVPB SCH (14:09)
[2019-10-01 16:00] VITALS: BP 110/60
--- NOTE | 2019-10-01 18:00 | Consultation ---
DATE OF CONSULTATION: 10/01/2019 CARDIOLOGY CONSULTATION CONSULTING PHYSICIAN: Sajan Campbell MD. REFERRING PHYSICIAN: Konrad Soares MD. REASON FOR CONSULTATION: Tachycardia and shortness of breath. HISTORY OF PRESENT ILLNESS: The patient is a 69-year-old gentleman with history of hypertension, diabetes, COPD, history of pacemaker, and dementia who was [facility] from [facility] for shortness of breath and desaturation. The patient was tachycardic with heart rate of 130s and max temperature was 100.8. The patient was admitted to rule out COVID and a Cardiology consultation was obtained for further evaluation and management. REVIEW OF SYSTEMS: Cannot be obtained as patient is currently nonverbal. PAST MEDICAL HISTORY: As mentioned above. FAMILY HISTORY: Noncontributory. SOCIAL HISTORY: The patient is a [facility] resident. Does not smoke or drink alcohol. PHYSICAL EXAMINATION: VITAL SIGNS: Blood pressure 110/70, pulse 62, respirations 18, and temperature 97.8. HEAD AND NECK: Shows no JVD. LUNGS: Coarse rhonchi. CARDIOVASCULAR: Regular S1 and S2 with no gallop. ABDOMEN: Status post G-tube. EXTREMITIES: No pitting edema. LABORATORY AND DIAGNOSTIC DATA: Labs show initial white count of 28.2 that went down to 14.7, hemoglobin was 11.7 went down to 8.8, and a platelet count is 369. Sodium 150, potassium 3.5, BUN 16, creatinine 0.7. First troponin was negative. BNP 392. Chest x-ray does not show any evidence of pacemaker. ASSESSMENT AND PLAN: 1. Tachycardia, likely due to pneumonia and dehydration. Sodium was 150 and white count was 61951. The patient is orally on cefepime and azithromycin. 2. Hypertension on amlodipine 10 mg daily. 3. Shortness of breath, fever, and high white count. The patient IV antibiotic and being ruled out for COVID and isolation. 4. History of seizures, on Keppra. 5. Dysphagia, status post PEG placement. Thank you very much for allowing me to participate in the care of this patient. Please do not hesitate to contact me for any questions regarding my evaluation. Sincerely, Sajan Campbell M.D. DR: Marifer JOB#: [id number] CC:
--- NOTE | 2019-10-01 19:14 | Consultation ---
DATE OF CONSULTATION: 10/01/2019 INFECTIOUS DISEASES CONSULTATION CONSULTING PHYSICIAN: Curtis Farah MD. PRIMARY ATTENDING PHYSICIAN: Konrad Soares MD. REASON FOR CONSULTATION: Sepsis, pneumonia. HISTORY OF PRESENT ILLNESS: The patient is a 69-year-old admitted yesterday from a nursing facility. He had fever and tachycardia for one day. has history of recent hospitalization in another facility. At the time of admission, had a temperature of 100.6, pulse 135, had leukocytosis of 28.2, hypernatremic. The patient is nonverbal, not a source of history. PAST MEDICAL HISTORY: Significant for anemia, COPD, dementia, hypertension, diverticulosis, status post G-tube placement. ALLERGIES: Allergic to pneumococcal vaccine. MEDICATIONS: Aricept, cefepime, azithromycin, amlodipine, vitamin C, famotidine, Keppra, multivitamin, phenytoin, Colace, ferrous sulfate, magnesium hydroxide, heparin, Tylenol, and clonidine. SOCIAL HISTORY: alf resident. Single. CODE STATUS: DNR. REVIEW OF SYSTEMS: Unobtainable. PHYSICAL EXAMINATION: VITAL SIGNS: Temperature 97.8, pulse 66, blood pressure 110/70. GENERAL APPEARANCE: No acute distress. HEAD AND NECK: Dry mouth. HEART: Normal rate. LUNGS: Clear. ABDOMEN: Soft and flat, status post G-tube. EXTREMITIES: No edema. GENITOURINARY: Macedo catheter. SKIN: Unstageable sacral pressure ulcer. NEUROLOGIC: He is awake, nonverbal. LABORATORY AND DIAGNOSTIC DATA: WBC today is 14.7, hemoglobin 8.8, hematocrit 27.7, platelets is 369. Sodium 150 coming down from 152, potassium 3.5, chloride 111, bicarb 32, BUN 16, creatinine 0.7, glucose is 153. Albumin is low 2.8. Influenza A and B tests are negative. Chest x-ray showed right basilar consolidation, atelectasis. UA, wbc's of 2 to 4, within normal limits, nitrite negative. IMPRESSION: 1. Sepsis with fever, tachycardia, leukocytosis. 2. Pneumonia. We will try to rule out COVID-19. 3. Unstageable pressure ulcer that doesn't seem to be infected . 4. Hypernatremia. 5. Anemia. 6. Advanced dementia. 7. History of diverticulosis. 8. Gastrostomy status. RECOMMENDATION: Continue cefepime and Zithromax. We will follow up cultures and COVID-19 tests. At the end of my exam, I thank Dr. Soares, for involving me in the care of this patient. Curtis Farah M.D. DR: Wilfredo JOB#: [id number] CC: HOSEA
[2019-10-01 20:00] VITALS: BP 129/65
[2019-10-01] MEDS: Donepezil 5mg Tab GT SCH (21:37)
[2019-10-02] VITALS: BP 126/60
--- NOTE | 2019-10-02 02:00 | History and Physical Report ---
DATE OF ADMISSION: 09/30/2019 HISTORY OF PRESENT ILLNESS: The patient is nonverbal, poor historian, cannot get any history from the patient. The patient is here for fever, tachycardia, Coronavirus rule out. The patient was having shortness of breath and tachycardia at the long-term and found also to be hyponatremic, dehydration, severe leukocytosis and found to have pneumonia. COVID test was sent. It started about a day before admission. The patient now in respiratory distress. He is a poor historian. PAST MEDICAL HISTORY: Hypertension, arrhythmia, COPD, NIDDM, history of GERD, history of dementia and depression, history of seizures, history of syncope, psychosis, dementia, iron deficiency anemia. PAST SURGICAL HISTORY: PEG. ALLERGIES: Pneumococcal vaccine. MEDICATIONS: Cogentin, vitamin C, amlodipine, docusate, benazepril, Pepcid, insulin, Keppra, mirtazapine, and Seroquel. SOCIAL HISTORY: There is no history of alcohol or illicit drugs. Comes from a long-term. REVIEW OF SYSTEMS: Unable to obtain. Poor historian. PHYSICAL EXAMINATION: VITAL SIGNS: Temperature is 98, pulse 66, blood pressure 116/68. HEENT: PERRLA. CHEST: Bibasilar rhonchi. CARDIOVASCULAR: Regular rate and rhythm. ABDOMEN: Soft. G-tube site is intact. EXTREMITIES: 1+ edema. NEUROLOGICAL: Poor historian. LABORATORY DATA: WBC of 28.2, hemoglobin of 11.7, platelets , sodium 152, potassium of 4, BUN of 25, creatinine of 0.8, glucose of 149, troponin 0.015. ASSESSMENT AND PLAN: Pneumonia, respiratory insufficiency, rule out COVID, hypernatremia, dehydration and severe leukocytosis. I have asked Dr. Henry, Dr. Bradford, Dr. Curtis Farah, and Dr. Campbell to see the patient for the above-mentioned abnormality symptoms and diagnoses and for the management of them. Konrad Soares M.D. DR: Negrito JOB#: [id number] CC:
[2019-10-02 04:00] VITALS: BP 132/67
[2019-10-02 06:03] LABS: EOSINOPHILS % (AUTO) 2.3 % (0.0-3.0); HEMOGLOBIN 9.8 G/DL (14.2-18.0); LYMPHOCYTES % (AUTO) 28.2 % (20.0-45.0); MEAN CORPUSCULAR VOLUME 99 FL (80-99); MONOCYTES % (AUTO) 7.7 % (1.0-10.0); NEUTROPHILS % (AUTO) 59.8 % (45.0-75.0); PLATELET COUNT 384 K/UL (150-450); RED BLOOD COUNT 3.03 M/UL (4.70-6.10); RED CELL DISTRIBUTION WIDTH 14.4 % (11.6-14.8); WHITE BLOOD COUNT 11.6 K/UL (4.8-10.8)
[2019-10-02] MEDS: Heparin 5000 units/ml inj SUBQ SCH ×3 (06:05→21:10)
[2019-10-02] MEDS: NovoLOG Insulin Flexpen SUBQ SCH ×4 (06:30→21:24)
[2019-10-02 07:17] LABS: ANION GAP 7 mmol/L (5-15); BLOOD UREA NITROGEN 15 mg/dL (7-18); CARBON DIOXIDE 32 MMOL/L (21-32); CHLORIDE 109 MMOL/L (98-107); CREATININE 0.7 MG/DL (0.55-1.30); POTASSIUM 3.8 MMOL/L (3.5-5.1); SODIUM 148 MMOL/L (136-145)
[2019-10-02 08:00] VITALS: BP 117/67
[2019-10-02] MEDS ORDERED: Metoclopramide 10mg/2ml Inj IVP PRN (09:45)
[2019-10-02] MEDS: levETIRAcetam 500mg/5ml Liquid GT SCH ×2 (09:48→21:10)
[2019-10-02] MEDS: Phenytoin Susp 100mg/4ml GT SCH (09:49)
[2019-10-02] MEDS: Ascorbic Acid 500mg tab GT SCH ×2 (09:49→17:19)
[2019-10-02] MEDS: Docusate 100mg/10ml Liq GT SCH ×2 (09:49→17:19)
[2019-10-02] MEDS: Milk of Magnesia 30ml Ud GT SCH (09:49)
[2019-10-02] MEDS: Ferrous Sulfate 300 MG/5 ML UDC GT SCH ×2 (09:49→17:19)
[2019-10-02] MEDS: Sennosides 8.6mg tab GT SCH (09:49)
--- NOTE | 2019-10-02 11:46 | Pulmonology Progress Note ---
Assessment/Plan Assessment/Plan IMPRESSION: 1. Right lung pneumonia. 2. intermediate resident. 3. Recent hospitalization at acute hospital. 4. Diabetes mellitus. 5. Hypertension. 6. COPD. 7. Pacemaker. DISCUSSION: Continue broad-spectrum antibiotics. Continue oxygen, pulmonary hygiene. I will follow carefully. COVID 19 pcr x 1 negative Truman Bradford M.D. Subjective Interval Events: None new Constitutional: Reports: no symptoms HEENT: Repors: no symptoms Respiratory: Reports: dry cough, shortness of breath Cardiovascular: Reports: no symptoms Gastrointestinal/Abdominal: Reports: no symptoms Allergies: Coded Allergies: PNEUMOCOCCAL VACCINE (Unverified Allergy, Unknown, 10/07/18) Uncoded Allergies: PNA VACCINE (Allergy, Unknown, 09/30/19) Objective Last 24 Hour Vital Signs Date Time Temp Pulse Resp B/P (MAP) Pulse Ox O2 Delivery O2 Flow Rate FiO2 10/02/19 09:49 68 117/67 10/02/19 09:00 Nasal Cannula 2.0 10/02/19 08:00 97.9 68 18 117/67 (84) 96 10/02/19 06:00 132/67 10/02/19 04:00 97.4 74 18 132/67 (88) 96 10/02/19 04:00 69 10/02/19 01:16 126/66 10/02/19 00:00 97.8 72 18 126/60 (82) 95 10/02/19 00:00 67 10/01/19 21:00 Nasal Cannula 2.0 10/01/19 20:00 97.9 75 18 129/65 (86) 94 10/01/19 20:00 71 10/01/19 17:23 110/60 10/01/19 16:00 98.1 63 18 110/60 (77) 96 10/01/19 16:00 60 10/01/19 13:06 116/68 10/01/19 12:00 72 10/01/19 12:00 98.0 66 18 116/68 (84) 95 Intake and Output 10/01/19 10/02/19 19:00 07:00 Output Total 800 ml 800 ml Balance -800 ml -800 ml Output Urine Total 800 ml 800 ml General Appearance: no acute distress HEENT: normocephalic Respiratory/Chest: chest wall non-tender, decreased breath sounds Cardiovascular: normal peripheral pulses, normal rate Abdomen: normal bowel sounds Microbiology Date/Time Source Procedure Growth Status 09/30/19 13:15 Blood Blood Culture - Preliminary NO GROWTH AFTER 24 HOURS Resulted 09/30/19 13:00 Blood Blood Culture - Preliminary Gram Negative Bacillus 1 Resulted 09/30/19 13:30 Nasal Nares MRSA Culture - Final NO METHICILLIN RESISTANT STAPH AUREUS... Complete 09/30/19 13:30 Nasopharynx Coronavirus COVID-19 PCR (BRENDA) - Final Complete 09/30/19 13:20 Nasal Nares - Final Complete 09/30/19 13:20 Nasal Nares - Final Complete 09/30/19 13:30 Rectum VRE Culture - Final Enterococcus Faecium - Vre Complete 09/30/19 13:30 Rectum Received Laboratory Tests 10/02/19 03:30: White Blood Count 11.6H, Red Blood Count 3.03L, Hemoglobin 9.8L, Hematocrit 30.0L, Mean Corpuscular Volume 99, Mean Corpuscular Hemoglobin 32.4H, Mean Corpuscular Hemoglobin Concent 32.7, Red Cell Distribution Width 14.4, Platelet Count 384, Mean Platelet Volume 5.2L, Neutrophils (%) (Auto) 59.8, Lymphocytes ( %) (Auto) 28.2, Monocytes (%) (Auto) 7.7, Eosinophils (%) (Auto) 2.3, Basophils (%) (Auto) 2.0, Sodium Level 148H, Potassium Level 3.8, Chloride Level 109H, Carbon Dioxide Level 32, Anion Gap 7, Blood Urea Nitrogen 15, Creatinine 0.7, Estimat Glomerular Filtration Rate > 60, Glucose Level 77, Calcium Level 10.0, Troponin I 0.001, Pro-B-Type Natriuretic Peptide 252H Current Medications Medications (Trade) Dose Ordered Sig/Nidhi Route PRN Reason Start Time Stop Time Status Last Admin Dose Admin Acetaminophen (Tylenol) 650 mg Q4H PRN GT Pain/Temp >100.5 10/01/19 03:30 10/30/19 23:29 Amlodipine Besylate (Norvasc) 10 mg DAILY GT 10/01/19 09:00 10/31/19 08:59 10/02/19 09:49 Ascorbic Acid (Vitamin C) 250 mg BID GT 10/01/19 09:00 10/31/19 08:59 10/02/19 09:49 Azithromycin 500 mg/Dextrose 275 ml @ 275 mls/hr Q24HRS IV 10/01/19 14:00 10/07/19 14:59 10/01/19 14:08 Cefepime HCl 1 gm/ Dextrose 55 ml @ 110 mls/hr Q24H IVPB 10/01/19 14:00 10/08/19 13:59 10/01/19 14:09 Clonidine HCl (Catapres Tab) 0.1 mg EVERY 6 HOURS GT 10/01/19 00:00 12/30/19 00:00 10/02/19 06:00 Dextrose (Dextrose 50%) 25 ml Q30M PRN IV Hypoglycemia 09/30/19 22:00 12/29/19 21:59 Dextrose (Dextrose 50%) 50 ml Q30M PRN IV Hypoglycemia 09/30/19 22:00 12/29/19 21:59 Docusate Sodium (Colace) 100 mg TWICE A DAY GT 10/01/19 09:00 10/31/19 08:59 10/02/19 09:49 Donepezil HCl (Aricept) 5 mg BEDTIME GT 10/01/19 21:00 10/31/19 20:59 10/01/19 21:37 Ferrous Sulfate (Feosol) 325 mg BID GT 10/01/19 09:00 12/30/19 08:59 10/02/19 09:49 Heparin Sodium (Porcine) (Heparin 5000 units/ml) 5,000 units EVERY 8 HOURS SUBQ 10/01/19 06:00 11/15/19 05:59 10/02/19 06:05 Insulin Aspart (NovoLOG) BEFORE MEALS AND HS SUBQ 09/30/19 21:51 12/29/19 21:50 Levetiracetam (Keppra) 500 mg Q12HR GT 10/01/19 09:00 11/15/19 08:59 10/02/19 09:48 Magnesium Hydroxide (Mom) 30 ml DAILY GT 10/01/19 09:00 10/31/19 08:59 10/02/19 09:49 Metoclopramide HCl (Reglan) 5 mg Q6H PRN IVP Nausea & Vomiting 10/02/19 09:45 11/01/19 09:44 Multivitamins (Multivitamins) 1 tab DAILY GT 10/01/19 09:00 10/31/19 08:59 10/02/19 09:49 Phenytoin (Dilantin) 300 mg DAILY GT 10/01/19 09:00 11/15/19 08:59 10/02/19 09:49 Sennosides (Senokot) 8.6 mg DAILY GT 10/01/19 09:00 10/31/19 08:59 10/02/19 09:49 Truman Bradford MD Oct 02, 2019 11:46
--- NOTE | 2019-10-02 11:48 | Infectious Diseases Prog Note ---
Assessment/Plan Assessment/Plan IMPRESSION: 1. Gram negative sepsis 2. Pneumonia. Negative COVID19 X 1 3. Unstageable pressure ulcer that doesn't seem to be infected . 4. Hypernatremia. 5. Anemia. 6. Advanced dementia. 7. History of diverticulosis. 8. Gastrostomy status. RECOMMENDATION: Continue cefepime and Zithromax. We will follow up cultures Repeat COVID-19 test Subjective ROS Limited/Unobtainable: Yes Allergies: Coded Allergies: PNEUMOCOCCAL VACCINE (Unverified Allergy, Unknown, 10/07/18) Uncoded Allergies: PNA VACCINE (Allergy, Unknown, 09/30/19) Objective Vital Signs Last 24 Hour Vital Signs Date Time Temp Pulse Resp B/P (MAP) Pulse Ox O2 Delivery O2 Flow Rate FiO2 10/02/19 09:49 68 117/67 10/02/19 09:00 Nasal Cannula 2.0 10/02/19 08:00 97.9 68 18 117/67 (84) 96 10/02/19 06:00 132/67 10/02/19 04:00 97.4 74 18 132/67 (88) 96 10/02/19 04:00 69 10/02/19 01:16 126/66 10/02/19 00:00 97.8 72 18 126/60 (82) 95 10/02/19 00:00 67 10/01/19 21:00 Nasal Cannula 2.0 10/01/19 20:00 97.9 75 18 129/65 (86) 94 10/01/19 20:00 71 10/01/19 17:23 110/60 10/01/19 16:00 98.1 63 18 110/60 (77) 96 10/01/19 16:00 60 10/01/19 13:06 116/68 10/01/19 12:00 72 10/01/19 12:00 98.0 66 18 116/68 (84) 95 Height (Feet): 6 Height (Inches): 0.00 Weight (Pounds): 160 General Appearance: no acute distress HEENT: mucous membranes moist Respiratory/Chest: lungs clear Cardiovascular: normal rate Abdomen: other - feeding Extremities: no edema Neurologic/Psychiatric: aphasia Microbiology Date/Time Source Procedure Growth Status 09/30/19 13:15 Blood Blood Culture - Preliminary NO GROWTH AFTER 24 HOURS Resulted 09/30/19 13:00 Blood Blood Culture - Preliminary Gram Negative Bacillus 1 Resulted 09/30/19 13:30 Nasal Nares MRSA Culture - Final NO METHICILLIN RESISTANT STAPH AUREUS... Complete 09/30/19 13:30 Nasopharynx Coronavirus COVID-19 PCR (BRENDA) - Final Complete 09/30/19 13:20 Nasal Nares - Final Complete 09/30/19 13:20 Nasal Nares - Final Complete 09/30/19 13:30 Rectum VRE Culture - Final Enterococcus Faecium - Vre Complete 09/30/19 13:30 Rectum Received Laboratory Tests Test 10/02/19 03:30 White Blood Count 11.6 K/UL (4.8-10.8) H Red Blood Count 3.03 M/UL (4.70-6.10) L Hemoglobin 9.8 G/DL (14.2-18.0) L Hematocrit 30.0 % (42.0-52.0) L Mean Corpuscular Volume 99 FL (80-99) Mean Corpuscular Hemoglobin 32.4 PG (27.0-31.0) H Mean Corpuscular Hemoglobin Concent 32.7 G/DL (32.0-36.0) Red Cell Distribution Width 14.4 % (11.6-14.8) Platelet Count 384 K/UL (150-450) Mean Platelet Volume 5.2 FL (6.5-10.1) L Neutrophils (%) (Auto) 59.8 % (45.0-75.0) Lymphocytes (%) (Auto) 28.2 % (20.0-45.0) Monocytes (%) (Auto) 7.7 % (1.0-10.0) Eosinophils (%) (Auto) 2.3 % (0.0-3.0) Basophils (%) (Auto) 2.0 % (0.0-2.0) Sodium Level 148 MMOL/L (136-145) H Potassium Level 3.8 MMOL/L (3.5-5.1) Chloride Level 109 MMOL/L (98-107) H Carbon Dioxide Level 32 MMOL/L (21-32) Anion Gap 7 mmol/L (5-15) Blood Urea Nitrogen 15 mg/dL (7-18) Creatinine 0.7 MG/DL (0.55-1.30) Estimat Glomerular Filtration Rate > 60 mL/min (>60) Glucose Level 77 MG/DL (74-106) Calcium Level 10.0 MG/DL (8.5-10.1) Troponin I 0.001 ng/mL (0.000-0.056) Pro-B-Type Natriuretic Peptide 252 pg/mL (0-125) H Current Medications Medications (Trade) Dose Ordered Sig/Nidhi Route PRN Reason Start Time Stop Time Status Last Admin Dose Admin Acetaminophen (Tylenol) 650 mg Q4H PRN GT Pain/Temp >100.5 10/01/19 03:30 10/30/19 23:29 Amlodipine Besylate (Norvasc) 10 mg DAILY GT 10/01/19 09:00 10/31/19 08:59 10/02/19 09:49 Ascorbic Acid (Vitamin C) 250 mg BID GT 10/01/19 09:00 10/31/19 08:59 10/02/19 09:49 Azithromycin 500 mg/Dextrose 275 ml @ 275 mls/hr Q24HRS IV 10/01/19 14:00 10/07/19 14:59 10/01/19 14:08 Cefepime HCl 1 gm/ Dextrose 55 ml @ 110 mls/hr Q24H IVPB 10/01/19 14:00 10/08/19 13:59 10/01/19 14:09 Clonidine HCl (Catapres Tab) 0.1 mg EVERY 6 HOURS GT 10/01/19 00:00 12/30/19 00:00 10/02/19 06:00 Dextrose (Dextrose 50%) 25 ml Q30M PRN IV Hypoglycemia 09/30/19 22:00 12/29/19 21:59 Dextrose (Dextrose 50%) 50 ml Q30M PRN IV Hypoglycemia 09/30/19 22:00 12/29/19 21:59 Docusate Sodium (Colace) 100 mg TWICE A DAY GT 10/01/19 09:00 10/31/19 08:59 10/02/19 09:49 Donepezil HCl (Aricept) 5 mg BEDTIME GT 10/01/19 21:00 10/31/19 20:59 10/01/19 21:37 Ferrous Sulfate (Feosol) 325 mg BID GT 10/01/19 09:00 12/30/19 08:59 10/02/19 09:49 Heparin Sodium (Porcine) (Heparin 5000 units/ml) 5,000 units EVERY 8 HOURS SUBQ 10/01/19 06:00 11/15/19 05:59 10/02/19 06:05 Insulin Aspart (NovoLOG) BEFORE MEALS AND HS SUBQ 09/30/19 21:51 12/29/19 21:50 Levetiracetam (Keppra) 500 mg Q12HR GT 10/01/19 09:00 11/15/19 08:59 10/02/19 09:48 Magnesium Hydroxide (Mom) 30 ml DAILY GT 10/01/19 09:00 10/31/19 08:59 10/02/19 09:49 Metoclopramide HCl (Reglan) 5 mg Q6H PRN IVP Nausea & Vomiting 10/02/19 09:45 11/01/19 09:44 Multivitamins (Multivitamins) 1 tab DAILY GT 10/01/19 09:00 10/31/19 08:59 10/02/19 09:49 Phenytoin (Dilantin) 300 mg DAILY GT 10/01/19 09:00 11/15/19 08:59 10/02/19 09:49 Sennosides (Senokot) 8.6 mg DAILY GT 10/01/19 09:00 10/31/19 08:59 10/02/19 09:49 Curtis Farah MD Oct 02, 2019 11:48
[2019-10-02 12:00] VITALS: BP 118/74
--- NOTE | 2019-10-02 12:11 | Hematology/Onc Progress Note ---
Assessment/Plan Assessment/Plan # Leukocytosis on admission, rule out covid, given snf hx of multiple covid patinets, with pna noted on imaging --> may be due to infection --> per id --> wbc 28->11.6 --> smear is noted --> abx cefepime/azithro # Hypercalcemia r/o malignancy, r/o myeloma, elevated on admission, may be 2/2 dehydration --> Ca 10.7, pth is wnl, spep is also wnl as is upep --> on iv fluids as per pcp --> renal eval prn --> pth on prior admission was 42 # Multiple lung nodules -- in 2017 2 cm pleural-based masslike opacity containing multiple nodular calcifications andadjacent parenchymal linear density persists in the anterolateral periphery of thelateral segment right middle lobe, unchanged. Adjacent small nodular parenchymaldensities persist, unchanged. --> pulm aware --> consider ct chest once better --> Dr. 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 Subjective Respiratory: Denies: no symptoms, cough, shortness of breath, SOB with excertion, SOB at rest, sputum, wheezing, other Gastrointestinal/Abdominal: Denies: no symptoms, abdomen distended, abdominal pain, black stools, tarry stools, blood in stool, constipated, diarrhea, difficulty swallowing, nausea, poor appetite, poor fluid intake, rectal bleeding , vomiting, other Genitourinary: Denies: no symptoms, burning, discharge, frequency, flank pain, hematuria, incontinence, pain, urgency, other Allergies: Coded Allergies: PNEUMOCOCCAL VACCINE (Unverified Allergy, Unknown, 10/07/18) Uncoded Allergies: PNA VACCINE (Allergy, Unknown, 09/30/19) All Systems: reviewed and negative except above Subjective 10/01 nonverbal, confused, to be npo, tube feeds on hold, no bleeding, meds reviewed Objective Objective Current Medications Medications (Trade) Dose Ordered Sig/Nidhi Route PRN Reason Start Time Stop Time Status Last Admin Dose Admin Acetaminophen (Tylenol) 650 mg Q4H PRN GT Pain/Temp >100.5 10/01/19 03:30 10/30/19 23:29 Amlodipine Besylate (Norvasc) 10 mg DAILY GT 10/01/19 09:00 10/31/19 08:59 10/02/19 09:49 Ascorbic Acid (Vitamin C) 250 mg BID GT 10/01/19 09:00 10/31/19 08:59 10/02/19 09:49 Azithromycin 500 mg/Dextrose 275 ml @ 275 mls/hr Q24HRS IV 10/01/19 14:00 10/07/19 14:59 10/01/19 14:08 Cefepime HCl 1 gm/ Dextrose 55 ml @ 110 mls/hr Q24H IVPB 10/01/19 14:00 10/08/19 13:59 10/01/19 14:09 Clonidine HCl (Catapres Tab) 0.1 mg EVERY 6 HOURS GT 10/01/19 00:00 12/30/19 00:00 10/02/19 12:03 Dextrose (Dextrose 50%) 25 ml Q30M PRN IV Hypoglycemia 09/30/19 22:00 12/29/19 21:59 Dextrose (Dextrose 50%) 50 ml Q30M PRN IV Hypoglycemia 09/30/19 22:00 12/29/19 21:59 Docusate Sodium (Colace) 100 mg TWICE A DAY GT 10/01/19 09:00 10/31/19 08:59 10/02/19 09:49 Donepezil HCl (Aricept) 5 mg BEDTIME GT 10/01/19 21:00 10/31/19 20:59 10/01/19 21:37 Ferrous Sulfate (Feosol) 325 mg BID GT 10/01/19 09:00 12/30/19 08:59 10/02/19 09:49 Heparin Sodium (Porcine) (Heparin 5000 units/ml) 5,000 units EVERY 8 HOURS SUBQ 10/01/19 06:00 11/15/19 05:59 10/02/19 06:05 Insulin Aspart (NovoLOG) BEFORE MEALS AND HS SUBQ 09/30/19 21:51 12/29/19 21:50 Levetiracetam (Keppra) 500 mg Q12HR GT 10/01/19 09:00 11/15/19 08:59 10/02/19 09:48 Magnesium Hydroxide (Mom) 30 ml DAILY GT 10/01/19 09:00 10/31/19 08:59 10/02/19 09:49 Metoclopramide HCl (Reglan) 5 mg Q6H PRN IVP Nausea & Vomiting 10/02/19 09:45 11/01/19 09:44 Multivitamins (Multivitamins) 1 tab DAILY GT 10/01/19 09:00 10/31/19 08:59 10/02/19 09:49 Phenytoin (Dilantin) 300 mg DAILY GT 10/01/19 09:00 11/15/19 08:59 10/02/19 09:49 Sennosides (Senokot) 8.6 mg DAILY GT 10/01/19 09:00 10/31/19 08:59 10/02/19 09:49 Last 24 Hour Vital Signs Date Time Temp Pulse Resp B/P (MAP) Pulse Ox O2 Delivery O2 Flow Rate FiO2 10/02/19 12:03 118/74 10/02/19 09:49 68 117/67 10/02/19 09:00 Nasal Cannula 2.0 10/02/19 08:00 97.9 68 18 117/67 (84) 96 10/02/19 06:00 132/67 10/02/19 04:00 97.4 74 18 132/67 (88) 96 10/02/19 04:00 69 10/02/19 01:16 126/66 10/02/19 00:00 97.8 72 18 126/60 (82) 95 10/02/19 00:00 67 10/01/19 21:00 Nasal Cannula 2.0 10/01/19 20:00 97.9 75 18 129/65 (86) 94 10/01/19 20:00 71 10/01/19 17:23 110/60 10/01/19 16:00 98.1 63 18 110/60 (77) 96 10/01/19 16:00 60 10/01/19 13:06 116/68 10/01/19 12:00 72 10/01/19 12:00 98.0 66 18 116/68 (84) 95 10/01/19 09:00 Nasal Cannula 2.0 10/01/19 08:59 62 110/70 10/01/19 08:00 75 10/01/19 08:00 97.8 62 18 110/70 (83) 93 10/01/19 06:07 116/72 10/01/19 04:00 88 10/01/19 04:00 97.5 65 18 116/72 (87) 97 10/01/19 00:45 128/76 10/01/19 00:00 76 10/01/19 00:00 97.6 72 19 128/76 (93) 100 09/30/19 21:50 Room Air 09/30/19 21:43 93 09/30/19 21:36 97.5 87 18 146/73 (97) 94 09/30/19 21:30 98.9 81 16 132/71 99 Room Air 09/30/19 21:00 99.9 81 16 132/71 99 Room Air 09/30/19 19:30 98.9 84 22 118/81 100 Room Air 09/30/19 18:25 99.9 75 22 124/79 100 Room Air 09/30/19 17:30 94 25 133/91 99 Room Air 09/30/19 15:32 101 28 141/85 99 Room Air 09/30/19 13:22 100.8 09/30/19 12:38 135 36 Room Air 09/30/19 12:28 100.6 135 36 140/98 (112) 97 Room Air Intake and Output 10/01/19 10/02/19 19:00 07:00 Output Total 800 ml 800 ml Balance -800 ml -800 ml Output Urine Total 800 ml 800 ml Labs Test 09/30/19 13:00 10/01/19 07:55 10/02/19 03:30 White Blood Count 28.2 K/UL (4.8-10.8) 14.7 K/UL (4.8-10.8) 11.6 K/UL (4.8-10.8) Red Blood Count 3.57 M/UL (4.70-6.10) 2.75 M/UL (4.70-6.10) 3.03 M/UL (4.70-6.10) Hemoglobin 11.7 G/DL (14.2-18.0) 8.8 G/DL (14.2-18.0) 9.8 G/DL (14.2-18.0) Hematocrit 35.6 % (42.0-52.0) 27.7 % (42.0-52.0) 30.0 % (42.0-52.0) Mean Corpuscular Volume 100 FL (80-99) 101 FL (80-99) 99 FL (80-99) Mean Corpuscular Hemoglobin 32.7 PG (27.0-31.0) 32.1 PG (27.0-31.0) 32.4 PG (27.0-31.0) Mean Corpuscular Hemoglobin Concent 32.8 G/DL (32.0-36.0) 31.9 G/DL (32.0-36.0) 32.7 G/DL (32.0-36.0) Red Cell Distribution Width 14.6 % (11.6-14.8) 14.4 % (11.6-14.8) 14.4 % (11.6-14.8) Platelet Count 507 K/UL (150-450) 369 K/UL (150-450) 384 K/UL (150-450) Mean Platelet Volume 5.1 FL (6.5-10.1) 5.2 FL (6.5-10.1) 5.2 FL (6.5-10.1) Neutrophils (%) (Auto) % (45.0-75.0) 75.3 % (45.0-75.0) 59.8 % (45.0-75.0) Lymphocytes (%) (Auto) % (20.0-45.0) 17.3 % (20.0-45.0) 28.2 % (20.0-45.0) Monocytes (%) (Auto) % (1.0-10.0) 4.7 % (1.0-10.0) 7.7 % (1.0-10.0) Eosinophils (%) (Auto) % (0.0-3.0) 1.1 % (0.0-3.0) 2.3 % (0.0-3.0) Basophils (%) (Auto) % (0.0-2.0) 1.5 % (0.0-2.0) 2.0 % (0.0-2.0) Differential Total Cells Counted 100 Neutrophils % (Manual) 85 % (45-75) Lymphocytes % (Manual) 10 % (20-45) Monocytes % (Manual) 5 % (1-10) Eosinophils % (Manual) 0 % (0-3) Basophils % (Manual) 0 % (0-2) Band Neutrophils 0 % (0-8) Platelet Estimate Adequate Platelet Morphology Normal Red Blood Cell Morphology Normal Urine Color Yellow Urine Appearance Clear Urine pH 8 (4.5-8.0) Urine Specific Embarrass 1.015 (1.005-1.035) Urine Protein 2+ (NEGATIVE) Urine Glucose (UA) Negative (NEGATIVE) Urine Ketones Negative (NEGATIVE) Urine Blood Negative (NEGATIVE) Urine Nitrite Negative (NEGATIVE) Urine Bilirubin Negative (NEGATIVE) Urine Urobilinogen Normal MG/DL (0.0-1.0) Urine Leukocyte Esterase 1+ (NEGATIVE) Urine RBC 0-2 /HPF (0 - 0) Urine WBC 2-4 /HPF (0 - 0) Urine Squamous Epithelial Cells Occasional /LPF Urine Bacteria Occasional /HPF (NONE) Sodium Level 152 MMOL/L (136-145) 150 MMOL/L (136-145) 148 MMOL/L (136-145) Potassium Level 4.0 MMOL/L (3.5-5.1) 3.5 MMOL/L (3.5-5.1) 3.8 MMOL/L (3.5-5.1) Chloride Level 107 MMOL/L (98-107) 111 MMOL/L (98-107) 109 MMOL/L (98-107) Carbon Dioxide Level 37 MMOL/L (21-32) 32 MMOL/L (21-32) 32 MMOL/L (21-32) Anion Gap 9 mmol/L (5-15) 8 mmol/L (5-15) 7 mmol/L (5-15) Blood Urea Nitrogen 25 mg/dL (7-18) 16 mg/dL (7-18) 15 mg/dL (7-18) Creatinine 0.8 MG/DL (0.55-1.30) 0.7 MG/DL (0.55-1.30) 0.7 MG/DL (0.55-1.30) Estimat Glomerular Filtration Rate > 60 mL/min (>60) > 60 mL/min (>60) > 60 mL/min (>60) Glucose Level 149 MG/DL (74-106) 153 MG/DL (74-106) 77 MG/DL (74-106) Lactic Acid Level 1.10 mmol/L (0.4-2.0) Calcium Level 10.7 MG/DL (8.5-10.1) 9.7 MG/DL (8.5-10.1) 10.0 MG/DL (8.5-10.1) Total Bilirubin 0.3 MG/DL (0.2-1.0) Aspartate Amino Transf (AST/SGOT) 36 U/L (15-37) Alanine Aminotransferase (ALT/SGPT) 26 U/L (12-78) Alkaline Phosphatase 147 U/L (46-116) Troponin I 0.015 ng/mL (0.000-0.056) 0.001 ng/mL (0.000-0.056) Pro-B-Type Natriuretic Peptide 392 pg/mL (0-125) 252 pg/mL (0-125) Total Protein 9.0 G/DL (6.4-8.2) Albumin 2.8 G/DL (3.4-5.0) Globulin 6.2 g/dL Albumin/Globulin Ratio 0.5 (1.0-2.7) Height (Feet): 6 Height (Inches): 0.00 Weight (Pounds): 160 Objective vitals: noted gen: nonverbal pulm: ctab, some crackles left side heent; nc, at, eomi Cv: rrr, no mgr abd: soft, nt, nd+gtube ext: no cce Ignacio Ponce MD Oct 02, 2019 12:11
--- NOTE | 2019-10-02 13:05 | Cardiac Electrophysiology PN ---
Assessment/Plan Assessment/Plan 1. Tachycardia, likely due to pneumonia and dehydration. Sodium was 150 and white count [place] [address]. The patient is orally on cefepime and azithromycin. Start D5 1/2 ns at 80 cc/hr 2. Hypertension on amlodipine 10 mg daily. 3. Shortness of breath, fever, and high white count. On IV antibiotic and being ruled out for COVID and isolation( first Covid is negative). 4. History of seizures, on Keppra. 5. Dysphagia, status post PEG placement. 6. Hypernatremia and dehydration. Start D51/2 at 80 cc/hr DW RN Subjective Subjective In isolation for Covid (negative x1. Swabbed again today). In SR Objective Last 24 Hour Vital Signs Date Time Temp Pulse Resp B/P (MAP) Pulse Ox O2 Delivery O2 Flow Rate FiO2 10/02/19 12:03 118/74 10/02/19 09:49 68 117/67 10/02/19 09:00 Nasal Cannula 2.0 10/02/19 08:00 97.9 68 18 117/67 (84) 96 10/02/19 07:38 64 10/02/19 06:00 132/67 10/02/19 04:00 97.4 74 18 132/67 (88) 96 10/02/19 04:00 69 10/02/19 01:16 126/66 10/02/19 00:00 97.8 72 18 126/60 (82) 95 10/02/19 00:00 67 10/01/19 21:00 Nasal Cannula 2.0 10/01/19 20:00 97.9 75 18 129/65 (86) 94 10/01/19 20:00 71 10/01/19 17:23 110/60 10/01/19 16:00 98.1 63 18 110/60 (77) 96 10/01/19 16:00 60 10/01/19 13:06 116/68 Intake and Output 10/01/19 10/02/19 19:00 07:00 Output Total 800 ml 800 ml Balance -800 ml -800 ml Output Urine Total 800 ml 800 ml Laboratory Tests Test 10/02/19 03:30 White Blood Count 11.6 K/UL (4.8-10.8) H Red Blood Count 3.03 M/UL (4.70-6.10) L Hemoglobin 9.8 G/DL (14.2-18.0) L Hematocrit 30.0 % (42.0-52.0) L Mean Corpuscular Volume 99 FL (80-99) Mean Corpuscular Hemoglobin 32.4 PG (27.0-31.0) H Mean Corpuscular Hemoglobin Concent 32.7 G/DL (32.0-36.0) Red Cell Distribution Width 14.4 % (11.6-14.8) Platelet Count 384 K/UL (150-450) Mean Platelet Volume 5.2 FL (6.5-10.1) L Neutrophils (%) (Auto) 59.8 % (45.0-75.0) Lymphocytes (%) (Auto) 28.2 % (20.0-45.0) Monocytes (%) (Auto) 7.7 % (1.0-10.0) Eosinophils (%) (Auto) 2.3 % (0.0-3.0) Basophils (%) (Auto) 2.0 % (0.0-2.0) Sodium Level 148 MMOL/L (136-145) H Potassium Level 3.8 MMOL/L (3.5-5.1) Chloride Level 109 MMOL/L (98-107) H Carbon Dioxide Level 32 MMOL/L (21-32) Anion Gap 7 mmol/L (5-15) Blood Urea Nitrogen 15 mg/dL (7-18) Creatinine 0.7 MG/DL (0.55-1.30) Estimat Glomerular Filtration Rate > 60 mL/min (>60) Glucose Level 77 MG/DL (74-106) Calcium Level 10.0 MG/DL (8.5-10.1) Troponin I 0.001 ng/mL (0.000-0.056) Pro-B-Type Natriuretic Peptide 252 pg/mL (0-125) H Microbiology Date/Time Source Procedure Growth Status 09/30/19 13:15 Blood Blood Culture - Preliminary NO GROWTH AFTER 24 HOURS Resulted 09/30/19 13:00 Blood Blood Culture - Preliminary Gram Negative Bacillus 1 Resulted 09/30/19 13:30 Nasal Nares MRSA Culture - Final NO METHICILLIN RESISTANT STAPH AUREUS... Complete 09/30/19 13:30 Nasopharynx Coronavirus COVID-19 PCR (BRENDA) - Final Complete 09/30/19 13:20 Nasal Nares - Final Complete 09/30/19 13:20 Nasal Nares - Final Complete 09/30/19 13:30 Rectum VRE Culture - Final Enterococcus Faecium - Vre Complete 09/30/19 13:30 Rectum Received Objective HEAD AND NECK: No JVD. LUNGS: Coarse rhonchi. CARDIOVASCULAR: Regular S1 and S2 with no gallop. ABDOMEN: Status post G-tube. EXTREMITIES: No pitting edema. Sajan Campbell MD Oct 02, 2019 13:05
[2019-10-02] MEDS: D5 1/2NS 1,000 ML IV SCH (13:19)
--- NOTE | 2019-10-02 13:52 | Diagnostic Imaging Report ---
Indication: Abdominal pain Technique: Supine view of the abdomen Comparison: 05/19/2019 Findings: There is a gastrostomy tube in place. Previously demonstrated nasogastric tube is no longer evident. Bowel gas pattern is unremarkable. No masses or unusual calcifications. There is evidence of a Macedo catheter. There is a right hip prosthesis. There are degenerative changes of the lumbar spine Impression: No acute process. Findings as noted
[2019-10-02] MEDS: Azithromycin 500 MG in D5W 275 ML IV SCH (14:20)
[2019-10-02] MEDS: Cefepime HCl 1 GM in D5W 55 ML IVPB SCH (14:21)
--- NOTE | 2019-10-02 15:59 | Consultation ---
History of Present Illness General Date patient seen: Oct 02, 2019 Chief Complaint: General Complaint Present Illness HPI This is a 69-year-old male with multiple medical comorbidities who presents to [facility] ED for evaluation of fever, tachycardia, high wbc, and fevers. patient is [place] a [place] [facility]. Symptoms started x1 day prior to admission. Patient nonverbal at baseline. Unable to provide any additional history at this time. Concern for COVID at facility. Patient currently being treated for pneumonia. noted to have leukocytosis, malnutrition, and decubitus wounds. surgery called to evaluate and assist with care. Allergies: Coded Allergies: PNEUMOCOCCAL VACCINE (Unverified Allergy, Unknown, 10/07/18) Uncoded Allergies: PNA VACCINE (Allergy, Unknown, 09/30/19) Medication History Scheduled Amlodipine Besylate* (Amlodipine Besylate*), 10 MG ORAL DAILY, (Reported) Ascorbic Acid* (Ascorbic Acid*), 250 MG ORAL DAILY, (Reported) Benztropine Mesylate (Cogentin), 0.5 MG PO BID, (Reported) Clonidine Hcl* (Catapres*), 0.1 MG ORAL EVERY 6 HOURS, (Reported) Docusate Sodium* (Docusate Sodium*), 100 MG ORAL TWICE A DAY, (Reported) Donepezil Hcl* (Donepezil Hcl*), 5 MG ORAL HS, (Reported) Donepezil Hcl* (Donepezil Hcl*), 5 MG ORAL DAILY, (Reported) Enoxaparin* (Lovenox*), 40 MG SUBQ DAILY, (Reported) Famotidine* (Pepcid 20mg tablet*), 20 MG ORAL DAILY, (Reported) Ferrous Sulfate* (Ferrous Sulfate*), 325 MG ORAL DAILY, (Reported) Heparin Sod (Porcine) (Heparin Sodium*), 5,000 UNITS SUBQ EVERY 12 HOURS, ( Reported) Levetiracetam (Keppra), 1,500 MG PO BID, (Reported) Levetiracetam (Keppra), 1,500 MG ORAL EVERY 12 HOURS, (Reported) Levetiracetam (Keppra), 500 MG ORAL EVERY 12 HOURS, (Reported) Levofloxacin* (Levaquin*), 750 MG ORAL DAILY, (Reported) Linezolid* (Zyvox*), 600 MG ORAL EVERY 12 HOURS, (Reported) Magnesium Hydroxide (Milk of Magnesia), 30 ML ORAL DAILY, (Reported) Mirtazapine (Remeron), 7.5 MG ORAL BEDTIME, (Reported) Quetiapine Fumarate* (Seroquel*), 100 MG ORAL TWICE A DAY, (Reported) Scheduled PRN Acetaminophen* (Acetaminophen 325MG Tablet*), 650 MG ORAL Q4H PRN for For Pain, (Reported) Miscellaneous Medications Insulin Lispro (Humalog), 0 SUBQ, (Reported) Patient History Limited by: medical condition History Provided By: Medical Record, PMD Healthcare decision maker Resuscitation status Do Not Resuscitate Advanced Directive on File Past Medical/Surgical History Past Medical/Surgical History: (1) Dehydration (2) Dysphagia (3) PEG (percutaneous endoscopic gastrostomy) adjustment/replacement/removal (4) Protein-calorie malnutrition, severe (5) Fever (6) Hypercalcemia (7) Decubitus skin ulcer (8) Leukocytosis (9) Schizophrenia (10) Syncope (11) Lung mass (12) UTI (urinary tract infection) (13) Head injury (14) Lactic acid acidosis (15) Severe sepsis (16) HCAP (healthcare-associated pneumonia) (17) Congestion secondary to upper respiratory illness (18) COPD (chronic obstructive pulmonary disease) (19) Acute febrile illness (20) Tachycardia (21) PNA (pneumonia) (22) Suspected COVID-19 virus infection Review of Systems ROS Narrative cannot obtain given medical condition Physical Exam General Appearance: no apparent distress Lines, tubes and drains: peripheral HEENT: atraumatic, anicteric, mucous membranes moist Neck: supple, normal inspection Respiratory/Chest: no respiratory distress, no accessory muscle use, decreased breath sounds Cardiovascular/Chest: tachycardia Abdomen: soft, no organomegaly, no mass, other Extremities: inflammation, slow capillary refill Skin Exam: warm/dry Neurologic: unresponsiveness Last 24 Hour Vital Signs Date Time Temp Pulse Resp B/P (MAP) Pulse Ox O2 Delivery O2 Flow Rate FiO2 10/02/19 12:03 118/74 10/02/19 12:00 97.7 68 18 118/74 (89) 100 10/02/19 09:49 68 117/67 10/02/19 09:00 Nasal Cannula 2.0 10/02/19 08:00 97.9 68 18 117/67 (84) 96 10/02/19 07:38 64 10/02/19 06:00 132/67 10/02/19 04:00 97.4 74 18 132/67 (88) 96 10/02/19 04:00 69 10/02/19 01:16 126/66 10/02/19 00:00 97.8 72 18 126/60 (82) 95 10/02/19 00:00 67 10/01/19 21:00 Nasal Cannula 2.0 10/01/19 20:00 97.9 75 18 129/65 (86) 94 10/01/19 20:00 71 10/01/19 17:23 110/60 10/01/19 16:00 98.1 63 18 110/60 (77) 96 10/01/19 16:00 60 Intake and Output 10/01/19 10/02/19 19:00 07:00 Output Total 800 ml 800 ml Balance -800 ml -800 ml Output Urine Total 800 ml 800 ml Laboratory Tests Test 10/02/19 03:30 White Blood Count 11.6 K/UL (4.8-10.8) H Red Blood Count 3.03 M/UL (4.70-6.10) L Hemoglobin 9.8 G/DL (14.2-18.0) L Hematocrit 30.0 % (42.0-52.0) L Mean Corpuscular Volume 99 FL (80-99) Mean Corpuscular Hemoglobin 32.4 PG (27.0-31.0) H Mean Corpuscular Hemoglobin Concent 32.7 G/DL (32.0-36.0) Red Cell Distribution Width 14.4 % (11.6-14.8) Platelet Count 384 K/UL (150-450) Mean Platelet Volume 5.2 FL (6.5-10.1) L Neutrophils (%) (Auto) 59.8 % (45.0-75.0) Lymphocytes (%) (Auto) 28.2 % (20.0-45.0) Monocytes (%) (Auto) 7.7 % (1.0-10.0) Eosinophils (%) (Auto) 2.3 % (0.0-3.0) Basophils (%) (Auto) 2.0 % (0.0-2.0) Sodium Level 148 MMOL/L (136-145) H Potassium Level 3.8 MMOL/L (3.5-5.1) Chloride Level 109 MMOL/L (98-107) H Carbon Dioxide Level 32 MMOL/L (21-32) Anion Gap 7 mmol/L (5-15) Blood Urea Nitrogen 15 mg/dL (7-18) Creatinine 0.7 MG/DL (0.55-1.30) Estimat Glomerular Filtration Rate > 60 mL/min (>60) Glucose Level 77 MG/DL (74-106) Calcium Level 10.0 MG/DL (8.5-10.1) Troponin I 0.001 ng/mL (0.000-0.056) Pro-B-Type Natriuretic Peptide 252 pg/mL (0-125) H Height (Feet): 6 Height (Inches): 0.00 Weight (Pounds): 160 Medications Current Medications Medications (Trade) Dose Ordered Sig/Nidhi Route PRN Reason Start Time Stop Time Status Last Admin Dose Admin Acetaminophen (Tylenol) 650 mg Q4H PRN GT Pain/Temp >100.5 10/01/19 03:30 10/30/19 23:29 Amlodipine Besylate (Norvasc) 10 mg DAILY GT 10/01/19 09:00 10/31/19 08:59 10/02/19 09:49 Ascorbic Acid (Vitamin C) 250 mg BID GT 10/01/19 09:00 10/31/19 08:59 10/02/19 09:49 Azithromycin 500 mg/Dextrose 275 ml @ 275 mls/hr Q24HRS IV 10/01/19 14:00 10/07/19 14:59 10/02/19 14:20 Cefepime HCl 1 gm/ Dextrose 55 ml @ 110 mls/hr Q24H IVPB 10/01/19 14:00 10/08/19 13:59 10/02/19 14:21 Clonidine HCl (Catapres Tab) 0.1 mg EVERY 6 HOURS GT 10/01/19 00:00 12/30/19 00:00 10/02/19 12:03 Dextrose (Dextrose 50%) 25 ml Q30M PRN IV Hypoglycemia 09/30/19 22:00 12/29/19 21:59 Dextrose (Dextrose 50%) 50 ml Q30M PRN IV Hypoglycemia 09/30/19 22:00 12/29/19 21:59 Dextrose/Sodium Chloride 1,000 ml @ 80 mls/hr [id number] IV 10/02/19 13:15 11/01/19 13:14 10/02/19 13:19 Docusate Sodium (Colace) 100 mg TWICE A DAY GT 10/01/19 09:00 10/31/19 08:59 10/02/19 09:49 Donepezil HCl (Aricept) 5 mg BEDTIME GT 10/01/19 21:00 10/31/19 20:59 10/01/19 21:37 Ferrous Sulfate (Feosol) 325 mg BID GT 10/01/19 09:00 12/30/19 08:59 10/02/19 09:49 Heparin Sodium (Porcine) (Heparin 5000 units/ml) 5,000 units EVERY 8 HOURS SUBQ 10/01/19 06:00 11/15/19 05:59 10/02/19 14:19 Insulin Aspart (NovoLOG) BEFORE MEALS AND HS SUBQ 09/30/19 21:51 12/29/19 21:50 Levetiracetam (Keppra) 500 mg Q12HR GT 10/01/19 09:00 11/15/19 08:59 10/02/19 09:48 Magnesium Hydroxide (Mom) 30 ml DAILY GT 10/01/19 09:00 10/31/19 08:59 10/02/19 09:49 Metoclopramide HCl (Reglan) 5 mg Q6H PRN IVP Nausea & Vomiting 10/02/19 09:45 11/01/19 09:44 Multivitamins (Multivitamins) 1 tab DAILY GT 10/01/19 09:00 10/31/19 08:59 10/02/19 09:49 Phenytoin (Dilantin) 300 mg DAILY GT 10/01/19 09:00 11/15/19 08:59 10/02/19 09:49 Sennosides (Senokot) 8.6 mg DAILY GT 10/01/19 09:00 10/31/19 08:59 10/02/19 09:49 Assessment/Plan Problem List: (1) Decubitus skin ulcer Assessment & Plan: Pt presented on admission with multiple pressure injuries. Resolving pressure injury cleft of R ear. [place] epithelial at base of wound with marginal erythema. Non-blanching erythema cleft of L ear. Pt is receiving o2 via nasal cannula, and oxygen tubing padded with gauze to minimize pressure and friction to both ears. Unstageable Sacral Pressure Injury(L)9.4cm x (W)7.8cm. Base of wound is 75% necrotic and and soft, 20% surrounding slough,Marginal erythema and macerated borders. Mild odor noted. Small amt seropurulent exudate.Periwound,skin tone is darker without elevation in skin temp, fluctuance or induration.small area of hyperpigmentation noted to L gluteal cheek. L Heel extending into plantar aspect is boggy with non-blanching erythema. Non-blanching erythema R heel without induration or fluctuance. Xerosis skin both feet. Tx.Plan: Cleanse Sacral wound with Saline. Apply Therahoney. Apply Moisture Barrier Paste periwound. Cover with Optifoam Drsg. Change every 3 days and prn. Apply Moisture Barrier paste to Perineum, R and L buttocks with each incontinence care. Apply Cavilon Skin Barrier to both heels. Cover each heel with Optifoam drsg. Change every 7 days and prn. Apply Cavilon Skin Barrier to clefts of both R and L ears Daily. Pad Oxygen tubing with gauze around Ears. Keep Oxygen tubing loose around Ears. Reposition at least every 2hours or as tolerated. Off-load heels with pillow. APM/CHRISTOPHER Mattress overlay. ICD Codes: L89.90 - Pressure ulcer of unspecified site, unspecified stage SNOMED: 238923112 (2) Leukocytosis Assessment & Plan: leukocytosis 28k on admission trending down on abx wounds unlikely etiology pna ua noted cont abx as per id will follow with recs thank you ICD Codes: D72.829 - Elevated white blood cell count, unspecified SNOMED: 589956585, 939115758 (3) Lung mass ICD Codes: R91.8 - Other nonspecific abnormal finding of lung field SNOMED: 674664656 (4) Protein-calorie malnutrition, severe Assessment & Plan: There is a gastrostomy tube in place. Previously demonstrated nasogastric tube is no longer evident. Bowel gas pattern is unremarkable. No masses or unusual calcifications. There is evidence of a Macedo catheter. There is a right hip prosthesis. There are degenerative changes of the lumbar spine nutritional optimization tube feeds bmi noted alb low ICD Codes: E43 - Unspecified severe protein-calorie malnutrition SNOMED: 556283189 (5) Suspected COVID-19 virus infection Assessment & Plan: covid negative Right basilar consolidation and atelectasis, could indicate pneumonia. Minimal left basilar atelectasis ICD Codes: Z20.828 - Contact with and (suspected) exposure to other viral communicable diseases SNOMED: 480163128 Gabino Little Oct 02, 2019 15:59
[2019-10-02 16:00] VITALS: BP 108/66
--- NOTE | 2019-10-02 16:29 | Consultation ---
DATE OF CONSULTATION: 10/02/2019 CONSULTING PHYSICIAN: Terence Anton M.D. CHIEF COMPLAINT: Malfunction G-tube, high residuals. HISTORY OF PRESENT ILLNESS: Most of history per chart. Patient is nonverbal. This is a 69-year-old male, [facility] with fever, concerned for COVID positive. Patient has a G-tube for dysphagia. Apparently, residuals were high and GI consult requested for evaluation. PAST MEDICAL HISTORY: 1. Hypertension. 2. Diabetes. 3. COPD. 4. History of pacemaker placement. 5. Dementia. ALLERGIES: To pneumo vaccine. PAST SURGICAL HISTORY: Pacemaker placement. MEDICATIONS: Please see medication reconciliation list. SOCIAL HISTORY: Currently lives in a jail. No history of tobacco, alcohol, drug abuse. FAMILY HISTORY: Noncontributory. REVIEW OF SYSTEMS: Unable to obtain. PHYSICAL EXAMINATION: VITAL SIGNS: Temperature is 97.9, pulse 68, respirations 18, blood pressure is 170/61. HEENT: Normocephalic, atraumatic. Mild pale conjunctivae. NECK: Supple. No evidence of obvious lymphadenopathy. CARDIOVASCULAR: Regular rate and rhythm. Plus S1 and S2. Pacemaker in place. LUNGS: Decreased breath sounds bilaterally based on the supine exam. ABDOMEN: Soft, nontender. G-tube in place. No rebound. No guarding. No peritoneal sign. EXTREMITIES: No cyanosis. No clubbing. LABORATORY DATA: White count is 11.6, hemoglobin 9.8, hematocrit 30, platelet count is 384. Chem-7, sodium 148, potassium 3.8, BUN is 15, creatinine 0.7. ASSESSMENT: This is a 69-year-old male, jail patient admitted to the hospital with possible COVID, now with malfunctioning G-tube with elevated residuals. PLAN: Start patient on low-dose Reglan. Given history of diabetes, patient might be suffering from diabetic gastroparesis and in the setting of the sepsis with white count elevation up to about 20,000 on admission may have contributed to gastroparesis. Plan to start low-dose Reglan 5 mg IV q.6. Monitor for residuals. Start tube feeding Glytrol 1.5 and start at 10 and increase to 50 as tolerated. We are also going to order KUB to rule out any constipation or bowel obstruction causing elevated residuals. Terence Kam Anton DR: KINGS JOB#: [id number] CC:
[2019-10-02] MEDS ORDERED: ALBUTEROL2.5 MG/3 M INH (19:49)
[2019-10-02] MEDS ORDERED: ARTIFICIAL TEAR15 ML BOTH EYES (19:51)
[2019-10-02] MEDS ORDERED: ASCORBIC ACID PO (19:53)
[2019-10-02] MEDS ORDERED: COLACE100 MG/10 GT (19:56)
[2019-10-02 20:00] VITALS: BP 123/96
[2019-10-02] MEDS ORDERED: DUONEB 0.5-3(2.53 ML HHN (20:12)
[2019-10-02] MEDS ORDERED: MULTIVITAMINS1 EAC2 GT (20:17)
[2019-10-02] MEDS ORDERED: ZOFRAN4 M3 GT (20:18)
[2019-10-02] MEDS ORDERED: PHENYTOIN100 MG/4 M GT (20:22)
--- NOTE | 2019-10-02 20:23 | General Progress Note ---
Assessment/Plan Problem List: (1) Fever ICD Codes: R50.9 - Fever, unspecified SNOMED: 816361979 (2) COPD (chronic obstructive pulmonary disease) ICD Codes: J44.9 - Chronic obstructive pulmonary disease, unspecified SNOMED: 27237481 (3) Severe sepsis ICD Codes: A41.9 - Sepsis, unspecified organism; R65.20 - Severe sepsis without septic shock SNOMED: 59848002 (4) PEG (percutaneous endoscopic gastrostomy) adjustment/replacement/removal ICD Codes: Z43.1 - Encounter for attention to gastrostomy SNOMED: 741285449, 481169760 (5) Protein-calorie malnutrition, severe ICD Codes: E43 - Unspecified severe protein-calorie malnutrition SNOMED: 056013159 (6) Acute febrile illness ICD Codes: R50.9 - Fever, unspecified SNOMED: 863508659 (7) PNA (pneumonia) ICD Codes: J18.9 - Pneumonia, unspecified organism SNOMED: 073282495 (8) Suspected COVID-19 virus infection ICD Codes: Z20.828 - Contact with and (suspected) exposure to other viral communicable diseases SNOMED: 887951780 (9) Congestion secondary to upper respiratory illness Assessment/Plan: pna sepsis resp insuff supportive therapy afebrile nonverbal reviewed chart and labs Subjective ROS Limited/Unobtainable: Yes Allergies: Coded Allergies: PNEUMOCOCCAL VACCINE (Unverified Allergy, Unknown, 10/07/18) Uncoded Allergies: PNA VACCINE (Allergy, Unknown, 09/30/19) Objective Last 24 Hour Vital Signs Date Time Temp Pulse Resp B/P (MAP) Pulse Ox O2 Delivery O2 Flow Rate FiO2 10/02/19 17:19 108/66 10/02/19 16:25 60 10/02/19 16:00 97.9 65 18 108/66 (80) 99 10/02/19 12:03 118/74 10/02/19 12:00 97.7 68 18 118/74 (89) 100 10/02/19 11:42 65 10/02/19 09:49 68 117/67 10/02/19 09:00 Nasal Cannula 2.0 10/02/19 08:00 97.9 68 18 117/67 (84) 96 10/02/19 07:38 64 10/02/19 06:00 132/67 10/02/19 04:00 97.4 74 18 132/67 (88) 96 10/02/19 04:00 69 10/02/19 01:16 126/66 10/02/19 00:00 97.8 72 18 126/60 (82) 95 10/02/19 00:00 67 10/01/19 21:00 Nasal Cannula 2.0 Intake and Output 10/01/19 10/02/19 19:00 07:00 Output Total 800 ml 800 ml Balance -800 ml -800 ml Output Urine Total 800 ml 800 ml Laboratory Tests 10/02/19 03:30: White Blood Count 11.6H, Red Blood Count 3.03L, Hemoglobin 9.8L, Hematocrit 30.0L, Mean Corpuscular Volume 99, Mean Corpuscular Hemoglobin 32.4H, Mean Corpuscular Hemoglobin Concent 32.7, Red Cell Distribution Width 14.4, Platelet Count 384, Mean Platelet Volume 5.2L, Neutrophils (%) (Auto) 59.8, Lymphocytes ( %) (Auto) 28.2, Monocytes (%) (Auto) 7.7, Eosinophils (%) (Auto) 2.3, Basophils (%) (Auto) 2.0, Sodium Level 148H, Potassium Level 3.8, Chloride Level 109H, Carbon Dioxide Level 32, Anion Gap 7, Blood Urea Nitrogen 15, Creatinine 0.7, Estimat Glomerular Filtration Rate > 60, Glucose Level 77, Calcium Level 10.0, Troponin I 0.001, Pro-B-Type Natriuretic Peptide 252H Height (Feet): 6 Height (Inches): 0.00 Weight (Pounds): 160 Konrad Soares MD Oct 02, 2019 20:23
[2019-10-02] MEDS ORDERED: SANTYL OINT TP (20:24)
[2019-10-02] MEDS ORDERED: SENNO8.6 MG GT (20:26)
[2019-10-02] MEDS ORDERED: ZINC SULFATE220 M1 GT (20:27)
[2019-10-02] MEDS: Donepezil 5mg Tab GT SCH (21:10)
[2019-10-03] VITALS: BP 135/82
[2019-10-03 04:00] VITALS: BP 129/85
[2019-10-03] MEDS: D5 1/2NS 1,000 ML IV SCH ×2 (05:39→14:12)
[2019-10-03] MEDS: Heparin 5000 units/ml inj SUBQ SCH ×3 (05:51→21:07)
[2019-10-03] MEDS: NovoLOG Insulin Flexpen SUBQ SCH ×4 (06:17→20:41)
--- NOTE | 2019-10-03 06:41 | Hematology/Onc Progress Note ---
Assessment/Plan Assessment/Plan # Leukocytosis on admission, rule out covid, given snf hx of multiple covid patinets, with pna noted on imaging --> may be due to infection --> per id --> wbc 28->11.6 --> smear is noted --> abx cefepime/azithro # Hypercalcemia r/o malignancy, r/o myeloma, elevated on admission, may be 2/2 dehydration --> Ca 10.7, pth is wnl, spep is also wnl as is upep --> on iv fluids as per pcp --> renal eval prn --> pth on prior admission was 42 # Multiple lung nodules -- in 2017 2 cm pleural-based masslike opacity containing multiple nodular calcifications andadjacent parenchymal linear density persists in the anterolateral periphery of thelateral segment right middle lobe, unchanged. Adjacent small nodular parenchymaldensities persist, unchanged. --> pulm aware --> consider ct chest once better --> Dr. 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 Subjective Constitutional: Denies: no symptoms, chills, fever, malaise, weakness, other HEENT: Denies: no symptoms, eye pain, blurred vision, tearing, double vision, ear pain, ear discharge, nose pain, nose congestion, throat pain, throat swelling, mouth pain, mouth swelling, other Cardiovascular: Denies: no symptoms, chest pain, edema, irregular heart rate, lightheadedness, palpitations, syncope, other Respiratory: Denies: no symptoms, cough, shortness of breath, SOB with excertion, SOB at rest, sputum, wheezing, other Gastrointestinal/Abdominal: Denies: no symptoms, abdomen distended, abdominal pain, black stools, tarry stools, blood in stool, constipated, diarrhea, difficulty swallowing, nausea, poor appetite, poor fluid intake, rectal bleeding , vomiting, other Genitourinary: Denies: no symptoms, burning, discharge, frequency, flank pain, hematuria, incontinence, pain, urgency, other Neurologic/Psychiatric: Denies: no symptoms, anxiety, depressed, emotional problems, headache, numbness, paresthesia, pre-existing deficit, seizure, tingling, tremors, weakness, other Allergies: Coded Allergies: PNEUMOCOCCAL VACCINE (Unverified Allergy, Unknown, 10/07/18) Uncoded Allergies: PNA VACCINE (Allergy, Unknown, 09/30/19) Subjective 10/01 nonverbal, confused, to be npo, tube feeds on hold, no bleeding, meds reviewed 10/02 remains nonverbal, on gtube feeds, labs noted, no bleeding Objective Objective Current Medications Medications (Trade) Dose Ordered Sig/Nidhi Route PRN Reason Start Time Stop Time Status Last Admin Dose Admin Acetaminophen (Tylenol) 650 mg Q4H PRN GT Pain/Temp >100.5 10/01/19 03:30 10/30/19 23:29 Amlodipine Besylate (Norvasc) 10 mg DAILY GT 10/01/19 09:00 10/31/19 08:59 10/02/19 09:49 Ascorbic Acid (Vitamin C) 250 mg BID GT 10/01/19 09:00 10/31/19 08:59 10/02/19 17:19 Azithromycin 500 mg/Dextrose 275 ml @ 275 mls/hr Q24HRS IV 10/01/19 14:00 10/07/19 14:59 10/02/19 14:20 Cefepime HCl 1 gm/ Dextrose 55 ml @ 110 mls/hr Q24H IVPB 10/01/19 14:00 10/08/19 13:59 10/02/19 14:21 Clonidine HCl (Catapres Tab) 0.1 mg EVERY 6 HOURS GT 10/01/19 00:00 12/30/19 00:00 10/03/19 06:17 Dextrose (Dextrose 50%) 25 ml Q30M PRN IV Hypoglycemia 09/30/19 22:00 12/29/19 21:59 Dextrose (Dextrose 50%) 50 ml Q30M PRN IV Hypoglycemia 09/30/19 22:00 12/29/19 21:59 Dextrose/Sodium Chloride 1,000 ml @ 80 mls/hr [id number] IV 10/02/19 13:15 11/01/19 13:14 10/03/19 05:39 Docusate Sodium (Colace) 100 mg TWICE A DAY GT 10/01/19 09:00 10/31/19 08:59 10/02/19 17:19 Donepezil HCl (Aricept) 5 mg BEDTIME GT 10/01/19 21:00 10/31/19 20:59 10/02/19 21:10 Ferrous Sulfate (Feosol) 325 mg BID GT 10/01/19 09:00 12/30/19 08:59 10/02/19 17:19 Heparin Sodium (Porcine) (Heparin 5000 units/ml) 5,000 units EVERY 8 HOURS SUBQ 10/01/19 06:00 11/15/19 05:59 10/03/19 05:51 Insulin Aspart (NovoLOG) BEFORE MEALS AND HS SUBQ 09/30/19 21:51 12/29/19 21:50 10/02/19 21:24 Levetiracetam (Keppra) 500 mg Q12HR GT 10/01/19 09:00 11/15/19 08:59 10/02/19 21:10 Magnesium Hydroxide (Mom) 30 ml DAILY GT 10/01/19 09:00 10/31/19 08:59 10/02/19 09:49 Metoclopramide HCl (Reglan) 5 mg Q6H PRN IVP Nausea & Vomiting 10/02/19 09:45 11/01/19 09:44 Multivitamins (Multivitamins) 1 tab DAILY GT 10/01/19 09:00 10/31/19 08:59 10/02/19 09:49 Phenytoin (Dilantin) 300 mg DAILY GT 10/01/19 09:00 11/15/19 08:59 10/02/19 09:49 Sennosides (Senokot) 8.6 mg DAILY GT 10/01/19 09:00 10/31/19 08:59 10/02/19 09:49 Last 24 Hour Vital Signs Date Time Temp Pulse Resp B/P (MAP) Pulse Ox O2 Delivery O2 Flow Rate FiO2 10/03/19 06:17 129/85 10/03/19 04:00 97.9 77 18 129/85 (100) 92 10/03/19 04:00 72 10/03/19 01:14 135/92 10/03/19 00:00 97.6 32 19 135/82 (99) 95 10/03/19 00:00 67 10/02/19 21:00 Nasal Cannula 2.0 10/02/19 20:00 97.7 70 17 123/96 (105) 93 10/02/19 20:00 62 10/02/19 17:19 108/66 10/02/19 16:25 60 10/02/19 16:00 97.9 65 18 108/66 (80) 99 10/02/19 12:03 118/74 10/02/19 12:00 97.7 68 18 118/74 (89) 100 10/02/19 11:42 65 10/02/19 09:49 68 117/67 10/02/19 09:00 Nasal Cannula 2.0 10/02/19 08:00 97.9 68 18 117/67 (84) 96 10/02/19 07:38 64 10/02/19 06:00 132/67 10/02/19 04:00 97.4 74 18 132/67 (88) 96 10/02/19 04:00 69 10/02/19 01:16 126/66 10/02/19 00:00 97.8 72 18 126/60 (82) 95 10/02/19 00:00 67 10/01/19 21:00 Nasal Cannula 2.0 10/01/19 20:00 97.9 75 18 129/65 (86) 94 10/01/19 20:00 71 10/01/19 17:23 110/60 10/01/19 16:00 98.1 63 18 110/60 (77) 96 10/01/19 16:00 60 10/01/19 13:06 116/68 10/01/19 12:00 72 10/01/19 12:00 98.0 66 18 116/68 (84) 95 10/01/19 09:00 Nasal Cannula 2.0 10/01/19 08:59 62 110/70 10/01/19 08:00 75 10/01/19 08:00 97.8 62 18 110/70 (83) 93 Intake and Output 10/02/19 10/03/19 19:00 07:00 Intake Total 150 ml 835 ml Output Total 1100 ml Balance -950 ml 835 ml IV Total 560 ml Tube Feeding 150 ml 275 ml Output Urine Total 1100 ml Labs Test 09/30/19 13:00 10/01/19 07:55 10/02/19 03:30 White Blood Count 28.2 K/UL (4.8-10.8) 14.7 K/UL (4.8-10.8) 11.6 K/UL (4.8-10.8) Red Blood Count 3.57 M/UL (4.70-6.10) 2.75 M/UL (4.70-6.10) 3.03 M/UL (4.70-6.10) Hemoglobin 11.7 G/DL (14.2-18.0) 8.8 G/DL (14.2-18.0) 9.8 G/DL (14.2-18.0) Hematocrit 35.6 % (42.0-52.0) 27.7 % (42.0-52.0) 30.0 % (42.0-52.0) Mean Corpuscular Volume 100 FL (80-99) 101 FL (80-99) 99 FL (80-99) Mean Corpuscular Hemoglobin 32.7 PG (27.0-31.0) 32.1 PG (27.0-31.0) 32.4 PG (27.0-31.0) Mean Corpuscular Hemoglobin Concent 32.8 G/DL (32.0-36.0) 31.9 G/DL (32.0-36.0) 32.7 G/DL (32.0-36.0) Red Cell Distribution Width 14.6 % (11.6-14.8) 14.4 % (11.6-14.8) 14.4 % (11.6-14.8) Platelet Count 507 K/UL (150-450) 369 K/UL (150-450) 384 K/UL (150-450) Mean Platelet Volume 5.1 FL (6.5-10.1) 5.2 FL (6.5-10.1) 5.2 FL (6.5-10.1) Neutrophils (%) (Auto) % (45.0-75.0) 75.3 % (45.0-75.0) 59.8 % (45.0-75.0) Lymphocytes (%) (Auto) % (20.0-45.0) 17.3 % (20.0-45.0) 28.2 % (20.0-45.0) Monocytes (%) (Auto) % (1.0-10.0) 4.7 % (1.0-10.0) 7.7 % (1.0-10.0) Eosinophils (%) (Auto) % (0.0-3.0) 1.1 % (0.0-3.0) 2.3 % (0.0-3.0) Basophils (%) (Auto) % (0.0-2.0) 1.5 % (0.0-2.0) 2.0 % (0.0-2.0) Differential Total Cells Counted 100 Neutrophils % (Manual) 85 % (45-75) Lymphocytes % (Manual) 10 % (20-45) Monocytes % (Manual) 5 % (1-10) Eosinophils % (Manual) 0 % (0-3) Basophils % (Manual) 0 % (0-2) Band Neutrophils 0 % (0-8) Platelet Estimate Adequate Platelet Morphology Normal Red Blood Cell Morphology Normal Urine Color Yellow Urine Appearance Clear Urine pH 8 (4.5-8.0) Urine Specific [place] 1.015 (1.005-1.035) Urine Protein 2+ (NEGATIVE) Urine Glucose (UA) Negative (NEGATIVE) Urine Ketones Negative (NEGATIVE) Urine Blood Negative (NEGATIVE) Urine Nitrite Negative (NEGATIVE) Urine Bilirubin Negative (NEGATIVE) Urine Urobilinogen Normal MG/DL (0.0-1.0) Urine Leukocyte Esterase 1+ (NEGATIVE) Urine RBC 0-2 /HPF (0 - 0) Urine WBC 2-4 /HPF (0 - 0) Urine Squamous Epithelial Cells Occasional /LPF Urine Bacteria Occasional /HPF (NONE) Sodium Level 152 MMOL/L (136-145) 150 MMOL/L (136-145) 148 MMOL/L (136-145) Potassium Level 4.0 MMOL/L (3.5-5.1) 3.5 MMOL/L (3.5-5.1) 3.8 MMOL/L (3.5-5.1) Chloride Level 107 MMOL/L (98-107) 111 MMOL/L (98-107) 109 MMOL/L (98-107) Carbon Dioxide Level 37 MMOL/L (21-32) 32 MMOL/L (21-32) 32 MMOL/L (21-32) Anion Gap 9 mmol/L (5-15) 8 mmol/L (5-15) 7 mmol/L (5-15) Blood Urea Nitrogen 25 mg/dL (7-18) 16 mg/dL (7-18) 15 mg/dL (7-18) Creatinine 0.8 MG/DL (0.55-1.30) 0.7 MG/DL (0.55-1.30) 0.7 MG/DL (0.55-1.30) Estimat Glomerular Filtration Rate > 60 mL/min (>60) > 60 mL/min (>60) > 60 mL/min (>60) Glucose Level 149 MG/DL (74-106) 153 MG/DL (74-106) 77 MG/DL (74-106) Lactic Acid Level 1.10 mmol/L (0.4-2.0) Calcium Level 10.7 MG/DL (8.5-10.1) 9.7 MG/DL (8.5-10.1) 10.0 MG/DL (8.5-10.1) Total Bilirubin 0.3 MG/DL (0.2-1.0) Aspartate Amino Transf (AST/SGOT) 36 U/L (15-37) Alanine Aminotransferase (ALT/SGPT) 26 U/L (12-78) Alkaline Phosphatase 147 U/L (46-116) Troponin I 0.015 ng/mL (0.000-0.056) 0.001 ng/mL (0.000-0.056) Pro-B-Type Natriuretic Peptide 392 pg/mL (0-125) 252 pg/mL (0-125) Total Protein 9.0 G/DL (6.4-8.2) Albumin 2.8 G/DL (3.4-5.0) Globulin 6.2 g/dL Albumin/Globulin Ratio 0.5 (1.0-2.7) Height (Feet): 6 Height (Inches): 0.00 Weight (Pounds): 160 Objective vitals: noted gen: nonverbal pulm: ctab, some crackles left side heent; nc, at, eomi Cv: rrr, no mgr abd: soft, nt, nd +gtube ext: no cce Ignacio Ponce MD October 03, 2019 06:41
[2019-10-03 07:01] LABS: EOSINOPHILS % (AUTO) 2.1 % (0.0-3.0); HEMATOCRIT 28.5 % (42.0-52.0); HEMOGLOBIN 9.7 G/DL (14.2-18.0); LYMPHOCYTES % (AUTO) 33.1 % (20.0-45.0); MEAN CORPUSCULAR VOLUME 96 FL (80-99); MONOCYTES % (AUTO) 6.3 % (1.0-10.0); NEUTROPHILS % (AUTO) 56.5 % (45.0-75.0); PLATELET COUNT 345 K/UL (150-450); RED BLOOD COUNT 2.99 M/UL (4.70-6.10); RED CELL DISTRIBUTION WIDTH 13.7 % (11.6-14.8); WHITE BLOOD COUNT 10.5 K/UL (4.8-10.8)
[2019-10-03 07:42] LABS: ANION GAP 5 mmol/L (5-15); BLOOD UREA NITROGEN 10 mg/dL (7-18); CALCIUM 9.4 MG/DL (8.5-10.1); CARBON DIOXIDE 33 MMOL/L (21-32); CHLORIDE 106 MMOL/L (98-107); CREATININE 0.6 MG/DL (0.55-1.30); POTASSIUM 3.7 MMOL/L (3.5-5.1); SODIUM 144 MMOL/L (136-145)
[2019-10-03 08:00] VITALS: BP 125/66
--- NOTE | 2019-10-03 08:23 | General Progress Note ---
Assessment/Plan Assessment/Plan: 1. Hypertension. 2. Diabetes. 3. COPD. 4. History of pacemaker placement. 5. Dementia. 6. gastroparesis reglan GTF simba of IV if tolerated TF GT flushes will fu Subjective Allergies: Coded Allergies: PNEUMOCOCCAL VACCINE (Unverified Allergy, Unknown, 10/07/18) Uncoded Allergies: PNA VACCINE (Allergy, Unknown, 09/30/19) Objective Last 24 Hour Vital Signs Date Time Temp Pulse Resp B/P (MAP) Pulse Ox O2 Delivery O2 Flow Rate FiO2 10/03/19 06:17 129/85 10/03/19 04:00 97.9 77 18 129/85 (100) 92 10/03/19 04:00 72 10/03/19 01:14 135/92 10/03/19 00:00 97.6 32 19 135/82 (99) 95 10/03/19 00:00 67 10/02/19 21:00 Nasal Cannula 2.0 10/02/19 20:00 97.7 70 17 123/96 (105) 93 10/02/19 20:00 62 10/02/19 17:19 108/66 10/02/19 16:25 60 10/02/19 16:00 97.9 65 18 108/66 (80) 99 10/02/19 12:03 118/74 10/02/19 12:00 97.7 68 18 118/74 (89) 100 10/02/19 11:42 65 10/02/19 09:49 68 117/67 10/02/19 09:00 Nasal Cannula 2.0 Intake and Output 10/02/19 10/03/19 19:00 07:00 Intake Total 150 ml 835 ml Output Total 1100 ml 700 ml Balance -950 ml 135 ml IV Total 560 ml Tube Feeding 150 ml 275 ml Output Urine Total 1100 ml 700 ml # Voids 2 # Bowel Movements 1 Laboratory Tests 10/03/19 05:40: White Blood Count 10.5, Red Blood Count 2.99L, Hemoglobin 9.7L, Hematocrit 28.5L , Mean Corpuscular Volume 96, Mean Corpuscular Hemoglobin 32.5H, Mean Corpuscular Hemoglobin Concent 34.0, Red Cell Distribution Width 13.7, Platelet Count 345, Mean Platelet Volume 5.8L, Neutrophils (%) (Auto) 56.5, Lymphocytes ( %) (Auto) 33.1, Monocytes (%) (Auto) 6.3, Eosinophils (%) (Auto) 2.1, Basophils (%) (Auto) 2.0, Sodium Level 144, Potassium Level 3.7, Chloride Level 106, Carbon Dioxide Level 33H, Anion Gap 5, Blood Urea Nitrogen 10, Creatinine 0.6, Estimat Glomerular Filtration Rate > 60, Glucose Level 112H, Calcium Level 9.4, Iron Level [Pending], Unsaturated Iron Binding [Pending], Vitamin B12 Level [ Pending], Folate [Pending] 10/03/19 07:00: Stool Occult Blood [Pending] Height (Feet): 6 Height (Inches): 0.00 Weight (Pounds): 160 General Appearance: no apparent distress EENT: PERRL/EOMI Neck: supple Cardiovascular: normal rate Respiratory/Chest: decreased breath sounds Abdomen: normal bowel sounds, non tender, soft Extremities: non-tender Terence Anton MD October 03, 2019 08:23
[2019-10-03] MEDS: Sennosides 8.6mg tab GT SCH (09:05)
[2019-10-03] MEDS: Ascorbic Acid 500mg tab GT SCH ×2 (09:05→17:38)
[2019-10-03] MEDS: levETIRAcetam 500mg/5ml Liquid GT SCH ×2 (09:06→20:50)
[2019-10-03] MEDS: Phenytoin Susp 100mg/4ml GT SCH (09:06)
[2019-10-03] MEDS: Docusate 100mg/10ml Liq GT SCH ×2 (09:06→17:39)
[2019-10-03] MEDS: Ferrous Sulfate 300 MG/5 ML UDC GT SCH ×2 (09:06→17:39)
[2019-10-03] MEDS: Milk of Magnesia 30ml Ud GT SCH (09:06)
[2019-10-03 10:12] LABS: % IRON SATURATION 41 % (15-50); IRON 80 ug/dL (50-175); TOTAL IRON BINDING CAPACITY 195 ug/dL (250-450)
--- NOTE | 2019-10-03 11:03 | Infectious Diseases Prog Note ---
Assessment/Plan Assessment/Plan IMPRESSION: 1. MDR Acinetobacter sepsis 2. Pneumonia. Negative COVID19 X 1 3. Unstageable pressure ulcer that doesn't seem to be infected . 4. Hypernatremia. 5. Anemia. 6. Advanced dementia. 7. History of diverticulosis. 8. Gastrostomy status. RECOMMENDATION: Discontinue cefepime and Zithromax. Start on Polymyxin B We will follow up cultures will f/u COVID-19 test Subjective ROS Limited/Unobtainable: Yes Constitutional: Denies: fever Allergies: Coded Allergies: PNEUMOCOCCAL VACCINE (Unverified Allergy, Unknown, 10/07/18) Uncoded Allergies: PNA VACCINE (Allergy, Unknown, 09/30/19) Objective Vital Signs Last 24 Hour Vital Signs Date Time Temp Pulse Resp B/P (MAP) Pulse Ox O2 Delivery O2 Flow Rate FiO2 10/03/19 09:05 80 125/66 10/03/19 08:00 97.7 80 20 125/66 (85) 98 10/03/19 07:56 93 10/03/19 06:17 129/85 10/03/19 04:00 97.9 77 18 129/85 (100) 92 10/03/19 04:00 72 10/03/19 01:14 135/92 10/03/19 00:00 97.6 32 19 135/82 (99) 95 10/03/19 00:00 67 10/02/19 21:00 Nasal Cannula 2.0 10/02/19 20:00 97.7 70 17 123/96 (105) 93 10/02/19 20:00 62 10/02/19 17:19 108/66 10/02/19 16:25 60 10/02/19 16:00 97.9 65 18 108/66 (80) 99 10/02/19 12:03 118/74 10/02/19 12:00 97.7 68 18 118/74 (89) 100 10/02/19 11:42 65 Height (Feet): 6 Height (Inches): 0.00 Weight (Pounds): 160 General Appearance: no acute distress HEENT: mucous membranes moist Respiratory/Chest: other - oxygen by nasal cannula Cardiovascular: normal rate Abdomen: soft, non tender, other - feeding Extremities: no edema Neurologic/Psychiatric: aphasia Microbiology Date/Time Source Procedure Growth Status 09/30/19 13:15 Blood Blood Culture - Preliminary NO GROWTH AFTER 48 HOURS Resulted 09/30/19 13:00 Blood Blood Culture - Preliminary Acinetobacter Baumannii Complx Resulted 09/30/19 13:30 Nasal Nares MRSA Culture - Final NO METHICILLIN RESISTANT STAPH AUREUS... Complete 09/30/19 13:30 Nasopharynx Coronavirus COVID-19 PCR (BRENDA) - Final Complete 09/30/19 13:20 Nasal Nares - Final Complete 09/30/19 13:20 Nasal Nares - Final Complete 09/30/19 13:30 Rectum VRE Culture - Final Enterococcus Faecium - Vre Complete 09/30/19 13:30 Rectum - Final NO CARBAPENEM-RESISTANT ENTEROBACTERI... Complete Laboratory Tests Test 10/03/19 05:40 10/03/19 07:00 White Blood Count 10.5 K/UL (4.8-10.8) Red Blood Count 2.99 M/UL (4.70-6.10) L Hemoglobin 9.7 G/DL (14.2-18.0) L Hematocrit 28.5 % (42.0-52.0) L Mean Corpuscular Volume 96 FL (80-99) Mean Corpuscular Hemoglobin 32.5 PG (27.0-31.0) H Mean Corpuscular Hemoglobin Concent 34.0 G/DL (32.0-36.0) Red Cell Distribution Width 13.7 % (11.6-14.8) Platelet Count 345 K/UL (150-450) Mean Platelet Volume 5.8 FL (6.5-10.1) L Neutrophils (%) (Auto) 56.5 % (45.0-75.0) Lymphocytes (%) (Auto) 33.1 % (20.0-45.0) Monocytes (%) (Auto) 6.3 % (1.0-10.0) Eosinophils (%) (Auto) 2.1 % (0.0-3.0) Basophils (%) (Auto) 2.0 % (0.0-2.0) Sodium Level 144 MMOL/L (136-145) Potassium Level 3.7 MMOL/L (3.5-5.1) Chloride Level 106 MMOL/L (98-107) Carbon Dioxide Level 33 MMOL/L (21-32) H Anion Gap 5 mmol/L (5-15) Blood Urea Nitrogen 10 mg/dL (7-18) Creatinine 0.6 MG/DL (0.55-1.30) Estimat Glomerular Filtration Rate > 60 mL/min (>60) Glucose Level 112 MG/DL (74-106) H Calcium Level 9.4 MG/DL (8.5-10.1) Iron Level 80 ug/dL (50-175) Total Iron Binding Capacity 195 ug/dL (250-450) L Percent Iron Saturation 41 % (15-50) Unsaturated Iron Binding 115 ug/dL (112-346) Vitamin B12 Level 945 PG/ML (193-986) Folate 14.4 NG/ML (8.6-58.9) Stool Occult Blood Pending Current Medications Medications (Trade) Dose Ordered Sig/Nidhi Route PRN Reason Start Time Stop Time Status Last Admin Dose Admin Acetaminophen (Tylenol) 650 mg Q4H PRN GT Pain/Temp >100.5 10/01/19 03:30 10/30/19 23:29 Amlodipine Besylate (Norvasc) 10 mg DAILY GT 10/01/19 09:00 10/31/19 08:59 10/03/19 09:05 Ascorbic Acid (Vitamin C) 250 mg BID GT 10/01/19 09:00 10/31/19 08:59 10/03/19 09:05 Azithromycin 500 mg/Dextrose 275 ml @ 275 mls/hr Q24HRS IV 10/01/19 14:00 10/07/19 14:59 10/02/19 14:20 Cefepime HCl 1 gm/ Dextrose 55 ml @ 110 mls/hr Q24H IVPB 10/01/19 14:00 10/08/19 13:59 10/02/19 14:21 Clonidine HCl (Catapres Tab) 0.1 mg EVERY 6 HOURS GT 10/01/19 00:00 12/30/19 00:00 10/03/19 06:17 Dextrose (Dextrose 50%) 25 ml Q30M PRN IV Hypoglycemia 09/30/19 22:00 12/29/19 21:59 Dextrose (Dextrose 50%) 50 ml Q30M PRN IV Hypoglycemia 09/30/19 22:00 12/29/19 21:59 Dextrose/Sodium Chloride 1,000 ml @ 80 mls/hr [id number] IV 10/02/19 13:15 11/01/19 13:14 10/03/19 05:39 Docusate Sodium (Colace) 100 mg TWICE A DAY GT 10/01/19 09:00 10/31/19 08:59 10/03/19 09:06 Donepezil HCl (Aricept) 5 mg BEDTIME GT 10/01/19 21:00 10/31/19 20:59 10/02/19 21:10 Ferrous Sulfate (Feosol) 325 mg BID GT 10/01/19 09:00 12/30/19 08:59 10/03/19 09:06 Heparin Sodium (Porcine) (Heparin 5000 units/ml) 5,000 units EVERY 8 HOURS SUBQ 10/01/19 06:00 11/15/19 05:59 10/03/19 05:51 Insulin Aspart (NovoLOG) BEFORE MEALS AND HS SUBQ 09/30/19 21:51 12/29/19 21:50 10/02/19 21:24 Levetiracetam (Keppra) 500 mg Q12HR GT 10/01/19 09:00 11/15/19 08:59 10/03/19 09:06 Magnesium Hydroxide (Mom) 30 ml DAILY GT 10/01/19 09:00 10/31/19 08:59 10/03/19 09:06 Metoclopramide HCl (Reglan) 5 mg Q6H PRN IVP Nausea & Vomiting 10/02/19 09:45 11/01/19 09:44 Multivitamins (Multivitamins) 1 tab DAILY GT 10/01/19 09:00 10/31/19 08:59 10/03/19 09:06 Phenytoin (Dilantin) 300 mg DAILY GT 10/01/19 09:00 11/15/19 08:59 10/03/19 09:06 Sennosides (Senokot) 8.6 mg DAILY GT 10/01/19 09:00 10/31/19 08:59 10/03/19 09:05 Curtis Farah MD October 03, 2019 11:03
--- NOTE | 2019-10-03 11:18 | Surgery Progress Note ---
Surgery Progress Note Subjective Additional Comments leukocytosis resolved labs improved comfortable dressings changed Objective Last 24 Hour Vital Signs Date Time Temp Pulse Resp B/P (MAP) Pulse Ox O2 Delivery O2 Flow Rate FiO2 10/03/19 09:05 80 125/66 10/03/19 09:00 Nasal Cannula 2.0 10/03/19 08:00 97.7 80 20 125/66 (85) 98 10/03/19 07:56 93 10/03/19 06:17 129/85 10/03/19 04:00 97.9 77 18 129/85 (100) 92 10/03/19 04:00 72 10/03/19 01:14 135/92 10/03/19 00:00 97.6 32 19 135/82 (99) 95 10/03/19 00:00 67 10/02/19 21:00 Nasal Cannula 2.0 10/02/19 20:00 97.7 70 17 123/96 (105) 93 10/02/19 20:00 62 10/02/19 17:19 108/66 10/02/19 16:25 60 10/02/19 16:00 97.9 65 18 108/66 (80) 99 10/02/19 12:03 118/74 10/02/19 12:00 97.7 68 18 118/74 (89) 100 10/02/19 11:42 65 I&O Intake and Output 10/02/19 10/03/19 19:00 07:00 Intake Total 150 ml 835 ml Output Total 1100 ml 700 ml Balance -950 ml 135 ml IV Total 560 ml Tube Feeding 150 ml 275 ml Output Urine Total 1100 ml 700 ml # Voids 2 # Bowel Movements 1 Dressing: other Wound: other Drains: other Cardiovascular: RSR Respiratory: decreased breath sounds Abdomen: soft, non-tender, present bowel sounds Extremities: no tenderness, no cyanosis, other Laboratory Tests Test 10/03/19 05:40 10/03/19 07:00 White Blood Count 10.5 K/UL (4.8-10.8) Red Blood Count 2.99 M/UL (4.70-6.10) L Hemoglobin 9.7 G/DL (14.2-18.0) L Hematocrit 28.5 % (42.0-52.0) L Mean Corpuscular Volume 96 FL (80-99) Mean Corpuscular Hemoglobin 32.5 PG (27.0-31.0) H Mean Corpuscular Hemoglobin Concent 34.0 G/DL (32.0-36.0) Red Cell Distribution Width 13.7 % (11.6-14.8) Platelet Count 345 K/UL (150-450) Mean Platelet Volume 5.8 FL (6.5-10.1) L Neutrophils (%) (Auto) 56.5 % (45.0-75.0) Lymphocytes (%) (Auto) 33.1 % (20.0-45.0) Monocytes (%) (Auto) 6.3 % (1.0-10.0) Eosinophils (%) (Auto) 2.1 % (0.0-3.0) Basophils (%) (Auto) 2.0 % (0.0-2.0) Sodium Level 144 MMOL/L (136-145) Potassium Level 3.7 MMOL/L (3.5-5.1) Chloride Level 106 MMOL/L (98-107) Carbon Dioxide Level 33 MMOL/L (21-32) H Anion Gap 5 mmol/L (5-15) Blood Urea Nitrogen 10 mg/dL (7-18) Creatinine 0.6 MG/DL (0.55-1.30) Estimat Glomerular Filtration Rate > 60 mL/min (>60) Glucose Level 112 MG/DL (74-106) H Calcium Level 9.4 MG/DL (8.5-10.1) Iron Level 80 ug/dL (50-175) Total Iron Binding Capacity 195 ug/dL (250-450) L Percent Iron Saturation 41 % (15-50) Unsaturated Iron Binding 115 ug/dL (112-346) Vitamin B12 Level 945 PG/ML (193-986) Folate 10.6 NG/ML (8.6-58.9) Stool Occult Blood Pending Plan Problems: (1) Decubitus skin ulcer Assessment & Plan: Pt presented on admission with multiple pressure injuries. Resolving pressure injury cleft of R ear. [place] epithelial at base of wound with marginal erythema. Non-blanching erythema cleft of L ear. Pt is receiving o2 via nasal cannula, and oxygen tubing padded with gauze to minimize pressure and friction to both ears. Unstageable Sacral Pressure Injury(L)9.4cm x (W)7.8cm. Base of wound is 75% necrotic and and soft, 20% surrounding slough,Marginal erythema and macerated borders. Mild odor noted. Small amt seropurulent exudate.Periwound,skin tone is darker without elevation in skin temp, fluctuance or induration.small area of hyperpigmentation noted to L gluteal cheek. L Heel extending into plantar aspect is boggy with non-blanching erythema. Non-blanching erythema R heel without induration or fluctuance. Xerosis skin both feet. Tx.Plan: Cleanse Sacral wound with Saline. Apply Therahoney. Apply Moisture Barrier Paste periwound. Cover with Optifoam Drsg. Change every 3 days and prn. Apply Moisture Barrier paste to Perineum, R and L buttocks with each incontinence care. Apply Cavilon Skin Barrier to both heels. Cover each heel with Optifoam drsg. Change every 7 days and prn. Apply Cavilon Skin Barrier to clefts of both R and L ears Daily. Pad Oxygen tubing with gauze around Ears. Keep Oxygen tubing loose around Ears. Reposition at least every 2hours or as tolerated. Off-load heels with pillow. APM/CHRISTOPHER Mattress overlay. (2) Leukocytosis Assessment & Plan: leukocytosis 28k on admission trending down on abx wounds unlikely etiology pna ua noted cont abx as per id will follow with recs thank you (3) Lung mass (4) Protein-calorie malnutrition, severe Assessment & Plan: There is a gastrostomy tube in place. Previously demonstrated nasogastric tube is no longer evident. Bowel gas pattern is unremarkable. No masses or unusual calcifications. There is evidence of a Macedo catheter. There is a right hip prosthesis. There are degenerative changes of the lumbar spine nutritional optimization tube feeds bmi noted alb low DAILY ESTIMATED NEEDS: Needs based on Pulmonary, wounds; 72.5kg 25-30 kcals/kg 2310-9887 total kcals 1.25-1.5 g protein/kg 90-108 g total protein 25-30 mL/kg 6602-0851 total fluid mLs NUTRITION DIAGNOSIS: 1. Increased pro needs r/t wound healing as evidenced by pt adm w/ multiple wounds including unstageable sacral wound, refer to WC eval. 2. Swallowing difficulty r/t dysphagia as evidenced by GT dependent. CURRENT TF:Glucerna 1.5 @ 50ml/hr x 22 hrs (on Dilantin QD) ENTERAL NUTRITION RECOMMENDATIONS: Glucerna 1.5 @55ml/hr x22 hrs (1 hr held before and after Dilantin med) to provide 1210ml, 1815kcal, 100g prot, 918ml free water - Increase goal rate to 55ml/hr to meet 100% est kcal/prot needs - Hold 1 hr before and after Dilantin med - HOB over 30 degrees ADDITIONAL RECOMMENDATIONS: * Wound healing: continue Vit C add KESHIA in 4oz H2O BID via GT * Calibrated bedscale wt for accurate CBW * Check lytes daily w/ TF, replete as needed * Monitor TF tolerance/residuals * DC D5 once TF @ goal (5) Suspected COVID-19 virus infection Assessment & Plan: covid negative Right basilar consolidation and atelectasis, could indicate pneumonia. Minimal left basilar atelectasis Gabino Little October 03, 2019 11:18
--- NOTE | 2019-10-03 11:20 | Pulmonology Progress Note ---
Assessment/Plan Assessment/Plan IMPRESSION: 1. Right lung pneumonia. 2. senior living resident. 3. Recent hospitalization at acute hospital. 4. Diabetes mellitus. 5. Hypertension. 6. COPD. 7. Pacemaker. DISCUSSION: Continue broad-spectrum antibiotics. Continue oxygen, pulmonary hygiene. I will follow carefully. COVID 19 pcr x 1 negative Truman Bradford M.D. Subjective ROS Limited/Unobtainable: Yes Interval Events: None new Constitutional: Denies: fever HEENT: Repors: no symptoms Respiratory: Reports: dry cough, shortness of breath Cardiovascular: Reports: no symptoms Gastrointestinal/Abdominal: Reports: no symptoms Allergies: Coded Allergies: PNEUMOCOCCAL VACCINE (Unverified Allergy, Unknown, 10/07/18) Uncoded Allergies: PNA VACCINE (Allergy, Unknown, 09/30/19) All Systems: reviewed and negative except above Objective Last 24 Hour Vital Signs Date Time Temp Pulse Resp B/P (MAP) Pulse Ox O2 Delivery O2 Flow Rate FiO2 10/03/19 09:05 80 125/66 10/03/19 09:00 Nasal Cannula 2.0 10/03/19 08:00 97.7 80 20 125/66 (85) 98 10/03/19 07:56 93 10/03/19 06:17 129/85 10/03/19 04:00 97.9 77 18 129/85 (100) 92 10/03/19 04:00 72 10/03/19 01:14 135/92 10/03/19 00:00 97.6 32 19 135/82 (99) 95 10/03/19 00:00 67 10/02/19 21:00 Nasal Cannula 2.0 10/02/19 20:00 97.7 70 17 123/96 (105) 93 10/02/19 20:00 62 10/02/19 17:19 108/66 10/02/19 16:25 60 10/02/19 16:00 97.9 65 18 108/66 (80) 99 10/02/19 12:03 118/74 10/02/19 12:00 97.7 68 18 118/74 (89) 100 10/02/19 11:42 65 Intake and Output 10/02/19 10/03/19 19:00 07:00 Intake Total 150 ml 835 ml Output Total 1100 ml 700 ml Balance -950 ml 135 ml IV Total 560 ml Tube Feeding 150 ml 275 ml Output Urine Total 1100 ml 700 ml # Voids 2 # Bowel Movements 1 General Appearance: no acute distress HEENT: mucous membranes moist Respiratory/Chest: chest wall non-tender, decreased breath sounds Cardiovascular: normal peripheral pulses, normal rate Abdomen: soft, non tender, other - feeding Extremities: no edema Neurologic/Psychiatric: aphasia Microbiology Date/Time Source Procedure Growth Status 09/30/19 13:15 Blood Blood Culture - Preliminary NO GROWTH AFTER 48 HOURS Resulted 09/30/19 13:00 Blood Blood Culture - Preliminary Acinetobacter Baumannii Complx Resulted 09/30/19 13:30 Nasal Nares MRSA Culture - Final NO METHICILLIN RESISTANT STAPH AUREUS... Complete 09/30/19 13:30 Nasopharynx Coronavirus COVID-19 PCR (BRENDA) - Final Complete 09/30/19 13:20 Nasal Nares - Final Complete 09/30/19 13:20 Nasal Nares - Final Complete 09/30/19 13:30 Rectum VRE Culture - Final Enterococcus Faecium - Vre Complete 09/30/19 13:30 Rectum - Final NO CARBAPENEM-RESISTANT ENTEROBACTERI... Complete Laboratory Tests 10/03/19 05:40: White Blood Count 10.5, Red Blood Count 2.99L, Hemoglobin 9.7L, Hematocrit 28.5L , Mean Corpuscular Volume 96, Mean Corpuscular Hemoglobin 32.5H, Mean Corpuscular Hemoglobin Concent 34.0, Red Cell Distribution Width 13.7, Platelet Count 345, Mean Platelet Volume 5.8L, Neutrophils (%) (Auto) 56.5, Lymphocytes ( %) (Auto) 33.1, Monocytes (%) (Auto) 6.3, Eosinophils (%) (Auto) 2.1, Basophils (%) (Auto) 2.0, Sodium Level 144, Potassium Level 3.7, Chloride Level 106, Carbon Dioxide Level 33H, Anion Gap 5, Blood Urea Nitrogen 10, Creatinine 0.6, Estimat Glomerular Filtration Rate > 60, Glucose Level 112H, Calcium Level 9.4, Iron Level 80, Total Iron Binding Capacity 195L, Percent Iron Saturation 41, Unsaturated Iron Binding 115, Vitamin B12 Level 945, Folate 10.6 10/03/19 07:00: Stool Occult Blood [Pending] Current Medications Medications (Trade) Dose Ordered Sig/Nidhi Route PRN Reason Start Time Stop Time Status Last Admin Dose Admin Acetaminophen (Tylenol) 650 mg Q4H PRN GT Pain/Temp >100.5 10/01/19 03:30 10/30/19 23:29 Amlodipine Besylate (Norvasc) 10 mg DAILY GT 10/01/19 09:00 10/31/19 08:59 10/03/19 09:05 Ascorbic Acid (Vitamin C) 250 mg BID GT 10/01/19 09:00 10/31/19 08:59 10/03/19 09:05 Clonidine HCl (Catapres Tab) 0.1 mg EVERY 6 HOURS GT 10/01/19 00:00 12/30/19 00:00 10/03/19 06:17 Dextrose (Dextrose 50%) 25 ml Q30M PRN IV Hypoglycemia 09/30/19 22:00 12/29/19 21:59 Dextrose (Dextrose 50%) 50 ml Q30M PRN IV Hypoglycemia 09/30/19 22:00 12/29/19 21:59 Dextrose/Sodium Chloride 1,000 ml @ 80 mls/hr [id number] IV 10/02/19 13:15 11/01/19 13:14 10/03/19 05:39 Docusate Sodium (Colace) 100 mg TWICE A DAY GT 10/01/19 09:00 10/31/19 08:59 10/03/19 09:06 Donepezil HCl (Aricept) 5 mg BEDTIME GT 10/01/19 21:00 10/31/19 20:59 10/02/19 21:10 Ferrous Sulfate (Feosol) 325 mg BID GT 10/01/19 09:00 12/30/19 08:59 10/03/19 09:06 Heparin Sodium (Porcine) (Heparin 5000 units/ml) 5,000 units EVERY 8 HOURS SUBQ 10/01/19 06:00 11/15/19 05:59 10/03/19 05:51 Insulin Aspart (NovoLOG) BEFORE MEALS AND HS SUBQ 09/30/19 21:51 12/29/19 21:50 10/02/19 21:24 Levetiracetam (Keppra) 500 mg Q12HR GT 10/01/19 09:00 11/15/19 08:59 10/03/19 09:06 Magnesium Hydroxide (Mom) 30 ml DAILY GT 10/01/19 09:00 10/31/19 08:59 10/03/19 09:06 Metoclopramide HCl (Reglan) 5 mg Q6H PRN IVP Nausea & Vomiting 10/02/19 09:45 11/01/19 09:44 Multivitamins (Multivitamins) 1 tab DAILY GT 10/01/19 09:00 10/31/19 08:59 10/03/19 09:06 Phenytoin (Dilantin) 300 mg DAILY GT 10/01/19 09:00 11/15/19 08:59 10/03/19 09:06 Polymyxin B Sulfate 179449 units/Dextrose 550 ml @ 550 mls/hr Q12H IV 10/03/19 13:00 10/10/19 12:59 Sennosides (Senokot) 8.6 mg DAILY GT 10/01/19 09:00 10/31/19 08:59 10/03/19 09:05 Truman Bradford MD October 03, 2019 11:20
--- NOTE | 2019-10-03 11:36 | Cardiac Electrophysiology PN ---
Assessment/Plan Assessment/Plan 1. Tachycardia due to pneumonia and dehydration. Sodium was 150 [place] [address]. Improved on Abx and D5w 1/2 NS at 80 cc/hr iv 2. Hypertension on amlodipine 10 mg daily. 3. Shortness of breath, fever, and high white count. On IV antibiotic and being ruled out for COVID and isolation( first Covid is negative. Second is pending). 4. History of seizures, on Keppra. 5. Dysphagia, s/P PEG placement. 6. Hypernatremia and dehydration. Improved D5W 1/2 NS at 80 cc/hr DW RN Subjective Subjective In isolation for Covid (negative x1. Swabbed again yesterday). In SR Objective Last 24 Hour Vital Signs Date Time Temp Pulse Resp B/P (MAP) Pulse Ox O2 Delivery O2 Flow Rate FiO2 10/03/19 09:05 80 125/66 10/03/19 09:00 Nasal Cannula 2.0 10/03/19 08:00 97.7 80 20 125/66 (85) 98 10/03/19 07:56 93 10/03/19 06:17 129/85 10/03/19 04:00 97.9 77 18 129/85 (100) 92 10/03/19 04:00 72 10/03/19 01:14 135/92 10/03/19 00:00 97.6 32 19 135/82 (99) 95 10/03/19 00:00 67 10/02/19 21:00 Nasal Cannula 2.0 10/02/19 20:00 97.7 70 17 123/96 (105) 93 10/02/19 20:00 62 10/02/19 17:19 108/66 10/02/19 16:25 60 10/02/19 16:00 97.9 65 18 108/66 (80) 99 10/02/19 12:03 118/74 10/02/19 12:00 97.7 68 18 118/74 (89) 100 10/02/19 11:42 65 Intake and Output 10/02/19 10/03/19 19:00 07:00 Intake Total 150 ml 835 ml Output Total 1100 ml 700 ml Balance -950 ml 135 ml IV Total 560 ml Tube Feeding 150 ml 275 ml Output Urine Total 1100 ml 700 ml # Voids 2 # Bowel Movements 1 Laboratory Tests Test 10/03/19 05:40 10/03/19 07:00 White Blood Count 10.5 K/UL (4.8-10.8) Red Blood Count 2.99 M/UL (4.70-6.10) L Hemoglobin 9.7 G/DL (14.2-18.0) L Hematocrit 28.5 % (42.0-52.0) L Mean Corpuscular Volume 96 FL (80-99) Mean Corpuscular Hemoglobin 32.5 PG (27.0-31.0) H Mean Corpuscular Hemoglobin Concent 34.0 G/DL (32.0-36.0) Red Cell Distribution Width 13.7 % (11.6-14.8) Platelet Count 345 K/UL (150-450) Mean Platelet Volume 5.8 FL (6.5-10.1) L Neutrophils (%) (Auto) 56.5 % (45.0-75.0) Lymphocytes (%) (Auto) 33.1 % (20.0-45.0) Monocytes (%) (Auto) 6.3 % (1.0-10.0) Eosinophils (%) (Auto) 2.1 % (0.0-3.0) Basophils (%) (Auto) 2.0 % (0.0-2.0) Sodium Level 144 MMOL/L (136-145) Potassium Level 3.7 MMOL/L (3.5-5.1) Chloride Level 106 MMOL/L (98-107) Carbon Dioxide Level 33 MMOL/L (21-32) H Anion Gap 5 mmol/L (5-15) Blood Urea Nitrogen 10 mg/dL (7-18) Creatinine 0.6 MG/DL (0.55-1.30) Estimat Glomerular Filtration Rate > 60 mL/min (>60) Glucose Level 112 MG/DL (74-106) H Calcium Level 9.4 MG/DL (8.5-10.1) Iron Level 80 ug/dL (50-175) Total Iron Binding Capacity 195 ug/dL (250-450) L Percent Iron Saturation 41 % (15-50) Unsaturated Iron Binding 115 ug/dL (112-346) Vitamin B12 Level 945 PG/ML (193-986) Folate 10.6 NG/ML (8.6-58.9) Stool Occult Blood Pending Microbiology Date/Time Source Procedure Growth Status 09/30/19 13:15 Blood Blood Culture - Preliminary NO GROWTH AFTER 48 HOURS Resulted 09/30/19 13:00 Blood Blood Culture - Preliminary Acinetobacter Baumannii Complx Resulted 09/30/19 13:30 Nasal Nares MRSA Culture - Final NO METHICILLIN RESISTANT STAPH AUREUS... Complete 09/30/19 13:30 Nasopharynx Coronavirus COVID-19 PCR (BRENDA) - Final Complete 09/30/19 13:20 Nasal Nares - Final Complete 09/30/19 13:20 Nasal Nares - Final Complete 09/30/19 13:30 Rectum VRE Culture - Final Enterococcus Faecium - Vre Complete 09/30/19 13:30 Rectum - Final NO CARBAPENEM-RESISTANT ENTEROBACTERI... Complete Objective HEAD AND NECK: No JVD. LUNGS: Coarse rhonchi. CARDIOVASCULAR: Regular S1 and S2 with no gallop. ABDOMEN: Status post G-tube. EXTREMITIES: No pitting edema. Sajan Campbell MD October 03, 2019 11:36
[2019-10-03 12:00] VITALS: BP 121/68
[2019-10-03] MEDS: Polymyxin B Sulfate 500,000 UNITS in D5W 500ml 550 ML IV SCH (12:52)
[2019-10-03 16:00] VITALS: BP 127/73
--- NOTE | 2019-10-03 16:34 | General Progress Note ---
Assessment/Plan Problem List: (1) Fever ICD Codes: R50.9 - Fever, unspecified SNOMED: 318953466 (2) COPD (chronic obstructive pulmonary disease) ICD Codes: J44.9 - Chronic obstructive pulmonary disease, unspecified SNOMED: 81019995 (3) Severe sepsis ICD Codes: A41.9 - Sepsis, unspecified organism; R65.20 - Severe sepsis without septic shock SNOMED: 60606570 (4) PEG (percutaneous endoscopic gastrostomy) adjustment/replacement/removal ICD Codes: Z43.1 - Encounter for attention to gastrostomy SNOMED: 930006580, 408688823 (5) Protein-calorie malnutrition, severe ICD Codes: E43 - Unspecified severe protein-calorie malnutrition SNOMED: 713112123 (6) Acute febrile illness ICD Codes: R50.9 - Fever, unspecified SNOMED: 165762851 (7) PNA (pneumonia) ICD Codes: J18.9 - Pneumonia, unspecified organism SNOMED: 675707862 (8) Suspected COVID-19 virus infection ICD Codes: Z20.828 - Contact with and (suspected) exposure to other viral communicable diseases SNOMED: 097953379 (9) Congestion secondary to upper respiratory illness Status: progressing Assessment/Plan: labs essential normal leukocytosis resolved covid is negative vitals stable pna sepsis resp insuff supportive therapy afebrile nonverbal reviewed chart and labs Subjective ROS Limited/Unobtainable: Yes Allergies: Coded Allergies: PNEUMOCOCCAL VACCINE (Unverified Allergy, Unknown, 10/07/18) Uncoded Allergies: PNA VACCINE (Allergy, Unknown, 09/30/19) Objective Last 24 Hour Vital Signs Date Time Temp Pulse Resp B/P (MAP) Pulse Ox O2 Delivery O2 Flow Rate FiO2 10/03/19 16:00 98.9 81 21 127/73 (91) 99 10/03/19 12:52 121/68 10/03/19 12:00 99.3 83 22 121/68 (85) 100 10/03/19 11:46 82 10/03/19 09:05 80 125/66 10/03/19 09:00 Nasal Cannula 2.0 10/03/19 08:00 97.7 80 20 125/66 (85) 98 10/03/19 07:56 93 10/03/19 06:17 129/85 10/03/19 04:00 97.9 77 18 129/85 (100) 92 10/03/19 04:00 72 10/03/19 01:14 135/92 10/03/19 00:00 97.6 32 19 135/82 (99) 95 10/03/19 00:00 67 10/02/19 21:00 Nasal Cannula 2.0 10/02/19 20:00 97.7 70 17 123/96 (105) 93 10/02/19 20:00 62 10/02/19 17:19 108/66 Intake and Output 10/02/19 10/03/19 19:00 07:00 Intake Total 150 ml 835 ml Output Total 1100 ml 700 ml Balance -950 ml 135 ml IV Total 560 ml Tube Feeding 150 ml 275 ml Output Urine Total 1100 ml 700 ml # Voids 2 # Bowel Movements 1 Laboratory Tests 10/03/19 05:40: White Blood Count 10.5, Red Blood Count 2.99L, Hemoglobin 9.7L, Hematocrit 28.5L , Mean Corpuscular Volume 96, Mean Corpuscular Hemoglobin 32.5H, Mean Corpuscular Hemoglobin Concent 34.0, Red Cell Distribution Width 13.7, Platelet Count 345, Mean Platelet Volume 5.8L, Neutrophils (%) (Auto) 56.5, Lymphocytes ( %) (Auto) 33.1, Monocytes (%) (Auto) 6.3, Eosinophils (%) (Auto) 2.1, Basophils (%) (Auto) 2.0, Sodium Level 144, Potassium Level 3.7, Chloride Level 106, Carbon Dioxide Level 33H, Anion Gap 5, Blood Urea Nitrogen 10, Creatinine 0.6, Estimat Glomerular Filtration Rate > 60, Glucose Level 112H, Calcium Level 9.4, Iron Level 80, Total Iron Binding Capacity 195L, Percent Iron Saturation 41, Unsaturated Iron Binding 115, Vitamin B12 Level 945, Folate 10.6 10/03/19 07:00: Stool Occult Blood Negative Height (Feet): 6 Height (Inches): 0.00 Weight (Pounds): 160 Konrad Soares MD October 03, 2019 16:34
[2019-10-03 20:00] VITALS: BP 117/67
[2019-10-03] MEDS: Donepezil 5mg Tab GT SCH (20:50)
[2019-10-04] VITALS: BP 122/81
[2019-10-04] MEDS: Polymyxin B Sulfate 500,000 UNITS in D5W 500ml 550 ML IV SCH ×2 (01:13→13:18)
[2019-10-04] MEDS: D5 1/2NS 1,000 ML IV SCH (01:14)
[2019-10-04 04:00] VITALS: BP 119/77
[2019-10-04] MEDS: NovoLOG Insulin Flexpen SUBQ SCH ×4 (05:46→21:00)
[2019-10-04] MEDS: Heparin 5000 units/ml inj SUBQ SCH ×3 (05:47→21:31)
--- NOTE | 2019-10-04 06:41 | General Progress Note ---
Assessment/Plan Status: progressing Assessment/Plan: 1. Hypertension. 2. Diabetes. 3. COPD. 4. History of pacemaker placement. 5. Dementia. 6. gastroparesis reglan GTF dc IVF GT flushes repeat labs pending dc will fu Subjective ROS Limited/Unobtainable: No Allergies: Coded Allergies: PNEUMOCOCCAL VACCINE (Unverified Allergy, Unknown, 10/07/18) Uncoded Allergies: PNA VACCINE (Allergy, Unknown, 09/30/19) Objective Last 24 Hour Vital Signs Date Time Temp Pulse Resp B/P (MAP) Pulse Ox O2 Delivery O2 Flow Rate FiO2 10/04/19 04:00 94 10/04/19 04:00 98.0 72 18 119/77 (91) 98 10/04/19 00:00 96.9 68 18 122/81 (95) 96 10/04/19 00:00 66 10/03/19 21:00 Nasal Cannula 2.0 10/03/19 20:00 97.3 74 18 117/67 (84) 97 10/03/19 20:00 75 10/03/19 17:39 127/73 10/03/19 16:04 80 10/03/19 16:00 98.9 81 21 127/73 (91) 99 10/03/19 12:52 121/68 10/03/19 12:00 99.3 83 22 121/68 (85) 100 10/03/19 11:46 82 10/03/19 09:05 80 125/66 10/03/19 09:00 Nasal Cannula 2.0 10/03/19 08:00 97.7 80 20 125/66 (85) 98 10/03/19 07:56 93 Intake and Output 10/03/19 10/04/19 19:00 07:00 Intake Total 550 ml Output Total 900 ml 1400 ml Balance -350 ml -1400 ml Tube Feeding 550 ml Output Urine Total 900 ml 1400 ml Laboratory Tests 10/03/19 07:00: Stool Occult Blood Negative Height (Feet): 6 Height (Inches): 0.00 Weight (Pounds): 160 General Appearance: no apparent distress EENT: PERRL/EOMI Neck: supple Cardiovascular: normal rate Respiratory/Chest: decreased breath sounds Abdomen: normal bowel sounds, non tender, soft Extremities: non-tender Terence Anton MD October 04, 2019 06:41
[2019-10-04 08:00] VITALS: BP 138/79
--- NOTE | 2019-10-04 08:19 | Pulmonology Progress Note ---
Assessment/Plan Assessment/Plan IMPRESSION: 1. Right lung pneumonia. 2. [facility] resident. 3. Recent hospitalization at acute hospital. 4. Diabetes mellitus. 5. Hypertension. 6. COPD. 7. Pacemaker. DISCUSSION: Continue broad-spectrum antibiotics. Continue oxygen, pulmonary hygiene. I will follow carefully. COVID 19 pcr x 1 negative Truman Bradford M.D. Subjective ROS Limited/Unobtainable: No Interval Events: None new Constitutional: Denies: fever HEENT: Repors: no symptoms Respiratory: Reports: dry cough, shortness of breath Cardiovascular: Reports: no symptoms Gastrointestinal/Abdominal: Reports: no symptoms Allergies: Coded Allergies: PNEUMOCOCCAL VACCINE (Unverified Allergy, Unknown, 10/07/18) Uncoded Allergies: PNA VACCINE (Allergy, Unknown, 09/30/19) All Systems: reviewed and negative except above Objective Last 24 Hour Vital Signs Date Time Temp Pulse Resp B/P (MAP) Pulse Ox O2 Delivery O2 Flow Rate FiO2 10/04/19 04:00 94 10/04/19 04:00 98.0 72 18 119/77 (91) 98 10/04/19 00:00 96.9 68 18 122/81 (95) 96 10/04/19 00:00 66 10/03/19 21:00 Nasal Cannula 2.0 10/03/19 20:00 97.3 74 18 117/67 (84) 97 10/03/19 20:00 75 10/03/19 17:39 127/73 10/03/19 16:04 80 10/03/19 16:00 98.9 81 21 127/73 (91) 99 10/03/19 12:52 121/68 10/03/19 12:00 99.3 83 22 121/68 (85) 100 10/03/19 11:46 82 10/03/19 09:05 80 125/66 10/03/19 09:00 Nasal Cannula 2.0 Intake and Output 10/03/19 10/04/19 19:00 07:00 Intake Total 550 ml Output Total 900 ml 1400 ml Balance -350 ml -1400 ml Tube Feeding 550 ml Output Urine Total 900 ml 1400 ml General Appearance: no acute distress HEENT: mucous membranes moist Respiratory/Chest: chest wall non-tender, decreased breath sounds Cardiovascular: normal peripheral pulses, normal rate Abdomen: soft, non tender, other - feeding Extremities: no edema Neurologic/Psychiatric: aphasia Current Medications Medications (Trade) Dose Ordered Sig/Nidhi Route PRN Reason Start Time Stop Time Status Last Admin Dose Admin Acetaminophen (Tylenol) 650 mg Q4H PRN GT Pain/Temp >100.5 10/01/19 03:30 10/30/19 23:29 Amlodipine Besylate (Norvasc) 10 mg DAILY GT 10/01/19 09:00 10/31/19 08:59 10/03/19 09:05 Ascorbic Acid (Vitamin C) 250 mg BID GT 10/01/19 09:00 10/31/19 08:59 10/03/19 17:38 Clonidine HCl (Catapres Tab) 0.1 mg EVERY 6 HOURS GT 10/01/19 00:00 12/30/19 00:00 10/03/19 17:39 Dextrose (Dextrose 50%) 25 ml Q30M PRN IV Hypoglycemia 09/30/19 22:00 12/29/19 21:59 Dextrose (Dextrose 50%) 50 ml Q30M PRN IV Hypoglycemia 09/30/19 22:00 12/29/19 21:59 Docusate Sodium (Colace) 100 mg TWICE A DAY GT 10/01/19 09:00 10/31/19 08:59 10/03/19 17:39 Donepezil HCl (Aricept) 5 mg BEDTIME GT 10/01/19 21:00 10/31/19 20:59 10/03/19 20:50 Ferrous Sulfate (Feosol) 325 mg BID GT 10/01/19 09:00 12/30/19 08:59 10/03/19 17:39 Heparin Sodium (Porcine) (Heparin 5000 units/ml) 5,000 units EVERY 8 HOURS SUBQ 10/01/19 06:00 11/15/19 05:59 10/04/19 05:47 Insulin Aspart (NovoLOG) BEFORE MEALS AND HS SUBQ 09/30/19 21:51 12/29/19 21:50 10/02/19 21:24 Levetiracetam (Keppra) 500 mg Q12HR GT 10/01/19 09:00 11/15/19 08:59 10/03/19 20:50 Magnesium Hydroxide (Mom) 30 ml DAILY GT 10/01/19 09:00 10/31/19 08:59 10/03/19 09:06 Metoclopramide HCl (Reglan) 5 mg Q6H PRN IVP Nausea & Vomiting 10/02/19 09:45 11/01/19 09:44 Multivitamins (Multivitamins) 1 tab DAILY GT 10/01/19 09:00 10/31/19 08:59 10/03/19 09:06 Phenytoin (Dilantin) 300 mg DAILY GT 10/01/19 09:00 11/15/19 08:59 10/03/19 09:06 Polymyxin B Sulfate 196753 units/Dextrose 550 ml @ 550 mls/hr Q12H IV 10/03/19 13:00 10/10/19 12:59 10/04/19 01:13 Sennosides (Senokot) 8.6 mg DAILY GT 10/01/19 09:00 10/31/19 08:59 10/03/19 09:05 Truman Bradford MD October 04, 2019 08:19
[2019-10-04] MEDS: Docusate 100mg/10ml Liq GT SCH ×2 (08:49→17:40)
[2019-10-04] MEDS: Ferrous Sulfate 300 MG/5 ML UDC GT SCH ×2 (08:49→17:40)
[2019-10-04] MEDS: levETIRAcetam 500mg/5ml Liquid GT SCH ×2 (08:49→21:17)
[2019-10-04] MEDS: Milk of Magnesia 30ml Ud GT SCH (08:49)
[2019-10-04] MEDS: Phenytoin Susp 100mg/4ml GT SCH (08:50)
[2019-10-04] MEDS: Ascorbic Acid 500mg tab GT SCH ×2 (08:50→17:40)
[2019-10-04] MEDS: Sennosides 8.6mg tab GT SCH (08:50)
[2019-10-04 09:23] LABS: BASOPHILS % (AUTO) 1.1 % (0.0-2.0); EOSINOPHILS % (AUTO) 1.9 % (0.0-3.0); HEMATOCRIT 29.6 % (42.0-52.0); HEMOGLOBIN 9.9 G/DL (14.2-18.0); LYMPHOCYTES % (AUTO) 29.7 % (20.0-45.0); MEAN CORPUSCULAR VOLUME 97 FL (80-99); MONOCYTES % (AUTO) 5.4 % (1.0-10.0); NEUTROPHILS % (AUTO) 61.8 % (45.0-75.0); PLATELET COUNT 375 K/UL (150-450); RED BLOOD COUNT 3.06 M/UL (4.70-6.10); RED CELL DISTRIBUTION WIDTH 13.6 % (11.6-14.8); WHITE BLOOD COUNT 10.9 K/UL (4.8-10.8)
[2019-10-04 09:37] LABS: ANION GAP 7 mmol/L (5-15); BLOOD UREA NITROGEN 12 mg/dL (7-18); CALCIUM 9.8 MG/DL (8.5-10.1); CARBON DIOXIDE 32 MMOL/L (21-32); CHLORIDE 103 MMOL/L (98-107); CREATININE 0.7 MG/DL (0.55-1.30); POTASSIUM 3.7 MMOL/L (3.5-5.1); SODIUM 142 MMOL/L (136-145)
--- NOTE | 2019-10-04 11:30 | Surgery Progress Note ---
Surgery Progress Note Subjective Additional Comments patient seen and examined at bedside no acute events comfortable labs noted no complaints on mattress on side Objective Last 24 Hour Vital Signs Date Time Temp Pulse Resp B/P (MAP) Pulse Ox O2 Delivery O2 Flow Rate FiO2 10/04/19 09:00 Nasal Cannula 2.0 10/04/19 08:50 87 138/79 10/04/19 08:00 98.0 87 20 138/79 (98) 100 10/04/19 04:00 94 10/04/19 04:00 98.0 72 18 119/77 (91) 98 10/04/19 00:00 96.9 68 18 122/81 (95) 96 10/04/19 00:00 66 10/03/19 21:00 Nasal Cannula 2.0 10/03/19 20:00 97.3 74 18 117/67 (84) 97 10/03/19 20:00 75 10/03/19 17:39 127/73 10/03/19 16:04 80 10/03/19 16:00 98.9 81 21 127/73 (91) 99 10/03/19 12:52 121/68 10/03/19 12:00 99.3 83 22 121/68 (85) 100 10/03/19 11:46 82 I&O Intake and Output 10/03/19 10/04/19 19:00 07:00 Intake Total 550 ml Output Total 900 ml 1400 ml Balance -350 ml -1400 ml Tube Feeding 550 ml Output Urine Total 900 ml 1400 ml Laboratory Tests Test 10/04/19 07:12 White Blood Count 10.9 K/UL (4.8-10.8) H Red Blood Count 3.06 M/UL (4.70-6.10) L Hemoglobin 9.9 G/DL (14.2-18.0) L Hematocrit 29.6 % (42.0-52.0) L Mean Corpuscular Volume 97 FL (80-99) Mean Corpuscular Hemoglobin 32.4 PG (27.0-31.0) H Mean Corpuscular Hemoglobin Concent 33.4 G/DL (32.0-36.0) Red Cell Distribution Width 13.6 % (11.6-14.8) Platelet Count 375 K/UL (150-450) Mean Platelet Volume 5.4 FL (6.5-10.1) L Neutrophils (%) (Auto) 61.8 % (45.0-75.0) Lymphocytes (%) (Auto) 29.7 % (20.0-45.0) Monocytes (%) (Auto) 5.4 % (1.0-10.0) Eosinophils (%) (Auto) 1.9 % (0.0-3.0) Basophils (%) (Auto) 1.1 % (0.0-2.0) Sodium Level 142 MMOL/L (136-145) Potassium Level 3.7 MMOL/L (3.5-5.1) Chloride Level 103 MMOL/L (98-107) Carbon Dioxide Level 32 MMOL/L (21-32) Anion Gap 7 mmol/L (5-15) Blood Urea Nitrogen 12 mg/dL (7-18) Creatinine 0.7 MG/DL (0.55-1.30) Estimat Glomerular Filtration Rate > 60 mL/min (>60) Glucose Level 98 MG/DL (74-106) Calcium Level 9.8 MG/DL (8.5-10.1) Plan Problems: (1) Decubitus skin ulcer Assessment & Plan: Pt presented on admission with multiple pressure injuries. Resolving pressure injury cleft of R ear. [place] epithelial at base of wound with marginal erythema. Non-blanching erythema cleft of L ear. Pt is receiving o2 via nasal cannula, and oxygen tubing padded with gauze to minimize pressure and friction to both ears. Unstageable Sacral Pressure Injury(L)9.4cm x (W)7.8cm. Base of wound is 75% necrotic and and soft, 20% surrounding slough,Marginal erythema and macerated borders. Mild odor noted. Small amt seropurulent exudate.Periwound,skin tone is darker without elevation in skin temp, fluctuance or induration.small area of hyperpigmentation noted to L gluteal cheek. L Heel extending into plantar aspect is boggy with non-blanching erythema. Non-blanching erythema R heel without induration or fluctuance. Xerosis skin both feet. Tx.Plan: Cleanse Sacral wound with Saline. Apply Therahoney. Apply Moisture Barrier Paste periwound. Cover with Optifoam Drsg. Change every 3 days and prn. Apply Moisture Barrier paste to Perineum, R and L buttocks with each incontinence care. Apply Cavilon Skin Barrier to both heels. Cover each heel with Optifoam drsg. Change every 7 days and prn. Apply Cavilon Skin Barrier to clefts of both R and L ears Daily. Pad Oxygen tubing with gauze around Ears. Keep Oxygen tubing loose around Ears. Reposition at least every 2hours or as tolerated. Off-load heels with pillow. APM/CHRISTOPHER Mattress overlay. (2) Leukocytosis Assessment & Plan: leukocytosis 28k on admission trending down resolving wbc on abx wounds unlikely etiology pna ua noted cont abx as per id will follow with recs thank you (3) Lung mass (4) Protein-calorie malnutrition, severe Assessment & Plan: There is a gastrostomy tube in place. Previously demonstrated nasogastric tube is no longer evident. Bowel gas pattern is unremarkable. No masses or unusual calcifications. There is evidence of a Macedo catheter. There is a right hip prosthesis. There are degenerative changes of the lumbar spine nutritional optimization tube feeds bmi noted alb low DAILY ESTIMATED NEEDS: Needs based on Pulmonary, wounds; 72.5kg 25-30 kcals/kg 0461-9561 total kcals 1.25-1.5 g protein/kg 90-108 g total protein 25-30 mL/kg 8894-9856 total fluid mLs NUTRITION DIAGNOSIS: 1. Increased pro needs r/t wound healing as evidenced by pt adm w/ multiple wounds including unstageable sacral wound, refer to WC eval. 2. Swallowing difficulty r/t dysphagia as evidenced by GT dependent. CURRENT TF:Glucerna 1.5 @ 50ml/hr x 22 hrs (on Dilantin QD) ENTERAL NUTRITION RECOMMENDATIONS: Glucerna 1.5 @55ml/hr x22 hrs (1 hr held before and after Dilantin med) to provide 1210ml, 1815kcal, 100g prot, 918ml free water - Increase goal rate to 55ml/hr to meet 100% est kcal/prot needs - Hold 1 hr before and after Dilantin med - HOB over 30 degrees ADDITIONAL RECOMMENDATIONS: * Wound healing: continue Vit C add KESHIA in 4oz H2O BID via GT * Calibrated bedscale wt for accurate CBW * Check lytes daily w/ TF, replete as needed * Monitor TF tolerance/residuals * DC D5 once TF @ goal (5) Suspected COVID-19 virus infection Assessment & Plan: covid negative Right basilar consolidation and atelectasis, could indicate pneumonia. Minimal left basilar atelectasis Gabino Little October 04, 2019 11:30
[2019-10-04 12:00] VITALS: BP 130/72
--- NOTE | 2019-10-04 13:48 | Cardiac Electrophysiology PN ---
Assessment/Plan Assessment/Plan 1. Sinus tachycardia due to pneumonia and dehydration. Sodium was 150 and white count was [address]. Improved on Abx and iv fluid that was DCed today 2. Hypertension on amlodipine 10 mg daily. 3. Shortness of breath, fever, and high white count. On IV antibiotic and being ruled out for COVID and isolation( first Covid is negative. Second is pending). 4. History of seizures, on Keppra. 5. Dysphagia, s/P PEG placement. 6. Hypernatremia and dehydration. Resolved DW RN Subjective Subjective In isolation for Covid (negative x1. Swabbed again ,results pending). In SR Objective Last 24 Hour Vital Signs Date Time Temp Pulse Resp B/P (MAP) Pulse Ox O2 Delivery O2 Flow Rate FiO2 10/04/19 12:04 130/72 10/04/19 12:00 98.1 84 18 130/72 (91) 96 10/04/19 09:00 Nasal Cannula 2.0 10/04/19 08:50 87 138/79 10/04/19 08:00 98.0 87 20 138/79 (98) 100 10/04/19 07:52 88 10/04/19 04:00 94 10/04/19 04:00 98.0 72 18 119/77 (91) 98 10/04/19 00:00 96.9 68 18 122/81 (95) 96 10/04/19 00:00 66 10/03/19 21:00 Nasal Cannula 2.0 10/03/19 20:00 97.3 74 18 117/67 (84) 97 10/03/19 20:00 75 10/03/19 17:39 127/73 10/03/19 16:04 80 10/03/19 16:00 98.9 81 21 127/73 (91) 99 Intake and Output 10/03/19 10/04/19 19:00 07:00 Intake Total 550 ml Output Total 900 ml 1400 ml Balance -350 ml -1400 ml Tube Feeding 550 ml Output Urine Total 900 ml 1400 ml Laboratory Tests Test 10/04/19 07:12 White Blood Count 10.9 K/UL (4.8-10.8) H Red Blood Count 3.06 M/UL (4.70-6.10) L Hemoglobin 9.9 G/DL (14.2-18.0) L Hematocrit 29.6 % (42.0-52.0) L Mean Corpuscular Volume 97 FL (80-99) Mean Corpuscular Hemoglobin 32.4 PG (27.0-31.0) H Mean Corpuscular Hemoglobin Concent 33.4 G/DL (32.0-36.0) Red Cell Distribution Width 13.6 % (11.6-14.8) Platelet Count 375 K/UL (150-450) Mean Platelet Volume 5.4 FL (6.5-10.1) L Neutrophils (%) (Auto) 61.8 % (45.0-75.0) Lymphocytes (%) (Auto) 29.7 % (20.0-45.0) Monocytes (%) (Auto) 5.4 % (1.0-10.0) Eosinophils (%) (Auto) 1.9 % (0.0-3.0) Basophils (%) (Auto) 1.1 % (0.0-2.0) Sodium Level 142 MMOL/L (136-145) Potassium Level 3.7 MMOL/L (3.5-5.1) Chloride Level 103 MMOL/L (98-107) Carbon Dioxide Level 32 MMOL/L (21-32) Anion Gap 7 mmol/L (5-15) Blood Urea Nitrogen 12 mg/dL (7-18) Creatinine 0.7 MG/DL (0.55-1.30) Estimat Glomerular Filtration Rate > 60 mL/min (>60) Glucose Level 98 MG/DL (74-106) Calcium Level 9.8 MG/DL (8.5-10.1) Objective HEAD AND NECK: No JVD. LUNGS: Coarse rhonchi. CARDIOVASCULAR: Regular S1 and S2 with no gallop. ABDOMEN: Status post G-tube. EXTREMITIES: No pitting edema. Sajan Campbell MD October 04, 2019 13:48
[2019-10-04 16:00] VITALS: BP 131/59
[2019-10-04 20:00] VITALS: BP 109/65
--- NOTE | 2019-10-04 20:13 | General Progress Note ---
Assessment/Plan Problem List: (1) Fever ICD Codes: R50.9 - Fever, unspecified SNOMED: 046615198 (2) COPD (chronic obstructive pulmonary disease) ICD Codes: J44.9 - Chronic obstructive pulmonary disease, unspecified SNOMED: 39760292 (3) Severe sepsis ICD Codes: A41.9 - Sepsis, unspecified organism; R65.20 - Severe sepsis without septic shock SNOMED: 66144851 (4) PEG (percutaneous endoscopic gastrostomy) adjustment/replacement/removal ICD Codes: Z43.1 - Encounter for attention to gastrostomy SNOMED: 099356015, 993631668 (5) Protein-calorie malnutrition, severe ICD Codes: E43 - Unspecified severe protein-calorie malnutrition SNOMED: 530240880 (6) Acute febrile illness ICD Codes: R50.9 - Fever, unspecified SNOMED: 968519354 (7) PNA (pneumonia) ICD Codes: J18.9 - Pneumonia, unspecified organism SNOMED: 637739287 (8) Suspected COVID-19 virus infection ICD Codes: Z20.828 - Contact with and (suspected) exposure to other viral communicable diseases SNOMED: 868175477 (9) Congestion secondary to upper respiratory illness Status: progressing Assessment/Plan: pna resp insuff afebrile malnutrition improving leukocytosis resolved nonverbal reviewed chart and labs Subjective ROS Limited/Unobtainable: Yes Allergies: Coded Allergies: PNEUMOCOCCAL VACCINE (Unverified Allergy, Unknown, 10/07/18) Uncoded Allergies: PNA VACCINE (Allergy, Unknown, 09/30/19) Objective Last 24 Hour Vital Signs Date Time Temp Pulse Resp B/P (MAP) Pulse Ox O2 Delivery O2 Flow Rate FiO2 10/04/19 17:40 131/59 10/04/19 16:00 98.2 80 20 131/59 (83) 98 10/04/19 16:00 79 10/04/19 12:17 89 10/04/19 12:04 130/72 10/04/19 12:00 98.1 84 18 130/72 (91) 96 10/04/19 09:00 Nasal Cannula 2.0 10/04/19 08:50 87 138/79 10/04/19 08:00 98.0 87 20 138/79 (98) 100 10/04/19 07:52 88 10/04/19 04:00 94 10/04/19 04:00 98.0 72 18 119/77 (91) 98 10/04/19 00:00 96.9 68 18 122/81 (95) 96 10/04/19 00:00 66 10/03/19 21:00 Nasal Cannula 2.0 Intake and Output 10/03/19 10/04/19 19:00 07:00 Intake Total 550 ml 50 ml Output Total 900 ml 1400 ml Balance -350 ml -1350 ml Tube Feeding 550 ml 50 ml Output Urine Total 900 ml 1400 ml Laboratory Tests 10/04/19 07:12: White Blood Count 10.9H, Red Blood Count 3.06L, Hemoglobin 9.9L, Hematocrit 29.6L, Mean Corpuscular Volume 97, Mean Corpuscular Hemoglobin 32.4H, Mean Corpuscular Hemoglobin Concent 33.4, Red Cell Distribution Width 13.6, Platelet Count 375, Mean Platelet Volume 5.4L, Neutrophils (%) (Auto) 61.8, Lymphocytes ( %) (Auto) 29.7, Monocytes (%) (Auto) 5.4, Eosinophils (%) (Auto) 1.9, Basophils (%) (Auto) 1.1, Sodium Level 142, Potassium Level 3.7, Chloride Level 103, Carbon Dioxide Level 32, Anion Gap 7, Blood Urea Nitrogen 12, Creatinine 0.7, Estimat Glomerular Filtration Rate > 60, Glucose Level 98, Calcium Level 9.8 Height (Feet): 6 Height (Inches): 0.00 Weight (Pounds): 160 Konrad Soares MD October 04, 2019 20:13
[2019-10-04] MEDS: Donepezil 5mg Tab GT SCH (21:17)
[2019-10-05] VITALS: BP 110/69
[2019-10-05] MEDS: Polymyxin B Sulfate 500,000 UNITS in D5W 500ml 550 ML IV SCH ×2 (00:19→12:49)
[2019-10-05 04:00] VITALS: BP 137/70
--- NOTE | 2019-10-05 06:24 | General Progress Note ---
Assessment/Plan Status: progressing Assessment/Plan: 1. Hypertension. 2. Diabetes. 3. COPD. 4. History of pacemaker placement. 5. Dementia. 6. gastroparesis reglan GTF GT flushes repeat labs pending dc will fu Subjective ROS Limited/Unobtainable: No Allergies: Coded Allergies: PNEUMOCOCCAL VACCINE (Unverified Allergy, Unknown, 10/07/18) Uncoded Allergies: PNA VACCINE (Allergy, Unknown, 09/30/19) Objective Last 24 Hour Vital Signs Date Time Temp Pulse Resp B/P (MAP) Pulse Ox O2 Delivery O2 Flow Rate FiO2 10/05/19 04:00 78 10/05/19 04:00 98.2 74 19 137/70 (92) 96 10/05/19 00:14 117/61 10/05/19 00:00 98.0 72 17 110/69 (83) 98 10/05/19 00:00 77 10/04/19 21:00 Nasal Cannula 2.0 10/04/19 20:00 98.2 74 16 109/65 (80) 99 10/04/19 20:00 77 10/04/19 17:40 131/59 10/04/19 16:00 98.2 80 20 131/59 (83) 98 10/04/19 16:00 79 10/04/19 12:17 89 10/04/19 12:04 130/72 10/04/19 12:00 98.1 84 18 130/72 (91) 96 10/04/19 09:00 Nasal Cannula 2.0 10/04/19 08:50 87 138/79 10/04/19 08:00 98.0 87 20 138/79 (98) 100 10/04/19 07:52 88 Intake and Output 10/04/19 10/05/19 19:00 07:00 Intake Total 600 ml Output Total 1100 ml Balance -500 ml Tube Feeding 600 ml Output Urine Total 1100 ml Laboratory Tests 10/04/19 07:12: White Blood Count 10.9H, Red Blood Count 3.06L, Hemoglobin 9.9L, Hematocrit 29.6L, Mean Corpuscular Volume 97, Mean Corpuscular Hemoglobin 32.4H, Mean Corpuscular Hemoglobin Concent 33.4, Red Cell Distribution Width 13.6, Platelet Count 375, Mean Platelet Volume 5.4L, Neutrophils (%) (Auto) 61.8, Lymphocytes ( %) (Auto) 29.7, Monocytes (%) (Auto) 5.4, Eosinophils (%) (Auto) 1.9, Basophils (%) (Auto) 1.1, Sodium Level 142, Potassium Level 3.7, Chloride Level 103, Carbon Dioxide Level 32, Anion Gap 7, Blood Urea Nitrogen 12, Creatinine 0.7, Estimat Glomerular Filtration Rate > 60, Glucose Level 98, Calcium Level 9.8 Height (Feet): 6 Height (Inches): 0.00 Weight (Pounds): 160 General Appearance: alert EENT: normal ENT inspection Neck: supple Cardiovascular: normal rate Respiratory/Chest: decreased breath sounds Abdomen: normal bowel sounds, non tender, soft Extremities: non-tender Terence Anton MD October 05, 2019 06:24
[2019-10-05] MEDS: NovoLOG Insulin Flexpen SUBQ SCH ×4 (06:30→21:00)
[2019-10-05] MEDS: Heparin 5000 units/ml inj SUBQ SCH ×3 (06:35→22:15)
[2019-10-05 08:00] VITALS: BP 108/64
[2019-10-05] MEDS: Sennosides 8.6mg tab GT SCH (08:30)
[2019-10-05] MEDS: Docusate 100mg/10ml Liq GT SCH ×2 (08:31→18:29)
[2019-10-05] MEDS: Ascorbic Acid 500mg tab GT SCH ×2 (08:31→18:29)
[2019-10-05] MEDS: Phenytoin Susp 100mg/4ml GT SCH (08:31)
[2019-10-05] MEDS: Milk of Magnesia 30ml Ud GT SCH (08:31)
[2019-10-05] MEDS: levETIRAcetam 500mg/5ml Liquid GT SCH ×2 (08:31→20:16)
[2019-10-05] MEDS: Ferrous Sulfate 300 MG/5 ML UDC GT SCH ×2 (08:31→18:28)
[2019-10-05 09:36] LABS: BASOPHILS % (AUTO) 1.3 % (0.0-2.0); EOSINOPHILS % (AUTO) 2.7 % (0.0-3.0); HEMATOCRIT 29.4 % (42.0-52.0); HEMOGLOBIN 9.8 G/DL (14.2-18.0); LYMPHOCYTES % (AUTO) 24.8 % (20.0-45.0); MEAN CORPUSCULAR VOLUME 97 FL (80-99); MONOCYTES % (AUTO) 7.8 % (1.0-10.0); NEUTROPHILS % (AUTO) 63.4 % (45.0-75.0); PLATELET COUNT 175 K/UL (150-450); RED BLOOD COUNT 3.03 M/UL (4.70-6.10); RED CELL DISTRIBUTION WIDTH 13.9 % (11.6-14.8); WHITE BLOOD COUNT 12.1 K/UL (4.8-10.8)
[2019-10-05 09:41] LABS: ANION GAP 6 mmol/L (5-15); BLOOD UREA NITROGEN 13 mg/dL (7-18); CALCIUM 9.4 MG/DL (8.5-10.1); CARBON DIOXIDE 29 MMOL/L (21-32); CHLORIDE 103 MMOL/L (98-107); CREATININE 0.7 MG/DL (0.55-1.30); SODIUM 138 MMOL/L (136-145)
[2019-10-05 12:00] VITALS: BP 121/60
--- NOTE | 2019-10-05 12:18 | Infectious Diseases Prog Note ---
Assessment/Plan Assessment/Plan IMPRESSION: 1. MDR Acinetobacter sepsis 2. Pneumonia. Negative COVID19 X 1 3. Unstageable pressure ulcer that doesn't seem to be infected . 4. Hypernatremia. 5. Anemia. 6. Advanced dementia. 7. History of diverticulosis. 8. Gastrostomy status. RECOMMENDATION: continue Polymyxin B We will follow up cultures will f/u COVID-19 test Subjective ROS Limited/Unobtainable: Yes Constitutional: Denies: fever Allergies: Coded Allergies: PNEUMOCOCCAL VACCINE (Unverified Allergy, Unknown, 10/07/18) Uncoded Allergies: PNA VACCINE (Allergy, Unknown, 09/30/19) Objective Vital Signs Last 24 Hour Vital Signs Date Time Temp Pulse Resp B/P (MAP) Pulse Ox O2 Delivery O2 Flow Rate FiO2 10/05/19 09:00 Nasal Cannula 2.0 10/05/19 08:32 81 108/64 10/05/19 08:00 72 10/05/19 08:00 97.7 81 19 108/64 (79) 96 10/05/19 07:50 96 Nasal Cannula 2.0 28 10/05/19 06:09 137/70 10/05/19 04:00 78 10/05/19 04:00 98.2 74 19 137/70 (92) 96 10/05/19 00:14 117/61 10/05/19 00:00 98.0 72 17 110/69 (83) 98 10/05/19 00:00 77 10/04/19 21:00 Nasal Cannula 2.0 10/04/19 20:00 98.2 74 16 109/65 (80) 99 10/04/19 20:00 77 10/04/19 17:40 131/59 10/04/19 16:00 98.2 80 20 131/59 (83) 98 10/04/19 16:00 79 10/04/19 12:17 89 Height (Feet): 6 Height (Inches): 0.00 Weight (Pounds): 160 General Appearance: no acute distress HEENT: mucous membranes moist Respiratory/Chest: other - oxygen by nasal cannula Cardiovascular: normal rate Abdomen: soft, non tender, other - GT feeding Extremities: no edema Neurologic/Psychiatric: aphasia Laboratory Tests Test 10/05/19 07:15 White Blood Count 12.1 K/UL (4.8-10.8) H Red Blood Count 3.03 M/UL (4.70-6.10) L Hemoglobin 9.8 G/DL (14.2-18.0) L Hematocrit 29.4 % (42.0-52.0) L Mean Corpuscular Volume 97 FL (80-99) Mean Corpuscular Hemoglobin 32.5 PG (27.0-31.0) H Mean Corpuscular Hemoglobin Concent 33.5 G/DL (32.0-36.0) Red Cell Distribution Width 13.9 % (11.6-14.8) Platelet Count 175 K/UL (150-450) # Mean Platelet Volume 6.2 FL (6.5-10.1) L Neutrophils (%) (Auto) 63.4 % (45.0-75.0) Lymphocytes (%) (Auto) 24.8 % (20.0-45.0) Monocytes (%) (Auto) 7.8 % (1.0-10.0) Eosinophils (%) (Auto) 2.7 % (0.0-3.0) Basophils (%) (Auto) 1.3 % (0.0-2.0) Sodium Level 138 MMOL/L (136-145) Potassium Level 5.0 MMOL/L (3.5-5.1) Chloride Level 103 MMOL/L (98-107) Carbon Dioxide Level 29 MMOL/L (21-32) Anion Gap 6 mmol/L (5-15) Blood Urea Nitrogen 13 mg/dL (7-18) Creatinine 0.7 MG/DL (0.55-1.30) Estimat Glomerular Filtration Rate > 60 mL/min (>60) Glucose Level 89 MG/DL (74-106) Calcium Level 9.4 MG/DL (8.5-10.1) Current Medications Medications (Trade) Dose Ordered Sig/Nidhi Route PRN Reason Start Time Stop Time Status Last Admin Dose Admin Acetaminophen (Tylenol) 650 mg Q4H PRN GT Pain/Temp >100.5 10/01/19 03:30 10/30/19 23:29 Amlodipine Besylate (Norvasc) 10 mg DAILY GT 10/01/19 09:00 10/31/19 08:59 10/05/19 08:32 Ascorbic Acid (Vitamin C) 250 mg BID GT 10/01/19 09:00 10/31/19 08:59 10/05/19 08:31 Clonidine HCl (Catapres Tab) 0.1 mg EVERY 6 HOURS GT 10/01/19 00:00 12/30/19 00:00 10/05/19 06:09 Dextrose (Dextrose 50%) 25 ml Q30M PRN IV Hypoglycemia 09/30/19 22:00 12/29/19 21:59 Dextrose (Dextrose 50%) 50 ml Q30M PRN IV Hypoglycemia 09/30/19 22:00 12/29/19 21:59 Docusate Sodium (Colace) 100 mg TWICE A DAY GT 10/01/19 09:00 10/31/19 08:59 10/05/19 08:31 Donepezil HCl (Aricept) 5 mg BEDTIME GT 10/01/19 21:00 10/31/19 20:59 10/04/19 21:17 Ferrous Sulfate (Feosol) 325 mg BID GT 10/01/19 09:00 12/30/19 08:59 10/05/19 08:31 Heparin Sodium (Porcine) (Heparin 5000 units/ml) 5,000 units EVERY 8 HOURS SUBQ 10/01/19 06:00 11/15/19 05:59 10/05/19 06:35 Insulin Aspart (NovoLOG) BEFORE MEALS AND HS SUBQ 09/30/19 21:51 12/29/19 21:50 10/02/19 21:24 Levetiracetam (Keppra) 500 mg Q12HR GT 10/01/19 09:00 11/15/19 08:59 10/05/19 08:31 Magnesium Hydroxide (Mom) 30 ml DAILY GT 10/01/19 09:00 10/31/19 08:59 10/05/19 08:31 Metoclopramide HCl (Reglan) 5 mg Q6H PRN IVP Nausea & Vomiting 10/02/19 09:45 11/01/19 09:44 Multivitamins (Multivitamins) 1 tab DAILY GT 10/01/19 09:00 10/31/19 08:59 10/05/19 08:31 Phenytoin (Dilantin) 300 mg DAILY GT 10/01/19 09:00 11/15/19 08:59 5/3/20 08:31 Polymyxin B Sulfate 373825 units/Dextrose 550 ml @ 550 mls/hr Q12H IV 10/03/19 13:00 10/10/19 12:59 10/05/19 00:19 Sennosides (Senokot) 8.6 mg DAILY GT 10/01/19 09:00 10/31/19 08:59 10/05/19 08:30 Curtis Farah MD October 05, 2019 12:18
[2019-10-05 16:00] VITALS: BP 122/73
--- NOTE | 2019-10-05 16:56 | Pulmonology Progress Note ---
Assessment/Plan Assessment/Plan IMPRESSION: 1. Right lung pneumonia. 2. prison resident. 3. Recent hospitalization at acute hospital. 4. Diabetes mellitus. 5. Hypertension. 6. COPD. 7. Pacemaker. DISCUSSION: Continue broad-spectrum antibiotics. Continue oxygen, pulmonary hygiene. I will follow carefully. COVID 19 pcr x 1 negative Truman Bradford M.D. Subjective ROS Limited/Unobtainable: Yes Interval Events: None new Constitutional: Denies: fever HEENT: Repors: no symptoms Respiratory: Reports: dry cough, shortness of breath Cardiovascular: Reports: no symptoms Gastrointestinal/Abdominal: Reports: no symptoms Allergies: Coded Allergies: PNEUMOCOCCAL VACCINE (Unverified Allergy, Unknown, 10/07/18) Uncoded Allergies: PNA VACCINE (Allergy, Unknown, 09/30/19) All Systems: reviewed and negative except above Objective Last 24 Hour Vital Signs Date Time Temp Pulse Resp B/P (MAP) Pulse Ox O2 Delivery O2 Flow Rate FiO2 10/05/19 12:49 121/60 10/05/19 12:00 97.4 73 19 121/60 (80) 95 10/05/19 11:57 69 10/05/19 09:00 Nasal Cannula 2.0 10/05/19 08:32 81 108/64 10/05/19 08:00 72 10/05/19 08:00 97.7 81 19 108/64 (79) 96 10/05/19 07:50 96 Nasal Cannula 2.0 28 10/05/19 06:09 137/70 10/05/19 04:00 78 10/05/19 04:00 98.2 74 19 137/70 (92) 96 10/05/19 00:14 117/61 10/05/19 00:00 98.0 72 17 110/69 (83) 98 10/05/19 00:00 77 10/04/19 21:00 Nasal Cannula 2.0 10/04/19 20:00 98.2 74 16 109/65 (80) 99 10/04/19 20:00 77 10/04/19 17:40 131/59 Intake and Output 10/04/19 10/05/19 19:00 07:00 Intake Total 650 ml 800 ml Output Total 1100 ml 1200 ml Balance -450 ml -400 ml Intake Free Water 200 ml Tube Feeding 650 ml 600 ml Output Urine Total 1100 ml 1200 ml # Voids 1 General Appearance: no acute distress HEENT: mucous membranes moist Respiratory/Chest: chest wall non-tender, decreased breath sounds Cardiovascular: normal peripheral pulses, normal rate Abdomen: soft, non tender, other - GT feeding Extremities: no edema Neurologic/Psychiatric: aphasia Laboratory Tests 10/05/19 07:15: White Blood Count 12.1H, Red Blood Count 3.03L, Hemoglobin 9.8L, Hematocrit 29.4L, Mean Corpuscular Volume 97, Mean Corpuscular Hemoglobin 32.5H, Mean Corpuscular Hemoglobin Concent 33.5, Red Cell Distribution Width 13.9, Platelet Count 175#, Mean Platelet Volume 6.2L, Neutrophils (%) (Auto) 63.4, Lymphocytes (%) (Auto) 24.8, Monocytes (%) (Auto) 7.8, Eosinophils (%) (Auto) 2.7, Basophils (%) (Auto) 1.3, Sodium Level 138, Potassium Level 5.0, Chloride Level 103, Carbon Dioxide Level 29, Anion Gap 6, Blood Urea Nitrogen 13, Creatinine 0.7, Estimat Glomerular Filtration Rate > 60, Glucose Level 89, Calcium Level 9.4 Current Medications Medications (Trade) Dose Ordered Sig/Nidhi Route PRN Reason Start Time Stop Time Status Last Admin Dose Admin Acetaminophen (Tylenol) 650 mg Q4H PRN GT Pain/Temp >100.5 10/01/19 03:30 10/30/19 23:29 Amlodipine Besylate (Norvasc) 10 mg DAILY GT 10/01/19 09:00 10/31/19 08:59 10/05/19 08:32 Ascorbic Acid (Vitamin C) 250 mg BID GT 10/01/19 09:00 10/31/19 08:59 10/05/19 08:31 Clonidine HCl (Catapres Tab) 0.1 mg EVERY 6 HOURS GT 10/01/19 00:00 12/30/19 00:00 10/05/19 12:49 Dextrose (Dextrose 50%) 25 ml Q30M PRN IV Hypoglycemia 09/30/19 22:00 12/29/19 21:59 Dextrose (Dextrose 50%) 50 ml Q30M PRN IV Hypoglycemia 09/30/19 22:00 12/29/19 21:59 Docusate Sodium (Colace) 100 mg TWICE A DAY GT 10/01/19 09:00 10/31/19 08:59 10/05/19 08:31 Donepezil HCl (Aricept) 5 mg BEDTIME GT 10/01/19 21:00 10/31/19 20:59 10/04/19 21:17 Ferrous Sulfate (Feosol) 325 mg BID GT 10/01/19 09:00 12/30/19 08:59 10/05/19 08:31 Heparin Sodium (Porcine) (Heparin 5000 units/ml) 5,000 units EVERY 8 HOURS SUBQ 10/01/19 06:00 11/15/19 05:59 10/05/19 13:53 Insulin Aspart (NovoLOG) BEFORE MEALS AND HS SUBQ 09/30/19 21:51 12/29/19 21:50 10/02/19 21:24 Levetiracetam (Keppra) 500 mg Q12HR GT 10/01/19 09:00 11/15/19 08:59 10/05/19 08:31 Magnesium Hydroxide (Mom) 30 ml DAILY GT 10/01/19 09:00 10/31/19 08:59 10/05/19 08:31 Metoclopramide HCl (Reglan) 5 mg Q6H PRN IVP Nausea & Vomiting 10/02/19 09:45 11/01/19 09:44 Multivitamins (Multivitamins) 1 tab DAILY GT 10/01/19 09:00 10/31/19 08:59 10/05/19 08:31 Phenytoin (Dilantin) 300 mg DAILY GT 10/01/19 09:00 11/15/19 08:59 10/05/19 08:31 Polymyxin B Sulfate [id number] units/Dextrose 550 ml @ 550 mls/hr Q12H IV 10/03/19 13:00 10/10/19 12:59 10/05/19 12:49 Sennosides (Senokot) 8.6 mg DAILY GT 10/01/19 09:00 10/31/19 08:59 10/05/19 08:30 Truman Bradford MD October 05, 2019 16:56
--- NOTE | 2019-10-05 18:22 | Hematology/Onc Progress Note ---
Assessment/Plan Assessment/Plan # Leukocytosis on admission, rule out covid, given snf hx of multiple covid patinets, with pna noted on imaging --> may be due to infection --> per id --> wbc 28-->11.6-->12.1 --> smear is noted --> abx cefepime/azithro-->polymyxin # Hypercalcemia r/o malignancy, r/o myeloma, elevated on admission, may be 2/2 dehydration --> Ca 10.7, pth is wnl, spep is also wnl as is upep --> on iv fluids as per pcp --> renal eval prn --> pth on prior admission was 42 # Multiple lung nodules -- in 2017 2 cm pleural-based masslike opacity containing multiple nodular calcifications andadjacent parenchymal linear density persists in the anterolateral periphery of thelateral segment right middle lobe, unchanged. Adjacent small nodular parenchymaldensities persist, unchanged. --> pulm aware --> consider ct chest once better --> Dr. 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 Subjective Allergies: Coded Allergies: PNEUMOCOCCAL VACCINE (Unverified Allergy, Unknown, 10/07/18) Uncoded Allergies: PNA VACCINE (Allergy, Unknown, 09/30/19) Subjective 10/01 nonverbal, confused, to be npo, tube feeds on hold, no bleeding, meds reviewed 10/02 remains nonverbal, on gtube feeds, labs noted, no bleeding 10/04 labs reviewed, on polymyxin, cont sq heparin q8 hrs, nc 2l, Objective Objective Current Medications Medications (Trade) Dose Ordered Sig/Nidhi Route PRN Reason Start Time Stop Time Status Last Admin Dose Admin Acetaminophen (Tylenol) 650 mg Q4H PRN GT Pain/Temp >100.5 10/01/19 03:30 10/30/19 23:29 Amlodipine Besylate (Norvasc) 10 mg DAILY GT 10/01/19 09:00 10/31/19 08:59 10/05/19 08:32 Ascorbic Acid (Vitamin C) 250 mg BID GT 10/01/19 09:00 10/31/19 08:59 10/05/19 08:31 Clonidine HCl (Catapres Tab) 0.1 mg EVERY 6 HOURS GT 10/01/19 00:00 12/30/19 00:00 10/05/19 12:49 Dextrose (Dextrose 50%) 25 ml Q30M PRN IV Hypoglycemia 09/30/19 22:00 12/29/19 21:59 Dextrose (Dextrose 50%) 50 ml Q30M PRN IV Hypoglycemia 09/30/19 22:00 12/29/19 21:59 Docusate Sodium (Colace) 100 mg TWICE A DAY GT 10/01/19 09:00 10/31/19 08:59 10/05/19 08:31 Donepezil HCl (Aricept) 5 mg BEDTIME GT 10/01/19 21:00 10/31/19 20:59 10/04/19 21:17 Ferrous Sulfate (Feosol) 325 mg BID GT 10/01/19 09:00 12/30/19 08:59 10/05/19 08:31 Heparin Sodium (Porcine) (Heparin 5000 units/ml) 5,000 units EVERY 8 HOURS SUBQ 10/01/19 06:00 11/15/19 05:59 10/05/19 13:53 Insulin Aspart (NovoLOG) BEFORE MEALS AND HS SUBQ 09/30/19 21:51 12/29/19 21:50 10/02/19 21:24 Levetiracetam (Keppra) 500 mg Q12HR GT 10/01/19 09:00 11/15/19 08:59 10/05/19 08:31 Magnesium Hydroxide (Mom) 30 ml DAILY GT 10/01/19 09:00 10/31/19 08:59 10/05/19 08:31 Metoclopramide HCl (Reglan) 5 mg Q6H PRN IVP Nausea & Vomiting 10/02/19 09:45 11/01/19 09:44 Multivitamins (Multivitamins) 1 tab DAILY GT 10/01/19 09:00 10/31/19 08:59 10/05/19 08:31 Phenytoin (Dilantin) 300 mg DAILY GT 10/01/19 09:00 11/15/19 08:59 10/05/19 08:31 Polymyxin B Sulfate [id number] units/Dextrose 550 ml @ 550 mls/hr Q12H IV 10/03/19 13:00 10/10/19 12:59 10/05/19 12:49 Sennosides (Senokot) 8.6 mg DAILY GT 10/01/19 09:00 10/31/19 08:59 10/05/19 08:30 Last 24 Hour Vital Signs Date Time Temp Pulse Resp B/P (MAP) Pulse Ox O2 Delivery O2 Flow Rate FiO2 10/05/19 16:00 98.0 75 19 122/73 (89) 95 10/05/19 15:53 83 10/05/19 12:49 121/60 10/05/19 12:00 97.4 73 19 121/60 (80) 95 10/05/19 11:57 69 10/05/19 09:00 Nasal Cannula 2.0 10/05/19 08:32 81 108/64 10/05/19 08:00 72 10/05/19 08:00 97.7 81 19 108/64 (79) 96 10/05/19 07:50 96 Nasal Cannula 2.0 28 10/05/19 06:09 137/70 10/05/19 04:00 78 10/05/19 04:00 98.2 74 19 137/70 (92) 96 10/05/19 00:14 117/61 10/05/19 00:00 98.0 72 17 110/69 (83) 98 10/05/19 00:00 77 10/04/19 21:00 Nasal Cannula 2.0 10/04/19 20:00 98.2 74 16 109/65 (80) 99 10/04/19 20:00 77 10/04/19 17:40 131/59 10/04/19 16:00 98.2 80 20 131/59 (83) 98 10/04/19 16:00 79 10/04/19 12:17 89 10/04/19 12:04 130/72 10/04/19 12:00 98.1 84 18 130/72 (91) 96 10/04/19 09:00 Nasal Cannula 2.0 10/04/19 08:50 87 138/79 10/04/19 08:00 98.0 87 20 138/79 (98) 100 10/04/19 07:52 88 10/04/19 04:00 94 10/04/19 04:00 98.0 72 18 119/77 (91) 98 10/04/19 00:00 96.9 68 18 122/81 (95) 96 10/04/19 00:00 66 10/03/19 21:00 Nasal Cannula 2.0 10/03/19 20:00 97.3 74 18 117/67 (84) 97 10/03/19 20:00 75 Intake and Output 10/04/19 10/05/19 19:00 07:00 Intake Total 650 ml 800 ml Output Total 1100 ml 1200 ml Balance -450 ml -400 ml Intake Free Water 200 ml Tube Feeding 650 ml 600 ml Output Urine Total 1100 ml 1200 ml # Voids 1 Labs Test 10/03/19 05:40 10/03/19 07:00 10/04/19 07:12 10/05/19 07:15 White Blood Count 10.5 K/UL (4.8-10.8) 10.9 K/UL (4.8-10.8) 12.1 K/UL (4.8-10.8) Red Blood Count 2.99 M/UL (4.70-6.10) 3.06 M/UL (4.70-6.10) 3.03 M/UL (4.70-6.10) Hemoglobin 9.7 G/DL (14.2-18.0) 9.9 G/DL (14.2-18.0) 9.8 G/DL (14.2-18.0) Hematocrit 28.5 % (42.0-52.0) 29.6 % (42.0-52.0) 29.4 % (42.0-52.0) Mean Corpuscular Volume 96 FL (80-99) 97 FL (80-99) 97 FL (80-99) Mean Corpuscular Hemoglobin 32.5 PG (27.0-31.0) 32.4 PG (27.0-31.0) 32.5 PG (27.0-31.0) Mean Corpuscular Hemoglobin Concent 34.0 G/DL (32.0-36.0) 33.4 G/DL (32.0-36.0) 33.5 G/DL (32.0-36.0) Red Cell Distribution Width 13.7 % (11.6-14.8) 13.6 % (11.6-14.8) 13.9 % (11.6-14.8) Platelet Count 345 K/UL (150-450) 375 K/UL (150-450) 175 K/UL (150-450) Mean Platelet Volume 5.8 FL (6.5-10.1) 5.4 FL (6.5-10.1) 6.2 FL (6.5-10.1) Neutrophils (%) (Auto) 56.5 % (45.0-75.0) 61.8 % (45.0-75.0) 63.4 % (45.0-75.0) Lymphocytes (%) (Auto) 33.1 % (20.0-45.0) 29.7 % (20.0-45.0) 24.8 % (20.0-45.0) Monocytes (%) (Auto) 6.3 % (1.0-10.0) 5.4 % (1.0-10.0) 7.8 % (1.0-10.0) Eosinophils (%) (Auto) 2.1 % (0.0-3.0) 1.9 % (0.0-3.0) 2.7 % (0.0-3.0) Basophils (%) (Auto) 2.0 % (0.0-2.0) 1.1 % (0.0-2.0) 1.3 % (0.0-2.0) Sodium Level 144 MMOL/L (136-145) 142 MMOL/L (136-145) 138 MMOL/L (136-145) Potassium Level 3.7 MMOL/L (3.5-5.1) 3.7 MMOL/L (3.5-5.1) 5.0 MMOL/L (3.5-5.1) Chloride Level 106 MMOL/L (98-107) 103 MMOL/L (98-107) 103 MMOL/L (98-107) Carbon Dioxide Level 33 MMOL/L (21-32) 32 MMOL/L (21-32) 29 MMOL/L (21-32) Anion Gap 5 mmol/L (5-15) 7 mmol/L (5-15) 6 mmol/L (5-15) Blood Urea Nitrogen 10 mg/dL (7-18) 12 mg/dL (7-18) 13 mg/dL (7-18) Creatinine 0.6 MG/DL (0.55-1.30) 0.7 MG/DL (0.55-1.30) 0.7 MG/DL (0.55-1.30) Estimat Glomerular Filtration Rate > 60 mL/min (>60) > 60 mL/min (>60) > 60 mL/min (>60) Glucose Level 112 MG/DL (74-106) 98 MG/DL (74-106) 89 MG/DL (74-106) Calcium Level 9.4 MG/DL (8.5-10.1) 9.8 MG/DL (8.5-10.1) 9.4 MG/DL (8.5-10.1) Iron Level 80 ug/dL (50-175) Total Iron Binding Capacity 195 ug/dL (250-450) Percent Iron Saturation 41 % (15-50) Unsaturated Iron Binding 115 ug/dL (112-346) Vitamin B12 Level 945 PG/ML (193-986) Folate 10.6 NG/ML (8.6-58.9) Stool Occult Blood Negative (NEGATIVE) Height (Feet): 6 Height (Inches): 0.00 Weight (Pounds): 160 Objective vitals: noted gen: nonverbal pulm: ctab, some crackles left side, nc+ heent; nc, at, eomi Cv: rrr, no mgr abd: soft, nt, nd +gtube ext: no cce Ignacio Ponce MD October 05, 2019 18:22
[2019-10-05 20:00] VITALS: BP 117/68
[2019-10-05] MEDS: Donepezil 5mg Tab GT SCH (20:16)
--- NOTE | 2019-10-05 21:03 | Surgery Progress Note ---
Surgery Progress Note Subjective Additional Comments h/h stable electrolytes okay leukocytosis 12k Objective Last 24 Hour Vital Signs Date Time Temp Pulse Resp B/P (MAP) Pulse Ox O2 Delivery O2 Flow Rate FiO2 10/05/19 18:29 122/73 10/05/19 16:00 98.0 75 19 122/73 (89) 95 10/05/19 15:53 83 10/05/19 12:49 121/60 10/05/19 12:00 97.4 73 19 121/60 (80) 95 10/05/19 11:57 69 10/05/19 09:00 Nasal Cannula 2.0 10/05/19 08:32 81 108/64 10/05/19 08:00 72 10/05/19 08:00 97.7 81 19 108/64 (79) 96 10/05/19 07:50 96 Nasal Cannula 2.0 28 10/05/19 06:09 137/70 10/05/19 04:00 78 10/05/19 04:00 98.2 74 19 137/70 (92) 96 10/05/19 00:14 117/61 10/05/19 00:00 98.0 72 17 110/69 (83) 98 10/05/19 00:00 77 I&O Intake and Output 10/04/19 10/05/19 19:00 07:00 Intake Total 650 ml 800 ml Output Total 1100 ml 1200 ml Balance -450 ml -400 ml Intake Free Water 200 ml Tube Feeding 650 ml 600 ml Output Urine Total 1100 ml 1200 ml # Voids 1 Dressing: saturated Wound: other Drains: other Cardiovascular: RSR Respiratory: decreased breath sounds Abdomen: soft, non-tender, present bowel sounds Extremities: no cyanosis, other Laboratory Tests Test 10/05/19 07:15 White Blood Count 12.1 K/UL (4.8-10.8) H Red Blood Count 3.03 M/UL (4.70-6.10) L Hemoglobin 9.8 G/DL (14.2-18.0) L Hematocrit 29.4 % (42.0-52.0) L Mean Corpuscular Volume 97 FL (80-99) Mean Corpuscular Hemoglobin 32.5 PG (27.0-31.0) H Mean Corpuscular Hemoglobin Concent 33.5 G/DL (32.0-36.0) Red Cell Distribution Width 13.9 % (11.6-14.8) Platelet Count 175 K/UL (150-450) # Mean Platelet Volume 6.2 FL (6.5-10.1) L Neutrophils (%) (Auto) 63.4 % (45.0-75.0) Lymphocytes (%) (Auto) 24.8 % (20.0-45.0) Monocytes (%) (Auto) 7.8 % (1.0-10.0) Eosinophils (%) (Auto) 2.7 % (0.0-3.0) Basophils (%) (Auto) 1.3 % (0.0-2.0) Sodium Level 138 MMOL/L (136-145) Potassium Level 5.0 MMOL/L (3.5-5.1) Chloride Level 103 MMOL/L (98-107) Carbon Dioxide Level 29 MMOL/L (21-32) Anion Gap 6 mmol/L (5-15) Blood Urea Nitrogen 13 mg/dL (7-18) Creatinine 0.7 MG/DL (0.55-1.30) Estimat Glomerular Filtration Rate > 60 mL/min (>60) Glucose Level 89 MG/DL (74-106) Calcium Level 9.4 MG/DL (8.5-10.1) Plan Problems: (1) Decubitus skin ulcer Assessment & Plan: Pt presented on admission with multiple pressure injuries. Resolving pressure injury cleft of R ear. [place] epithelial at base of wound with marginal erythema. Non-blanching erythema cleft of L ear. Pt is receiving o2 via nasal cannula, and oxygen tubing padded with gauze to minimize pressure and friction to both ears. Unstageable Sacral Pressure Injury(L)9.4cm x (W)7.8cm. Base of wound is 75% necrotic and and soft, 20% surrounding slough,Marginal erythema and macerated borders. Mild odor noted. Small amt seropurulent exudate.Periwound,skin tone is darker without elevation in skin temp, fluctuance or induration.small area of hyperpigmentation noted to L gluteal cheek. L Heel extending into plantar aspect is boggy with non-blanching erythema. Non-blanching erythema R heel without induration or fluctuance. Xerosis skin both feet. Tx.Plan: Cleanse Sacral wound with Saline. Apply Therahoney. Apply Moisture Barrier Paste periwound. Cover with Optifoam Drsg. Change every 3 days and prn. Apply Moisture Barrier paste to Perineum, R and L buttocks with each incontinence care. Apply Cavilon Skin Barrier to both heels. Cover each heel with Optifoam drsg. Change every 7 days and prn. Apply Cavilon Skin Barrier to clefts of both R and L ears Daily. Pad Oxygen tubing with gauze around Ears. Keep Oxygen tubing loose around Ears. Reposition at least every 2hours or as tolerated. Off-load heels with pillow. APM/CHRISTOPHER Mattress overlay. (2) Leukocytosis Assessment & Plan: leukocytosis 28k on admission trending down resolving wbc on abx wounds unlikely etiology pna ua noted cont abx as per id wbc 12k trending up again imaging reviewed abx changed per Id will follow with recs thank you (3) Lung mass (4) Protein-calorie malnutrition, severe Assessment & Plan: There is a gastrostomy tube in place. Previously demonstrated nasogastric tube is no longer evident. Bowel gas pattern is unremarkable. No masses or unusual calcifications. There is evidence of a Macedo catheter. There is a right hip prosthesis. There are degenerative changes of the lumbar spine nutritional optimization tube feeds bmi noted alb low DAILY ESTIMATED NEEDS: Needs based on Pulmonary, wounds; 72.5kg 25-30 kcals/kg 1871-1492 total kcals 1.25-1.5 g protein/kg 90-108 g total protein 25-30 mL/kg 2300-9984 total fluid mLs NUTRITION DIAGNOSIS: 1. Increased pro needs r/t wound healing as evidenced by pt adm w/ multiple wounds including unstageable sacral wound, refer to WC eval. 2. Swallowing difficulty r/t dysphagia as evidenced by GT dependent. CURRENT TF:Glucerna 1.5 @ 50ml/hr x 22 hrs (on Dilantin QD) ENTERAL NUTRITION RECOMMENDATIONS: Glucerna 1.5 @55ml/hr x22 hrs (1 hr held before and after Dilantin med) to provide 1210ml, 1815kcal, 100g prot, 918ml free water - Increase goal rate to 55ml/hr to meet 100% est kcal/prot needs - Hold 1 hr before and after Dilantin med - HOB over 30 degrees ADDITIONAL RECOMMENDATIONS: * Wound healing: continue Vit C add KESHIA in 4oz H2O BID via GT * Calibrated bedscale wt for accurate CBW * Check lytes daily w/ TF, replete as needed * Monitor TF tolerance/residuals * DC D5 once TF @ goal (5) Suspected COVID-19 virus infection Assessment & Plan: covid negative Right basilar consolidation and atelectasis, could indicate pneumonia. Minimal left basilar atelectasis Gabino Little October 05, 2019 21:03
--- NOTE | 2019-10-05 22:15 | General Progress Note ---
Assessment/Plan Problem List: (1) Fever ICD Codes: R50.9 - Fever, unspecified SNOMED: 692044768 (2) COPD (chronic obstructive pulmonary disease) ICD Codes: J44.9 - Chronic obstructive pulmonary disease, unspecified SNOMED: 82983363 (3) Severe sepsis ICD Codes: A41.9 - Sepsis, unspecified organism; R65.20 - Severe sepsis without septic shock SNOMED: 00130644 (4) PEG (percutaneous endoscopic gastrostomy) adjustment/replacement/removal ICD Codes: Z43.1 - Encounter for attention to gastrostomy SNOMED: 096549136, 372085986 (5) Protein-calorie malnutrition, severe ICD Codes: E43 - Unspecified severe protein-calorie malnutrition SNOMED: 769883816 (6) Acute febrile illness ICD Codes: R50.9 - Fever, unspecified SNOMED: 312478764 (7) PNA (pneumonia) ICD Codes: J18.9 - Pneumonia, unspecified organism SNOMED: 547861300 (8) Suspected COVID-19 virus infection ICD Codes: Z20.828 - Contact with and (suspected) exposure to other viral communicable diseases SNOMED: 214616424 (9) Congestion secondary to upper respiratory illness Status: progressing Assessment/Plan: pna resp insuff afebrile malnutrition sepsis improved dc planning leukocytosis Subjective ROS Limited/Unobtainable: Yes Allergies: Coded Allergies: PNEUMOCOCCAL VACCINE (Unverified Allergy, Unknown, 10/07/18) Uncoded Allergies: PNA VACCINE (Allergy, Unknown, 09/30/19) Objective Last 24 Hour Vital Signs Date Time Temp Pulse Resp B/P (MAP) Pulse Ox O2 Delivery O2 Flow Rate FiO2 10/05/19 21:00 Nasal Cannula 2.0 10/05/19 20:23 95 Nasal Cannula 2.0 28 10/05/19 20:00 99.1 86 21 117/68 (84) 95 10/05/19 18:29 122/73 10/05/19 16:00 98.0 75 19 122/73 (89) 95 10/05/19 15:53 83 10/05/19 12:49 121/60 10/05/19 12:00 97.4 73 19 121/60 (80) 95 10/05/19 11:57 69 10/05/19 09:00 Nasal Cannula 2.0 10/05/19 08:32 81 108/64 10/05/19 08:00 72 10/05/19 08:00 97.7 81 19 108/64 (79) 96 10/05/19 07:50 96 Nasal Cannula 2.0 28 10/05/19 06:09 137/70 10/05/19 04:00 78 10/05/19 04:00 98.2 74 19 137/70 (92) 96 10/05/19 00:14 117/61 10/05/19 00:00 98.0 72 17 110/69 (83) 98 10/05/19 00:00 77 Intake and Output 10/04/19 10/05/19 19:00 07:00 Intake Total 650 ml 800 ml Output Total 1100 ml 1200 ml Balance -450 ml -400 ml Intake Free Water 200 ml Tube Feeding 650 ml 600 ml Output Urine Total 1100 ml 1200 ml # Voids 1 Laboratory Tests 10/05/19 07:15: White Blood Count 12.1H, Red Blood Count 3.03L, Hemoglobin 9.8L, Hematocrit 29.4L, Mean Corpuscular Volume 97, Mean Corpuscular Hemoglobin 32.5H, Mean Corpuscular Hemoglobin Concent 33.5, Red Cell Distribution Width 13.9, Platelet Count 175#, Mean Platelet Volume 6.2L, Neutrophils (%) (Auto) 63.4, Lymphocytes (%) (Auto) 24.8, Monocytes (%) (Auto) 7.8, Eosinophils (%) (Auto) 2.7, Basophils (%) (Auto) 1.3, Sodium Level 138, Potassium Level 5.0, Chloride Level 103, Carbon Dioxide Level 29, Anion Gap 6, Blood Urea Nitrogen 13, Creatinine 0.7, Estimat Glomerular Filtration Rate > 60, Glucose Level 89, Calcium Level 9.4 Height (Feet): 6 Height (Inches): 0.00 Weight (Pounds): 160 Respiratory/Chest: lungs clear Abdomen: soft Konrad Soares MD October 05, 2019 22:15
[2019-10-06] VITALS: BP 110/66
[2019-10-06] MEDS: Polymyxin B Sulfate 500,000 UNITS in D5W 500ml 550 ML IV SCH ×2 (01:03→13:29)
[2019-10-06 04:00] VITALS: BP 132/80
[2019-10-06] MEDS: NovoLOG Insulin Flexpen SUBQ SCH ×4 (06:19→21:00)
[2019-10-06] MEDS: Heparin 5000 units/ml inj SUBQ SCH ×3 (06:19→21:13)
[2019-10-06 08:00] VITALS: BP 121/66
[2019-10-06] MEDS: Docusate 100mg/10ml Liq GT SCH ×2 (08:53→17:46)
[2019-10-06] MEDS: Phenytoin Susp 100mg/4ml GT SCH (08:55)
[2019-10-06] MEDS: Ferrous Sulfate 300 MG/5 ML UDC GT SCH ×2 (08:56→17:47)
[2019-10-06] MEDS: levETIRAcetam 500mg/5ml Liquid GT SCH ×2 (08:57→21:11)
[2019-10-06] MEDS: Milk of Magnesia 30ml Ud GT SCH (08:57)
[2019-10-06] MEDS: Sennosides 8.6mg tab GT SCH (08:57)
[2019-10-06] MEDS: Ascorbic Acid 500mg tab GT SCH ×2 (08:58→17:45)
[2019-10-06] MEDS: Acetaminophen 650mg/20.3ml GT PRN (09:02)
--- NOTE | 2019-10-06 09:07 | General Progress Note ---
Assessment/Plan Status: progressing Assessment/Plan: 1. Hypertension. 2. Diabetes. 3. COPD. 4. History of pacemaker placement. 5. Dementia. 6. gastroparesis reglan GTF GT flushes repeat labs pending dc will fu Subjective ROS Limited/Unobtainable: No Allergies: Coded Allergies: PNEUMOCOCCAL VACCINE (Unverified Allergy, Unknown, 10/07/18) Uncoded Allergies: PNA VACCINE (Allergy, Unknown, 09/30/19) Objective Last 24 Hour Vital Signs Date Time Temp Pulse Resp B/P (MAP) Pulse Ox O2 Delivery O2 Flow Rate FiO2 10/06/19 08:57 81 121/66 10/06/19 08:00 100.9 81 20 121/66 (84) 98 10/06/19 05:45 132/80 10/06/19 04:00 99.3 85 22 132/80 (97) 98 10/06/19 04:00 85 10/06/19 00:10 117/68 10/06/19 00:00 98.7 91 23 110/66 (81) 95 10/06/19 00:00 86 10/05/19 21:00 Nasal Cannula 2.0 10/05/19 20:23 95 Nasal Cannula 2.0 28 10/05/19 20:00 99.1 86 21 117/68 (84) 95 10/05/19 20:00 83 10/05/19 18:29 122/73 10/05/19 16:00 98.0 75 19 122/73 (89) 95 10/05/19 15:53 83 10/05/19 12:49 121/60 10/05/19 12:00 97.4 73 19 121/60 (80) 95 10/05/19 11:57 69 Intake and Output 10/05/19 10/06/19 19:00 07:00 Intake Total 800 ml 750 ml Output Total 1400 ml Balance 800 ml -650 ml Intake Free Water 200 ml 200 ml Tube Feeding 600 ml 550 ml Output Urine Total 1400 ml Height (Feet): 6 Height (Inches): 0.00 Weight (Pounds): 160 General Appearance: no apparent distress EENT: normal ENT inspection Neck: supple Cardiovascular: normal rate Respiratory/Chest: decreased breath sounds Abdomen: normal bowel sounds, non tender, soft Extremities: non-tender Terence Anton MD October 06, 2019 09:07
--- NOTE | 2019-10-06 10:21 | Hematology/Onc Progress Note ---
Assessment/Plan Assessment/Plan # Leukocytosis on admission, rule out covid, given snf hx of multiple covid patinets, with pna noted on imaging --> may be due to infection --> per id --> wbc 28-->11.6-->12.1 --> smear is noted --> abx cefepime/azithro-->polymyxin # Hypercalcemia r/o malignancy, r/o myeloma, elevated on admission, may be 2/2 dehydration --> Ca 10.7, pth is wnl, spep is also wnl as is upep --> on iv fluids as per pcp --> renal eval prn --> pth on prior admission was 42 # Multiple lung nodules -- in 2017 2 cm pleural-based masslike opacity containing multiple nodular calcifications andadjacent parenchymal linear density persists in the anterolateral periphery of thelateral segment right middle lobe, unchanged. Adjacent small nodular parenchymaldensities persist, unchanged. --> pulm aware --> consider ct chest once better --> Dr. 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 Subjective Constitutional: Denies: no symptoms, chills, fever, malaise, weakness, other HEENT: Denies: no symptoms, eye pain, blurred vision, tearing, double vision, ear pain, ear discharge, nose pain, nose congestion, throat pain, throat swelling, mouth pain, mouth swelling, other Respiratory: Denies: no symptoms, cough, shortness of breath, SOB with excertion, SOB at rest, sputum, wheezing, other Gastrointestinal/Abdominal: Denies: no symptoms, abdomen distended, abdominal pain, black stools, tarry stools, blood in stool, constipated, diarrhea, difficulty swallowing, nausea, poor appetite, poor fluid intake, rectal bleeding , vomiting, other Genitourinary: Denies: no symptoms, burning, discharge, frequency, flank pain, hematuria, incontinence, pain, urgency, other Neurologic/Psychiatric: Denies: no symptoms, anxiety, depressed, emotional problems, headache, numbness, paresthesia, pre-existing deficit, seizure, tingling, tremors, weakness, other Endocrine: Denies: no symptoms, excessive sweating, flushing, intolerance to cold, intolerance to heat, increased hunger, increased thirst, increased urine, unexplained weight gain, unexplained weight loss, other Allergies: Coded Allergies: PNEUMOCOCCAL VACCINE (Unverified Allergy, Unknown, 10/07/18) Uncoded Allergies: PNA VACCINE (Allergy, Unknown, 09/30/19) Subjective 10/01 nonverbal, confused, to be npo, tube feeds on hold, no bleeding, meds reviewed 10/02 remains nonverbal, on gtube feeds, labs noted, no bleeding 10/04 labs reviewed, on polymyxin, cont sq heparin q8 hrs, nc 2l, 10/05 labs still pending, gtube feeds ongoing, no bleeding Objective Objective Current Medications Medications (Trade) Dose Ordered Sig/Nidhi Route PRN Reason Start Time Stop Time Status Last Admin Dose Admin Acetaminophen (Tylenol) 650 mg Q4H PRN GT Pain/Temp >100.5 10/01/19 03:30 10/30/19 23:29 10/06/19 09:02 Amlodipine Besylate (Norvasc) 10 mg DAILY GT 10/01/19 09:00 10/31/19 08:59 10/06/19 08:57 Ascorbic Acid (Vitamin C) 250 mg BID GT 10/01/19 09:00 10/31/19 08:59 10/06/19 08:58 Clonidine HCl (Catapres Tab) 0.1 mg EVERY 6 HOURS GT 10/01/19 00:00 12/30/19 00:00 10/06/19 05:45 Dextrose (Dextrose 50%) 25 ml Q30M PRN IV Hypoglycemia 09/30/19 22:00 12/29/19 21:59 Dextrose (Dextrose 50%) 50 ml Q30M PRN IV Hypoglycemia 09/30/19 22:00 12/29/19 21:59 Docusate Sodium (Colace) 100 mg TWICE A DAY GT 10/01/19 09:00 10/31/19 08:59 10/06/19 08:53 Donepezil HCl (Aricept) 5 mg BEDTIME GT 10/01/19 21:00 10/31/19 20:59 10/05/19 20:16 Ferrous Sulfate (Feosol) 325 mg BID GT 10/01/19 09:00 12/30/19 08:59 10/06/19 08:56 Heparin Sodium (Porcine) (Heparin 5000 units/ml) 5,000 units EVERY 8 HOURS SUBQ 10/01/19 06:00 11/15/19 05:59 10/06/19 06:19 Insulin Aspart (NovoLOG) BEFORE MEALS AND HS SUBQ 09/30/19 21:51 12/29/19 21:50 10/02/19 21:24 Levetiracetam (Keppra) 500 mg Q12HR GT 10/01/19 09:00 11/15/19 08:59 10/06/19 08:57 Magnesium Hydroxide (Mom) 30 ml DAILY GT 10/01/19 09:00 10/31/19 08:59 10/06/19 08:57 Metoclopramide HCl (Reglan) 5 mg Q6H PRN IVP Nausea & Vomiting 10/02/19 09:45 11/01/19 09:44 Multivitamins (Multivitamins) 1 tab DAILY GT 10/01/19 09:00 10/31/19 08:59 10/06/19 08:57 Phenytoin (Dilantin) 300 mg DAILY GT 10/01/19 09:00 11/15/19 08:59 10/06/19 08:55 Polymyxin B Sulfate [id number] units/Dextrose 550 ml @ 550 mls/hr Q12H IV 10/03/19 13:00 10/10/19 12:59 10/06/19 01:03 Sennosides (Senokot) 8.6 mg DAILY GT 10/01/19 09:00 10/31/19 08:59 10/06/19 08:57 Last 24 Hour Vital Signs Date Time Temp Pulse Resp B/P (MAP) Pulse Ox O2 Delivery O2 Flow Rate FiO2 10/06/19 08:57 81 121/66 10/06/19 08:00 82 10/06/19 08:00 100.9 81 20 121/66 (84) 98 10/06/19 05:45 132/80 10/06/19 04:00 99.3 85 22 132/80 (97) 98 10/06/19 04:00 85 10/06/19 00:10 117/68 10/06/19 00:00 98.7 91 23 110/66 (81) 95 10/06/19 00:00 86 10/05/19 21:00 Nasal Cannula 2.0 10/05/19 20:23 95 Nasal Cannula 2.0 28 10/05/19 20:00 99.1 86 21 117/68 (84) 95 10/05/19 20:00 83 10/05/19 18:29 122/73 10/05/19 16:00 98.0 75 19 122/73 (89) 95 10/05/19 15:53 83 10/05/19 12:49 121/60 10/05/19 12:00 97.4 73 19 121/60 (80) 95 10/05/19 11:57 69 10/05/19 09:00 Nasal Cannula 2.0 10/05/19 08:32 81 108/64 10/05/19 08:00 72 10/05/19 08:00 97.7 81 19 108/64 (79) 96 10/05/19 07:50 96 Nasal Cannula 2.0 28 10/05/19 06:09 137/70 10/05/19 04:00 78 10/05/19 04:00 98.2 74 19 137/70 (92) 96 10/05/19 00:14 117/61 10/05/19 00:00 98.0 72 17 110/69 (83) 98 10/05/19 00:00 77 10/04/19 21:00 Nasal Cannula 2.0 10/04/19 20:00 98.2 74 16 109/65 (80) 99 10/04/19 20:00 77 10/04/19 17:40 131/59 10/04/19 16:00 98.2 80 20 131/59 (83) 98 10/04/19 16:00 79 10/04/19 12:17 89 10/04/19 12:04 130/72 10/04/19 12:00 98.1 84 18 130/72 (91) 96 Intake and Output 10/05/19 10/06/19 19:00 07:00 Intake Total 800 ml 750 ml Output Total 1400 ml Balance 800 ml -650 ml Intake Free Water 200 ml 200 ml Tube Feeding 600 ml 550 ml Output Urine Total 1400 ml Labs Test 10/04/19 07:12 10/05/19 07:15 White Blood Count 10.9 K/UL (4.8-10.8) 12.1 K/UL (4.8-10.8) Red Blood Count 3.06 M/UL (4.70-6.10) 3.03 M/UL (4.70-6.10) Hemoglobin 9.9 G/DL (14.2-18.0) 9.8 G/DL (14.2-18.0) Hematocrit 29.6 % (42.0-52.0) 29.4 % (42.0-52.0) Mean Corpuscular Volume 97 FL (80-99) 97 FL (80-99) Mean Corpuscular Hemoglobin 32.4 PG (27.0-31.0) 32.5 PG (27.0-31.0) Mean Corpuscular Hemoglobin Concent 33.4 G/DL (32.0-36.0) 33.5 G/DL (32.0-36.0) Red Cell Distribution Width 13.6 % (11.6-14.8) 13.9 % (11.6-14.8) Platelet Count 375 K/UL (150-450) 175 K/UL (150-450) Mean Platelet Volume 5.4 FL (6.5-10.1) 6.2 FL (6.5-10.1) Neutrophils (%) (Auto) 61.8 % (45.0-75.0) 63.4 % (45.0-75.0) Lymphocytes (%) (Auto) 29.7 % (20.0-45.0) 24.8 % (20.0-45.0) Monocytes (%) (Auto) 5.4 % (1.0-10.0) 7.8 % (1.0-10.0) Eosinophils (%) (Auto) 1.9 % (0.0-3.0) 2.7 % (0.0-3.0) Basophils (%) (Auto) 1.1 % (0.0-2.0) 1.3 % (0.0-2.0) Sodium Level 142 MMOL/L (136-145) 138 MMOL/L (136-145) Potassium Level 3.7 MMOL/L (3.5-5.1) 5.0 MMOL/L (3.5-5.1) Chloride Level 103 MMOL/L (98-107) 103 MMOL/L (98-107) Carbon Dioxide Level 32 MMOL/L (21-32) 29 MMOL/L (21-32) Anion Gap 7 mmol/L (5-15) 6 mmol/L (5-15) Blood Urea Nitrogen 12 mg/dL (7-18) 13 mg/dL (7-18) Creatinine 0.7 MG/DL (0.55-1.30) 0.7 MG/DL (0.55-1.30) Estimat Glomerular Filtration Rate > 60 mL/min (>60) > 60 mL/min (>60) Glucose Level 98 MG/DL (74-106) 89 MG/DL (74-106) Calcium Level 9.8 MG/DL (8.5-10.1) 9.4 MG/DL (8.5-10.1) Height (Feet): 6 Height (Inches): 0.00 Weight (Pounds): 160 Objective vitals: noted gen: nonverbal pulm: ctab, some crackles left side, nc+ heent; nc, at, eomi Cv: rrr, no mgr abd: soft, nt, nd +gtube ext: no cce Ignacio Ponce MD October 06, 2019 10:21
--- NOTE | 2019-10-06 11:37 | Pulmonology Progress Note ---
Assessment/Plan Assessment/Plan IMPRESSION: 1. Right lung pneumonia. 2. skilled nursing resident. 3. Recent hospitalization at acute hospital. 4. Diabetes mellitus. 5. Hypertension. 6. COPD. 7. Pacemaker. DISCUSSION: Continue broad-spectrum antibiotics. Continue oxygen, pulmonary hygiene. I will follow carefully. COVID 19 pcr x 1 negative Truman Bradford M.D. Subjective ROS Limited/Unobtainable: No Interval Events: None new Constitutional: Denies: fever HEENT: Repors: no symptoms Respiratory: Reports: dry cough, shortness of breath Cardiovascular: Reports: no symptoms Gastrointestinal/Abdominal: Reports: no symptoms Allergies: Coded Allergies: PNEUMOCOCCAL VACCINE (Unverified Allergy, Unknown, 10/07/18) Uncoded Allergies: PNA VACCINE (Allergy, Unknown, 09/30/19) All Systems: reviewed and negative except above Objective Last 24 Hour Vital Signs Date Time Temp Pulse Resp B/P (MAP) Pulse Ox O2 Delivery O2 Flow Rate FiO2 10/06/19 09:00 Nasal Cannula 2.0 10/06/19 08:57 81 121/66 10/06/19 08:00 82 10/06/19 08:00 100.9 81 20 121/66 (84) 98 10/06/19 05:45 132/80 10/06/19 04:00 99.3 85 22 132/80 (97) 98 10/06/19 04:00 85 10/06/19 00:10 117/68 10/06/19 00:00 98.7 91 23 110/66 (81) 95 10/06/19 00:00 86 10/05/19 21:00 Nasal Cannula 2.0 10/05/19 20:23 95 Nasal Cannula 2.0 28 10/05/19 20:00 99.1 86 21 117/68 (84) 95 10/05/19 20:00 83 10/05/19 18:29 122/73 10/05/19 16:00 98.0 75 19 122/73 (89) 95 10/05/19 15:53 83 10/05/19 12:49 121/60 5/3/20 12:00 97.4 73 19 121/60 (80) 95 10/05/19 11:57 69 Intake and Output 10/05/19 10/06/19 19:00 07:00 Intake Total 800 ml 750 ml Output Total 1400 ml Balance 800 ml -650 ml Intake Free Water 200 ml 200 ml Tube Feeding 600 ml 550 ml Output Urine Total 1400 ml General Appearance: no acute distress HEENT: mucous membranes moist Respiratory/Chest: chest wall non-tender, decreased breath sounds Cardiovascular: normal peripheral pulses, normal rate Abdomen: soft, non tender, other - GT feeding Extremities: no edema Neurologic/Psychiatric: aphasia Current Medications Medications (Trade) Dose Ordered Sig/Nidhi Route PRN Reason Start Time Stop Time Status Last Admin Dose Admin Acetaminophen (Tylenol) 650 mg Q4H PRN GT Pain/Temp >100.5 10/01/19 03:30 10/30/19 23:29 10/06/19 09:02 Amlodipine Besylate (Norvasc) 10 mg DAILY GT 10/01/19 09:00 10/31/19 08:59 10/06/19 08:57 Ascorbic Acid (Vitamin C) 250 mg BID GT 10/01/19 09:00 10/31/19 08:59 10/06/19 08:58 Clonidine HCl (Catapres Tab) 0.1 mg EVERY 6 HOURS GT 10/01/19 00:00 12/30/19 00:00 10/06/19 05:45 Dextrose (Dextrose 50%) 25 ml Q30M PRN IV Hypoglycemia 09/30/19 22:00 12/29/19 21:59 Dextrose (Dextrose 50%) 50 ml Q30M PRN IV Hypoglycemia 09/30/19 22:00 12/29/19 21:59 Docusate Sodium (Colace) 100 mg TWICE A DAY GT 10/01/19 09:00 10/31/19 08:59 10/06/19 08:53 Donepezil HCl (Aricept) 5 mg BEDTIME GT 10/01/19 21:00 10/31/19 20:59 10/05/19 20:16 Ferrous Sulfate (Feosol) 325 mg BID GT 10/01/19 09:00 12/30/19 08:59 10/06/19 08:56 Heparin Sodium (Porcine) (Heparin 5000 units/ml) 5,000 units EVERY 8 HOURS SUBQ 10/01/19 06:00 11/15/19 05:59 10/06/19 06:19 Insulin Aspart (NovoLOG) BEFORE MEALS AND HS SUBQ 09/30/19 21:51 12/29/19 21:50 10/02/19 21:24 Levetiracetam (Keppra) 500 mg Q12HR GT 10/01/19 09:00 11/15/19 08:59 10/06/19 08:57 Magnesium Hydroxide (Mom) 30 ml DAILY GT 10/01/19 09:00 10/31/19 08:59 10/06/19 08:57 Metoclopramide HCl (Reglan) 5 mg Q6H PRN IVP Nausea & Vomiting 10/02/19 09:45 11/01/19 09:44 Multivitamins (Multivitamins) 1 tab DAILY GT 10/01/19 09:00 10/31/19 08:59 10/06/19 08:57 Phenytoin (Dilantin) 300 mg DAILY GT 10/01/19 09:00 11/15/19 08:59 10/06/19 08:55 Polymyxin B Sulfate 408380 units/Dextrose 550 ml @ 550 mls/hr Q12H IV 10/03/19 13:00 10/10/19 12:59 10/06/19 01:03 Sennosides (Senokot) 8.6 mg DAILY GT 10/01/19 09:00 10/31/19 08:59 10/06/19 08:57 Truman Bradford MD October 06, 2019 11:37
[2019-10-06 12:00] VITALS: BP 102/64
--- NOTE | 2019-10-06 13:09 | Infectious Diseases Prog Note ---
Assessment/Plan Assessment/Plan IMPRESSION: 1. MDR Acinetobacter sepsis 2. Pneumonia. Negative COVID19 X 1 3. Unstageable pressure ulcer that doesn't seem to be infected . 4. Hypernatremia. 5. Anemia. 6. Advanced dementia. 7. History of diverticulosis. 8. Gastrostomy status. RECOMMENDATION: continue Polymyxin B We will follow up cultures will f/u COVID-19 test Subjective ROS Limited/Unobtainable: Yes Constitutional: Reports: fever, other - Ua=200.9 Allergies: Coded Allergies: PNEUMOCOCCAL VACCINE (Unverified Allergy, Unknown, 10/07/18) Uncoded Allergies: PNA VACCINE (Allergy, Unknown, 09/30/19) Objective Vital Signs Last 24 Hour Vital Signs Date Time Temp Pulse Resp B/P (MAP) Pulse Ox O2 Delivery O2 Flow Rate FiO2 10/06/19 12:00 99.0 90 20 102/64 (77) 95 10/06/19 12:00 82 10/06/19 12:00 102/64 10/06/19 09:32 99.0 10/06/19 09:00 Nasal Cannula 2.0 10/06/19 08:57 81 121/66 10/06/19 08:00 82 10/06/19 08:00 100.9 81 20 121/66 (84) 98 10/06/19 05:45 132/80 10/06/19 04:00 99.3 85 22 132/80 (97) 98 10/06/19 04:00 85 10/06/19 00:10 117/68 10/06/19 00:00 98.7 91 23 110/66 (81) 95 10/06/19 00:00 86 10/05/19 21:00 Nasal Cannula 2.0 10/05/19 20:23 95 Nasal Cannula 2.0 28 10/05/19 20:00 99.1 86 21 117/68 (84) 95 10/05/19 20:00 83 10/05/19 18:29 122/73 10/05/19 16:00 98.0 75 19 122/73 (89) 95 10/05/19 15:53 83 Height (Feet): 6 Height (Inches): 0.00 Weight (Pounds): 160 General Appearance: no acute distress HEENT: mucous membranes moist Cardiovascular: normal rate Abdomen: soft, non tender, other - GT feeding Neurologic/Psychiatric: aphasia Current Medications Medications (Trade) Dose Ordered Sig/Nidhi Route PRN Reason Start Time Stop Time Status Last Admin Dose Admin Acetaminophen (Tylenol) 650 mg Q4H PRN GT Pain/Temp >100.5 10/01/19 03:30 10/30/19 23:29 10/06/19 09:02 Amlodipine Besylate (Norvasc) 10 mg DAILY GT 10/01/19 09:00 10/31/19 08:59 10/06/19 08:57 Ascorbic Acid (Vitamin C) 250 mg BID GT 10/01/19 09:00 10/31/19 08:59 10/06/19 08:58 Clonidine HCl (Catapres Tab) 0.1 mg EVERY 6 HOURS GT 10/01/19 00:00 12/30/19 00:00 10/06/19 05:45 Dextrose (Dextrose 50%) 25 ml Q30M PRN IV Hypoglycemia 09/30/19 22:00 12/29/19 21:59 Dextrose (Dextrose 50%) 50 ml Q30M PRN IV Hypoglycemia 09/30/19 22:00 12/29/19 21:59 Docusate Sodium (Colace) 100 mg TWICE A DAY GT 10/01/19 09:00 10/31/19 08:59 10/06/19 08:53 Donepezil HCl (Aricept) 5 mg BEDTIME GT 10/01/19 21:00 10/31/19 20:59 10/05/19 20:16 Ferrous Sulfate (Feosol) 325 mg BID GT 10/01/19 09:00 12/30/19 08:59 10/06/19 08:56 Heparin Sodium (Porcine) (Heparin 5000 units/ml) 5,000 units EVERY 8 HOURS SUBQ 10/01/19 06:00 11/15/19 05:59 10/06/19 06:19 Insulin Aspart (NovoLOG) BEFORE MEALS AND HS SUBQ 09/30/19 21:51 12/29/19 21:50 10/02/19 21:24 Levetiracetam (Keppra) 500 mg Q12HR GT 10/01/19 09:00 11/15/19 08:59 10/06/19 08:57 Magnesium Hydroxide (Mom) 30 ml DAILY GT 10/01/19 09:00 10/31/19 08:59 10/06/19 08:57 Metoclopramide HCl (Reglan) 5 mg Q6H PRN IVP Nausea & Vomiting 10/02/19 09:45 11/01/19 09:44 Multivitamins (Multivitamins) 1 tab DAILY GT 10/01/19 09:00 10/31/19 08:59 10/06/19 08:57 Phenytoin (Dilantin) 300 mg DAILY GT 10/01/19 09:00 11/15/19 08:59 10/06/19 08:55 Polymyxin B Sulfate [id number] units/Dextrose 550 ml @ 550 mls/hr Q12H IV 10/03/19 13:00 10/10/19 12:59 10/06/19 01:03 Sennosides (Senokot) 8.6 mg DAILY GT 10/01/19 09:00 10/31/19 08:59 10/06/19 08:57 Curtis Farah MD October 06, 2019 13:08
--- NOTE | 2019-10-06 13:21 | Cardiac Electrophysiology PN ---
Assessment/Plan Assessment/Plan 1. Sinus tachycardia due to pneumonia and dehydration as Sodium was 150 [place] white count [place] [address]. Improved on Abx and iv fluids that was DCed 2. Hypertension on amlodipine 10 mg daily. 3. Shortness of breath, fever, and high white count. On IV antibiotic and being ruled out for COVID and isolation( first Covid is negative. Second is pending). 4. History of seizures, on Keppra. 5. Dysphagia, s/P PEG placement. 6. Hypernatremia and dehydration. Resolved DW RN Subjective Subjective In isolation for Covid (negative x1. Swabbed again ,results pending). In SR Objective Last 24 Hour Vital Signs Date Time Temp Pulse Resp B/P (MAP) Pulse Ox O2 Delivery O2 Flow Rate FiO2 10/06/19 12:00 99.0 90 20 102/64 (77) 95 10/06/19 12:00 82 10/06/19 12:00 102/64 10/06/19 09:32 99.0 10/06/19 09:00 Nasal Cannula 2.0 10/06/19 08:57 81 121/66 10/06/19 08:00 82 10/06/19 08:00 100.9 81 20 121/66 (84) 98 10/06/19 05:45 132/80 10/06/19 04:00 99.3 85 22 132/80 (97) 98 10/06/19 04:00 85 10/06/19 00:10 117/68 10/06/19 00:00 98.7 91 23 110/66 (81) 95 10/06/19 00:00 86 10/05/19 21:00 Nasal Cannula 2.0 10/05/19 20:23 95 Nasal Cannula 2.0 28 10/05/19 20:00 99.1 86 21 117/68 (84) 95 10/05/19 20:00 83 10/05/19 18:29 122/73 10/05/19 16:00 98.0 75 19 122/73 (89) 95 10/05/19 15:53 83 Intake and Output 10/05/19 10/06/19 19:00 07:00 Intake Total 800 ml 750 ml Output Total 1400 ml Balance 800 ml -650 ml Intake Free Water 200 ml 200 ml Tube Feeding 600 ml 550 ml Output Urine Total 1400 ml Objective HEAD AND NECK: No JVD. LUNGS: Coarse rhonchi. CARDIOVASCULAR: Regular S1 and S2 with no gallop. ABDOMEN: Status post G-tube. EXTREMITIES: No pitting edema. Sajan Campbell MD October 06, 2019 13:21
--- NOTE | 2019-10-06 14:24 | Surgery Progress Note ---
Surgery Progress Note Subjective Additional Comments t max 100.9 labs pending comfortable appearing no n/v Objective Last 24 Hour Vital Signs Date Time Temp Pulse Resp B/P (MAP) Pulse Ox O2 Delivery O2 Flow Rate FiO2 10/06/19 12:00 99.0 90 20 102/64 (77) 95 10/06/19 12:00 82 10/06/19 12:00 102/64 10/06/19 09:32 99.0 10/06/19 09:00 Nasal Cannula 2.0 10/06/19 08:57 81 121/66 10/06/19 08:00 82 10/06/19 08:00 100.9 81 20 121/66 (84) 98 10/06/19 05:45 132/80 10/06/19 04:00 99.3 85 22 132/80 (97) 98 10/06/19 04:00 85 10/06/19 00:10 117/68 10/06/19 00:00 98.7 91 23 110/66 (81) 95 10/06/19 00:00 86 10/05/19 21:00 Nasal Cannula 2.0 10/05/19 20:23 95 Nasal Cannula 2.0 28 10/05/19 20:00 99.1 86 21 117/68 (84) 95 10/05/19 20:00 83 10/05/19 18:29 122/73 10/05/19 16:00 98.0 75 19 122/73 (89) 95 10/05/19 15:53 83 I&O Intake and Output 10/05/19 10/06/19 19:00 07:00 Intake Total 800 ml 750 ml Output Total 1400 ml Balance 800 ml -650 ml Intake Free Water 200 ml 200 ml Tube Feeding 600 ml 550 ml Output Urine Total 1400 ml Dressing: saturated Wound: other Drains: other Cardiovascular: RSR Respiratory: decreased breath sounds Abdomen: soft, non-tender, present bowel sounds Extremities: no cyanosis Plan Problems: (1) Decubitus skin ulcer Assessment & Plan: Pt presented on admission with multiple pressure injuries. Resolving pressure injury cleft of R ear. [place] epithelial at base of wound with marginal erythema. Non-blanching erythema cleft of L ear. Pt is receiving o2 via nasal cannula, and oxygen tubing padded with gauze to minimize pressure and friction to both ears. Unstageable Sacral Pressure Injury(L)9.4cm x (W)7.8cm. Base of wound is 75% necrotic and and soft, 20% surrounding slough,Marginal erythema and macerated borders. Mild odor noted. Small amt seropurulent exudate.Periwound,skin tone is darker without elevation in skin temp, fluctuance or induration.small area of hyperpigmentation noted to L gluteal cheek. L Heel extending into plantar aspect is boggy with non-blanching erythema. Non-blanching erythema R heel without induration or fluctuance. Xerosis skin both feet. Tx.Plan: Cleanse Sacral wound with Saline. Apply Therahoney. Apply Moisture Barrier Paste periwound. Cover with Optifoam Drsg. Change every 3 days and prn. Apply Moisture Barrier paste to Perineum, R and L buttocks with each incontinence care. Apply [place] Skin Barrier to both heels. Cover each heel with Optifoam drsg. Change every 7 days and prn. Apply [place] Skin Barrier to clefts of both R and L ears Daily. Pad Oxygen tubing with gauze around Ears. Keep Oxygen tubing loose around Ears. Reposition at least every 2hours or as tolerated. Off-load heels with pillow. APM/CHRISTOPHER Mattress overlay. (2) Leukocytosis Assessment & Plan: leukocytosis 28k on admission trending down resolving wbc on abx wounds unlikely etiology pna ua noted cont abx as per id wbc 12k trending up again imaging reviewed abx changed per Id will follow with recs thank you (3) Lung mass (4) Protein-calorie malnutrition, severe Assessment & Plan: There is a gastrostomy tube in place. Previously demonstrated nasogastric tube is no longer evident. Bowel gas pattern is unremarkable. No masses or unusual calcifications. There is evidence of a Macedo catheter. There is a right hip prosthesis. There are degenerative changes of the lumbar spine nutritional optimization tube feeds bmi noted alb low DAILY ESTIMATED NEEDS: Needs based on Pulmonary, wounds; 72.5kg 25-30 kcals/kg 4884-0373 total kcals 1.25-1.5 g protein/kg 90-108 g total protein 25-30 mL/kg 8102-3440 total fluid mLs NUTRITION DIAGNOSIS: 1. Increased pro needs r/t wound healing as evidenced by pt adm w/ multiple wounds including unstageable sacral wound, refer to WC eval. 2. Swallowing difficulty r/t dysphagia as evidenced by GT dependent. CURRENT TF:Glucerna 1.5 @ 50ml/hr x 22 hrs (on Dilantin QD) ENTERAL NUTRITION RECOMMENDATIONS: Glucerna 1.5 @55ml/hr x22 hrs (1 hr held before and after Dilantin med) to provide 1210ml, 1815kcal, 100g prot, 918ml free water - Increase goal rate to 55ml/hr to meet 100% est kcal/prot needs - Hold 1 hr before and after Dilantin med - HOB over 30 degrees ADDITIONAL RECOMMENDATIONS: * Wound healing: continue Vit C add KESHIA in 4oz H2O BID via GT * Calibrated bedscale wt for accurate CBW * Check lytes daily w/ TF, replete as needed * Monitor TF tolerance/residuals * DC D5 once TF @ goal (5) Suspected COVID-19 virus infection Assessment & Plan: covid negative Right basilar consolidation and atelectasis, could indicate pneumonia. Minimal left basilar atelectasis Gabino Little October 06, 2019 14:24
[2019-10-06 15:37] VITALS: BP 142/76
--- NOTE | 2019-10-06 16:18 | Diagnostic Imaging Report ---
Indication: Shortness of breath Technique: One view of the chest Comparison: 09/30/2019 Findings: Less optimal inspiration currently. There is some atelectasis at both lung bases. There is mild interstitial congestion and hazy airspace opacity bilaterally. This appears to have increased somewhat. An some consolidation at the right lung base.. The heart size is upper limits normal. The aorta is tortuous. Impression: Apparently increased hazy airspace opacity on background of generalized mild interstitial disease. May be an artifact of under distention but could reflect worsening bilateral infiltrates. Stable bibasilar atelectasis and right basilar consolidation
--- NOTE | 2019-10-06 17:17 | General Progress Note ---
Assessment/Plan Problem List: (1) Fever ICD Codes: R50.9 - Fever, unspecified SNOMED: 276779489 (2) COPD (chronic obstructive pulmonary disease) ICD Codes: J44.9 - Chronic obstructive pulmonary disease, unspecified SNOMED: 32205089 (3) Severe sepsis ICD Codes: A41.9 - Sepsis, unspecified organism; R65.20 - Severe sepsis without septic shock SNOMED: 66327650 (4) PEG (percutaneous endoscopic gastrostomy) adjustment/replacement/removal ICD Codes: Z43.1 - Encounter for attention to gastrostomy SNOMED: 233975081, 524533325 (5) Protein-calorie malnutrition, severe ICD Codes: E43 - Unspecified severe protein-calorie malnutrition SNOMED: 469778661 (6) Acute febrile illness ICD Codes: R50.9 - Fever, unspecified SNOMED: 699760388 (7) PNA (pneumonia) ICD Codes: J18.9 - Pneumonia, unspecified organism SNOMED: 458263127 (8) Suspected COVID-19 virus infection ICD Codes: Z20.828 - Contact with and (suspected) exposure to other viral communicable diseases SNOMED: 495371626 (9) Congestion secondary to upper respiratory illness Status: progressing Assessment/Plan: febrile this am abx per id malnutrition abx per id sepsis improved dc planning leukocytosis Subjective ROS Limited/Unobtainable: Yes Allergies: Coded Allergies: PNEUMOCOCCAL VACCINE (Unverified Allergy, Unknown, 10/07/18) Uncoded Allergies: PNA VACCINE (Allergy, Unknown, 09/30/19) Objective Last 24 Hour Vital Signs Date Time Temp Pulse Resp B/P (MAP) Pulse Ox O2 Delivery O2 Flow Rate FiO2 10/06/19 15:37 97.8 90 20 142/76 (98) 94 10/06/19 12:00 99.0 90 20 102/64 (77) 95 10/06/19 12:00 82 10/06/19 12:00 102/64 10/06/19 09:32 99.0 10/06/19 09:00 Nasal Cannula 2.0 10/06/19 08:57 81 121/66 10/06/19 08:00 82 10/06/19 08:00 100.9 81 20 121/66 (84) 98 10/06/19 05:45 132/80 10/06/19 04:00 99.3 85 22 132/80 (97) 98 10/06/19 04:00 85 10/06/19 00:10 117/68 10/06/19 00:00 98.7 91 23 110/66 (81) 95 10/06/19 00:00 86 10/05/19 21:00 Nasal Cannula 2.0 10/05/19 20:23 95 Nasal Cannula 2.0 28 10/05/19 20:00 99.1 86 21 117/68 (84) 95 10/05/19 20:00 83 10/05/19 18:29 122/73 Intake and Output 10/05/19 10/06/19 19:00 07:00 Intake Total 800 ml 750 ml Output Total 1400 ml Balance 800 ml -650 ml Intake Free Water 200 ml 200 ml Tube Feeding 600 ml 550 ml Output Urine Total 1400 ml Height (Feet): 6 Height (Inches): 0.00 Weight (Pounds): 160 Konrad Soares MD October 06, 2019 17:17
[2019-10-06 20:00] VITALS: BP 99/57
[2019-10-06] MEDS: Donepezil 5mg Tab GT SCH (21:11)
[2019-10-07] VITALS: BP 102/60
[2019-10-07] MEDS: Polymyxin B Sulfate 500,000 UNITS in D5W 500ml 550 ML IV SCH ×2 (00:10→14:27)
[2019-10-07 04:00] VITALS: BP 100/63
[2019-10-07] MEDS: Heparin 5000 units/ml inj SUBQ SCH ×3 (06:01→21:36)
[2019-10-07] MEDS: NovoLOG Insulin Flexpen SUBQ SCH ×4 (06:04→21:00)
[2019-10-07 06:46] LABS: HEMATOCRIT 32.6 % (42.0-52.0); HEMOGLOBIN 10.9 G/DL (14.2-18.0); MEAN CORPUSCULAR VOLUME 98 FL (80-99); PLATELET COUNT 425 K/UL (150-450); RED BLOOD COUNT 3.34 M/UL (4.70-6.10); RED CELL DISTRIBUTION WIDTH 13.9 % (11.6-14.8)
--- NOTE | 2019-10-07 06:50 | Hematology/Onc Progress Note ---
Assessment/Plan Assessment/Plan # Leukocytosis on admission, rule out covid, given snf hx of multiple covid patinets, with pna noted on imaging --> may be due to infection --> per id --> wbc 28-->11.6-->12.1 --> smear is noted --> abx cefepime/azithro-->polymyxin # Hypercalcemia r/o malignancy, r/o myeloma, elevated on admission, may be 2/2 dehydration --> Ca 10.7, pth is wnl, spep is also wnl as is upep --> on iv fluids as per pcp --> renal eval prn --> pth on prior admission was 42 # Multiple lung nodules -- in 2017 2 cm pleural-based masslike opacity containing multiple nodular calcifications andadjacent parenchymal linear density persists in the anterolateral periphery of thelateral segment right middle lobe, unchanged. Adjacent small nodular parenchymaldensities persist, unchanged. --> pulm aware --> consider ct chest once better --> Dr. 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 Subjective Cardiovascular: Denies: no symptoms, chest pain, edema, irregular heart rate, lightheadedness, palpitations, syncope, other Respiratory: Denies: no symptoms, cough, shortness of breath, SOB with excertion, SOB at rest, sputum, wheezing, other Gastrointestinal/Abdominal: Denies: no symptoms, abdomen distended, abdominal pain, black stools, tarry stools, blood in stool, constipated, diarrhea, difficulty swallowing, nausea, poor appetite, poor fluid intake, rectal bleeding , vomiting, other Genitourinary: Denies: no symptoms, burning, discharge, frequency, flank pain, hematuria, incontinence, pain, urgency, other Neurologic/Psychiatric: Denies: no symptoms, anxiety, depressed, emotional problems, headache, numbness, paresthesia, pre-existing deficit, seizure, tingling, tremors, weakness, other Endocrine: Denies: no symptoms, excessive sweating, flushing, intolerance to cold, intolerance to heat, increased hunger, increased thirst, increased urine, unexplained weight gain, unexplained weight loss, other Hematologic/Lymphatic: Denies: no symptoms, anemia, easy bleeding, easy bruising, adenopathy, other Allergies: Coded Allergies: PNEUMOCOCCAL VACCINE (Unverified Allergy, Unknown, 10/07/18) Uncoded Allergies: PNA VACCINE (Allergy, Unknown, 09/30/19) Subjective 10/01 nonverbal, confused, to be npo, tube feeds on hold, no bleeding, meds reviewed 10/02 remains nonverbal, on gtube feeds, labs noted, no bleeding 10/04 labs reviewed, on polymyxin, cont sq heparin q8 hrs, nc 2l, 10/05 labs still pending, gtube feeds ongoing, no bleeding 10/06 remains confused, with glucerna running, labs reviewed, 99.7f overnight Objective Objective Current Medications Medications (Trade) Dose Ordered Sig/Nidhi Route PRN Reason Start Time Stop Time Status Last Admin Dose Admin Acetaminophen (Tylenol) 650 mg Q4H PRN GT Pain/Temp >100.5 10/01/19 03:30 10/30/19 23:29 10/06/19 09:02 Amlodipine Besylate (Norvasc) 10 mg DAILY GT 10/01/19 09:00 10/31/19 08:59 10/06/19 08:57 Ascorbic Acid (Vitamin C) 250 mg BID GT 10/01/19 09:00 10/31/19 08:59 10/06/19 17:45 Clonidine HCl (Catapres Tab) 0.1 mg EVERY 6 HOURS GT 10/01/19 00:00 12/30/19 00:00 10/06/19 17:46 Dextrose (Dextrose 50%) 25 ml Q30M PRN IV Hypoglycemia 09/30/19 22:00 12/29/19 21:59 Dextrose (Dextrose 50%) 50 ml Q30M PRN IV Hypoglycemia 09/30/19 22:00 12/29/19 21:59 Docusate Sodium (Colace) 100 mg TWICE A DAY GT 10/01/19 09:00 10/31/19 08:59 10/06/19 17:46 Donepezil HCl (Aricept) 5 mg BEDTIME GT 10/01/19 21:00 10/31/19 20:59 10/06/19 21:11 Ferrous Sulfate (Feosol) 325 mg BID GT 10/01/19 09:00 12/30/19 08:59 10/06/19 17:47 Heparin Sodium (Porcine) (Heparin 5000 units/ml) 5,000 units EVERY 8 HOURS SUBQ 10/01/19 06:00 11/15/19 05:59 10/07/19 06:01 Insulin Aspart (NovoLOG) BEFORE MEALS AND HS SUBQ 09/30/19 21:51 12/29/19 21:50 10/02/19 21:24 Levetiracetam (Keppra) 500 mg Q12HR GT 10/01/19 09:00 11/15/19 08:59 10/06/19 21:11 Magnesium Hydroxide (Mom) 30 ml DAILY GT 10/01/19 09:00 10/31/19 08:59 10/06/19 08:57 Metoclopramide HCl (Reglan) 5 mg Q6H PRN IVP Nausea & Vomiting 10/02/19 09:45 11/01/19 09:44 Multivitamins (Multivitamins) 1 tab DAILY GT 10/01/19 09:00 10/31/19 08:59 10/06/19 08:57 Phenytoin (Dilantin) 300 mg DAILY GT 10/01/19 09:00 11/15/19 08:59 10/06/19 08:55 Polymyxin B Sulfate [id number] units/Dextrose 550 ml @ 550 mls/hr Q12H IV 10/03/19 13:00 10/10/19 12:59 10/07/19 00:10 Sennosides (Senokot) 8.6 mg DAILY GT 10/01/19 09:00 10/31/19 08:59 10/06/19 08:57 Last 24 Hour Vital Signs Date Time Temp Pulse Resp B/P (MAP) Pulse Ox O2 Delivery O2 Flow Rate FiO2 10/07/19 05:51 100/63 10/07/19 04:00 99.7 98 17 100/63 (75) 100 10/07/19 04:00 95 10/07/19 00:00 88 10/07/19 00:00 98.0 92 19 102/60 (74) 94 10/07/19 00:00 109/60 10/06/19 21:00 Nasal Cannula 2.0 10/06/19 20:29 96 Nasal Cannula 2.0 28 10/06/19 20:00 99.0 93 17 99/57 (71) 99 10/06/19 20:00 82 10/06/19 17:46 142/76 10/06/19 16:00 82 10/06/19 15:37 97.8 90 20 142/76 (98) 94 10/06/19 12:00 99.0 90 20 102/64 (77) 95 10/06/19 12:00 82 10/06/19 12:00 102/64 10/06/19 09:32 99.0 10/06/19 09:00 Nasal Cannula 2.0 10/06/19 08:57 81 121/66 10/06/19 08:00 82 10/06/19 08:00 100.9 81 20 121/66 (84) 98 10/06/19 05:45 132/80 10/06/19 04:00 99.3 85 22 132/80 (97) 98 10/06/19 04:00 85 10/06/19 00:10 117/68 10/06/19 00:00 98.7 91 23 110/66 (81) 95 10/06/19 00:00 86 10/05/19 21:00 Nasal Cannula 2.0 10/05/19 20:23 95 Nasal Cannula 2.0 28 10/05/19 20:00 99.1 86 21 117/68 (84) 95 10/05/19 20:00 83 10/05/19 18:29 122/73 10/05/19 16:00 98.0 75 19 122/73 (89) 95 10/05/19 15:53 83 10/05/19 12:49 121/60 10/05/19 12:00 97.4 73 19 121/60 (80) 95 10/05/19 11:57 69 10/05/19 09:00 Nasal Cannula 2.0 10/05/19 08:32 81 108/64 10/05/19 08:00 72 10/05/19 08:00 97.7 81 19 108/64 (79) 96 10/05/19 07:50 96 Nasal Cannula 2.0 28 Intake and Output 10/06/19 10/07/19 19:00 07:00 Output Total 700 ml 1400 ml Balance -700 ml -1400 ml Output Urine Total 700 ml 1400 ml # Bowel Movements 1 Labs Test 10/04/19 07:12 10/05/19 07:15 10/07/19 05:50 White Blood Count 10.9 K/UL (4.8-10.8) 12.1 K/UL (4.8-10.8) Red Blood Count 3.06 M/UL (4.70-6.10) 3.03 M/UL (4.70-6.10) Hemoglobin 9.9 G/DL (14.2-18.0) 9.8 G/DL (14.2-18.0) Hematocrit 29.6 % (42.0-52.0) 29.4 % (42.0-52.0) Mean Corpuscular Volume 97 FL (80-99) 97 FL (80-99) Mean Corpuscular Hemoglobin 32.4 PG (27.0-31.0) 32.5 PG (27.0-31.0) Mean Corpuscular Hemoglobin Concent 33.4 G/DL (32.0-36.0) 33.5 G/DL (32.0-36.0) Red Cell Distribution Width 13.6 % (11.6-14.8) 13.9 % (11.6-14.8) Platelet Count 375 K/UL (150-450) 175 K/UL (150-450) Mean Platelet Volume 5.4 FL (6.5-10.1) 6.2 FL (6.5-10.1) Neutrophils (%) (Auto) 61.8 % (45.0-75.0) 63.4 % (45.0-75.0) Lymphocytes (%) (Auto) 29.7 % (20.0-45.0) 24.8 % (20.0-45.0) Monocytes (%) (Auto) 5.4 % (1.0-10.0) 7.8 % (1.0-10.0) Eosinophils (%) (Auto) 1.9 % (0.0-3.0) 2.7 % (0.0-3.0) Basophils (%) (Auto) 1.1 % (0.0-2.0) 1.3 % (0.0-2.0) Sodium Level 142 MMOL/L (136-145) 138 MMOL/L (136-145) Potassium Level 3.7 MMOL/L (3.5-5.1) 5.0 MMOL/L (3.5-5.1) Chloride Level 103 MMOL/L (98-107) 103 MMOL/L (98-107) Carbon Dioxide Level 32 MMOL/L (21-32) 29 MMOL/L (21-32) Anion Gap 7 mmol/L (5-15) 6 mmol/L (5-15) Blood Urea Nitrogen 12 mg/dL (7-18) 13 mg/dL (7-18) Creatinine 0.7 MG/DL (0.55-1.30) 0.7 MG/DL (0.55-1.30) Estimat Glomerular Filtration Rate > 60 mL/min (>60) > 60 mL/min (>60) Glucose Level 98 MG/DL (74-106) 89 MG/DL (74-106) Calcium Level 9.8 MG/DL (8.5-10.1) 9.4 MG/DL (8.5-10.1) Height (Feet): 6 Height (Inches): 0.00 Weight (Pounds): 160 Objective vitals: noted gen: nonverbal pulm: ctab, some crackles left side, nc+ heent; nc, at, eomi Cv: rrr, no mgr abd: soft, nt, nd +gtube ext: no cce Ignacio Ponce MD October 07, 2019 06:50
[2019-10-07 07:18] LABS: ALANINE AMINOTRANSFERASE 40 U/L (12-78); ALBUMIN 2.5 G/DL (3.4-5.0); ALBUMIN/GLOBULIN RATIO 0.4 (1.0-2.7); ALKALINE PHOSPHATASE 236 U/L (46-116); ANION GAP 4 mmol/L (5-15); ASPARTATE AMINO TRANSFERASE 52 U/L (15-37); BILIRUBIN,TOTAL 0.2 MG/DL (0.2-1.0); BLOOD UREA NITROGEN 17 mg/dL (7-18); CALCIUM 10.2 MG/DL (8.5-10.1); CARBON DIOXIDE 35 MMOL/L (21-32); CHLORIDE 100 MMOL/L (98-107); CREATININE 0.8 MG/DL (0.55-1.30); POTASSIUM 4.9 MMOL/L (3.5-5.1); SODIUM 139 MMOL/L (136-145)
[2019-10-07 08:00] VITALS: BP 121/74
[2019-10-07] MEDS: Ascorbic Acid 500mg tab GT SCH ×2 (08:50→17:11)
[2019-10-07] MEDS: levETIRAcetam 500mg/5ml Liquid GT SCH ×2 (08:50→21:34)
[2019-10-07] MEDS: Milk of Magnesia 30ml Ud GT SCH (08:50)
[2019-10-07] MEDS: Ferrous Sulfate 300 MG/5 ML UDC GT SCH ×2 (08:50→17:10)
[2019-10-07] MEDS: Phenytoin Susp 100mg/4ml GT SCH (08:50)
[2019-10-07] MEDS: Sennosides 8.6mg tab GT SCH (08:50)
[2019-10-07] MEDS: Docusate 100mg/10ml Liq GT SCH ×2 (08:51→17:11)
--- NOTE | 2019-10-07 09:57 | General Progress Note ---
Assessment/Plan Status: progressing Assessment/Plan: 1. Hypertension. 2. Diabetes. 3. COPD. 4. History of pacemaker placement. 5. Dementia. 6. gastroparesis reglan GTF GT flushes repeat labs pending dc will fu Subjective ROS Limited/Unobtainable: No Allergies: Coded Allergies: PNEUMOCOCCAL VACCINE (Unverified Allergy, Unknown, 10/07/18) Uncoded Allergies: PNA VACCINE (Allergy, Unknown, 09/30/19) Objective Last 24 Hour Vital Signs Date Time Temp Pulse Resp B/P (MAP) Pulse Ox O2 Delivery O2 Flow Rate FiO2 10/07/19 08:50 98 121/74 10/07/19 08:00 99.2 98 20 121/74 (90) 93 10/07/19 05:51 100/63 10/07/19 04:00 99.7 98 17 100/63 (75) 100 10/07/19 04:00 95 10/07/19 00:00 88 10/07/19 00:00 98.0 92 19 102/60 (74) 94 10/07/19 00:00 109/60 10/06/19 21:00 Nasal Cannula 2.0 10/06/19 20:29 96 Nasal Cannula 2.0 28 10/06/19 20:00 99.0 93 17 99/57 (71) 99 10/06/19 20:00 82 10/06/19 17:46 142/76 10/06/19 16:00 82 10/06/19 15:37 97.8 90 20 142/76 (98) 94 10/06/19 12:00 99.0 90 20 102/64 (77) 95 10/06/19 12:00 82 10/06/19 12:00 102/64 Intake and Output 10/06/19 10/07/19 19:00 07:00 Output Total 700 ml 1400 ml Balance -700 ml -1400 ml Output Urine Total 700 ml 1400 ml # Bowel Movements 1 Laboratory Tests 10/07/19 05:50: White Blood Count 18.0H, Red Blood Count 3.34L, Hemoglobin 10.9L, Hematocrit 32.6L, Mean Corpuscular Volume 98, Mean Corpuscular Hemoglobin 32.7H, Mean Corpuscular Hemoglobin Concent 33.5, Red Cell Distribution Width 13.9, Platelet Count 425, Mean Platelet Volume 5.9L, Neutrophils (%) (Auto) , Lymphocytes (%) ( Auto) , Monocytes (%) (Auto) , Eosinophils (%) (Auto) , Basophils (%) (Auto) , Differential Total Cells Counted 100, Neutrophils % (Manual) 51, Lymphocytes % ( Manual) 28, Monocytes % (Manual) 16H, Eosinophils % (Manual) 1, Basophils % ( Manual) 0, Metamyelocytes % 3H, Band Neutrophils 1, Platelet Estimate Adequate, Platelet Morphology Normal, Hypochromasia 1+, Anisocytosis 1+, Sodium Level 139 , Potassium Level 4.9, Chloride Level 100, Carbon Dioxide Level 35H, Anion Gap 4L, Blood Urea Nitrogen 17, Creatinine 0.8, Estimat Glomerular Filtration Rate > 60, Glucose Level 88, Calcium Level 10.2H, Total Bilirubin 0.2, Aspartate Amino Transf (AST/SGOT) 52H, Alanine Aminotransferase (ALT/SGPT) 40, Alkaline Phosphatase 236H, Total Protein 8.2, Albumin 2.5L, Globulin 5.7, Albumin/ Globulin Ratio 0.4L Height (Feet): 6 Height (Inches): 0.00 Weight (Pounds): 160 General Appearance: no apparent distress EENT: normal ENT inspection Neck: supple Cardiovascular: normal rate Respiratory/Chest: decreased breath sounds Abdomen: normal bowel sounds, non tender, soft Extremities: non-tender Terence Anton MD October 07, 2019 09:57
--- NOTE | 2019-10-07 10:43 | Cardiac Electrophysiology PN ---
Assessment/Plan Assessment/Plan 1. Sinus tachycardia due to pneumonia and dehydration. Improved on Abx and iv fluids that was DCed 2. Hypertension on amlodipine 10 mg daily. 3. Shortness of breath, fever, and high white count. On IV antibiotic and being ruled out for COVID and isolation( first Covid is negative. Second is pending). 4. History of seizures, on Keppra. 5. Dysphagia, s/P PEG placement. 6. Hypernatremia and dehydration. Resolved DW RN Subjective Subjective In isolation for Covid (negative x1. Swabbed again ,results pending). In SR in NAD Objective Last 24 Hour Vital Signs Date Time Temp Pulse Resp B/P (MAP) Pulse Ox O2 Delivery O2 Flow Rate FiO2 10/07/19 09:00 Nasal Cannula 2.0 10/07/19 08:50 98 121/74 10/07/19 08:00 99.2 98 20 121/74 (90) 93 10/07/19 05:51 100/63 10/07/19 04:00 99.7 98 17 100/63 (75) 100 10/07/19 04:00 95 10/07/19 00:00 88 10/07/19 00:00 98.0 92 19 102/60 (74) 94 10/07/19 00:00 109/60 10/06/19 21:00 Nasal Cannula 2.0 10/06/19 20:29 96 Nasal Cannula 2.0 28 10/06/19 20:00 99.0 93 17 99/57 (71) 99 10/06/19 20:00 82 10/06/19 17:46 142/76 10/06/19 16:00 82 10/06/19 15:37 97.8 90 20 142/76 (98) 94 10/06/19 12:00 99.0 90 20 102/64 (77) 95 10/06/19 12:00 82 10/06/19 12:00 102/64 Intake and Output 10/06/19 10/07/19 19:00 07:00 Output Total 700 ml 1400 ml Balance -700 ml -1400 ml Output Urine Total 700 ml 1400 ml # Bowel Movements 1 Laboratory Tests Test 10/07/19 05:50 White Blood Count 18.0 K/UL (4.8-10.8) H Red Blood Count 3.34 M/UL (4.70-6.10) L Hemoglobin 10.9 G/DL (14.2-18.0) L Hematocrit 32.6 % (42.0-52.0) L Mean Corpuscular Volume 98 FL (80-99) Mean Corpuscular Hemoglobin 32.7 PG (27.0-31.0) H Mean Corpuscular Hemoglobin Concent 33.5 G/DL (32.0-36.0) Red Cell Distribution Width 13.9 % (11.6-14.8) Platelet Count 425 K/UL (150-450) Mean Platelet Volume 5.9 FL (6.5-10.1) L Neutrophils (%) (Auto) % (45.0-75.0) Lymphocytes (%) (Auto) % (20.0-45.0) Monocytes (%) (Auto) % (1.0-10.0) Eosinophils (%) (Auto) % (0.0-3.0) Basophils (%) (Auto) % (0.0-2.0) Differential Total Cells Counted 100 Neutrophils % (Manual) 51 % (45-75) Lymphocytes % (Manual) 28 % (20-45) Monocytes % (Manual) 16 % (1-10) H Eosinophils % (Manual) 1 % (0-3) Basophils % (Manual) 0 % (0-2) Metamyelocytes % 3 % (0-0) H Band Neutrophils 1 % (0-8) Platelet Estimate Adequate Platelet Morphology Normal Hypochromasia 1+ Anisocytosis 1+ Sodium Level 139 MMOL/L (136-145) Potassium Level 4.9 MMOL/L (3.5-5.1) Chloride Level 100 MMOL/L (98-107) Carbon Dioxide Level 35 MMOL/L (21-32) H Anion Gap 4 mmol/L (5-15) L Blood Urea Nitrogen 17 mg/dL (7-18) Creatinine 0.8 MG/DL (0.55-1.30) Estimat Glomerular Filtration Rate > 60 mL/min (>60) Glucose Level 88 MG/DL (74-106) Calcium Level 10.2 MG/DL (8.5-10.1) H Total Bilirubin 0.2 MG/DL (0.2-1.0) Aspartate Amino Transf (AST/SGOT) 52 U/L (15-37) H Alanine Aminotransferase (ALT/SGPT) 40 U/L (12-78) Alkaline Phosphatase 236 U/L (46-116) H Total Protein 8.2 G/DL (6.4-8.2) Albumin 2.5 G/DL (3.4-5.0) L Globulin 5.7 g/dL Albumin/Globulin Ratio 0.4 (1.0-2.7) L Objective HEAD AND NECK: No JVD. LUNGS: Coarse rhonchi. CARDIOVASCULAR: Regular S1 and S2 with no gallop. ABDOMEN: Status post G-tube. EXTREMITIES: No pitting edema. Sajan Campbell MD October 07, 2019 10:43
[2019-10-07 12:00] VITALS: BP 112/67
--- NOTE | 2019-10-07 14:16 | Infectious Diseases Prog Note ---
Assessment/Plan Assessment/Plan IMPRESSION: 1. MDR Acinetobacter sepsis 2. Pneumonia. Negative COVID19 X 1 3. Unstageable pressure ulcer that doesn't seem to be infected . 4. Hypernatremia. 5. Anemia. 6. Advanced dementia. 7. History of diverticulosis. 8. Gastrostomy status. 9. Leukocytosis RECOMMENDATION: continue Polymyxin B Start on Zosyn We will follow up cultures will f/u COVID-19 test Subjective ROS Limited/Unobtainable: Yes Allergies: Coded Allergies: PNEUMOCOCCAL VACCINE (Unverified Allergy, Unknown, 10/07/18) Uncoded Allergies: PNA VACCINE (Allergy, Unknown, 09/30/19) Objective Vital Signs Last 24 Hour Vital Signs Date Time Temp Pulse Resp B/P (MAP) Pulse Ox O2 Delivery O2 Flow Rate FiO2 10/07/19 12:00 99.9 99 20 112/67 (82) 94 10/07/19 11:32 112/67 10/07/19 09:00 Nasal Cannula 2.0 10/07/19 08:50 98 121/74 10/07/19 08:00 99.2 98 20 121/74 (90) 93 10/07/19 07:54 95 10/07/19 05:51 100/63 10/07/19 04:00 99.7 98 17 100/63 (75) 100 10/07/19 04:00 95 10/07/19 00:00 88 10/07/19 00:00 98.0 92 19 102/60 (74) 94 10/07/19 00:00 109/60 10/06/19 21:00 Nasal Cannula 2.0 10/06/19 20:29 96 Nasal Cannula 2.0 28 10/06/19 20:00 99.0 93 17 99/57 (71) 99 10/06/19 20:00 82 10/06/19 17:46 142/76 10/06/19 16:00 82 10/06/19 15:37 97.8 90 20 142/76 (98) 94 Height (Feet): 6 Height (Inches): 0.00 Weight (Pounds): 160 General Appearance: no acute distress HEENT: mucous membranes moist Cardiovascular: normal rate Abdomen: soft, non tender, other - Gt feeding Neurologic/Psychiatric: aphasia Laboratory Tests Test 10/07/19 05:50 White Blood Count 18.0 K/UL (4.8-10.8) H Red Blood Count 3.34 M/UL (4.70-6.10) L Hemoglobin 10.9 G/DL (14.2-18.0) L Hematocrit 32.6 % (42.0-52.0) L Mean Corpuscular Volume 98 FL (80-99) Mean Corpuscular Hemoglobin 32.7 PG (27.0-31.0) H Mean Corpuscular Hemoglobin Concent 33.5 G/DL (32.0-36.0) Red Cell Distribution Width 13.9 % (11.6-14.8) Platelet Count 425 K/UL (150-450) Mean Platelet Volume 5.9 FL (6.5-10.1) L Neutrophils (%) (Auto) % (45.0-75.0) Lymphocytes (%) (Auto) % (20.0-45.0) Monocytes (%) (Auto) % (1.0-10.0) Eosinophils (%) (Auto) % (0.0-3.0) Basophils (%) (Auto) % (0.0-2.0) Differential Total Cells Counted 100 Neutrophils % (Manual) 51 % (45-75) Lymphocytes % (Manual) 28 % (20-45) Monocytes % (Manual) 16 % (1-10) H Eosinophils % (Manual) 1 % (0-3) Basophils % (Manual) 0 % (0-2) Metamyelocytes % 3 % (0-0) H Band Neutrophils 1 % (0-8) Platelet Estimate Adequate Platelet Morphology Normal Hypochromasia 1+ Anisocytosis 1+ Sodium Level 139 MMOL/L (136-145) Potassium Level 4.9 MMOL/L (3.5-5.1) Chloride Level 100 MMOL/L (98-107) Carbon Dioxide Level 35 MMOL/L (21-32) H Anion Gap 4 mmol/L (5-15) L Blood Urea Nitrogen 17 mg/dL (7-18) Creatinine 0.8 MG/DL (0.55-1.30) Estimat Glomerular Filtration Rate > 60 mL/min (>60) Glucose Level 88 MG/DL (74-106) Calcium Level 10.2 MG/DL (8.5-10.1) H Total Bilirubin 0.2 MG/DL (0.2-1.0) Aspartate Amino Transf (AST/SGOT) 52 U/L (15-37) H Alanine Aminotransferase (ALT/SGPT) 40 U/L (12-78) Alkaline Phosphatase 236 U/L (46-116) H Total Protein 8.2 G/DL (6.4-8.2) Albumin 2.5 G/DL (3.4-5.0) L Globulin 5.7 g/dL Albumin/Globulin Ratio 0.4 (1.0-2.7) L Current Medications Medications (Trade) Dose Ordered Sig/Nidhi Route PRN Reason Start Time Stop Time Status Last Admin Dose Admin Acetaminophen (Tylenol) 650 mg Q4H PRN GT Pain/Temp >100.5 10/01/19 03:30 10/30/19 23:29 10/06/19 09:02 Amlodipine Besylate (Norvasc) 10 mg DAILY GT 10/01/19 09:00 10/31/19 08:59 10/07/19 08:50 Ascorbic Acid (Vitamin C) 250 mg BID GT 10/01/19 09:00 10/31/19 08:59 10/07/19 08:50 Clonidine HCl (Catapres Tab) 0.1 mg EVERY 6 HOURS GT 10/01/19 00:00 12/30/19 00:00 10/07/19 11:32 Dextrose (Dextrose 50%) 25 ml Q30M PRN IV Hypoglycemia 09/30/19 22:00 12/29/19 21:59 Dextrose (Dextrose 50%) 50 ml Q30M PRN IV Hypoglycemia 09/30/19 22:00 12/29/19 21:59 Docusate Sodium (Colace) 100 mg TWICE A DAY GT 10/01/19 09:00 10/31/19 08:59 10/07/19 08:51 Donepezil HCl (Aricept) 5 mg BEDTIME GT 10/01/19 21:00 10/31/19 20:59 10/06/19 21:11 Ferrous Sulfate (Feosol) 325 mg BID GT 10/01/19 09:00 12/30/19 08:59 10/07/19 08:50 Heparin Sodium (Porcine) (Heparin 5000 units/ml) 5,000 units EVERY 8 HOURS SUBQ 10/01/19 06:00 11/15/19 05:59 5/5/20 06:01 Insulin Aspart (NovoLOG) BEFORE MEALS AND HS SUBQ 09/30/19 21:51 12/29/19 21:50 10/02/19 21:24 Levetiracetam (Keppra) 500 mg Q12HR GT 10/01/19 09:00 11/15/19 08:59 10/07/19 08:50 Magnesium Hydroxide (Mom) 30 ml DAILY GT 10/01/19 09:00 10/31/19 08:59 10/07/19 08:50 Metoclopramide HCl (Reglan) 5 mg Q6H PRN IVP Nausea & Vomiting 10/02/19 09:45 11/01/19 09:44 Multivitamins (Multivitamins) 1 tab DAILY GT 10/01/19 09:00 10/31/19 08:59 10/07/19 08:50 Phenytoin (Dilantin) 300 mg DAILY GT 10/01/19 09:00 11/15/19 08:59 10/07/19 08:50 Polymyxin B Sulfate [id number] units/Dextrose 550 ml @ 550 mls/hr Q12H IV 10/03/19 13:00 10/10/19 12:59 10/07/19 00:10 Sennosides (Senokot) 8.6 mg DAILY GT 10/01/19 09:00 10/31/19 08:59 10/07/19 08:50 Curtis Farah MD October 07, 2019 14:16
--- NOTE | 2019-10-07 15:21 | Surgery Progress Note ---
Surgery Progress Note Subjective Additional Comments worsening leukocytosis hd stable cxr noted and worse exam unchanged Objective Last 24 Hour Vital Signs Date Time Temp Pulse Resp B/P (MAP) Pulse Ox O2 Delivery O2 Flow Rate FiO2 10/07/19 12:00 99.9 99 20 112/67 (82) 94 10/07/19 11:32 112/67 10/07/19 09:00 Nasal Cannula 2.0 10/07/19 08:50 98 121/74 10/07/19 08:00 99.2 98 20 121/74 (90) 93 10/07/19 07:54 95 10/07/19 05:51 100/63 10/07/19 04:00 99.7 98 17 100/63 (75) 100 10/07/19 04:00 95 10/07/19 00:00 88 10/07/19 00:00 98.0 92 19 102/60 (74) 94 10/07/19 00:00 109/60 10/06/19 21:00 Nasal Cannula 2.0 10/06/19 20:29 96 Nasal Cannula 2.0 28 10/06/19 20:00 99.0 93 17 99/57 (71) 99 10/06/19 20:00 82 10/06/19 17:46 142/76 10/06/19 16:00 82 10/06/19 15:37 97.8 90 20 142/76 (98) 94 I&O Intake and Output 10/06/19 10/07/19 19:00 07:00 Output Total 700 ml 1400 ml Balance -700 ml -1400 ml Output Urine Total 700 ml 1400 ml # Bowel Movements 1 Dressing: saturated Wound: other Cardiovascular: RSR Respiratory: decreased breath sounds Abdomen: soft, non-tender, present bowel sounds Extremities: no cyanosis Laboratory Tests Test 10/07/19 05:50 White Blood Count 18.0 K/UL (4.8-10.8) H Red Blood Count 3.34 M/UL (4.70-6.10) L Hemoglobin 10.9 G/DL (14.2-18.0) L Hematocrit 32.6 % (42.0-52.0) L Mean Corpuscular Volume 98 FL (80-99) Mean Corpuscular Hemoglobin 32.7 PG (27.0-31.0) H Mean Corpuscular Hemoglobin Concent 33.5 G/DL (32.0-36.0) Red Cell Distribution Width 13.9 % (11.6-14.8) Platelet Count 425 K/UL (150-450) Mean Platelet Volume 5.9 FL (6.5-10.1) L Neutrophils (%) (Auto) % (45.0-75.0) Lymphocytes (%) (Auto) % (20.0-45.0) Monocytes (%) (Auto) % (1.0-10.0) Eosinophils (%) (Auto) % (0.0-3.0) Basophils (%) (Auto) % (0.0-2.0) Differential Total Cells Counted 100 Neutrophils % (Manual) 51 % (45-75) Lymphocytes % (Manual) 28 % (20-45) Monocytes % (Manual) 16 % (1-10) H Eosinophils % (Manual) 1 % (0-3) Basophils % (Manual) 0 % (0-2) Metamyelocytes % 3 % (0-0) H Band Neutrophils 1 % (0-8) Platelet Estimate Adequate Platelet Morphology Normal Hypochromasia 1+ Anisocytosis 1+ Sodium Level 139 MMOL/L (136-145) Potassium Level 4.9 MMOL/L (3.5-5.1) Chloride Level 100 MMOL/L (98-107) Carbon Dioxide Level 35 MMOL/L (21-32) H Anion Gap 4 mmol/L (5-15) L Blood Urea Nitrogen 17 mg/dL (7-18) Creatinine 0.8 MG/DL (0.55-1.30) Estimat Glomerular Filtration Rate > 60 mL/min (>60) Glucose Level 88 MG/DL (74-106) Calcium Level 10.2 MG/DL (8.5-10.1) H Total Bilirubin 0.2 MG/DL (0.2-1.0) Aspartate Amino Transf (AST/SGOT) 52 U/L (15-37) H Alanine Aminotransferase (ALT/SGPT) 40 U/L (12-78) Alkaline Phosphatase 236 U/L (46-116) H Total Protein 8.2 G/DL (6.4-8.2) Albumin 2.5 G/DL (3.4-5.0) L Globulin 5.7 g/dL Albumin/Globulin Ratio 0.4 (1.0-2.7) L Plan Problems: (1) Decubitus skin ulcer Assessment & Plan: Pt presented on admission with multiple pressure injuries. Resolving pressure injury cleft of R ear. Mcmullin epithelial at base of wound with marginal erythema. Non-blanching erythema cleft of L ear. Pt is receiving o2 via nasal cannula, and oxygen tubing padded with gauze to minimize pressure and friction to both ears. Unstageable Sacral Pressure Injury(L)9.4cm x (W)7.8cm. Base of wound is 75% necrotic and and soft, 20% surrounding slough,Marginal erythema and macerated borders. Mild odor noted. Small amt seropurulent exudate.Periwound,skin tone is darker without elevation in skin temp, fluctuance or induration.small area of hyperpigmentation noted to L gluteal cheek. L Heel extending into plantar aspect is boggy with non-blanching erythema. Non-blanching erythema R heel without induration or fluctuance. Xerosis skin both feet. Tx.Plan: Cleanse Sacral wound with Saline. Apply Therahoney. Apply Moisture Barrier Paste periwound. Cover with Optifoam Drsg. Change every 3 days and prn. Apply Moisture Barrier paste to Perineum, R and L buttocks with each incontinence care. Apply Cavilon Skin Barrier to both heels. Cover each heel with Optifoam drsg. Change every 7 days and prn. Apply Cavilon Skin Barrier to clefts of both R and L ears Daily. Pad Oxygen tubing with gauze around Ears. Keep Oxygen tubing loose around Ears. Reposition at least every 2hours or as tolerated. Off-load heels with pillow. APM/CHRISTOPHER Mattress overlay. (2) Leukocytosis Assessment & Plan: leukocytosis 28k on admission trending down resolving wbc on abx wounds unlikely etiology pna ua noted cont abx as per id wbc 12k trending up again imaging reviewed abx changed per Id will follow with recs wbc trending up cxr with v Apparently increased hazy airspace opacity on background of generalized mild interstitial disease. May be an artifact of under distention but could reflect worsening bilateral infiltrates. Stable bibasilar atelectasis and right basilar consolidation thank you (3) Lung mass (4) Protein-calorie malnutrition, severe Assessment & Plan: There is a gastrostomy tube in place. Previously demonstrated nasogastric tube is no longer evident. Bowel gas pattern is unremarkable. No masses or unusual calcifications. There is evidence of a Macedo catheter. There is a right hip prosthesis. There are degenerative changes of the lumbar spine nutritional optimization tube feeds bmi noted alb low DAILY ESTIMATED NEEDS: Needs based on Pulmonary, wounds; 72.5kg 25-30 kcals/kg 4150-0758 total kcals 1.25-1.5 g protein/kg 90-108 g total protein 25-30 mL/kg 2266-7638 total fluid mLs NUTRITION DIAGNOSIS: 1. Increased pro needs r/t wound healing as evidenced by pt adm w/ multiple wounds including unstageable sacral wound, refer to WC eval. 2. Swallowing difficulty r/t dysphagia as evidenced by GT dependent. CURRENT TF:Glucerna 1.5 @ 50ml/hr x 22 hrs (on Dilantin QD) ENTERAL NUTRITION RECOMMENDATIONS: Glucerna 1.5 @55ml/hr x22 hrs (1 hr held before and after Dilantin med) to provide 1210ml, 1815kcal, 100g prot, 918ml free water - Increase goal rate to 55ml/hr to meet 100% est kcal/prot needs - Hold 1 hr before and after Dilantin med - HOB over 30 degrees ADDITIONAL RECOMMENDATIONS: * Wound healing: continue Vit C add KESHIA in 4oz H2O BID via GT * Calibrated bedscale wt for accurate CBW * Check lytes daily w/ TF, replete as needed * Monitor TF tolerance/residuals * DC D5 once TF @ goal (5) Suspected COVID-19 virus infection Assessment & Plan: covid negative Right basilar consolidation and atelectasis, could indicate pneumonia. Minimal left basilar atelectasis Gabino Little October 07, 2019 15:21
[2019-10-07] MEDS: Piperacillin/Tazobactam 3.375 GM in NS 110 ML IVPB SCH ×2 (15:42→21:34)
[2019-10-07 16:00] VITALS: BP 106/56
--- NOTE | 2019-10-07 16:08 | Pulmonology Progress Note ---
Assessment/Plan Assessment/Plan IMPRESSION: 1. Right lung pneumonia. 2. half-way resident. 3. Recent hospitalization at acute hospital. 4. Diabetes mellitus. 5. Hypertension. 6. COPD. 7. Pacemaker. DISCUSSION: Continue broad-spectrum antibiotics. Continue oxygen, pulmonary hygiene. I will follow carefully. COVID 19 pcr x 1 negative Truman Bradford M.D. Subjective ROS Limited/Unobtainable: Yes Interval Events: None new Constitutional: Reports: fever, other HEENT: Repors: no symptoms Respiratory: Reports: dry cough, shortness of breath Cardiovascular: Reports: no symptoms Gastrointestinal/Abdominal: Reports: no symptoms Allergies: Coded Allergies: PNEUMOCOCCAL VACCINE (Unverified Allergy, Unknown, 10/07/18) Uncoded Allergies: PNA VACCINE (Allergy, Unknown, 09/30/19) All Systems: reviewed and negative except above Objective Last 24 Hour Vital Signs Date Time Temp Pulse Resp B/P (MAP) Pulse Ox O2 Delivery O2 Flow Rate FiO2 10/07/19 12:00 99.9 99 20 112/67 (82) 94 10/07/19 11:32 112/67 10/07/19 09:00 Nasal Cannula 2.0 10/07/19 08:50 98 121/74 10/07/19 08:00 99.2 98 20 121/74 (90) 93 10/07/19 07:54 95 10/07/19 05:51 100/63 10/07/19 04:00 99.7 98 17 100/63 (75) 100 10/07/19 04:00 95 10/07/19 00:00 88 10/07/19 00:00 98.0 92 19 102/60 (74) 94 10/07/19 00:00 109/60 10/06/19 21:00 Nasal Cannula 2.0 10/06/19 20:29 96 Nasal Cannula 2.0 28 10/06/19 20:00 99.0 93 17 99/57 (71) 99 10/06/19 20:00 82 10/06/19 17:46 142/76 Intake and Output 5/4/20 5/5/20 19:00 07:00 Output Total 700 ml 1400 ml Balance -700 ml -1400 ml Output Urine Total 700 ml 1400 ml # Bowel Movements 1 General Appearance: no acute distress HEENT: mucous membranes moist Respiratory/Chest: chest wall non-tender, decreased breath sounds Cardiovascular: normal peripheral pulses, normal rate Abdomen: soft, non tender, other - Gt feeding Extremities: no edema Neurologic/Psychiatric: aphasia Laboratory Tests 10/07/19 05:50: White Blood Count 18.0H, Red Blood Count 3.34L, Hemoglobin 10.9L, Hematocrit 32.6L, Mean Corpuscular Volume 98, Mean Corpuscular Hemoglobin 32.7H, Mean Corpuscular Hemoglobin Concent 33.5, Red Cell Distribution Width 13.9, Platelet Count 425, Mean Platelet Volume 5.9L, Neutrophils (%) (Auto) , Lymphocytes (%) ( Auto) , Monocytes (%) (Auto) , Eosinophils (%) (Auto) , Basophils (%) (Auto) , Differential Total Cells Counted 100, Neutrophils % (Manual) 51, Lymphocytes % ( Manual) 28, Monocytes % (Manual) 16H, Eosinophils % (Manual) 1, Basophils % ( Manual) 0, Metamyelocytes % 3H, Band Neutrophils 1, Platelet Estimate Adequate, Platelet Morphology Normal, Hypochromasia 1+, Anisocytosis 1+, Sodium Level 139 , Potassium Level 4.9, Chloride Level 100, Carbon Dioxide Level 35H, Anion Gap 4L, Blood Urea Nitrogen 17, Creatinine 0.8, Estimat Glomerular Filtration Rate > 60, Glucose Level 88, Calcium Level 10.2H, Total Bilirubin 0.2, Aspartate Amino Transf (AST/SGOT) 52H, Alanine Aminotransferase (ALT/SGPT) 40, Alkaline Phosphatase 236H, Total Protein 8.2, Albumin 2.5L, Globulin 5.7, Albumin/ Globulin Ratio 0.4L Current Medications Medications (Trade) Dose Ordered Sig/Nidhi Route PRN Reason Start Time Stop Time Status Last Admin Dose Admin Acetaminophen (Tylenol) 650 mg Q4H PRN GT Pain/Temp >100.5 10/01/19 03:30 10/30/19 23:29 10/06/19 09:02 Amlodipine Besylate (Norvasc) 10 mg DAILY GT 10/01/19 09:00 10/31/19 08:59 10/07/19 08:50 Ascorbic Acid (Vitamin C) 250 mg BID GT 10/01/19 09:00 10/31/19 08:59 10/07/19 08:50 Clonidine HCl (Catapres Tab) 0.1 mg EVERY 6 HOURS GT 10/01/19 00:00 12/30/19 00:00 10/07/19 11:32 Dextrose (Dextrose 50%) 25 ml Q30M PRN IV Hypoglycemia 09/30/19 22:00 12/29/19 21:59 Dextrose (Dextrose 50%) 50 ml Q30M PRN IV Hypoglycemia 09/30/19 22:00 12/29/19 21:59 Docusate Sodium (Colace) 100 mg TWICE A DAY GT 10/01/19 09:00 10/31/19 08:59 10/07/19 08:51 Donepezil HCl (Aricept) 5 mg BEDTIME GT 10/01/19 21:00 10/31/19 20:59 10/06/19 21:11 Ferrous Sulfate (Feosol) 325 mg BID GT 10/01/19 09:00 12/30/19 08:59 10/07/19 08:50 Heparin Sodium (Porcine) (Heparin 5000 units/ml) 5,000 units EVERY 8 HOURS SUBQ 10/01/19 06:00 11/15/19 05:59 10/07/19 14:28 Insulin Aspart (NovoLOG) BEFORE MEALS AND HS SUBQ 09/30/19 21:51 12/29/19 21:50 10/02/19 21:24 Levetiracetam (Keppra) 500 mg Q12HR GT 10/01/19 09:00 11/15/19 08:59 10/07/19 08:50 Magnesium Hydroxide (Mom) 30 ml DAILY GT 10/01/19 09:00 10/31/19 08:59 10/07/19 08:50 Metoclopramide HCl (Reglan) 5 mg Q6H PRN IVP Nausea & Vomiting 10/02/19 09:45 11/01/19 09:44 Multivitamins (Multivitamins) 1 tab DAILY GT 10/01/19 09:00 10/31/19 08:59 10/07/19 08:50 Phenytoin (Dilantin) 300 mg DAILY GT 10/01/19 09:00 11/15/19 08:59 10/07/19 08:50 Piperacillin Sod/ Tazobactam Sod 3.375 gm/Sodium Chloride 110 ml @ 27.5 mls/hr EVERY 8 HOURS IVPB 10/07/19 15:00 10/12/19 14:59 10/07/19 15:42 Polymyxin B Sulfate 230229 units/Dextrose 550 ml @ 550 mls/hr Q12H IV 10/03/19 13:00 10/10/19 12:59 10/07/19 14:27 Sennosides (Senokot) 8.6 mg DAILY GT 10/01/19 09:00 10/31/19 08:59 10/07/19 08:50 Truman Bradford MD October 07, 2019 16:08
--- NOTE | 2019-10-07 16:40 | General Progress Note ---
Assessment/Plan Problem List: (1) Fever ICD Codes: R50.9 - Fever, unspecified SNOMED: 809736586 (2) COPD (chronic obstructive pulmonary disease) ICD Codes: J44.9 - Chronic obstructive pulmonary disease, unspecified SNOMED: 32572381 (3) Severe sepsis ICD Codes: A41.9 - Sepsis, unspecified organism; R65.20 - Severe sepsis without septic shock SNOMED: 95845303 (4) PEG (percutaneous endoscopic gastrostomy) adjustment/replacement/removal ICD Codes: Z43.1 - Encounter for attention to gastrostomy SNOMED: 053785246, 690619797 (5) Protein-calorie malnutrition, severe ICD Codes: E43 - Unspecified severe protein-calorie malnutrition SNOMED: 951331726 (6) Acute febrile illness ICD Codes: R50.9 - Fever, unspecified SNOMED: 521880544 (7) PNA (pneumonia) ICD Codes: J18.9 - Pneumonia, unspecified organism SNOMED: 961941261 (8) Suspected COVID-19 virus infection ICD Codes: Z20.828 - Contact with and (suspected) exposure to other viral communicable diseases SNOMED: 473555040 (9) Congestion secondary to upper respiratory illness Status: progressing Assessment/Plan: positive blood cx pna resp insuff malnutrition abx per id sepsis dc planning leukocytosis is worsenin Subjective ROS Limited/Unobtainable: Yes Allergies: Coded Allergies: PNEUMOCOCCAL VACCINE (Unverified Allergy, Unknown, 10/07/18) Uncoded Allergies: PNA VACCINE (Allergy, Unknown, 09/30/19) Objective Last 24 Hour Vital Signs Date Time Temp Pulse Resp B/P (MAP) Pulse Ox O2 Delivery O2 Flow Rate FiO2 10/07/19 16:00 98.9 95 20 106/56 (73) 100 10/07/19 12:00 99.9 99 20 112/67 (82) 94 10/07/19 11:32 112/67 10/07/19 09:00 Nasal Cannula 2.0 10/07/19 08:50 98 121/74 10/07/19 08:00 99.2 98 20 121/74 (90) 93 10/07/19 07:54 95 10/07/19 05:51 100/63 10/07/19 04:00 99.7 98 17 100/63 (75) 100 10/07/19 04:00 95 10/07/19 00:00 88 10/07/19 00:00 98.0 92 19 102/60 (74) 94 10/07/19 00:00 109/60 10/06/19 21:00 Nasal Cannula 2.0 10/06/19 20:29 96 Nasal Cannula 2.0 28 10/06/19 20:00 99.0 93 17 99/57 (71) 99 10/06/19 20:00 82 10/06/19 17:46 142/76 Intake and Output 10/06/19 10/07/19 19:00 07:00 Output Total 700 ml 1400 ml Balance -700 ml -1400 ml Output Urine Total 700 ml 1400 ml # Bowel Movements 1 Laboratory Tests 10/07/19 05:50: White Blood Count 18.0H, Red Blood Count 3.34L, Hemoglobin 10.9L, Hematocrit 32.6L, Mean Corpuscular Volume 98, Mean Corpuscular Hemoglobin 32.7H, Mean Corpuscular Hemoglobin Concent 33.5, Red Cell Distribution Width 13.9, Platelet Count 425, Mean Platelet Volume 5.9L, Neutrophils (%) (Auto) , Lymphocytes (%) ( Auto) , Monocytes (%) (Auto) , Eosinophils (%) (Auto) , Basophils (%) (Auto) , Differential Total Cells Counted 100, Neutrophils % (Manual) 51, Lymphocytes % ( Manual) 28, Monocytes % (Manual) 16H, Eosinophils % (Manual) 1, Basophils % ( Manual) 0, Metamyelocytes % 3H, Band Neutrophils 1, Platelet Estimate Adequate, Platelet Morphology Normal, Hypochromasia 1+, Anisocytosis 1+, Sodium Level 139 , Potassium Level 4.9, Chloride Level 100, Carbon Dioxide Level 35H, Anion Gap 4L, Blood Urea Nitrogen 17, Creatinine 0.8, Estimat Glomerular Filtration Rate > 60, Glucose Level 88, Calcium Level 10.2H, Total Bilirubin 0.2, Aspartate Amino Transf (AST/SGOT) 52H, Alanine Aminotransferase (ALT/SGPT) 40, Alkaline Phosphatase 236H, Total Protein 8.2, Albumin 2.5L, Globulin 5.7, Albumin/ Globulin Ratio 0.4L Height (Feet): 6 Height (Inches): 0.00 Weight (Pounds): 160 Konrad Soares MD October 07, 2019 16:40
[2019-10-07 20:00] VITALS: BP 106/59
[2019-10-07] MEDS: Donepezil 5mg Tab GT SCH (21:34)
[2019-10-08] VITALS: BP 110/66
[2019-10-08] MEDS: Polymyxin B Sulfate 500,000 UNITS in D5W 500ml 550 ML IV SCH ×2 (01:00→15:02)
[2019-10-08 04:00] VITALS: BP 130/72
[2019-10-08] MEDS: Heparin 5000 units/ml inj SUBQ SCH ×3 (05:36→21:09)
[2019-10-08] MEDS: Piperacillin/Tazobactam 3.375 GM in NS 110 ML IVPB SCH ×3 (05:43→21:10)
[2019-10-08] MEDS: NovoLOG Insulin Flexpen SUBQ SCH ×4 (05:47→21:00)
--- NOTE | 2019-10-08 06:14 | Hematology/Onc Progress Note ---
Assessment/Plan Assessment/Plan # Leukocytosis on admission, rule out covid, given snf hx of multiple covid patinets, with pna noted on imaging --> may be due to infection --> per id --> wbc 28-->11.6-->12.1-->18 --> smear is noted --> abx cefepime/azithro-->polymyxin # Hypercalcemia r/o malignancy, r/o myeloma, elevated on admission, may be 2/2 dehydration --> Ca 10.7, pth is wnl, spep is also wnl as is upep --> on iv fluids as per pcp --> renal eval prn --> pth on prior admission was 42 # Multiple lung nodules -- in 2017 2 cm pleural-based masslike opacity containing multiple nodular calcifications andadjacent parenchymal linear density persists in the anterolateral periphery of thelateral segment right middle lobe, unchanged. Adjacent small nodular parenchymaldensities persist, unchanged. --> pulm aware --> consider ct chest once better --> Dr. 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 Subjective HEENT: Denies: no symptoms, eye pain, blurred vision, tearing, double vision, ear pain, ear discharge, nose pain, nose congestion, throat pain, throat swelling, mouth pain, mouth swelling, other Cardiovascular: Denies: no symptoms, chest pain, edema, irregular heart rate, lightheadedness, palpitations, syncope, other Respiratory: Denies: no symptoms, cough, shortness of breath, SOB with excertion, SOB at rest, sputum, wheezing, other Gastrointestinal/Abdominal: Denies: no symptoms, abdomen distended, abdominal pain, black stools, tarry stools, blood in stool, constipated, diarrhea, difficulty swallowing, nausea, poor appetite, poor fluid intake, rectal bleeding , vomiting, other Neurologic/Psychiatric: Denies: no symptoms, anxiety, depressed, emotional problems, headache, numbness, paresthesia, pre-existing deficit, seizure, tingling, tremors, weakness, other Endocrine: Denies: no symptoms, excessive sweating, flushing, intolerance to cold, intolerance to heat, increased hunger, increased thirst, increased urine, unexplained weight gain, unexplained weight loss, other Allergies: Coded Allergies: PNEUMOCOCCAL VACCINE (Unverified Allergy, Unknown, 10/07/18) Uncoded Allergies: PNA VACCINE (Allergy, Unknown, 09/30/19) Subjective 10/01 nonverbal, confused, to be npo, tube feeds on hold, no bleeding, meds reviewed 10/02 remains nonverbal, on gtube feeds, labs noted, no bleeding 10/04 labs reviewed, on polymyxin, cont sq heparin q8 hrs, nc 2l, 10/05 labs still pending, gtube feeds ongoing, no bleeding 10/06 remains confused, with glucerna running, labs reviewed, 99.7f overnight 10/07 labs reviewed, no bleeding, on glucerna, no fc Objective Objective Current Medications Medications (Trade) Dose Ordered Sig/Nidhi Route PRN Reason Start Time Stop Time Status Last Admin Dose Admin Acetaminophen (Tylenol) 650 mg Q4H PRN GT Pain/Temp >100.5 10/01/19 03:30 10/30/19 23:29 10/06/19 09:02 Amlodipine Besylate (Norvasc) 10 mg DAILY GT 10/01/19 09:00 10/31/19 08:59 10/07/19 08:50 Ascorbic Acid (Vitamin C) 250 mg BID GT 10/01/19 09:00 10/31/19 08:59 10/07/19 17:11 Clonidine HCl (Catapres Tab) 0.1 mg EVERY 6 HOURS GT 10/01/19 00:00 12/30/19 00:00 10/08/19 05:35 Dextrose (Dextrose 50%) 25 ml Q30M PRN IV Hypoglycemia 09/30/19 22:00 12/29/19 21:59 Dextrose (Dextrose 50%) 50 ml Q30M PRN IV Hypoglycemia 09/30/19 22:00 12/29/19 21:59 Docusate Sodium (Colace) 100 mg TWICE A DAY GT 10/01/19 09:00 10/31/19 08:59 10/07/19 17:11 Donepezil HCl (Aricept) 5 mg BEDTIME GT 10/01/19 21:00 10/31/19 20:59 10/07/19 21:34 Ferrous Sulfate (Feosol) 325 mg BID GT 10/01/19 09:00 12/30/19 08:59 10/07/19 17:10 Heparin Sodium (Porcine) (Heparin 5000 units/ml) 5,000 units EVERY 8 HOURS SUBQ 10/01/19 06:00 11/15/19 05:59 10/08/19 05:36 Insulin Aspart (NovoLOG) BEFORE MEALS AND HS SUBQ 09/30/19 21:51 12/29/19 21:50 10/02/19 21:24 Levetiracetam (Keppra) 500 mg Q12HR GT 10/01/19 09:00 11/15/19 08:59 10/07/19 21:34 Magnesium Hydroxide (Mom) 30 ml DAILY GT 10/01/19 09:00 10/31/19 08:59 10/07/19 08:50 Metoclopramide HCl (Reglan) 5 mg Q6H PRN IVP Nausea & Vomiting 10/02/19 09:45 11/01/19 09:44 Multivitamins (Multivitamins) 1 tab DAILY GT 10/01/19 09:00 10/31/19 08:59 10/07/19 08:50 Phenytoin (Dilantin) 300 mg DAILY GT 10/01/19 09:00 11/15/19 08:59 10/07/19 08:50 Piperacillin Sod/ Tazobactam Sod 3.375 gm/Sodium Chloride 110 ml @ 27.5 mls/hr EVERY 8 HOURS IVPB 10/07/19 15:00 10/12/19 14:59 10/08/19 05:43 Polymyxin B Sulfate 974357 units/Dextrose 550 ml @ 550 mls/hr Q12H IV 10/03/19 13:00 10/10/19 12:59 10/08/19 01:00 Sennosides (Senokot) 8.6 mg DAILY GT 10/01/19 09:00 10/31/19 08:59 10/07/19 08:50 Last 24 Hour Vital Signs Date Time Temp Pulse Resp B/P (MAP) Pulse Ox O2 Delivery O2 Flow Rate FiO2 10/08/19 05:35 130/72 10/08/19 04:00 96 10/08/19 04:00 97.4 92 19 130/72 (91) 97 10/08/19 00:00 74 10/08/19 00:00 97.3 89 18 110/66 (81) 95 10/08/19 00:00 110/66 10/07/19 21:00 Nasal Cannula 2.0 10/07/19 20:00 92 10/07/19 20:00 97.7 91 18 106/59 (75) 94 10/07/19 17:11 106/56 10/07/19 16:00 98.9 95 20 106/56 (73) 100 10/07/19 15:58 101 10/07/19 12:00 99.9 99 20 112/67 (82) 94 10/07/19 11:46 102 10/07/19 11:32 112/67 10/07/19 09:00 Nasal Cannula 2.0 10/07/19 08:50 98 121/74 10/07/19 08:00 99.2 98 20 121/74 (90) 93 10/07/19 07:54 95 10/07/19 05:51 100/63 10/07/19 04:00 99.7 98 17 100/63 (75) 100 10/07/19 04:00 95 10/07/19 00:00 88 10/07/19 00:00 98.0 92 19 102/60 (74) 94 10/07/19 00:00 109/60 10/06/19 21:00 Nasal Cannula 2.0 10/06/19 20:29 96 Nasal Cannula 2.0 28 10/06/19 20:00 99.0 93 17 99/57 (71) 99 10/06/19 20:00 82 10/06/19 17:46 142/76 10/06/19 16:00 82 10/06/19 15:37 97.8 90 20 142/76 (98) 94 10/06/19 12:00 99.0 90 20 102/64 (77) 95 10/06/19 12:00 82 10/06/19 12:00 102/64 10/06/19 09:32 99.0 10/06/19 09:00 Nasal Cannula 2.0 10/06/19 08:57 81 121/66 10/06/19 08:00 82 10/06/19 08:00 100.9 81 20 121/66 (84) 98 Intake and Output 10/07/19 10/08/19 18:59 06:59 Intake Total 632.5 ml Output Total 700 ml Balance -67.5 ml IV Total 632.5 ml Output Urine Total 700 ml # Bowel Movements 1 Labs Test 10/05/19 07:15 10/07/19 05:50 White Blood Count 12.1 K/UL (4.8-10.8) 18.0 K/UL (4.8-10.8) Red Blood Count 3.03 M/UL (4.70-6.10) 3.34 M/UL (4.70-6.10) Hemoglobin 9.8 G/DL (14.2-18.0) 10.9 G/DL (14.2-18.0) Hematocrit 29.4 % (42.0-52.0) 32.6 % (42.0-52.0) Mean Corpuscular Volume 97 FL (80-99) 98 FL (80-99) Mean Corpuscular Hemoglobin 32.5 PG (27.0-31.0) 32.7 PG (27.0-31.0) Mean Corpuscular Hemoglobin Concent 33.5 G/DL (32.0-36.0) 33.5 G/DL (32.0-36.0) Red Cell Distribution Width 13.9 % (11.6-14.8) 13.9 % (11.6-14.8) Platelet Count 175 K/UL (150-450) 425 K/UL (150-450) Mean Platelet Volume 6.2 FL (6.5-10.1) 5.9 FL (6.5-10.1) Neutrophils (%) (Auto) 63.4 % (45.0-75.0) % (45.0-75.0) Lymphocytes (%) (Auto) 24.8 % (20.0-45.0) % (20.0-45.0) Monocytes (%) (Auto) 7.8 % (1.0-10.0) % (1.0-10.0) Eosinophils (%) (Auto) 2.7 % (0.0-3.0) % (0.0-3.0) Basophils (%) (Auto) 1.3 % (0.0-2.0) % (0.0-2.0) Sodium Level 138 MMOL/L (136-145) 139 MMOL/L (136-145) Potassium Level 5.0 MMOL/L (3.5-5.1) 4.9 MMOL/L (3.5-5.1) Chloride Level 103 MMOL/L (98-107) 100 MMOL/L (98-107) Carbon Dioxide Level 29 MMOL/L (21-32) 35 MMOL/L (21-32) Anion Gap 6 mmol/L (5-15) 4 mmol/L (5-15) Blood Urea Nitrogen 13 mg/dL (7-18) 17 mg/dL (7-18) Creatinine 0.7 MG/DL (0.55-1.30) 0.8 MG/DL (0.55-1.30) Estimat Glomerular Filtration Rate > 60 mL/min (>60) > 60 mL/min (>60) Glucose Level 89 MG/DL (74-106) 88 MG/DL (74-106) Calcium Level 9.4 MG/DL (8.5-10.1) 10.2 MG/DL (8.5-10.1) Differential Total Cells Counted 100 Neutrophils % (Manual) 51 % (45-75) Lymphocytes % (Manual) 28 % (20-45) Monocytes % (Manual) 16 % (1-10) Eosinophils % (Manual) 1 % (0-3) Basophils % (Manual) 0 % (0-2) Metamyelocytes % 3 % (0-0) Band Neutrophils 1 % (0-8) Platelet Estimate Adequate Platelet Morphology Normal Hypochromasia 1+ Anisocytosis 1+ Total Bilirubin 0.2 MG/DL (0.2-1.0) Aspartate Amino Transf (AST/SGOT) 52 U/L (15-37) Alanine Aminotransferase (ALT/SGPT) 40 U/L (12-78) Alkaline Phosphatase 236 U/L (46-116) Total Protein 8.2 G/DL (6.4-8.2) Albumin 2.5 G/DL (3.4-5.0) Globulin 5.7 g/dL Albumin/Globulin Ratio 0.4 (1.0-2.7) Height (Feet): 6 Height (Inches): 0.00 Weight (Pounds): 160 Objective vitals: noted gen: nonverbal pulm: ctab, some crackles left side, nc+ heent; nc, at, eomi Cv: rrr, no mgr abd: soft, nt, nd +gtube ext: no cce Ignacio Ponce MD October 08, 2019 06:14
[2019-10-08 08:00] VITALS: BP 107/66
[2019-10-08 08:08] LABS: HEMATOCRIT 30.8 % (42.0-52.0); HEMOGLOBIN 10.3 G/DL (14.2-18.0); MEAN CORPUSCULAR VOLUME 98 FL (80-99); PLATELET COUNT 401 K/UL (150-450); RED BLOOD COUNT 3.15 M/UL (4.70-6.10); RED CELL DISTRIBUTION WIDTH 14.2 % (11.6-14.8); WHITE BLOOD COUNT 18.4 K/UL (4.8-10.8)
[2019-10-08 08:31] LABS: ALANINE AMINOTRANSFERASE 40 U/L (12-78); ALBUMIN 2.5 G/DL (3.4-5.0); ALBUMIN/GLOBULIN RATIO 0.4 (1.0-2.7); ALKALINE PHOSPHATASE 240 U/L (46-116); ANION GAP 6 mmol/L (5-15); ASPARTATE AMINO TRANSFERASE 52 U/L (15-37); BILIRUBIN,TOTAL 0.2 MG/DL (0.2-1.0); BLOOD UREA NITROGEN 15 mg/dL (7-18); CALCIUM 10.4 MG/DL (8.5-10.1); CARBON DIOXIDE 33 MMOL/L (21-32); CHLORIDE 99 MMOL/L (98-107); CREATININE 0.8 MG/DL (0.55-1.30); POTASSIUM 4.7 MMOL/L (3.5-5.1); SODIUM 138 MMOL/L (136-145)
--- NOTE | 2019-10-08 08:39 | General Progress Note ---
Assessment/Plan Status: progressing Assessment/Plan: 1. Hypertension. 2. Diabetes. 3. COPD. 4. History of pacemaker placement. 5. Dementia. 6. gastroparesis reglan GTF GT flushes repeat labs pending dc will fu Subjective ROS Limited/Unobtainable: No Allergies: Coded Allergies: PNEUMOCOCCAL VACCINE (Unverified Allergy, Unknown, 10/07/18) Uncoded Allergies: PNA VACCINE (Allergy, Unknown, 09/30/19) Objective Last 24 Hour Vital Signs Date Time Temp Pulse Resp B/P (MAP) Pulse Ox O2 Delivery O2 Flow Rate FiO2 10/08/19 08:00 98.6 86 19 107/66 (80) 97 10/08/19 05:35 130/72 10/08/19 04:00 96 10/08/19 04:00 97.4 92 19 130/72 (91) 97 10/08/19 00:00 74 10/08/19 00:00 97.3 89 18 110/66 (81) 95 10/08/19 00:00 110/66 10/07/19 21:00 Nasal Cannula 2.0 10/07/19 20:00 92 10/07/19 20:00 97.7 91 18 106/59 (75) 94 10/07/19 17:11 106/56 10/07/19 16:00 98.9 95 20 106/56 (73) 100 10/07/19 15:58 101 10/07/19 12:00 99.9 99 20 112/67 (82) 94 10/07/19 11:46 102 10/07/19 11:32 112/67 10/07/19 09:00 Nasal Cannula 2.0 10/07/19 08:50 98 121/74 Intake and Output 10/07/19 10/08/19 19:00 07:00 Intake Total 632.5 ml Output Total 700 ml 1000 ml Balance -67.5 ml -1000 ml IV Total 632.5 ml Output Urine Total 700 ml 1000 ml # Voids 2 # Bowel Movements 1 2 Laboratory Tests 10/08/19 06:00: White Blood Count 18.4H, Red Blood Count 3.15L, Hemoglobin 10.3L, Hematocrit 30.8L, Mean Corpuscular Volume 98, Mean Corpuscular Hemoglobin 32.6H, Mean Corpuscular Hemoglobin Concent 33.3, Red Cell Distribution Width 14.2, Platelet Count 401, Mean Platelet Volume 5.8L, Neutrophils (%) (Auto) , Lymphocytes (%) ( Auto) , Monocytes (%) (Auto) , Eosinophils (%) (Auto) , Basophils (%) (Auto) , Neutrophils % (Manual) [Pending], Lymphocytes % (Manual) [Pending], Platelet Estimate [Pending], Platelet Morphology [Pending], Sodium Level 138, Potassium Level 4.7, Chloride Level 99, Carbon Dioxide Level 33H, Anion Gap 6, Blood Urea Nitrogen 15, Creatinine 0.8, Estimat Glomerular Filtration Rate > 60, Glucose Level 83, Calcium Level 10.4H, Total Bilirubin 0.2, Aspartate Amino Transf (AST/ SGOT) 52H, Alanine Aminotransferase (ALT/SGPT) 40, Alkaline Phosphatase 240H, Total Protein 8.1, Albumin 2.5L, Globulin 5.6, Albumin/Globulin Ratio 0.4L Height (Feet): 6 Height (Inches): 0.00 Weight (Pounds): 186 General Appearance: no apparent distress EENT: normal ENT inspection Neck: supple Cardiovascular: normal rate Respiratory/Chest: decreased breath sounds Abdomen: normal bowel sounds, non tender, soft Extremities: non-tender Terence Anton MD October 08, 2019 08:38
[2019-10-08] MEDS: Ascorbic Acid 500mg tab GT SCH ×2 (08:46→18:00)
[2019-10-08] MEDS: Phenytoin Susp 100mg/4ml GT SCH (08:46)
[2019-10-08] MEDS: Milk of Magnesia 30ml Ud GT SCH (08:46)
[2019-10-08] MEDS: Ferrous Sulfate 300 MG/5 ML UDC GT SCH ×2 (08:46→18:00)
[2019-10-08] MEDS: levETIRAcetam 500mg/5ml Liquid GT SCH ×2 (08:46→21:10)
[2019-10-08] MEDS: Docusate 100mg/10ml Liq GT SCH ×2 (08:47→18:00)
[2019-10-08] MEDS: Sennosides 8.6mg tab GT SCH (08:47)
--- NOTE | 2019-10-08 10:31 | Pulmonology Progress Note ---
Assessment/Plan Assessment/Plan IMPRESSION: 1. Right lung pneumonia. 2. long term resident. 3. Recent hospitalization at acute hospital. 4. Diabetes mellitus. 5. Hypertension. 6. COPD. 7. Pacemaker. DISCUSSION: Continue broad-spectrum antibiotics. Continue oxygen, pulmonary hygiene. I will follow carefully. COVID 19 pcr x 1 negative Truman Bradford M.D. Subjective ROS Limited/Unobtainable: No Interval Events: None new Constitutional: Reports: fever, other HEENT: Repors: no symptoms Respiratory: Reports: dry cough, shortness of breath Cardiovascular: Reports: no symptoms Gastrointestinal/Abdominal: Reports: no symptoms Allergies: Coded Allergies: PNEUMOCOCCAL VACCINE (Unverified Allergy, Unknown, 10/07/18) Uncoded Allergies: PNA VACCINE (Allergy, Unknown, 09/30/19) All Systems: reviewed and negative except above Objective Last 24 Hour Vital Signs Date Time Temp Pulse Resp B/P (MAP) Pulse Ox O2 Delivery O2 Flow Rate FiO2 10/08/19 08:46 86 107/66 10/08/19 08:00 98.6 86 19 107/66 (80) 97 10/08/19 05:35 130/72 10/08/19 04:00 96 10/08/19 04:00 97.4 92 19 130/72 (91) 97 10/08/19 00:00 74 10/08/19 00:00 97.3 89 18 110/66 (81) 95 10/08/19 00:00 110/66 10/07/19 21:00 Nasal Cannula 2.0 10/07/19 20:00 92 10/07/19 20:00 97.7 91 18 106/59 (75) 94 10/07/19 17:11 106/56 10/07/19 16:00 98.9 95 20 106/56 (73) 100 10/07/19 15:58 101 10/07/19 12:00 99.9 99 20 112/67 (82) 94 10/07/19 11:46 102 10/07/19 11:32 112/67 Intake and Output 10/07/19 10/08/19 19:00 07:00 Intake Total 632.5 ml Output Total 700 ml 1000 ml Balance -67.5 ml -1000 ml IV Total 632.5 ml Output Urine Total 700 ml 1000 ml # Voids 2 # Bowel Movements 1 2 General Appearance: no acute distress HEENT: mucous membranes moist Respiratory/Chest: chest wall non-tender, decreased breath sounds Cardiovascular: normal peripheral pulses, normal rate Abdomen: soft, non tender, other - Gt feeding Extremities: no edema Neurologic/Psychiatric: aphasia Laboratory Tests 10/08/19 06:00: White Blood Count 18.4H, Red Blood Count 3.15L, Hemoglobin 10.3L, Hematocrit 30.8L, Mean Corpuscular Volume 98, Mean Corpuscular Hemoglobin 32.6H, Mean Corpuscular Hemoglobin Concent 33.3, Red Cell Distribution Width 14.2, Platelet Count 401, Mean Platelet Volume 5.8L, Neutrophils (%) (Auto) , Lymphocytes (%) ( Auto) , Monocytes (%) (Auto) , Eosinophils (%) (Auto) , Basophils (%) (Auto) , Differential Total Cells Counted 100, Neutrophils % (Manual) 61, Lymphocytes % ( Manual) 20, Monocytes % (Manual) 12H, Eosinophils % (Manual) 4H, Basophils % ( Manual) 0, Band Neutrophils 3, Platelet Estimate Adequate, Platelet Morphology Normal, Anisocytosis 1+, Macrocytosis 1+, Sodium Level 138, Potassium Level 4.7 , Chloride Level 99, Carbon Dioxide Level 33H, Anion Gap 6, Blood Urea Nitrogen 15, Creatinine 0.8, Estimat Glomerular Filtration Rate > 60, Glucose Level 83, Calcium Level 10.4H, Total Bilirubin 0.2, Aspartate Amino Transf (AST/SGOT) 52H , Alanine Aminotransferase (ALT/SGPT) 40, Alkaline Phosphatase 240H, Total Protein 8.1, Albumin 2.5L, Globulin 5.6, Albumin/Globulin Ratio 0.4L Current Medications Medications (Trade) Dose Ordered Sig/Nidhi Route PRN Reason Start Time Stop Time Status Last Admin Dose Admin Acetaminophen (Tylenol) 650 mg Q4H PRN GT Pain/Temp >100.5 10/01/19 03:30 10/30/19 23:29 10/06/19 09:02 Amlodipine Besylate (Norvasc) 10 mg DAILY GT 10/01/19 09:00 10/31/19 08:59 10/08/19 08:46 Ascorbic Acid (Vitamin C) 250 mg BID GT 10/01/19 09:00 10/31/19 08:59 10/08/19 08:46 Clonidine HCl (Catapres Tab) 0.1 mg EVERY 6 HOURS GT 10/01/19 00:00 12/30/19 00:00 10/08/19 05:35 Dextrose (Dextrose 50%) 25 ml Q30M PRN IV Hypoglycemia 09/30/19 22:00 12/29/19 21:59 Dextrose (Dextrose 50%) 50 ml Q30M PRN IV Hypoglycemia 09/30/19 22:00 12/29/19 21:59 Docusate Sodium (Colace) 100 mg TWICE A DAY GT 10/01/19 09:00 10/31/19 08:59 10/08/19 08:47 Donepezil HCl (Aricept) 5 mg BEDTIME GT 10/01/19 21:00 10/31/19 20:59 10/07/19 21:34 Ferrous Sulfate (Feosol) 325 mg BID GT 10/01/19 09:00 12/30/19 08:59 10/08/19 08:46 Heparin Sodium (Porcine) (Heparin 5000 units/ml) 5,000 units EVERY 8 HOURS SUBQ 10/01/19 06:00 11/15/19 05:59 10/08/19 05:36 Insulin Aspart (NovoLOG) BEFORE MEALS AND HS SUBQ 09/30/19 21:51 12/29/19 21:50 10/02/19 21:24 Levetiracetam (Keppra) 500 mg Q12HR GT 10/01/19 09:00 11/15/19 08:59 10/08/19 08:46 Magnesium Hydroxide (Mom) 30 ml DAILY GT 10/01/19 09:00 10/31/19 08:59 10/08/19 08:46 Metoclopramide HCl (Reglan) 5 mg Q6H PRN IVP Nausea & Vomiting 10/02/19 09:45 11/01/19 09:44 Multivitamins (Multivitamins) 1 tab DAILY GT 10/01/19 09:00 10/31/19 08:59 10/08/19 08:46 Phenytoin (Dilantin) 300 mg DAILY GT 10/01/19 09:00 11/15/19 08:59 10/08/19 08:46 Piperacillin Sod/ Tazobactam Sod 3.375 gm/Sodium Chloride 110 ml @ 27.5 mls/hr EVERY 8 HOURS IVPB 10/07/19 15:00 10/12/19 14:59 10/08/19 05:43 Polymyxin B Sulfate [id number] units/Dextrose 550 ml @ 550 mls/hr Q12H IV 10/03/19 13:00 10/10/19 12:59 10/08/19 01:00 Sennosides (Senokot) 8.6 mg DAILY GT 10/01/19 09:00 10/31/19 08:59 10/08/19 08:47 Truman Bradford MD October 08, 2019 10:31
--- NOTE | 2019-10-08 10:59 | Cardiac Electrophysiology PN ---
Assessment/Plan Assessment/Plan 1. Sinus tachycardia due to pneumonia and dehydration. Improved on Abx and iv fluids that was DCed 2. Hypertension on amlodipine 10 mg daily. 3. Shortness of breath, fever, and high white count. On IV antibiotic and being ruled out for COVID and isolation( first Covid is negative. Second is pending from 10/07/19). 4. History of seizures, on Keppra. 5. Dysphagia, s/P PEG 6. Hypernatremia and dehydration. Resolved DW RN Subjective Subjective In isolation for Covid (negative x1. Swabbed again 10/07/19 ,results pending). In SR in NAD Objective Last 24 Hour Vital Signs Date Time Temp Pulse Resp B/P (MAP) Pulse Ox O2 Delivery O2 Flow Rate FiO2 10/08/19 08:46 86 107/66 10/08/19 08:00 98.6 86 19 107/66 (80) 97 10/08/19 05:35 130/72 10/08/19 04:00 96 10/08/19 04:00 97.4 92 19 130/72 (91) 97 10/08/19 00:00 74 10/08/19 00:00 97.3 89 18 110/66 (81) 95 10/08/19 00:00 110/66 10/07/19 21:00 Nasal Cannula 2.0 10/07/19 20:00 92 10/07/19 20:00 97.7 91 18 106/59 (75) 94 10/07/19 17:11 106/56 10/07/19 16:00 98.9 95 20 106/56 (73) 100 10/07/19 15:58 101 10/07/19 12:00 99.9 99 20 112/67 (82) 94 10/07/19 11:46 102 10/07/19 11:32 112/67 Intake and Output 10/07/19 10/08/19 19:00 07:00 Intake Total 632.5 ml Output Total 700 ml 1000 ml Balance -67.5 ml -1000 ml IV Total 632.5 ml Output Urine Total 700 ml 1000 ml # Voids 2 # Bowel Movements 1 2 Laboratory Tests Test 10/08/19 06:00 White Blood Count 18.4 K/UL (4.8-10.8) H Red Blood Count 3.15 M/UL (4.70-6.10) L Hemoglobin 10.3 G/DL (14.2-18.0) L Hematocrit 30.8 % (42.0-52.0) L Mean Corpuscular Volume 98 FL (80-99) Mean Corpuscular Hemoglobin 32.6 PG (27.0-31.0) H Mean Corpuscular Hemoglobin Concent 33.3 G/DL (32.0-36.0) Red Cell Distribution Width 14.2 % (11.6-14.8) Platelet Count 401 K/UL (150-450) Mean Platelet Volume 5.8 FL (6.5-10.1) L Neutrophils (%) (Auto) % (45.0-75.0) Lymphocytes (%) (Auto) % (20.0-45.0) Monocytes (%) (Auto) % (1.0-10.0) Eosinophils (%) (Auto) % (0.0-3.0) Basophils (%) (Auto) % (0.0-2.0) Differential Total Cells Counted 100 Neutrophils % (Manual) 61 % (45-75) Lymphocytes % (Manual) 20 % (20-45) Monocytes % (Manual) 12 % (1-10) H Eosinophils % (Manual) 4 % (0-3) H Basophils % (Manual) 0 % (0-2) Band Neutrophils 3 % (0-8) Platelet Estimate Adequate Platelet Morphology Normal Anisocytosis 1+ Macrocytosis 1+ Sodium Level 138 MMOL/L (136-145) Potassium Level 4.7 MMOL/L (3.5-5.1) Chloride Level 99 MMOL/L (98-107) Carbon Dioxide Level 33 MMOL/L (21-32) H Anion Gap 6 mmol/L (5-15) Blood Urea Nitrogen 15 mg/dL (7-18) Creatinine 0.8 MG/DL (0.55-1.30) Estimat Glomerular Filtration Rate > 60 mL/min (>60) Glucose Level 83 MG/DL (74-106) Calcium Level 10.4 MG/DL (8.5-10.1) H Total Bilirubin 0.2 MG/DL (0.2-1.0) Aspartate Amino Transf (AST/SGOT) 52 U/L (15-37) H Alanine Aminotransferase (ALT/SGPT) 40 U/L (12-78) Alkaline Phosphatase 240 U/L (46-116) H Total Protein 8.1 G/DL (6.4-8.2) Albumin 2.5 G/DL (3.4-5.0) L Globulin 5.6 g/dL Albumin/Globulin Ratio 0.4 (1.0-2.7) L Objective HEAD AND NECK: No JVD. LUNGS: Coarse rhonchi. CARDIOVASCULAR: Regular S1 and S2 with no gallop. ABDOMEN: Status post G-tube. EXTREMITIES: No pitting edema. Sajan Campbell MD October 08, 2019 10:59
[2019-10-08 12:00] VITALS: BP 108/77
--- NOTE | 2019-10-08 12:10 | Infectious Diseases Prog Note ---
Assessment/Plan Assessment/Plan IMPRESSION: 1. MDR Acinetobacter sepsis 2. Pneumonia. Negative COVID19 X 2 3. Unstageable pressure ulcer that doesn't seem to be infected . 4. Hypernatremia. 5. Anemia. 6. Advanced dementia. 7. History of diverticulosis. 8. Gastrostomy status. 9. Leukocytosis RECOMMENDATION: continue Polymyxin B & Zosyn Discontinue Droplet isolation We will follow up cultures Subjective ROS Limited/Unobtainable: Yes Constitutional: Denies: fever Allergies: Coded Allergies: PNEUMOCOCCAL VACCINE (Unverified Allergy, Unknown, 10/07/18) Uncoded Allergies: PNA VACCINE (Allergy, Unknown, 09/30/19) Objective Vital Signs Last 24 Hour Vital Signs Date Time Temp Pulse Resp B/P (MAP) Pulse Ox O2 Delivery O2 Flow Rate FiO2 10/08/19 08:46 86 107/66 10/08/19 08:00 98.6 86 19 107/66 (80) 97 10/08/19 05:35 130/72 10/08/19 04:00 96 10/08/19 04:00 97.4 92 19 130/72 (91) 97 10/08/19 00:00 74 10/08/19 00:00 97.3 89 18 110/66 (81) 95 10/08/19 00:00 110/66 10/07/19 21:00 Nasal Cannula 2.0 10/07/19 20:00 92 10/07/19 20:00 97.7 91 18 106/59 (75) 94 10/07/19 17:11 106/56 10/07/19 16:00 98.9 95 20 106/56 (73) 100 10/07/19 15:58 101 General Appearance: no acute distress HEENT: mucous membranes moist Respiratory/Chest: rhonchi - bilaterally Cardiovascular: normal rate Abdomen: soft, non tender, other - GT feeding Neurologic/Psychiatric: aphasia, other - opens eyes Laboratory Tests Test 10/08/19 06:00 White Blood Count 18.4 K/UL (4.8-10.8) H Red Blood Count 3.15 M/UL (4.70-6.10) L Hemoglobin 10.3 G/DL (14.2-18.0) L Hematocrit 30.8 % (42.0-52.0) L Mean Corpuscular Volume 98 FL (80-99) Mean Corpuscular Hemoglobin 32.6 PG (27.0-31.0) H Mean Corpuscular Hemoglobin Concent 33.3 G/DL (32.0-36.0) Red Cell Distribution Width 14.2 % (11.6-14.8) Platelet Count 401 K/UL (150-450) Mean Platelet Volume 5.8 FL (6.5-10.1) L Neutrophils (%) (Auto) % (45.0-75.0) Lymphocytes (%) (Auto) % (20.0-45.0) Monocytes (%) (Auto) % (1.0-10.0) Eosinophils (%) (Auto) % (0.0-3.0) Basophils (%) (Auto) % (0.0-2.0) Differential Total Cells Counted 100 Neutrophils % (Manual) 61 % (45-75) Lymphocytes % (Manual) 20 % (20-45) Monocytes % (Manual) 12 % (1-10) H Eosinophils % (Manual) 4 % (0-3) H Basophils % (Manual) 0 % (0-2) Band Neutrophils 3 % (0-8) Platelet Estimate Adequate Platelet Morphology Normal Anisocytosis 1+ Macrocytosis 1+ Sodium Level 138 MMOL/L (136-145) Potassium Level 4.7 MMOL/L (3.5-5.1) Chloride Level 99 MMOL/L (98-107) Carbon Dioxide Level 33 MMOL/L (21-32) H Anion Gap 6 mmol/L (5-15) Blood Urea Nitrogen 15 mg/dL (7-18) Creatinine 0.8 MG/DL (0.55-1.30) Estimat Glomerular Filtration Rate > 60 mL/min (>60) Glucose Level 83 MG/DL (74-106) Calcium Level 10.4 MG/DL (8.5-10.1) H Total Bilirubin 0.2 MG/DL (0.2-1.0) Aspartate Amino Transf (AST/SGOT) 52 U/L (15-37) H Alanine Aminotransferase (ALT/SGPT) 40 U/L (12-78) Alkaline Phosphatase 240 U/L (46-116) H Total Protein 8.1 G/DL (6.4-8.2) Albumin 2.5 G/DL (3.4-5.0) L Globulin 5.6 g/dL Albumin/Globulin Ratio 0.4 (1.0-2.7) L Current Medications Medications (Trade) Dose Ordered Sig/Nidhi Route PRN Reason Start Time Stop Time Status Last Admin Dose Admin Acetaminophen (Tylenol) 650 mg Q4H PRN GT Pain/Temp >100.5 10/01/19 03:30 10/30/19 23:29 10/06/19 09:02 Amlodipine Besylate (Norvasc) 10 mg DAILY GT 10/01/19 09:00 10/31/19 08:59 10/08/19 08:46 Ascorbic Acid (Vitamin C) 250 mg BID GT 10/01/19 09:00 10/31/19 08:59 10/08/19 08:46 Clonidine HCl (Catapres Tab) 0.1 mg EVERY 6 HOURS GT 10/01/19 00:00 12/30/19 00:00 10/08/19 05:35 Dextrose (Dextrose 50%) 25 ml Q30M PRN IV Hypoglycemia 09/30/19 22:00 12/29/19 21:59 Dextrose (Dextrose 50%) 50 ml Q30M PRN IV Hypoglycemia 09/30/19 22:00 12/29/19 21:59 Docusate Sodium (Colace) 100 mg TWICE A DAY GT 10/01/19 09:00 10/31/19 08:59 10/08/19 08:47 Donepezil HCl (Aricept) 5 mg BEDTIME GT 10/01/19 21:00 10/31/19 20:59 10/07/19 21:34 Ferrous Sulfate (Feosol) 325 mg BID GT 10/01/19 09:00 12/30/19 08:59 10/08/19 08:46 Heparin Sodium (Porcine) (Heparin 5000 units/ml) 5,000 units EVERY 8 HOURS SUBQ 10/01/19 06:00 11/15/19 05:59 10/08/19 05:36 Insulin Aspart (NovoLOG) BEFORE MEALS AND HS SUBQ 09/30/19 21:51 12/29/19 21:50 10/02/19 21:24 Levetiracetam (Keppra) 500 mg Q12HR GT 10/01/19 09:00 11/15/19 08:59 10/08/19 08:46 Magnesium Hydroxide (Mom) 30 ml DAILY GT 10/01/19 09:00 10/31/19 08:59 10/08/19 08:46 Metoclopramide HCl (Reglan) 5 mg Q6H PRN IVP Nausea & Vomiting 10/02/19 09:45 11/01/19 09:44 Multivitamins (Multivitamins) 1 tab DAILY GT 10/01/19 09:00 10/31/19 08:59 10/08/19 08:46 Phenytoin (Dilantin) 300 mg DAILY GT 10/01/19 09:00 11/15/19 08:59 10/08/19 08:46 Piperacillin Sod/ Tazobactam Sod 3.375 gm/Sodium Chloride 110 ml @ 27.5 mls/hr EVERY 8 HOURS IVPB 10/07/19 15:00 10/12/19 14:59 10/08/19 05:43 Polymyxin B Sulfate [id number] units/Dextrose 550 ml @ 550 mls/hr Q12H IV 10/03/19 13:00 10/10/19 12:59 10/08/19 01:00 Sennosides (Senokot) 8.6 mg DAILY GT 10/01/19 09:00 10/31/19 08:59 10/08/19 08:47 Curtis Farah MD October 08, 2019 12:10
--- NOTE | 2019-10-08 14:50 | Surgery Progress Note ---
Surgery Progress Note Subjective Additional Comments no acute events Objective Last 24 Hour Vital Signs Date Time Temp Pulse Resp B/P (MAP) Pulse Ox O2 Delivery O2 Flow Rate FiO2 10/08/19 12:00 98 10/08/19 08:46 86 107/66 10/08/19 08:00 98.6 86 19 107/66 (80) 97 10/08/19 08:00 97 10/08/19 05:35 130/72 10/08/19 04:00 96 10/08/19 04:00 97.4 92 19 130/72 (91) 97 10/08/19 00:00 74 10/08/19 00:00 97.3 89 18 110/66 (81) 95 10/08/19 00:00 110/66 10/07/19 21:00 Nasal Cannula 2.0 10/07/19 20:00 92 10/07/19 20:00 97.7 91 18 106/59 (75) 94 10/07/19 17:11 106/56 10/07/19 16:00 98.9 95 20 106/56 (73) 100 10/07/19 15:58 101 I&O Intake and Output 10/07/19 10/08/19 19:00 07:00 Intake Total 632.5 ml Output Total 700 ml 1000 ml Balance -67.5 ml -1000 ml IV Total 632.5 ml Output Urine Total 700 ml 1000 ml # Voids 2 # Bowel Movements 1 2 Dressing: other Wound: other Drains: other Cardiovascular: RSR Respiratory: decreased breath sounds Abdomen: soft, non-tender, present bowel sounds Extremities: no cyanosis, other Laboratory Tests Test 10/08/19 06:00 White Blood Count 18.4 K/UL (4.8-10.8) H Red Blood Count 3.15 M/UL (4.70-6.10) L Hemoglobin 10.3 G/DL (14.2-18.0) L Hematocrit 30.8 % (42.0-52.0) L Mean Corpuscular Volume 98 FL (80-99) Mean Corpuscular Hemoglobin 32.6 PG (27.0-31.0) H Mean Corpuscular Hemoglobin Concent 33.3 G/DL (32.0-36.0) Red Cell Distribution Width 14.2 % (11.6-14.8) Platelet Count 401 K/UL (150-450) Mean Platelet Volume 5.8 FL (6.5-10.1) L Neutrophils (%) (Auto) % (45.0-75.0) Lymphocytes (%) (Auto) % (20.0-45.0) Monocytes (%) (Auto) % (1.0-10.0) Eosinophils (%) (Auto) % (0.0-3.0) Basophils (%) (Auto) % (0.0-2.0) Differential Total Cells Counted 100 Neutrophils % (Manual) 61 % (45-75) Lymphocytes % (Manual) 20 % (20-45) Monocytes % (Manual) 12 % (1-10) H Eosinophils % (Manual) 4 % (0-3) H Basophils % (Manual) 0 % (0-2) Band Neutrophils 3 % (0-8) Platelet Estimate Adequate Platelet Morphology Normal Anisocytosis 1+ Macrocytosis 1+ Sodium Level 138 MMOL/L (136-145) Potassium Level 4.7 MMOL/L (3.5-5.1) Chloride Level 99 MMOL/L (98-107) Carbon Dioxide Level 33 MMOL/L (21-32) H Anion Gap 6 mmol/L (5-15) Blood Urea Nitrogen 15 mg/dL (7-18) Creatinine 0.8 MG/DL (0.55-1.30) Estimat Glomerular Filtration Rate > 60 mL/min (>60) Glucose Level 83 MG/DL (74-106) Calcium Level 10.4 MG/DL (8.5-10.1) H Total Bilirubin 0.2 MG/DL (0.2-1.0) Aspartate Amino Transf (AST/SGOT) 52 U/L (15-37) H Alanine Aminotransferase (ALT/SGPT) 40 U/L (12-78) Alkaline Phosphatase 240 U/L (46-116) H Total Protein 8.1 G/DL (6.4-8.2) Albumin 2.5 G/DL (3.4-5.0) L Globulin 5.6 g/dL Albumin/Globulin Ratio 0.4 (1.0-2.7) L Plan Problems: (1) Decubitus skin ulcer Assessment & Plan: Pt presented on admission with multiple pressure injuries. Resolving pressure injury cleft of R ear. [place] epithelial at base of wound with marginal erythema. Non-blanching erythema cleft of L ear. Pt is receiving o2 via nasal cannula, and oxygen tubing padded with gauze to minimize pressure and friction to both ears. Unstageable Sacral Pressure Injury(L)9.4cm x (W)7.8cm. Base of wound is 75% necrotic and and soft, 20% surrounding slough,Marginal erythema and macerated borders. Mild odor noted. Small amt seropurulent exudate.Periwound,skin tone is darker without elevation in skin temp, fluctuance or induration.small area of hyperpigmentation noted to L gluteal cheek. L Heel extending into plantar aspect is boggy with non-blanching erythema. Non-blanching erythema R heel without induration or fluctuance. Xerosis skin both feet. Tx.Plan: Cleanse Sacral wound with Saline. Apply Therahoney. Apply Moisture Barrier Paste periwound. Cover with Optifoam Drsg. Change every 3 days and prn. Apply Moisture Barrier paste to Perineum, R and L buttocks with each incontinence care. Apply Cavilon Skin Barrier to both heels. Cover each heel with Optifoam drsg. Change every 7 days and prn. Apply Cavilon Skin Barrier to clefts of both R and L ears Daily. Pad Oxygen tubing with gauze around Ears. Keep Oxygen tubing loose around Ears. Reposition at least every 2hours or as tolerated. Off-load heels with pillow. APM/CHRISTOPHER Mattress overlay. (2) Leukocytosis Assessment & Plan: leukocytosis 28k on admission trending down resolving wbc on abx wounds unlikely etiology pna ua noted cont abx as per id wbc 12k trending up again imaging reviewed abx changed per Id will follow with recs wbc trending up cxr with v Apparently increased hazy airspace opacity on background of generalized mild interstitial disease. May be an artifact of under distention but could reflect worsening bilateral infiltrates. Stable bibasilar atelectasis and right basilar consolidation thank you (3) Lung mass (4) Protein-calorie malnutrition, severe Assessment & Plan: There is a gastrostomy tube in place. Previously demonstrated nasogastric tube is no longer evident. Bowel gas pattern is unremarkable. No masses or unusual calcifications. There is evidence of a Macedo catheter. There is a right hip prosthesis. There are degenerative changes of the lumbar spine nutritional optimization tube feeds bmi noted alb low DAILY ESTIMATED NEEDS: Needs based on Pulmonary, wounds; 72.5kg 25-30 kcals/kg [id number] total kcals 1.25-1.5 g protein/kg 90-108 g total protein 25-30 mL/kg 9689-2671 total fluid mLs NUTRITION DIAGNOSIS: 1. Increased pro needs r/t wound healing as evidenced by pt adm w/ multiple wounds including unstageable sacral wound, refer to WC eval. 2. Swallowing difficulty r/t dysphagia as evidenced by GT dependent. CURRENT TF:Glucerna 1.5 @ 50ml/hr x 22 hrs (on Dilantin QD) ENTERAL NUTRITION RECOMMENDATIONS: Glucerna 1.5 @55ml/hr x22 hrs (1 hr held before and after Dilantin med) to provide 1210ml, 1815kcal, 100g prot, 918ml free water - Increase goal rate to 55ml/hr to meet 100% est kcal/prot needs - Hold 1 hr before and after Dilantin med - HOB over 30 degrees ADDITIONAL RECOMMENDATIONS: * Wound healing: continue Vit C add KESHIA in 4oz H2O BID via GT * Calibrated bedscale wt for accurate CBW * Check lytes daily w/ TF, replete as needed * Monitor TF tolerance/residuals * DC D5 once TF @ goal (5) Suspected COVID-19 virus infection Assessment & Plan: covid negative Right basilar consolidation and atelectasis, could indicate pneumonia. Minimal left basilar atelectasis Gabino Little October 08, 2019 14:50
[2019-10-08 16:00] VITALS: BP 107/63
--- NOTE | 2019-10-08 17:25 | General Progress Note ---
Assessment/Plan Problem List: (1) Fever ICD Codes: R50.9 - Fever, unspecified SNOMED: 580008385 (2) COPD (chronic obstructive pulmonary disease) ICD Codes: J44.9 - Chronic obstructive pulmonary disease, unspecified SNOMED: 54345243 (3) Severe sepsis ICD Codes: A41.9 - Sepsis, unspecified organism; R65.20 - Severe sepsis without septic shock SNOMED: 13682872 (4) PEG (percutaneous endoscopic gastrostomy) adjustment/replacement/removal ICD Codes: Z43.1 - Encounter for attention to gastrostomy SNOMED: 056947726, 191037572 (5) Protein-calorie malnutrition, severe ICD Codes: E43 - Unspecified severe protein-calorie malnutrition SNOMED: 648078829 (6) Acute febrile illness ICD Codes: R50.9 - Fever, unspecified SNOMED: 873595386 (7) PNA (pneumonia) ICD Codes: J18.9 - Pneumonia, unspecified organism SNOMED: 419666592 (8) Suspected COVID-19 virus infection ICD Codes: Z20.828 - Contact with and (suspected) exposure to other viral communicable diseases SNOMED: 613656204 (9) Congestion secondary to upper respiratory illness Status: progressing Assessment/Plan: positive blood cx pna no change supportive therapy resp insuff malnutrition abx per id sepsis dc planning leukocytosis persistent Subjective ROS Limited/Unobtainable: Yes Allergies: Coded Allergies: PNEUMOCOCCAL VACCINE (Unverified Allergy, Unknown, 10/07/18) Uncoded Allergies: PNA VACCINE (Allergy, Unknown, 09/30/19) Objective Last 24 Hour Vital Signs Date Time Temp Pulse Resp B/P (MAP) Pulse Ox O2 Delivery O2 Flow Rate FiO2 10/08/19 12:00 107/66 10/08/19 12:00 96.8 68 20 108/77 (87) 97 10/08/19 12:00 98 10/08/19 09:00 Nasal Cannula 2.0 10/08/19 08:46 86 107/66 10/08/19 08:00 98.6 86 19 107/66 (80) 97 10/08/19 08:00 97 10/08/19 05:35 130/72 10/08/19 04:00 96 10/08/19 04:00 97.4 92 19 130/72 (91) 97 10/08/19 00:00 74 10/08/19 00:00 97.3 89 18 110/66 (81) 95 10/08/19 00:00 110/66 10/07/19 21:00 Nasal Cannula 2.0 10/07/19 20:00 92 10/07/19 20:00 97.7 91 18 106/59 (75) 94 Intake and Output 10/07/19 10/08/19 19:00 07:00 Intake Total 632.5 ml Output Total 700 ml 1000 ml Balance -67.5 ml -1000 ml IV Total 632.5 ml Output Urine Total 700 ml 1000 ml # Voids 2 # Bowel Movements 1 2 Laboratory Tests 10/08/19 06:00: White Blood Count 18.4H, Red Blood Count 3.15L, Hemoglobin 10.3L, Hematocrit 30.8L, Mean Corpuscular Volume 98, Mean Corpuscular Hemoglobin 32.6H, Mean Corpuscular Hemoglobin Concent 33.3, Red Cell Distribution Width 14.2, Platelet Count 401, Mean Platelet Volume 5.8L, Neutrophils (%) (Auto) , Lymphocytes (%) ( Auto) , Monocytes (%) (Auto) , Eosinophils (%) (Auto) , Basophils (%) (Auto) , Differential Total Cells Counted 100, Neutrophils % (Manual) 61, Lymphocytes % ( Manual) 20, Monocytes % (Manual) 12H, Eosinophils % (Manual) 4H, Basophils % ( Manual) 0, Band Neutrophils 3, Platelet Estimate Adequate, Platelet Morphology Normal, Anisocytosis 1+, Macrocytosis 1+, Sodium Level 138, Potassium Level 4.7 , Chloride Level 99, Carbon Dioxide Level 33H, Anion Gap 6, Blood Urea Nitrogen 15, Creatinine 0.8, Estimat Glomerular Filtration Rate > 60, Glucose Level 83, Calcium Level 10.4H, Total Bilirubin 0.2, Aspartate Amino Transf (AST/SGOT) 52H , Alanine Aminotransferase (ALT/SGPT) 40, Alkaline Phosphatase 240H, Total Protein 8.1, Albumin 2.5L, Globulin 5.6, Albumin/Globulin Ratio 0.4L Height (Feet): 6 Height (Inches): 0.00 Weight (Pounds): 186 Konrad Soares MD October 08, 2019 17:25
[2019-10-08 20:00] VITALS: BP 145/68
[2019-10-08] MEDS: Donepezil 5mg Tab GT SCH (21:10)
[2019-10-09] VITALS: BP 148/75
[2019-10-09] MEDS: Polymyxin B Sulfate 500,000 UNITS in D5W 500ml 550 ML IV SCH ×2 (01:25→12:54)
[2019-10-09 04:00] VITALS: BP 126/60
[2019-10-09] MEDS: NovoLOG Insulin Flexpen SUBQ SCH ×4 (06:01→20:49)
[2019-10-09] MEDS: Piperacillin/Tazobactam 3.375 GM in NS 110 ML IVPB SCH ×3 (06:08→20:47)
[2019-10-09] MEDS: Heparin 5000 units/ml inj SUBQ SCH ×3 (06:09→20:48)
[2019-10-09 08:00] VITALS: BP 134/73
--- NOTE | 2019-10-09 08:44 | Hematology/Onc Progress Note ---
Assessment/Plan Assessment/Plan # Leukocytosis on admission, rule out covid, given snf hx of multiple covid patinets, with pna noted on imaging --> may be due to infection --> per id --> wbc 28-->11.6-->12.1-->18 --> smear is noted --> abx cefepime/azithro-->polymyxin # Hypercalcemia r/o malignancy, r/o myeloma, elevated on admission, may be 2/2 dehydration --> Ca 10.7, pth is wnl, spep is also wnl as is upep --> on iv fluids as per pcp --> renal eval prn --> pth on prior admission was 42 # Multiple lung nodules -- in 2017 2 cm pleural-based masslike opacity containing multiple nodular calcifications andadjacent parenchymal linear density persists in the anterolateral periphery of thelateral segment right middle lobe, unchanged. Adjacent small nodular parenchymaldensities persist, unchanged. --> pulm aware --> consider ct chest once better --> Dr. 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 Subjective Cardiovascular: Denies: no symptoms, chest pain, edema, irregular heart rate, lightheadedness, palpitations, syncope, other Gastrointestinal/Abdominal: Denies: no symptoms, abdomen distended, abdominal pain, black stools, tarry stools, blood in stool, constipated, diarrhea, difficulty swallowing, nausea, poor appetite, poor fluid intake, rectal bleeding , vomiting, other Genitourinary: Denies: no symptoms, burning, discharge, frequency, flank pain, hematuria, incontinence, pain, urgency, other Neurologic/Psychiatric: Denies: no symptoms, anxiety, depressed, emotional problems, headache, numbness, paresthesia, pre-existing deficit, seizure, tingling, tremors, weakness, other Endocrine: Denies: no symptoms, excessive sweating, flushing, intolerance to cold, intolerance to heat, increased hunger, increased thirst, increased urine, unexplained weight gain, unexplained weight loss, other Hematologic/Lymphatic: Denies: no symptoms, anemia, easy bleeding, easy bruising, adenopathy, other Allergies: Coded Allergies: PNEUMOCOCCAL VACCINE (Unverified Allergy, Unknown, 10/07/18) Uncoded Allergies: PNA VACCINE (Allergy, Unknown, 09/30/19) Subjective 10/01 nonverbal, confused, to be npo, tube feeds on hold, no bleeding, meds reviewed 10/02 remains nonverbal, on gtube feeds, labs noted, no bleeding 10/04 labs reviewed, on polymyxin, cont sq heparin q8 hrs, nc 2l, 10/05 labs still pending, gtube feeds ongoing, no bleeding 10/06 remains confused, with glucerna running, labs reviewed, 99.7f overnight 10/07 labs reviewed, no bleeding, on glucerna, no fc 10/08 nonverbal, with gtube, working, nonfunctional, labs ordered Objective Objective Current Medications Medications (Trade) Dose Ordered Sig/Nidhi Route PRN Reason Start Time Stop Time Status Last Admin Dose Admin Acetaminophen (Tylenol) 650 mg Q4H PRN GT Pain/Temp >100.5 10/01/19 03:30 10/30/19 23:29 10/06/19 09:02 Amlodipine Besylate (Norvasc) 10 mg DAILY GT 10/01/19 09:00 10/31/19 08:59 10/08/19 08:46 Ascorbic Acid (Vitamin C) 250 mg BID GT 10/01/19 09:00 10/31/19 08:59 10/08/19 18:00 Clonidine HCl (Catapres Tab) 0.1 mg EVERY 6 HOURS GT 10/01/19 00:00 12/30/19 00:00 10/09/19 06:08 Dextrose (Dextrose 50%) 25 ml Q30M PRN IV Hypoglycemia 09/30/19 22:00 12/29/19 21:59 Dextrose (Dextrose 50%) 50 ml Q30M PRN IV Hypoglycemia 09/30/19 22:00 12/29/19 21:59 Docusate Sodium (Colace) 100 mg TWICE A DAY GT 10/01/19 09:00 10/31/19 08:59 10/08/19 08:47 Donepezil HCl (Aricept) 5 mg BEDTIME GT 10/01/19 21:00 10/31/19 20:59 10/08/19 21:10 Ferrous Sulfate (Feosol) 325 mg BID GT 10/01/19 09:00 12/30/19 08:59 10/08/19 18:00 Heparin Sodium (Porcine) (Heparin 5000 units/ml) 5,000 units EVERY 8 HOURS SUBQ 10/01/19 06:00 11/15/19 05:59 10/09/19 06:09 Insulin Aspart (NovoLOG) BEFORE MEALS AND HS SUBQ 09/30/19 21:51 12/29/19 21:50 10/02/19 21:24 Levetiracetam (Keppra) 500 mg Q12HR GT 10/01/19 09:00 11/15/19 08:59 10/08/19 21:10 Magnesium Hydroxide (Mom) 30 ml DAILY GT 10/01/19 09:00 10/31/19 08:59 10/08/19 08:46 Metoclopramide HCl (Reglan) 5 mg Q6H PRN IVP Nausea & Vomiting 10/02/19 09:45 11/01/19 09:44 Multivitamins (Multivitamins) 1 tab DAILY GT 10/01/19 09:00 10/31/19 08:59 10/08/19 08:46 Phenytoin (Dilantin) 300 mg DAILY GT 10/01/19 09:00 11/15/19 08:59 10/08/19 08:46 Piperacillin Sod/ Tazobactam Sod 3.375 gm/Sodium Chloride 110 ml @ 27.5 mls/hr EVERY 8 HOURS IVPB 10/07/19 15:00 10/12/19 14:59 10/09/19 06:08 Polymyxin B Sulfate 717611 units/Dextrose 550 ml @ 550 mls/hr Q12H IV 10/03/19 13:00 10/10/19 12:59 10/09/19 01:25 Sennosides (Senokot) 8.6 mg DAILY GT 10/01/19 09:00 10/31/19 08:59 10/08/19 08:47 Last 24 Hour Vital Signs Date Time Temp Pulse Resp B/P (MAP) Pulse Ox O2 Delivery O2 Flow Rate FiO2 10/09/19 08:00 97.6 102 20 134/73 (93) 97 10/09/19 06:52 Nasal Cannula 2.0 10/09/19 06:08 126/60 10/09/19 04:00 98.7 95 20 126/60 (82) 94 10/09/19 04:00 96 10/09/19 00:00 148/75 10/09/19 00:00 98.9 104 20 148/75 (99) 94 10/09/19 00:00 110 10/08/19 21:00 Nasal Cannula 2.0 10/08/19 20:00 77 10/08/19 20:00 99.0 98 21 145/68 (93) 94 10/08/19 18:00 107/66 10/08/19 16:00 98 10/08/19 16:00 98.6 63 20 107/63 (78) 97 10/08/19 12:00 107/66 10/08/19 12:00 96.8 68 20 108/77 (87) 97 10/08/19 12:00 98 10/08/19 09:00 Nasal Cannula 2.0 10/08/19 08:46 86 107/66 10/08/19 08:00 98.6 86 19 107/66 (80) 97 10/08/19 08:00 97 10/08/19 05:35 130/72 10/08/19 04:00 96 10/08/19 04:00 97.4 92 19 130/72 (91) 97 10/08/19 00:00 74 10/08/19 00:00 97.3 89 18 110/66 (81) 95 10/08/19 00:00 110/66 10/07/19 21:00 Nasal Cannula 2.0 10/07/19 20:00 92 10/07/19 20:00 97.7 91 18 106/59 (75) 94 10/07/19 17:11 106/56 10/07/19 16:00 98.9 95 20 106/56 (73) 100 10/07/19 15:58 101 10/07/19 12:00 99.9 99 20 112/67 (82) 94 10/07/19 11:46 102 10/07/19 11:32 112/67 10/07/19 09:00 Nasal Cannula 2.0 10/07/19 08:50 98 121/74 Intake and Output 10/08/19 10/09/19 19:00 07:00 Intake Total 200 ml 6260.0 ml Output Total 900 ml Balance 200 ml 5360.0 ml Intake Free Water 100 ml 100 ml IV Total 5610.0 ml Tube Feeding 100 ml 550 ml Output Urine Total 900 ml # Bowel Movements 2 Labs Test 10/07/19 05:50 10/08/19 06:00 White Blood Count 18.0 K/UL (4.8-10.8) 18.4 K/UL (4.8-10.8) Red Blood Count 3.34 M/UL (4.70-6.10) 3.15 M/UL (4.70-6.10) Hemoglobin 10.9 G/DL (14.2-18.0) 10.3 G/DL (14.2-18.0) Hematocrit 32.6 % (42.0-52.0) 30.8 % (42.0-52.0) Mean Corpuscular Volume 98 FL (80-99) 98 FL (80-99) Mean Corpuscular Hemoglobin 32.7 PG (27.0-31.0) 32.6 PG (27.0-31.0) Mean Corpuscular Hemoglobin Concent 33.5 G/DL (32.0-36.0) 33.3 G/DL (32.0-36.0) Red Cell Distribution Width 13.9 % (11.6-14.8) 14.2 % (11.6-14.8) Platelet Count 425 K/UL (150-450) 401 K/UL (150-450) Mean Platelet Volume 5.9 FL (6.5-10.1) 5.8 FL (6.5-10.1) Neutrophils (%) (Auto) % (45.0-75.0) % (45.0-75.0) Lymphocytes (%) (Auto) % (20.0-45.0) % (20.0-45.0) Monocytes (%) (Auto) % (1.0-10.0) % (1.0-10.0) Eosinophils (%) (Auto) % (0.0-3.0) % (0.0-3.0) Basophils (%) (Auto) % (0.0-2.0) % (0.0-2.0) Differential Total Cells Counted 100 100 Neutrophils % (Manual) 51 % (45-75) 61 % (45-75) Lymphocytes % (Manual) 28 % (20-45) 20 % (20-45) Monocytes % (Manual) 16 % (1-10) 12 % (1-10) Eosinophils % (Manual) 1 % (0-3) 4 % (0-3) Basophils % (Manual) 0 % (0-2) 0 % (0-2) Metamyelocytes % 3 % (0-0) Band Neutrophils 1 % (0-8) 3 % (0-8) Platelet Estimate Adequate Adequate Platelet Morphology Normal Normal Hypochromasia 1+ Anisocytosis 1+ 1+ Sodium Level 139 MMOL/L (136-145) 138 MMOL/L (136-145) Potassium Level 4.9 MMOL/L (3.5-5.1) 4.7 MMOL/L (3.5-5.1) Chloride Level 100 MMOL/L (98-107) 99 MMOL/L (98-107) Carbon Dioxide Level 35 MMOL/L (21-32) 33 MMOL/L (21-32) Anion Gap 4 mmol/L (5-15) 6 mmol/L (5-15) Blood Urea Nitrogen 17 mg/dL (7-18) 15 mg/dL (7-18) Creatinine 0.8 MG/DL (0.55-1.30) 0.8 MG/DL (0.55-1.30) Estimat Glomerular Filtration Rate > 60 mL/min (>60) > 60 mL/min (>60) Glucose Level 88 MG/DL (74-106) 83 MG/DL (74-106) Calcium Level 10.2 MG/DL (8.5-10.1) 10.4 MG/DL (8.5-10.1) Total Bilirubin 0.2 MG/DL (0.2-1.0) 0.2 MG/DL (0.2-1.0) Aspartate Amino Transf (AST/SGOT) 52 U/L (15-37) 52 U/L (15-37) Alanine Aminotransferase (ALT/SGPT) 40 U/L (12-78) 40 U/L (12-78) Alkaline Phosphatase 236 U/L (46-116) 240 U/L (46-116) Total Protein 8.2 G/DL (6.4-8.2) 8.1 G/DL (6.4-8.2) Albumin 2.5 G/DL (3.4-5.0) 2.5 G/DL (3.4-5.0) Globulin 5.7 g/dL 5.6 g/dL Albumin/Globulin Ratio 0.4 (1.0-2.7) 0.4 (1.0-2.7) Macrocytosis 1+ Height (Feet): 6 Height (Inches): 0.00 Weight (Pounds): 186 Objective vitals: noted gen: nonverbal pulm: ctab, some crackles left side, nc+ heent; nc, at, eomi Cv: rrr, no mgr abd: soft, nt, nd +gtube ext: no cce Ignacio Ponce MD October 09, 2019 08:44
[2019-10-09] MEDS: Milk of Magnesia 30ml Ud GT SCH (09:21)
[2019-10-09] MEDS: levETIRAcetam 500mg/5ml Liquid GT SCH ×2 (09:22→20:46)
[2019-10-09] MEDS: Sennosides 8.6mg tab GT SCH (09:22)
[2019-10-09] MEDS: Ascorbic Acid 500mg tab GT SCH ×2 (09:22→17:27)
[2019-10-09] MEDS: Docusate 100mg/10ml Liq GT SCH ×2 (09:22→17:27)
[2019-10-09] MEDS: Phenytoin Susp 100mg/4ml GT SCH (09:22)
[2019-10-09] MEDS: Ferrous Sulfate 300 MG/5 ML UDC GT SCH ×2 (09:22→17:27)
--- NOTE | 2019-10-09 10:43 | Pulmonology Progress Note ---
Subjective ROS Limited/Unobtainable: Yes Interval Events: None new Constitutional: Denies: fever HEENT: Repors: no symptoms Respiratory: Reports: dry cough, shortness of breath Cardiovascular: Reports: no symptoms Gastrointestinal/Abdominal: Reports: no symptoms Allergies: Coded Allergies: PNEUMOCOCCAL VACCINE (Unverified Allergy, Unknown, 10/07/18) Uncoded Allergies: PNA VACCINE (Allergy, Unknown, 09/30/19) All Systems: reviewed and negative except above Objective Last 24 Hour Vital Signs Date Time Temp Pulse Resp B/P (MAP) Pulse Ox O2 Delivery O2 Flow Rate FiO2 10/09/19 09:22 102 134/73 10/09/19 08:00 97.6 102 20 134/73 (93) 97 10/09/19 06:52 Nasal Cannula 2.0 10/09/19 06:08 126/60 10/09/19 04:00 98.7 95 20 126/60 (82) 94 10/09/19 04:00 96 10/09/19 00:00 148/75 10/09/19 00:00 98.9 104 20 148/75 (99) 94 10/09/19 00:00 110 10/08/19 21:00 Nasal Cannula 2.0 10/08/19 20:00 77 10/08/19 20:00 99.0 98 21 145/68 (93) 94 10/08/19 18:00 107/66 10/08/19 16:00 98 10/08/19 16:00 98.6 63 20 107/63 (78) 97 10/08/19 12:00 107/66 10/08/19 12:00 96.8 68 20 108/77 (87) 97 10/08/19 12:00 98 Intake and Output 10/08/19 10/09/19 19:00 07:00 Intake Total 200 ml 6260.0 ml Output Total 900 ml Balance 200 ml 5360.0 ml Intake Free Water 100 ml 100 ml IV Total 5610.0 ml Tube Feeding 100 ml 550 ml Output Urine Total 900 ml # Bowel Movements 2 General Appearance: no acute distress HEENT: mucous membranes moist Respiratory/Chest: chest wall non-tender, decreased breath sounds Cardiovascular: normal peripheral pulses, normal rate Abdomen: soft, non tender, other - GT feeding Extremities: no edema Neurologic/Psychiatric: aphasia, other - opens eyes Microbiology Date/Time Source Procedure Growth Status 10/07/19 15:45 Nasopharynx Coronavirus COVID-19 PCR ([facility]) - Final Complete Current Medications Medications (Trade) Dose Ordered Sig/Nidhi Route PRN Reason Start Time Stop Time Status Last Admin Dose Admin Acetaminophen (Tylenol) 650 mg Q4H PRN GT Pain/Temp >100.5 10/01/19 03:30 10/30/19 23:29 10/06/19 09:02 Amlodipine Besylate (Norvasc) 10 mg DAILY GT 10/01/19 09:00 10/31/19 08:59 10/09/19 09:22 Ascorbic Acid (Vitamin C) 250 mg BID GT 10/01/19 09:00 10/31/19 08:59 10/09/19 09:22 Clonidine HCl (Catapres Tab) 0.1 mg EVERY 6 HOURS GT 10/01/19 00:00 12/30/19 00:00 10/09/19 06:08 Dextrose (Dextrose 50%) 25 ml Q30M PRN IV Hypoglycemia 09/30/19 22:00 12/29/19 21:59 Dextrose (Dextrose 50%) 50 ml Q30M PRN IV Hypoglycemia 09/30/19 22:00 12/29/19 21:59 Docusate Sodium (Colace) 100 mg TWICE A DAY GT 10/01/19 09:00 10/31/19 08:59 10/09/19 09:22 Donepezil HCl (Aricept) 5 mg BEDTIME GT 10/01/19 21:00 10/31/19 20:59 10/08/19 21:10 Ferrous Sulfate (Feosol) 325 mg BID GT 10/01/19 09:00 12/30/19 08:59 10/09/19 09:22 Heparin Sodium (Porcine) (Heparin 5000 units/ml) 5,000 units EVERY 8 HOURS SUBQ 10/01/19 06:00 11/15/19 05:59 10/09/19 06:09 Insulin Aspart (NovoLOG) BEFORE MEALS AND HS SUBQ 09/30/19 21:51 12/29/19 21:50 10/02/19 21:24 Levetiracetam (Keppra) 500 mg Q12HR GT 10/01/19 09:00 11/15/19 08:59 10/09/19 09:22 Magnesium Hydroxide (Mom) 30 ml DAILY GT 10/01/19 09:00 10/31/19 08:59 10/09/19 09:21 Metoclopramide HCl (Reglan) 5 mg Q6H PRN IVP Nausea & Vomiting 10/02/19 09:45 11/01/19 09:44 Multivitamins (Multivitamins) 1 tab DAILY GT 10/01/19 09:00 10/31/19 08:59 10/09/19 09:22 Phenytoin (Dilantin) 300 mg DAILY GT 10/01/19 09:00 11/15/19 08:59 10/09/19 09:22 Piperacillin Sod/ Tazobactam Sod 3.375 gm/Sodium Chloride 110 ml @ 27.5 mls/hr EVERY 8 HOURS IVPB 10/07/19 15:00 10/12/19 14:59 10/09/19 06:08 Polymyxin B Sulfate 192430 units/Dextrose 550 ml @ 550 mls/hr Q12H IV 10/03/19 13:00 10/10/19 12:59 10/09/19 01:25 Sennosides (Senokot) 8.6 mg DAILY GT 10/01/19 09:00 10/31/19 08:59 10/09/19 09:22 Assessment/Plan Assessment/Plan IMPRESSION: 1. Right lung pneumonia. 2. halfway resident. 3. Recent hospitalization at acute hospital. 4. Diabetes mellitus. 5. Hypertension. 6. COPD. 7. Pacemaker. DISCUSSION: Continue broad-spectrum antibiotics. Continue oxygen, pulmonary hygiene. I will follow carefully. COVID 19 pcr x 1 negative Saturating well on 2L/min O2 Kam Mathis Omar Syed MD October 09, 2019 10:43
--- NOTE | 2019-10-09 10:50 | General Progress Note ---
Assessment/Plan Status: progressing Assessment/Plan: 1. Hypertension. 2. Diabetes. 3. COPD. 4. History of pacemaker placement. 5. Dementia. 6. gastroparesis reglan GTF GT flushes repeat labs pending dc will fu Subjective ROS Limited/Unobtainable: No Allergies: Coded Allergies: PNEUMOCOCCAL VACCINE (Unverified Allergy, Unknown, 10/07/18) Uncoded Allergies: PNA VACCINE (Allergy, Unknown, 09/30/19) Objective Last 24 Hour Vital Signs Date Time Temp Pulse Resp B/P (MAP) Pulse Ox O2 Delivery O2 Flow Rate FiO2 10/09/19 09:22 102 134/73 10/09/19 08:00 97.6 102 20 134/73 (93) 97 10/09/19 06:52 Nasal Cannula 2.0 10/09/19 06:08 126/60 10/09/19 04:00 98.7 95 20 126/60 (82) 94 10/09/19 04:00 96 10/09/19 00:00 148/75 10/09/19 00:00 98.9 104 20 148/75 (99) 94 10/09/19 00:00 110 10/08/19 21:00 Nasal Cannula 2.0 10/08/19 20:00 77 10/08/19 20:00 99.0 98 21 145/68 (93) 94 10/08/19 18:00 107/66 10/08/19 16:00 98 10/08/19 16:00 98.6 63 20 107/63 (78) 97 10/08/19 12:00 107/66 10/08/19 12:00 96.8 68 20 108/77 (87) 97 10/08/19 12:00 98 Intake and Output 10/08/19 10/09/19 19:00 07:00 Intake Total 200 ml 6260.0 ml Output Total 900 ml Balance 200 ml 5360.0 ml Intake Free Water 100 ml 100 ml IV Total 5610.0 ml Tube Feeding 100 ml 550 ml Output Urine Total 900 ml # Bowel Movements 2 Height (Feet): 6 Height (Inches): 0.00 Weight (Pounds): 186 General Appearance: alert EENT: normal ENT inspection Neck: supple Cardiovascular: normal rate Respiratory/Chest: decreased breath sounds Abdomen: normal bowel sounds, non tender, soft Extremities: non-tender Vosoghi,Terence MD October 09, 2019 10:50
--- NOTE | 2019-10-09 11:36 | Cardiac Electrophysiology PN ---
Assessment/Plan Assessment/Plan 1. Sinus tachycardia due to pneumonia and dehydration. Improved on Abx and iv fluids that was DCed 2. Hypertension on amlodipine 10 mg daily and Clonidine 0.1 qid. 3. Shortness of breath, fever, and high white count. On IV antibiotic and ruled out for COVID 4. History of seizures, on Keppra. 5. Dysphagia, s/P PEG 6. Hypernatremia and dehydration. Resolved DW RN Subjective Subjective Off isolation as 2 Covid are negative on 10/01 and 10/07/19. In SR in NAD Objective Last 24 Hour Vital Signs Date Time Temp Pulse Resp B/P (MAP) Pulse Ox O2 Delivery O2 Flow Rate FiO2 10/09/19 09:22 102 134/73 10/09/19 08:55 97 10/09/19 08:00 97.6 102 20 134/73 (93) 97 10/09/19 06:52 Nasal Cannula 2.0 10/09/19 06:08 126/60 10/09/19 04:00 98.7 95 20 126/60 (82) 94 10/09/19 04:00 96 10/09/19 00:00 148/75 10/09/19 00:00 98.9 104 20 148/75 (99) 94 10/09/19 00:00 110 10/08/19 21:00 Nasal Cannula 2.0 10/08/19 20:00 77 10/08/19 20:00 99.0 98 21 145/68 (93) 94 10/08/19 18:00 107/66 10/08/19 16:00 98 10/08/19 16:00 98.6 63 20 107/63 (78) 97 10/08/19 12:00 107/66 10/08/19 12:00 96.8 68 20 108/77 (87) 97 10/08/19 12:00 98 Intake and Output 10/08/19 10/09/19 19:00 07:00 Intake Total 200 ml 6260.0 ml Output Total 900 ml Balance 200 ml 5360.0 ml Intake Free Water 100 ml 100 ml IV Total 5610.0 ml Tube Feeding 100 ml 550 ml Output Urine Total 900 ml # Bowel Movements 2 Microbiology Date/Time Source Procedure Growth Status 10/07/19 15:45 Nasopharynx Coronavirus COVID-19 PCR ([facility]) - Final Complete Objective HEAD AND NECK: No JVD. LUNGS: Coarse rhonchi. CARDIOVASCULAR: Regular S1 and S2 with no gallop. ABDOMEN: Status post G-tube. EXTREMITIES: No pitting edema. Sajan Campbell MD October 09, 2019 11:36
[2019-10-09 11:43] VITALS: BP 131/64
--- NOTE | 2019-10-09 14:12 | Infectious Diseases Prog Note ---
Assessment/Plan Assessment/Plan IMPRESSION: 1. MDR Acinetobacter sepsis 2. Pneumonia. Negative COVID19 X 3 3. Unstageable pressure ulcer that doesn't seem to be infected . 4. Hypernatremia. 5. Anemia. 6. Advanced dementia. 7. History of diverticulosis. 8. Gastrostomy status. 9. Leukocytosis 10 Phelebitis & cellulitis of R arm RECOMMENDATION: continue Polymyxin B & Zosyn Start on IV Vancomycin R arm venous duplex Discontinue Droplet isolation We will follow up cultures Subjective ROS Limited/Unobtainable: Yes Allergies: Coded Allergies: PNEUMOCOCCAL VACCINE (Unverified Allergy, Unknown, 10/07/18) Uncoded Allergies: PNA VACCINE (Allergy, Unknown, 09/30/19) Objective Vital Signs Last 24 Hour Vital Signs Date Time Temp Pulse Resp B/P (MAP) Pulse Ox O2 Delivery O2 Flow Rate FiO2 10/09/19 12:20 131/64 10/09/19 11:43 98.6 103 20 131/64 (86) 94 10/09/19 09:22 102 134/73 10/09/19 08:55 97 10/09/19 08:00 97.6 102 20 134/73 (93) 97 10/09/19 06:52 Nasal Cannula 2.0 10/09/19 06:08 126/60 10/09/19 04:00 98.7 95 20 126/60 (82) 94 10/09/19 04:00 96 10/09/19 00:00 148/75 10/09/19 00:00 98.9 104 20 148/75 (99) 94 10/09/19 00:00 110 10/08/19 21:00 Nasal Cannula 2.0 10/08/19 20:00 77 10/08/19 20:00 99.0 98 21 145/68 (93) 94 10/08/19 18:00 107/66 10/08/19 16:00 98 10/08/19 16:00 98.6 63 20 107/63 (78) 97 Height (Feet): 6 Height (Inches): 0.00 Weight (Pounds): 186 HEENT: mucous membranes moist Respiratory/Chest: lungs clear Cardiovascular: tachycardia Abdomen: soft, non tender, other - GT feeding Extremities: no edema Skin: other - erythema, induration of right forearm, site of previous IV line Neurologic/Psychiatric: aphasia, other - opens eyes Microbiology Date/Time Source Procedure Growth Status 10/07/19 15:45 Nasopharynx Coronavirus COVID-19 PCR (BRENDA) - Final Complete Current Medications Medications (Trade) Dose Ordered Sig/Nidhi Route PRN Reason Start Time Stop Time Status Last Admin Dose Admin Acetaminophen (Tylenol) 650 mg Q4H PRN GT Pain/Temp >100.5 10/01/19 03:30 10/30/19 23:29 10/06/19 09:02 Amlodipine Besylate (Norvasc) 10 mg DAILY GT 10/01/19 09:00 10/31/19 08:59 10/09/19 09:22 Ascorbic Acid (Vitamin C) 250 mg BID GT 10/01/19 09:00 10/31/19 08:59 10/09/19 09:22 Clonidine HCl (Catapres Tab) 0.1 mg EVERY 6 HOURS GT 10/01/19 00:00 12/30/19 00:00 10/09/19 12:20 Dextrose (Dextrose 50%) 25 ml Q30M PRN IV Hypoglycemia 09/30/19 22:00 12/29/19 21:59 Dextrose (Dextrose 50%) 50 ml Q30M PRN IV Hypoglycemia 09/30/19 22:00 12/29/19 21:59 Docusate Sodium (Colace) 100 mg TWICE A DAY GT 10/01/19 09:00 10/31/19 08:59 10/09/19 09:22 Donepezil HCl (Aricept) 5 mg BEDTIME GT 10/01/19 21:00 10/31/19 20:59 10/08/19 21:10 Ferrous Sulfate (Feosol) 325 mg BID GT 10/01/19 09:00 12/30/19 08:59 10/09/19 09:22 Heparin Sodium (Porcine) (Heparin 5000 units/ml) 5,000 units EVERY 8 HOURS SUBQ 10/01/19 06:00 11/15/19 05:59 10/09/19 13:34 Insulin Aspart (NovoLOG) BEFORE MEALS AND HS SUBQ 09/30/19 21:51 12/29/19 21:50 10/02/19 21:24 Levetiracetam (Keppra) 500 mg Q12HR GT 10/01/19 09:00 11/15/19 08:59 10/09/19 09:22 Magnesium Hydroxide (Mom) 30 ml DAILY GT 10/01/19 09:00 10/31/19 08:59 10/09/19 09:21 Metoclopramide HCl (Reglan) 5 mg Q6H PRN IVP Nausea & Vomiting 10/02/19 09:45 11/01/19 09:44 Multivitamins (Multivitamins) 1 tab DAILY GT 10/01/19 09:00 10/31/19 08:59 10/09/19 09:22 Phenytoin (Dilantin) 300 mg DAILY GT 10/01/19 09:00 11/15/19 08:59 10/09/19 09:22 Piperacillin Sod/ Tazobactam Sod 3.375 gm/Sodium Chloride 110 ml @ 27.5 mls/hr EVERY 8 HOURS IVPB 10/07/19 15:00 10/12/19 14:59 10/09/19 13:32 Polymyxin B Sulfate 809356 units/Dextrose 550 ml @ 550 mls/hr Q12H IV 10/03/19 13:00 10/10/19 12:59 10/09/19 12:54 Sennosides (Senokot) 8.6 mg DAILY GT 10/01/19 09:00 10/31/19 08:59 10/09/19 09:22 Curtis Farah MD October 09, 2019 14:12
[2019-10-09 16:00] VITALS: BP 133/84
[2019-10-09] MEDS ORDERED: Vancomycin 1.5gm/NS Premix IVPB ONE (16:00)
--- NOTE | 2019-10-09 16:26 | General Progress Note ---
Assessment/Plan Problem List: (1) Fever ICD Codes: R50.9 - Fever, unspecified SNOMED: 948536702 (2) COPD (chronic obstructive pulmonary disease) ICD Codes: J44.9 - Chronic obstructive pulmonary disease, unspecified SNOMED: 71885820 (3) Severe sepsis ICD Codes: A41.9 - Sepsis, unspecified organism; R65.20 - Severe sepsis without septic shock SNOMED: 88930834 (4) PEG (percutaneous endoscopic gastrostomy) adjustment/replacement/removal ICD Codes: Z43.1 - Encounter for attention to gastrostomy SNOMED: 358382741, 459773841 (5) Protein-calorie malnutrition, severe ICD Codes: E43 - Unspecified severe protein-calorie malnutrition SNOMED: 122172442 (6) Acute febrile illness ICD Codes: R50.9 - Fever, unspecified SNOMED: 142310509 (7) PNA (pneumonia) ICD Codes: J18.9 - Pneumonia, unspecified organism SNOMED: 108990056 (8) Suspected COVID-19 virus infection ICD Codes: Z20.828 - Contact with and (suspected) exposure to other viral communicable diseases SNOMED: 202555670 (9) Congestion secondary to upper respiratory illness Status: progressing Assessment/Plan: positive blood cx pna no change supportive therapy resp insuff malnutrition abx per id leukocyto Subjective ROS Limited/Unobtainable: Yes Allergies: Coded Allergies: PNEUMOCOCCAL VACCINE (Unverified Allergy, Unknown, 10/07/18) Uncoded Allergies: PNA VACCINE (Allergy, Unknown, 09/30/19) Objective Last 24 Hour Vital Signs Date Time Temp Pulse Resp B/P (MAP) Pulse Ox O2 Delivery O2 Flow Rate FiO2 10/09/19 12:41 103 10/09/19 12:20 131/64 10/09/19 11:43 98.6 103 20 131/64 (86) 94 10/09/19 09:22 102 134/73 10/09/19 08:55 97 10/09/19 08:00 97.6 102 20 134/73 (93) 97 10/09/19 06:52 Nasal Cannula 2.0 10/09/19 06:08 126/60 10/09/19 04:00 98.7 95 20 126/60 (82) 94 10/09/19 04:00 96 10/09/19 00:00 148/75 5/7/20 00:00 98.9 104 20 148/75 (99) 94 10/09/19 00:00 110 10/08/19 21:00 Nasal Cannula 2.0 10/08/19 20:00 77 10/08/19 20:00 99.0 98 21 145/68 (93) 94 10/08/19 18:00 107/66 Intake and Output 10/08/19 10/09/19 19:00 07:00 Intake Total 200 ml 6260.0 ml Output Total 900 ml Balance 200 ml 5360.0 ml Intake Free Water 100 ml 100 ml IV Total 5610.0 ml Tube Feeding 100 ml 550 ml Output Urine Total 900 ml # Bowel Movements 2 Height (Feet): 6 Height (Inches): 0.00 Weight (Pounds): 186 Konrad Soares MD October 09, 2019 16:26
--- NOTE | 2019-10-09 17:55 | Surgery Progress Note ---
Surgery Progress Note Subjective Additional Comments no acute events Objective Last 24 Hour Vital Signs Date Time Temp Pulse Resp B/P (MAP) Pulse Ox O2 Delivery O2 Flow Rate FiO2 10/09/19 17:27 133/84 10/09/19 16:00 98.2 82 20 133/84 (100) 98 10/09/19 12:41 103 10/09/19 12:20 131/64 10/09/19 11:43 98.6 103 20 131/64 (86) 94 10/09/19 09:22 102 134/73 10/09/19 08:55 97 10/09/19 08:00 97.6 102 20 134/73 (93) 97 10/09/19 06:52 Nasal Cannula 2.0 10/09/19 06:08 126/60 10/09/19 04:00 98.7 95 20 126/60 (82) 94 10/09/19 04:00 96 10/09/19 00:00 148/75 10/09/19 00:00 98.9 104 20 148/75 (99) 94 10/09/19 00:00 110 10/08/19 21:00 Nasal Cannula 2.0 10/08/19 20:00 77 10/08/19 20:00 99.0 98 21 145/68 (93) 94 10/08/19 18:00 107/66 I&O Intake and Output 10/08/19 10/09/19 19:00 07:00 Intake Total 200 ml 6260.0 ml Output Total 900 ml Balance 200 ml 5360.0 ml Intake Free Water 100 ml 100 ml IV Total 5610.0 ml Tube Feeding 100 ml 550 ml Output Urine Total 900 ml # Bowel Movements 2 Dressing: other Wound: other Drains: other Cardiovascular: RSR Respiratory: decreased breath sounds Abdomen: soft, non-tender, present bowel sounds Extremities: no tenderness, no cyanosis Plan Problems: (1) Decubitus skin ulcer Assessment & Plan: Pt presented on admission with multiple pressure injuries. Resolving pressure injury cleft of R ear. [place] epithelial at base of wound with marginal erythema. Non-blanching erythema cleft of L ear. Pt is receiving o2 via nasal cannula, and oxygen tubing padded with gauze to minimize pressure and friction to both ears. Unstageable Sacral Pressure Injury(L)9.4cm x (W)7.8cm. Base of wound is 75% necrotic and and soft, 20% surrounding slough,Marginal erythema and macerated borders. Mild odor noted. Small amt seropurulent exudate.Periwound,skin tone is darker without elevation in skin temp, fluctuance or induration.small area of hyperpigmentation noted to L gluteal cheek. L Heel extending into plantar aspect is boggy with non-blanching erythema. Non-blanching erythema R heel without induration or fluctuance. Xerosis skin both feet. Tx.Plan: Cleanse Sacral wound with Saline. Apply Therahoney. Apply Moisture Barrier Paste periwound. Cover with Optifoam Drsg. Change every 3 days and prn. Apply Moisture Barrier paste to Perineum, R and L buttocks with each incontinence care. Apply Cavilon Skin Barrier to both heels. Cover each heel with Optifoam drsg. Change every 7 days and prn. Apply Cavilon Skin Barrier to clefts of both R and L ears Daily. Pad Oxygen tubing with gauze around Ears. Keep Oxygen tubing loose around Ears. Reposition at least every 2hours or as tolerated. Off-load heels with pillow. APM/CHRISTOPHER Mattress overlay. (2) Leukocytosis Assessment & Plan: leukocytosis 28k on admission trending down resolving wbc on abx wounds unlikely etiology pna ua noted cont abx as per id wbc 12k trending up again imaging reviewed abx changed per Id will follow with recs wbc trending up cxr with v Apparently increased hazy airspace opacity on background of generalized mild interstitial disease. May be an artifact of under distention but could reflect worsening bilateral infiltrates. Stable bibasilar atelectasis and right basilar consolidation thank you (3) Lung mass (4) Protein-calorie malnutrition, severe Assessment & Plan: There is a gastrostomy tube in place. Previously demonstrated nasogastric tube is no longer evident. Bowel gas pattern is unremarkable. No masses or unusual calcifications. There is evidence of a Macedo catheter. There is a right hip prosthesis. There are degenerative changes of the lumbar spine nutritional optimization tube feeds bmi noted alb low DAILY ESTIMATED NEEDS: Needs based on Pulmonary, wounds; 72.5kg 25-30 kcals/kg 7171-4587 total kcals 1.25-1.5 g protein/kg 90-108 g total protein 25-30 mL/kg 4945-0401 total fluid mLs NUTRITION DIAGNOSIS: 1. Increased pro needs r/t wound healing as evidenced by pt adm w/ multiple wounds including unstageable sacral wound, refer to WC eval. 2. Swallowing difficulty r/t dysphagia as evidenced by GT dependent. CURRENT TF:Glucerna 1.5 @ 50ml/hr x 22 hrs (on Dilantin QD) ENTERAL NUTRITION RECOMMENDATIONS: Glucerna 1.5 @55ml/hr x22 hrs (1 hr held before and after Dilantin med) to provide 1210ml, 1815kcal, 100g prot, 918ml free water - Increase goal rate to 55ml/hr to meet 100% est kcal/prot needs - Hold 1 hr before and after Dilantin med - HOB over 30 degrees ADDITIONAL RECOMMENDATIONS: * Wound healing: continue Vit C add KESHIA in 4oz H2O BID via GT * Calibrated bedscale wt for accurate CBW * Check lytes daily w/ TF, replete as needed * Monitor TF tolerance/residuals * DC D5 once TF @ goal (5) Suspected COVID-19 virus infection Assessment & Plan: covid negative Right basilar consolidation and atelectasis, could indicate pneumonia. Minimal left basilar atelectasis Gabino Little October 09, 2019 17:55
[2019-10-09 20:00] VITALS: BP 125/83
[2019-10-09] MEDS: Donepezil 5mg Tab GT SCH (20:46)
[2019-10-10] VITALS: BP 122/80
[2019-10-10] MEDS: Polymyxin B Sulfate 500,000 UNITS in D5W 500ml 550 ML IV SCH ×2 (00:59→12:25)
[2019-10-10 04:00] VITALS: BP 129/72
[2019-10-10] MEDS: Vancomycin 1gm/D5W 275ml IVPB SCH ×4 (04:05→16:47)
[2019-10-10] MEDS: Piperacillin/Tazobactam 3.375 GM in NS 110 ML IVPB SCH ×3 (06:05→21:06)
[2019-10-10] MEDS: Heparin 5000 units/ml inj SUBQ SCH ×3 (06:12→21:27)
[2019-10-10] MEDS: NovoLOG Insulin Flexpen SUBQ SCH ×4 (06:13→21:00)
[2019-10-10 06:39] LABS: HEMATOCRIT 31.3 % (42.0-52.0); HEMOGLOBIN 10.6 G/DL (14.2-18.0); MEAN CORPUSCULAR VOLUME 97 FL (80-99); PLATELET COUNT 416 K/UL (150-450); RED BLOOD COUNT 3.23 M/UL (4.70-6.10); RED CELL DISTRIBUTION WIDTH 13.9 % (11.6-14.8); WHITE BLOOD COUNT 19.3 K/UL (4.8-10.8)
[2019-10-10 07:53] VITALS: BP 116/67
[2019-10-10] MEDS: Ferrous Sulfate 300 MG/5 ML UDC GT SCH ×2 (08:20→18:11)
[2019-10-10] MEDS: Docusate 100mg/10ml Liq GT SCH ×2 (08:20→18:11)
[2019-10-10] MEDS: Phenytoin Susp 100mg/4ml GT SCH (08:20)
[2019-10-10] MEDS: Sennosides 8.6mg tab GT SCH (08:20)
[2019-10-10] MEDS: Milk of Magnesia 30ml Ud GT SCH (08:20)
[2019-10-10] MEDS: levETIRAcetam 500mg/5ml Liquid GT SCH ×2 (08:20→21:13)
[2019-10-10] MEDS: Ascorbic Acid 500mg tab GT SCH ×2 (08:21→18:10)
--- NOTE | 2019-10-10 10:11 | General Progress Note ---
Assessment/Plan Status: progressing Assessment/Plan: 1. Hypertension. 2. Diabetes. 3. COPD. 4. History of pacemaker placement. 5. Dementia. 6. gastroparesis reglan GTF GT flushes repeat labs pending dc will fu Subjective ROS Limited/Unobtainable: No Allergies: Coded Allergies: PNEUMOCOCCAL VACCINE (Unverified Allergy, Unknown, 10/07/18) Uncoded Allergies: PNA VACCINE (Allergy, Unknown, 09/30/19) Objective Last 24 Hour Vital Signs Date Time Temp Pulse Resp B/P (MAP) Pulse Ox O2 Delivery O2 Flow Rate FiO2 10/10/19 08:21 81 116/67 10/10/19 07:53 98.2 81 20 116/67 (83) 97 10/10/19 06:43 Nasal Cannula 2.0 10/10/19 06:05 129/72 10/10/19 04:00 98.1 102 18 129/72 (91) 99 10/10/19 04:00 97 10/10/19 00:59 122/80 10/10/19 00:00 108 10/10/19 00:00 97.7 104 18 122/80 (94) 96 10/09/19 21:00 Nasal Cannula 2.0 10/09/19 20:04 98 Nasal Cannula 2.0 28 10/09/19 20:00 97.9 98 20 125/83 (97) 95 10/09/19 20:00 97 10/09/19 17:27 133/84 10/09/19 16:00 98.2 82 20 133/84 (100) 98 10/09/19 15:18 102 10/09/19 12:41 103 10/09/19 12:20 131/64 10/09/19 11:43 98.6 103 20 131/64 (86) 94 Intake and Output 10/09/19 10/10/19 19:00 07:00 Intake Total 1685.0 ml 1585.000 ml Output Total 1200 ml Balance 485.0 ml 1585.000 ml Intake Free Water 200 ml 100 ml IV Total 935.0 ml 935.000 ml Tube Feeding 550 ml 550 ml Output Urine Total 1200 ml # Voids 3 # Bowel Movements 2 Laboratory Tests 10/10/19 05:15: White Blood Count 19.3H, Red Blood Count 3.23L, Hemoglobin 10.6L, Hematocrit 31.3L, Mean Corpuscular Volume 97, Mean Corpuscular Hemoglobin 32.8H, Mean Corpuscular Hemoglobin Concent 33.9, Red Cell Distribution Width 13.9, Platelet Count 416, Mean Platelet Volume 6.3L, Neutrophils (%) (Auto) , Lymphocytes (%) ( Auto) , Monocytes (%) (Auto) , Eosinophils (%) (Auto) , Basophils (%) (Auto) , Differential Total Cells Counted 100, Neutrophils % (Manual) 75, Lymphocytes % ( Manual) 20, Monocytes % (Manual) 3, Eosinophils % (Manual) 2, Basophils % ( Manual) 0, Band Neutrophils 0, Nucleated Red Blood Cells 16, Platelet Estimate Adequate, Platelet Morphology Normal, Hypochromasia 1+ Height (Feet): 6 Height (Inches): 0.00 Weight (Pounds): 186 General Appearance: alert EENT: normal ENT inspection Neck: supple Cardiovascular: normal rate Respiratory/Chest: decreased breath sounds Abdomen: normal bowel sounds, non tender, soft Extremities: non-tender Terence Anton MD October 10, 2019 10:09
--- NOTE | 2019-10-10 10:12 | Diagnostic Imaging Report ---
Indication: Right arm swelling and pain Technique: Grayscale and duplex images of the right upper extremity veins Comparison: none Findings: On the right, grayscale and duplex images demonstrate no evidence of intraluminal thrombus. Normal phasic Doppler waveforms. Patent upstream internal jugular and subclavian veins. Normal compressibility. The cephalic vein is very small. Impression: Negative for upper extremity venous thrombosis
--- NOTE | 2019-10-10 11:05 | Pulmonology Progress Note ---
Subjective ROS Limited/Unobtainable: No Interval Events: None new Constitutional: Denies: fever HEENT: Repors: no symptoms Respiratory: Reports: dry cough, shortness of breath Cardiovascular: Reports: no symptoms Gastrointestinal/Abdominal: Reports: no symptoms Allergies: Coded Allergies: PNEUMOCOCCAL VACCINE (Unverified Allergy, Unknown, 10/07/18) Uncoded Allergies: PNA VACCINE (Allergy, Unknown, 09/30/19) All Systems: reviewed and negative except above Objective Last 24 Hour Vital Signs Date Time Temp Pulse Resp B/P (MAP) Pulse Ox O2 Delivery O2 Flow Rate FiO2 10/10/19 08:21 81 116/67 10/10/19 08:15 92 10/10/19 07:53 98.2 81 20 116/67 (83) 97 10/10/19 06:43 Nasal Cannula 2.0 10/10/19 06:05 129/72 10/10/19 04:00 98.1 102 18 129/72 (91) 99 10/10/19 04:00 97 10/10/19 00:59 122/80 10/10/19 00:00 108 10/10/19 00:00 97.7 104 18 122/80 (94) 96 10/09/19 21:00 Nasal Cannula 2.0 10/09/19 20:04 98 Nasal Cannula 2.0 28 10/09/19 20:00 97.9 98 20 125/83 (97) 95 10/09/19 20:00 97 10/09/19 17:27 133/84 10/09/19 16:00 98.2 82 20 133/84 (100) 98 10/09/19 15:18 102 10/09/19 12:41 103 10/09/19 12:20 131/64 10/09/19 11:43 98.6 103 20 131/64 (86) 94 Intake and Output 10/09/19 10/10/19 19:00 07:00 Intake Total 1685.0 ml 1585.000 ml Output Total 1200 ml Balance 485.0 ml 1585.000 ml Intake Free Water 200 ml 100 ml IV Total 935.0 ml 935.000 ml Tube Feeding 550 ml 550 ml Output Urine Total 1200 ml # Voids 3 # Bowel Movements 2 General Appearance: no acute distress HEENT: mucous membranes moist Respiratory/Chest: chest wall non-tender, decreased breath sounds Cardiovascular: normal peripheral pulses, normal rate Abdomen: soft, non tender, other - GT feeding Extremities: no edema Skin: other - erythema, induration of right forearm, site of previous IV line Neurologic/Psychiatric: aphasia, other - opens eyes Microbiology Date/Time Source Procedure Growth Status 10/07/19 15:45 Nasopharynx Coronavirus COVID-19 PCR (BRENDA) - Final Complete Laboratory Tests 10/10/19 05:15: White Blood Count 19.3H, Red Blood Count 3.23L, Hemoglobin 10.6L, Hematocrit 31.3L, Mean Corpuscular Volume 97, Mean Corpuscular Hemoglobin 32.8H, Mean Corpuscular Hemoglobin Concent 33.9, Red Cell Distribution Width 13.9, Platelet Count 416, Mean Platelet Volume 6.3L, Neutrophils (%) (Auto) , Lymphocytes (%) ( Auto) , Monocytes (%) (Auto) , Eosinophils (%) (Auto) , Basophils (%) (Auto) , Differential Total Cells Counted 100, Neutrophils % (Manual) 75, Lymphocytes % ( Manual) 20, Monocytes % (Manual) 3, Eosinophils % (Manual) 2, Basophils % ( Manual) 0, Band Neutrophils 0, Nucleated Red Blood Cells 16, Platelet Estimate Adequate, Platelet Morphology Normal, Hypochromasia 1+ Current Medications Medications (Trade) Dose Ordered Sig/Nidhi Route PRN Reason Start Time Stop Time Status Last Admin Dose Admin Acetaminophen (Tylenol) 650 mg Q4H PRN GT Pain/Temp >100.5 10/01/19 03:30 10/30/19 23:29 10/06/19 09:02 Amlodipine Besylate (Norvasc) 10 mg DAILY GT 10/01/19 09:00 10/31/19 08:59 10/10/19 08:21 Ascorbic Acid (Vitamin C) 250 mg BID GT 10/01/19 09:00 10/31/19 08:59 10/10/19 08:21 Clonidine HCl (Catapres Tab) 0.1 mg EVERY 6 HOURS GT 10/01/19 00:00 12/30/19 00:00 10/10/19 06:05 Dextrose (Dextrose 50%) 25 ml Q30M PRN IV Hypoglycemia 09/30/19 22:00 12/29/19 21:59 Dextrose (Dextrose 50%) 50 ml Q30M PRN IV Hypoglycemia 09/30/19 22:00 12/29/19 21:59 Docusate Sodium (Colace) 100 mg TWICE A DAY GT 10/01/19 09:00 10/31/19 08:59 10/10/19 08:20 Donepezil HCl (Aricept) 5 mg BEDTIME GT 10/01/19 21:00 10/31/19 20:59 10/09/19 20:46 Ferrous Sulfate (Feosol) 325 mg BID GT 10/01/19 09:00 12/30/19 08:59 10/10/19 08:20 Heparin Sodium (Porcine) (Heparin 5000 units/ml) 5,000 units EVERY 8 HOURS SUBQ 10/01/19 06:00 11/15/19 05:59 10/10/19 06:12 Insulin Aspart (NovoLOG) BEFORE MEALS AND HS SUBQ 09/30/19 21:51 12/29/19 21:50 10/10/19 06:13 Levetiracetam (Keppra) 500 mg Q12HR GT 10/01/19 09:00 11/15/19 08:59 10/10/19 08:20 Magnesium Hydroxide (Mom) 30 ml DAILY GT 10/01/19 09:00 10/31/19 08:59 10/10/19 08:20 Metoclopramide HCl (Reglan) 5 mg Q6H PRN IVP Nausea & Vomiting 10/02/19 09:45 11/01/19 09:44 Multivitamins (Multivitamins) 1 tab DAILY GT 10/01/19 09:00 10/31/19 08:59 10/10/19 08:21 Phenytoin (Dilantin) 300 mg DAILY GT 10/01/19 09:00 11/15/19 08:59 10/10/19 08:20 Piperacillin Sod/ Tazobactam Sod 3.375 gm/Sodium Chloride 110 ml @ 27.5 mls/hr EVERY 8 HOURS IVPB 10/07/19 15:00 10/12/19 14:59 10/10/19 06:05 Polymyxin B Sulfate 380011 units/Dextrose 550 ml @ 550 mls/hr Q12H IV 10/03/19 13:00 10/12/19 12:59 10/10/19 00:59 Sennosides (Senokot) 8.6 mg DAILY GT 10/01/19 09:00 10/31/19 08:59 10/10/19 08:20 Vancomycin HCl (Vanco rx to dose) 1 ea DAILY PRN MISC Per rx protocol 10/09/19 14:15 11/08/19 14:14 Vancomycin HCl 1 gm/Dextrose 275 ml @ 183.708 mls/hr Q12H IVPB 10/10/19 04:00 10/15/19 03:59 10/10/19 04:05 Assessment/Plan Assessment/Plan IMPRESSION: 1. Right lung pneumonia. 2. [facility] resident. 3. Recent hospitalization at acute hospital. 4. Diabetes mellitus. 5. Hypertension. 6. COPD. 7. Pacemaker. DISCUSSION: Continue broad-spectrum antibiotics. Continue oxygen, pulmonary hygiene. I will follow carefully. COVID 19 pcr x 1 negative Saturating well on 2L/min O2 Kam Mathis Omar Syed MD October 10, 2019 11:05
--- NOTE | 2019-10-10 11:08 | Hematology/Onc Progress Note ---
Assessment/Plan Assessment/Plan # Leukocytosis on admission, rule out covid, given snf hx of multiple covid patinets, with pna noted on imaging --> may be due to infection --> per id --> wbc 28-->11.6-->12.1-->18->19 --> smear is noted --> abx cefepime/azithro-->polymyxin # Hypercalcemia r/o malignancy, r/o myeloma, elevated on admission, may be 2/2 dehydration --> Ca 10.7, pth is wnl, spep is also wnl as is upep --> on iv fluids as per pcp --> renal eval prn --> pth on prior admission was 42 # Multiple lung nodules -- in 2017 2 cm pleural-based masslike opacity containing multiple nodular calcifications andadjacent parenchymal linear density persists in the anterolateral periphery of thelateral segment right middle lobe, unchanged. Adjacent small nodular parenchymaldensities persist, unchanged. --> pulm aware --> consider ct chest once better --> Dr. 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 Subjective Constitutional: Denies: no symptoms, chills, fever, malaise, weakness, other HEENT: Denies: no symptoms, eye pain, blurred vision, tearing, double vision, ear pain, ear discharge, nose pain, nose congestion, throat pain, throat swelling, mouth pain, mouth swelling, other Cardiovascular: Denies: no symptoms, chest pain, edema, irregular heart rate, lightheadedness, palpitations, syncope, other Genitourinary: Denies: no symptoms, burning, discharge, frequency, flank pain, hematuria, incontinence, pain, urgency, other Allergies: Coded Allergies: PNEUMOCOCCAL VACCINE (Unverified Allergy, Unknown, 10/07/18) Uncoded Allergies: PNA VACCINE (Allergy, Unknown, 09/30/19) Subjective 10/01 nonverbal, confused, to be npo, tube feeds on hold, no bleeding, meds reviewed 10/02 remains nonverbal, on gtube feeds, labs noted, no bleeding 10/04 labs reviewed, on polymyxin, cont sq heparin q8 hrs, nc 2l, 10/05 labs still pending, gtube feeds ongoing, no bleeding 10/06 remains confused, with glucerna running, labs reviewed, 99.7f overnight 10/07 labs reviewed, no bleeding, on glucerna, no fc 10/08 nonverbal, with gtube, working, nonfunctional, labs ordered 10/09 no bleeding, no night sweats, no major changes, no fc Objective Objective Current Medications Medications (Trade) Dose Ordered Sig/Nidhi Route PRN Reason Start Time Stop Time Status Last Admin Dose Admin Acetaminophen (Tylenol) 650 mg Q4H PRN GT Pain/Temp >100.5 10/01/19 03:30 10/30/19 23:29 10/06/19 09:02 Amlodipine Besylate (Norvasc) 10 mg DAILY GT 10/01/19 09:00 10/31/19 08:59 10/10/19 08:21 Ascorbic Acid (Vitamin C) 250 mg BID GT 10/01/19 09:00 10/31/19 08:59 10/10/19 08:21 Clonidine HCl (Catapres Tab) 0.1 mg EVERY 6 HOURS GT 10/01/19 00:00 12/30/19 00:00 10/10/19 06:05 Dextrose (Dextrose 50%) 25 ml Q30M PRN IV Hypoglycemia 09/30/19 22:00 12/29/19 21:59 Dextrose (Dextrose 50%) 50 ml Q30M PRN IV Hypoglycemia 09/30/19 22:00 12/29/19 21:59 Docusate Sodium (Colace) 100 mg TWICE A DAY GT 10/01/19 09:00 10/31/19 08:59 5/8/20 08:20 Donepezil HCl (Aricept) 5 mg BEDTIME GT 10/01/19 21:00 10/31/19 20:59 10/09/19 20:46 Ferrous Sulfate (Feosol) 325 mg BID GT 10/01/19 09:00 12/30/19 08:59 10/10/19 08:20 Heparin Sodium (Porcine) (Heparin 5000 units/ml) 5,000 units EVERY 8 HOURS SUBQ 10/01/19 06:00 11/15/19 05:59 10/10/19 06:12 Insulin Aspart (NovoLOG) BEFORE MEALS AND HS SUBQ 09/30/19 21:51 12/29/19 21:50 10/10/19 06:13 Levetiracetam (Keppra) 500 mg Q12HR GT 10/01/19 09:00 11/15/19 08:59 10/10/19 08:20 Magnesium Hydroxide (Mom) 30 ml DAILY GT 10/01/19 09:00 10/31/19 08:59 10/10/19 08:20 Metoclopramide HCl (Reglan) 5 mg Q6H PRN IVP Nausea & Vomiting 10/02/19 09:45 11/01/19 09:44 Multivitamins (Multivitamins) 1 tab DAILY GT 10/01/19 09:00 10/31/19 08:59 10/10/19 08:21 Phenytoin (Dilantin) 300 mg DAILY GT 10/01/19 09:00 11/15/19 08:59 10/10/19 08:20 Piperacillin Sod/ Tazobactam Sod 3.375 gm/Sodium Chloride 110 ml @ 27.5 mls/hr EVERY 8 HOURS IVPB 10/07/19 15:00 10/12/19 14:59 10/10/19 06:05 Polymyxin B Sulfate 225948 units/Dextrose 550 ml @ 550 mls/hr Q12H IV 10/03/19 13:00 10/12/19 12:59 10/10/19 00:59 Sennosides (Senokot) 8.6 mg DAILY GT 10/01/19 09:00 10/31/19 08:59 10/10/19 08:20 Vancomycin HCl (Vanco rx to dose) 1 ea DAILY PRN MISC Per rx protocol 10/09/19 14:15 11/08/19 14:14 Vancomycin HCl 1 gm/Dextrose 275 ml @ 183.708 mls/hr Q12H IVPB 10/10/19 04:00 10/15/19 03:59 10/10/19 04:05 Last 24 Hour Vital Signs Date Time Temp Pulse Resp B/P (MAP) Pulse Ox O2 Delivery O2 Flow Rate FiO2 10/10/19 08:21 81 116/67 10/10/19 08:15 92 10/10/19 07:53 98.2 81 20 116/67 (83) 97 10/10/19 06:43 Nasal Cannula 2.0 10/10/19 06:05 129/72 10/10/19 04:00 98.1 102 18 129/72 (91) 99 10/10/19 04:00 97 10/10/19 00:59 122/80 10/10/19 00:00 108 10/10/19 00:00 97.7 104 18 122/80 (94) 96 10/09/19 21:00 Nasal Cannula 2.0 10/09/19 20:04 98 Nasal Cannula 2.0 28 10/09/19 20:00 97.9 98 20 125/83 (97) 95 10/09/19 20:00 97 10/09/19 17:27 133/84 10/09/19 16:00 98.2 82 20 133/84 (100) 98 10/09/19 15:18 102 10/09/19 12:41 103 10/09/19 12:20 131/64 10/09/19 11:43 98.6 103 20 131/64 (86) 94 10/09/19 09:22 102 134/73 10/09/19 08:55 97 10/09/19 08:00 97.6 102 20 134/73 (93) 97 10/09/19 06:52 Nasal Cannula 2.0 10/09/19 06:08 126/60 10/09/19 04:00 98.7 95 20 126/60 (82) 94 10/09/19 04:00 96 10/09/19 00:00 148/75 10/09/19 00:00 98.9 104 20 148/75 (99) 94 10/09/19 00:00 110 10/08/19 21:00 Nasal Cannula 2.0 10/08/19 20:00 77 10/08/19 20:00 99.0 98 21 145/68 (93) 94 10/08/19 18:00 107/66 10/08/19 16:00 98 10/08/19 16:00 98.6 63 20 107/63 (78) 97 10/08/19 12:00 107/66 10/08/19 12:00 96.8 68 20 108/77 (87) 97 10/08/19 12:00 98 Intake and Output 10/09/19 10/10/19 19:00 07:00 Intake Total 1685.0 ml 1585.000 ml Output Total 1200 ml Balance 485.0 ml 1585.000 ml Intake Free Water 200 ml 100 ml IV Total 935.0 ml 935.000 ml Tube Feeding 550 ml 550 ml Output Urine Total 1200 ml # Voids 3 # Bowel Movements 2 Labs Test 10/08/19 06:00 10/10/19 05:15 White Blood Count 18.4 K/UL (4.8-10.8) 19.3 K/UL (4.8-10.8) Red Blood Count 3.15 M/UL (4.70-6.10) 3.23 M/UL (4.70-6.10) Hemoglobin 10.3 G/DL (14.2-18.0) 10.6 G/DL (14.2-18.0) Hematocrit 30.8 % (42.0-52.0) 31.3 % (42.0-52.0) Mean Corpuscular Volume 98 FL (80-99) 97 FL (80-99) Mean Corpuscular Hemoglobin 32.6 PG (27.0-31.0) 32.8 PG (27.0-31.0) Mean Corpuscular Hemoglobin Concent 33.3 G/DL (32.0-36.0) 33.9 G/DL (32.0-36.0) Red Cell Distribution Width 14.2 % (11.6-14.8) 13.9 % (11.6-14.8) Platelet Count 401 K/UL (150-450) 416 K/UL (150-450) Mean Platelet Volume 5.8 FL (6.5-10.1) 6.3 FL (6.5-10.1) Neutrophils (%) (Auto) % (45.0-75.0) % (45.0-75.0) Lymphocytes (%) (Auto) % (20.0-45.0) % (20.0-45.0) Monocytes (%) (Auto) % (1.0-10.0) % (1.0-10.0) Eosinophils (%) (Auto) % (0.0-3.0) % (0.0-3.0) Basophils (%) (Auto) % (0.0-2.0) % (0.0-2.0) Differential Total Cells Counted 100 100 Neutrophils % (Manual) 61 % (45-75) 75 % (45-75) Lymphocytes % (Manual) 20 % (20-45) 20 % (20-45) Monocytes % (Manual) 12 % (1-10) 3 % (1-10) Eosinophils % (Manual) 4 % (0-3) 2 % (0-3) Basophils % (Manual) 0 % (0-2) 0 % (0-2) Band Neutrophils 3 % (0-8) 0 % (0-8) Platelet Estimate Adequate Adequate Platelet Morphology Normal Normal Anisocytosis 1+ Macrocytosis 1+ Sodium Level 138 MMOL/L (136-145) Potassium Level 4.7 MMOL/L (3.5-5.1) Chloride Level 99 MMOL/L (98-107) Carbon Dioxide Level 33 MMOL/L (21-32) Anion Gap 6 mmol/L (5-15) Blood Urea Nitrogen 15 mg/dL (7-18) Creatinine 0.8 MG/DL (0.55-1.30) Estimat Glomerular Filtration Rate > 60 mL/min (>60) Glucose Level 83 MG/DL (74-106) Calcium Level 10.4 MG/DL (8.5-10.1) Total Bilirubin 0.2 MG/DL (0.2-1.0) Aspartate Amino Transf (AST/SGOT) 52 U/L (15-37) Alanine Aminotransferase (ALT/SGPT) 40 U/L (12-78) Alkaline Phosphatase 240 U/L (46-116) Total Protein 8.1 G/DL (6.4-8.2) Albumin 2.5 G/DL (3.4-5.0) Globulin 5.6 g/dL Albumin/Globulin Ratio 0.4 (1.0-2.7) Nucleated Red Blood Cells 16 /100 WBC Hypochromasia 1+ Height (Feet): 6 Height (Inches): 0.00 Weight (Pounds): 186 Objective vitals: noted gen: nonverbal pulm: ctab, some crackles left side, nc+ heent; nc, at, eomi Cv: rrr, no mgr abd: soft, nt, nd +gtube ext: no cce Ignacio Ponce MD October 10, 2019 11:08
[2019-10-10 12:00] VITALS: BP 112/60
--- NOTE | 2019-10-10 12:15 | Infectious Diseases Prog Note ---
Assessment/Plan Assessment/Plan IMPRESSION: 1. MDR Acinetobacter sepsis 2. Pneumonia. Negative COVID19 X 3 3. Unstageable pressure ulcer that doesn't seem to be infected . 4. Hypernatremia. 5. Anemia. 6. Advanced dementia. 7. History of diverticulosis. 8. Gastrostomy status. 9. Leukocytosis 10 Phlebitis & cellulitis of R arm RECOMMENDATION: continue Polymyxin B & Zosyn Continue IV Vancomycin R arm venous duplex: No DVT Discontinue Droplet isolation We will follow up CXR Subjective ROS Limited/Unobtainable: Yes Constitutional: Denies: fever Allergies: Coded Allergies: PNEUMOCOCCAL VACCINE (Unverified Allergy, Unknown, 10/07/18) Uncoded Allergies: PNA VACCINE (Allergy, Unknown, 09/30/19) Objective Vital Signs Last 24 Hour Vital Signs Date Time Temp Pulse Resp B/P (MAP) Pulse Ox O2 Delivery O2 Flow Rate FiO2 10/10/19 08:21 81 116/67 10/10/19 08:15 92 10/10/19 07:53 98.2 81 20 116/67 (83) 97 10/10/19 06:43 Nasal Cannula 2.0 10/10/19 06:05 129/72 10/10/19 04:00 98.1 102 18 129/72 (91) 99 10/10/19 04:00 97 10/10/19 00:59 122/80 10/10/19 00:00 108 10/10/19 00:00 97.7 104 18 122/80 (94) 96 10/09/19 21:00 Nasal Cannula 2.0 10/09/19 20:04 98 Nasal Cannula 2.0 28 10/09/19 20:00 97.9 98 20 125/83 (97) 95 10/09/19 20:00 97 10/09/19 17:27 133/84 10/09/19 16:00 98.2 82 20 133/84 (100) 98 10/09/19 15:18 102 10/09/19 12:41 103 10/09/19 12:20 131/64 Height (Feet): 6 Height (Inches): 0.00 Weight (Pounds): 186 General Appearance: no acute distress HEENT: mucous membranes moist Respiratory/Chest: lungs clear, other - oxygen by nasal cannula Cardiovascular: normal rate Abdomen: soft, non tender, other - GT feeding Extremities: no edema Skin: other - erythema, cord like induration in R forearm Microbiology Date/Time Source Procedure Growth Status 10/07/19 15:45 Nasopharynx Coronavirus COVID-19 PCR ([facility]) - Final Complete Laboratory Tests Test 10/10/19 05:15 White Blood Count 19.3 K/UL (4.8-10.8) H Red Blood Count 3.23 M/UL (4.70-6.10) L Hemoglobin 10.6 G/DL (14.2-18.0) L Hematocrit 31.3 % (42.0-52.0) L Mean Corpuscular Volume 97 FL (80-99) Mean Corpuscular Hemoglobin 32.8 PG (27.0-31.0) H Mean Corpuscular Hemoglobin Concent 33.9 G/DL (32.0-36.0) Red Cell Distribution Width 13.9 % (11.6-14.8) Platelet Count 416 K/UL (150-450) Mean Platelet Volume 6.3 FL (6.5-10.1) L Neutrophils (%) (Auto) % (45.0-75.0) Lymphocytes (%) (Auto) % (20.0-45.0) Monocytes (%) (Auto) % (1.0-10.0) Eosinophils (%) (Auto) % (0.0-3.0) Basophils (%) (Auto) % (0.0-2.0) Differential Total Cells Counted 100 Neutrophils % (Manual) 75 % (45-75) Lymphocytes % (Manual) 20 % (20-45) Monocytes % (Manual) 3 % (1-10) Eosinophils % (Manual) 2 % (0-3) Basophils % (Manual) 0 % (0-2) Band Neutrophils 0 % (0-8) Nucleated Red Blood Cells 16 /100 WBC Platelet Estimate Adequate Platelet Morphology Normal Hypochromasia 1+ Current Medications Medications (Trade) Dose Ordered Sig/Nidhi Route PRN Reason Start Time Stop Time Status Last Admin Dose Admin Acetaminophen (Tylenol) 650 mg Q4H PRN GT Pain/Temp >100.5 10/01/19 03:30 10/30/19 23:29 10/06/19 09:02 Amlodipine Besylate (Norvasc) 10 mg DAILY GT 10/01/19 09:00 10/31/19 08:59 10/10/19 08:21 Ascorbic Acid (Vitamin C) 250 mg BID GT 10/01/19 09:00 10/31/19 08:59 10/10/19 08:21 Clonidine HCl (Catapres Tab) 0.1 mg EVERY 6 HOURS GT 10/01/19 00:00 12/30/19 00:00 10/10/19 06:05 Dextrose (Dextrose 50%) 25 ml Q30M PRN IV Hypoglycemia 09/30/19 22:00 12/29/19 21:59 Dextrose (Dextrose 50%) 50 ml Q30M PRN IV Hypoglycemia 09/30/19 22:00 12/29/19 21:59 Docusate Sodium (Colace) 100 mg TWICE A DAY GT 10/01/19 09:00 10/31/19 08:59 10/10/19 08:20 Donepezil HCl (Aricept) 5 mg BEDTIME GT 10/01/19 21:00 10/31/19 20:59 10/09/19 20:46 Ferrous Sulfate (Feosol) 325 mg BID GT 10/01/19 09:00 12/30/19 08:59 10/10/19 08:20 Heparin Sodium (Porcine) (Heparin 5000 units/ml) 5,000 units EVERY 8 HOURS SUBQ 10/01/19 06:00 11/15/19 05:59 10/10/19 06:12 Insulin Aspart (NovoLOG) BEFORE MEALS AND HS SUBQ 09/30/19 21:51 12/29/19 21:50 10/10/19 06:13 Levetiracetam (Keppra) 500 mg Q12HR GT 10/01/19 09:00 11/15/19 08:59 10/10/19 08:20 Magnesium Hydroxide (Mom) 30 ml DAILY GT 10/01/19 09:00 10/31/19 08:59 10/10/19 08:20 Metoclopramide HCl (Reglan) 5 mg Q6H PRN IVP Nausea & Vomiting 10/02/19 09:45 11/01/19 09:44 Multivitamins (Multivitamins) 1 tab DAILY GT 10/01/19 09:00 10/31/19 08:59 10/10/19 08:21 Phenytoin (Dilantin) 300 mg DAILY GT 10/01/19 09:00 11/15/19 08:59 10/10/19 08:20 Piperacillin Sod/ Tazobactam Sod 3.375 gm/Sodium Chloride 110 ml @ 27.5 mls/hr EVERY 8 HOURS IVPB 10/07/19 15:00 10/12/19 14:59 10/10/19 06:05 Polymyxin B Sulfate 078730 units/Dextrose 550 ml @ 550 mls/hr Q12H IV 10/03/19 13:00 10/12/19 12:59 10/10/19 00:59 Sennosides (Senokot) 8.6 mg DAILY GT 10/01/19 09:00 10/31/19 08:59 10/10/19 08:20 Vancomycin HCl (Vanco rx to dose) 1 ea DAILY PRN MISC Per rx protocol 10/09/19 14:15 11/08/19 14:14 Vancomycin HCl 1 gm/Dextrose 275 ml @ 183.708 mls/hr Q12H IVPB 10/10/19 04:00 10/15/19 03:59 10/10/19 04:05 Curtis Farah MD October 10, 2019 12:15
--- NOTE | 2019-10-10 13:16 | Surgery Progress Note ---
Surgery Progress Note Subjective Additional Comments persistent leukocytosis ID input appreciated US noted negative Objective Last 24 Hour Vital Signs Date Time Temp Pulse Resp B/P (MAP) Pulse Ox O2 Delivery O2 Flow Rate FiO2 10/10/19 12:17 116/67 10/10/19 12:00 96.7 78 19 112/60 (77) 96 10/10/19 08:21 81 116/67 10/10/19 08:15 92 10/10/19 07:53 98.2 81 20 116/67 (83) 97 10/10/19 06:43 Nasal Cannula 2.0 10/10/19 06:05 129/72 10/10/19 04:00 98.1 102 18 129/72 (91) 99 10/10/19 04:00 97 10/10/19 00:59 122/80 10/10/19 00:00 108 10/10/19 00:00 97.7 104 18 122/80 (94) 96 10/09/19 21:00 Nasal Cannula 2.0 10/09/19 20:04 98 Nasal Cannula 2.0 28 10/09/19 20:00 97.9 98 20 125/83 (97) 95 10/09/19 20:00 97 10/09/19 17:27 133/84 10/09/19 16:00 98.2 82 20 133/84 (100) 98 10/09/19 15:18 102 I&O Intake and Output 10/09/19 10/10/19 19:00 07:00 Intake Total 1685.0 ml 1585.000 ml Output Total 1200 ml Balance 485.0 ml 1585.000 ml Intake Free Water 200 ml 100 ml IV Total 935.0 ml 935.000 ml Tube Feeding 550 ml 550 ml Output Urine Total 1200 ml # Voids 3 # Bowel Movements 2 Dressing: other Wound: other Drains: other Cardiovascular: RSR Respiratory: decreased breath sounds Abdomen: soft, non-tender, present bowel sounds Extremities: no cyanosis Laboratory Tests Test 10/10/19 05:15 White Blood Count 19.3 K/UL (4.8-10.8) H Red Blood Count 3.23 M/UL (4.70-6.10) L Hemoglobin 10.6 G/DL (14.2-18.0) L Hematocrit 31.3 % (42.0-52.0) L Mean Corpuscular Volume 97 FL (80-99) Mean Corpuscular Hemoglobin 32.8 PG (27.0-31.0) H Mean Corpuscular Hemoglobin Concent 33.9 G/DL (32.0-36.0) Red Cell Distribution Width 13.9 % (11.6-14.8) Platelet Count 416 K/UL (150-450) Mean Platelet Volume 6.3 FL (6.5-10.1) L Neutrophils (%) (Auto) % (45.0-75.0) Lymphocytes (%) (Auto) % (20.0-45.0) Monocytes (%) (Auto) % (1.0-10.0) Eosinophils (%) (Auto) % (0.0-3.0) Basophils (%) (Auto) % (0.0-2.0) Differential Total Cells Counted 100 Neutrophils % (Manual) 75 % (45-75) Lymphocytes % (Manual) 20 % (20-45) Monocytes % (Manual) 3 % (1-10) Eosinophils % (Manual) 2 % (0-3) Basophils % (Manual) 0 % (0-2) Band Neutrophils 0 % (0-8) Nucleated Red Blood Cells 16 /100 WBC Platelet Estimate Adequate Platelet Morphology Normal Hypochromasia 1+ Plan Problems: (1) Decubitus skin ulcer Assessment & Plan: Pt presented on admission with multiple pressure injuries. Resolving pressure injury cleft of R ear. Harris epithelial at base of wound with marginal erythema. Non-blanching erythema cleft of L ear. Pt is receiving o2 via nasal cannula, and oxygen tubing padded with gauze to minimize pressure and friction to both ears. Unstageable Sacral Pressure Injury(L)9.4cm x (W)7.8cm. Base of wound is 75% necrotic and and soft, 20% surrounding slough,Marginal erythema and macerated borders. Mild odor noted. Small amt seropurulent exudate.Periwound,skin tone is darker without elevation in skin temp, fluctuance or induration.small area of hyperpigmentation noted to L gluteal cheek. L Heel extending into plantar aspect is boggy with non-blanching erythema. Non-blanching erythema R heel without induration or fluctuance. Xerosis skin both feet. Tx.Plan: Cleanse Sacral wound with Saline. Apply Therahoney. Apply Moisture Barrier Paste periwound. Cover with Optifoam Drsg. Change every 3 days and prn. Apply Moisture Barrier paste to Perineum, R and L buttocks with each incontinence care. Apply Cavilon Skin Barrier to both heels. Cover each heel with Optifoam drsg. Change every 7 days and prn. Apply Cavilon Skin Barrier to clefts of both R and L ears Daily. Pad Oxygen tubing with gauze around Ears. Keep Oxygen tubing loose around Ears. Reposition at least every 2hours or as tolerated. Off-load heels with pillow. APM/CHRISTOPHER Mattress overlay. (2) Leukocytosis Assessment & Plan: leukocytosis 28k on admission trending down resolving wbc on abx wounds unlikely etiology pna ua noted cont abx as per id wbc 12k trending up again imaging reviewed abx changed per Id will follow with recs wbc trending up cxr with v Apparently increased hazy airspace opacity on background of generalized mild interstitial disease. May be an artifact of under distention but could reflect worsening bilateral infiltrates. Stable bibasilar atelectasis and right basilar consolidation thank you US On the right, grayscale and duplex images demonstrate no evidence of intraluminal thrombus. Normal phasic Doppler waveforms. Patent upstream internal jugular and subclavian veins. Normal compressibility. The cephalic vein is very small. Impression: Negative for upper extremity venous thrombosis (3) Lung mass (4) Protein-calorie malnutrition, severe Assessment & Plan: There is a gastrostomy tube in place. Previously demonstrated nasogastric tube is no longer evident. Bowel gas pattern is unremarkable. No masses or unusual calcifications. There is evidence of a Macedo catheter. There is a right hip prosthesis. There are degenerative changes of the lumbar spine nutritional optimization tube feeds bmi noted alb low DAILY ESTIMATED NEEDS: Needs based on Pulmonary, wounds; 72.5kg 25-30 kcals/kg 8927-2859 total kcals 1.25-1.5 g protein/kg 90-108 g total protein 25-30 mL/kg 1424-2974 total fluid mLs NUTRITION DIAGNOSIS: 1. Increased pro needs r/t wound healing as evidenced by pt adm w/ multiple wounds including unstageable sacral wound, refer to WC eval. 2. Swallowing difficulty r/t dysphagia as evidenced by GT dependent. CURRENT TF:Glucerna 1.5 @ 50ml/hr x 22 hrs (on Dilantin QD) ENTERAL NUTRITION RECOMMENDATIONS: Glucerna 1.5 @55ml/hr x22 hrs (1 hr held before and after Dilantin med) to provide 1210ml, 1815kcal, 100g prot, 918ml free water - Increase goal rate to 55ml/hr to meet 100% est kcal/prot needs - Hold 1 hr before and after Dilantin med - HOB over 30 degrees ADDITIONAL RECOMMENDATIONS: * Wound healing: continue Vit C add KESHIA in 4oz H2O BID via GT * Calibrated bedscale wt for accurate CBW * Check lytes daily w/ TF, replete as needed * Monitor TF tolerance/residuals * DC D5 once TF @ goal (5) Suspected COVID-19 virus infection Assessment & Plan: covid negative Right basilar consolidation and atelectasis, could indicate pneumonia. Minimal left basilar atelectasis Gabino Little October 10, 2019 13:16
--- NOTE | 2019-10-10 13:36 | Cardiac Electrophysiology PN ---
Assessment/Plan Assessment/Plan 1. Sinus tachy due to pneumonia and dehydration. Improved on Abx and iv fluids that was DCed 2. Hypertension on amlodipine 10 mg daily and Clonidine 0.1 qid. 3. PNA, and high white count. WBC still 19K On IV antibiotic and ruled out for COVID 4. History of seizures, on Keppra. 5. Dysphagia, s/P PEG 6. Hypernatremia and dehydration. Resolved DW RN Subjective Subjective Off isolation. 2 Covid are negative on 10/01 and 10/07/19. In SR. WBC still high 19K Objective Last 24 Hour Vital Signs Date Time Temp Pulse Resp B/P (MAP) Pulse Ox O2 Delivery O2 Flow Rate FiO2 10/10/19 12:28 91 10/10/19 12:17 116/67 10/10/19 12:00 96.7 78 19 112/60 (77) 96 10/10/19 08:21 81 116/67 10/10/19 08:15 92 10/10/19 07:53 98.2 81 20 116/67 (83) 97 10/10/19 06:43 Nasal Cannula 2.0 10/10/19 06:05 129/72 10/10/19 04:00 98.1 102 18 129/72 (91) 99 10/10/19 04:00 97 10/10/19 00:59 122/80 10/10/19 00:00 108 10/10/19 00:00 97.7 104 18 122/80 (94) 96 10/09/19 21:00 Nasal Cannula 2.0 10/09/19 20:04 98 Nasal Cannula 2.0 28 10/09/19 20:00 97.9 98 20 125/83 (97) 95 10/09/19 20:00 97 10/09/19 17:27 133/84 10/09/19 16:00 98.2 82 20 133/84 (100) 98 10/09/19 15:18 102 Intake and Output 10/09/19 10/10/19 19:00 07:00 Intake Total 1685.0 ml 1585.000 ml Output Total 1200 ml Balance 485.0 ml 1585.000 ml Intake Free Water 200 ml 100 ml IV Total 935.0 ml 935.000 ml Tube Feeding 550 ml 550 ml Output Urine Total 1200 ml # Voids 3 # Bowel Movements 2 Laboratory Tests Test 10/10/19 05:15 White Blood Count 19.3 K/UL (4.8-10.8) H Red Blood Count 3.23 M/UL (4.70-6.10) L Hemoglobin 10.6 G/DL (14.2-18.0) L Hematocrit 31.3 % (42.0-52.0) L Mean Corpuscular Volume 97 FL (80-99) Mean Corpuscular Hemoglobin 32.8 PG (27.0-31.0) H Mean Corpuscular Hemoglobin Concent 33.9 G/DL (32.0-36.0) Red Cell Distribution Width 13.9 % (11.6-14.8) Platelet Count 416 K/UL (150-450) Mean Platelet Volume 6.3 FL (6.5-10.1) L Neutrophils (%) (Auto) % (45.0-75.0) Lymphocytes (%) (Auto) % (20.0-45.0) Monocytes (%) (Auto) % (1.0-10.0) Eosinophils (%) (Auto) % (0.0-3.0) Basophils (%) (Auto) % (0.0-2.0) Differential Total Cells Counted 100 Neutrophils % (Manual) 75 % (45-75) Lymphocytes % (Manual) 20 % (20-45) Monocytes % (Manual) 3 % (1-10) Eosinophils % (Manual) 2 % (0-3) Basophils % (Manual) 0 % (0-2) Band Neutrophils 0 % (0-8) Nucleated Red Blood Cells 16 /100 WBC Platelet Estimate Adequate Platelet Morphology Normal Hypochromasia 1+ Microbiology Date/Time Source Procedure Growth Status 10/07/19 15:45 Nasopharynx Coronavirus COVID-19 PCR ([facility]) - Final Complete Objective HEAD AND NECK: No JVD. LUNGS: Coarse rhonchi. CARDIOVASCULAR: Regular S1 and S2 with no gallop. ABDOMEN: Status post G-tube. EXTREMITIES: No pitting edema. Sajan Campbell MD October 10, 2019 13:36
[2019-10-10 16:00] VITALS: BP 114/70
--- NOTE | 2019-10-10 16:30 | General Progress Note ---
Assessment/Plan Problem List: (1) Fever ICD Codes: R50.9 - Fever, unspecified SNOMED: 500551201 (2) COPD (chronic obstructive pulmonary disease) ICD Codes: J44.9 - Chronic obstructive pulmonary disease, unspecified SNOMED: 86459613 (3) Severe sepsis ICD Codes: A41.9 - Sepsis, unspecified organism; R65.20 - Severe sepsis without septic shock SNOMED: 49954645 (4) PEG (percutaneous endoscopic gastrostomy) adjustment/replacement/removal ICD Codes: Z43.1 - Encounter for attention to gastrostomy SNOMED: 622066351, 292460887 (5) Protein-calorie malnutrition, severe ICD Codes: E43 - Unspecified severe protein-calorie malnutrition SNOMED: 329173257 (6) Acute febrile illness ICD Codes: R50.9 - Fever, unspecified SNOMED: 818217111 (7) PNA (pneumonia) ICD Codes: J18.9 - Pneumonia, unspecified organism SNOMED: 939994008 (8) Suspected COVID-19 virus infection ICD Codes: Z20.828 - Contact with and (suspected) exposure to other viral communicable diseases SNOMED: 228241868 (9) Congestion secondary to upper respiratory illness Status: progressing Assessment/Plan: positive blood cx pna worsening leukocytosis resp insuff abx per id Subjective ROS Limited/Unobtainable: Yes Allergies: Coded Allergies: PNEUMOCOCCAL VACCINE (Unverified Allergy, Unknown, 10/07/18) Uncoded Allergies: PNA VACCINE (Allergy, Unknown, 09/30/19) Objective Last 24 Hour Vital Signs Date Time Temp Pulse Resp B/P (MAP) Pulse Ox O2 Delivery O2 Flow Rate FiO2 10/10/19 12:28 91 10/10/19 12:17 116/67 10/10/19 12:00 96.7 78 19 112/60 (77) 96 10/10/19 08:21 81 116/67 10/10/19 08:15 92 10/10/19 07:53 98.2 81 20 116/67 (83) 97 10/10/19 06:43 Nasal Cannula 2.0 10/10/19 06:05 129/72 10/10/19 04:00 98.1 102 18 129/72 (91) 99 10/10/19 04:00 97 10/10/19 00:59 122/80 10/10/19 00:00 108 10/10/19 00:00 97.7 104 18 122/80 (94) 96 10/09/19 21:00 Nasal Cannula 2.0 10/09/19 20:04 98 Nasal Cannula 2.0 28 10/09/19 20:00 97.9 98 20 125/83 (97) 95 10/09/19 20:00 97 10/09/19 17:27 133/84 Intake and Output 10/09/19 10/10/19 19:00 07:00 Intake Total 1685.0 ml 1585.000 ml Output Total 1200 ml Balance 485.0 ml 1585.000 ml Intake Free Water 200 ml 100 ml IV Total 935.0 ml 935.000 ml Tube Feeding 550 ml 550 ml Output Urine Total 1200 ml # Voids 3 # Bowel Movements 2 Laboratory Tests 10/10/19 05:15: White Blood Count 19.3H, Red Blood Count 3.23L, Hemoglobin 10.6L, Hematocrit 31.3L, Mean Corpuscular Volume 97, Mean Corpuscular Hemoglobin 32.8H, Mean Corpuscular Hemoglobin Concent 33.9, Red Cell Distribution Width 13.9, Platelet Count 416, Mean Platelet Volume 6.3L, Neutrophils (%) (Auto) , Lymphocytes (%) ( Auto) , Monocytes (%) (Auto) , Eosinophils (%) (Auto) , Basophils (%) (Auto) , Differential Total Cells Counted 100, Neutrophils % (Manual) 75, Lymphocytes % ( Manual) 20, Monocytes % (Manual) 3, Eosinophils % (Manual) 2, Basophils % ( Manual) 0, Band Neutrophils 0, Nucleated Red Blood Cells 16, Platelet Estimate Adequate, Platelet Morphology Normal, Hypochromasia 1+ Height (Feet): 6 Height (Inches): 0.00 Weight (Pounds): 186 Konrad Soares MD October 10, 2019 16:30
[2019-10-10 20:00] VITALS: BP 100/61
[2019-10-10] MEDS: Donepezil 5mg Tab GT SCH (21:13)
[2019-10-11] VITALS: BP 111/69
[2019-10-11] MEDS: Polymyxin B Sulfate 500,000 UNITS in D5W 500ml 550 ML IV SCH ×2 (00:48→12:08)
[2019-10-11] MEDS: Vancomycin 1gm/D5W 275ml IVPB SCH ×4 (03:20→16:54)
[2019-10-11 03:42] LABS: BASOPHILS % (AUTO) 0.9 % (0.0-2.0); EOSINOPHILS % (AUTO) 5.2 % (0.0-3.0); HEMATOCRIT 29.9 % (42.0-52.0); LYMPHOCYTES % (AUTO) 26.9 % (20.0-45.0); MEAN CORPUSCULAR VOLUME 96 FL (80-99); MONOCYTES % (AUTO) 3.9 % (1.0-10.0); PLATELET COUNT 455 K/UL (150-450); RED BLOOD COUNT 3.11 M/UL (4.70-6.10); RED CELL DISTRIBUTION WIDTH 13.7 % (11.6-14.8); WHITE BLOOD COUNT 12.3 K/UL (4.8-10.8)
[2019-10-11 03:55] LABS: INR 0.9 (0.9-1.1)
[2019-10-11 03:56] LABS: ALANINE AMINOTRANSFERASE 62 U/L (12-78); ALBUMIN 2.4 G/DL (3.4-5.0); ALBUMIN/GLOBULIN RATIO 0.4 (1.0-2.7); ALKALINE PHOSPHATASE 300 U/L (46-116); ANION GAP 4 mmol/L (5-15); ASPARTATE AMINO TRANSFERASE 69 U/L (15-37); BILIRUBIN,TOTAL 0.2 MG/DL (0.2-1.0); BLOOD UREA NITROGEN 19 mg/dL (7-18); CALCIUM 9.9 MG/DL (8.5-10.1); CARBON DIOXIDE 32 MMOL/L (21-32); CHLORIDE 103 MMOL/L (98-107); CREATININE 0.9 MG/DL (0.55-1.30); POTASSIUM 4.5 MMOL/L (3.5-5.1); SODIUM 138 MMOL/L (136-145)
[2019-10-11 04:00] VITALS: BP 119/61
[2019-10-11] MEDS: Piperacillin/Tazobactam 3.375 GM in NS 110 ML IVPB SCH ×2 (05:27→17:43)
[2019-10-11] MEDS: Heparin 5000 units/ml inj SUBQ SCH ×3 (05:29→22:14)
[2019-10-11] MEDS: NovoLOG Insulin Flexpen SUBQ SCH ×4 (05:58→22:14)
[2019-10-11 08:00] VITALS: BP 124/74
[2019-10-11] MEDS: Docusate 100mg/10ml Liq GT SCH ×2 (09:59→17:37)
[2019-10-11] MEDS: Ferrous Sulfate 300 MG/5 ML UDC GT SCH ×2 (10:00→17:37)
[2019-10-11] MEDS: levETIRAcetam 500mg/5ml Liquid GT SCH ×2 (10:00→22:13)
[2019-10-11] MEDS: Milk of Magnesia 30ml Ud GT SCH (10:00)
[2019-10-11] MEDS: Ascorbic Acid 500mg tab GT SCH ×2 (10:01→17:36)
[2019-10-11] MEDS: Sennosides 8.6mg tab GT SCH (10:01)
--- NOTE | 2019-10-11 11:15 | Pulmonology Progress Note ---
Subjective ROS Limited/Unobtainable: Yes Interval Events: None new Constitutional: Denies: fever HEENT: Repors: no symptoms Respiratory: Reports: dry cough, shortness of breath Cardiovascular: Reports: no symptoms Gastrointestinal/Abdominal: Reports: no symptoms Allergies: Coded Allergies: PNEUMOCOCCAL VACCINE (Unverified Allergy, Unknown, 10/07/18) Uncoded Allergies: PNA VACCINE (Allergy, Unknown, 09/30/19) All Systems: reviewed and negative except above Objective Last 24 Hour Vital Signs Date Time Temp Pulse Resp B/P (MAP) Pulse Ox O2 Delivery O2 Flow Rate FiO2 10/11/19 10:00 86 124/74 10/11/19 09:00 Nasal Cannula 2.0 10/11/19 08:00 98.6 86 22 124/74 (91) 98 10/11/19 07:44 85 10/11/19 05:27 119/61 10/11/19 04:00 87 10/11/19 04:00 97.7 85 18 119/61 (80) 98 10/11/19 00:00 77 10/11/19 00:00 97.6 86 18 111/69 (83) 99 10/11/19 00:00 109/69 10/10/19 21:00 Nasal Cannula 2.0 10/10/19 20:00 81 10/10/19 20:00 97.4 83 18 100/61 (74) 100 10/10/19 18:10 114/70 10/10/19 16:00 98.6 60 18 114/70 (85) 97 10/10/19 15:45 91 10/10/19 12:28 91 10/10/19 12:17 116/67 10/10/19 12:00 96.7 78 19 112/60 (77) 96 Intake and Output 10/10/19 10/11/19 19:00 07:00 Intake Total 1735.000 ml Output Total 1020 ml 750 ml Balance 715.000 ml -750 ml Intake Free Water 200 ml IV Total 935.000 ml Tube Feeding 600 ml Output Urine Total 1020 ml 750 ml Stool Total 0 ml General Appearance: no acute distress HEENT: mucous membranes moist Respiratory/Chest: chest wall non-tender, decreased breath sounds Cardiovascular: normal peripheral pulses, normal rate Abdomen: soft, non tender, other - GT feeding Extremities: no edema Skin: other - erythema, cord like induration in R forearm Neurologic/Psychiatric: aphasia, other - opens eyes Laboratory Tests 10/11/19 03:28: White Blood Count 12.3H, Red Blood Count 3.11L, Hemoglobin 10.0L, Hematocrit 29.9L, Mean Corpuscular Volume 96, Mean Corpuscular Hemoglobin 32.2H, Mean Corpuscular Hemoglobin Concent 33.5, Red Cell Distribution Width 13.7, Platelet Count 455H, Mean Platelet Volume 5.7L, Neutrophils (%) (Auto) 63.0, Lymphocytes (%) (Auto) 26.9, Monocytes (%) (Auto) 3.9, Eosinophils (%) (Auto) 5.2H, Basophils (%) (Auto) 0.9, Erythrocyte Sedimentation Rate 110H, Prothrombin Time 10.0, Prothromb Time International Ratio 0.9, Activated Partial Thromboplast Time 42H, Sodium Level 138, Potassium Level 4.5, Chloride Level 103, Carbon Dioxide Level 32, Anion Gap 4L, Blood Urea Nitrogen 19H, Creatinine 0.9, Estimat Glomerular Filtration Rate > 60, Glucose Level 159H, Calcium Level 9.9, Total Bilirubin 0.2, Aspartate Amino Transf (AST/SGOT) 69H, Alanine Aminotransferase (ALT/SGPT) 62, Alkaline Phosphatase 300H, C-Reactive Protein, Quantitative 3.9H, Total Protein 7.9, Albumin 2.4L, Globulin 5.5, Albumin/ Globulin Ratio 0.4L, Vancomycin Level Trough 21.4H Current Medications Medications (Trade) Dose Ordered Sig/Nidhi Route PRN Reason Start Time Stop Time Status Last Admin Dose Admin Acetaminophen (Tylenol) 650 mg Q4H PRN GT Pain/Temp >100.5 10/01/19 03:30 10/30/19 23:29 10/06/19 09:02 Amlodipine Besylate (Norvasc) 10 mg DAILY GT 10/01/19 09:00 10/31/19 08:59 10/11/19 10:00 Ascorbic Acid (Vitamin C) 250 mg BID GT 10/01/19 09:00 10/31/19 08:59 10/11/19 10:01 Clonidine HCl (Catapres Tab) 0.1 mg EVERY 6 HOURS GT 10/01/19 00:00 12/30/19 00:00 10/11/19 05:27 Dextrose (Dextrose 50%) 25 ml Q30M PRN IV Hypoglycemia 09/30/19 22:00 12/29/19 21:59 Dextrose (Dextrose 50%) 50 ml Q30M PRN IV Hypoglycemia 09/30/19 22:00 12/29/19 21:59 Docusate Sodium (Colace) 100 mg TWICE A DAY GT 10/01/19 09:00 10/31/19 08:59 10/11/19 09:59 Donepezil HCl (Aricept) 5 mg BEDTIME GT 10/01/19 21:00 10/31/19 20:59 10/10/19 21:13 Ferrous Sulfate (Feosol) 325 mg BID GT 10/01/19 09:00 12/30/19 08:59 10/11/19 10:00 Heparin Sodium (Porcine) (Heparin 5000 units/ml) 5,000 units EVERY 8 HOURS SUBQ 10/01/19 06:00 11/15/19 05:59 10/11/19 05:29 Insulin Aspart (NovoLOG) BEFORE MEALS AND HS SUBQ 09/30/19 21:51 12/29/19 21:50 10/10/19 06:13 Levetiracetam (Keppra) 500 mg Q12HR GT 10/01/19 09:00 11/15/19 08:59 10/11/19 10:00 Magnesium Hydroxide (Mom) 30 ml DAILY GT 10/01/19 09:00 10/31/19 08:59 10/11/19 10:00 Metoclopramide HCl (Reglan) 5 mg Q6H PRN IVP Nausea & Vomiting 10/02/19 09:45 11/01/19 09:44 Multivitamins (Multivitamins) 1 tab DAILY GT 10/01/19 09:00 10/31/19 08:59 10/11/19 10:00 Phenytoin (Dilantin) 300 mg DAILY GT 10/01/19 09:00 11/15/19 08:59 10/10/19 08:20 Piperacillin Sod/ Tazobactam Sod 3.375 gm/Sodium Chloride 110 ml @ 27.5 mls/hr EVERY 8 HOURS IVPB 10/07/19 15:00 10/12/19 14:59 10/11/19 05:27 Polymyxin B Sulfate 427767 units/Dextrose 550 ml @ 550 mls/hr Q12H IV 10/03/19 13:00 10/12/19 12:59 10/11/19 00:48 Sennosides (Senokot) 8.6 mg DAILY GT 10/01/19 09:00 10/31/19 08:59 10/11/19 10:01 Vancomycin HCl (Vanco rx to dose) 1 ea DAILY PRN MISC Per rx protocol 10/09/19 14:15 11/08/19 14:14 Vancomycin HCl 1 gm/Dextrose 275 ml @ 183.708 mls/hr Q12H IVPB 10/10/19 04:00 10/15/19 03:59 10/11/19 03:20 Assessment/Plan Assessment/Plan IMPRESSION: 1. Right lung pneumonia. 2. [facility] resident. 3. Recent hospitalization at acute hospital. 4. Diabetes mellitus. 5. Hypertension. 6. COPD. 7. Pacemaker. DISCUSSION: Continue broad-spectrum antibiotics. Continue oxygen, pulmonary hygiene. I will follow carefully. COVID 19 pcr x 1 negative Saturating well on 2L/min O2 Kam Mathis Omar Syed MD October 11, 2019 11:15
[2019-10-11 12:00] VITALS: BP 120/58
[2019-10-11] MEDS: Phenytoin Susp 100mg/4ml GT SCH (12:05)
--- NOTE | 2019-10-11 14:36 | Diagnostic Imaging Report ---
EXAM: XR Chest, 1 View CLINICAL HISTORY: INFECT TECHNIQUE: Frontal view of the chest. COMPARISON: Chest x-ray dated 10/06/19 FINDINGS: Lungs: Left infrahilar patchy consolidation, and subsegmental atelectasis versus infiltrates in bilateral lung bases. Pleural space: Unremarkable. The costophrenic angles are sharp. No visible pneumothorax. Heart: Unremarkable. No cardiomegaly. Mediastinum: Unremarkable. Bones/joints: Degenerative changes throughout the visualized spine. Tubes, lines and devices: Telemetry leads overlie the thorax. IMPRESSION: Left infrahilar patchy consolidation, and subsegmental atelectasis versus infiltrates in bilateral lung bases. This is not significantly changed compared to the prior chest x-ray.
--- NOTE | 2019-10-11 14:55 | GI Progress Note ---
Assessment/Plan Problems: (1) Protein-calorie malnutrition, severe ICD Codes: E43 - Unspecified severe protein-calorie malnutrition SNOMED: 687221012 (2) PEG (percutaneous endoscopic gastrostomy) adjustment/replacement/removal ICD Codes: Z43.1 - Encounter for attention to gastrostomy SNOMED: 996329991, 985408089 (3) Dysphagia ICD Codes: R13.10 - Dysphagia, unspecified SNOMED: 81245449, 500957109 (4) Dehydration ICD Codes: E86.0 - Dehydration SNOMED: 45495925 (5) Suspected COVID-19 virus infection ICD Codes: Z20.828 - Contact with and (suspected) exposure to other viral communicable diseases SNOMED: 388070996 Status: unchanged Status Narrative Discussed with Dr. Anton. Assessment/Plan 1. Hypertension. 2. Diabetes. 3. COPD. 4. History of pacemaker placement. 5. Dementia. 6. gastroparesis Anemia reported black tarry stool possibly 2/2 to ferrous sulfate OB stool pending, will consider endoscopy if needed prn transfusions add PPI daily reglan GTF GT flushes repeat labs will fu The patient was seen and examined at bedside and all new and available data was reviewed in the patients chart. I agree with the above findings, impression and plan. (Patient seen earlier today. Signature stamp does not reflect patient encounter time.). - Terence Anton MD Subjective Subjective limited Objective Last 24 Hour Vital Signs Date Time Temp Pulse Resp B/P (MAP) Pulse Ox O2 Delivery O2 Flow Rate FiO2 10/11/19 12:06 120/58 10/11/19 12:00 97.9 93 20 120/58 (78) 97 10/11/19 12:00 93 10/11/19 10:00 86 124/74 10/11/19 09:00 Nasal Cannula 2.0 10/11/19 08:00 98.6 86 22 124/74 (91) 98 10/11/19 07:44 85 10/11/19 05:27 119/61 10/11/19 04:00 87 10/11/19 04:00 97.7 85 18 119/61 (80) 98 10/11/19 00:00 77 10/11/19 00:00 97.6 86 18 111/69 (83) 99 10/11/19 00:00 109/69 5/8/20 21:00 Nasal Cannula 2.0 10/10/19 20:00 81 10/10/19 20:00 97.4 83 18 100/61 (74) 100 10/10/19 18:10 114/70 10/10/19 16:00 98.6 60 18 114/70 (85) 97 10/10/19 15:45 91 Intake and Output 10/10/19 10/11/19 19:00 07:00 Intake Total 1735.000 ml Output Total 1020 ml 750 ml Balance 715.000 ml -750 ml Intake Free Water 200 ml IV Total 935.000 ml Tube Feeding 600 ml Output Urine Total 1020 ml 750 ml Stool Total 0 ml Laboratory Tests Test 10/11/19 03:28 10/11/19 09:20 White Blood Count 12.3 K/UL (4.8-10.8) H Red Blood Count 3.11 M/UL (4.70-6.10) L Hemoglobin 10.0 G/DL (14.2-18.0) L Hematocrit 29.9 % (42.0-52.0) L Mean Corpuscular Volume 96 FL (80-99) Mean Corpuscular Hemoglobin 32.2 PG (27.0-31.0) H Mean Corpuscular Hemoglobin Concent 33.5 G/DL (32.0-36.0) Red Cell Distribution Width 13.7 % (11.6-14.8) Platelet Count 455 K/UL (150-450) H Mean Platelet Volume 5.7 FL (6.5-10.1) L Neutrophils (%) (Auto) 63.0 % (45.0-75.0) Lymphocytes (%) (Auto) 26.9 % (20.0-45.0) Monocytes (%) (Auto) 3.9 % (1.0-10.0) Eosinophils (%) (Auto) 5.2 % (0.0-3.0) H Basophils (%) (Auto) 0.9 % (0.0-2.0) Erythrocyte Sedimentation Rate 110 MM/HR (0-20) H Prothrombin Time 10.0 SEC (9.30-11.50) Prothromb Time International Ratio 0.9 (0.9-1.1) Activated Partial Thromboplast Time 42 SEC (23-33) H Sodium Level 138 MMOL/L (136-145) Potassium Level 4.5 MMOL/L (3.5-5.1) Chloride Level 103 MMOL/L (98-107) Carbon Dioxide Level 32 MMOL/L (21-32) Anion Gap 4 mmol/L (5-15) L Blood Urea Nitrogen 19 mg/dL (7-18) H Creatinine 0.9 MG/DL (0.55-1.30) Estimat Glomerular Filtration Rate > 60 mL/min (>60) Glucose Level 159 MG/DL (74-106) H Calcium Level 9.9 MG/DL (8.5-10.1) Total Bilirubin 0.2 MG/DL (0.2-1.0) Aspartate Amino Transf (AST/SGOT) 69 U/L (15-37) H Alanine Aminotransferase (ALT/SGPT) 62 U/L (12-78) Alkaline Phosphatase 300 U/L (46-116) H C-Reactive Protein, Quantitative 3.9 mg/dL (0.00-0.90) H Total Protein 7.9 G/DL (6.4-8.2) Albumin 2.4 G/DL (3.4-5.0) L Globulin 5.5 g/dL Albumin/Globulin Ratio 0.4 (1.0-2.7) L Vancomycin Level Trough 21.4 ug/mL (5.0-12.0) H Stool Occult Blood Pending Height (Feet): 6 Height (Inches): 0.00 Weight (Pounds): 186 Cleveland Sinha NP October 11, 2019 14:55
--- NOTE | 2019-10-11 15:23 | Cardiac Electrophysiology PN ---
Assessment/Plan Assessment/Plan 1. Sinus tachy due to pneumonia and dehydration. Improved on Abx and iv fluids 2. Hypertension on amlodipine 10 mg daily and Clonidine 0.1 qid. 3. PNA and WBC still 19K On IV antibiotic and ruled out for COVID 4. History of seizures, on Keppra. 5. Dysphagia, s/P PEG 6. Hypernatremia and dehydration. Resolved DW RN Subjective Subjective Off isolation. 2 Covids are negative on 10/01 and 10/07/19. In SR. WBC still high 19K on abx Objective Last 24 Hour Vital Signs Date Time Temp Pulse Resp B/P (MAP) Pulse Ox O2 Delivery O2 Flow Rate FiO2 10/11/19 12:06 120/58 10/11/19 12:00 97.9 93 20 120/58 (78) 97 10/11/19 12:00 93 10/11/19 10:00 86 124/74 10/11/19 09:00 Nasal Cannula 2.0 10/11/19 08:00 98.6 86 22 124/74 (91) 98 10/11/19 07:44 85 10/11/19 05:27 119/61 10/11/19 04:00 87 10/11/19 04:00 97.7 85 18 119/61 (80) 98 10/11/19 00:00 77 10/11/19 00:00 97.6 86 18 111/69 (83) 99 10/11/19 00:00 109/69 10/10/19 21:00 Nasal Cannula 2.0 10/10/19 20:00 81 10/10/19 20:00 97.4 83 18 100/61 (74) 100 10/10/19 18:10 114/70 10/10/19 16:00 98.6 60 18 114/70 (85) 97 10/10/19 15:45 91 Intake and Output 10/10/19 10/11/19 19:00 07:00 Intake Total 1735.000 ml Output Total 1020 ml 750 ml Balance 715.000 ml -750 ml Intake Free Water 200 ml IV Total 935.000 ml Tube Feeding 600 ml Output Urine Total 1020 ml 750 ml Stool Total 0 ml Laboratory Tests Test 10/11/19 03:28 10/11/19 09:20 White Blood Count 12.3 K/UL (4.8-10.8) H Red Blood Count 3.11 M/UL (4.70-6.10) L Hemoglobin 10.0 G/DL (14.2-18.0) L Hematocrit 29.9 % (42.0-52.0) L Mean Corpuscular Volume 96 FL (80-99) Mean Corpuscular Hemoglobin 32.2 PG (27.0-31.0) H Mean Corpuscular Hemoglobin Concent 33.5 G/DL (32.0-36.0) Red Cell Distribution Width 13.7 % (11.6-14.8) Platelet Count 455 K/UL (150-450) H Mean Platelet Volume 5.7 FL (6.5-10.1) L Neutrophils (%) (Auto) 63.0 % (45.0-75.0) Lymphocytes (%) (Auto) 26.9 % (20.0-45.0) Monocytes (%) (Auto) 3.9 % (1.0-10.0) Eosinophils (%) (Auto) 5.2 % (0.0-3.0) H Basophils (%) (Auto) 0.9 % (0.0-2.0) Erythrocyte Sedimentation Rate 110 MM/HR (0-20) H Prothrombin Time 10.0 SEC (9.30-11.50) Prothromb Time International Ratio 0.9 (0.9-1.1) Activated Partial Thromboplast Time 42 SEC (23-33) H Sodium Level 138 MMOL/L (136-145) Potassium Level 4.5 MMOL/L (3.5-5.1) Chloride Level 103 MMOL/L (98-107) Carbon Dioxide Level 32 MMOL/L (21-32) Anion Gap 4 mmol/L (5-15) L Blood Urea Nitrogen 19 mg/dL (7-18) H Creatinine 0.9 MG/DL (0.55-1.30) Estimat Glomerular Filtration Rate > 60 mL/min (>60) Glucose Level 159 MG/DL (74-106) H Calcium Level 9.9 MG/DL (8.5-10.1) Total Bilirubin 0.2 MG/DL (0.2-1.0) Aspartate Amino Transf (AST/SGOT) 69 U/L (15-37) H Alanine Aminotransferase (ALT/SGPT) 62 U/L (12-78) Alkaline Phosphatase 300 U/L (46-116) H C-Reactive Protein, Quantitative 3.9 mg/dL (0.00-0.90) H Total Protein 7.9 G/DL (6.4-8.2) Albumin 2.4 G/DL (3.4-5.0) L Globulin 5.5 g/dL Albumin/Globulin Ratio 0.4 (1.0-2.7) L Vancomycin Level Trough 21.4 ug/mL (5.0-12.0) H Stool Occult Blood Pending Objective HEAD AND NECK: No JVD. LUNGS: Coarse rhonchi. CARDIOVASCULAR: Regular S1 and S2 with no gallop. ABDOMEN: Status post G-tube. EXTREMITIES: No pitting edema. Sajan Campbell MD October 11, 2019 15:23
[2019-10-11 16:00] VITALS: BP 122/67
--- NOTE | 2019-10-11 16:25 | General Progress Note ---
Assessment/Plan Problem List: (1) Fever ICD Codes: R50.9 - Fever, unspecified SNOMED: 885731796 (2) COPD (chronic obstructive pulmonary disease) ICD Codes: J44.9 - Chronic obstructive pulmonary disease, unspecified SNOMED: 31095124 (3) Severe sepsis ICD Codes: A41.9 - Sepsis, unspecified organism; R65.20 - Severe sepsis without septic shock SNOMED: 26132876 (4) PEG (percutaneous endoscopic gastrostomy) adjustment/replacement/removal ICD Codes: Z43.1 - Encounter for attention to gastrostomy SNOMED: 430205190, 127857152 (5) Protein-calorie malnutrition, severe ICD Codes: E43 - Unspecified severe protein-calorie malnutrition SNOMED: 863107059 (6) Acute febrile illness ICD Codes: R50.9 - Fever, unspecified SNOMED: 389134581 (7) PNA (pneumonia) ICD Codes: J18.9 - Pneumonia, unspecified organism SNOMED: 037528525 (8) Suspected COVID-19 virus infection ICD Codes: Z20.828 - Contact with and (suspected) exposure to other viral communicable diseases SNOMED: 166718377 (9) Congestion secondary to upper respiratory illness Status: progressing, unchanged Assessment/Plan: positive blood cx pna not hypoxic afebrile improving leukocytosis resp insuff Subjective ROS Limited/Unobtainable: Yes Allergies: Coded Allergies: PNEUMOCOCCAL VACCINE (Unverified Allergy, Unknown, 10/07/18) Uncoded Allergies: PNA VACCINE (Allergy, Unknown, 09/30/19) Objective Last 24 Hour Vital Signs Date Time Temp Pulse Resp B/P (MAP) Pulse Ox O2 Delivery O2 Flow Rate FiO2 10/11/19 12:06 120/58 10/11/19 12:00 97.9 93 20 120/58 (78) 97 10/11/19 12:00 93 10/11/19 10:00 86 124/74 10/11/19 09:00 Nasal Cannula 2.0 10/11/19 08:00 98.6 86 22 124/74 (91) 98 10/11/19 07:44 85 10/11/19 05:27 119/61 10/11/19 04:00 87 10/11/19 04:00 97.7 85 18 119/61 (80) 98 10/11/19 00:00 77 10/11/19 00:00 97.6 86 18 111/69 (83) 99 10/11/19 00:00 109/69 10/10/19 21:00 Nasal Cannula 2.0 10/10/19 20:00 81 10/10/19 20:00 97.4 83 18 100/61 (74) 100 10/10/19 18:10 114/70 Intake and Output 10/10/19 10/11/19 19:00 07:00 Intake Total 1735.000 ml Output Total 1020 ml 750 ml Balance 715.000 ml -750 ml Intake Free Water 200 ml IV Total 935.000 ml Tube Feeding 600 ml Output Urine Total 1020 ml 750 ml Stool Total 0 ml Laboratory Tests 10/11/19 03:28: White Blood Count 12.3H, Red Blood Count 3.11L, Hemoglobin 10.0L, Hematocrit 29.9L, Mean Corpuscular Volume 96, Mean Corpuscular Hemoglobin 32.2H, Mean Corpuscular Hemoglobin Concent 33.5, Red Cell Distribution Width 13.7, Platelet Count 455H, Mean Platelet Volume 5.7L, Neutrophils (%) (Auto) 63.0, Lymphocytes (%) (Auto) 26.9, Monocytes (%) (Auto) 3.9, Eosinophils (%) (Auto) 5.2H, Basophils (%) (Auto) 0.9, Erythrocyte Sedimentation Rate 110H, Prothrombin Time 10.0, Prothromb Time International Ratio 0.9, Activated Partial Thromboplast Time 42H, Sodium Level 138, Potassium Level 4.5, Chloride Level 103, Carbon Dioxide Level 32, Anion Gap 4L, Blood Urea Nitrogen 19H, Creatinine 0.9, Estimat Glomerular Filtration Rate > 60, Glucose Level 159H, Calcium Level 9.9, Total Bilirubin 0.2, Aspartate Amino Transf (AST/SGOT) 69H, Alanine Aminotransferase (ALT/SGPT) 62, Alkaline Phosphatase 300H, C-Reactive Protein, Quantitative 3.9H, Total Protein 7.9, Albumin 2.4L, Globulin 5.5, Albumin/ Globulin Ratio 0.4L, Vancomycin Level Trough 21.4H 10/11/19 09:20: Stool Occult Blood [Pending] 10/11/19 15:45: Vancomycin Level Trough [Pending] Height (Feet): 6 Height (Inches): 0.00 Weight (Pounds): 186 Konrad Soares MD October 11, 2019 16:25
[2019-10-11] MEDS ORDERED: NS 275ml ONE (17:35)
[2019-10-11] MEDS ORDERED: Tubing IV Secondary IV ONE (17:35)
--- NOTE | 2019-10-11 18:16 | Surgery Progress Note ---
Surgery Progress Note Subjective Additional Comments no acute events Objective Last 24 Hour Vital Signs Date Time Temp Pulse Resp B/P (MAP) Pulse Ox O2 Delivery O2 Flow Rate FiO2 10/11/19 17:36 122/67 10/11/19 16:00 98.0 86 20 122/67 (85) 98 10/11/19 16:00 93 10/11/19 12:06 120/58 10/11/19 12:00 97.9 93 20 120/58 (78) 97 10/11/19 12:00 93 10/11/19 10:00 86 124/74 10/11/19 09:00 Nasal Cannula 2.0 10/11/19 08:00 98.6 86 22 124/74 (91) 98 10/11/19 07:44 85 10/11/19 05:27 119/61 10/11/19 04:00 87 10/11/19 04:00 97.7 85 18 119/61 (80) 98 10/11/19 00:00 77 10/11/19 00:00 97.6 86 18 111/69 (83) 99 10/11/19 00:00 109/69 10/10/19 21:00 Nasal Cannula 2.0 10/10/19 20:00 81 10/10/19 20:00 97.4 83 18 100/61 (74) 100 I&O Intake and Output 10/10/19 10/11/19 19:00 07:00 Intake Total 1735.000 ml Output Total 1020 ml 750 ml Balance 715.000 ml -750 ml Intake Free Water 200 ml IV Total 935.000 ml Tube Feeding 600 ml Output Urine Total 1020 ml 750 ml Stool Total 0 ml Dressing: other Wound: other Drains: other Cardiovascular: RSR Respiratory: decreased breath sounds Abdomen: soft, present bowel sounds Extremities: no cyanosis Laboratory Tests Test 10/11/19 03:28 10/11/19 09:20 10/11/19 15:45 White Blood Count 12.3 K/UL (4.8-10.8) H Red Blood Count 3.11 M/UL (4.70-6.10) L Hemoglobin 10.0 G/DL (14.2-18.0) L Hematocrit 29.9 % (42.0-52.0) L Mean Corpuscular Volume 96 FL (80-99) Mean Corpuscular Hemoglobin 32.2 PG (27.0-31.0) H Mean Corpuscular Hemoglobin Concent 33.5 G/DL (32.0-36.0) Red Cell Distribution Width 13.7 % (11.6-14.8) Platelet Count 455 K/UL (150-450) H Mean Platelet Volume 5.7 FL (6.5-10.1) L Neutrophils (%) (Auto) 63.0 % (45.0-75.0) Lymphocytes (%) (Auto) 26.9 % (20.0-45.0) Monocytes (%) (Auto) 3.9 % (1.0-10.0) Eosinophils (%) (Auto) 5.2 % (0.0-3.0) H Basophils (%) (Auto) 0.9 % (0.0-2.0) Erythrocyte Sedimentation Rate 110 MM/HR (0-20) H Prothrombin Time 10.0 SEC (9.30-11.50) Prothromb Time International Ratio 0.9 (0.9-1.1) Activated Partial Thromboplast Time 42 SEC (23-33) H Sodium Level 138 MMOL/L (136-145) Potassium Level 4.5 MMOL/L (3.5-5.1) Chloride Level 103 MMOL/L (98-107) Carbon Dioxide Level 32 MMOL/L (21-32) Anion Gap 4 mmol/L (5-15) L Blood Urea Nitrogen 19 mg/dL (7-18) H Creatinine 0.9 MG/DL (0.55-1.30) Estimat Glomerular Filtration Rate > 60 mL/min (>60) Glucose Level 159 MG/DL (74-106) H Calcium Level 9.9 MG/DL (8.5-10.1) Total Bilirubin 0.2 MG/DL (0.2-1.0) Aspartate Amino Transf (AST/SGOT) 69 U/L (15-37) H Alanine Aminotransferase (ALT/SGPT) 62 U/L (12-78) Alkaline Phosphatase 300 U/L (46-116) H C-Reactive Protein, Quantitative 3.9 mg/dL (0.00-0.90) H Total Protein 7.9 G/DL (6.4-8.2) Albumin 2.4 G/DL (3.4-5.0) L Globulin 5.5 g/dL Albumin/Globulin Ratio 0.4 (1.0-2.7) L Vancomycin Level Trough 21.4 ug/mL (5.0-12.0) H 25.5 ug/mL (5.0-12.0) H Stool Occult Blood Pending Plan Problems: (1) Decubitus skin ulcer Assessment & Plan: Pt presented on admission with multiple pressure injuries. Resolving pressure injury cleft of R ear. Grundy epithelial at base of wound with marginal erythema. Non-blanching erythema cleft of L ear. Pt is receiving o2 via nasal cannula, and oxygen tubing padded with gauze to minimize pressure and friction to both ears. Unstageable Sacral Pressure Injury(L)9.4cm x (W)7.8cm. Base of wound is 75% necrotic and and soft, 20% surrounding slough,Marginal erythema and macerated borders. Mild odor noted. Small amt seropurulent exudate.Periwound,skin tone is darker without elevation in skin temp, fluctuance or induration.small area of hyperpigmentation noted to L gluteal cheek. L Heel extending into plantar aspect is boggy with non-blanching erythema. Non-blanching erythema R heel without induration or fluctuance. Xerosis skin both feet. Tx.Plan: Cleanse Sacral wound with Saline. Apply Therahoney. Apply Moisture Barrier Paste periwound. Cover with Optifoam Drsg. Change every 3 days and prn. Apply Moisture Barrier paste to Perineum, R and L buttocks with each incontinence care. Apply Cavilon Skin Barrier to both heels. Cover each heel with Optifoam drsg. Change every 7 days and prn. Apply Cavilon Skin Barrier to clefts of both R and L ears Daily. Pad Oxygen tubing with gauze around Ears. Keep Oxygen tubing loose around Ears. Reposition at least every 2hours or as tolerated. Off-load heels with pillow. APM/CHRISTOPHER Mattress overlay. (2) Leukocytosis Assessment & Plan: leukocytosis 28k on admission trending down resolving wbc on abx wounds unlikely etiology pna ua noted cont abx as per id wbc 12k trending up again imaging reviewed abx changed per Id will follow with recs wbc trending up cxr with v Apparently increased hazy airspace opacity on background of generalized mild interstitial disease. May be an artifact of under distention but could reflect worsening bilateral infiltrates. Stable bibasilar atelectasis and right basilar consolidation thank you US On the right, grayscale and duplex images demonstrate no evidence of intraluminal thrombus. Normal phasic Doppler waveforms. Patent upstream internal jugular and subclavian veins. Normal compressibility. The cephalic vein is very small. Impression: Negative for upper extremity venous thrombosis (3) Lung mass (4) Protein-calorie malnutrition, severe Assessment & Plan: There is a gastrostomy tube in place. Previously demonstrated nasogastric tube is no longer evident. Bowel gas pattern is unremarkable. No masses or unusual calcifications. There is evidence of a Macedo catheter. There is a right hip prosthesis. There are degenerative changes of the lumbar spine nutritional optimization tube feeds bmi noted alb low DAILY ESTIMATED NEEDS: Needs based on Pulmonary, wounds; 72.5kg 25-30 kcals/kg 6098-1685 total kcals 1.25-1.5 g protein/kg 90-108 g total protein 25-30 mL/kg 0127-8840 total fluid mLs NUTRITION DIAGNOSIS: 1. Increased pro needs r/t wound healing as evidenced by pt adm w/ multiple wounds including unstageable sacral wound, refer to WC eval. 2. Swallowing difficulty r/t dysphagia as evidenced by GT dependent. CURRENT TF:Glucerna 1.5 @ 50ml/hr x 22 hrs (on Dilantin QD) ENTERAL NUTRITION RECOMMENDATIONS: Glucerna 1.5 @55ml/hr x22 hrs (1 hr held before and after Dilantin med) to provide 1210ml, 1815kcal, 100g prot, 918ml free water - Increase goal rate to 55ml/hr to meet 100% est kcal/prot needs - Hold 1 hr before and after Dilantin med - HOB over 30 degrees ADDITIONAL RECOMMENDATIONS: * Wound healing: continue Vit C add KESHIA in 4oz H2O BID via GT * Calibrated bedscale wt for accurate CBW * Check lytes daily w/ TF, replete as needed * Monitor TF tolerance/residuals * DC D5 once TF @ goal (5) Suspected COVID-19 virus infection Assessment & Plan: covid negative Right basilar consolidation and atelectasis, could indicate pneumonia. Minimal left basilar atelectasis Gabino Little October 11, 2019 18:16
[2019-10-11 20:00] VITALS: BP 101/63
[2019-10-11] MEDS: Donepezil 5mg Tab GT SCH (22:13)
[2019-10-12] VITALS: BP 100/61
[2019-10-12] MEDS: Polymyxin B Sulfate 500,000 UNITS in D5W 500ml 550 ML IV SCH (01:15)
[2019-10-12] MEDS: Piperacillin/Tazobactam 3.375 GM in NS 110 ML IVPB SCH (02:39)
[2019-10-12 04:00] VITALS: BP 116/63
[2019-10-12] MEDS: NovoLOG Insulin Flexpen SUBQ SCH ×4 (06:14→21:00)
[2019-10-12] MEDS: Vancomycin 1.25gm/NS Premix IVPB SCH (06:43)
[2019-10-12] MEDS: Heparin 5000 units/ml inj SUBQ SCH ×3 (06:43→21:54)
[2019-10-12 08:00] VITALS: BP 128/74
[2019-10-12 08:13] LABS: BASOPHILS % (AUTO) 1.3 % (0.0-2.0); EOSINOPHILS % (AUTO) 4.2 % (0.0-3.0); HEMATOCRIT 28.7 % (42.0-52.0); HEMOGLOBIN 9.8 G/DL (14.2-18.0); LYMPHOCYTES % (AUTO) 25.5 % (20.0-45.0); MEAN CORPUSCULAR VOLUME 95 FL (80-99); MONOCYTES % (AUTO) 8.2 % (1.0-10.0); NEUTROPHILS % (AUTO) 60.8 % (45.0-75.0); PLATELET COUNT 491 K/UL (150-450); RED CELL DISTRIBUTION WIDTH 13.4 % (11.6-14.8); WHITE BLOOD COUNT 12.9 K/UL (4.8-10.8)
[2019-10-12 08:22] LABS: ANION GAP 6 mmol/L (5-15); BLOOD UREA NITROGEN 19 mg/dL (7-18); CALCIUM 9.9 MG/DL (8.5-10.1); CARBON DIOXIDE 31 MMOL/L (21-32); CHLORIDE 102 MMOL/L (98-107); CREATININE 0.9 MG/DL (0.55-1.30); POTASSIUM 4.3 MMOL/L (3.5-5.1); SODIUM 139 MMOL/L (136-145)
[2019-10-12] MEDS: Phenytoin Susp 100mg/4ml GT SCH (08:30)
[2019-10-12] MEDS: Milk of Magnesia 30ml Ud GT SCH (08:30)
[2019-10-12] MEDS: levETIRAcetam 500mg/5ml Liquid GT SCH ×2 (08:30→21:00)
[2019-10-12] MEDS: Ferrous Sulfate 300 MG/5 ML UDC GT SCH ×2 (08:30→18:34)
[2019-10-12] MEDS: Docusate 100mg/10ml Liq GT SCH ×2 (08:30→18:34)
[2019-10-12] MEDS: Sennosides 8.6mg tab GT SCH (08:32)
[2019-10-12] MEDS: Ascorbic Acid 500mg tab GT SCH ×2 (08:32→18:33)
--- NOTE | 2019-10-12 09:45 | Pulmonology Progress Note ---
Subjective ROS Limited/Unobtainable: Yes Interval Events: None new Constitutional: Denies: fever HEENT: Repors: no symptoms Respiratory: Reports: dry cough, shortness of breath Cardiovascular: Reports: no symptoms Gastrointestinal/Abdominal: Reports: no symptoms Allergies: Coded Allergies: PNEUMOCOCCAL VACCINE (Unverified Allergy, Unknown, 10/07/18) Uncoded Allergies: PNA VACCINE (Allergy, Unknown, 09/30/19) All Systems: reviewed and negative except above Objective Last 24 Hour Vital Signs Date Time Temp Pulse Resp B/P (MAP) Pulse Ox O2 Delivery O2 Flow Rate FiO2 10/12/19 08:31 92 128/74 10/12/19 06:44 131/67 10/12/19 04:00 97.5 90 20 116/63 (80) 94 10/12/19 04:00 82 10/12/19 01:01 100/63 10/12/19 00:00 98.1 92 18 100/61 (74) 100 10/12/19 00:00 79 10/11/19 21:00 Nasal Cannula 2.0 10/11/19 20:00 97.9 93 18 101/63 (76) 93 10/11/19 20:00 83 10/11/19 17:36 122/67 10/11/19 16:00 98.0 86 20 122/67 (85) 98 10/11/19 16:00 93 10/11/19 12:06 120/58 10/11/19 12:00 97.9 93 20 120/58 (78) 97 10/11/19 12:00 93 10/11/19 10:00 86 124/74 Intake and Output 10/11/19 10/12/19 19:00 07:00 Intake Total 1497.5 ml 1552.5 ml Output Total 1000 ml 750 ml Balance 497.5 ml 802.5 ml Intake Free Water 200 ml 260 ml IV Total 577.5 ml 742.5 ml Tube Feeding 600 ml 550 ml Other 120 ml Output Urine Total 1000 ml 750 ml # Bowel Movements 2 General Appearance: no acute distress HEENT: mucous membranes moist Respiratory/Chest: chest wall non-tender, decreased breath sounds Cardiovascular: normal peripheral pulses, normal rate Abdomen: soft, non tender, other - GT feeding Extremities: no edema Skin: other - erythema, cord like induration in R forearm Neurologic/Psychiatric: aphasia, other - opens eyes Laboratory Tests 10/11/19 15:45: Vancomycin Level Trough 25.5H 10/12/19 07:40: White Blood Count 12.9H, Red Blood Count 3.00L, Hemoglobin 9.8L, Hematocrit 28.7L, Mean Corpuscular Volume 95, Mean Corpuscular Hemoglobin 32.7H, Mean Corpuscular Hemoglobin Concent 34.3, Red Cell Distribution Width 13.4, Platelet Count 491H, Mean Platelet Volume 6.0L, Neutrophils (%) (Auto) 60.8, Lymphocytes (%) (Auto) 25.5, Monocytes (%) (Auto) 8.2, Eosinophils (%) (Auto) 4.2H, Basophils (%) (Auto) 1.3, Sodium Level 139, Potassium Level 4.3, Chloride Level 102, Carbon Dioxide Level 31, Anion Gap 6, Blood Urea Nitrogen 19H, Creatinine 0.9, Estimat Glomerular Filtration Rate > 60, Glucose Level 113H, Calcium Level 9.9 Current Medications Medications (Trade) Dose Ordered Sig/Nidhi Route PRN Reason Start Time Stop Time Status Last Admin Dose Admin Acetaminophen (Tylenol) 650 mg Q4H PRN GT Pain/Temp >100.5 10/01/19 03:30 10/30/19 23:29 10/06/19 09:02 Amlodipine Besylate (Norvasc) 10 mg DAILY GT 10/01/19 09:00 10/31/19 08:59 10/12/19 08:31 Ascorbic Acid (Vitamin C) 250 mg BID GT 10/01/19 09:00 10/31/19 08:59 10/12/19 08:32 Clonidine HCl (Catapres Tab) 0.1 mg EVERY 6 HOURS GT 10/01/19 00:00 12/30/19 00:00 10/12/19 06:44 Dextrose (Dextrose 50%) 25 ml Q30M PRN IV Hypoglycemia 09/30/19 22:00 12/29/19 21:59 Dextrose (Dextrose 50%) 50 ml Q30M PRN IV Hypoglycemia 09/30/19 22:00 12/29/19 21:59 Docusate Sodium (Colace) 100 mg TWICE A DAY GT 10/01/19 09:00 10/31/19 08:59 10/12/19 08:30 Donepezil HCl (Aricept) 5 mg BEDTIME GT 10/01/19 21:00 10/31/19 20:59 10/11/19 22:13 Ferrous Sulfate (Feosol) 325 mg BID GT 10/01/19 09:00 12/30/19 08:59 10/12/19 08:30 Heparin Sodium (Porcine) (Heparin 5000 units/ml) 5,000 units EVERY 8 HOURS SUBQ 10/01/19 06:00 11/15/19 05:59 10/11/19 22:14 Insulin Aspart (NovoLOG) BEFORE MEALS AND HS SUBQ 09/30/19 21:51 12/29/19 21:50 10/10/19 06:13 Lansoprazole (Prevacid) 30 mg DAILY GT 10/12/19 09:00 11/11/19 08:59 10/12/19 08:32 Levetiracetam (Keppra) 500 mg Q12HR GT 10/01/19 09:00 11/15/19 08:59 10/12/19 08:30 Magnesium Hydroxide (Mom) 30 ml DAILY GT 10/01/19 09:00 10/31/19 08:59 10/12/19 08:30 Metoclopramide HCl (Reglan) 5 mg Q6H PRN IVP Nausea & Vomiting 10/02/19 09:45 11/01/19 09:44 Multivitamins (Multivitamins) 1 tab DAILY GT 10/01/19 09:00 10/31/19 08:59 10/12/19 08:31 Phenytoin (Dilantin) 300 mg DAILY GT 10/01/19 09:00 11/15/19 08:59 10/12/19 08:30 Piperacillin Sod/ Tazobactam Sod 3.375 gm/Sodium Chloride 110 ml @ 27.5 mls/hr Q8H IVPB 10/11/19 18:00 10/18/19 17:59 10/12/19 02:39 Polymyxin B Sulfate 561730 units/Dextrose 550 ml @ 550 mls/hr Q12H IV 10/03/19 13:00 10/12/19 12:59 10/12/19 01:15 Sennosides (Senokot) 8.6 mg DAILY GT 10/01/19 09:00 5/29/20 08:59 10/12/19 08:32 Vancomycin HCl (Vanco rx to dose) 1 ea DAILY PRN MISC Per rx protocol 10/09/19 14:15 11/08/19 14:14 Vancomycin/Sodium Chloride 275 ml @ 183.333 mls/hr Q24H IVPB 10/12/19 06:00 10/17/19 05:59 10/12/19 06:43 Assessment/Plan Assessment/Plan IMPRESSION: 1. Right lung pneumonia. 2. [facility] resident. 3. Recent hospitalization at [facility]. 4. Diabetes mellitus. 5. Hypertension. 6. COPD. 7. Pacemaker. DISCUSSION: Continue broad-spectrum antibiotics. Continue oxygen, pulmonary hygiene. I will follow carefully. COVID 19 pcr x 1 negative Saturating well on 2L/min O2 Kam Mathis Omar Syed MD October 12, 2019 09:45
--- NOTE | 2019-10-12 10:06 | GI Progress Note ---
Assessment/Plan Problems: (1) Protein-calorie malnutrition, severe ICD Codes: E43 - Unspecified severe protein-calorie malnutrition SNOMED: 571731616 (2) PEG (percutaneous endoscopic gastrostomy) adjustment/replacement/removal ICD Codes: Z43.1 - Encounter for attention to gastrostomy SNOMED: 606305141, 907577166 (3) Dysphagia ICD Codes: R13.10 - Dysphagia, unspecified SNOMED: 14832290, 867995561 (4) Dehydration ICD Codes: E86.0 - Dehydration SNOMED: 63530780 (5) Suspected COVID-19 virus infection ICD Codes: Z20.828 - Contact with and (suspected) exposure to other viral communicable diseases SNOMED: 562231236 Status: unchanged Status Narrative Discussed with Dr. Anton. Assessment/Plan 1. Hypertension. 2. Diabetes. 3. COPD. 4. History of pacemaker placement. 5. Dementia. 6. gastroparesis Anemia reported black tarry stool from iron, repeat OB stool negative prn transfusions PPI daily reglan GTF GT flushes repeat labs will fu The patient was seen and examined at bedside and all new and available data was reviewed in the patients chart. I agree with the above findings, impression and plan. (Patient seen earlier today. Signature stamp does not reflect patient encounter time.). - Terence Anton MD Subjective Subjective limited Objective Last 24 Hour Vital Signs Date Time Temp Pulse Resp B/P (MAP) Pulse Ox O2 Delivery O2 Flow Rate FiO2 10/12/19 08:31 92 128/74 10/12/19 06:44 131/67 10/12/19 04:00 97.5 90 20 116/63 (80) 94 10/12/19 04:00 82 10/12/19 01:01 100/63 10/12/19 00:00 98.1 92 18 100/61 (74) 100 10/12/19 00:00 79 10/11/19 21:00 Nasal Cannula 2.0 10/11/19 20:00 97.9 93 18 101/63 (76) 93 10/11/19 20:00 83 10/11/19 17:36 122/67 10/11/19 16:00 98.0 86 20 122/67 (85) 98 10/11/19 16:00 93 10/11/19 12:06 120/58 10/11/19 12:00 97.9 93 20 120/58 (78) 97 10/11/19 12:00 93 Intake and Output 10/11/19 10/12/19 19:00 07:00 Intake Total 1497.5 ml 1552.5 ml Output Total 1000 ml 750 ml Balance 497.5 ml 802.5 ml Intake Free Water 200 ml 260 ml IV Total 577.5 ml 742.5 ml Tube Feeding 600 ml 550 ml Other 120 ml Output Urine Total 1000 ml 750 ml # Bowel Movements 2 Laboratory Tests Test 10/11/19 15:45 10/12/19 07:40 Vancomycin Level Trough 25.5 ug/mL (5.0-12.0) H White Blood Count 12.9 K/UL (4.8-10.8) H Red Blood Count 3.00 M/UL (4.70-6.10) L Hemoglobin 9.8 G/DL (14.2-18.0) L Hematocrit 28.7 % (42.0-52.0) L Mean Corpuscular Volume 95 FL (80-99) Mean Corpuscular Hemoglobin 32.7 PG (27.0-31.0) H Mean Corpuscular Hemoglobin Concent 34.3 G/DL (32.0-36.0) Red Cell Distribution Width 13.4 % (11.6-14.8) Platelet Count 491 K/UL (150-450) H Mean Platelet Volume 6.0 FL (6.5-10.1) L Neutrophils (%) (Auto) 60.8 % (45.0-75.0) Lymphocytes (%) (Auto) 25.5 % (20.0-45.0) Monocytes (%) (Auto) 8.2 % (1.0-10.0) Eosinophils (%) (Auto) 4.2 % (0.0-3.0) H Basophils (%) (Auto) 1.3 % (0.0-2.0) Sodium Level 139 MMOL/L (136-145) Potassium Level 4.3 MMOL/L (3.5-5.1) Chloride Level 102 MMOL/L (98-107) Carbon Dioxide Level 31 MMOL/L (21-32) Anion Gap 6 mmol/L (5-15) Blood Urea Nitrogen 19 mg/dL (7-18) H Creatinine 0.9 MG/DL (0.55-1.30) Estimat Glomerular Filtration Rate > 60 mL/min (>60) Glucose Level 113 MG/DL (74-106) H Calcium Level 9.9 MG/DL (8.5-10.1) Height (Feet): 6 Height (Inches): 0.00 Weight (Pounds): 186 Cardiovascular: normal rate Respiratory/Chest: no respiratory distress Abdominal Exam: soft [place] Sinha NP October 12, 2019 10:06
--- NOTE | 2019-10-12 10:43 | Hematology/Onc Progress Note ---
Assessment/Plan Assessment/Plan # Leukocytosis on admission, rule out covid, given snf hx of multiple covid patinets, with pna noted on imaging --> may be due to infection --> per id --> wbc 28-->11.6-->12.1-->18->19->12.8 --> smear is noted --> abx cefepime/azithro-->polymyxin # Hypercalcemia r/o malignancy, r/o myeloma, elevated on admission, may be 2/2 dehydration --> Ca 10.7-->9.9 --> pth is wnl, spep is also wnl as is upep --> on iv fluids as per pcp --> renal eval prn --> pth on prior admission was 42 # Multiple lung nodules -- in 2017 2 cm pleural-based masslike opacity containing multiple nodular calcifications andadjacent parenchymal linear density persists in the anterolateral periphery of thelateral segment right middle lobe, unchanged. Adjacent small nodular parenchymaldensities persist, unchanged. --> pulm aware --> consider ct chest once better --> Dr. 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 Subjective Genitourinary: Denies: no symptoms, burning, discharge, frequency, flank pain, hematuria, incontinence, pain, urgency, other Endocrine: Denies: no symptoms, excessive sweating, flushing, intolerance to cold, intolerance to heat, increased hunger, increased thirst, increased urine, unexplained weight gain, unexplained weight loss, other Hematologic/Lymphatic: Denies: no symptoms, anemia, easy bleeding, easy bruising, adenopathy, other Allergies: Coded Allergies: PNEUMOCOCCAL VACCINE (Unverified Allergy, Unknown, 10/07/18) Uncoded Allergies: PNA VACCINE (Allergy, Unknown, 09/30/19) All Systems: reviewed and negative except above Subjective 10/01 nonverbal, confused, to be npo, tube feeds on hold, no bleeding, meds reviewed 10/02 remains nonverbal, on gtube feeds, labs noted, no bleeding 10/04 labs reviewed, on polymyxin, cont sq heparin q8 hrs, nc 2l, 10/05 labs still pending, gtube feeds ongoing, no bleeding 10/06 remains confused, with glucerna running, labs reviewed, 99.7f overnight 10/07 labs reviewed, no bleeding, on glucerna, no fc 10/08 nonverbal, with gtube, working, nonfunctional, labs ordered 10/09 no bleeding, no night sweats, no major changes, no fc 10/11 labs are noted, no bleeding or chills, meds reviewed Objective Objective Current Medications Medications (Trade) Dose Ordered Sig/Nidhi Route PRN Reason Start Time Stop Time Status Last Admin Dose Admin Acetaminophen (Tylenol) 650 mg Q4H PRN GT Pain/Temp >100.5 10/01/19 03:30 10/30/19 23:29 10/06/19 09:02 Amlodipine Besylate (Norvasc) 10 mg DAILY GT 10/01/19 09:00 10/31/19 08:59 10/12/19 08:31 Ascorbic Acid (Vitamin C) 250 mg BID GT 10/01/19 09:00 10/31/19 08:59 10/12/19 08:32 Clonidine HCl (Catapres Tab) 0.1 mg EVERY 6 HOURS GT 10/01/19 00:00 12/30/19 00:00 10/12/19 06:44 Dextrose (Dextrose 50%) 25 ml Q30M PRN IV Hypoglycemia 09/30/19 22:00 12/29/19 21:59 Dextrose (Dextrose 50%) 50 ml Q30M PRN IV Hypoglycemia 09/30/19 22:00 12/29/19 21:59 Docusate Sodium (Colace) 100 mg TWICE A DAY GT 10/01/19 09:00 10/31/19 08:59 10/12/19 08:30 Donepezil HCl (Aricept) 5 mg BEDTIME GT 10/01/19 21:00 10/31/19 20:59 10/11/19 22:13 Ferrous Sulfate (Feosol) 325 mg BID GT 10/01/19 09:00 12/30/19 08:59 10/12/19 08:30 Heparin Sodium (Porcine) (Heparin 5000 units/ml) 5,000 units EVERY 8 HOURS SUBQ 10/01/19 06:00 11/15/19 05:59 10/11/19 22:14 Insulin Aspart (NovoLOG) BEFORE MEALS AND HS SUBQ 09/30/19 21:51 12/29/19 21:50 10/10/19 06:13 Lansoprazole (Prevacid) 30 mg DAILY GT 10/12/19 09:00 11/11/19 08:59 10/12/19 08:32 Levetiracetam (Keppra) 500 mg Q12HR GT 10/01/19 09:00 11/15/19 08:59 10/12/19 08:30 Magnesium Hydroxide (Mom) 30 ml DAILY GT 10/01/19 09:00 10/31/19 08:59 10/12/19 08:30 Metoclopramide HCl (Reglan) 5 mg Q6H PRN IVP Nausea & Vomiting 10/02/19 09:45 11/01/19 09:44 Multivitamins (Multivitamins) 1 tab DAILY GT 10/01/19 09:00 10/31/19 08:59 10/12/19 08:31 Phenytoin (Dilantin) 300 mg DAILY GT 10/01/19 09:00 11/15/19 08:59 10/12/19 08:30 Piperacillin Sod/ Tazobactam Sod 3.375 gm/Sodium Chloride 110 ml @ 27.5 mls/hr Q8H IVPB 10/11/19 18:00 10/18/19 17:59 10/12/19 02:39 Polymyxin B Sulfate 704879 units/Dextrose 550 ml @ 550 mls/hr Q12H IV 10/03/19 13:00 10/12/19 12:59 10/12/19 01:15 Sennosides (Senokot) 8.6 mg DAILY GT 10/01/19 09:00 10/31/19 08:59 10/12/19 08:32 Vancomycin HCl (Vanco rx to dose) 1 ea DAILY PRN MISC Per rx protocol 10/09/19 14:15 11/08/19 14:14 Vancomycin/Sodium Chloride 275 ml @ 183.333 mls/hr Q24H IVPB 10/12/19 06:00 10/17/19 05:59 10/12/19 06:43 Last 24 Hour Vital Signs Date Time Temp Pulse Resp B/P (MAP) Pulse Ox O2 Delivery O2 Flow Rate FiO2 10/12/19 08:31 92 128/74 10/12/19 08:00 85 10/12/19 08:00 99.1 90 20 128/74 (92) 92 10/12/19 06:44 131/67 10/12/19 04:00 97.5 90 20 116/63 (80) 94 10/12/19 04:00 82 10/12/19 01:01 100/63 10/12/19 00:00 98.1 92 18 100/61 (74) 100 10/12/19 00:00 79 10/11/19 21:00 Nasal Cannula 2.0 10/11/19 20:00 97.9 93 18 101/63 (76) 93 10/11/19 20:00 83 10/11/19 17:36 122/67 10/11/19 16:00 98.0 86 20 122/67 (85) 98 10/11/19 16:00 93 10/11/19 12:06 120/58 10/11/19 12:00 97.9 93 20 120/58 (78) 97 10/11/19 12:00 93 10/11/19 10:00 86 124/74 10/11/19 09:00 Nasal Cannula 2.0 10/11/19 08:00 98.6 86 22 124/74 (91) 98 10/11/19 07:44 85 10/11/19 05:27 119/61 10/11/19 04:00 87 10/11/19 04:00 97.7 85 18 119/61 (80) 98 10/11/19 00:00 77 10/11/19 00:00 97.6 86 18 111/69 (83) 99 10/11/19 00:00 109/69 10/10/19 21:00 Nasal Cannula 2.0 10/10/19 20:00 81 10/10/19 20:00 97.4 83 18 100/61 (74) 100 10/10/19 18:10 114/70 10/10/19 16:00 98.6 60 18 114/70 (85) 97 10/10/19 15:45 91 10/10/19 12:28 91 10/10/19 12:17 116/67 10/10/19 12:00 96.7 78 19 112/60 (77) 96 Intake and Output 10/11/19 10/12/19 19:00 07:00 Intake Total 1497.5 ml 1552.5 ml Output Total 1000 ml 750 ml Balance 497.5 ml 802.5 ml Intake Free Water 200 ml 260 ml IV Total 577.5 ml 742.5 ml Tube Feeding 600 ml 550 ml Other 120 ml Output Urine Total 1000 ml 750 ml # Bowel Movements 2 Labs Test 10/10/19 05:15 10/11/19 03:28 10/11/19 09:20 10/11/19 15:45 White Blood Count 19.3 K/UL (4.8-10.8) 12.3 K/UL (4.8-10.8) Red Blood Count 3.23 M/UL (4.70-6.10) 3.11 M/UL (4.70-6.10) Hemoglobin 10.6 G/DL (14.2-18.0) 10.0 G/DL (14.2-18.0) Hematocrit 31.3 % (42.0-52.0) 29.9 % (42.0-52.0) Mean Corpuscular Volume 97 FL (80-99) 96 FL (80-99) Mean Corpuscular Hemoglobin 32.8 PG (27.0-31.0) 32.2 PG (27.0-31.0) Mean Corpuscular Hemoglobin Concent 33.9 G/DL (32.0-36.0) 33.5 G/DL (32.0-36.0) Red Cell Distribution Width 13.9 % (11.6-14.8) 13.7 % (11.6-14.8) Platelet Count 416 K/UL (150-450) 455 K/UL (150-450) Mean Platelet Volume 6.3 FL (6.5-10.1) 5.7 FL (6.5-10.1) Neutrophils (%) (Auto) % (45.0-75.0) 63.0 % (45.0-75.0) Lymphocytes (%) (Auto) % (20.0-45.0) 26.9 % (20.0-45.0) Monocytes (%) (Auto) % (1.0-10.0) 3.9 % (1.0-10.0) Eosinophils (%) (Auto) % (0.0-3.0) 5.2 % (0.0-3.0) Basophils (%) (Auto) % (0.0-2.0) 0.9 % (0.0-2.0) Differential Total Cells Counted 100 Neutrophils % (Manual) 75 % (45-75) Lymphocytes % (Manual) 20 % (20-45) Monocytes % (Manual) 3 % (1-10) Eosinophils % (Manual) 2 % (0-3) Basophils % (Manual) 0 % (0-2) Band Neutrophils 0 % (0-8) Nucleated Red Blood Cells 16 /100 WBC Platelet Estimate Adequate Platelet Morphology Normal Hypochromasia 1+ Erythrocyte Sedimentation Rate 110 MM/HR (0-20) Prothrombin Time 10.0 SEC (9.30-11.50) Prothromb Time International Ratio 0.9 (0.9-1.1) Activated Partial Thromboplast Time 42 SEC (23-33) Sodium Level 138 MMOL/L (136-145) Potassium Level 4.5 MMOL/L (3.5-5.1) Chloride Level 103 MMOL/L (98-107) Carbon Dioxide Level 32 MMOL/L (21-32) Anion Gap 4 mmol/L (5-15) Blood Urea Nitrogen 19 mg/dL (7-18) Creatinine 0.9 MG/DL (0.55-1.30) Estimat Glomerular Filtration Rate > 60 mL/min (>60) Glucose Level 159 MG/DL (74-106) Calcium Level 9.9 MG/DL (8.5-10.1) Total Bilirubin 0.2 MG/DL (0.2-1.0) Aspartate Amino Transf (AST/SGOT) 69 U/L (15-37) Alanine Aminotransferase (ALT/SGPT) 62 U/L (12-78) Alkaline Phosphatase 300 U/L (46-116) C-Reactive Protein, Quantitative 3.9 mg/dL (0.00-0.90) Total Protein 7.9 G/DL (6.4-8.2) Albumin 2.4 G/DL (3.4-5.0) Globulin 5.5 g/dL Albumin/Globulin Ratio 0.4 (1.0-2.7) Vancomycin Level Trough 21.4 ug/mL (5.0-12.0) 25.5 ug/mL (5.0-12.0) Stool Occult Blood Negative (NEGATIVE) Test 10/12/19 07:40 White Blood Count 12.9 K/UL (4.8-10.8) Red Blood Count 3.00 M/UL (4.70-6.10) Hemoglobin 9.8 G/DL (14.2-18.0) Hematocrit 28.7 % (42.0-52.0) Mean Corpuscular Volume 95 FL (80-99) Mean Corpuscular Hemoglobin 32.7 PG (27.0-31.0) Mean Corpuscular Hemoglobin Concent 34.3 G/DL (32.0-36.0) Red Cell Distribution Width 13.4 % (11.6-14.8) Platelet Count 491 K/UL (150-450) Mean Platelet Volume 6.0 FL (6.5-10.1) Neutrophils (%) (Auto) 60.8 % (45.0-75.0) Lymphocytes (%) (Auto) 25.5 % (20.0-45.0) Monocytes (%) (Auto) 8.2 % (1.0-10.0) Eosinophils (%) (Auto) 4.2 % (0.0-3.0) Basophils (%) (Auto) 1.3 % (0.0-2.0) Sodium Level 139 MMOL/L (136-145) Potassium Level 4.3 MMOL/L (3.5-5.1) Chloride Level 102 MMOL/L (98-107) Carbon Dioxide Level 31 MMOL/L (21-32) Anion Gap 6 mmol/L (5-15) Blood Urea Nitrogen 19 mg/dL (7-18) Creatinine 0.9 MG/DL (0.55-1.30) Estimat Glomerular Filtration Rate > 60 mL/min (>60) Glucose Level 113 MG/DL (74-106) Calcium Level 9.9 MG/DL (8.5-10.1) Height (Feet): 6 Height (Inches): 0.00 Weight (Pounds): 186 Objective vitals: noted gen: nonverbal pulm: ctab, some crackles left side, nc+ heent; nc, at, eomi Cv: rrr, no mgr abd: soft, nt, nd +gtube ext: no cce Ignacio Ponce MD October 12, 2019 10:43
[2019-10-12 12:00] VITALS: BP 133/78
--- NOTE | 2019-10-12 13:42 | Infectious Diseases Prog Note ---
Assessment/Plan Assessment/Plan IMPRESSION: 1. MDR Acinetobacter sepsis 2. Pneumonia. Negative COVID19 X 3 3. Unstageable pressure ulcer that doesn't seem to be infected . 4. Hypernatremia. 5. Anemia. 6. Advanced dementia. 7. History of diverticulosis. 8. Gastrostomy status. 9. Leukocytosis 10 Phlebitis & cellulitis of R arm RECOMMENDATION: Continue IV Vancomycin R arm venous duplex: No DVT No change in CXR Case was D/W pharmacy Subjective ROS Limited/Unobtainable: Yes Constitutional: Denies: fever Allergies: Coded Allergies: PNEUMOCOCCAL VACCINE (Unverified Allergy, Unknown, 10/07/18) Uncoded Allergies: PNA VACCINE (Allergy, Unknown, 09/30/19) Objective Vital Signs Last 24 Hour Vital Signs Date Time Temp Pulse Resp B/P (MAP) Pulse Ox O2 Delivery O2 Flow Rate FiO2 10/12/19 09:00 Venturi Mask 8.0 Venturi Mask 8.0 10/12/19 08:31 92 128/74 10/12/19 08:00 85 10/12/19 08:00 99.1 90 20 128/74 (92) 92 10/12/19 06:44 131/67 10/12/19 04:00 97.5 90 20 116/63 (80) 94 10/12/19 04:00 82 10/12/19 01:01 100/63 10/12/19 00:00 98.1 92 18 100/61 (74) 100 10/12/19 00:00 79 10/11/19 21:00 Nasal Cannula 2.0 10/11/19 20:00 97.9 93 18 101/63 (76) 93 10/11/19 20:00 83 10/11/19 17:36 122/67 10/11/19 16:00 98.0 86 20 122/67 (85) 98 10/11/19 16:00 93 Height (Feet): 6 Height (Inches): 0.00 Weight (Pounds): 186 HEENT: mucous membranes moist Respiratory/Chest: lungs clear, other - oxygen by mask Cardiovascular: normal rate Abdomen: soft, non tender, other - GT feeding Extremities: other - edema of R arm Skin: other - skin induration in right arm Neurologic/Psychiatric: aphasia Laboratory Tests Test 10/11/19 15:45 10/12/19 07:40 Vancomycin Level Trough 25.5 ug/mL (5.0-12.0) H White Blood Count 12.9 K/UL (4.8-10.8) H Red Blood Count 3.00 M/UL (4.70-6.10) L Hemoglobin 9.8 G/DL (14.2-18.0) L Hematocrit 28.7 % (42.0-52.0) L Mean Corpuscular Volume 95 FL (80-99) Mean Corpuscular Hemoglobin 32.7 PG (27.0-31.0) H Mean Corpuscular Hemoglobin Concent 34.3 G/DL (32.0-36.0) Red Cell Distribution Width 13.4 % (11.6-14.8) Platelet Count 491 K/UL (150-450) H Mean Platelet Volume 6.0 FL (6.5-10.1) L Neutrophils (%) (Auto) 60.8 % (45.0-75.0) Lymphocytes (%) (Auto) 25.5 % (20.0-45.0) Monocytes (%) (Auto) 8.2 % (1.0-10.0) Eosinophils (%) (Auto) 4.2 % (0.0-3.0) H Basophils (%) (Auto) 1.3 % (0.0-2.0) Sodium Level 139 MMOL/L (136-145) Potassium Level 4.3 MMOL/L (3.5-5.1) Chloride Level 102 MMOL/L (98-107) Carbon Dioxide Level 31 MMOL/L (21-32) Anion Gap 6 mmol/L (5-15) Blood Urea Nitrogen 19 mg/dL (7-18) H Creatinine 0.9 MG/DL (0.55-1.30) Estimat Glomerular Filtration Rate > 60 mL/min (>60) Glucose Level 113 MG/DL (74-106) H Calcium Level 9.9 MG/DL (8.5-10.1) Current Medications Medications (Trade) Dose Ordered Sig/Nidhi Route PRN Reason Start Time Stop Time Status Last Admin Dose Admin Acetaminophen (Tylenol) 650 mg Q4H PRN GT Pain/Temp >100.5 10/01/19 03:30 10/30/19 23:29 10/06/19 09:02 Amlodipine Besylate (Norvasc) 10 mg DAILY GT 10/01/19 09:00 10/31/19 08:59 10/12/19 08:31 Ascorbic Acid (Vitamin C) 250 mg BID GT 10/01/19 09:00 10/31/19 08:59 10/12/19 08:32 Clonidine HCl (Catapres Tab) 0.1 mg EVERY 6 HOURS GT 10/01/19 00:00 12/30/19 00:00 10/12/19 06:44 Dextrose (Dextrose 50%) 25 ml Q30M PRN IV Hypoglycemia 09/30/19 22:00 12/29/19 21:59 Dextrose (Dextrose 50%) 50 ml Q30M PRN IV Hypoglycemia 09/30/19 22:00 12/29/19 21:59 Docusate Sodium (Colace) 100 mg TWICE A DAY GT 10/01/19 09:00 10/31/19 08:59 10/12/19 08:30 Donepezil HCl (Aricept) 5 mg BEDTIME GT 10/01/19 21:00 10/31/19 20:59 10/11/19 22:13 Ferrous Sulfate (Feosol) 325 mg BID GT 10/01/19 09:00 12/30/19 08:59 10/12/19 08:30 Heparin Sodium (Porcine) (Heparin 5000 units/ml) 5,000 units EVERY 8 HOURS SUBQ 10/01/19 06:00 11/15/19 05:59 10/11/19 22:14 Insulin Aspart (NovoLOG) BEFORE MEALS AND HS SUBQ 09/30/19 21:51 12/29/19 21:50 10/10/19 06:13 Lansoprazole (Prevacid) 30 mg DAILY GT 10/12/19 09:00 11/11/19 08:59 10/12/19 08:32 Levetiracetam (Keppra) 500 mg Q12HR GT 10/01/19 09:00 11/15/19 08:59 10/12/19 08:30 Magnesium Hydroxide (Mom) 30 ml DAILY GT 10/01/19 09:00 10/31/19 08:59 10/12/19 08:30 Metoclopramide HCl (Reglan) 5 mg Q6H PRN IVP Nausea & Vomiting 10/02/19 09:45 11/01/19 09:44 Multivitamins (Multivitamins) 1 tab DAILY GT 10/01/19 09:00 10/31/19 08:59 10/12/19 08:31 Phenytoin (Dilantin) 300 mg DAILY GT 10/01/19 09:00 11/15/19 08:59 10/12/19 08:30 Sennosides (Senokot) 8.6 mg DAILY GT 10/01/19 09:00 10/31/19 08:59 10/12/19 08:32 Vancomycin HCl (Vanco rx to dose) 1 ea DAILY PRN MISC Per rx protocol 10/09/19 14:15 11/08/19 14:14 Vancomycin/Sodium Chloride 275 ml @ 183.333 mls/hr Q24H IVPB 10/12/19 06:00 10/17/19 05:59 10/12/19 06:43 Curtis Farah MD October 12, 2019 13:42
[2019-10-12] MEDS ORDERED: NS 275ml ONE (14:53)
[2019-10-12 16:00] VITALS: BP 110/78
--- NOTE | 2019-10-12 16:29 | Surgery Progress Note ---
Surgery Progress Note Subjective Additional Comments HD stable currently afebrile cxr stable micro noted h/h stable wbc trending down Objective Last 24 Hour Vital Signs Date Time Temp Pulse Resp B/P (MAP) Pulse Ox O2 Delivery O2 Flow Rate FiO2 10/12/19 14:53 133/78 10/12/19 12:00 99.4 92 20 133/78 (96) 98 10/12/19 12:00 89 10/12/19 09:00 Venturi Mask 8.0 Venturi Mask 8.0 10/12/19 08:31 92 128/74 10/12/19 08:00 85 10/12/19 08:00 99.1 90 20 128/74 (92) 92 10/12/19 06:44 131/67 10/12/19 04:00 97.5 90 20 116/63 (80) 94 10/12/19 04:00 82 10/12/19 01:01 100/63 10/12/19 00:00 98.1 92 18 100/61 (74) 100 10/12/19 00:00 79 10/11/19 21:00 Nasal Cannula 2.0 10/11/19 20:00 97.9 93 18 101/63 (76) 93 10/11/19 20:00 83 10/11/19 17:36 122/67 I&O Intake and Output 10/11/19 10/12/19 19:00 07:00 Intake Total 1497.5 ml 1552.5 ml Output Total 1000 ml 750 ml Balance 497.5 ml 802.5 ml Intake Free Water 200 ml 260 ml IV Total 577.5 ml 742.5 ml Tube Feeding 600 ml 550 ml Other 120 ml Output Urine Total 1000 ml 750 ml # Bowel Movements 2 Dressing: other Wound: other Drains: other Cardiovascular: RSR Respiratory: decreased breath sounds Abdomen: soft, non-tender, present bowel sounds Extremities: no tenderness, no cyanosis, other Laboratory Tests Test 10/12/19 07:40 White Blood Count 12.9 K/UL (4.8-10.8) H Red Blood Count 3.00 M/UL (4.70-6.10) L Hemoglobin 9.8 G/DL (14.2-18.0) L Hematocrit 28.7 % (42.0-52.0) L Mean Corpuscular Volume 95 FL (80-99) Mean Corpuscular Hemoglobin 32.7 PG (27.0-31.0) H Mean Corpuscular Hemoglobin Concent 34.3 G/DL (32.0-36.0) Red Cell Distribution Width 13.4 % (11.6-14.8) Platelet Count 491 K/UL (150-450) H Mean Platelet Volume 6.0 FL (6.5-10.1) L Neutrophils (%) (Auto) 60.8 % (45.0-75.0) Lymphocytes (%) (Auto) 25.5 % (20.0-45.0) Monocytes (%) (Auto) 8.2 % (1.0-10.0) Eosinophils (%) (Auto) 4.2 % (0.0-3.0) H Basophils (%) (Auto) 1.3 % (0.0-2.0) Sodium Level 139 MMOL/L (136-145) Potassium Level 4.3 MMOL/L (3.5-5.1) Chloride Level 102 MMOL/L (98-107) Carbon Dioxide Level 31 MMOL/L (21-32) Anion Gap 6 mmol/L (5-15) Blood Urea Nitrogen 19 mg/dL (7-18) H Creatinine 0.9 MG/DL (0.55-1.30) Estimat Glomerular Filtration Rate > 60 mL/min (>60) Glucose Level 113 MG/DL (74-106) H Calcium Level 9.9 MG/DL (8.5-10.1) Plan Problems: (1) Decubitus skin ulcer Assessment & Plan: Pt presented on admission with multiple pressure injuries. Resolving pressure injury cleft of R ear. Stoy epithelial at base of wound with marginal erythema. Non-blanching erythema cleft of L ear. Pt is receiving o2 via nasal cannula, and oxygen tubing padded with gauze to minimize pressure and friction to both ears. Unstageable Sacral Pressure Injury(L)9.4cm x (W)7.8cm. Base of wound is 75% necrotic and and soft, 20% surrounding slough,Marginal erythema and macerated borders. Mild odor noted. Small amt seropurulent exudate.Periwound,skin tone is darker without elevation in skin temp, fluctuance or induration.small area of hyperpigmentation noted to L gluteal cheek. L Heel extending into plantar aspect is boggy with non-blanching erythema. Non-blanching erythema R heel without induration or fluctuance. Xerosis skin both feet. Tx.Plan: Cleanse Sacral wound with Saline. Apply Therahoney. Apply Moisture Barrier Paste periwound. Cover with Optifoam Drsg. Change every 3 days and prn. Apply Moisture Barrier paste to Perineum, R and L buttocks with each incontinence care. Apply Cavilon Skin Barrier to both heels. Cover each heel with Optifoam drsg. Change every 7 days and prn. Apply Cavilon Skin Barrier to clefts of both R and L ears Daily. Pad Oxygen tubing with gauze around Ears. Keep Oxygen tubing loose around Ears. Reposition at least every 2hours or as tolerated. Off-load heels with pillow. APM/CHRISTOPHER Mattress overlay. (2) Leukocytosis Assessment & Plan: leukocytosis 28k on admission trending down resolving wbc on abx wounds unlikely etiology pna ua noted cont abx as per id wbc 12k trending up again imaging reviewed abx changed per Id will follow with recs wbc trending up cxr with v Apparently increased hazy airspace opacity on background of generalized mild interstitial disease. May be an artifact of under distention but could reflect worsening bilateral infiltrates. Stable bibasilar atelectasis and right basilar consolidation thank you US On the right, grayscale and duplex images demonstrate no evidence of intraluminal thrombus. Normal phasic Doppler waveforms. Patent upstream internal jugular and subclavian veins. Normal compressibility. The cephalic vein is very small. Impression: Negative for upper extremity venous thrombosis (3) Lung mass (4) Protein-calorie malnutrition, severe Assessment & Plan: There is a gastrostomy tube in place. Previously demonstrated nasogastric tube is no longer evident. Bowel gas pattern is unremarkable. No masses or unusual calcifications. There is evidence of a Macedo catheter. There is a right hip prosthesis. There are degenerative changes of the lumbar spine nutritional optimization tube feeds bmi noted alb low DAILY ESTIMATED NEEDS: Needs based on Pulmonary, wounds; 72.5kg 25-30 kcals/kg [id number] total kcals 1.25-1.5 g protein/kg 90-108 g total protein 25-30 mL/kg 4675-7883 total fluid mLs NUTRITION DIAGNOSIS: 1. Increased pro needs r/t wound healing as evidenced by pt adm w/ multiple wounds including unstageable sacral wound, refer to WC eval. 2. Swallowing difficulty r/t dysphagia as evidenced by GT dependent. CURRENT TF:Glucerna 1.5 @ 50ml/hr x 22 hrs (on Dilantin QD) ENTERAL NUTRITION RECOMMENDATIONS: Glucerna 1.5 @55ml/hr x22 hrs (1 hr held before and after Dilantin med) to provide 1210ml, 1815kcal, 100g prot, 918ml free water - Increase goal rate to 55ml/hr to meet 100% est kcal/prot needs - Hold 1 hr before and after Dilantin med - HOB over 30 degrees ADDITIONAL RECOMMENDATIONS: * Wound healing: continue Vit C add KESHIA in 4oz H2O BID via GT * Calibrated bedscale wt for accurate CBW * Check lytes daily w/ TF, replete as needed * Monitor TF tolerance/residuals * DC D5 once TF @ goal (5) Suspected COVID-19 virus infection Assessment & Plan: covid negative Right basilar consolidation and atelectasis, could indicate pneumonia. Minimal left basilar atelectasis Gabino Little October 12, 2019 16:29
[2019-10-12 20:00] VITALS: BP 117/74
--- NOTE | 2019-10-12 20:23 | General Progress Note ---
Assessment/Plan Problem List: (1) Fever ICD Codes: R50.9 - Fever, unspecified SNOMED: 779952580 (2) COPD (chronic obstructive pulmonary disease) ICD Codes: J44.9 - Chronic obstructive pulmonary disease, unspecified SNOMED: 69448191 (3) Severe sepsis ICD Codes: A41.9 - Sepsis, unspecified organism; R65.20 - Severe sepsis without septic shock SNOMED: 17441855 (4) PEG (percutaneous endoscopic gastrostomy) adjustment/replacement/removal ICD Codes: Z43.1 - Encounter for attention to gastrostomy SNOMED: 073179792, 474090071 (5) Protein-calorie malnutrition, severe ICD Codes: E43 - Unspecified severe protein-calorie malnutrition SNOMED: 684889400 (6) Acute febrile illness ICD Codes: R50.9 - Fever, unspecified SNOMED: 595755006 (7) PNA (pneumonia) ICD Codes: J18.9 - Pneumonia, unspecified organism SNOMED: 611276042 (8) Suspected COVID-19 virus infection ICD Codes: Z20.828 - Contact with and (suspected) exposure to other viral communicable diseases SNOMED: 869216902 (9) Congestion secondary to upper respiratory illness Status: unchanged Assessment/Plan: positive blood cx pna improving supportive therapy improving leukocytosis resp insuff Subjective ROS Limited/Unobtainable: Yes Allergies: Coded Allergies: PNEUMOCOCCAL VACCINE (Unverified Allergy, Unknown, 10/07/18) Uncoded Allergies: PNA VACCINE (Allergy, Unknown, 09/30/19) Objective Last 24 Hour Vital Signs Date Time Temp Pulse Resp B/P (MAP) Pulse Ox O2 Delivery O2 Flow Rate FiO2 10/12/19 18:00 98/78 10/12/19 16:00 82 10/12/19 16:00 99.1 105 20 110/78 (89) 100 10/12/19 14:53 133/78 10/12/19 12:00 99.4 92 20 133/78 (96) 98 10/12/19 12:00 89 10/12/19 09:00 Venturi Mask 8.0 Venturi Mask 8.0 10/12/19 08:31 92 128/74 10/12/19 08:00 85 10/12/19 08:00 99.1 90 20 128/74 (92) 92 10/12/19 06:44 131/67 10/12/19 04:00 97.5 90 20 116/63 (80) 94 10/12/19 04:00 82 10/12/19 01:01 100/63 10/12/19 00:00 98.1 92 18 100/61 (74) 100 10/12/19 00:00 79 10/11/19 21:00 Nasal Cannula 2.0 Intake and Output 10/11/19 10/12/19 19:00 07:00 Intake Total 1497.5 ml 1552.5 ml Output Total 1000 ml 750 ml Balance 497.5 ml 802.5 ml Intake Free Water 200 ml 260 ml IV Total 577.5 ml 742.5 ml Tube Feeding 600 ml 550 ml Other 120 ml Output Urine Total 1000 ml 750 ml # Bowel Movements 2 Laboratory Tests 10/12/19 07:40: White Blood Count 12.9H, Red Blood Count 3.00L, Hemoglobin 9.8L, Hematocrit 28.7L, Mean Corpuscular Volume 95, Mean Corpuscular Hemoglobin 32.7H, Mean Corpuscular Hemoglobin Concent 34.3, Red Cell Distribution Width 13.4, Platelet Count 491H, Mean Platelet Volume 6.0L, Neutrophils (%) (Auto) 60.8, Lymphocytes (%) (Auto) 25.5, Monocytes (%) (Auto) 8.2, Eosinophils (%) (Auto) 4.2H, Basophils (%) (Auto) 1.3, Sodium Level 139, Potassium Level 4.3, Chloride Level 102, Carbon Dioxide Level 31, Anion Gap 6, Blood Urea Nitrogen 19H, Creatinine 0.9, Estimat Glomerular Filtration Rate > 60, Glucose Level 113H, Calcium Level 9.9 Height (Feet): 6 Height (Inches): 0.00 Weight (Pounds): 186 Konrad Soares MD October 12, 2019 20:23
[2019-10-12] MEDS: Donepezil 5mg Tab GT SCH (21:00)
--- NOTE | 2019-10-12 22:57 | Cardiac Electrophysiology PN ---
Assessment/Plan Assessment/Plan 1. Sinus tachy due to pneumonia and dehydration. On Abx and iv fluids 2. Hypertension on amlodipine 10 mg daily and Clonidine 0.1 qid. 3. PNA and WBC still 19K On IV antibiotic and ruled out for COVID 4. History of seizures, on Keppra. 5. Dysphagia, s/P PEG 6. Hypernatremia and dehydration. Resolved DW RN Subjective Subjective 2 Covids are negative on 10/01 and 10/07/19. In SR. WBC still high on abx Objective Last 24 Hour Vital Signs Date Time Temp Pulse Resp B/P (MAP) Pulse Ox O2 Delivery O2 Flow Rate FiO2 10/12/19 21:00 Venturi Mask 8.0 Venturi Mask 8.0 10/12/19 18:00 98/78 10/12/19 16:00 82 10/12/19 16:00 99.1 105 20 110/78 (89) 100 10/12/19 14:53 133/78 10/12/19 12:00 99.4 92 20 133/78 (96) 98 10/12/19 12:00 89 10/12/19 09:00 Venturi Mask 8.0 Venturi Mask 8.0 10/12/19 08:31 92 128/74 10/12/19 08:00 85 10/12/19 08:00 99.1 90 20 128/74 (92) 92 10/12/19 06:44 131/67 10/12/19 04:00 97.5 90 20 116/63 (80) 94 10/12/19 04:00 82 10/12/19 01:01 100/63 10/12/19 00:00 98.1 92 18 100/61 (74) 100 10/12/19 00:00 79 Intake and Output 10/11/19 10/12/19 19:00 07:00 Intake Total 1497.5 ml 1552.5 ml Output Total 1000 ml 750 ml Balance 497.5 ml 802.5 ml Intake Free Water 200 ml 260 ml IV Total 577.5 ml 742.5 ml Tube Feeding 600 ml 550 ml Other 120 ml Output Urine Total 1000 ml 750 ml # Bowel Movements 2 Laboratory Tests Test 10/12/19 07:40 White Blood Count 12.9 K/UL (4.8-10.8) H Red Blood Count 3.00 M/UL (4.70-6.10) L Hemoglobin 9.8 G/DL (14.2-18.0) L Hematocrit 28.7 % (42.0-52.0) L Mean Corpuscular Volume 95 FL (80-99) Mean Corpuscular Hemoglobin 32.7 PG (27.0-31.0) H Mean Corpuscular Hemoglobin Concent 34.3 G/DL (32.0-36.0) Red Cell Distribution Width 13.4 % (11.6-14.8) Platelet Count 491 K/UL (150-450) H Mean Platelet Volume 6.0 FL (6.5-10.1) L Neutrophils (%) (Auto) 60.8 % (45.0-75.0) Lymphocytes (%) (Auto) 25.5 % (20.0-45.0) Monocytes (%) (Auto) 8.2 % (1.0-10.0) Eosinophils (%) (Auto) 4.2 % (0.0-3.0) H Basophils (%) (Auto) 1.3 % (0.0-2.0) Sodium Level 139 MMOL/L (136-145) Potassium Level 4.3 MMOL/L (3.5-5.1) Chloride Level 102 MMOL/L (98-107) Carbon Dioxide Level 31 MMOL/L (21-32) Anion Gap 6 mmol/L (5-15) Blood Urea Nitrogen 19 mg/dL (7-18) H Creatinine 0.9 MG/DL (0.55-1.30) Estimat Glomerular Filtration Rate > 60 mL/min (>60) Glucose Level 113 MG/DL (74-106) H Calcium Level 9.9 MG/DL (8.5-10.1) Objective HEAD AND NECK: No JVD. LUNGS: Coarse rhonchi. CARDIOVASCULAR: Regular S1 and S2 with no gallop. ABDOMEN: Status post G-tube. EXTREMITIES: No pitting edema. Sajan Campbell MD October 12, 2019 22:57
[2019-10-13] VITALS: BP 119/66
[2019-10-13 04:00] VITALS: BP 121/67
[2019-10-13] MEDS: Vancomycin 1.25gm/NS Premix IVPB SCH (05:32)
[2019-10-13] MEDS: Heparin 5000 units/ml inj SUBQ SCH ×3 (05:34→21:48)
[2019-10-13] MEDS: NovoLOG Insulin Flexpen SUBQ SCH ×4 (06:28→20:49)
[2019-10-13 07:33] LABS: BASOPHILS % (AUTO) 1.4 % (0.0-2.0); EOSINOPHILS % (AUTO) 4.1 % (0.0-3.0); HEMATOCRIT 29.7 % (42.0-52.0); LYMPHOCYTES % (AUTO) 32.3 % (20.0-45.0); MEAN CORPUSCULAR VOLUME 95 FL (80-99); MONOCYTES % (AUTO) 6.8 % (1.0-10.0); NEUTROPHILS % (AUTO) 55.5 % (45.0-75.0); PLATELET COUNT 496 K/UL (150-450); RED BLOOD COUNT 3.12 M/UL (4.70-6.10); RED CELL DISTRIBUTION WIDTH 13.6 % (11.6-14.8); WHITE BLOOD COUNT 13.4 K/UL (4.8-10.8)
[2019-10-13 08:00] VITALS: BP 148/87
[2019-10-13 08:13] LABS: ANION GAP 9 mmol/L (5-15); BLOOD UREA NITROGEN 18 mg/dL (7-18); CALCIUM 9.3 MG/DL (8.5-10.1); CARBON DIOXIDE 29 MMOL/L (21-32); CHLORIDE 103 MMOL/L (98-107); CREATININE 0.8 MG/DL (0.55-1.30); POTASSIUM 3.7 MMOL/L (3.5-5.1); SODIUM 141 MMOL/L (136-145)
--- NOTE | 2019-10-13 09:40 | General Progress Note ---
Assessment/Plan Status: unchanged Assessment/Plan: 1. Hypertension. 2. Diabetes. 3. COPD. 4. History of pacemaker placement. 5. Dementia. 6. gastroparesis reglan GTF GT flushes repeat labs pending dc will fu Subjective ROS Limited/Unobtainable: No Allergies: Coded Allergies: PNEUMOCOCCAL VACCINE (Unverified Allergy, Unknown, 10/07/18) Uncoded Allergies: PNA VACCINE (Allergy, Unknown, 09/30/19) Objective Last 24 Hour Vital Signs Date Time Temp Pulse Resp B/P (MAP) Pulse Ox O2 Delivery O2 Flow Rate FiO2 10/13/19 08:00 98.4 99 20 148/87 (107) 95 10/13/19 05:32 121/68 10/13/19 04:00 89 10/13/19 04:00 97.0 88 18 121/67 (85) 97 10/13/19 00:00 97.6 93 18 119/66 (83) 97 10/13/19 00:00 90 10/13/19 00:00 119/66 10/12/19 21:00 Venturi Mask 8.0 Venturi Mask 8.0 10/12/19 20:00 92 10/12/19 20:00 97.0 91 18 117/74 (88) 95 10/12/19 18:00 98/78 10/12/19 16:00 82 10/12/19 16:00 99.1 105 20 110/78 (89) 100 10/12/19 14:53 133/78 10/12/19 12:00 99.4 92 20 133/78 (96) 98 10/12/19 12:00 89 Intake and Output 10/12/19 10/13/19 19:00 07:00 Output Total 850 ml 1400 ml Balance -850 ml -1400 ml Output Urine Total 850 ml 1400 ml # Bowel Movements 1 2 Laboratory Tests 10/13/19 06:11: White Blood Count 13.4H, Red Blood Count 3.12L, Hemoglobin 10.0L, Hematocrit 29.7L, Mean Corpuscular Volume 95, Mean Corpuscular Hemoglobin 32.2H, Mean Corpuscular Hemoglobin Concent 33.8, Red Cell Distribution Width 13.6, Platelet Count 496H, Mean Platelet Volume 5.8L, Neutrophils (%) (Auto) 55.5, Lymphocytes (%) (Auto) 32.3, Monocytes (%) (Auto) 6.8, Eosinophils (%) (Auto) 4.1H, Basophils (%) (Auto) 1.4, Sodium Level 141, Potassium Level 3.7, Chloride Level 103, Carbon Dioxide Level 29, Anion Gap 9, Blood Urea Nitrogen 18, Creatinine 0.8, Estimat Glomerular Filtration Rate > 60, Glucose Level 106, Calcium Level 9.3 Height (Feet): 6 Height (Inches): 0.00 Weight (Pounds): 186 General Appearance: no apparent distress EENT: PERRL/EOMI Neck: normal alignment Cardiovascular: normal rate Respiratory/Chest: decreased breath sounds Abdomen: normal bowel sounds, non tender, soft Extremities: non-tender Terence Anton MD October 13, 2019 09:40
[2019-10-13] MEDS: Sennosides 8.6mg tab GT SCH (09:47)
[2019-10-13] MEDS: Ascorbic Acid 500mg tab GT SCH ×2 (09:47→18:09)
[2019-10-13] MEDS: levETIRAcetam 500mg/5ml Liquid GT SCH ×2 (09:48→20:40)
[2019-10-13] MEDS: Docusate 100mg/10ml Liq GT SCH ×2 (09:48→18:08)
[2019-10-13] MEDS: Ferrous Sulfate 300 MG/5 ML UDC GT SCH ×2 (09:48→18:09)
[2019-10-13] MEDS: Milk of Magnesia 30ml Ud GT SCH (09:49)
[2019-10-13] MEDS: Phenytoin Susp 100mg/4ml GT SCH (09:49)
--- NOTE | 2019-10-13 10:22 | Infectious Diseases Prog Note ---
Assessment/Plan Assessment/Plan IMPRESSION: 1. MDR Acinetobacter sepsis 2. Pneumonia. Negative COVID19 X 3 3. Unstageable pressure ulcer that doesn't seem to be infected . 4. Hypernatremia. 5. Anemia. 6. Advanced dementia. 7. History of diverticulosis. 8. Gastrostomy status. 9. Leukocytosis 10 Phlebitis & cellulitis of R arm RECOMMENDATION: Continue IV Vancomycin R arm venous duplex: No DVT No change in CXR Case was D/W pharmacy Subjective ROS Limited/Unobtainable: Yes Constitutional: Denies: fever Allergies: Coded Allergies: PNEUMOCOCCAL VACCINE (Unverified Allergy, Unknown, 10/07/18) Uncoded Allergies: PNA VACCINE (Allergy, Unknown, 09/30/19) Objective Vital Signs Last 24 Hour Vital Signs Date Time Temp Pulse Resp B/P (MAP) Pulse Ox O2 Delivery O2 Flow Rate FiO2 10/13/19 09:47 99 148/87 10/13/19 08:00 98.4 99 20 148/87 (107) 95 10/13/19 05:32 121/68 10/13/19 04:00 89 10/13/19 04:00 97.0 88 18 121/67 (85) 97 10/13/19 00:00 97.6 93 18 119/66 (83) 97 10/13/19 00:00 90 10/13/19 00:00 119/66 10/12/19 21:00 Venturi Mask 8.0 Venturi Mask 8.0 10/12/19 20:00 92 10/12/19 20:00 97.0 91 18 117/74 (88) 95 10/12/19 18:00 98/78 10/12/19 16:00 82 10/12/19 16:00 99.1 105 20 110/78 (89) 100 10/12/19 14:53 133/78 10/12/19 12:00 99.4 92 20 133/78 (96) 98 10/12/19 12:00 89 Height (Feet): 6 Height (Inches): 0.00 Weight (Pounds): 186 General Appearance: no acute distress HEENT: mucous membranes moist Respiratory/Chest: rhonchi - bilaterally, other - oxygen by mask Cardiovascular: normal rate Abdomen: soft, non tender Extremities: other - decreased R arm edema Neurologic/Psychiatric: aphasia Laboratory Tests Test 10/13/19 06:11 White Blood Count 13.4 K/UL (4.8-10.8) H Red Blood Count 3.12 M/UL (4.70-6.10) L Hemoglobin 10.0 G/DL (14.2-18.0) L Hematocrit 29.7 % (42.0-52.0) L Mean Corpuscular Volume 95 FL (80-99) Mean Corpuscular Hemoglobin 32.2 PG (27.0-31.0) H Mean Corpuscular Hemoglobin Concent 33.8 G/DL (32.0-36.0) Red Cell Distribution Width 13.6 % (11.6-14.8) Platelet Count 496 K/UL (150-450) H Mean Platelet Volume 5.8 FL (6.5-10.1) L Neutrophils (%) (Auto) 55.5 % (45.0-75.0) Lymphocytes (%) (Auto) 32.3 % (20.0-45.0) Monocytes (%) (Auto) 6.8 % (1.0-10.0) Eosinophils (%) (Auto) 4.1 % (0.0-3.0) H Basophils (%) (Auto) 1.4 % (0.0-2.0) Sodium Level 141 MMOL/L (136-145) Potassium Level 3.7 MMOL/L (3.5-5.1) Chloride Level 103 MMOL/L (98-107) Carbon Dioxide Level 29 MMOL/L (21-32) Anion Gap 9 mmol/L (5-15) Blood Urea Nitrogen 18 mg/dL (7-18) Creatinine 0.8 MG/DL (0.55-1.30) Estimat Glomerular Filtration Rate > 60 mL/min (>60) Glucose Level 106 MG/DL (74-106) Calcium Level 9.3 MG/DL (8.5-10.1) Current Medications Medications (Trade) Dose Ordered Sig/Nidhi Route PRN Reason Start Time Stop Time Status Last Admin Dose Admin Acetaminophen (Tylenol) 650 mg Q4H PRN GT Pain/Temp >100.5 10/01/19 03:30 10/30/19 23:29 10/06/19 09:02 Amlodipine Besylate (Norvasc) 10 mg DAILY GT 10/01/19 09:00 10/31/19 08:59 10/13/19 09:47 Ascorbic Acid (Vitamin C) 250 mg BID GT 10/01/19 09:00 10/31/19 08:59 10/13/19 09:47 Clonidine HCl (Catapres Tab) 0.1 mg EVERY 6 HOURS GT 10/01/19 00:00 12/30/19 00:00 10/13/19 05:32 Dextrose (Dextrose 50%) 25 ml Q30M PRN IV Hypoglycemia 09/30/19 22:00 12/29/19 21:59 Dextrose (Dextrose 50%) 50 ml Q30M PRN IV Hypoglycemia 09/30/19 22:00 12/29/19 21:59 Docusate Sodium (Colace) 100 mg TWICE A DAY GT 10/01/19 09:00 10/31/19 08:59 10/13/19 09:48 Donepezil HCl (Aricept) 5 mg BEDTIME GT 10/01/19 21:00 10/31/19 20:59 10/12/19 21:00 Ferrous Sulfate (Feosol) 325 mg BID GT 10/01/19 09:00 12/30/19 08:59 10/13/19 09:48 Heparin Sodium (Porcine) (Heparin 5000 units/ml) 5,000 units EVERY 8 HOURS SUBQ 10/01/19 06:00 11/15/19 05:59 10/13/19 05:34 Insulin Aspart (NovoLOG) BEFORE MEALS AND HS SUBQ 09/30/19 21:51 12/29/19 21:50 10/10/19 06:13 Lansoprazole (Prevacid) 30 mg DAILY GT 10/12/19 09:00 11/11/19 08:59 10/13/19 09:47 Levetiracetam (Keppra) 500 mg Q12HR GT 10/01/19 09:00 11/15/19 08:59 10/13/19 09:48 Magnesium Hydroxide (Mom) 30 ml DAILY GT 10/01/19 09:00 10/31/19 08:59 10/13/19 09:49 Metoclopramide HCl (Reglan) 5 mg Q6H PRN IVP Nausea & Vomiting 10/02/19 09:45 11/01/19 09:44 Multivitamins (Multivitamins) 1 tab DAILY GT 10/01/19 09:00 10/31/19 08:59 10/13/19 09:47 Phenytoin (Dilantin) 300 mg DAILY GT 10/01/19 09:00 11/15/19 08:59 10/13/19 09:49 Sennosides (Senokot) 8.6 mg DAILY GT 10/01/19 09:00 10/31/19 08:59 10/13/19 09:47 Vancomycin HCl (Vanco rx to dose) 1 ea DAILY PRN MISC Per rx protocol 10/09/19 14:15 11/08/19 14:14 Vancomycin/Sodium Chloride 275 ml @ 183.333 mls/hr Q24H IVPB 10/12/19 06:00 10/17/19 05:59 10/13/19 05:32 Curtis Farah MD October 13, 2019 10:22
--- NOTE | 2019-10-13 10:59 | Hematology/Onc Progress Note ---
Assessment/Plan Assessment/Plan # Leukocytosis on admission, rule out covid, given snf hx of multiple covid patinets, with pna noted on imaging --> may be due to infection --> per id --> wbc 28-->11.6-->12.1-->18->19->12.8-->13 --> smear is noted --> abx cefepime/azithro-->polymyxin # Hypercalcemia r/o malignancy, r/o myeloma, elevated on admission, may be 2/2 dehydration --> Ca 10.7-->9.9 --> pth is wnl, spep is also wnl as is upep --> on iv fluids as per pcp --> renal eval prn --> pth on prior admission was 42 # Multiple lung nodules -- in 2017 2 cm pleural-based masslike opacity containing multiple nodular calcifications andadjacent parenchymal linear density persists in the anterolateral periphery of thelateral segment right middle lobe, unchanged. Adjacent small nodular parenchymaldensities persist, unchanged. --> pulm aware --> consider ct chest once better --> Dr. 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 Subjective Allergies: Coded Allergies: PNEUMOCOCCAL VACCINE (Unverified Allergy, Unknown, 10/07/18) Uncoded Allergies: PNA VACCINE (Allergy, Unknown, 09/30/19) All Systems: reviewed and negative except above Subjective 10/01 nonverbal, confused, to be npo, tube feeds on hold, no bleeding, meds reviewed 10/02 remains nonverbal, on gtube feeds, labs noted, no bleeding 10/04 labs reviewed, on polymyxin, cont sq heparin q8 hrs, nc 2l, 10/05 labs still pending, gtube feeds ongoing, no bleeding 10/06 remains confused, with glucerna running, labs reviewed, 99.7f overnight 10/07 labs reviewed, no bleeding, on glucerna, no fc 10/08 nonverbal, with gtube, working, nonfunctional, labs ordered 10/09 no bleeding, no night sweats, no major changes, no fc 10/11 labs are noted, no bleeding or chills, meds reviewed 10/12 no bleeding, remains confused, no night sweats, meds noted Objective Objective Current Medications Medications (Trade) Dose Ordered Sig/Nidhi Route PRN Reason Start Time Stop Time Status Last Admin Dose Admin Acetaminophen (Tylenol) 650 mg Q4H PRN GT Pain/Temp >100.5 10/01/19 03:30 10/30/19 23:29 10/06/19 09:02 Amlodipine Besylate (Norvasc) 10 mg DAILY GT 10/01/19 09:00 10/31/19 08:59 10/13/19 09:47 Ascorbic Acid (Vitamin C) 250 mg BID GT 10/01/19 09:00 10/31/19 08:59 10/13/19 09:47 Clonidine HCl (Catapres Tab) 0.1 mg EVERY 6 HOURS GT 10/01/19 00:00 12/30/19 00:00 10/13/19 05:32 Dextrose (Dextrose 50%) 25 ml Q30M PRN IV Hypoglycemia 09/30/19 22:00 12/29/19 21:59 Dextrose (Dextrose 50%) 50 ml Q30M PRN IV Hypoglycemia 09/30/19 22:00 12/29/19 21:59 Docusate Sodium (Colace) 100 mg TWICE A DAY GT 10/01/19 09:00 10/31/19 08:59 10/13/19 09:48 Donepezil HCl (Aricept) 5 mg BEDTIME GT 10/01/19 21:00 10/31/19 20:59 10/12/19 21:00 Ferrous Sulfate (Feosol) 325 mg BID GT 10/01/19 09:00 12/30/19 08:59 10/13/19 09:48 Heparin Sodium (Porcine) (Heparin 5000 units/ml) 5,000 units EVERY 8 HOURS SUBQ 10/01/19 06:00 11/15/19 05:59 10/13/19 05:34 Insulin Aspart (NovoLOG) BEFORE MEALS AND HS SUBQ 09/30/19 21:51 12/29/19 21:50 10/10/19 06:13 Lansoprazole (Prevacid) 30 mg DAILY GT 10/12/19 09:00 11/11/19 08:59 10/13/19 09:47 Levetiracetam (Keppra) 500 mg Q12HR GT 10/01/19 09:00 11/15/19 08:59 10/13/19 09:48 Magnesium Hydroxide (Mom) 30 ml DAILY GT 10/01/19 09:00 10/31/19 08:59 10/13/19 09:49 Metoclopramide HCl (Reglan) 5 mg Q6H PRN IVP Nausea & Vomiting 10/02/19 09:45 11/01/19 09:44 Multivitamins (Multivitamins) 1 tab DAILY GT 10/01/19 09:00 10/31/19 08:59 10/13/19 09:47 Phenytoin (Dilantin) 300 mg DAILY GT 10/01/19 09:00 11/15/19 08:59 10/13/19 09:49 Sennosides (Senokot) 8.6 mg DAILY GT 10/01/19 09:00 10/31/19 08:59 10/13/19 09:47 Vancomycin HCl (Vanco rx to dose) 1 ea DAILY PRN MISC Per rx protocol 10/09/19 14:15 11/08/19 14:14 Vancomycin/Sodium Chloride 275 ml @ 183.333 mls/hr Q24H IVPB 10/12/19 06:00 10/17/19 05:59 10/13/19 05:32 Last 24 Hour Vital Signs Date Time Temp Pulse Resp B/P (MAP) Pulse Ox O2 Delivery O2 Flow Rate FiO2 10/13/19 09:47 99 148/87 10/13/19 08:00 96 10/13/19 08:00 98.4 99 20 148/87 (107) 95 10/13/19 05:32 121/68 10/13/19 04:00 89 10/13/19 04:00 97.0 88 18 121/67 (85) 97 10/13/19 00:00 97.6 93 18 119/66 (83) 97 10/13/19 00:00 90 10/13/19 00:00 119/66 10/12/19 21:00 Venturi Mask 8.0 Venturi Mask 8.0 10/12/19 20:00 92 10/12/19 20:00 97.0 91 18 117/74 (88) 95 10/12/19 18:00 98/78 10/12/19 16:00 82 10/12/19 16:00 99.1 105 20 110/78 (89) 100 10/12/19 14:53 133/78 10/12/19 12:00 99.4 92 20 133/78 (96) 98 10/12/19 12:00 89 10/12/19 09:00 Venturi Mask 8.0 Venturi Mask 8.0 10/12/19 08:31 92 128/74 10/12/19 08:00 85 10/12/19 08:00 99.1 90 20 128/74 (92) 92 10/12/19 06:44 131/67 10/12/19 04:00 97.5 90 20 116/63 (80) 94 10/12/19 04:00 82 10/12/19 01:01 100/63 10/12/19 00:00 98.1 92 18 100/61 (74) 100 10/12/19 00:00 79 10/11/19 21:00 Nasal Cannula 2.0 10/11/19 20:00 97.9 93 18 101/63 (76) 93 10/11/19 20:00 83 10/11/19 17:36 122/67 10/11/19 16:00 98.0 86 20 122/67 (85) 98 10/11/19 16:00 93 10/11/19 12:06 120/58 10/11/19 12:00 97.9 93 20 120/58 (78) 97 10/11/19 12:00 93 Intake and Output 10/12/19 10/13/19 19:00 07:00 Output Total 850 ml 1400 ml Balance -850 ml -1400 ml Output Urine Total 850 ml 1400 ml # Bowel Movements 1 2 Labs Test 10/11/19 03:28 10/11/19 09:20 10/11/19 15:45 10/12/19 07:40 White Blood Count 12.3 K/UL (4.8-10.8) 12.9 K/UL (4.8-10.8) Red Blood Count 3.11 M/UL (4.70-6.10) 3.00 M/UL (4.70-6.10) Hemoglobin 10.0 G/DL (14.2-18.0) 9.8 G/DL (14.2-18.0) Hematocrit 29.9 % (42.0-52.0) 28.7 % (42.0-52.0) Mean Corpuscular Volume 96 FL (80-99) 95 FL (80-99) Mean Corpuscular Hemoglobin 32.2 PG (27.0-31.0) 32.7 PG (27.0-31.0) Mean Corpuscular Hemoglobin Concent 33.5 G/DL (32.0-36.0) 34.3 G/DL (32.0-36.0) Red Cell Distribution Width 13.7 % (11.6-14.8) 13.4 % (11.6-14.8) Platelet Count 455 K/UL (150-450) 491 K/UL (150-450) Mean Platelet Volume 5.7 FL (6.5-10.1) 6.0 FL (6.5-10.1) Neutrophils (%) (Auto) 63.0 % (45.0-75.0) 60.8 % (45.0-75.0) Lymphocytes (%) (Auto) 26.9 % (20.0-45.0) 25.5 % (20.0-45.0) Monocytes (%) (Auto) 3.9 % (1.0-10.0) 8.2 % (1.0-10.0) Eosinophils (%) (Auto) 5.2 % (0.0-3.0) 4.2 % (0.0-3.0) Basophils (%) (Auto) 0.9 % (0.0-2.0) 1.3 % (0.0-2.0) Erythrocyte Sedimentation Rate 110 MM/HR (0-20) Prothrombin Time 10.0 SEC (9.30-11.50) Prothromb Time International Ratio 0.9 (0.9-1.1) Activated Partial Thromboplast Time 42 SEC (23-33) Sodium Level 138 MMOL/L (136-145) 139 MMOL/L (136-145) Potassium Level 4.5 MMOL/L (3.5-5.1) 4.3 MMOL/L (3.5-5.1) Chloride Level 103 MMOL/L (98-107) 102 MMOL/L (98-107) Carbon Dioxide Level 32 MMOL/L (21-32) 31 MMOL/L (21-32) Anion Gap 4 mmol/L (5-15) 6 mmol/L (5-15) Blood Urea Nitrogen 19 mg/dL (7-18) 19 mg/dL (7-18) Creatinine 0.9 MG/DL (0.55-1.30) 0.9 MG/DL (0.55-1.30) Estimat Glomerular Filtration Rate > 60 mL/min (>60) > 60 mL/min (>60) Glucose Level 159 MG/DL (74-106) 113 MG/DL (74-106) Calcium Level 9.9 MG/DL (8.5-10.1) 9.9 MG/DL (8.5-10.1) Total Bilirubin 0.2 MG/DL (0.2-1.0) Aspartate Amino Transf (AST/SGOT) 69 U/L (15-37) Alanine Aminotransferase (ALT/SGPT) 62 U/L (12-78) Alkaline Phosphatase 300 U/L (46-116) C-Reactive Protein, Quantitative 3.9 mg/dL (0.00-0.90) Total Protein 7.9 G/DL (6.4-8.2) Albumin 2.4 G/DL (3.4-5.0) Globulin 5.5 g/dL Albumin/Globulin Ratio 0.4 (1.0-2.7) Vancomycin Level Trough 21.4 ug/mL (5.0-12.0) 25.5 ug/mL (5.0-12.0) Stool Occult Blood Negative (NEGATIVE) Test 10/13/19 06:11 White Blood Count 13.4 K/UL (4.8-10.8) Red Blood Count 3.12 M/UL (4.70-6.10) Hemoglobin 10.0 G/DL (14.2-18.0) Hematocrit 29.7 % (42.0-52.0) Mean Corpuscular Volume 95 FL (80-99) Mean Corpuscular Hemoglobin 32.2 PG (27.0-31.0) Mean Corpuscular Hemoglobin Concent 33.8 G/DL (32.0-36.0) Red Cell Distribution Width 13.6 % (11.6-14.8) Platelet Count 496 K/UL (150-450) Mean Platelet Volume 5.8 FL (6.5-10.1) Neutrophils (%) (Auto) 55.5 % (45.0-75.0) Lymphocytes (%) (Auto) 32.3 % (20.0-45.0) Monocytes (%) (Auto) 6.8 % (1.0-10.0) Eosinophils (%) (Auto) 4.1 % (0.0-3.0) Basophils (%) (Auto) 1.4 % (0.0-2.0) Sodium Level 141 MMOL/L (136-145) Potassium Level 3.7 MMOL/L (3.5-5.1) Chloride Level 103 MMOL/L (98-107) Carbon Dioxide Level 29 MMOL/L (21-32) Anion Gap 9 mmol/L (5-15) Blood Urea Nitrogen 18 mg/dL (7-18) Creatinine 0.8 MG/DL (0.55-1.30) Estimat Glomerular Filtration Rate > 60 mL/min (>60) Glucose Level 106 MG/DL (74-106) Calcium Level 9.3 MG/DL (8.5-10.1) Height (Feet): 6 Height (Inches): 0.00 Weight (Pounds): 186 Objective vitals: noted gen: nonverbal pulm: ctab, some crackles left side, nc+ heent; nc, at, eomi Cv: rrr, no mgr abd: soft, nt, nd +gtube ext: no cce Ignacio Ponce MD October 13, 2019 10:59
[2019-10-13 12:00] VITALS: BP 155/83
--- NOTE | 2019-10-13 12:12 | Surgery Progress Note ---
Surgery Progress Note Subjective Additional Comments afebrile, HD stable remains confused wbc persistent 13k no n/v dressing changes going well Objective Last 24 Hour Vital Signs Date Time Temp Pulse Resp B/P (MAP) Pulse Ox O2 Delivery O2 Flow Rate FiO2 10/13/19 09:47 99 148/87 10/13/19 09:00 Venturi Mask 8.0 Venturi Mask 8.0 10/13/19 08:00 96 10/13/19 08:00 98.4 99 20 148/87 (107) 95 10/13/19 05:32 121/68 10/13/19 04:00 89 10/13/19 04:00 97.0 88 18 121/67 (85) 97 10/13/19 00:00 97.6 93 18 119/66 (83) 97 10/13/19 00:00 90 10/13/19 00:00 119/66 10/12/19 21:00 Venturi Mask 8.0 Venturi Mask 8.0 10/12/19 20:00 92 10/12/19 20:00 97.0 91 18 117/74 (88) 95 10/12/19 18:00 98/78 10/12/19 16:00 82 10/12/19 16:00 99.1 105 20 110/78 (89) 100 10/12/19 14:53 133/78 I&O Intake and Output 10/12/19 10/13/19 19:00 07:00 Output Total 850 ml 1400 ml Balance -850 ml -1400 ml Output Urine Total 850 ml 1400 ml # Bowel Movements 1 2 Dressing: other Wound: other Drains: other Cardiovascular: RSR Respiratory: decreased breath sounds Abdomen: soft, non-tender, present bowel sounds Extremities: no tenderness, no cyanosis, other Laboratory Tests Test 10/13/19 06:11 White Blood Count 13.4 K/UL (4.8-10.8) H Red Blood Count 3.12 M/UL (4.70-6.10) L Hemoglobin 10.0 G/DL (14.2-18.0) L Hematocrit 29.7 % (42.0-52.0) L Mean Corpuscular Volume 95 FL (80-99) Mean Corpuscular Hemoglobin 32.2 PG (27.0-31.0) H Mean Corpuscular Hemoglobin Concent 33.8 G/DL (32.0-36.0) Red Cell Distribution Width 13.6 % (11.6-14.8) Platelet Count 496 K/UL (150-450) H Mean Platelet Volume 5.8 FL (6.5-10.1) L Neutrophils (%) (Auto) 55.5 % (45.0-75.0) Lymphocytes (%) (Auto) 32.3 % (20.0-45.0) Monocytes (%) (Auto) 6.8 % (1.0-10.0) Eosinophils (%) (Auto) 4.1 % (0.0-3.0) H Basophils (%) (Auto) 1.4 % (0.0-2.0) Sodium Level 141 MMOL/L (136-145) Potassium Level 3.7 MMOL/L (3.5-5.1) Chloride Level 103 MMOL/L (98-107) Carbon Dioxide Level 29 MMOL/L (21-32) Anion Gap 9 mmol/L (5-15) Blood Urea Nitrogen 18 mg/dL (7-18) Creatinine 0.8 MG/DL (0.55-1.30) Estimat Glomerular Filtration Rate > 60 mL/min (>60) Glucose Level 106 MG/DL (74-106) Calcium Level 9.3 MG/DL (8.5-10.1) Ferritin 740 NG/ML (8-388) H Plan Problems: (1) Decubitus skin ulcer Assessment & Plan: Pt presented on admission with multiple pressure injuries. Resolving pressure injury cleft of R ear. Ava epithelial at base of wound with marginal erythema. Non-blanching erythema cleft of L ear. Pt is receiving o2 via nasal cannula, and oxygen tubing padded with gauze to minimize pressure and friction to both ears. Unstageable Sacral Pressure Injury(L)9.4cm x (W)7.8cm. Base of wound is 75% necrotic and and soft, 20% surrounding slough,Marginal erythema and macerated borders. Mild odor noted. Small amt seropurulent exudate.Periwound,skin tone is darker without elevation in skin temp, fluctuance or induration.small area of hyperpigmentation noted to L gluteal cheek. L Heel extending into plantar aspect is boggy with non-blanching erythema. Non-blanching erythema R heel without induration or fluctuance. Xerosis skin both feet. stable with great nursing care d/c planning Tx.Plan: Cleanse Sacral wound with Saline. Apply Therahoney. Apply Moisture Barrier Paste periwound. Cover with Optifoam Drsg. Change every 3 days and prn. Apply Moisture Barrier paste to Perineum, R and L buttocks with each incontinence care. Apply Cavilon Skin Barrier to both heels. Cover each heel with Optifoam drsg. Change every 7 days and prn. Apply Cavilon Skin Barrier to clefts of both R and L ears Daily. Pad Oxygen tubing with gauze around Ears. Keep Oxygen tubing loose around Ears. Reposition at least every 2hours or as tolerated. Off-load heels with pillow. APM/CHRISTOPHER Mattress overlay. (2) Leukocytosis Assessment & Plan: leukocytosis 28k on admission trending down resolving wbc on abx wounds unlikely etiology pna ua noted cont abx as per id wbc 12k trending up again imaging reviewed abx changed per Id will follow with recs wbc trending up cxr with v Apparently increased hazy airspace opacity on background of generalized mild interstitial disease. May be an artifact of under distention but could reflect worsening bilateral infiltrates. Stable bibasilar atelectasis and right basilar consolidation thank you US On the right, grayscale and duplex images demonstrate no evidence of intraluminal thrombus. Normal phasic Doppler waveforms. Patent upstream internal jugular and subclavian veins. Normal compressibility. The cephalic vein is very small. Impression: Negative for upper extremity venous thrombosis (3) Lung mass (4) Protein-calorie malnutrition, severe Assessment & Plan: There is a gastrostomy tube in place. Previously demonstrated nasogastric tube is no longer evident. Bowel gas pattern is unremarkable. No masses or unusual calcifications. There is evidence of a Macedo catheter. There is a right hip prosthesis. There are degenerative changes of the lumbar spine nutritional optimization tube feeds bmi noted alb low cont with feeds DAILY ESTIMATED NEEDS: Needs based on Pulmonary, wounds; 72.5kg 25-30 kcals/kg 3120-7508 total kcals 1.25-1.5 g protein/kg 90-108 g total protein 25-30 mL/kg 3471-5545 total fluid mLs NUTRITION DIAGNOSIS: 1. Increased pro needs r/t wound healing as evidenced by pt adm w/ multiple wounds including unstageable sacral wound, refer to WC eval. 2. Swallowing difficulty r/t dysphagia as evidenced by GT dependent. CURRENT TF:Glucerna 1.5 @ 50ml/hr x 22 hrs (on Dilantin QD) ENTERAL NUTRITION RECOMMENDATIONS: Glucerna 1.5 @55ml/hr x22 hrs (1 hr held before and after Dilantin med) to provide 1210ml, 1815kcal, 100g prot, 918ml free water - Increase goal rate to 55ml/hr to meet 100% est kcal/prot needs - Hold 1 hr before and after Dilantin med - HOB over 30 degrees ADDITIONAL RECOMMENDATIONS: * Wound healing: continue Vit C add KESHIA in 4oz H2O BID via GT * Calibrated bedscale wt for accurate CBW * Check lytes daily w/ TF, replete as needed * Monitor TF tolerance/residuals * DC D5 once TF @ goal (5) Suspected COVID-19 virus infection Assessment & Plan: covid negative x3 so far respiratory improved Right basilar consolidation and atelectasis, could indicate pneumonia. Minimal left basilar atelectasis Gabino Little October 13, 2019 12:12
--- NOTE | 2019-10-13 12:56 | Cardiac Electrophysiology PN ---
Assessment/Plan Assessment/Plan 1. Sinus tachy due to pneumonia and dehydration. On Abx and iv fluids 2. Hypertension on amlodipine 10 mg daily and change Clonidine from 0.1 qid to 0.2 bid 3. PNA and WBC down from 19 to 13 K On IV antibiotic and ruled out for COVID 4. History of seizures, on Keppra. 5. Dysphagia, s/P PEG 6. Hypernatremia and dehydration. Resolved DW RN Subjective Subjective 2 Covids are negative on 10/01 and 10/07/19. GE feeding ongoing.In SR. On abx Objective Last 24 Hour Vital Signs Date Time Temp Pulse Resp B/P (MAP) Pulse Ox O2 Delivery O2 Flow Rate FiO2 10/13/19 12:10 155/83 10/13/19 09:47 99 148/87 10/13/19 09:00 Venturi Mask 8.0 Venturi Mask 8.0 10/13/19 08:00 96 10/13/19 08:00 98.4 99 20 148/87 (107) 95 10/13/19 05:32 121/68 10/13/19 04:00 89 10/13/19 04:00 97.0 88 18 121/67 (85) 97 10/13/19 00:00 97.6 93 18 119/66 (83) 97 10/13/19 00:00 90 10/13/19 00:00 119/66 10/12/19 21:00 Venturi Mask 8.0 Venturi Mask 8.0 10/12/19 20:00 92 10/12/19 20:00 97.0 91 18 117/74 (88) 95 10/12/19 18:00 98/78 10/12/19 16:00 82 10/12/19 16:00 99.1 105 20 110/78 (89) 100 10/12/19 14:53 133/78 Intake and Output 10/12/19 10/13/19 19:00 07:00 Output Total 850 ml 1400 ml Balance -850 ml -1400 ml Output Urine Total 850 ml 1400 ml # Bowel Movements 1 2 Laboratory Tests Test 10/13/19 06:11 White Blood Count 13.4 K/UL (4.8-10.8) H Red Blood Count 3.12 M/UL (4.70-6.10) L Hemoglobin 10.0 G/DL (14.2-18.0) L Hematocrit 29.7 % (42.0-52.0) L Mean Corpuscular Volume 95 FL (80-99) Mean Corpuscular Hemoglobin 32.2 PG (27.0-31.0) H Mean Corpuscular Hemoglobin Concent 33.8 G/DL (32.0-36.0) Red Cell Distribution Width 13.6 % (11.6-14.8) Platelet Count 496 K/UL (150-450) H Mean Platelet Volume 5.8 FL (6.5-10.1) L Neutrophils (%) (Auto) 55.5 % (45.0-75.0) Lymphocytes (%) (Auto) 32.3 % (20.0-45.0) Monocytes (%) (Auto) 6.8 % (1.0-10.0) Eosinophils (%) (Auto) 4.1 % (0.0-3.0) H Basophils (%) (Auto) 1.4 % (0.0-2.0) Sodium Level 141 MMOL/L (136-145) Potassium Level 3.7 MMOL/L (3.5-5.1) Chloride Level 103 MMOL/L (98-107) Carbon Dioxide Level 29 MMOL/L (21-32) Anion Gap 9 mmol/L (5-15) Blood Urea Nitrogen 18 mg/dL (7-18) Creatinine 0.8 MG/DL (0.55-1.30) Estimat Glomerular Filtration Rate > 60 mL/min (>60) Glucose Level 106 MG/DL (74-106) Calcium Level 9.3 MG/DL (8.5-10.1) Ferritin 740 NG/ML (8-388) H Objective HEAD AND NECK: No JVD. LUNGS: Coarse rhonchi. CARDIOVASCULAR: Regular S1 and S2 with no gallop. ABDOMEN: Status post G-tube. EXTREMITIES: No pitting edema. Sajan Campbell MD October 13, 2019 12:56
--- NOTE | 2019-10-13 14:14 | Pulmonology Progress Note ---
Subjective ROS Limited/Unobtainable: Yes Interval Events: None new, requiring more O2 today Constitutional: Denies: fever HEENT: Repors: no symptoms Respiratory: Reports: dry cough, shortness of breath Cardiovascular: Reports: no symptoms Gastrointestinal/Abdominal: Reports: no symptoms Allergies: Coded Allergies: PNEUMOCOCCAL VACCINE (Unverified Allergy, Unknown, 10/07/18) Uncoded Allergies: PNA VACCINE (Allergy, Unknown, 09/30/19) All Systems: reviewed and negative except above Objective Last 24 Hour Vital Signs Date Time Temp Pulse Resp B/P (MAP) Pulse Ox O2 Delivery O2 Flow Rate FiO2 10/13/19 12:10 155/83 10/13/19 09:47 99 148/87 10/13/19 09:00 Venturi Mask 8.0 Venturi Mask 8.0 10/13/19 08:00 96 10/13/19 08:00 98.4 99 20 148/87 (107) 95 10/13/19 05:32 121/68 10/13/19 04:00 89 10/13/19 04:00 97.0 88 18 121/67 (85) 97 10/13/19 00:00 97.6 93 18 119/66 (83) 97 10/13/19 00:00 90 10/13/19 00:00 119/66 10/12/19 21:00 Venturi Mask 8.0 Venturi Mask 8.0 10/12/19 20:00 92 10/12/19 20:00 97.0 91 18 117/74 (88) 95 10/12/19 18:00 98/78 10/12/19 16:00 82 10/12/19 16:00 99.1 105 20 110/78 (89) 100 10/12/19 14:53 133/78 Intake and Output 10/12/19 10/13/19 19:00 07:00 Output Total 850 ml 1400 ml Balance -850 ml -1400 ml Output Urine Total 850 ml 1400 ml # Bowel Movements 1 2 General Appearance: no acute distress HEENT: mucous membranes moist Respiratory/Chest: chest wall non-tender, decreased breath sounds Cardiovascular: normal peripheral pulses, normal rate Abdomen: soft, non tender Extremities: other - decreased R arm edema Skin: other - skin induration in right arm Neurologic/Psychiatric: aphasia Laboratory Tests 10/13/19 06:11: White Blood Count 13.4H, Red Blood Count 3.12L, Hemoglobin 10.0L, Hematocrit 29.7L, Mean Corpuscular Volume 95, Mean Corpuscular Hemoglobin 32.2H, Mean Corpuscular Hemoglobin Concent 33.8, Red Cell Distribution Width 13.6, Platelet Count 496H, Mean Platelet Volume 5.8L, Neutrophils (%) (Auto) 55.5, Lymphocytes (%) (Auto) 32.3, Monocytes (%) (Auto) 6.8, Eosinophils (%) (Auto) 4.1H, Basophils (%) (Auto) 1.4, Sodium Level 141, Potassium Level 3.7, Chloride Level 103, Carbon Dioxide Level 29, Anion Gap 9, Blood Urea Nitrogen 18, Creatinine 0.8, Estimat Glomerular Filtration Rate > 60, Glucose Level 106, Calcium Level 9.3, Ferritin 740H Current Medications Medications (Trade) Dose Ordered Sig/Nidhi Route PRN Reason Start Time Stop Time Status Last Admin Dose Admin Acetaminophen (Tylenol) 650 mg Q4H PRN GT Pain/Temp >100.5 10/01/19 03:30 10/30/19 23:29 10/06/19 09:02 Amlodipine Besylate (Norvasc) 10 mg DAILY GT 10/01/19 09:00 10/31/19 08:59 10/13/19 09:47 Ascorbic Acid (Vitamin C) 250 mg BID GT 10/01/19 09:00 10/31/19 08:59 10/13/19 09:47 Clonidine HCl (Catapres tab) 0.2 mg BID GT 10/13/19 18:00 12/30/19 00:00 Dextrose (Dextrose 50%) 25 ml Q30M PRN IV Hypoglycemia 09/30/19 22:00 12/29/19 21:59 Dextrose (Dextrose 50%) 50 ml Q30M PRN IV Hypoglycemia 09/30/19 22:00 12/29/19 21:59 Docusate Sodium (Colace) 100 mg TWICE A DAY GT 10/01/19 09:00 10/31/19 08:59 10/13/19 09:48 Donepezil HCl (Aricept) 5 mg BEDTIME GT 10/01/19 21:00 10/31/19 20:59 10/12/19 21:00 Ferrous Sulfate (Feosol) 325 mg BID GT 10/01/19 09:00 12/30/19 08:59 10/13/19 09:48 Heparin Sodium (Porcine) (Heparin 5000 units/ml) 5,000 units EVERY 8 HOURS SUBQ 10/01/19 06:00 11/15/19 05:59 10/13/19 05:34 Insulin Aspart (NovoLOG) BEFORE MEALS AND HS SUBQ 09/30/19 21:51 12/29/19 21:50 10/13/19 12:13 Lansoprazole (Prevacid) 30 mg DAILY GT 10/12/19 09:00 11/11/19 08:59 10/13/19 09:47 Levetiracetam (Keppra) 500 mg Q12HR GT 10/01/19 09:00 11/15/19 08:59 10/13/19 09:48 Magnesium Hydroxide (Mom) 30 ml DAILY GT 10/01/19 09:00 10/31/19 08:59 10/13/19 09:49 Metoclopramide HCl (Reglan) 5 mg Q6H PRN IVP Nausea & Vomiting 10/02/19 09:45 11/01/19 09:44 Multivitamins (Multivitamins) 1 tab DAILY GT 10/01/19 09:00 10/31/19 08:59 10/13/19 09:47 Phenytoin (Dilantin) 300 mg DAILY GT 10/01/19 09:00 11/15/19 08:59 10/13/19 09:49 Sennosides (Senokot) 8.6 mg DAILY GT 10/01/19 09:00 10/31/19 08:59 10/13/19 09:47 Vancomycin HCl (Vanco rx to dose) 1 ea DAILY PRN MISC Per rx protocol 10/09/19 14:15 11/08/19 14:14 Vancomycin/Sodium Chloride 275 ml @ 183.333 mls/hr Q24H IVPB 10/12/19 06:00 10/17/19 05:59 10/13/19 05:32 Assessment/Plan Assessment/Plan IMPRESSION: 1. Right lung pneumonia. COVID pcr x 3 negative 2. alf resident. 3. Recent hospitalization at acute hospital. 4. Diabetes mellitus. 5. Hypertension. 6. COPD. 7. Pacemaker. 8. Acintebacter bacteremia DISCUSSION: Continue broad-spectrum antibiotics. Continue oxygen, pulmonary hygiene. I will follow carefully. COVID 19 pcr x 3 negative Requiring ventimask O2 CXR unchanged Kam Mathis Omar Syed MD October 13, 2019 14:14
[2019-10-13] MEDS: Acetaminophen 650mg/20.3ml GT PRN (14:52)
[2019-10-13 16:00] VITALS: BP 129/81
[2019-10-13] MEDS: Solu-MEDROL 40mg Inj IVP SCH (16:13)
[2019-10-13] MEDS ORDERED: Cefepime HCl 2 GM in D5W 55 ML IVPB SCH (18:00)
[2019-10-13] MEDS: cloNIDine 0.2mg Tab GT SCH (18:09)
[2019-10-13 18:45] LABS: APPEARANCE,URINE VERY CLOUDY; BILIRUBIN, URINE NEGATIVE (NEGATIVE); GLUCOSE, URINE (UA) NEGATIVE (NEGATIVE); KETONES,URINE NEGATIVE (NEGATIVE); LEUKOCYTE ESTERASE ,URINE 1+ (NEGATIVE); NITRITE,URINE NEGATIVE (NEGATIVE); PH,URINE 8 (4.5-8.0); PROTEIN,URINE 3+ (NEGATIVE); UROBILINOGEN,URINE NORMAL MG/DL (0.0-1.0)
[2019-10-13 18:46] LABS: COLOR,URINE RED
[2019-10-13] MEDS: Albuterol ud Inhalation HHN SCH (19:00)
[2019-10-13 20:00] VITALS: BP 112/58
[2019-10-13] MEDS: Donepezil 5mg Tab GT SCH (20:40)
--- NOTE | 2019-10-13 21:22 | General Progress Note ---
Assessment/Plan Problem List: (1) Fever ICD Codes: R50.9 - Fever, unspecified SNOMED: 842111841 (2) COPD (chronic obstructive pulmonary disease) ICD Codes: J44.9 - Chronic obstructive pulmonary disease, unspecified SNOMED: 16851023 (3) Severe sepsis ICD Codes: A41.9 - Sepsis, unspecified organism; R65.20 - Severe sepsis without septic shock SNOMED: 01822125 (4) PEG (percutaneous endoscopic gastrostomy) adjustment/replacement/removal ICD Codes: Z43.1 - Encounter for attention to gastrostomy SNOMED: 442953522, 584852463 (5) Protein-calorie malnutrition, severe ICD Codes: E43 - Unspecified severe protein-calorie malnutrition SNOMED: 490776095 (6) Acute febrile illness ICD Codes: R50.9 - Fever, unspecified SNOMED: 607484691 (7) PNA (pneumonia) ICD Codes: J18.9 - Pneumonia, unspecified organism SNOMED: 807467288 (8) Suspected COVID-19 virus infection ICD Codes: Z20.828 - Contact with and (suspected) exposure to other viral communicable diseases SNOMED: 773567094 (9) Congestion secondary to upper respiratory illness Status: unchanged Assessment/Plan: positive blood cx pna malnutrition afebrile persistent leukocytosis resp insuff Subjective ROS Limited/Unobtainable: Yes Allergies: Coded Allergies: PNEUMOCOCCAL VACCINE (Unverified Allergy, Unknown, 10/07/18) Uncoded Allergies: PNA VACCINE (Allergy, Unknown, 09/30/19) Objective Last 24 Hour Vital Signs Date Time Temp Pulse Resp B/P (MAP) Pulse Ox O2 Delivery O2 Flow Rate FiO2 10/13/19 18:09 129/81 10/13/19 16:00 100.0 131 28 129/81 (97) 94 10/13/19 16:00 123 10/13/19 15:22 100.0 10/13/19 15:00 101.8 10/13/19 12:10 155/83 10/13/19 12:00 98.5 138 18 155/83 (107) 94 10/13/19 12:00 136 10/13/19 09:47 99 148/87 10/13/19 09:00 Venturi Mask 8.0 Venturi Mask 8.0 10/13/19 08:00 96 10/13/19 08:00 98.4 99 20 148/87 (107) 95 10/13/19 05:32 121/68 10/13/19 04:00 89 10/13/19 04:00 97.0 88 18 121/67 (85) 97 10/13/19 00:00 97.6 93 18 119/66 (83) 97 10/13/19 00:00 90 10/13/19 00:00 119/66 Intake and Output 10/12/19 10/13/19 19:00 07:00 Output Total 850 ml 1400 ml Balance -850 ml -1400 ml Output Urine Total 850 ml 1400 ml # Bowel Movements 1 2 Laboratory Tests 10/13/19 06:11: White Blood Count 13.4H, Red Blood Count 3.12L, Hemoglobin 10.0L, Hematocrit 29.7L, Mean Corpuscular Volume 95, Mean Corpuscular Hemoglobin 32.2H, Mean Corpuscular Hemoglobin Concent 33.8, Red Cell Distribution Width 13.6, Platelet Count 496H, Mean Platelet Volume 5.8L, Neutrophils (%) (Auto) 55.5, Lymphocytes (%) (Auto) 32.3, Monocytes (%) (Auto) 6.8, Eosinophils (%) (Auto) 4.1H, Basophils (%) (Auto) 1.4, Sodium Level 141, Potassium Level 3.7, Chloride Level 103, Carbon Dioxide Level 29, Anion Gap 9, Blood Urea Nitrogen 18, Creatinine 0.8, Estimat Glomerular Filtration Rate > 60, Glucose Level 106, Calcium Level 9.3, Ferritin 740H 10/13/19 18:29: Urine Color Red, Urine Appearance Very cloudy, Urine pH 8, Urine Specific Solo 1.010, Urine Protein 3+H, Urine Glucose (UA) Negative, Urine Ketones Negative, Urine Blood 5+H, Urine Nitrite Negative, Urine Bilirubin Negative, Urine Urobilinogen Normal, Urine Leukocyte Esterase 1+H, Urine RBC TntcH, Urine WBC 0-2, Urine Squamous Epithelial Cells None, Urine Bacteria Occasional Height (Feet): 6 Height (Inches): 0.00 Weight (Pounds): 186 Konrad Soares MD October 13, 2019 21:22
[2019-10-14] VITALS (7 sets, daily range): BP systolic 110–144; BP diastolic 58–75
[2019-10-14] MEDS: Solu-MEDROL 40mg Inj IVP SCH ×5 (00:26→23:30)
[2019-10-14] MEDS: Albuterol ud Inhalation HHN SCH ×4 (03:25→20:10)
[2019-10-14 04:30] LABS: HEMATOCRIT 32.9 % (42.0-52.0); HEMOGLOBIN 11.3 G/DL (14.2-18.0); MEAN CORPUSCULAR VOLUME 96 FL (80-99); PLATELET COUNT 527 K/UL (150-450); RED BLOOD COUNT 3.41 M/UL (4.70-6.10); RED CELL DISTRIBUTION WIDTH 13.9 % (11.6-14.8); WHITE BLOOD COUNT 20.4 K/UL (4.8-10.8)
[2019-10-14 04:38] LABS: ALANINE AMINOTRANSFERASE 58 U/L (12-78); ALBUMIN 2.8 G/DL (3.4-5.0); ALBUMIN/GLOBULIN RATIO 0.4 (1.0-2.7); ALKALINE PHOSPHATASE 438 U/L (46-116); ANION GAP 7 mmol/L (5-15); ASPARTATE AMINO TRANSFERASE 64 U/L (15-37); BILIRUBIN,TOTAL 0.3 MG/DL (0.2-1.0); BLOOD UREA NITROGEN 24 mg/dL (7-18); CALCIUM 10.5 MG/DL (8.5-10.1); CARBON DIOXIDE 32 MMOL/L (21-32); CHLORIDE 104 MMOL/L (98-107); CREATININE 0.9 MG/DL (0.55-1.30); POTASSIUM 4.6 MMOL/L (3.5-5.1); SODIUM 143 MMOL/L (136-145)
[2019-10-14] MEDS: NovoLOG Insulin Flexpen SUBQ SCH ×4 (06:04→21:00)
[2019-10-14] MEDS: Heparin 5000 units/ml inj SUBQ SCH ×3 (06:04→22:00)
--- NOTE | 2019-10-14 06:36 | General Progress Note ---
Assessment/Plan Status: unchanged Assessment/Plan: 1. Hypertension. 2. Diabetes. 3. COPD. 4. History of pacemaker placement. 5. Dementia. 6. gastroparesis reglan GTF GT flushes repeat labs pending dc will fu Subjective ROS Limited/Unobtainable: No Allergies: Coded Allergies: PNEUMOCOCCAL VACCINE (Unverified Allergy, Unknown, 10/07/18) Uncoded Allergies: PNA VACCINE (Allergy, Unknown, 09/30/19) Objective Last 24 Hour Vital Signs Date Time Temp Pulse Resp B/P (MAP) Pulse Ox O2 Delivery O2 Flow Rate FiO2 10/14/19 04:00 96 10/14/19 04:00 98.5 92 18 110/59 (76) 95 10/14/19 03:22 86 18 100 Venturi Mask 6.0 35 10/14/19 03:00 88 20 100 Venturi Mask 6.0 35 86 18 99 10/14/19 00:00 98.1 93 18 119/63 (81) 98 10/14/19 00:00 85 10/13/19 21:00 100 Venturi Mask 6.0 35 10/13/19 21:00 Venturi Mask 8.0 10/13/19 20:00 99 10/13/19 20:00 98.7 95 19 112/58 (76) 99 10/13/19 18:09 129/81 10/13/19 16:00 100.0 131 28 129/81 (97) 94 10/13/19 16:00 123 10/13/19 15:22 100.0 10/13/19 15:00 101.8 10/13/19 12:10 155/83 10/13/19 12:00 98.5 138 18 155/83 (107) 94 10/13/19 12:00 136 10/13/19 09:47 99 148/87 10/13/19 09:00 Venturi Mask 8.0 Venturi Mask 8.0 10/13/19 08:00 96 10/13/19 08:00 98.4 99 20 148/87 (107) 95 Intake and Output 10/13/19 10/14/19 19:00 07:00 Intake Total 795 ml Output Total 1100 ml 620 ml Balance -305 ml -620 ml Intake Free Water 340 ml IV Total 55 ml Tube Feeding 400 ml Output Urine Total 1100 ml 620 ml # Bowel Movements 2 1 Laboratory Tests 10/13/19 18:29: Urine Color Red, Urine Appearance Very cloudy, Urine pH 8, Urine Specific Newcomb 1.010, Urine Protein 3+H, Urine Glucose (UA) Negative, Urine Ketones Negative, Urine Blood 5+H, Urine Nitrite Negative, Urine Bilirubin Negative, Urine Urobilinogen Normal, Urine Leukocyte Esterase 1+H, Urine RBC TntcH, Urine WBC 0-2, Urine Squamous Epithelial Cells None, Urine Bacteria Occasional 10/14/19 04:05: White Blood Count 20.4#H, Red Blood Count 3.41L, Hemoglobin 11.3L, Hematocrit 32.9L, Mean Corpuscular Volume 96, Mean Corpuscular Hemoglobin 33.0H, Mean Corpuscular Hemoglobin Concent 34.2, Red Cell Distribution Width 13.9, Platelet Count 527H, Mean Platelet Volume 5.9L, Neutrophils (%) (Auto) , Lymphocytes (%) (Auto) , Monocytes (%) (Auto) , Eosinophils (%) (Auto) , Basophils (%) (Auto) , Neutrophils % (Manual) [Pending], Lymphocytes % (Manual) [Pending], Platelet Estimate [Pending], Platelet Morphology [Pending], Erythrocyte Sedimentation Rate 100H, Sodium Level 143, Potassium Level 4.6, Chloride Level 104, Carbon Dioxide Level 32, Anion Gap 7, Blood Urea Nitrogen 24H, Creatinine 0.9, Estimat Glomerular Filtration Rate > 60, Glucose Level 139H, Calcium Level 10.5H, Total Bilirubin 0.3, Aspartate Amino Transf (AST/SGOT) 64H, Alanine Aminotransferase ( ALT/SGPT) 58, Alkaline Phosphatase 438H, C-Reactive Protein, Quantitative 6.6H, Total Protein 9.3H, Albumin 2.8L, Globulin 6.5, Albumin/Globulin Ratio 0.4L, Vancomycin Level Trough 17.2H Height (Feet): 6 Height (Inches): 0.00 Weight (Pounds): 186 General Appearance: alert EENT: normal ENT inspection Neck: supple Cardiovascular: normal rate Respiratory/Chest: decreased breath sounds Abdomen: normal bowel sounds, non tender, soft Extremities: non-tender Terence Anton MD October 14, 2019 06:36
[2019-10-14] MEDS: Vancomycin 1 GM in NS 275 ML IVPB SCH (06:38)
[2019-10-14] MEDS: levETIRAcetam 500mg/5ml Liquid GT SCH ×2 (09:01→21:00)
[2019-10-14] MEDS: Cefepime HCl 1 GM in D5W 55 ML IVPB SCH ×2 (09:01→21:00)
[2019-10-14] MEDS: Milk of Magnesia 30ml Ud GT SCH (09:01)
[2019-10-14] MEDS: Docusate 100mg/10ml Liq GT SCH ×2 (09:02→17:29)
[2019-10-14] MEDS: Phenytoin Susp 100mg/4ml GT SCH (09:02)
[2019-10-14] MEDS: Sennosides 8.6mg tab GT SCH (09:02)
[2019-10-14] MEDS: Ascorbic Acid 500mg tab GT SCH ×2 (09:02→17:29)
[2019-10-14] MEDS: Ferrous Sulfate 300 MG/5 ML UDC GT SCH ×2 (09:02→17:29)
[2019-10-14] MEDS: cloNIDine 0.2mg Tab GT SCH ×2 (09:03→17:29)
--- NOTE | 2019-10-14 10:38 | Hematology/Onc Progress Note ---
Assessment/Plan Assessment/Plan # Leukocytosis on admission, rule out covid, given snf hx of multiple covid patinets, with pna noted on imaging --> may be due to infection --> per id --> wbc 28-->11.6-->12.1-->18->19->12.8-->13->20 ==> on steriods --> smear is noted --> abx cefepime/azithro-->polymyxin -> cefepime/canv # Hypercalcemia r/o malignancy, r/o myeloma, elevated on admission, may be 2/2 dehydration --> Ca 10.7-->9.9 --> pth is wnl, spep is also wnl as is upep --> on iv fluids as per pcp --> renal eval prn --> pth on prior admission was 42 # Multiple lung nodules -- in 2017 2 cm pleural-based masslike opacity containing multiple nodular calcifications andadjacent parenchymal linear density persists in the anterolateral periphery of thelateral segment right middle lobe, unchanged. Adjacent small nodular parenchymaldensities persist, unchanged. --> pulm aware --> consider ct chest once better --> Dr. 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 Subjective Constitutional: Denies: no symptoms, chills, fever, malaise, weakness, other Cardiovascular: Denies: no symptoms, chest pain, edema, irregular heart rate, lightheadedness, palpitations, syncope, other Respiratory: Denies: no symptoms, cough, shortness of breath, SOB with excertion, SOB at rest, sputum, wheezing, other Gastrointestinal/Abdominal: Denies: no symptoms, abdomen distended, abdominal pain, black stools, tarry stools, blood in stool, constipated, diarrhea, difficulty swallowing, nausea, poor appetite, poor fluid intake, rectal bleeding , vomiting, other Neurologic/Psychiatric: Denies: no symptoms, anxiety, depressed, emotional problems, headache, numbness, paresthesia, pre-existing deficit, seizure, tingling, tremors, weakness, other Endocrine: Denies: no symptoms, excessive sweating, flushing, intolerance to cold, intolerance to heat, increased hunger, increased thirst, increased urine, unexplained weight gain, unexplained weight loss, other Allergies: Coded Allergies: PNEUMOCOCCAL VACCINE (Unverified Allergy, Unknown, 10/07/18) Uncoded Allergies: PNA VACCINE (Allergy, Unknown, 09/30/19) Subjective 10/01 nonverbal, confused, to be npo, tube feeds on hold, no bleeding, meds reviewed 10/02 remains nonverbal, on gtube feeds, labs noted, no bleeding 10/04 labs reviewed, on polymyxin, cont sq heparin q8 hrs, nc 2l, 10/05 labs still pending, gtube feeds ongoing, no bleeding 10/06 remains confused, with glucerna running, labs reviewed, 99.7f overnight 10/07 labs reviewed, no bleeding, on glucerna, no fc 10/08 nonverbal, with gtube, working, nonfunctional, labs ordered 10/09 no bleeding, no night sweats, no major changes, no fc 10/11 labs are noted, no bleeding or chills, meds reviewed 10/12 no bleeding, remains confused, no night sweats, meds noted 10/13 labs reviewed, no bleeding or night sweats, meds noted, wbc higher Objective Objective Current Medications Medications (Trade) Dose Ordered Sig/Nidhi Route PRN Reason Start Time Stop Time Status Last Admin Dose Admin Acetaminophen (Tylenol) 650 mg Q4H PRN GT Pain/Temp >100.5 10/01/19 03:30 10/30/19 23:29 10/13/19 14:52 Albuterol Sulfate (Proventil) 2.5 mg Q6HRT HHN 10/14/19 13:00 10/18/19 15:59 Amlodipine Besylate (Norvasc) 10 mg DAILY GT 10/01/19 09:00 10/31/19 08:59 10/14/19 09:03 Ascorbic Acid (Vitamin C) 250 mg BID GT 10/01/19 09:00 10/31/19 08:59 10/14/19 09:02 Cefepime HCl 1 gm/ Dextrose 55 ml @ 110 mls/hr EVERY 12 HOURS IVPB 10/14/19 09:00 10/21/19 08:59 10/14/19 09:01 Clonidine HCl (Catapres tab) 0.2 mg BID GT 10/13/19 18:00 12/30/19 00:00 10/14/19 09:03 Dextrose (Dextrose 50%) 25 ml Q30M PRN IV Hypoglycemia 09/30/19 22:00 12/29/19 21:59 Dextrose (Dextrose 50%) 50 ml Q30M PRN IV Hypoglycemia 09/30/19 22:00 12/29/19 21:59 Docusate Sodium (Colace) 100 mg TWICE A DAY GT 10/01/19 09:00 10/31/19 08:59 10/14/19 09:02 Donepezil HCl (Aricept) 5 mg BEDTIME GT 10/01/19 21:00 10/31/19 20:59 10/13/19 20:40 Ferrous Sulfate (Feosol) 325 mg BID GT 10/01/19 09:00 12/30/19 08:59 10/14/19 09:02 Heparin Sodium (Porcine) (Heparin 5000 units/ml) 5,000 units EVERY 8 HOURS SUBQ 10/01/19 06:00 11/15/19 05:59 10/14/19 06:04 Insulin Aspart (NovoLOG) BEFORE MEALS AND HS SUBQ 09/30/19 21:51 12/29/19 21:50 10/13/19 20:49 Lansoprazole (Prevacid) 30 mg DAILY GT 10/12/19 09:00 11/11/19 08:59 10/14/19 09:02 Levetiracetam (Keppra) 500 mg Q12HR GT 10/01/19 09:00 11/15/19 08:59 10/14/19 09:01 Magnesium Hydroxide (Mom) 30 ml DAILY GT 10/01/19 09:00 10/31/19 08:59 10/14/19 09:01 Methylprednisolone Sodium Succinate (Solu-MEDROL) 40 mg EVERY 6 HOURS IVP 10/13/19 16:00 01/11/20 15:59 10/14/19 06:00 Metoclopramide HCl (Reglan) 5 mg Q6H PRN IVP Nausea & Vomiting 10/02/19 09:45 11/01/19 09:44 Multivitamins (Multivitamins) 1 tab DAILY GT 10/01/19 09:00 10/31/19 08:59 10/14/19 09:02 Phenytoin (Dilantin) 300 mg DAILY GT 10/01/19 09:00 11/15/19 08:59 10/14/19 09:02 Sennosides (Senokot) 8.6 mg DAILY GT 10/01/19 09:00 10/31/19 08:59 10/14/19 09:02 Vancomycin HCl (Vanco rx to dose) 1 ea DAILY PRN MISC Per rx protocol 10/09/19 14:15 11/08/19 14:14 Vancomycin HCl 1 gm/Sodium Chloride 275 ml @ 183.708 mls/hr Q24H IVPB 10/14/19 06:00 10/19/19 05:59 10/14/19 06:38 Last 24 Hour Vital Signs Date Time Temp Pulse Resp B/P (MAP) Pulse Ox O2 Delivery O2 Flow Rate FiO2 10/14/19 09:03 144/73 10/14/19 09:03 100 144/73 10/14/19 09:00 Venturi Mask 6.0 Venturi Mask 6.0 10/14/19 08:00 97.9 100 20 144/73 (96) 92 10/14/19 06:55 86 18 99 Venturi Mask 6.0 35 84 18 97 10/14/19 06:45 97 Venturi Mask 6.0 35 10/14/19 04:00 96 10/14/19 04:00 98.5 92 18 110/59 (76) 95 10/14/19 03:22 86 18 100 Venturi Mask 6.0 35 10/14/19 03:00 88 20 100 Venturi Mask 6.0 35 86 18 99 5/12/20 00:00 98.1 93 18 119/63 (81) 98 10/14/19 00:00 85 10/13/19 21:00 100 Venturi Mask 6.0 35 10/13/19 21:00 Venturi Mask 8.0 10/13/19 20:00 99 10/13/19 20:00 98.7 95 19 112/58 (76) 99 10/13/19 18:09 129/81 10/13/19 16:00 100.0 131 28 129/81 (97) 94 10/13/19 16:00 123 10/13/19 15:22 100.0 10/13/19 15:00 101.8 10/13/19 12:10 155/83 10/13/19 12:00 98.5 138 18 155/83 (107) 94 10/13/19 12:00 136 10/13/19 09:47 99 148/87 10/13/19 09:00 Venturi Mask 8.0 Venturi Mask 8.0 10/13/19 08:00 96 10/13/19 08:00 98.4 99 20 148/87 (107) 95 10/13/19 05:32 121/68 10/13/19 04:00 89 10/13/19 04:00 97.0 88 18 121/67 (85) 97 10/13/19 00:00 97.6 93 18 119/66 (83) 97 10/13/19 00:00 90 10/13/19 00:00 119/66 10/12/19 21:00 Venturi Mask 8.0 Venturi Mask 8.0 10/12/19 20:00 92 10/12/19 20:00 97.0 91 18 117/74 (88) 95 10/12/19 18:00 98/78 10/12/19 16:00 82 10/12/19 16:00 99.1 105 20 110/78 (89) 100 10/12/19 14:53 133/78 10/12/19 12:00 99.4 92 20 133/78 (96) 98 10/12/19 12:00 89 Intake and Output 10/13/19 10/14/19 19:00 07:00 Intake Total 795 ml Output Total 1100 ml 620 ml Balance -305 ml -620 ml Intake Free Water 340 ml IV Total 55 ml Tube Feeding 400 ml Output Urine Total 1100 ml 620 ml # Bowel Movements 2 1 Labs Test 10/11/19 15:45 10/12/19 07:40 10/13/19 06:11 10/13/19 18:29 Vancomycin Level Trough 25.5 ug/mL (5.0-12.0) White Blood Count 12.9 K/UL (4.8-10.8) 13.4 K/UL (4.8-10.8) Red Blood Count 3.00 M/UL (4.70-6.10) 3.12 M/UL (4.70-6.10) Hemoglobin 9.8 G/DL (14.2-18.0) 10.0 G/DL (14.2-18.0) Hematocrit 28.7 % (42.0-52.0) 29.7 % (42.0-52.0) Mean Corpuscular Volume 95 FL (80-99) 95 FL (80-99) Mean Corpuscular Hemoglobin 32.7 PG (27.0-31.0) 32.2 PG (27.0-31.0) Mean Corpuscular Hemoglobin Concent 34.3 G/DL (32.0-36.0) 33.8 G/DL (32.0-36.0) Red Cell Distribution Width 13.4 % (11.6-14.8) 13.6 % (11.6-14.8) Platelet Count 491 K/UL (150-450) 496 K/UL (150-450) Mean Platelet Volume 6.0 FL (6.5-10.1) 5.8 FL (6.5-10.1) Neutrophils (%) (Auto) 60.8 % (45.0-75.0) 55.5 % (45.0-75.0) Lymphocytes (%) (Auto) 25.5 % (20.0-45.0) 32.3 % (20.0-45.0) Monocytes (%) (Auto) 8.2 % (1.0-10.0) 6.8 % (1.0-10.0) Eosinophils (%) (Auto) 4.2 % (0.0-3.0) 4.1 % (0.0-3.0) Basophils (%) (Auto) 1.3 % (0.0-2.0) 1.4 % (0.0-2.0) Sodium Level 139 MMOL/L (136-145) 141 MMOL/L (136-145) Potassium Level 4.3 MMOL/L (3.5-5.1) 3.7 MMOL/L (3.5-5.1) Chloride Level 102 MMOL/L (98-107) 103 MMOL/L (98-107) Carbon Dioxide Level 31 MMOL/L (21-32) 29 MMOL/L (21-32) Anion Gap 6 mmol/L (5-15) 9 mmol/L (5-15) Blood Urea Nitrogen 19 mg/dL (7-18) 18 mg/dL (7-18) Creatinine 0.9 MG/DL (0.55-1.30) 0.8 MG/DL (0.55-1.30) Estimat Glomerular Filtration Rate > 60 mL/min (>60) > 60 mL/min (>60) Glucose Level 113 MG/DL (74-106) 106 MG/DL (74-106) Calcium Level 9.9 MG/DL (8.5-10.1) 9.3 MG/DL (8.5-10.1) Ferritin 740 NG/ML (8-388) Urine Color Red Urine Appearance Very cloudy Urine pH 8 (4.5-8.0) Urine Specific [place] 1.010 (1.005-1.035) Urine Protein 3+ (NEGATIVE) Urine Glucose (UA) Negative (NEGATIVE) Urine Ketones Negative (NEGATIVE) Urine Blood 5+ (NEGATIVE) Urine Nitrite Negative (NEGATIVE) Urine Bilirubin Negative (NEGATIVE) Urine Urobilinogen Normal MG/DL (0.0-1.0) Urine Leukocyte Esterase 1+ (NEGATIVE) Urine RBC Tntc /HPF (0 - 0) Urine WBC 0-2 /HPF (0 - 0) Urine Squamous Epithelial Cells None /LPF (NONE/OCC) Urine Bacteria Occasional /HPF (NONE) Test 10/14/19 04:05 White Blood Count 20.4 K/UL (4.8-10.8) Red Blood Count 3.41 M/UL (4.70-6.10) Hemoglobin 11.3 G/DL (14.2-18.0) Hematocrit 32.9 % (42.0-52.0) Mean Corpuscular Volume 96 FL (80-99) Mean Corpuscular Hemoglobin 33.0 PG (27.0-31.0) Mean Corpuscular Hemoglobin Concent 34.2 G/DL (32.0-36.0) Red Cell Distribution Width 13.9 % (11.6-14.8) Platelet Count 527 K/UL (150-450) Mean Platelet Volume 5.9 FL (6.5-10.1) Neutrophils (%) (Auto) % (45.0-75.0) Lymphocytes (%) (Auto) % (20.0-45.0) Monocytes (%) (Auto) % (1.0-10.0) Eosinophils (%) (Auto) % (0.0-3.0) Basophils (%) (Auto) % (0.0-2.0) Differential Total Cells Counted 100 Neutrophils % (Manual) 83 % (45-75) Lymphocytes % (Manual) 14 % (20-45) Monocytes % (Manual) 0 % (1-10) Eosinophils % (Manual) 0 % (0-3) Basophils % (Manual) 0 % (0-2) Band Neutrophils 3 % (0-8) Nucleated Red Blood Cells 1 /100 WBC Platelet Estimate Increased Platelet Morphology Normal Red Blood Cell Morphology Normal Erythrocyte Sedimentation Rate 100 MM/HR (0-20) Sodium Level 143 MMOL/L (136-145) Potassium Level 4.6 MMOL/L (3.5-5.1) Chloride Level 104 MMOL/L (98-107) Carbon Dioxide Level 32 MMOL/L (21-32) Anion Gap 7 mmol/L (5-15) Blood Urea Nitrogen 24 mg/dL (7-18) Creatinine 0.9 MG/DL (0.55-1.30) Estimat Glomerular Filtration Rate > 60 mL/min (>60) Glucose Level 139 MG/DL (74-106) Calcium Level 10.5 MG/DL (8.5-10.1) Total Bilirubin 0.3 MG/DL (0.2-1.0) Aspartate Amino Transf (AST/SGOT) 64 U/L (15-37) Alanine Aminotransferase (ALT/SGPT) 58 U/L (12-78) Alkaline Phosphatase 438 U/L (46-116) C-Reactive Protein, Quantitative 6.6 mg/dL (0.00-0.90) Total Protein 9.3 G/DL (6.4-8.2) Albumin 2.8 G/DL (3.4-5.0) Globulin 6.5 g/dL Albumin/Globulin Ratio 0.4 (1.0-2.7) Vancomycin Level Trough 17.2 ug/mL (5.0-12.0) Micro Microbiology Date/Time Source Procedure Growth Status 10/13/19 18:29 Indwelling Cath Urine Culture - Preliminary Resulted Height (Feet): 6 Height (Inches): 0.00 Weight (Pounds): 186 Objective vitals: noted gen: nonverbal pulm: ctab, some crackles left side, nc+ heent; nc, at, eomi Cv: rrr, no mgr abd: soft, nt, nd +gtube ext: no cce Ignacio Ponce MD October 14, 2019 10:38
--- NOTE | 2019-10-14 11:31 | Cardiac Electrophysiology PN ---
Assessment/Plan Assessment/Plan 1. Sinus tachy due to pneumonia and dehydration. On Abx and iv fluids 2. Hypertension on amlodipine 10 mg daily and Clonidine 0.2 bid 3. PNA and WBC down from 19 to 13 K On IV antibiotic and ruled out for COVID 4. History of seizures, on Keppra. 5. Dysphagia, s/P PEG 6. Hypernatremia and dehydration. 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 GE feeding ongoing.In SR. On 6 liter Venturi Mask. Khanh eval pending Objective Last 24 Hour Vital Signs Date Time Temp Pulse Resp B/P (MAP) Pulse Ox O2 Delivery O2 Flow Rate FiO2 10/14/19 09:03 144/73 10/14/19 09:03 100 144/73 10/14/19 09:00 Venturi Mask 6.0 Venturi Mask 6.0 10/14/19 08:00 97.9 100 20 144/73 (96) 92 10/14/19 07:58 94 10/14/19 06:55 86 18 99 Venturi Mask 6.0 35 84 18 97 10/14/19 06:45 97 Venturi Mask 6.0 35 10/14/19 04:00 96 10/14/19 04:00 98.5 92 18 110/59 (76) 95 10/14/19 03:22 86 18 100 Venturi Mask 6.0 35 10/14/19 03:00 88 20 100 Venturi Mask 6.0 35 86 18 99 10/14/19 00:00 98.1 93 18 119/63 (81) 98 10/14/19 00:00 85 10/13/19 21:00 100 Venturi Mask 6.0 35 10/13/19 21:00 Venturi Mask 8.0 10/13/19 20:00 99 10/13/19 20:00 98.7 95 19 112/58 (76) 99 10/13/19 18:09 129/81 10/13/19 16:00 100.0 131 28 129/81 (97) 94 10/13/19 16:00 123 10/13/19 15:22 100.0 10/13/19 15:00 101.8 10/13/19 12:10 155/83 10/13/19 12:00 98.5 138 18 155/83 (107) 94 10/13/19 12:00 136 Intake and Output 10/13/19 10/14/19 19:00 07:00 Intake Total 795 ml Output Total 1100 ml 620 ml Balance -305 ml -620 ml Intake Free Water 340 ml IV Total 55 ml Tube Feeding 400 ml Output Urine Total 1100 ml 620 ml # Bowel Movements 2 1 Laboratory Tests Test 10/13/19 18:29 10/14/19 04:05 Urine Color Red Urine Appearance Very cloudy Urine pH 8 (4.5-8.0) Urine Specific [place] 1.010 (1.005-1.035) Urine Protein 3+ (NEGATIVE) H Urine Glucose (UA) Negative (NEGATIVE) Urine Ketones Negative (NEGATIVE) Urine Blood 5+ (NEGATIVE) H Urine Nitrite Negative (NEGATIVE) Urine Bilirubin Negative (NEGATIVE) Urine Urobilinogen Normal MG/DL (0.0-1.0) Urine Leukocyte Esterase 1+ (NEGATIVE) H Urine RBC Tntc /HPF (0 - 0) H Urine WBC 0-2 /HPF (0 - 0) Urine Squamous Epithelial Cells None /LPF (NONE/OCC) Urine Bacteria Occasional /HPF (NONE) White Blood Count 20.4 K/UL (4.8-10.8) #H Red Blood Count 3.41 M/UL (4.70-6.10) L Hemoglobin 11.3 G/DL (14.2-18.0) L Hematocrit 32.9 % (42.0-52.0) L Mean Corpuscular Volume 96 FL (80-99) Mean Corpuscular Hemoglobin 33.0 PG (27.0-31.0) H Mean Corpuscular Hemoglobin Concent 34.2 G/DL (32.0-36.0) Red Cell Distribution Width 13.9 % (11.6-14.8) Platelet Count 527 K/UL (150-450) H Mean Platelet Volume 5.9 FL (6.5-10.1) L Neutrophils (%) (Auto) % (45.0-75.0) Lymphocytes (%) (Auto) % (20.0-45.0) Monocytes (%) (Auto) % (1.0-10.0) Eosinophils (%) (Auto) % (0.0-3.0) Basophils (%) (Auto) % (0.0-2.0) Differential Total Cells Counted 100 Neutrophils % (Manual) 83 % (45-75) H Lymphocytes % (Manual) 14 % (20-45) L Monocytes % (Manual) 0 % (1-10) L Eosinophils % (Manual) 0 % (0-3) Basophils % (Manual) 0 % (0-2) Band Neutrophils 3 % (0-8) Nucleated Red Blood Cells 1 /100 WBC Platelet Estimate Increased H Platelet Morphology Normal Red Blood Cell Morphology Normal Erythrocyte Sedimentation Rate 100 MM/HR (0-20) H Sodium Level 143 MMOL/L (136-145) Potassium Level 4.6 MMOL/L (3.5-5.1) Chloride Level 104 MMOL/L (98-107) Carbon Dioxide Level 32 MMOL/L (21-32) Anion Gap 7 mmol/L (5-15) Blood Urea Nitrogen 24 mg/dL (7-18) H Creatinine 0.9 MG/DL (0.55-1.30) Estimat Glomerular Filtration Rate > 60 mL/min (>60) Glucose Level 139 MG/DL (74-106) H Calcium Level 10.5 MG/DL (8.5-10.1) H Total Bilirubin 0.3 MG/DL (0.2-1.0) Aspartate Amino Transf (AST/SGOT) 64 U/L (15-37) H Alanine Aminotransferase (ALT/SGPT) 58 U/L (12-78) Alkaline Phosphatase 438 U/L (46-116) H C-Reactive Protein, Quantitative 6.6 mg/dL (0.00-0.90) H Total Protein 9.3 G/DL (6.4-8.2) H Albumin 2.8 G/DL (3.4-5.0) L Globulin 6.5 g/dL Albumin/Globulin Ratio 0.4 (1.0-2.7) L Vancomycin Level Trough 17.2 ug/mL (5.0-12.0) H Microbiology Date/Time Source Procedure Growth Status 10/13/19 18:29 Indwelling Cath Urine Culture - Preliminary Resulted Objective HEAD AND NECK: No JVD. LUNGS: Coarse rhonchi. CARDIOVASCULAR: Regular S1 and S2 with no gallop. ABDOMEN: Status post G-tube. EXTREMITIES: No pitting edema. Sajan Campbell MD October 14, 2019 11:30
--- NOTE | 2019-10-14 11:41 | Surgery Progress Note ---
Surgery Progress Note Subjective Additional Comments patient resting comfortable. no n/v/f/c leukocytosis likely steroid related esr / crp noted Objective Last 24 Hour Vital Signs Date Time Temp Pulse Resp B/P (MAP) Pulse Ox O2 Delivery O2 Flow Rate FiO2 10/14/19 09:03 144/73 10/14/19 09:03 100 144/73 10/14/19 09:00 Venturi Mask 6.0 Venturi Mask 6.0 10/14/19 08:00 97.9 100 20 144/73 (96) 92 10/14/19 07:58 94 10/14/19 06:55 86 18 99 Venturi Mask 6.0 35 84 18 97 10/14/19 06:45 97 Venturi Mask 6.0 35 10/14/19 04:00 96 10/14/19 04:00 98.5 92 18 110/59 (76) 95 10/14/19 03:22 86 18 100 Venturi Mask 6.0 35 10/14/19 03:00 88 20 100 Venturi Mask 6.0 35 86 18 99 10/14/19 00:00 98.1 93 18 119/63 (81) 98 10/14/19 00:00 85 10/13/19 21:00 100 Venturi Mask 6.0 35 10/13/19 21:00 Venturi Mask 8.0 10/13/19 20:00 99 10/13/19 20:00 98.7 95 19 112/58 (76) 99 10/13/19 18:09 129/81 10/13/19 16:00 100.0 131 28 129/81 (97) 94 10/13/19 16:00 123 10/13/19 15:22 100.0 10/13/19 15:00 101.8 10/13/19 12:10 155/83 10/13/19 12:00 98.5 138 18 155/83 (107) 94 10/13/19 12:00 136 I&O Intake and Output 10/13/19 10/14/19 19:00 07:00 Intake Total 795 ml Output Total 1100 ml 620 ml Balance -305 ml -620 ml Intake Free Water 340 ml IV Total 55 ml Tube Feeding 400 ml Output Urine Total 1100 ml 620 ml # Bowel Movements 2 1 Dressing: saturated Wound: other Drains: other Cardiovascular: RSR Respiratory: decreased breath sounds Abdomen: soft, non-tender, present bowel sounds, non-distended Extremities: no tenderness, no cyanosis Laboratory Tests Test 10/13/19 18:29 10/14/19 04:05 Urine Color Red Urine Appearance Very cloudy Urine pH 8 (4.5-8.0) Urine Specific [place] 1.010 (1.005-1.035) Urine Protein 3+ (NEGATIVE) H Urine Glucose (UA) Negative (NEGATIVE) Urine Ketones Negative (NEGATIVE) Urine Blood 5+ (NEGATIVE) H Urine Nitrite Negative (NEGATIVE) Urine Bilirubin Negative (NEGATIVE) Urine Urobilinogen Normal MG/DL (0.0-1.0) Urine Leukocyte Esterase 1+ (NEGATIVE) H Urine RBC Tntc /HPF (0 - 0) H Urine WBC 0-2 /HPF (0 - 0) Urine Squamous Epithelial Cells None /LPF (NONE/OCC) Urine Bacteria Occasional /HPF (NONE) White Blood Count 20.4 K/UL (4.8-10.8) #H Red Blood Count 3.41 M/UL (4.70-6.10) L Hemoglobin 11.3 G/DL (14.2-18.0) L Hematocrit 32.9 % (42.0-52.0) L Mean Corpuscular Volume 96 FL (80-99) Mean Corpuscular Hemoglobin 33.0 PG (27.0-31.0) H Mean Corpuscular Hemoglobin Concent 34.2 G/DL (32.0-36.0) Red Cell Distribution Width 13.9 % (11.6-14.8) Platelet Count 527 K/UL (150-450) H Mean Platelet Volume 5.9 FL (6.5-10.1) L Neutrophils (%) (Auto) % (45.0-75.0) Lymphocytes (%) (Auto) % (20.0-45.0) Monocytes (%) (Auto) % (1.0-10.0) Eosinophils (%) (Auto) % (0.0-3.0) Basophils (%) (Auto) % (0.0-2.0) Differential Total Cells Counted 100 Neutrophils % (Manual) 83 % (45-75) H Lymphocytes % (Manual) 14 % (20-45) L Monocytes % (Manual) 0 % (1-10) L Eosinophils % (Manual) 0 % (0-3) Basophils % (Manual) 0 % (0-2) Band Neutrophils 3 % (0-8) Nucleated Red Blood Cells 1 /100 WBC Platelet Estimate Increased H Platelet Morphology Normal Red Blood Cell Morphology Normal Erythrocyte Sedimentation Rate 100 MM/HR (0-20) H Sodium Level 143 MMOL/L (136-145) Potassium Level 4.6 MMOL/L (3.5-5.1) Chloride Level 104 MMOL/L (98-107) Carbon Dioxide Level 32 MMOL/L (21-32) Anion Gap 7 mmol/L (5-15) Blood Urea Nitrogen 24 mg/dL (7-18) H Creatinine 0.9 MG/DL (0.55-1.30) Estimat Glomerular Filtration Rate > 60 mL/min (>60) Glucose Level 139 MG/DL (74-106) H Calcium Level 10.5 MG/DL (8.5-10.1) H Total Bilirubin 0.3 MG/DL (0.2-1.0) Aspartate Amino Transf (AST/SGOT) 64 U/L (15-37) H Alanine Aminotransferase (ALT/SGPT) 58 U/L (12-78) Alkaline Phosphatase 438 U/L (46-116) H C-Reactive Protein, Quantitative 6.6 mg/dL (0.00-0.90) H Total Protein 9.3 G/DL (6.4-8.2) H Albumin 2.8 G/DL (3.4-5.0) L Globulin 6.5 g/dL Albumin/Globulin Ratio 0.4 (1.0-2.7) L Vancomycin Level Trough 17.2 ug/mL (5.0-12.0) H Plan Problems: (1) Decubitus skin ulcer Assessment & Plan: Pt presented on admission with multiple pressure injuries. Resolving pressure injury cleft of R ear. [place] epithelial at base of wound with marginal erythema. Non-blanching erythema cleft of L ear. Pt is receiving o2 via nasal cannula, and oxygen tubing padded with gauze to minimize pressure and friction to both ears. Unstageable Sacral Pressure Injury(L)9.4cm x (W)7.8cm. Base of wound is 75% necrotic and and soft, 20% surrounding slough,Marginal erythema and macerated borders. Mild odor noted. Small amt seropurulent exudate.Periwound,skin tone is darker without elevation in skin temp, fluctuance or induration.small area of hyperpigmentation noted to L gluteal cheek. L Heel extending into plantar aspect is boggy with non-blanching erythema. Non-blanching erythema R heel without induration or fluctuance. Xerosis skin both feet. stable with [facility] nursing care d/c planning Tx.Plan: Cleanse Sacral wound with Saline. Apply Therahoney. Apply Moisture Barrier Paste periwound. Cover with Optifoam Drsg. Change every 3 days and prn. Apply Moisture Barrier paste to Perineum, R and L buttocks with each incontinence care. Apply Cavilon Skin Barrier to both heels. Cover each heel with Optifoam drsg. Change every 7 days and prn. Apply Cavilon Skin Barrier to clefts of both R and L ears Daily. Pad Oxygen tubing with gauze around Ears. Keep Oxygen tubing loose around Ears. Reposition at least every 2hours or as tolerated. Off-load heels with pillow. APM/CHRISTOPHER Mattress overlay. (2) Leukocytosis Assessment & Plan: leukocytosis 28k on admission trending down resolving wbc on abx wounds unlikely etiology pna ua noted cont abx as per id wbc 12k trending up again imaging reviewed abx changed per Id will follow with recs wbc trending up - likely steroid related otherwise stable cxr with v Apparently increased hazy airspace opacity on background of generalized mild interstitial disease. May be an artifact of under distention but could reflect worsening bilateral infiltrates. Stable bibasilar atelectasis and right basilar consolidation thank you US On the right, grayscale and duplex images demonstrate no evidence of intraluminal thrombus. Normal phasic Doppler waveforms. Patent upstream internal jugular and subclavian veins. Normal compressibility. The cephalic vein is very small. Impression: Negative for upper extremity venous thrombosis (3) Lung mass (4) Protein-calorie malnutrition, severe Assessment & Plan: There is a gastrostomy tube in place. Previously demonstrated nasogastric tube is no longer evident. Bowel gas pattern is unremarkable. No masses or unusual calcifications. There is evidence of a Macedo catheter. There is a right hip prosthesis. There are degenerative changes of the lumbar spine nutritional optimization tube feeds bmi noted alb low cont with feeds DAILY ESTIMATED NEEDS: Needs based on Pulmonary, wounds; 72.5kg 25-30 kcals/kg 3632-7701 total kcals 1.25-1.5 g protein/kg 90-108 g total protein 25-30 mL/kg 1651-8646 total fluid mLs NUTRITION DIAGNOSIS: 1. Increased pro needs r/t wound healing as evidenced by pt adm w/ multiple wounds including unstageable sacral wound, refer to WC eval. 2. Swallowing difficulty r/t dysphagia as evidenced by GT dependent. CURRENT TF:Glucerna 1.5 @ 50ml/hr x 22 hrs (on Dilantin QD) ENTERAL NUTRITION RECOMMENDATIONS: Glucerna 1.5 @55ml/hr x22 hrs (1 hr held before and after Dilantin med) to provide 1210ml, 1815kcal, 100g prot, 918ml free water - Increase goal rate to 55ml/hr to meet 100% est kcal/prot needs - Hold 1 hr before and after Dilantin med - HOB over 30 degrees ADDITIONAL RECOMMENDATIONS: * Wound healing: continue Vit C add KESHIA in 4oz H2O BID via GT * Calibrated bedscale wt for accurate CBW * Check lytes daily w/ TF, replete as needed * Monitor TF tolerance/residuals * DC D5 once TF @ goal (5) Suspected COVID-19 virus infection Assessment & Plan: covid negative x3 so far respiratory improved Right basilar consolidation and atelectasis, could indicate pneumonia. Minimal left basilar atelectasis Gabino Little October 14, 2019 11:41
--- NOTE | 2019-10-14 11:50 | Pulmonology Progress Note ---
Subjective ROS Limited/Unobtainable: No Interval Events: None new, on 6L/min O2 Constitutional: Denies: fever HEENT: Repors: no symptoms Respiratory: Reports: dry cough, shortness of breath Cardiovascular: Reports: no symptoms Gastrointestinal/Abdominal: Reports: no symptoms Allergies: Coded Allergies: PNEUMOCOCCAL VACCINE (Unverified Allergy, Unknown, 10/07/18) Uncoded Allergies: PNA VACCINE (Allergy, Unknown, 09/30/19) All Systems: reviewed and negative except above Objective Last 24 Hour Vital Signs Date Time Temp Pulse Resp B/P (MAP) Pulse Ox O2 Delivery O2 Flow Rate FiO2 10/14/19 09:03 144/73 10/14/19 09:03 100 144/73 10/14/19 09:00 Venturi Mask 6.0 Venturi Mask 6.0 10/14/19 08:00 97.9 100 20 144/73 (96) 92 10/14/19 07:58 94 10/14/19 06:55 86 18 99 Venturi Mask 6.0 35 84 18 97 10/14/19 06:45 97 Venturi Mask 6.0 35 10/14/19 04:00 96 10/14/19 04:00 98.5 92 18 110/59 (76) 95 10/14/19 03:22 86 18 100 Venturi Mask 6.0 35 10/14/19 03:00 88 20 100 Venturi Mask 6.0 35 86 18 99 10/14/19 00:00 98.1 93 18 119/63 (81) 98 10/14/19 00:00 85 10/13/19 21:00 100 Venturi Mask 6.0 35 10/13/19 21:00 Venturi Mask 8.0 10/13/19 20:00 99 10/13/19 20:00 98.7 95 19 112/58 (76) 99 10/13/19 18:09 129/81 10/13/19 16:00 100.0 131 28 129/81 (97) 94 10/13/19 16:00 123 10/13/19 15:22 100.0 10/13/19 15:00 101.8 10/13/19 12:10 155/83 10/13/19 12:00 98.5 138 18 155/83 (107) 94 10/13/19 12:00 136 Intake and Output 10/13/19 10/14/19 19:00 07:00 Intake Total 795 ml Output Total 1100 ml 620 ml Balance -305 ml -620 ml Intake Free Water 340 ml IV Total 55 ml Tube Feeding 400 ml Output Urine Total 1100 ml 620 ml # Bowel Movements 2 1 General Appearance: no acute distress HEENT: mucous membranes moist Respiratory/Chest: chest wall non-tender, decreased breath sounds Cardiovascular: normal peripheral pulses, normal rate Abdomen: soft, non tender Extremities: other - decreased R arm edema Skin: other - skin induration in right arm Neurologic/Psychiatric: aphasia Microbiology Date/Time Source Procedure Growth Status 10/13/19 18:29 Indwelling Cath Urine Culture - Preliminary Resulted Laboratory Tests 10/13/19 18:29: Urine Color Red, Urine Appearance Very cloudy, Urine pH 8, Urine Specific [place] 1.010, Urine Protein 3+H, Urine Glucose (UA) Negative, Urine Ketones Negative, Urine Blood 5+H, Urine Nitrite Negative, Urine Bilirubin Negative, Urine Urobilinogen Normal, Urine Leukocyte Esterase 1+H, Urine RBC TntcH, Urine WBC 0-2, Urine Squamous Epithelial Cells None, Urine Bacteria Occasional 10/14/19 04:05: White Blood Count 20.4#H, Red Blood Count 3.41L, Hemoglobin 11.3L, Hematocrit 32.9L, Mean Corpuscular Volume 96, Mean Corpuscular Hemoglobin 33.0H, Mean Corpuscular Hemoglobin Concent 34.2, Red Cell Distribution Width 13.9, Platelet Count 527H, Mean Platelet Volume 5.9L, Neutrophils (%) (Auto) , Lymphocytes (%) (Auto) , Monocytes (%) (Auto) , Eosinophils (%) (Auto) , Basophils (%) (Auto) , Differential Total Cells Counted 100, Neutrophils % (Manual) 83H, Lymphocytes % (Manual) 14L, Monocytes % (Manual) 0L, Eosinophils % (Manual) 0, Basophils % ( Manual) 0, Band Neutrophils 3, Nucleated Red Blood Cells 1, Platelet Estimate IncreasedH, Platelet Morphology Normal, Red Blood Cell Morphology Normal, Erythrocyte Sedimentation Rate 100H, Sodium Level 143, Potassium Level 4.6, Chloride Level 104, Carbon Dioxide Level 32, Anion Gap 7, Blood Urea Nitrogen 24H, Creatinine 0.9, Estimat Glomerular Filtration Rate > 60, Glucose Level 139H , Calcium Level 10.5H, Total Bilirubin 0.3, Aspartate Amino Transf (AST/SGOT) 64H, Alanine Aminotransferase (ALT/SGPT) 58, Alkaline Phosphatase 438H, C- Reactive Protein, Quantitative 6.6H, Total Protein 9.3H, Albumin 2.8L, Globulin 6.5, Albumin/Globulin Ratio 0.4L, Vancomycin Level Trough 17.2H Current Medications Medications (Trade) Dose Ordered Sig/Nidhi Route PRN Reason Start Time Stop Time Status Last Admin Dose Admin Acetaminophen (Tylenol) 650 mg Q4H PRN GT Pain/Temp >100.5 10/01/19 03:30 10/30/19 23:29 10/13/19 14:52 Albuterol Sulfate (Proventil) 2.5 mg Q6HRT HHN 10/14/19 13:00 10/18/19 15:59 Amlodipine Besylate (Norvasc) 10 mg DAILY GT 10/01/19 09:00 10/31/19 08:59 10/14/19 09:03 Ascorbic Acid (Vitamin C) 250 mg BID GT 10/01/19 09:00 10/31/19 08:59 10/14/19 09:02 Cefepime HCl 1 gm/ Dextrose 55 ml @ 110 mls/hr EVERY 12 HOURS IVPB 10/14/19 09:00 10/21/19 08:59 10/14/19 09:01 Clonidine HCl (Catapres tab) 0.2 mg BID GT 10/13/19 18:00 12/30/19 00:00 10/14/19 09:03 Dextrose (Dextrose 50%) 25 ml Q30M PRN IV Hypoglycemia 09/30/19 22:00 12/29/19 21:59 Dextrose (Dextrose 50%) 50 ml Q30M PRN IV Hypoglycemia 09/30/19 22:00 12/29/19 21:59 Docusate Sodium (Colace) 100 mg TWICE A DAY GT 10/01/19 09:00 10/31/19 08:59 10/14/19 09:02 Donepezil HCl (Aricept) 5 mg BEDTIME GT 10/01/19 21:00 10/31/19 20:59 10/13/19 20:40 Ferrous Sulfate (Feosol) 325 mg BID GT 10/01/19 09:00 12/30/19 08:59 10/14/19 09:02 Heparin Sodium (Porcine) (Heparin 5000 units/ml) 5,000 units EVERY 8 HOURS SUBQ 10/01/19 06:00 11/15/19 05:59 10/14/19 06:04 Insulin Aspart (NovoLOG) BEFORE MEALS AND HS SUBQ 09/30/19 21:51 12/29/19 21:50 10/14/19 11:38 Lansoprazole (Prevacid) 30 mg DAILY GT 10/12/19 09:00 11/11/19 08:59 10/14/19 09:02 Levetiracetam (Keppra) 500 mg Q12HR GT 10/01/19 09:00 11/15/19 08:59 10/14/19 09:01 Magnesium Hydroxide (Mom) 30 ml DAILY GT 10/01/19 09:00 10/31/19 08:59 10/14/19 09:01 Methylprednisolone Sodium Succinate (Solu-MEDROL) 40 mg EVERY 6 HOURS IVP 10/13/19 16:00 01/11/20 15:59 10/14/19 06:00 Metoclopramide HCl (Reglan) 5 mg Q6H PRN IVP Nausea & Vomiting 10/02/19 09:45 11/01/19 09:44 Multivitamins (Multivitamins) 1 tab DAILY GT 10/01/19 09:00 10/31/19 08:59 10/14/19 09:02 Phenytoin (Dilantin) 300 mg DAILY GT 10/01/19 09:00 11/15/19 08:59 10/14/19 09:02 Sennosides (Senokot) 8.6 mg DAILY GT 10/01/19 09:00 10/31/19 08:59 10/14/19 09:02 Vancomycin HCl (Vanco rx to dose) 1 ea DAILY PRN MISC Per rx protocol 10/09/19 14:15 11/08/19 14:14 Vancomycin HCl 1 gm/Sodium Chloride 275 ml @ 183.708 mls/hr Q24H IVPB 10/14/19 06:00 10/19/19 05:59 10/14/19 06:38 Assessment/Plan Assessment/Plan IMPRESSION: 1. Right lung pneumonia. COVID pcr x 3 negative 2. residential resident. 3. Recent hospitalization at acute hospital. 4. Diabetes mellitus. 5. Hypertension. 6. COPD. 7. Pacemaker. 8. Acintebacter bacteremia DISCUSSION: Continue broad-spectrum antibiotics. Continue oxygen, pulmonary hygiene. I will follow carefully. COVID 19 pcr x 3 negative Requiring ventimask O2 CXR unchanged Kam Mathis Omar Syed MD October 14, 2019 11:50
--- NOTE | 2019-10-14 13:19 | Infectious Diseases Prog Note ---
Assessment/Plan Assessment/Plan IMPRESSION: 1. MDR Acinetobacter sepsis 2. Pneumonia. Negative COVID19 X 3 3. Unstageable pressure ulcer that doesn't seem to be infected . 4. Hypernatremia. 5. Anemia. 6. Advanced dementia. 7. History of diverticulosis. 8. Gastrostomy status. 9. Leukocytosis & fever 10 Phlebitis & cellulitis of R arm RECOMMENDATION: Continue IV Vancomycin & Cefepime R arm venous duplex: No DVT Will f/u CXR & cultures Case was D/W pharmacy Subjective ROS Limited/Unobtainable: Yes Constitutional: Reports: other - developed fever yesterday Allergies: Coded Allergies: PNEUMOCOCCAL VACCINE (Unverified Allergy, Unknown, 10/07/18) Uncoded Allergies: PNA VACCINE (Allergy, Unknown, 09/30/19) Objective Vital Signs Last 24 Hour Vital Signs Date Time Temp Pulse Resp B/P (MAP) Pulse Ox O2 Delivery O2 Flow Rate FiO2 10/14/19 12:00 97.7 93 20 119/74 (89) 100 10/14/19 11:41 81 10/14/19 09:03 144/73 10/14/19 09:03 100 144/73 10/14/19 09:00 Venturi Mask 6.0 Venturi Mask 6.0 10/14/19 08:00 97.9 100 20 144/73 (96) 92 10/14/19 07:58 94 10/14/19 06:55 86 18 99 Venturi Mask 6.0 35 84 18 97 10/14/19 06:45 97 Venturi Mask 6.0 35 10/14/19 04:00 96 10/14/19 04:00 98.5 92 18 110/59 (76) 95 10/14/19 03:22 86 18 100 Venturi Mask 6.0 35 10/14/19 03:00 88 20 100 Venturi Mask 6.0 35 86 18 99 10/14/19 00:00 98.1 93 18 119/63 (81) 98 10/14/19 00:00 85 10/13/19 21:00 100 Venturi Mask 6.0 35 10/13/19 21:00 Venturi Mask 8.0 10/13/19 20:00 99 10/13/19 20:00 98.7 95 19 112/58 (76) 99 5/11/20 18:09 129/81 10/13/19 16:00 100.0 131 28 129/81 (97) 94 10/13/19 16:00 123 10/13/19 15:22 100.0 10/13/19 15:00 101.8 Height (Feet): 6 Height (Inches): 0.00 Weight (Pounds): 186 General Appearance: no acute distress HEENT: mucous membranes moist Respiratory/Chest: other - coarse sounds Cardiovascular: normal rate Abdomen: soft, non tender, other - GT feeding Genitourinary: other - Macedo catheter Extremities: no edema Neurologic/Psychiatric: aphasia Microbiology Date/Time Source Procedure Growth Status 10/13/19 18:29 Indwelling Cath Urine Culture - Preliminary Resulted Laboratory Tests Test 10/13/19 18:29 10/14/19 04:05 Urine Color Red Urine Appearance Very cloudy Urine pH 8 (4.5-8.0) Urine Specific [place] 1.010 (1.005-1.035) Urine Protein 3+ (NEGATIVE) H Urine Glucose (UA) Negative (NEGATIVE) Urine Ketones Negative (NEGATIVE) Urine Blood 5+ (NEGATIVE) H Urine Nitrite Negative (NEGATIVE) Urine Bilirubin Negative (NEGATIVE) Urine Urobilinogen Normal MG/DL (0.0-1.0) Urine Leukocyte Esterase 1+ (NEGATIVE) H Urine RBC Tntc /HPF (0 - 0) H Urine WBC 0-2 /HPF (0 - 0) Urine Squamous Epithelial Cells None /LPF (NONE/OCC) Urine Bacteria Occasional /HPF (NONE) White Blood Count 20.4 K/UL (4.8-10.8) #H Red Blood Count 3.41 M/UL (4.70-6.10) L Hemoglobin 11.3 G/DL (14.2-18.0) L Hematocrit 32.9 % (42.0-52.0) L Mean Corpuscular Volume 96 FL (80-99) Mean Corpuscular Hemoglobin 33.0 PG (27.0-31.0) H Mean Corpuscular Hemoglobin Concent 34.2 G/DL (32.0-36.0) Red Cell Distribution Width 13.9 % (11.6-14.8) Platelet Count 527 K/UL (150-450) H Mean Platelet Volume 5.9 FL (6.5-10.1) L Neutrophils (%) (Auto) % (45.0-75.0) Lymphocytes (%) (Auto) % (20.0-45.0) Monocytes (%) (Auto) % (1.0-10.0) Eosinophils (%) (Auto) % (0.0-3.0) Basophils (%) (Auto) % (0.0-2.0) Differential Total Cells Counted 100 Neutrophils % (Manual) 83 % (45-75) H Lymphocytes % (Manual) 14 % (20-45) L Monocytes % (Manual) 0 % (1-10) L Eosinophils % (Manual) 0 % (0-3) Basophils % (Manual) 0 % (0-2) Band Neutrophils 3 % (0-8) Nucleated Red Blood Cells 1 /100 WBC Platelet Estimate Increased H Platelet Morphology Normal Red Blood Cell Morphology Normal Erythrocyte Sedimentation Rate 100 MM/HR (0-20) H Sodium Level 143 MMOL/L (136-145) Potassium Level 4.6 MMOL/L (3.5-5.1) Chloride Level 104 MMOL/L (98-107) Carbon Dioxide Level 32 MMOL/L (21-32) Anion Gap 7 mmol/L (5-15) Blood Urea Nitrogen 24 mg/dL (7-18) H Creatinine 0.9 MG/DL (0.55-1.30) Estimat Glomerular Filtration Rate > 60 mL/min (>60) Glucose Level 139 MG/DL (74-106) H Calcium Level 10.5 MG/DL (8.5-10.1) H Total Bilirubin 0.3 MG/DL (0.2-1.0) Aspartate Amino Transf (AST/SGOT) 64 U/L (15-37) H Alanine Aminotransferase (ALT/SGPT) 58 U/L (12-78) Alkaline Phosphatase 438 U/L (46-116) H C-Reactive Protein, Quantitative 6.6 mg/dL (0.00-0.90) H Total Protein 9.3 G/DL (6.4-8.2) H Albumin 2.8 G/DL (3.4-5.0) L Globulin 6.5 g/dL Albumin/Globulin Ratio 0.4 (1.0-2.7) L Vancomycin Level Trough 17.2 ug/mL (5.0-12.0) H Current Medications Medications (Trade) Dose Ordered Sig/Nidhi Route PRN Reason Start Time Stop Time Status Last Admin Dose Admin Acetaminophen (Tylenol) 650 mg Q4H PRN GT Pain/Temp >100.5 10/01/19 03:30 10/30/19 23:29 10/13/19 14:52 Albuterol Sulfate (Proventil) 2.5 mg Q6HRT HHN 10/14/19 13:00 10/18/19 15:59 10/14/19 13:13 Amlodipine Besylate (Norvasc) 10 mg DAILY GT 10/01/19 09:00 10/31/19 08:59 10/14/19 09:03 Ascorbic Acid (Vitamin C) 250 mg BID GT 10/01/19 09:00 10/31/19 08:59 10/14/19 09:02 Cefepime HCl 1 gm/ Dextrose 55 ml @ 110 mls/hr EVERY 12 HOURS IVPB 10/14/19 09:00 10/21/19 08:59 10/14/19 09:01 Clonidine HCl (Catapres tab) 0.2 mg BID GT 10/13/19 18:00 12/30/19 00:00 10/14/19 09:03 Dextrose (Dextrose 50%) 25 ml Q30M PRN IV Hypoglycemia 09/30/19 22:00 12/29/19 21:59 Dextrose (Dextrose 50%) 50 ml Q30M PRN IV Hypoglycemia 09/30/19 22:00 12/29/19 21:59 Docusate Sodium (Colace) 100 mg TWICE A DAY GT 10/01/19 09:00 10/31/19 08:59 10/14/19 09:02 Donepezil HCl (Aricept) 5 mg BEDTIME GT 10/01/19 21:00 10/31/19 20:59 10/13/19 20:40 Ferrous Sulfate (Feosol) 325 mg BID GT 10/01/19 09:00 12/30/19 08:59 10/14/19 09:02 Heparin Sodium (Porcine) (Heparin 5000 units/ml) 5,000 units EVERY 8 HOURS SUBQ 10/01/19 06:00 11/15/19 05:59 10/14/19 06:04 Insulin Aspart (NovoLOG) BEFORE MEALS AND HS SUBQ 09/30/19 21:51 12/29/19 21:50 10/14/19 11:38 Lansoprazole (Prevacid) 30 mg DAILY GT 10/12/19 09:00 11/11/19 08:59 10/14/19 09:02 Levetiracetam (Keppra) 500 mg Q12HR GT 10/01/19 09:00 11/15/19 08:59 10/14/19 09:01 Magnesium Hydroxide (Mom) 30 ml DAILY GT 10/01/19 09:00 10/31/19 08:59 10/14/19 09:01 Methylprednisolone Sodium Succinate (Solu-MEDROL) 40 mg EVERY 6 HOURS IVP 10/13/19 16:00 01/11/20 15:59 10/14/19 12:05 Metoclopramide HCl (Reglan) 5 mg Q6H PRN IVP Nausea & Vomiting 10/02/19 09:45 11/01/19 09:44 Multivitamins (Multivitamins) 1 tab DAILY GT 10/01/19 09:00 10/31/19 08:59 10/14/19 09:02 Phenytoin (Dilantin) 300 mg DAILY GT 10/01/19 09:00 11/15/19 08:59 10/14/19 09:02 Sennosides (Senokot) 8.6 mg DAILY GT 10/01/19 09:00 10/31/19 08:59 10/14/19 09:02 Vancomycin HCl (Vanco rx to dose) 1 ea DAILY PRN MISC Per rx protocol 10/09/19 14:15 11/08/19 14:14 Vancomycin HCl 1 gm/Sodium Chloride 275 ml @ 183.708 mls/hr Q24H IVPB 10/14/19 06:00 10/19/19 05:59 10/14/19 06:38 Curtis Farah MD October 14, 2019 13:19
--- NOTE | 2019-10-14 13:52 | Diagnostic Imaging Report ---
Indication: Shortness of breath Technique: One view of the chest Comparison: 10/11/2019 Findings: There is an apparent border peripheral to which lung appears lucent at the left mid to lower lung. This presumably represents a skin fold as lung markings are seen beyond this. Atelectatic changes are seen at both lung bases. There is some consolidation at at both lung bases which appears similar to the previous study. There is right perihilar atelectasis. The heart size is normal. Findings are overall unchanged. Impression: Unchanged, over 3 days, findings as above.
[2019-10-14] MEDS: Donepezil 5mg Tab GT SCH (21:00)
--- NOTE | 2019-10-14 21:15 | General Progress Note ---
Assessment/Plan Problem List: (1) Fever ICD Codes: R50.9 - Fever, unspecified SNOMED: 016972949 (2) COPD (chronic obstructive pulmonary disease) ICD Codes: J44.9 - Chronic obstructive pulmonary disease, unspecified SNOMED: 78483034 (3) Severe sepsis ICD Codes: A41.9 - Sepsis, unspecified organism; R65.20 - Severe sepsis without septic shock SNOMED: 98687844 (4) PEG (percutaneous endoscopic gastrostomy) adjustment/replacement/removal ICD Codes: Z43.1 - Encounter for attention to gastrostomy SNOMED: 961504566, 594778304 (5) Protein-calorie malnutrition, severe ICD Codes: E43 - Unspecified severe protein-calorie malnutrition SNOMED: 211848625 (6) Acute febrile illness ICD Codes: R50.9 - Fever, unspecified SNOMED: 772638740 (7) PNA (pneumonia) ICD Codes: J18.9 - Pneumonia, unspecified organism SNOMED: 985022199 (8) Suspected COVID-19 virus infection ICD Codes: Z20.828 - Contact with and (suspected) exposure to other viral communicable diseases SNOMED: 314020898 (9) Congestion secondary to upper respiratory illness Status: unchanged Assessment/Plan: cellulitis of UE MDR SEPSIS repeat covid is negative positive blood cx pna malnutrition afebrile worsening leukocytosis resp insuff Subjective Allergies: Coded Allergies: PNEUMOCOCCAL VACCINE (Unverified Allergy, Unknown, 10/07/18) Uncoded Allergies: PNA VACCINE (Allergy, Unknown, 09/30/19) Objective Last 24 Hour Vital Signs Date Time Temp Pulse Resp B/P (MAP) Pulse Ox O2 Delivery O2 Flow Rate FiO2 10/14/19 20:20 77 18 100 Venturi Mask 6.0 35 10/14/19 20:10 80 18 98 Venturi Mask 6.0 35 10/14/19 20:10 98 Venturi Mask 6.0 35 10/14/19 17:29 131/75 10/14/19 17:27 95 131/75 (93) 10/14/19 16:00 97.7 83 20 111/58 (75) 98 10/14/19 16:00 84 10/14/19 13:24 93 20 98 Venturi Mask 6.0 35 89 16 96 10/14/19 12:00 97.7 93 20 119/74 (89) 100 10/14/19 11:41 81 10/14/19 09:03 144/73 10/14/19 09:03 100 144/73 10/14/19 09:00 Venturi Mask 6.0 Venturi Mask 6.0 10/14/19 08:00 97.9 100 20 144/73 (96) 92 10/14/19 07:58 94 10/14/19 06:55 86 18 99 Venturi Mask 6.0 35 84 18 97 10/14/19 06:45 97 Venturi Mask 6.0 35 10/14/19 04:00 96 10/14/19 04:00 98.5 92 18 110/59 (76) 95 10/14/19 03:22 86 18 100 Venturi Mask 6.0 35 10/14/19 03:00 88 20 100 Venturi Mask 6.0 35 86 18 99 10/14/19 00:00 98.1 93 18 119/63 (81) 98 10/14/19 00:00 85 Intake and Output 10/13/19 10/14/19 19:00 07:00 Intake Total 795 ml Output Total 1100 ml 620 ml Balance -305 ml -620 ml Intake Free Water 340 ml IV Total 55 ml Tube Feeding 400 ml Output Urine Total 1100 ml 620 ml # Bowel Movements 2 1 Laboratory Tests 10/14/19 04:05: White Blood Count 20.4#H, Red Blood Count 3.41L, Hemoglobin 11.3L, Hematocrit 32.9L, Mean Corpuscular Volume 96, Mean Corpuscular Hemoglobin 33.0H, Mean Corpuscular Hemoglobin Concent 34.2, Red Cell Distribution Width 13.9, Platelet Count 527H, Mean Platelet Volume 5.9L, Neutrophils (%) (Auto) , Lymphocytes (%) (Auto) , Monocytes (%) (Auto) , Eosinophils (%) (Auto) , Basophils (%) (Auto) , Differential Total Cells Counted 100, Neutrophils % (Manual) 83H, Lymphocytes % (Manual) 14L, Monocytes % (Manual) 0L, Eosinophils % (Manual) 0, Basophils % ( Manual) 0, Band Neutrophils 3, Nucleated Red Blood Cells 1, Platelet Estimate IncreasedH, Platelet Morphology Normal, Red Blood Cell Morphology Normal, Erythrocyte Sedimentation Rate 100H, Sodium Level 143, Potassium Level 4.6, Chloride Level 104, Carbon Dioxide Level 32, Anion Gap 7, Blood Urea Nitrogen 24H, Creatinine 0.9, Estimat Glomerular Filtration Rate > 60, Glucose Level 139H , Calcium Level 10.5H, Total Bilirubin 0.3, Aspartate Amino Transf (AST/SGOT) 64H, Alanine Aminotransferase (ALT/SGPT) 58, Alkaline Phosphatase 438H, C- Reactive Protein, Quantitative 6.6H, Total Protein 9.3H, Albumin 2.8L, Globulin 6.5, Albumin/Globulin Ratio 0.4L, Vancomycin Level Trough 17.2H Height (Feet): 6 Height (Inches): 0.00 Weight (Pounds): 186 General Appearance: confused Konrad Soares MD October 14, 2019 21:15
[2019-10-15] VITALS: BP 115/66
[2019-10-15] MEDS: Albuterol ud Inhalation HHN SCH ×5 (01:09→19:48)
[2019-10-15 04:00] VITALS: BP 115/66
[2019-10-15] MEDS: Vancomycin 1 GM in NS 275 ML IVPB SCH (06:14)
[2019-10-15] MEDS: Solu-MEDROL 40mg Inj IVP SCH ×3 (06:14→17:17)
[2019-10-15] MEDS: NovoLOG Insulin Flexpen SUBQ SCH ×4 (06:15→21:00)
[2019-10-15] MEDS: Heparin 5000 units/ml inj SUBQ SCH ×2 (06:19→14:17)
[2019-10-15 08:00] VITALS: BP 143/84
--- NOTE | 2019-10-15 08:31 | General Progress Note ---
Assessment/Plan Status: unchanged Assessment/Plan: 1. Hypertension. 2. Diabetes. 3. COPD. 4. History of pacemaker placement. 5. Dementia. 6. gastroparesis reglan GTF GT flushes repeat labs pending dc will fu Subjective ROS Limited/Unobtainable: No Allergies: Coded Allergies: PNEUMOCOCCAL VACCINE (Unverified Allergy, Unknown, 10/07/18) Uncoded Allergies: PNA VACCINE (Allergy, Unknown, 09/30/19) Objective Last 24 Hour Vital Signs Date Time Temp Pulse Resp B/P (MAP) Pulse Ox O2 Delivery O2 Flow Rate FiO2 10/15/19 04:00 97.6 88 18 115/66 (82) 100 10/15/19 04:00 96 10/15/19 01:21 74 20 98 Venturi Mask 6.0 35 10/15/19 01:09 68 20 95 Venturi Mask 6.0 35 10/15/19 00:00 97.4 82 17 115/66 (82) 100 10/15/19 00:00 76 10/14/19 21:00 Venturi Mask 6.0 Venturi Mask 6.0 10/14/19 20:20 77 18 100 Venturi Mask 6.0 35 10/14/19 20:10 80 18 98 Venturi Mask 6.0 35 10/14/19 20:10 98 Venturi Mask 6.0 35 10/14/19 20:00 97.3 76 18 132/63 (86) 100 10/14/19 20:00 69 10/14/19 17:29 131/75 10/14/19 17:27 95 131/75 (93) 10/14/19 16:00 97.7 83 20 111/58 (75) 98 10/14/19 16:00 84 10/14/19 13:24 93 20 98 Venturi Mask 6.0 35 89 16 96 10/14/19 12:00 97.7 93 20 119/74 (89) 100 10/14/19 11:41 81 10/14/19 09:03 144/73 10/14/19 09:03 100 144/73 10/14/19 09:00 Venturi Mask 6.0 Venturi Mask 6.0 Intake and Output 10/14/19 10/15/19 19:00 07:00 Intake Total 1135 ml Output Total 650 ml 850 ml Balance -650 ml 285 ml Intake Free Water 200 ml IV Total 55 ml Tube Feeding 550 ml Other 330 ml Output Urine Total 650 ml 850 ml # Bowel Movements 1 Height (Feet): 6 Height (Inches): 0.00 Weight (Pounds): 186 General Appearance: no apparent distress EENT: normal ENT inspection Neck: supple Cardiovascular: normal rate Respiratory/Chest: decreased breath sounds Abdomen: normal bowel sounds, non tender, soft Extremities: non-tender Terence Anton MD October 15, 2019 08:31
[2019-10-15] MEDS: Milk of Magnesia 30ml Ud GT SCH (09:12)
[2019-10-15] MEDS: levETIRAcetam 500mg/5ml Liquid GT SCH (09:12)
[2019-10-15] MEDS: Docusate 100mg/10ml Liq GT SCH ×3 (09:12→17:16)
[2019-10-15] MEDS: Ferrous Sulfate 300 MG/5 ML UDC GT SCH (09:12)
[2019-10-15] MEDS: Cefepime HCl 1 GM in D5W 55 ML IVPB SCH (09:13)
[2019-10-15] MEDS: Sennosides 8.6mg tab GT SCH (09:13)
[2019-10-15] MEDS: Phenytoin Susp 100mg/4ml GT SCH (09:13)
[2019-10-15] MEDS: cloNIDine 0.2mg Tab GT SCH (09:13)
[2019-10-15] MEDS: Ascorbic Acid 500mg tab GT SCH ×2 (09:14→17:16)
--- NOTE | 2019-10-15 10:29 | Pulmonology Progress Note ---
Subjective ROS Limited/Unobtainable: No Interval Events: None new, on 6L/min O2 Constitutional: Reports: other - developed fever yesterday HEENT: Repors: no symptoms Respiratory: Reports: dry cough, shortness of breath Cardiovascular: Reports: no symptoms Gastrointestinal/Abdominal: Reports: no symptoms Allergies: Coded Allergies: PNEUMOCOCCAL VACCINE (Unverified Allergy, Unknown, 10/07/18) Uncoded Allergies: PNA VACCINE (Allergy, Unknown, 09/30/19) All Systems: reviewed and negative except above Objective Last 24 Hour Vital Signs Date Time Temp Pulse Resp B/P (MAP) Pulse Ox O2 Delivery O2 Flow Rate FiO2 10/15/19 09:14 104 143/84 10/15/19 09:13 143/84 10/15/19 08:00 101 10/15/19 08:00 98.2 104 20 143/84 (103) 98 10/15/19 04:00 97.6 88 18 115/66 (82) 100 10/15/19 04:00 96 10/15/19 01:21 74 20 98 Venturi Mask 6.0 35 10/15/19 01:09 68 20 95 Venturi Mask 6.0 35 10/15/19 00:00 97.4 82 17 115/66 (82) 100 10/15/19 00:00 76 10/14/19 21:00 Venturi Mask 6.0 Venturi Mask 6.0 10/14/19 20:20 77 18 100 Venturi Mask 6.0 35 10/14/19 20:10 80 18 98 Venturi Mask 6.0 35 10/14/19 20:10 98 Venturi Mask 6.0 35 10/14/19 20:00 97.3 76 18 132/63 (86) 100 10/14/19 20:00 69 10/14/19 17:29 131/75 10/14/19 17:27 95 131/75 (93) 10/14/19 16:00 97.7 83 20 111/58 (75) 98 10/14/19 16:00 84 10/14/19 13:24 93 20 98 Venturi Mask 6.0 35 89 16 96 10/14/19 12:00 97.7 93 20 119/74 (89) 100 10/14/19 11:41 81 Intake and Output 10/14/19 10/15/19 19:00 07:00 Intake Total 1135 ml Output Total 650 ml 850 ml Balance -650 ml 285 ml Intake Free Water 200 ml IV Total 55 ml Tube Feeding 550 ml Other 330 ml Output Urine Total 650 ml 850 ml # Bowel Movements 1 General Appearance: no acute distress HEENT: mucous membranes moist Respiratory/Chest: chest wall non-tender, decreased breath sounds Cardiovascular: normal peripheral pulses, normal rate Abdomen: soft, non tender, other - GT feeding Genitourinary: other - Macedo catheter Extremities: no edema Skin: other - skin induration in right arm Neurologic/Psychiatric: aphasia Microbiology Date/Time Source Procedure Growth Status 10/13/19 18:46 Blood Blood Culture - Preliminary NO GROWTH AFTER 24 HOURS Resulted 10/13/19 18:40 Blood Blood Culture - Preliminary NO GROWTH AFTER 24 HOURS Resulted 10/13/19 18:29 Indwelling Cath Urine Culture - Preliminary Resulted Current Medications Medications (Trade) Dose Ordered Sig/Nidhi Route PRN Reason Start Time Stop Time Status Last Admin Dose Admin Acetaminophen (Tylenol) 650 mg Q4H PRN GT Pain/Temp >100.5 10/01/19 03:30 10/30/19 23:29 10/13/19 14:52 Albuterol Sulfate (Proventil) 2.5 mg Q6HRT HHN 10/14/19 13:00 10/18/19 15:59 10/15/19 01:09 Amlodipine Besylate (Norvasc) 10 mg DAILY GT 10/01/19 09:00 10/31/19 08:59 10/15/19 09:14 Ascorbic Acid (Vitamin C) 250 mg BID GT 10/01/19 09:00 10/31/19 08:59 10/15/19 09:14 Cefepime HCl 1 gm/ Dextrose 55 ml @ 110 mls/hr EVERY 12 HOURS IVPB 10/14/19 09:00 10/21/19 08:59 10/15/19 09:13 Clonidine HCl (Catapres tab) 0.2 mg BID GT 10/13/19 18:00 12/30/19 00:00 10/15/19 09:13 Dextrose (Dextrose 50%) 25 ml Q30M PRN IV Hypoglycemia 09/30/19 22:00 12/29/19 21:59 Dextrose (Dextrose 50%) 50 ml Q30M PRN IV Hypoglycemia 09/30/19 22:00 12/29/19 21:59 Docusate Sodium (Colace) 100 mg TWICE A DAY GT 10/01/19 09:00 10/31/19 08:59 10/15/19 09:12 Donepezil HCl (Aricept) 5 mg BEDTIME GT 10/01/19 21:00 10/31/19 20:59 10/14/19 21:00 Ferrous Sulfate (Feosol) 325 mg BID GT 10/01/19 09:00 12/30/19 08:59 10/15/19 09:12 Heparin Sodium (Porcine) (Heparin 5000 units/ml) 5,000 units EVERY 8 HOURS SUBQ 10/01/19 06:00 11/15/19 05:59 10/15/19 06:19 Insulin Aspart (NovoLOG) BEFORE MEALS AND HS SUBQ 09/30/19 21:51 12/29/19 21:50 10/14/19 21:00 Lansoprazole (Prevacid) 30 mg DAILY GT 10/12/19 09:00 11/11/19 08:59 10/15/19 09:14 Levetiracetam (Keppra) 500 mg Q12HR GT 10/01/19 09:00 11/15/19 08:59 10/15/19 09:12 Magnesium Hydroxide (Mom) 30 ml DAILY GT 10/01/19 09:00 10/31/19 08:59 10/15/19 09:12 Methylprednisolone Sodium Succinate (Solu-MEDROL) 40 mg EVERY 6 HOURS IVP 10/13/19 16:00 01/11/20 15:59 10/15/19 06:14 Metoclopramide HCl (Reglan) 5 mg Q6H PRN IVP Nausea & Vomiting 10/02/19 09:45 11/01/19 09:44 Multivitamins (Multivitamins) 1 tab DAILY GT 10/01/19 09:00 10/31/19 08:59 10/15/19 09:13 Phenytoin (Dilantin) 300 mg DAILY GT 10/01/19 09:00 11/15/19 08:59 10/15/19 09:13 Sennosides (Senokot) 8.6 mg DAILY GT 10/01/19 09:00 10/31/19 08:59 10/15/19 09:13 Vancomycin HCl (Vanco rx to dose) 1 ea DAILY PRN MISC Per rx protocol 10/09/19 14:15 11/08/19 14:14 Vancomycin HCl 1 gm/Sodium Chloride 275 ml @ 183.708 mls/hr Q24H IVPB 10/14/19 06:00 10/19/19 05:59 10/15/19 06:14 Assessment/Plan Assessment/Plan IMPRESSION: 1. Right lung pneumonia. COVID pcr x 3 negative 2. [facility] resident. 3. Recent hospitalization at [facility]. 4. Diabetes mellitus. 5. Hypertension. 6. COPD. 7. Pacemaker. 8. Acintebacter bacteremia DISCUSSION: Continue broad-spectrum antibiotics. Continue oxygen, pulmonary hygiene. I will follow carefully. COVID 19 pcr x 3 negative Requiring ventimask O2; 35% Fio2 CXR unchanged Kam Mathis Omar Syed MD October 15, 2019 10:29
--- NOTE | 2019-10-15 10:50 | Infectious Diseases Prog Note ---
Assessment/Plan Assessment/Plan IMPRESSION: 1. MDR Acinetobacter sepsis treated 2. Pneumonia. Negative COVID19 X 3 3. Unstageable pressure ulcer that doesn't seem to be infected . 4. Hypernatremia. 5. Anemia. 6. Advanced dementia. 7. History of diverticulosis. 8. Gastrostomy status. 9. Leukocytosis & fever 10 Phlebitis & cellulitis of R arm RECOMMENDATION: Continue IV Vancomycin & Cefepime R arm venous duplex: No DVT Will f/u cultures CBC in am Abdominal US Subjective ROS Limited/Unobtainable: Yes Constitutional: Denies: fever Allergies: Coded Allergies: PNEUMOCOCCAL VACCINE (Unverified Allergy, Unknown, 10/07/18) Uncoded Allergies: PNA VACCINE (Allergy, Unknown, 09/30/19) Objective Vital Signs Last 24 Hour Vital Signs Date Time Temp Pulse Resp B/P (MAP) Pulse Ox O2 Delivery O2 Flow Rate FiO2 10/15/19 09:14 104 143/84 10/15/19 09:13 143/84 10/15/19 08:00 101 10/15/19 08:00 98.2 104 20 143/84 (103) 98 10/15/19 04:00 97.6 88 18 115/66 (82) 100 10/15/19 04:00 96 10/15/19 01:21 74 20 98 Venturi Mask 6.0 35 10/15/19 01:09 68 20 95 Venturi Mask 6.0 35 10/15/19 00:00 97.4 82 17 115/66 (82) 100 10/15/19 00:00 76 10/14/19 21:00 Venturi Mask 6.0 Venturi Mask 6.0 10/14/19 20:20 77 18 100 Venturi Mask 6.0 35 10/14/19 20:10 80 18 98 Venturi Mask 6.0 35 10/14/19 20:10 98 Venturi Mask 6.0 35 10/14/19 20:00 97.3 76 18 132/63 (86) 100 10/14/19 20:00 69 10/14/19 17:29 131/75 10/14/19 17:27 95 131/75 (93) 10/14/19 16:00 97.7 83 20 111/58 (75) 98 10/14/19 16:00 84 5/12/20 13:24 93 20 98 Venturi Mask 6.0 35 89 16 96 10/14/19 12:00 97.7 93 20 119/74 (89) 100 10/14/19 11:41 81 Height (Feet): 6 Height (Inches): 0.00 Weight (Pounds): 186 General Appearance: no acute distress HEENT: mucous membranes moist Respiratory/Chest: rhonchi - bilaterally, other - oxygen by mask Cardiovascular: normal rate Abdomen: soft, non tender, other - GT feeding Genitourinary: other - Macedo catheter , Hematuria Neurologic/Psychiatric: aphasia Microbiology Date/Time Source Procedure Growth Status 10/13/19 18:46 Blood Blood Culture - Preliminary NO GROWTH AFTER 24 HOURS Resulted 10/13/19 18:40 Blood Blood Culture - Preliminary NO GROWTH AFTER 24 HOURS Resulted 10/13/19 18:29 Indwelling Cath Urine Culture - Preliminary Resulted Laboratory Tests Test 10/15/19 10:25 Phosphorus Level Pending Magnesium Level Pending Thyroid Stimulating Hormone (TSH) Pending Current Medications Medications (Trade) Dose Ordered Sig/Nidhi Route PRN Reason Start Time Stop Time Status Last Admin Dose Admin Acetaminophen (Tylenol) 650 mg Q4H PRN GT Pain/Temp >100.5 10/01/19 03:30 10/30/19 23:29 10/13/19 14:52 Albuterol Sulfate (Proventil) 2.5 mg Q6HRT HHN 10/14/19 13:00 10/18/19 15:59 10/15/19 01:09 Amlodipine Besylate (Norvasc) 10 mg DAILY GT 10/01/19 09:00 10/31/19 08:59 10/15/19 09:14 Ascorbic Acid (Vitamin C) 250 mg BID GT 10/01/19 09:00 10/31/19 08:59 10/15/19 09:14 Cefepime HCl 1 gm/ Dextrose 55 ml @ 110 mls/hr EVERY 12 HOURS IVPB 10/14/19 09:00 10/21/19 08:59 10/15/19 09:13 Clonidine HCl (Catapres tab) 0.2 mg BID GT 10/13/19 18:00 12/30/19 00:00 10/15/19 09:13 Dextrose (Dextrose 50%) 25 ml Q30M PRN IV Hypoglycemia 09/30/19 22:00 12/29/19 21:59 Dextrose (Dextrose 50%) 50 ml Q30M PRN IV Hypoglycemia 09/30/19 22:00 12/29/19 21:59 Docusate Sodium (Colace) 100 mg TWICE A DAY GT 10/01/19 09:00 10/31/19 08:59 10/15/19 09:12 Donepezil HCl (Aricept) 5 mg BEDTIME GT 10/01/19 21:00 10/31/19 20:59 10/14/19 21:00 Ferrous Sulfate (Feosol) 325 mg BID GT 10/01/19 09:00 12/30/19 08:59 10/15/19 09:12 Heparin Sodium (Porcine) (Heparin 5000 units/ml) 5,000 units EVERY 8 HOURS SUBQ 10/01/19 06:00 11/15/19 05:59 10/15/19 06:19 Insulin Aspart (NovoLOG) BEFORE MEALS AND HS SUBQ 09/30/19 21:51 12/29/19 21:50 10/14/19 21:00 Lansoprazole (Prevacid) 30 mg DAILY GT 10/12/19 09:00 11/11/19 08:59 10/15/19 09:14 Levetiracetam (Keppra) 500 mg Q12HR GT 10/01/19 09:00 11/15/19 08:59 10/15/19 09:12 Magnesium Hydroxide (Mom) 30 ml DAILY GT 10/01/19 09:00 10/31/19 08:59 10/15/19 09:12 Methylprednisolone Sodium Succinate (Solu-MEDROL) 40 mg EVERY 6 HOURS IVP 10/13/19 16:00 01/11/20 15:59 10/15/19 06:14 Metoclopramide HCl (Reglan) 5 mg Q6H PRN IVP Nausea & Vomiting 10/02/19 09:45 11/01/19 09:44 Multivitamins (Multivitamins) 1 tab DAILY GT 10/01/19 09:00 10/31/19 08:59 10/15/19 09:13 Phenytoin (Dilantin) 300 mg DAILY GT 10/01/19 09:00 11/15/19 08:59 10/15/19 09:13 Sennosides (Senokot) 8.6 mg DAILY GT 10/01/19 09:00 10/31/19 08:59 10/15/19 09:13 Vancomycin HCl (Vanco rx to dose) 1 ea DAILY PRN MISC Per rx protocol 10/09/19 14:15 11/08/19 14:14 Vancomycin HCl 1 gm/Sodium Chloride 275 ml @ 183.708 mls/hr Q24H IVPB 10/14/19 06:00 10/19/19 05:59 10/15/19 06:14 Curtis Farah MD October 15, 2019 10:50
[2019-10-15 11:14] LABS: PHOSPHORUS 3.2 MG/DL (2.5-4.9)
--- NOTE | 2019-10-15 11:15 | Surgery Progress Note ---
Surgery Progress Note Subjective Additional Comments no acute events labs noted on steroids Objective Last 24 Hour Vital Signs Date Time Temp Pulse Resp B/P (MAP) Pulse Ox O2 Delivery O2 Flow Rate FiO2 10/15/19 09:14 104 143/84 10/15/19 09:13 143/84 10/15/19 08:00 101 10/15/19 08:00 98.2 104 20 143/84 (103) 98 10/15/19 04:00 97.6 88 18 115/66 (82) 100 10/15/19 04:00 96 10/15/19 01:21 74 20 98 Venturi Mask 6.0 35 10/15/19 01:09 68 20 95 Venturi Mask 6.0 35 10/15/19 00:00 97.4 82 17 115/66 (82) 100 10/15/19 00:00 76 10/14/19 21:00 Venturi Mask 6.0 Venturi Mask 6.0 10/14/19 20:20 77 18 100 Venturi Mask 6.0 35 10/14/19 20:10 80 18 98 Venturi Mask 6.0 35 10/14/19 20:10 98 Venturi Mask 6.0 35 10/14/19 20:00 97.3 76 18 132/63 (86) 100 10/14/19 20:00 69 10/14/19 17:29 131/75 10/14/19 17:27 95 131/75 (93) 10/14/19 16:00 97.7 83 20 111/58 (75) 98 10/14/19 16:00 84 10/14/19 13:24 93 20 98 Venturi Mask 6.0 35 89 16 96 10/14/19 12:00 97.7 93 20 119/74 (89) 100 10/14/19 11:41 81 I&O Intake and Output 10/14/19 10/15/19 19:00 07:00 Intake Total 1135 ml Output Total 650 ml 850 ml Balance -650 ml 285 ml Intake Free Water 200 ml IV Total 55 ml Tube Feeding 550 ml Other 330 ml Output Urine Total 650 ml 850 ml # Bowel Movements 1 Dressing: saturated Wound: clean Cardiovascular: RSR Respiratory: clear Abdomen: soft, non-tender, present bowel sounds Extremities: edema, no tenderness, no cyanosis Laboratory Tests Test 10/15/19 10:25 Phosphorus Level Pending Magnesium Level Pending Thyroid Stimulating Hormone (TSH) Pending Plan Problems: (1) Decubitus skin ulcer Assessment & Plan: Pt presented on admission with multiple pressure injuries. Resolving pressure injury cleft of R ear. [place] epithelial at base of wound with marginal erythema. Non-blanching erythema cleft of L ear. Pt is receiving o2 via nasal cannula, and oxygen tubing padded with gauze to minimize pressure and friction to both ears. Unstageable Sacral Pressure Injury(L)9.4cm x (W)7.8cm. Base of wound is 75% necrotic and and soft, 20% surrounding slough,Marginal erythema and macerated borders. Mild odor noted. Small amt seropurulent exudate.Periwound,skin tone is darker without elevation in skin temp, fluctuance or induration.small area of hyperpigmentation noted to L gluteal cheek. L Heel extending into plantar aspect is boggy with non-blanching erythema. Non-blanching erythema R heel without induration or fluctuance. Xerosis skin both feet. stable with [facility] d/c planning Tx.Plan: Cleanse Sacral wound with Saline. Apply Therahoney. Apply Moisture Barrier Paste periwound. Cover with Optifoam Drsg. Change every 3 days and prn. Apply Moisture Barrier paste to Perineum, R and L buttocks with each incontinence care. Apply Cavilon Skin Barrier to both heels. Cover each heel with Optifoam drsg. Change every 7 days and prn. Apply Cavilon Skin Barrier to clefts of both R and L ears Daily. Pad Oxygen tubing with gauze around Ears. Keep Oxygen tubing loose around Ears. Reposition at least every 2hours or as tolerated. Off-load heels with pillow. APM/CHRISTOPHER Mattress overlay. (2) Leukocytosis Assessment & Plan: leukocytosis 28k on admission trending down resolving wbc on abx wounds unlikely etiology pna ua noted cont abx as per id wbc 12k trending up again imaging reviewed abx changed per Id will follow with recs wbc trending up - likely steroid related otherwise stable cxr with v Apparently increased hazy airspace opacity on background of generalized mild interstitial disease. May be an artifact of under distention but could reflect worsening bilateral infiltrates. Stable bibasilar atelectasis and right basilar consolidation thank you US On the right, grayscale and duplex images demonstrate no evidence of intraluminal thrombus. Normal phasic Doppler waveforms. Patent upstream internal jugular and subclavian veins. Normal compressibility. The cephalic vein is very small. Impression: Negative for upper extremity venous thrombosis (3) Lung mass (4) Protein-calorie malnutrition, severe Assessment & Plan: There is a gastrostomy tube in place. Previously demonstrated nasogastric tube is no longer evident. Bowel gas pattern is unremarkable. No masses or unusual calcifications. There is evidence of a Macedo catheter. There is a right hip prosthesis. There are degenerative changes of the lumbar spine nutritional optimization tube feeds bmi noted alb low cont with feeds DAILY ESTIMATED NEEDS: Needs based on Pulmonary, wounds; 72.5kg 25-30 kcals/kg 6254-5208 total kcals 1.25-1.5 g protein/kg 90-108 g total protein 25-30 mL/kg 1447-7454 total fluid mLs NUTRITION DIAGNOSIS: 1. Increased pro needs r/t wound healing as evidenced by pt adm w/ multiple wounds including unstageable sacral wound, refer to WC eval. 2. Swallowing difficulty r/t dysphagia as evidenced by GT dependent. CURRENT TF:Glucerna 1.5 @ 50ml/hr x 22 hrs (on Dilantin QD) ENTERAL NUTRITION RECOMMENDATIONS: Glucerna 1.5 @55ml/hr x22 hrs (1 hr held before and after Dilantin med) to provide 1210ml, 1815kcal, 100g prot, 918ml free water - Increase goal rate to 55ml/hr to meet 100% est kcal/prot needs - Hold 1 hr before and after Dilantin med - HOB over 30 degrees ADDITIONAL RECOMMENDATIONS: * Wound healing: continue Vit C add KESHIA in 4oz H2O BID via GT * Calibrated bedscale wt for accurate CBW * Check lytes daily w/ TF, replete as needed * Monitor TF tolerance/residuals * DC D5 once TF @ goal (5) Suspected COVID-19 virus infection Assessment & Plan: covid negative x3 so far respiratory improved Right basilar consolidation and atelectasis, could indicate pneumonia. Minimal left basilar atelectasis Gabino Little October 15, 2019 11:15
--- NOTE | 2019-10-15 11:37 | Hematology/Onc Progress Note ---
Assessment/Plan Assessment/Plan # Leukocytosis on admission, rule out covid, given snf hx of multiple covid patinets, with pna noted on imaging --> may be due to infection --> per id --> wbc 28-->11.6-->12.1-->18->19->12.8-->13->20 ==> on steriods --> smear is noted --> abx cefepime/azithro-->polymyxin -> cefepime/canv # Hypercalcemia r/o malignancy, r/o myeloma, elevated on admission, may be 2/2 dehydration --> Ca 10.7-->9.9 --> pth is wnl, spep is also wnl as is upep --> on iv fluids as per pcp --> renal eval prn --> pth on prior admission was 42 # Multiple lung nodules -- in 2017 2 cm pleural-based masslike opacity containing multiple nodular calcifications andadjacent parenchymal linear density persists in the anterolateral periphery of thelateral segment right middle lobe, unchanged. Adjacent small nodular parenchymaldensities persist, unchanged. --> pulm aware --> consider ct chest once better --> Dr. 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 Subjective Allergies: Coded Allergies: PNEUMOCOCCAL VACCINE (Unverified Allergy, Unknown, 10/07/18) Uncoded Allergies: PNA VACCINE (Allergy, Unknown, 09/30/19) Subjective 10/01 nonverbal, confused, to be npo, tube feeds on hold, no bleeding, meds reviewed 10/02 remains nonverbal, on gtube feeds, labs noted, no bleeding 10/04 labs reviewed, on polymyxin, cont sq heparin q8 hrs, nc 2l, 10/05 labs still pending, gtube feeds ongoing, no bleeding 10/06 remains confused, with glucerna running, labs reviewed, 99.7f overnight 10/07 labs reviewed, no bleeding, on glucerna, no fc 10/08 nonverbal, with gtube, working, nonfunctional, labs ordered 10/09 no bleeding, no night sweats, no major changes, no fc 10/11 labs are noted, no bleeding or chills, meds reviewed 10/12 no bleeding, remains confused, no night sweats, meds noted 10/13 labs reviewed, no bleeding or night sweats, meds noted, wbc higher 10/14 tele, cxr unchanged, iv abx, on steroids, r arm joseph duplex no dvt Objective Objective Current Medications Medications (Trade) Dose Ordered Sig/Nidhi Route PRN Reason Start Time Stop Time Status Last Admin Dose Admin Acetaminophen (Tylenol) 650 mg Q4H PRN GT Pain/Temp >100.5 10/01/19 03:30 10/30/19 23:29 10/13/19 14:52 Albuterol Sulfate (Proventil) 2.5 mg Q6HRT HHN 10/14/19 13:00 10/18/19 15:59 10/15/19 01:09 Amlodipine Besylate (Norvasc) 10 mg DAILY GT 10/01/19 09:00 10/31/19 08:59 10/15/19 09:14 Ascorbic Acid (Vitamin C) 250 mg BID GT 10/01/19 09:00 10/31/19 08:59 10/15/19 09:14 Cefepime HCl 1 gm/ Dextrose 55 ml @ 110 mls/hr EVERY 12 HOURS IVPB 10/14/19 09:00 10/21/19 08:59 10/15/19 09:13 Clonidine HCl (Catapres tab) 0.2 mg BID GT 10/13/19 18:00 12/30/19 00:00 10/15/19 09:13 Dextrose (Dextrose 50%) 25 ml Q30M PRN IV Hypoglycemia 09/30/19 22:00 12/29/19 21:59 Dextrose (Dextrose 50%) 50 ml Q30M PRN IV Hypoglycemia 09/30/19 22:00 12/29/19 21:59 Docusate Sodium (Colace) 100 mg TWICE A DAY GT 10/01/19 09:00 10/31/19 08:59 10/15/19 09:12 Donepezil HCl (Aricept) 5 mg BEDTIME GT 10/01/19 21:00 10/31/19 20:59 10/14/19 21:00 Ferrous Sulfate (Feosol) 325 mg BID GT 10/01/19 09:00 12/30/19 08:59 10/15/19 09:12 Heparin Sodium (Porcine) (Heparin 5000 units/ml) 5,000 units EVERY 8 HOURS SUBQ 10/01/19 06:00 11/15/19 05:59 10/15/19 06:19 Insulin Aspart (NovoLOG) BEFORE MEALS AND HS SUBQ 09/30/19 21:51 12/29/19 21:50 10/14/19 21:00 Lansoprazole (Prevacid) 30 mg DAILY GT 10/12/19 09:00 11/11/19 08:59 10/15/19 09:14 Levetiracetam (Keppra) 500 mg Q12HR GT 10/01/19 09:00 11/15/19 08:59 10/15/19 09:12 Magnesium Hydroxide (Mom) 30 ml DAILY GT 10/01/19 09:00 10/31/19 08:59 10/15/19 09:12 Methylprednisolone Sodium Succinate (Solu-MEDROL) 40 mg EVERY 6 HOURS IVP 10/13/19 16:00 01/11/20 15:59 10/15/19 06:14 Metoclopramide HCl (Reglan) 5 mg Q6H PRN IVP Nausea & Vomiting 10/02/19 09:45 11/01/19 09:44 Multivitamins (Multivitamins) 1 tab DAILY GT 10/01/19 09:00 10/31/19 08:59 10/15/19 09:13 Phenytoin (Dilantin) 300 mg DAILY GT 10/01/19 09:00 11/15/19 08:59 10/15/19 09:13 Sennosides (Senokot) 8.6 mg DAILY GT 10/01/19 09:00 10/31/19 08:59 10/15/19 09:13 Vancomycin HCl (Vanco rx to dose) 1 ea DAILY PRN MISC Per rx protocol 10/09/19 14:15 11/08/19 14:14 Vancomycin HCl 1 gm/Sodium Chloride 275 ml @ 183.708 mls/hr Q24H IVPB 10/14/19 06:00 10/19/19 05:59 10/15/19 06:14 Last 24 Hour Vital Signs Date Time Temp Pulse Resp B/P (MAP) Pulse Ox O2 Delivery O2 Flow Rate FiO2 10/15/19 09:14 104 143/84 10/15/19 09:13 143/84 10/15/19 09:00 Venturi Mask 6.0 Venturi Mask 6.0 10/15/19 08:00 101 10/15/19 08:00 98.2 104 20 143/84 (103) 98 10/15/19 04:00 97.6 88 18 115/66 (82) 100 10/15/19 04:00 96 10/15/19 01:21 74 20 98 Venturi Mask 6.0 35 10/15/19 01:09 68 20 95 Venturi Mask 6.0 35 10/15/19 00:00 97.4 82 17 115/66 (82) 100 10/15/19 00:00 76 10/14/19 21:00 Venturi Mask 6.0 Venturi Mask 6.0 10/14/19 20:20 77 18 100 Venturi Mask 6.0 35 10/14/19 20:10 80 18 98 Venturi Mask 6.0 35 10/14/19 20:10 98 Venturi Mask 6.0 35 10/14/19 20:00 97.3 76 18 132/63 (86) 100 10/14/19 20:00 69 10/14/19 17:29 131/75 10/14/19 17:27 95 131/75 (93) 10/14/19 16:00 97.7 83 20 111/58 (75) 98 10/14/19 16:00 84 10/14/19 13:24 93 20 98 Venturi Mask 6.0 35 89 16 96 5/12/20 12:00 97.7 93 20 119/74 (89) 100 10/14/19 11:41 81 10/14/19 09:03 144/73 10/14/19 09:03 100 144/73 10/14/19 09:00 Venturi Mask 6.0 Venturi Mask 6.0 10/14/19 08:00 97.9 100 20 144/73 (96) 92 10/14/19 07:58 94 10/14/19 06:55 86 18 99 Venturi Mask 6.0 35 84 18 97 10/14/19 06:45 97 Venturi Mask 6.0 35 10/14/19 04:00 96 10/14/19 04:00 98.5 92 18 110/59 (76) 95 10/14/19 03:22 86 18 100 Venturi Mask 6.0 35 10/14/19 03:00 88 20 100 Venturi Mask 6.0 35 86 18 99 10/14/19 00:00 98.1 93 18 119/63 (81) 98 10/14/19 00:00 85 10/13/19 21:00 100 Venturi Mask 6.0 35 10/13/19 21:00 Venturi Mask 8.0 10/13/19 20:00 99 10/13/19 20:00 98.7 95 19 112/58 (76) 99 10/13/19 18:09 129/81 10/13/19 16:00 100.0 131 28 129/81 (97) 94 10/13/19 16:00 123 10/13/19 15:22 100.0 10/13/19 15:00 101.8 10/13/19 12:10 155/83 10/13/19 12:00 98.5 138 18 155/83 (107) 94 10/13/19 12:00 136 Intake and Output 10/14/19 10/15/19 19:00 07:00 Intake Total 1135 ml Output Total 650 ml 850 ml Balance -650 ml 285 ml Intake Free Water 200 ml IV Total 55 ml Tube Feeding 550 ml Other 330 ml Output Urine Total 650 ml 850 ml # Bowel Movements 1 Labs Test 10/13/19 06:11 10/13/19 18:29 10/14/19 04:05 10/15/19 10:25 White Blood Count 13.4 K/UL (4.8-10.8) 20.4 K/UL (4.8-10.8) Red Blood Count 3.12 M/UL (4.70-6.10) 3.41 M/UL (4.70-6.10) Hemoglobin 10.0 G/DL (14.2-18.0) 11.3 G/DL (14.2-18.0) Hematocrit 29.7 % (42.0-52.0) 32.9 % (42.0-52.0) Mean Corpuscular Volume 95 FL (80-99) 96 FL (80-99) Mean Corpuscular Hemoglobin 32.2 PG (27.0-31.0) 33.0 PG (27.0-31.0) Mean Corpuscular Hemoglobin Concent 33.8 G/DL (32.0-36.0) 34.2 G/DL (32.0-36.0) Red Cell Distribution Width 13.6 % (11.6-14.8) 13.9 % (11.6-14.8) Platelet Count 496 K/UL (150-450) 527 K/UL (150-450) Mean Platelet Volume 5.8 FL (6.5-10.1) 5.9 FL (6.5-10.1) Neutrophils (%) (Auto) 55.5 % (45.0-75.0) % (45.0-75.0) Lymphocytes (%) (Auto) 32.3 % (20.0-45.0) % (20.0-45.0) Monocytes (%) (Auto) 6.8 % (1.0-10.0) % (1.0-10.0) Eosinophils (%) (Auto) 4.1 % (0.0-3.0) % (0.0-3.0) Basophils (%) (Auto) 1.4 % (0.0-2.0) % (0.0-2.0) Sodium Level 141 MMOL/L (136-145) 143 MMOL/L (136-145) Potassium Level 3.7 MMOL/L (3.5-5.1) 4.6 MMOL/L (3.5-5.1) Chloride Level 103 MMOL/L (98-107) 104 MMOL/L (98-107) Carbon Dioxide Level 29 MMOL/L (21-32) 32 MMOL/L (21-32) Anion Gap 9 mmol/L (5-15) 7 mmol/L (5-15) Blood Urea Nitrogen 18 mg/dL (7-18) 24 mg/dL (7-18) Creatinine 0.8 MG/DL (0.55-1.30) 0.9 MG/DL (0.55-1.30) Estimat Glomerular Filtration Rate > 60 mL/min (>60) > 60 mL/min (>60) Glucose Level 106 MG/DL (74-106) 139 MG/DL (74-106) Calcium Level 9.3 MG/DL (8.5-10.1) 10.5 MG/DL (8.5-10.1) Ferritin 740 NG/ML (8-388) Urine Color Red Urine Appearance Very cloudy Urine pH 8 (4.5-8.0) Urine Specific [place] 1.010 (1.005-1.035) Urine Protein 3+ (NEGATIVE) Urine Glucose (UA) Negative (NEGATIVE) Urine Ketones Negative (NEGATIVE) Urine Blood 5+ (NEGATIVE) Urine Nitrite Negative (NEGATIVE) Urine Bilirubin Negative (NEGATIVE) Urine Urobilinogen Normal MG/DL (0.0-1.0) Urine Leukocyte Esterase 1+ (NEGATIVE) Urine RBC Tntc /HPF (0 - 0) Urine WBC 0-2 /HPF (0 - 0) Urine Squamous Epithelial Cells None /LPF (NONE/OCC) Urine Bacteria Occasional /HPF (NONE) Differential Total Cells Counted 100 Neutrophils % (Manual) 83 % (45-75) Lymphocytes % (Manual) 14 % (20-45) Monocytes % (Manual) 0 % (1-10) Eosinophils % (Manual) 0 % (0-3) Basophils % (Manual) 0 % (0-2) Band Neutrophils 3 % (0-8) Nucleated Red Blood Cells 1 /100 WBC Platelet Estimate Increased Platelet Morphology Normal Red Blood Cell Morphology Normal Erythrocyte Sedimentation Rate 100 MM/HR (0-20) Total Bilirubin 0.3 MG/DL (0.2-1.0) Aspartate Amino Transf (AST/SGOT) 64 U/L (15-37) Alanine Aminotransferase (ALT/SGPT) 58 U/L (12-78) Alkaline Phosphatase 438 U/L (46-116) C-Reactive Protein, Quantitative 6.6 mg/dL (0.00-0.90) Total Protein 9.3 G/DL (6.4-8.2) Albumin 2.8 G/DL (3.4-5.0) Globulin 6.5 g/dL Albumin/Globulin Ratio 0.4 (1.0-2.7) Vancomycin Level Trough 17.2 ug/mL (5.0-12.0) Phosphorus Level 3.2 MG/DL (2.5-4.9) Magnesium Level 2.1 MG/DL (1.8-2.4) Thyroid Stimulating Hormone (TSH) 0.593 uiU/mL (0.358-3.740) Height (Feet): 6 Height (Inches): 0.00 Weight (Pounds): 186 Objective vitals: noted gen: nonverbal pulm: ctab, some crackles left side, v mask++ heent; nc, at, eomi Cv: rrr, no mgr abd: soft, nt, nd +gtube ext: no cce Ignacio Ponce MD October 15, 2019 11:37
--- NOTE | 2019-10-15 11:57 | Consultation ---
Consult Note Consult Note I was asked to evaluate the patient at the request of Dr. Soares for hypercalcemia and electrolyte and fluid management Day 15 of hospitalization Patient seen in room 204 Examined Data reviewed The corrected serum calcium for hypoalbuminemia is over 11.4 Past Medical History: DM, HTN, COPD, dementia, psych hx Past Surgical History: pacemaker Past Medical History: No History, Except For Hx Cardiac Problems: No Hx Hypertension: Yes Hx Pacemaker: Yes Hx COPD: Yes Hx Diabetes: Yes Hx Gastrointestinal Problems: Yes History Of Psychiatric Problem: Yes - dementia, depression, Hx Neurological Problems: Yes - Altered Mental Status. Hx Dementia: Yes - Unspecified, without behavioral disturbance Hx Seizures: Yes Hx Epilepsy: Yes - Unspecified, not intractable, without status epilepticus Hx Syncope: Yes Assessment/Plan Hypercalcemia, partly dehydration, will check thyroid function tests Hypertension Toxic metabolic encephalopathy, history of dementia Sepsis with MDR Acinetobacter Pneumonia negative COVID-19 x3 Anemia PEG Phlebitis and cellulitis of right arm Slow hydrate, 1 L half-normal saline ordered Monitor electrolytes and renal parameters calcium and phosphorus Adjust blood pressure medication, PRN clonidine for blood pressure over 170 systolic Check Dilantin level Patient on steroid , watch renal parameters electrolytes and blood sugar on steroids Per orders Hitesh Henry MD October 15, 2019 11:57
[2019-10-15 12:00] VITALS: BP 112/65
--- NOTE | 2019-10-15 13:11 | Cardiac Electrophysiology PN ---
Assessment/Plan Assessment/Plan 1. Sinus tachy due to pneumonia and dehydration. On Abx and iv fluids 2. Hypertension on amlodipine 10 mg daily and Clonidine 0.2 bid 3. PNA and WBC increased to 20 K On IV antibiotic and ruled out for COVID 4. History of seizures, on Keppra. 5. Dysphagia, s/P PEG 6. Hypernatremia and dehydration. 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 Nonverbal. GT feeding ongoing.In SR. On 6 liter Venturi Mask. [place] transfer pending WBC increased to 20 K Objective Last 24 Hour Vital Signs Date Time Temp Pulse Resp B/P (MAP) Pulse Ox O2 Delivery O2 Flow Rate FiO2 10/15/19 12:00 110 10/15/19 12:00 98.8 113 20 112/65 (81) 95 10/15/19 09:14 104 143/84 10/15/19 09:13 143/84 10/15/19 09:00 Venturi Mask 6.0 Venturi Mask 6.0 10/15/19 08:04 93 20 100 Venturi Mask 6.0 35 98 20 99 10/15/19 08:00 101 10/15/19 08:00 98.2 104 20 143/84 (103) 98 10/15/19 07:59 100 Venturi Mask 6.0 35 10/15/19 04:00 97.6 88 18 115/66 (82) 100 10/15/19 04:00 96 10/15/19 01:21 74 20 98 Venturi Mask 6.0 35 10/15/19 01:09 68 20 95 Venturi Mask 6.0 35 10/15/19 00:00 97.4 82 17 115/66 (82) 100 10/15/19 00:00 76 10/14/19 21:00 Venturi Mask 6.0 Venturi Mask 6.0 10/14/19 20:20 77 18 100 Venturi Mask 6.0 35 10/14/19 20:10 80 18 98 Venturi Mask 6.0 35 10/14/19 20:10 98 Venturi Mask 6.0 35 10/14/19 20:00 97.3 76 18 132/63 (86) 100 10/14/19 20:00 69 10/14/19 17:29 131/75 5/12/20 17:27 95 131/75 (93) 10/14/19 16:00 97.7 83 20 111/58 (75) 98 10/14/19 16:00 84 10/14/19 13:24 93 20 98 Venturi Mask 6.0 35 89 16 96 Intake and Output 10/14/19 10/15/19 19:00 07:00 Intake Total 1135 ml Output Total 650 ml 850 ml Balance -650 ml 285 ml Intake Free Water 200 ml IV Total 55 ml Tube Feeding 550 ml Other 330 ml Output Urine Total 650 ml 850 ml # Bowel Movements 1 Laboratory Tests Test 10/15/19 10:25 Phosphorus Level 3.2 MG/DL (2.5-4.9) Magnesium Level 2.1 MG/DL (1.8-2.4) Thyroid Stimulating Hormone (TSH) 0.593 uiU/mL (0.358-3.740) Microbiology Date/Time Source Procedure Growth Status 10/13/19 18:46 Blood Blood Culture - Preliminary NO GROWTH AFTER 24 HOURS Resulted 10/13/19 18:40 Blood Blood Culture - Preliminary NO GROWTH AFTER 24 HOURS Resulted 10/13/19 18:29 Indwelling Cath Urine Culture - Preliminary Resulted Objective HEAD AND NECK: No JVD. LUNGS: Coarse rhonchi. CARDIOVASCULAR: Regular S1 and S2 with no gallop. ABDOMEN: Status post G-tube. EXTREMITIES: No pitting edema. Sajan Campbell MD October 15, 2019 13:11
[2019-10-15 16:00] VITALS: BP 127/75
[2019-10-15 20:00] VITALS: BP 127/98
--- NOTE | 2019-10-15 20:41 | Diagnostic Imaging Report ---
Indication: Abdominal pain. Elevated LFTs. Technique: Multiplanar grayscale and duplex Doppler imaging of the abdomen Comparison: Correlation made to MRI of the abdomen 05/22/[address] of the abdomen 05/16/2019 Findings: Reportedly difficult scan due to patient's body habitus. Scan is also limited due to overlying bowel gas. Within these limitations the following observations are made: Partially imaged head of the pancreas is grossly unremarkable. The body and tail are not visualized. Hepatic contour appears smooth. No focal hepatic mass lesions are demonstrated sonographically. Liver is normal in size with the right hepatic lobe measuring 13.3 cm in length. The portal vein is patent. The gallbladder appears slightly contracted with mild thickening of the wall which measures 3.2 mm. No gallstones are demonstrated. Common bile duct is again noted to be dilated measuring 8.7 mm diameter. No appreciable intrahepatic biliary ductal dilatation. Right kidney is not visualized. Left kidney demonstrates normal echogenicity. There is no hydronephrosis or sonographically appreciable renal stone. Spleen is normal in size and appearance. Imaged portions of the proximal abdominal aorta are normal in caliber. The mid and distal aorta are not visualized due to overlying bowel gas. IMPRESSION: Limited exam as above. Borderline thickening of the wall the gallbladder which is nonspecific. No gallstones or pericholecystic fluid demonstrated. Persistent dilatation of the common bile duct which may be on the basis senescent changes, especially as similar findings were noted previously. No appreciable intrahepatic biliary ductal dilatation. Right kidney not visualized, reportedly due to patient contracture and inability to cooperate with exam positioning.
--- NOTE | 2019-10-15 21:18 | General Progress Note ---
Assessment/Plan Problem List: (1) Fever ICD Codes: R50.9 - Fever, unspecified SNOMED: 840174565 (2) COPD (chronic obstructive pulmonary disease) ICD Codes: J44.9 - Chronic obstructive pulmonary disease, unspecified SNOMED: 62780158 (3) Severe sepsis ICD Codes: A41.9 - Sepsis, unspecified organism; R65.20 - Severe sepsis without septic shock SNOMED: 07178760 (4) PEG (percutaneous endoscopic gastrostomy) adjustment/replacement/removal ICD Codes: Z43.1 - Encounter for attention to gastrostomy SNOMED: 782165346, 251366048 (5) Protein-calorie malnutrition, severe ICD Codes: E43 - Unspecified severe protein-calorie malnutrition SNOMED: 824754238 (6) Acute febrile illness ICD Codes: R50.9 - Fever, unspecified SNOMED: 708559217 (7) PNA (pneumonia) ICD Codes: J18.9 - Pneumonia, unspecified organism SNOMED: 091604671 (8) Suspected COVID-19 virus infection ICD Codes: Z20.828 - Contact with and (suspected) exposure to other viral communicable diseases SNOMED: 945974567 (9) Congestion secondary to upper respiratory illness Status: unchanged Status Narrative dc planning to ngoc wbc jumped up to 20k will repeat cbc in am to see a trend going down abx per id resp insuff pna sepsis malnutrtion Assessment/Plan: cellulitis of UE MDR SEPSIS repeat covid is negative positive blood cx pna malnutrition afebrile worsening leukocytosis resp insuff Subjective ROS Limited/Unobtainable: Yes Allergies: Coded Allergies: PNEUMOCOCCAL VACCINE (Unverified Allergy, Unknown, 10/07/18) Uncoded Allergies: PNA VACCINE (Allergy, Unknown, 09/30/19) Objective Last 24 Hour Vital Signs Date Time Temp Pulse Resp B/P (MAP) Pulse Ox O2 Delivery O2 Flow Rate FiO2 10/15/19 19:51 96 Venturi Mask 6.0 35 10/15/19 19:48 91 20 100 Venturi Mask 6.0 35 88 20 96 10/15/19 16:00 98.1 102 20 127/75 (92) 93 10/15/19 16:00 98 10/15/19 14:02 90 20 100 Venturi Mask 6.0 35 95 20 99 5/13/20 14:00 112/65 10/15/19 12:00 110 10/15/19 12:00 98.8 113 20 112/65 (81) 95 10/15/19 09:14 104 143/84 10/15/19 09:13 143/84 10/15/19 09:00 Venturi Mask 6.0 Venturi Mask 6.0 10/15/19 08:04 93 20 100 Venturi Mask 6.0 35 98 20 99 10/15/19 08:00 89 20 100 Venturi Mask 6.0 35 88 20 98 10/15/19 08:00 101 10/15/19 08:00 98.2 104 20 143/84 (103) 98 10/15/19 07:59 100 Venturi Mask 6.0 35 10/15/19 04:00 97.6 88 18 115/66 (82) 100 10/15/19 04:00 96 10/15/19 01:21 74 20 98 Venturi Mask 6.0 35 10/15/19 01:09 68 20 95 Venturi Mask 6.0 35 10/15/19 00:00 97.4 82 17 115/66 (82) 100 10/15/19 00:00 76 Intake and Output 10/14/19 10/15/19 19:00 07:00 Intake Total 1135 ml Output Total 650 ml 850 ml Balance -650 ml 285 ml Intake Free Water 200 ml IV Total 55 ml Tube Feeding 550 ml Other 330 ml Output Urine Total 650 ml 850 ml # Bowel Movements 1 Laboratory Tests 10/15/19 10:25: Phosphorus Level 3.2, Magnesium Level 2.1, Thyroid Stimulating Hormone (TSH) 0.593 Height (Feet): 6 Height (Inches): 0.00 Weight (Pounds): 186 Konrad Soares MD October 15, 2019 21:18
[2019-10-16] VITALS: BP 129/82
[2019-10-16] MEDS: Albuterol ud Inhalation HHN SCH ×4 (01:23→19:40)
[2019-10-16] MEDS: Donepezil 5mg Tab GT SCH ×2 (01:37→20:30)
[2019-10-16] MEDS: Phenytoin Susp 100mg/4ml GT SCH ×2 (01:47→20:30)
[2019-10-16] MEDS: levETIRAcetam 500mg/5ml Liquid GT SCH ×3 (01:47→20:30)
[2019-10-16] MEDS: Cefepime HCl 1 GM in D5W 55 ML IVPB SCH ×2 (01:48→09:28)
[2019-10-16] MEDS: Solu-MEDROL 40mg Inj IVP SCH ×4 (01:52→17:31)
[2019-10-16] MEDS: Heparin 5000 units/ml inj SUBQ SCH ×4 (02:32→22:13)
[2019-10-16 04:00] VITALS: BP 130/74
[2019-10-16] MEDS: NovoLOG Insulin Flexpen SUBQ SCH ×4 (06:30→20:32)
[2019-10-16] MEDS: Vancomycin 1 GM in NS 275 ML IVPB SCH (07:04)
[2019-10-16 07:28] LABS: BASOPHILS % (AUTO) 0.9 % (0.0-2.0); HEMATOCRIT 32.2 % (42.0-52.0); HEMOGLOBIN 10.8 G/DL (14.2-18.0); LYMPHOCYTES % (AUTO) 13.1 % (20.0-45.0); MEAN CORPUSCULAR VOLUME 97 FL (80-99); MONOCYTES % (AUTO) 7.3 % (1.0-10.0); NEUTROPHILS % (AUTO) 78.7 % (45.0-75.0); PLATELET COUNT 479 K/UL (150-450); RED BLOOD COUNT 3.32 M/UL (4.70-6.10); RED CELL DISTRIBUTION WIDTH 14.3 % (11.6-14.8)
[2019-10-16 07:51] LABS: ALANINE AMINOTRANSFERASE 76 U/L (12-78); ALBUMIN 2.9 G/DL (3.4-5.0); ALBUMIN/GLOBULIN RATIO 0.5 (1.0-2.7); ALKALINE PHOSPHATASE 370 U/L (46-116); ANION GAP 6 mmol/L (5-15); ASPARTATE AMINO TRANSFERASE 77 U/L (15-37); BILIRUBIN,TOTAL 0.2 MG/DL (0.2-1.0); BLOOD UREA NITROGEN 25 mg/dL (7-18); CARBON DIOXIDE 32 MMOL/L (21-32); CHLORIDE 105 MMOL/L (98-107); CREATINE KINASE 23 U/L (26-308); CREATININE 0.8 MG/DL (0.55-1.30); GAMMA GLUTAMYL TRANSPEPTIDASE 1130 U/L (5-85); PHOSPHORUS 2.8 MG/DL (2.5-4.9); POTASSIUM 4.3 MMOL/L (3.5-5.1); SODIUM 143 MMOL/L (136-145)
[2019-10-16 08:00] VITALS: BP 138/78
[2019-10-16] MEDS: Milk of Magnesia 30ml Ud GT SCH (09:26)
[2019-10-16] MEDS: Docusate 100mg/10ml Liq GT SCH ×3 (09:26→17:31)
[2019-10-16] MEDS: Ascorbic Acid 500mg tab GT SCH ×2 (09:26→17:31)
[2019-10-16] MEDS: Sennosides 8.6mg tab GT SCH (09:28)
--- NOTE | 2019-10-16 09:53 | General Progress Note ---
Assessment/Plan Status: unchanged Assessment/Plan: 1. Hypertension. 2. Diabetes. 3. COPD. 4. History of pacemaker placement. 5. Dementia. 6. gastroparesis reglan GTF GT flushes repeat labs pending dc will fu Subjective ROS Limited/Unobtainable: No Allergies: Coded Allergies: PNEUMOCOCCAL VACCINE (Unverified Allergy, Unknown, 10/07/18) Uncoded Allergies: PNA VACCINE (Allergy, Unknown, 09/30/19) Objective Last 24 Hour Vital Signs Date Time Temp Pulse Resp B/P (MAP) Pulse Ox O2 Delivery O2 Flow Rate FiO2 10/16/19 09:28 79 138/78 10/16/19 08:00 97.2 79 20 138/78 (98) 100 10/16/19 07:03 138/94 10/16/19 04:00 79 10/16/19 04:00 97.3 77 19 130/74 (92) 100 10/16/19 01:51 130/94 10/16/19 01:24 93 20 100 Venturi Mask 6.0 35 94 20 97 10/16/19 00:00 70 10/16/19 00:00 97.1 83 18 129/82 (98) 99 10/15/19 21:00 Venturi Mask 6.0 Venturi Mask 6.0 10/15/19 20:00 92 10/15/19 20:00 96.7 87 18 127/98 (108) 97 10/15/19 19:51 96 Venturi Mask 6.0 35 10/15/19 19:48 91 20 100 Venturi Mask 6.0 35 88 20 96 10/15/19 16:00 98.1 102 20 127/75 (92) 93 10/15/19 16:00 98 10/15/19 14:02 90 20 100 Venturi Mask 6.0 35 95 20 99 10/15/19 14:00 112/65 10/15/19 12:00 110 10/15/19 12:00 98.8 113 20 112/65 (81) 95 Intake and Output 10/15/19 10/16/19 19:00 07:00 Output Total 1100 ml Balance -1100 ml Output Urine Total 1100 ml # Voids 2 # Bowel Movements 2 1 Laboratory Tests 10/15/19 10:25: Phosphorus Level 3.2, Magnesium Level 2.1, Thyroid Stimulating Hormone (TSH) 0.593 10/16/19 06:20: Phosphorus Level 2.8, Magnesium Level 2.2, White Blood Count 16.0H, Red Blood Count 3.32L, Hemoglobin 10.8L, Hematocrit 32.2L, Mean Corpuscular Volume 97, Mean Corpuscular Hemoglobin 32.5H, Mean Corpuscular Hemoglobin Concent 33.5, Red Cell Distribution Width 14.3, Platelet Count 479H, Mean Platelet Volume 6.1L , Neutrophils (%) (Auto) 78.7H, Lymphocytes (%) (Auto) 13.1L, Monocytes (%) ( Auto) 7.3, Eosinophils (%) (Auto) 0.0, Basophils (%) (Auto) 0.9, Sodium Level 143, Potassium Level 4.3, Chloride Level 105, Carbon Dioxide Level 32, Anion Gap 6, Blood Urea Nitrogen 25H, Creatinine 0.8, Estimat Glomerular Filtration Rate > 60, Glucose Level 112H, Uric Acid 4.0, Calcium Level 10.0, Total Bilirubin 0.2, Gamma Glutamyl Transpeptidase 1130H, Aspartate Amino Transf (AST/ SGOT) 77H, Alanine Aminotransferase (ALT/SGPT) 76, Alkaline Phosphatase 370H, Total Creatine Kinase 23L, Troponin I 0.017, C-Reactive Protein, Quantitative 1.5H, Pro-B-Type Natriuretic Peptide 309H, Total Protein 8.8H, Albumin 2.9L, Globulin 5.9, Albumin/Globulin Ratio 0.5L, Phenytoin (Dilantin) Level 9.0L Height (Feet): 6 Height (Inches): 0.00 Weight (Pounds): 186 General Appearance: no apparent distress EENT: normal ENT inspection Neck: supple Cardiovascular: normal rate Respiratory/Chest: decreased breath sounds Abdomen: normal bowel sounds, non tender, soft Extremities: non-tender Terence Anton MD October 16, 2019 09:53
--- NOTE | 2019-10-16 10:14 | Pulmonology Progress Note ---
Subjective ROS Limited/Unobtainable: No Interval Events: None new, on 6L/min O2 Constitutional: Denies: fever HEENT: Repors: no symptoms Respiratory: Reports: dry cough, shortness of breath Cardiovascular: Reports: no symptoms Gastrointestinal/Abdominal: Reports: no symptoms Allergies: Coded Allergies: PNEUMOCOCCAL VACCINE (Unverified Allergy, Unknown, 10/07/18) Uncoded Allergies: PNA VACCINE (Allergy, Unknown, 09/30/19) All Systems: reviewed and negative except above Objective Last 24 Hour Vital Signs Date Time Temp Pulse Resp B/P (MAP) Pulse Ox O2 Delivery O2 Flow Rate FiO2 10/16/19 09:28 79 138/78 10/16/19 08:00 97.2 79 20 138/78 (98) 100 10/16/19 07:03 138/94 10/16/19 04:00 79 10/16/19 04:00 97.3 77 19 130/74 (92) 100 10/16/19 01:51 130/94 10/16/19 01:24 93 20 100 Venturi Mask 6.0 35 94 20 97 10/16/19 00:00 70 10/16/19 00:00 97.1 83 18 129/82 (98) 99 10/15/19 21:00 Venturi Mask 6.0 Venturi Mask 6.0 10/15/19 20:00 92 10/15/19 20:00 96.7 87 18 127/98 (108) 97 10/15/19 19:51 96 Venturi Mask 6.0 35 10/15/19 19:48 91 20 100 Venturi Mask 6.0 35 88 20 96 10/15/19 16:00 98.1 102 20 127/75 (92) 93 10/15/19 16:00 98 10/15/19 14:02 90 20 100 Venturi Mask 6.0 35 95 20 99 10/15/19 14:00 112/65 10/15/19 12:00 110 10/15/19 12:00 98.8 113 20 112/65 (81) 95 Intake and Output 10/15/19 10/16/19 19:00 07:00 Output Total 1100 ml Balance -1100 ml Output Urine Total 1100 ml # Voids 2 # Bowel Movements 2 1 General Appearance: no acute distress HEENT: mucous membranes moist Respiratory/Chest: chest wall non-tender, decreased breath sounds Cardiovascular: normal peripheral pulses, normal rate Abdomen: soft, non tender, other - GT feeding Genitourinary: other - Macedo catheter , Hematuria Extremities: no edema Skin: other - skin induration in right arm Neurologic/Psychiatric: aphasia Microbiology Date/Time Source Procedure Growth Status 10/13/19 18:46 Blood Blood Culture - Preliminary NO GROWTH AFTER 48 HOURS Resulted 10/13/19 18:40 Blood Blood Culture - Preliminary NO GROWTH AFTER 48 HOURS Resulted 10/13/19 18:29 Indwelling Cath Urine Culture - Preliminary Acinetobacter Baumanii - Mdr Resulted Laboratory Tests 10/15/19 10:25: Phosphorus Level 3.2, Magnesium Level 2.1, Thyroid Stimulating Hormone (TSH) 0.593 10/16/19 06:20: Phosphorus Level 2.8, Magnesium Level 2.2, White Blood Count 16.0H, Red Blood Count 3.32L, Hemoglobin 10.8L, Hematocrit 32.2L, Mean Corpuscular Volume 97, Mean Corpuscular Hemoglobin 32.5H, Mean Corpuscular Hemoglobin Concent 33.5, Red Cell Distribution Width 14.3, Platelet Count 479H, Mean Platelet Volume 6.1L , Neutrophils (%) (Auto) 78.7H, Lymphocytes (%) (Auto) 13.1L, Monocytes (%) ( Auto) 7.3, Eosinophils (%) (Auto) 0.0, Basophils (%) (Auto) 0.9, Sodium Level 143, Potassium Level 4.3, Chloride Level 105, Carbon Dioxide Level 32, Anion Gap 6, Blood Urea Nitrogen 25H, Creatinine 0.8, Estimat Glomerular Filtration Rate > 60, Glucose Level 112H, Uric Acid 4.0, Calcium Level 10.0, Total Bilirubin 0.2, Gamma Glutamyl Transpeptidase 1130H, Aspartate Amino Transf (AST/ SGOT) 77H, Alanine Aminotransferase (ALT/SGPT) 76, Alkaline Phosphatase 370H, Total Creatine Kinase 23L, Troponin I 0.017, C-Reactive Protein, Quantitative 1.5H, Pro-B-Type Natriuretic Peptide 309H, Total Protein 8.8H, Albumin 2.9L, Globulin 5.9, Albumin/Globulin Ratio 0.5L, Phenytoin (Dilantin) Level 9.0L Current Medications Medications (Trade) Dose Ordered Sig/Nidhi Route PRN Reason Start Time Stop Time Status Last Admin Dose Admin Acetaminophen (Tylenol) 650 mg Q4H PRN GT Pain/Temp >100.5 10/01/19 03:30 10/30/19 23:29 10/13/19 14:52 Albuterol Sulfate (Proventil) 2.5 mg Q6HRT HHN 10/14/19 13:00 10/18/19 15:59 10/16/19 01:23 Amlodipine Besylate (Norvasc) 10 mg DAILY GT 10/16/19 09:00 10/31/19 08:59 10/16/19 09:28 Ascorbic Acid (Vitamin C) 250 mg BID GT 10/01/19 09:00 10/31/19 08:59 10/16/19 09:26 Cefepime HCl 1 gm/ Dextrose 55 ml @ 110 mls/hr EVERY 12 HOURS IVPB 10/14/19 09:00 10/21/19 08:59 10/16/19 09:28 Clonidine HCl (Catapres Tab) 0.1 mg Q4H PRN GT bp over 170 syst 10/15/19 12:15 01/13/20 12:14 Clonidine HCl (Catapres Tab) 0.1 mg Q8HR GT 10/15/19 14:00 12/30/19 00:00 10/16/19 07:03 Dextrose (Dextrose 50%) 25 ml Q30M PRN IV Hypoglycemia 09/30/19 22:00 12/29/19 21:59 Dextrose (Dextrose 50%) 50 ml Q30M PRN IV Hypoglycemia 09/30/19 22:00 12/29/19 21:59 Docusate Sodium (Colace) 100 mg TID GT 10/15/19 13:00 10/31/19 08:59 10/16/19 09:26 Donepezil HCl (Aricept) 5 mg BEDTIME GT 10/01/19 21:00 10/31/19 20:59 10/16/19 01:37 Heparin Sodium (Porcine) (Heparin 5000 units/ml) 5,000 units EVERY 8 HOURS SUBQ 10/01/19 06:00 11/15/19 05:59 10/16/19 07:19 Insulin Aspart (NovoLOG) BEFORE MEALS AND HS SUBQ 09/30/19 21:51 12/29/19 21:50 10/14/19 21:00 Lansoprazole (Prevacid) 30 mg BID GT 10/15/19 12:15 11/14/19 12:14 10/16/19 09:29 Levetiracetam (Keppra) 500 mg Q12HR GT 10/01/19 09:00 11/15/19 08:59 10/16/19 09:26 Magnesium Hydroxide (Mom) 30 ml DAILY GT 10/01/19 09:00 10/31/19 08:59 10/16/19 09:26 Methylprednisolone Sodium Succinate (Solu-MEDROL) 40 mg EVERY 6 HOURS IVP 10/13/19 16:00 01/11/20 15:59 10/16/19 07:03 Metoclopramide HCl (Reglan) 5 mg Q6H PRN IVP Nausea & Vomiting 10/02/19 09:45 11/01/19 09:44 Multivitamins (Multivitamins) 1 tab DAILY GT 10/01/19 09:00 10/31/19 08:59 10/16/19 09:28 Phenytoin (Dilantin) 300 mg QHS GT 10/15/19 21:00 11/15/19 08:59 10/16/19 01:47 Sennosides (Senokot) 8.6 mg DAILY GT 10/01/19 09:00 10/31/19 08:59 10/16/19 09:28 Vancomycin HCl (Vanco rx to dose) 1 ea DAILY PRN MISC Per rx protocol 10/09/19 14:15 11/08/19 14:14 Vancomycin HCl 1 gm/Sodium Chloride 275 ml @ 183.708 mls/hr Q24H IVPB 10/14/19 06:00 10/19/19 05:59 10/16/19 07:04 Assessment/Plan Assessment/Plan IMPRESSION: 1. Right lung pneumonia. COVID pcr x 3 negative 2. residential resident. 3. Recent hospitalization at acute hospital. 4. Diabetes mellitus. 5. Hypertension. 6. COPD. 7. Pacemaker. 8. Acintebacter bacteremia DISCUSSION: Continue broad-spectrum antibiotics. Continue oxygen, pulmonary hygiene. I will follow carefully. COVID 19 pcr x 3 negative Requiring ventimask O2; 35% Fio2 CXR unchanged OK to dc to [facility] Omar Syed MD October 16, 2019 10:14
--- NOTE | 2019-10-16 11:00 | Nephrology Progress Note ---
Assessment/Plan Problem List: (1) Hypercalcemia (2) Dehydration (3) Leukocytosis (4) HTN (hypertension) (5) Encephalopathy due to metabolic factor or toxin Assessment Hypercalcemia, partly dehydration, will check thyroid function tests Hypertension Toxic metabolic encephalopathy, history of dementia Sepsis with MDR Acinetobacter Pneumonia negative COVID-19 x3 Anemia PEG Phlebitis and cellulitis of right arm Plan White blood cells down from 20,000-16,000 Slow hydrate, 1 L half-normal saline ordered, serum calcium slightly improved Start calcitonin nasal spray Monitor electrolytes and renal parameters calcium and phosphorus Adjust blood pressure medication, PRN clonidine for blood pressure over 170 systolic Check Dilantin level Patient on steroid , watch renal parameters electrolytes and blood sugar on steroids Per orders Subjective ROS Limited/Unobtainable: No Constitutional: Reports: malaise, weakness Objective Objective Last 24 Hour Vital Signs Date Time Temp Pulse Resp B/P (MAP) Pulse Ox O2 Delivery O2 Flow Rate FiO2 10/16/19 09:28 79 138/78 10/16/19 08:00 97.2 79 20 138/78 (98) 100 10/16/19 07:03 138/94 10/16/19 04:00 79 10/16/19 04:00 97.3 77 19 130/74 (92) 100 10/16/19 01:51 130/94 10/16/19 01:24 93 20 100 Venturi Mask 6.0 35 94 20 97 10/16/19 00:00 70 10/16/19 00:00 97.1 83 18 129/82 (98) 99 10/15/19 21:00 Venturi Mask 6.0 Venturi Mask 6.0 10/15/19 20:00 92 10/15/19 20:00 96.7 87 18 127/98 (108) 97 10/15/19 19:51 96 Venturi Mask 6.0 35 10/15/19 19:48 91 20 100 Venturi Mask 6.0 35 88 20 96 10/15/19 16:00 98.1 102 20 127/75 (92) 93 10/15/19 16:00 98 10/15/19 14:02 90 20 100 Venturi Mask 6.0 35 95 20 99 10/15/19 14:00 112/65 10/15/19 12:00 110 10/15/19 12:00 98.8 113 20 112/65 (81) 95 Intake and Output 10/15/19 10/16/19 19:00 07:00 Output Total 1100 ml Balance -1100 ml Output Urine Total 1100 ml # Voids 2 # Bowel Movements 2 1 Laboratory Tests 10/16/19 06:20: White Blood Count 16.0H, Red Blood Count 3.32L, Hemoglobin 10.8L, Hematocrit 32.2L, Mean Corpuscular Volume 97, Mean Corpuscular Hemoglobin 32.5H, Mean Corpuscular Hemoglobin Concent 33.5, Red Cell Distribution Width 14.3, Platelet Count 479H, Mean Platelet Volume 6.1L, Neutrophils (%) (Auto) 78.7H, Lymphocytes (%) (Auto) 13.1L, Monocytes (%) (Auto) 7.3, Eosinophils (%) (Auto) 0.0, Basophils (%) (Auto) 0.9, Sodium Level 143, Potassium Level 4.3, Chloride Level 105, Carbon Dioxide Level 32, Anion Gap 6, Blood Urea Nitrogen 25H, Creatinine 0.8, Estimat Glomerular Filtration Rate > 60, Glucose Level 112H, Uric Acid 4.0, Calcium Level 10.0, Phosphorus Level 2.8, Magnesium Level 2.2, Total Bilirubin 0.2, Gamma Glutamyl Transpeptidase 1130H, Aspartate Amino Transf (AST/SGOT) 77H, Alanine Aminotransferase (ALT/SGPT) 76, Alkaline Phosphatase 370H, Total Creatine Kinase 23L, Troponin I 0.017, C-Reactive Protein, Quantitative 1.5H, Pro-B-Type Natriuretic Peptide 309H, Total Protein 8.8H, Albumin 2.9L, Globulin 5.9, Albumin/Globulin Ratio 0.5L, Phenytoin ( Dilantin) Level 9.0L Height (Feet): 6 Height (Inches): 0.00 Weight (Pounds): 186 General Appearance: no apparent distress, lethargic, confused Cardiovascular: normal rate Respiratory/Chest: decreased breath sounds Abdomen: distended Hitesh Henry MD October 16, 2019 11:00
[2019-10-16] MEDS ORDERED: SOLU-MEDRO40 MG/1 M2 IJ (11:32)
[2019-10-16] MEDS ORDERED: SOLU-MEDRO40 MG/1 M2 IV (11:34)
--- NOTE | 2019-10-16 11:35 | Infectious Diseases Prog Note ---
Assessment/Plan Assessment/Plan IMPRESSION: 1. MDR Acinetobacter sepsis treated 2. Pneumonia. Negative COVID19 X 3 3. Unstageable pressure ulcer that doesn't seem to be infected . 4. Hypernatremia. 5. Anemia. 6. Advanced dementia. 7. History of diverticulosis. 8. Gastrostomy status. 9. Leukocytosis & fever 10 Phlebitis & cellulitis of R arm 11. MDR Acinetobacter UTI RECOMMENDATION: Discontinue IV Vancomycin & Cefepime Start on Polymyxin B Agree with transfer to [place] Subjective ROS Limited/Unobtainable: Yes Constitutional: Denies: fever Allergies: Coded Allergies: PNEUMOCOCCAL VACCINE (Unverified Allergy, Unknown, 10/07/18) Uncoded Allergies: PNA VACCINE (Allergy, Unknown, 09/30/19) Objective Vital Signs Last 24 Hour Vital Signs Date Time Temp Pulse Resp B/P (MAP) Pulse Ox O2 Delivery O2 Flow Rate FiO2 10/16/19 09:28 79 138/78 10/16/19 09:00 Venturi Mask 6.0 Venturi Mask 6.0 10/16/19 08:00 97.2 79 20 138/78 (98) 100 10/16/19 07:28 79 10/16/19 07:03 138/94 10/16/19 04:00 79 10/16/19 04:00 97.3 77 19 130/74 (92) 100 10/16/19 01:51 130/94 10/16/19 01:24 93 20 100 Venturi Mask 6.0 35 94 20 97 10/16/19 00:00 70 10/16/19 00:00 97.1 83 18 129/82 (98) 99 10/15/19 21:00 Venturi Mask 6.0 Venturi Mask 6.0 10/15/19 20:00 92 10/15/19 20:00 96.7 87 18 127/98 (108) 97 10/15/19 19:51 96 Venturi Mask 6.0 35 10/15/19 19:48 91 20 100 Venturi Mask 6.0 35 88 20 96 10/15/19 16:00 98.1 102 20 127/75 (92) 93 10/15/19 16:00 98 10/15/19 14:02 90 20 100 Venturi Mask 6.0 35 95 20 99 10/15/19 14:00 112/65 10/15/19 12:00 110 10/15/19 12:00 98.8 113 20 112/65 (81) 95 Height (Feet): 6 Height (Inches): 0.00 Weight (Pounds): 186 General Appearance: no acute distress HEENT: mucous membranes moist Respiratory/Chest: lungs clear, other - oxygen by mask Cardiovascular: normal rate Abdomen: soft, non tender, other - NG tube feeding Extremities: no edema Neurologic/Psychiatric: aphasia, other - opens eyes Microbiology Date/Time Source Procedure Growth Status 10/13/19 18:46 Blood Blood Culture - Preliminary NO GROWTH AFTER 48 HOURS Resulted 10/13/19 18:40 Blood Blood Culture - Preliminary NO GROWTH AFTER 48 HOURS Resulted 10/13/19 18:29 Indwelling Cath Urine Culture - Preliminary Acinetobacter Baumanii - Mdr Resulted Laboratory Tests Test 10/16/19 06:20 White Blood Count 16.0 K/UL (4.8-10.8) H Red Blood Count 3.32 M/UL (4.70-6.10) L Hemoglobin 10.8 G/DL (14.2-18.0) L Hematocrit 32.2 % (42.0-52.0) L Mean Corpuscular Volume 97 FL (80-99) Mean Corpuscular Hemoglobin 32.5 PG (27.0-31.0) H Mean Corpuscular Hemoglobin Concent 33.5 G/DL (32.0-36.0) Red Cell Distribution Width 14.3 % (11.6-14.8) Platelet Count 479 K/UL (150-450) H Mean Platelet Volume 6.1 FL (6.5-10.1) L Neutrophils (%) (Auto) 78.7 % (45.0-75.0) H Lymphocytes (%) (Auto) 13.1 % (20.0-45.0) L Monocytes (%) (Auto) 7.3 % (1.0-10.0) Eosinophils (%) (Auto) 0.0 % (0.0-3.0) Basophils (%) (Auto) 0.9 % (0.0-2.0) Sodium Level 143 MMOL/L (136-145) Potassium Level 4.3 MMOL/L (3.5-5.1) Chloride Level 105 MMOL/L (98-107) Carbon Dioxide Level 32 MMOL/L (21-32) Anion Gap 6 mmol/L (5-15) Blood Urea Nitrogen 25 mg/dL (7-18) H Creatinine 0.8 MG/DL (0.55-1.30) Estimat Glomerular Filtration Rate > 60 mL/min (>60) Glucose Level 112 MG/DL (74-106) H Uric Acid 4.0 MG/DL (2.6-7.2) Calcium Level 10.0 MG/DL (8.5-10.1) Phosphorus Level 2.8 MG/DL (2.5-4.9) Magnesium Level 2.2 MG/DL (1.8-2.4) Total Bilirubin 0.2 MG/DL (0.2-1.0) Gamma Glutamyl Transpeptidase 1130 U/L (5-85) H Aspartate Amino Transf (AST/SGOT) 77 U/L (15-37) H Alanine Aminotransferase (ALT/SGPT) 76 U/L (12-78) Alkaline Phosphatase 370 U/L (46-116) H Total Creatine Kinase 23 U/L (26-308) L Troponin I 0.017 ng/mL (0.000-0.056) C-Reactive Protein, Quantitative 1.5 mg/dL (0.00-0.90) H Pro-B-Type Natriuretic Peptide 309 pg/mL (0-125) H Total Protein 8.8 G/DL (6.4-8.2) H Albumin 2.9 G/DL (3.4-5.0) L Globulin 5.9 g/dL Albumin/Globulin Ratio 0.5 (1.0-2.7) L Phenytoin (Dilantin) Level 9.0 ug/mL (10-20) L Current Medications Medications (Trade) Dose Ordered Sig/Nidhi Route PRN Reason Start Time Stop Time Status Last Admin Dose Admin Acetaminophen (Tylenol) 650 mg Q4H PRN GT Pain/Temp >100.5 10/01/19 03:30 10/30/19 23:29 10/13/19 14:52 Albuterol Sulfate (Proventil) 2.5 mg Q6HRT HHN 10/14/19 13:00 10/18/19 15:59 10/16/19 01:23 Amlodipine Besylate (Norvasc) 10 mg DAILY GT 10/16/19 09:00 10/31/19 08:59 10/16/19 09:28 Ascorbic Acid (Vitamin C) 250 mg BID GT 10/01/19 09:00 10/31/19 08:59 10/16/19 09:26 Calcitonin [place] (Miacalcin) 1 sprays DAILY NASAL 10/17/19 09:00 01/15/20 08:59 Cefepime HCl 1 gm/ Dextrose 55 ml @ 110 mls/hr EVERY 12 HOURS IVPB 10/14/19 09:00 10/21/19 08:59 10/16/19 09:28 Clonidine HCl (Catapres Tab) 0.1 mg Q4H PRN GT bp over 170 syst 10/15/19 12:15 01/13/20 12:14 Clonidine HCl (Catapres Tab) 0.1 mg Q8HR GT 10/15/19 14:00 12/30/19 00:00 10/16/19 07:03 Dextrose (Dextrose 50%) 25 ml Q30M PRN IV Hypoglycemia 09/30/19 22:00 12/29/19 21:59 Dextrose (Dextrose 50%) 50 ml Q30M PRN IV Hypoglycemia 09/30/19 22:00 12/29/19 21:59 Docusate Sodium (Colace) 100 mg TID GT 10/15/19 13:00 10/31/19 08:59 10/16/19 09:26 Donepezil HCl (Aricept) 5 mg BEDTIME GT 10/01/19 21:00 10/31/19 20:59 10/16/19 01:37 Heparin Sodium (Porcine) (Heparin 5000 units/ml) 5,000 units EVERY 8 HOURS SUBQ 10/01/19 06:00 11/15/19 05:59 10/16/19 07:19 Insulin Aspart (NovoLOG) BEFORE MEALS AND HS SUBQ 09/30/19 21:51 12/29/19 21:50 10/14/19 21:00 Lansoprazole (Prevacid) 30 mg BID GT 10/15/19 12:15 11/14/19 12:14 10/16/19 09:29 Levetiracetam (Keppra) 500 mg Q12HR GT 10/01/19 09:00 11/15/19 08:59 10/16/19 09:26 Magnesium Hydroxide (Mom) 30 ml DAILY GT 10/01/19 09:00 10/31/19 08:59 10/16/19 09:26 Methylprednisolone Sodium Succinate (Solu-MEDROL) 40 mg EVERY 6 HOURS IVP 10/13/19 16:00 01/11/20 15:59 10/16/19 07:03 Metoclopramide HCl (Reglan) 5 mg Q6H PRN IVP Nausea & Vomiting 10/02/19 09:45 11/01/19 09:44 Multivitamins (Multivitamins) 1 tab DAILY GT 10/01/19 09:00 10/31/19 08:59 10/16/19 09:28 Phenytoin (Dilantin) 300 mg QHS GT 10/15/19 21:00 11/15/19 08:59 10/16/19 01:47 Sennosides (Senokot) 8.6 mg DAILY GT 10/01/19 09:00 10/31/19 08:59 10/16/19 09:28 Vancomycin HCl (Vanco rx to dose) 1 ea DAILY PRN MISC Per rx protocol 10/09/19 14:15 11/08/19 14:14 Vancomycin HCl 1 gm/Sodium Chloride 275 ml @ 183.708 mls/hr Q24H IVPB 10/14/19 06:00 10/19/19 05:59 10/16/19 07:04 Curtis Farah MD October 16, 2019 11:35
[2019-10-16 12:00] VITALS: BP 135/76
[2019-10-16] MEDS ORDERED: [UNRECOGNIZED DRUG - CODE] IVPB (12:49)
[2019-10-16] MEDS ORDERED: NOVOLOG100 UNITS1 (12:54)
--- NOTE | 2019-10-16 13:20 | Cardiac Electrophysiology PN ---
Assessment/Plan Assessment/Plan 1. Sinus tachy due to pneumonia and dehydration. On Abx and iv fluids 2. Hypertension on amlodipine 10 mg daily and Clonidine 0.2 bid 3. PNA and WBC 20 K On IV antibiotic improved to 16 K Ruled out for COVID 4. History of seizures, on Keppra. 5. Dysphagia, s/P PEG 6. Hypernatremia and dehydration. 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 Nonverbal. GT feeding ongoing. In [facility] transfer pending today WBC down from 20 K to 16K Objective Last 24 Hour Vital Signs Date Time Temp Pulse Resp B/P (MAP) Pulse Ox O2 Delivery O2 Flow Rate FiO2 10/16/19 13:03 135/76 10/16/19 12:00 97.9 93 18 135/76 (95) 100 10/16/19 09:28 79 138/78 10/16/19 09:00 Venturi Mask 6.0 Venturi Mask 6.0 10/16/19 08:00 97.2 79 20 138/78 (98) 100 10/16/19 07:28 79 10/16/19 07:03 138/94 10/16/19 04:00 79 10/16/19 04:00 97.3 77 19 130/74 (92) 100 10/16/19 01:51 130/94 10/16/19 01:24 93 20 100 Venturi Mask 6.0 35 94 20 97 10/16/19 00:00 70 10/16/19 00:00 97.1 83 18 129/82 (98) 99 10/15/19 21:00 Venturi Mask 6.0 Venturi Mask 6.0 10/15/19 20:00 92 10/15/19 20:00 96.7 87 18 127/98 (108) 97 10/15/19 19:51 96 Venturi Mask 6.0 35 10/15/19 19:48 91 20 100 Venturi Mask 6.0 35 88 20 96 10/15/19 16:00 98.1 102 20 127/75 (92) 93 10/15/19 16:00 98 10/15/19 14:02 90 20 100 Venturi Mask 6.0 35 95 20 99 10/15/19 14:00 112/65 Intake and Output 10/15/19 10/16/19 19:00 07:00 Output Total 1100 ml Balance -1100 ml Output Urine Total 1100 ml # Voids 2 # Bowel Movements 2 1 Laboratory Tests Test 10/16/19 06:20 White Blood Count 16.0 K/UL (4.8-10.8) H Red Blood Count 3.32 M/UL (4.70-6.10) L Hemoglobin 10.8 G/DL (14.2-18.0) L Hematocrit 32.2 % (42.0-52.0) L Mean Corpuscular Volume 97 FL (80-99) Mean Corpuscular Hemoglobin 32.5 PG (27.0-31.0) H Mean Corpuscular Hemoglobin Concent 33.5 G/DL (32.0-36.0) Red Cell Distribution Width 14.3 % (11.6-14.8) Platelet Count 479 K/UL (150-450) H Mean Platelet Volume 6.1 FL (6.5-10.1) L Neutrophils (%) (Auto) 78.7 % (45.0-75.0) H Lymphocytes (%) (Auto) 13.1 % (20.0-45.0) L Monocytes (%) (Auto) 7.3 % (1.0-10.0) Eosinophils (%) (Auto) 0.0 % (0.0-3.0) Basophils (%) (Auto) 0.9 % (0.0-2.0) Sodium Level 143 MMOL/L (136-145) Potassium Level 4.3 MMOL/L (3.5-5.1) Chloride Level 105 MMOL/L (98-107) Carbon Dioxide Level 32 MMOL/L (21-32) Anion Gap 6 mmol/L (5-15) Blood Urea Nitrogen 25 mg/dL (7-18) H Creatinine 0.8 MG/DL (0.55-1.30) Estimat Glomerular Filtration Rate > 60 mL/min (>60) Glucose Level 112 MG/DL (74-106) H Uric Acid 4.0 MG/DL (2.6-7.2) Calcium Level 10.0 MG/DL (8.5-10.1) Phosphorus Level 2.8 MG/DL (2.5-4.9) Magnesium Level 2.2 MG/DL (1.8-2.4) Total Bilirubin 0.2 MG/DL (0.2-1.0) Gamma Glutamyl Transpeptidase 1130 U/L (5-85) H Aspartate Amino Transf (AST/SGOT) 77 U/L (15-37) H Alanine Aminotransferase (ALT/SGPT) 76 U/L (12-78) Alkaline Phosphatase 370 U/L (46-116) H Total Creatine Kinase 23 U/L (26-308) L Troponin I 0.017 ng/mL (0.000-0.056) C-Reactive Protein, Quantitative 1.5 mg/dL (0.00-0.90) H Pro-B-Type Natriuretic Peptide 309 pg/mL (0-125) H Total Protein 8.8 G/DL (6.4-8.2) H Albumin 2.9 G/DL (3.4-5.0) L Globulin 5.9 g/dL Albumin/Globulin Ratio 0.5 (1.0-2.7) L Phenytoin (Dilantin) Level 9.0 ug/mL (10-20) L Microbiology Date/Time Source Procedure Growth Status 10/13/19 18:46 Blood Blood Culture - Preliminary NO GROWTH AFTER 48 HOURS Resulted 10/13/19 18:40 Blood Blood Culture - Preliminary NO GROWTH AFTER 48 HOURS Resulted 10/13/19 18:29 Indwelling Cath Urine Culture - Preliminary Acinetobacter Baumanii - Mdr Resulted Objective HEAD AND NECK: No JVD. LUNGS: Coarse rhonchi. CARDIOVASCULAR: Regular S1 and S2 with no gallop. ABDOMEN: Status post G-tube. EXTREMITIES: No pitting edema. Sajan Campbell MD October 16, 2019 13:19
[2019-10-16] MEDS: Polymyxin B Sulfate 250,000 UNITS in D5W 275 ML IV SCH (13:36)
--- NOTE | 2019-10-16 14:14 | Hematology/Onc Progress Note ---
Assessment/Plan Assessment/Plan # Leukocytosis on admission, rule out covid, given snf hx of multiple covid patinets, with pna noted on imaging --> may be due to infection --> per id --> wbc 28-->11.6-->12.1-->18->19->12.8-->13->20->16 ==> on steriods --> smear is noted --> abx cefepime/azithro-->polymyxin -> cefepime/canv # Hypercalcemia r/o malignancy, r/o myeloma, elevated on admission, may be 2/2 dehydration --> Ca 10.7-->9.9 --> pth is wnl, spep is also wnl as is upep --> on iv fluids as per pcp --> renal eval prn --> pth on prior admission was 42 # Multiple lung nodules -- in 2017 2 cm pleural-based masslike opacity containing multiple nodular calcifications andadjacent parenchymal linear density persists in the anterolateral periphery of thelateral segment right middle lobe, unchanged. Adjacent small nodular parenchymaldensities persist, unchanged. --> pulm aware --> consider ct chest once better --> Dr. 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 Subjective Constitutional: Denies: no symptoms, chills, fever, malaise, weakness, other HEENT: Denies: no symptoms, eye pain, blurred vision, tearing, double vision, ear pain, ear discharge, nose pain, nose congestion, throat pain, throat swelling, mouth pain, mouth swelling, other Cardiovascular: Denies: no symptoms, chest pain, edema, irregular heart rate, lightheadedness, palpitations, syncope, other Gastrointestinal/Abdominal: Denies: no symptoms, abdomen distended, abdominal pain, black stools, tarry stools, blood in stool, constipated, diarrhea, difficulty swallowing, nausea, poor appetite, poor fluid intake, rectal bleeding , vomiting, other Genitourinary: Denies: no symptoms, burning, discharge, frequency, flank pain, hematuria, incontinence, pain, urgency, other Endocrine: Denies: no symptoms, excessive sweating, flushing, intolerance to cold, intolerance to heat, increased hunger, increased thirst, increased urine, unexplained weight gain, unexplained weight loss, other Hematologic/Lymphatic: Denies: no symptoms, anemia, easy bleeding, easy bruising, adenopathy, other Allergies: Coded Allergies: PNEUMOCOCCAL VACCINE (Unverified Allergy, Unknown, 10/07/18) Uncoded Allergies: PNA VACCINE (Allergy, Unknown, 09/30/19) Subjective 10/01 nonverbal, confused, to be npo, tube feeds on hold, no bleeding, meds reviewed 10/02 remains nonverbal, on gtube feeds, labs noted, no bleeding 10/04 labs reviewed, on polymyxin, cont sq heparin q8 hrs, nc 2l, 10/05 labs still pending, gtube feeds ongoing, no bleeding 10/06 remains confused, with glucerna running, labs reviewed, 99.7f overnight 10/07 labs reviewed, no bleeding, on glucerna, no fc 10/08 nonverbal, with gtube, working, nonfunctional, labs ordered 10/09 no bleeding, no night sweats, no major changes, no fc 10/11 labs are noted, no bleeding or chills, meds reviewed 10/12 no bleeding, remains confused, no night sweats, meds noted 10/13 labs reviewed, no bleeding or night sweats, meds noted, wbc higher 10/14 tele, cxr unchanged, iv abx, on steroids, r arm joseph duplex no dvt 10/15 labs are noted, for dc to ngoc, no bleeding, meds reviewed Objective Objective Current Medications Medications (Trade) Dose Ordered Sig/Nidhi Route PRN Reason Start Time Stop Time Status Last Admin Dose Admin Acetaminophen (Tylenol) 650 mg Q4H PRN GT Pain/Temp >100.5 10/01/19 03:30 10/30/19 23:29 10/13/19 14:52 Albuterol Sulfate (Proventil) 2.5 mg Q6HRT HHN 10/14/19 13:00 10/18/19 15:59 10/16/19 13:24 Amlodipine Besylate (Norvasc) 10 mg DAILY GT 10/16/19 09:00 10/31/19 08:59 10/16/19 09:28 Ascorbic Acid (Vitamin C) 250 mg BID GT 10/01/19 09:00 10/31/19 08:59 10/16/19 09:26 Calcitonin [place] (Miacalcin) 1 sprays DAILY NASAL 10/17/19 09:00 01/15/20 08:59 Clonidine HCl (Catapres Tab) 0.1 mg Q4H PRN GT bp over 170 syst 10/15/19 12:15 01/13/20 12:14 Clonidine HCl (Catapres Tab) 0.1 mg Q8HR GT 10/15/19 14:00 12/30/19 00:00 10/16/19 13:03 Dextrose (Dextrose 50%) 25 ml Q30M PRN IV Hypoglycemia 09/30/19 22:00 12/29/19 21:59 Dextrose (Dextrose 50%) 50 ml Q30M PRN IV Hypoglycemia 09/30/19 22:00 12/29/19 21:59 Docusate Sodium (Colace) 100 mg TID GT 10/15/19 13:00 10/31/19 08:59 10/16/19 12:50 Donepezil HCl (Aricept) 5 mg BEDTIME GT 10/01/19 21:00 10/31/19 20:59 10/16/19 01:37 Heparin Sodium (Porcine) (Heparin 5000 units/ml) 5,000 units EVERY 8 HOURS SUBQ 10/01/19 06:00 11/15/19 05:59 10/16/19 13:04 Insulin Aspart (NovoLOG) BEFORE MEALS AND HS SUBQ 09/30/19 21:51 12/29/19 21:50 10/14/19 21:00 Lansoprazole (Prevacid) 30 mg BID GT 10/15/19 12:15 11/14/19 12:14 10/16/19 09:29 Levetiracetam (Keppra) 500 mg Q12HR GT 10/01/19 09:00 11/15/19 08:59 10/16/19 09:26 Magnesium Hydroxide (Mom) 30 ml DAILY GT 10/01/19 09:00 10/31/19 08:59 10/16/19 09:26 Methylprednisolone Sodium Succinate (Solu-MEDROL) 40 mg EVERY 6 HOURS IVP 10/13/19 16:00 01/11/20 15:59 10/16/19 12:50 Metoclopramide HCl (Reglan) 5 mg Q6H PRN IVP Nausea & Vomiting 10/02/19 09:45 11/01/19 09:44 Multivitamins (Multivitamins) 1 tab DAILY GT 10/01/19 09:00 10/31/19 08:59 10/16/19 09:28 Phenytoin (Dilantin) 300 mg QHS GT 10/15/19 21:00 11/15/19 08:59 10/16/19 01:47 Polymyxin B Sulfate 627239 units/Dextrose 275 ml @ 275 mls/hr Q12H IV 10/16/19 14:00 10/23/19 13:59 10/16/19 13:36 Sennosides (Senokot) 8.6 mg DAILY GT 10/01/19 09:00 10/31/19 08:59 10/16/19 09:28 Last 24 Hour Vital Signs Date Time Temp Pulse Resp B/P (MAP) Pulse Ox O2 Delivery O2 Flow Rate FiO2 10/16/19 13:24 94 20 98 Venturi Mask 6.0 35 94 19 95 10/16/19 13:03 135/76 10/16/19 12:00 97.9 93 18 135/76 (95) 100 10/16/19 11:36 91 10/16/19 11:15 86 20 100 Venturi Mask 6.0 35 10/16/19 11:15 100 Venturi Mask 6.0 35 10/16/19 09:28 79 138/78 10/16/19 09:00 Venturi Mask 6.0 Venturi Mask 6.0 10/16/19 08:00 97.2 79 20 138/78 (98) 100 10/16/19 07:28 79 10/16/19 07:03 138/94 10/16/19 04:00 79 10/16/19 04:00 97.3 77 19 130/74 (92) 100 10/16/19 01:51 130/94 10/16/19 01:24 93 20 100 Venturi Mask 6.0 35 94 20 97 10/16/19 00:00 70 10/16/19 00:00 97.1 83 18 129/82 (98) 99 10/15/19 21:00 Venturi Mask 6.0 Venturi Mask 6.0 10/15/19 20:00 92 10/15/19 20:00 96.7 87 18 127/98 (108) 97 10/15/19 19:51 96 Venturi Mask 6.0 35 10/15/19 19:48 91 20 100 Venturi Mask 6.0 35 88 20 96 10/15/19 16:00 98.1 102 20 127/75 (92) 93 10/15/19 16:00 98 10/15/19 14:02 90 20 100 Venturi Mask 6.0 35 95 20 99 10/15/19 14:00 112/65 10/15/19 12:00 110 10/15/19 12:00 98.8 113 20 112/65 (81) 95 10/15/19 09:14 104 143/84 10/15/19 09:13 143/84 10/15/19 09:00 Venturi Mask 6.0 Venturi Mask 6.0 10/15/19 08:04 93 20 100 Venturi Mask 6.0 35 98 20 99 10/15/19 08:00 89 20 100 Venturi Mask 6.0 35 88 20 98 10/15/19 08:00 101 10/15/19 08:00 98.2 104 20 143/84 (103) 98 10/15/19 07:59 100 Venturi Mask 6.0 35 10/15/19 04:00 97.6 88 18 115/66 (82) 100 10/15/19 04:00 96 10/15/19 01:21 74 20 98 Venturi Mask 6.0 35 10/15/19 01:09 68 20 95 Venturi Mask 6.0 35 10/15/19 00:00 97.4 82 17 115/66 (82) 100 10/15/19 00:00 76 10/14/19 21:00 Venturi Mask 6.0 Venturi Mask 6.0 10/14/19 20:20 77 18 100 Venturi Mask 6.0 35 10/14/19 20:10 80 18 98 Venturi Mask 6.0 35 10/14/19 20:10 98 Venturi Mask 6.0 35 10/14/19 20:00 97.3 76 18 132/63 (86) 100 10/14/19 20:00 69 10/14/19 17:29 131/75 10/14/19 17:27 95 131/75 (93) 10/14/19 16:00 97.7 83 20 111/58 (75) 98 10/14/19 16:00 84 Intake and Output 10/15/19 10/16/19 19:00 07:00 Output Total 1100 ml Balance -1100 ml Output Urine Total 1100 ml # Voids 2 # Bowel Movements 2 1 Labs Test 10/13/19 18:29 10/14/19 04:05 10/15/19 10:25 10/16/19 06:20 Urine Color Red Urine Appearance Very cloudy Urine pH 8 (4.5-8.0) Urine Specific [place] 1.010 (1.005-1.035) Urine Protein 3+ (NEGATIVE) Urine Glucose (UA) Negative (NEGATIVE) Urine Ketones Negative (NEGATIVE) Urine Blood 5+ (NEGATIVE) Urine Nitrite Negative (NEGATIVE) Urine Bilirubin Negative (NEGATIVE) Urine Urobilinogen Normal MG/DL (0.0-1.0) Urine Leukocyte Esterase 1+ (NEGATIVE) Urine RBC Tntc /HPF (0 - 0) Urine WBC 0-2 /HPF (0 - 0) Urine Squamous Epithelial Cells None /LPF (NONE/OCC) Urine Bacteria Occasional /HPF (NONE) White Blood Count 20.4 K/UL (4.8-10.8) 16.0 K/UL (4.8-10.8) Red Blood Count 3.41 M/UL (4.70-6.10) 3.32 M/UL (4.70-6.10) Hemoglobin 11.3 G/DL (14.2-18.0) 10.8 G/DL (14.2-18.0) Hematocrit 32.9 % (42.0-52.0) 32.2 % (42.0-52.0) Mean Corpuscular Volume 96 FL (80-99) 97 FL (80-99) Mean Corpuscular Hemoglobin 33.0 PG (27.0-31.0) 32.5 PG (27.0-31.0) Mean Corpuscular Hemoglobin Concent 34.2 G/DL (32.0-36.0) 33.5 G/DL (32.0-36.0) Red Cell Distribution Width 13.9 % (11.6-14.8) 14.3 % (11.6-14.8) Platelet Count 527 K/UL (150-450) 479 K/UL (150-450) Mean Platelet Volume 5.9 FL (6.5-10.1) 6.1 FL (6.5-10.1) Neutrophils (%) (Auto) % (45.0-75.0) 78.7 % (45.0-75.0) Lymphocytes (%) (Auto) % (20.0-45.0) 13.1 % (20.0-45.0) Monocytes (%) (Auto) % (1.0-10.0) 7.3 % (1.0-10.0) Eosinophils (%) (Auto) % (0.0-3.0) 0.0 % (0.0-3.0) Basophils (%) (Auto) % (0.0-2.0) 0.9 % (0.0-2.0) Differential Total Cells Counted 100 Neutrophils % (Manual) 83 % (45-75) Lymphocytes % (Manual) 14 % (20-45) Monocytes % (Manual) 0 % (1-10) Eosinophils % (Manual) 0 % (0-3) Basophils % (Manual) 0 % (0-2) Band Neutrophils 3 % (0-8) Nucleated Red Blood Cells 1 /100 WBC Platelet Estimate Increased Platelet Morphology Normal Red Blood Cell Morphology Normal Erythrocyte Sedimentation Rate 100 MM/HR (0-20) Sodium Level 143 MMOL/L (136-145) 143 MMOL/L (136-145) Potassium Level 4.6 MMOL/L (3.5-5.1) 4.3 MMOL/L (3.5-5.1) Chloride Level 104 MMOL/L (98-107) 105 MMOL/L (98-107) Carbon Dioxide Level 32 MMOL/L (21-32) 32 MMOL/L (21-32) Anion Gap 7 mmol/L (5-15) 6 mmol/L (5-15) Blood Urea Nitrogen 24 mg/dL (7-18) 25 mg/dL (7-18) Creatinine 0.9 MG/DL (0.55-1.30) 0.8 MG/DL (0.55-1.30) Estimat Glomerular Filtration Rate > 60 mL/min (>60) > 60 mL/min (>60) Glucose Level 139 MG/DL (74-106) 112 MG/DL (74-106) Calcium Level 10.5 MG/DL (8.5-10.1) 10.0 MG/DL (8.5-10.1) Total Bilirubin 0.3 MG/DL (0.2-1.0) 0.2 MG/DL (0.2-1.0) Aspartate Amino Transf (AST/SGOT) 64 U/L (15-37) 77 U/L (15-37) Alanine Aminotransferase (ALT/SGPT) 58 U/L (12-78) 76 U/L (12-78) Alkaline Phosphatase 438 U/L (46-116) 370 U/L (46-116) C-Reactive Protein, Quantitative 6.6 mg/dL (0.00-0.90) 1.5 mg/dL (0.00-0.90) Total Protein 9.3 G/DL (6.4-8.2) 8.8 G/DL (6.4-8.2) Albumin 2.8 G/DL (3.4-5.0) 2.9 G/DL (3.4-5.0) Globulin 6.5 g/dL 5.9 g/dL Albumin/Globulin Ratio 0.4 (1.0-2.7) 0.5 (1.0-2.7) Vancomycin Level Trough 17.2 ug/mL (5.0-12.0) Phosphorus Level 3.2 MG/DL (2.5-4.9) 2.8 MG/DL (2.5-4.9) Magnesium Level 2.1 MG/DL (1.8-2.4) 2.2 MG/DL (1.8-2.4) Thyroid Stimulating Hormone (TSH) 0.593 uiU/mL (0.358-3.740) Uric Acid 4.0 MG/DL (2.6-7.2) Gamma Glutamyl Transpeptidase 1130 U/L (5-85) Total Creatine Kinase 23 U/L (26-308) Troponin I 0.017 ng/mL (0.000-0.056) Pro-B-Type Natriuretic Peptide 309 pg/mL (0-125) Phenytoin (Dilantin) Level 9.0 ug/mL (10-20) Height (Feet): 6 Height (Inches): 0.00 Weight (Pounds): 186 Objective vitals: noted gen: nonverbal pulm: ctab, some crackles left side, v mask++ heent; nc, at, eomi Cv: rrr, no mgr abd: soft, nt, nd +gtube ext: no cce Ignacio Ponce MD October 16, 2019 14:14
[2019-10-16 16:00] VITALS: BP 151/66
--- NOTE | 2019-10-16 19:30 | Surgery Progress Note ---
Surgery Progress Note Subjective Additional Comments no acute events pending placement dressings going well precautions inp lace Objective Last 24 Hour Vital Signs Date Time Temp Pulse Resp B/P (MAP) Pulse Ox O2 Delivery O2 Flow Rate FiO2 10/16/19 16:00 97.6 89 20 151/66 (94) 95 10/16/19 15:40 92 10/16/19 13:24 94 20 98 Venturi Mask 6.0 35 94 19 95 10/16/19 13:03 135/76 10/16/19 12:00 97.9 93 18 135/76 (95) 100 10/16/19 11:36 91 10/16/19 11:15 86 20 100 Venturi Mask 6.0 35 10/16/19 11:15 100 Venturi Mask 6.0 35 10/16/19 09:28 79 138/78 10/16/19 09:00 Venturi Mask 6.0 Venturi Mask 6.0 10/16/19 08:00 97.2 79 20 138/78 (98) 100 10/16/19 07:28 79 10/16/19 07:03 138/94 10/16/19 04:00 79 10/16/19 04:00 97.3 77 19 130/74 (92) 100 10/16/19 01:51 130/94 10/16/19 01:24 93 20 100 Venturi Mask 6.0 35 94 20 97 10/16/19 00:00 70 10/16/19 00:00 97.1 83 18 129/82 (98) 99 10/15/19 21:00 Venturi Mask 6.0 Venturi Mask 6.0 10/15/19 20:00 92 10/15/19 20:00 96.7 87 18 127/98 (108) 97 10/15/19 19:51 96 Venturi Mask 6.0 35 10/15/19 19:48 91 20 100 Venturi Mask 6.0 35 88 20 96 I&O Intake and Output 10/15/19 10/16/19 19:00 07:00 Intake Total 50 ml Output Total 1100 ml Balance -1100 ml 50 ml Tube Feeding 50 ml Output Urine Total 1100 ml # Voids 2 # Bowel Movements 2 1 Dressing: saturated Wound: other Drains: other Cardiovascular: RSR Respiratory: decreased breath sounds Abdomen: soft, present bowel sounds, non-distended Extremities: no cyanosis, pulses, other Laboratory Tests Test 10/16/19 06:20 White Blood Count 16.0 K/UL (4.8-10.8) H Red Blood Count 3.32 M/UL (4.70-6.10) L Hemoglobin 10.8 G/DL (14.2-18.0) L Hematocrit 32.2 % (42.0-52.0) L Mean Corpuscular Volume 97 FL (80-99) Mean Corpuscular Hemoglobin 32.5 PG (27.0-31.0) H Mean Corpuscular Hemoglobin Concent 33.5 G/DL (32.0-36.0) Red Cell Distribution Width 14.3 % (11.6-14.8) Platelet Count 479 K/UL (150-450) H Mean Platelet Volume 6.1 FL (6.5-10.1) L Neutrophils (%) (Auto) 78.7 % (45.0-75.0) H Lymphocytes (%) (Auto) 13.1 % (20.0-45.0) L Monocytes (%) (Auto) 7.3 % (1.0-10.0) Eosinophils (%) (Auto) 0.0 % (0.0-3.0) Basophils (%) (Auto) 0.9 % (0.0-2.0) Sodium Level 143 MMOL/L (136-145) Potassium Level 4.3 MMOL/L (3.5-5.1) Chloride Level 105 MMOL/L (98-107) Carbon Dioxide Level 32 MMOL/L (21-32) Anion Gap 6 mmol/L (5-15) Blood Urea Nitrogen 25 mg/dL (7-18) H Creatinine 0.8 MG/DL (0.55-1.30) Estimat Glomerular Filtration Rate > 60 mL/min (>60) Glucose Level 112 MG/DL (74-106) H Uric Acid 4.0 MG/DL (2.6-7.2) Calcium Level 10.0 MG/DL (8.5-10.1) Phosphorus Level 2.8 MG/DL (2.5-4.9) Magnesium Level 2.2 MG/DL (1.8-2.4) Total Bilirubin 0.2 MG/DL (0.2-1.0) Gamma Glutamyl Transpeptidase 1130 U/L (5-85) H Aspartate Amino Transf (AST/SGOT) 77 U/L (15-37) H Alanine Aminotransferase (ALT/SGPT) 76 U/L (12-78) Alkaline Phosphatase 370 U/L (46-116) H Total Creatine Kinase 23 U/L (26-308) L Troponin I 0.017 ng/mL (0.000-0.056) C-Reactive Protein, Quantitative 1.5 mg/dL (0.00-0.90) H Pro-B-Type Natriuretic Peptide 309 pg/mL (0-125) H Total Protein 8.8 G/DL (6.4-8.2) H Albumin 2.9 G/DL (3.4-5.0) L Globulin 5.9 g/dL Albumin/Globulin Ratio 0.5 (1.0-2.7) L Phenytoin (Dilantin) Level 9.0 ug/mL (10-20) L Plan Problems: (1) Decubitus skin ulcer Assessment & Plan: Pt presented on admission with multiple pressure injuries. Resolving pressure injury cleft of R ear. Vale epithelial at base of wound with marginal erythema. Non-blanching erythema cleft of L ear. Pt is receiving o2 via nasal cannula, and oxygen tubing padded with gauze to minimize pressure and friction to both ears. Unstageable Sacral Pressure Injury(L)9.4cm x (W)7.8cm. Base of wound is 75% necrotic and and soft, 20% surrounding slough,Marginal erythema and macerated borders. Mild odor noted. Small amt seropurulent exudate.Periwound,skin tone is darker without elevation in skin temp, fluctuance or induration.small area of hyperpigmentation noted to L gluteal cheek. L Heel extending into plantar aspect is boggy with non-blanching erythema. Non-blanching erythema R heel without induration or fluctuance. Xerosis skin both feet. stable with great nursing care d/c planning Tx.Plan: Cleanse Sacral wound with Saline. Apply Therahoney. Apply Moisture Barrier Paste periwound. Cover with Optifoam Drsg. Change every 3 days and prn. Apply Moisture Barrier paste to Perineum, R and L buttocks with each incontinence care. Apply Cavilon Skin Barrier to both heels. Cover each heel with Optifoam drsg. Change every 7 days and prn. Apply Cavilon Skin Barrier to clefts of both R and L ears Daily. Pad Oxygen tubing with gauze around Ears. Keep Oxygen tubing loose around Ears. Reposition at least every 2hours or as tolerated. Off-load heels with pillow. APM/CHRISTOPHER Mattress overlay. (2) Leukocytosis Assessment & Plan: leukocytosis 28k on admission trending down resolving wbc on abx wounds unlikely etiology pna ua noted cont abx as per id wbc 12k trending up again imaging reviewed abx changed per Id will follow with recs wbc trending up - likely steroid related otherwise stable cxr with v Apparently increased hazy airspace opacity on background of generalized mild interstitial disease. May be an artifact of under distention but could reflect worsening bilateral infiltrates. Stable bibasilar atelectasis and right basilar consolidation thank you US On the right, grayscale and duplex images demonstrate no evidence of intraluminal thrombus. Normal phasic Doppler waveforms. Patent upstream internal jugular and subclavian veins. Normal compressibility. The cephalic vein is very small. Impression: Negative for upper extremity venous thrombosis (3) Lung mass (4) Protein-calorie malnutrition, severe Assessment & Plan: There is a gastrostomy tube in place. Previously demonstrated nasogastric tube is no longer evident. Bowel gas pattern is unremarkable. No masses or unusual calcifications. There is evidence of a Macedo catheter. There is a right hip prosthesis. There are degenerative changes of the lumbar spine nutritional optimization tube feeds bmi noted alb low cont with feeds DAILY ESTIMATED NEEDS: Needs based on Pulmonary, wounds; 72.5kg 25-30 kcals/kg 3447-6576 total kcals 1.25-1.5 g protein/kg 90-108 g total protein 25-30 mL/kg 8888-7952 total fluid mLs NUTRITION DIAGNOSIS: 1. Increased pro needs r/t wound healing as evidenced by pt adm w/ multiple wounds including unstageable sacral wound, refer to WC eval. 2. Swallowing difficulty r/t dysphagia as evidenced by GT dependent. CURRENT TF:Glucerna 1.5 @ 50ml/hr x 22 hrs (on Dilantin QD) ENTERAL NUTRITION RECOMMENDATIONS: Glucerna 1.5 @55ml/hr x22 hrs (1 hr held before and after Dilantin med) to provide 1210ml, 1815kcal, 100g prot, 918ml free water - Increase goal rate to 55ml/hr to meet 100% est kcal/prot needs - Hold 1 hr before and after Dilantin med - HOB over 30 degrees ADDITIONAL RECOMMENDATIONS: * Wound healing: continue Vit C add KESHIA in 4oz H2O BID via GT * Calibrated bedscale wt for accurate CBW * Check lytes daily w/ TF, replete as needed * Monitor TF tolerance/residuals * DC D5 once TF @ goal (5) Suspected COVID-19 virus infection Assessment & Plan: covid negative x3 so far respiratory improved Right basilar consolidation and atelectasis, could indicate pneumonia. Minimal left basilar atelectasis Gabino Little October 16, 2019 19:30
[2019-10-16 20:00] VITALS: BP 136/82
--- NOTE | 2019-10-16 21:11 | General Progress Note ---
Assessment/Plan Problem List: (1) Fever ICD Codes: R50.9 - Fever, unspecified SNOMED: 253804519 (2) COPD (chronic obstructive pulmonary disease) ICD Codes: J44.9 - Chronic obstructive pulmonary disease, unspecified SNOMED: 93757031 (3) Severe sepsis ICD Codes: A41.9 - Sepsis, unspecified organism; R65.20 - Severe sepsis without septic shock SNOMED: 24887528 (4) PEG (percutaneous endoscopic gastrostomy) adjustment/replacement/removal ICD Codes: Z43.1 - Encounter for attention to gastrostomy SNOMED: 434126678, 825448998 (5) Protein-calorie malnutrition, severe ICD Codes: E43 - Unspecified severe protein-calorie malnutrition SNOMED: 774872354 (6) Acute febrile illness ICD Codes: R50.9 - Fever, unspecified SNOMED: 850708165 (7) PNA (pneumonia) ICD Codes: J18.9 - Pneumonia, unspecified organism SNOMED: 707105506 (8) Suspected COVID-19 virus infection ICD Codes: Z20.828 - Contact with and (suspected) exposure to other viral communicable diseases SNOMED: 597254095 (9) Congestion secondary to upper respiratory illness Status: progressing, unchanged Assessment/Plan: ngoc transfer wbc is traneding down cellulitis of UE MDR SEPSIS repeat covid is negative positive blood cx pna malnutrition improving leukocytosis Subjective ROS Limited/Unobtainable: Yes Allergies: Coded Allergies: PNEUMOCOCCAL VACCINE (Unverified Allergy, Unknown, 10/07/18) Uncoded Allergies: PNA VACCINE (Allergy, Unknown, 09/30/19) Objective Last 24 Hour Vital Signs Date Time Temp Pulse Resp B/P (MAP) Pulse Ox O2 Delivery O2 Flow Rate FiO2 10/16/19 19:26 96 Venturi Mask 6.0 35 10/16/19 19:26 91 21 98 Venturi Mask 6.0 35 91 18 96 10/16/19 16:00 97.6 89 20 151/66 (94) 95 10/16/19 15:40 92 10/16/19 13:24 94 20 98 Venturi Mask 6.0 35 94 19 95 10/16/19 13:03 135/76 10/16/19 12:00 97.9 93 18 135/76 (95) 100 10/16/19 11:36 91 10/16/19 11:15 86 20 100 Venturi Mask 6.0 35 10/16/19 11:15 100 Venturi Mask 6.0 35 10/16/19 09:28 79 138/78 10/16/19 09:00 Venturi Mask 6.0 Venturi Mask 6.0 10/16/19 08:00 97.2 79 20 138/78 (98) 100 10/16/19 07:28 79 10/16/19 07:03 138/94 10/16/19 04:00 79 10/16/19 04:00 97.3 77 19 130/74 (92) 100 10/16/19 01:51 130/94 10/16/19 01:24 93 20 100 Venturi Mask 6.0 35 94 20 97 10/16/19 00:00 70 10/16/19 00:00 97.1 83 18 129/82 (98) 99 Intake and Output 10/15/19 10/16/19 19:00 07:00 Intake Total 50 ml Output Total 1100 ml Balance -1100 ml 50 ml Tube Feeding 50 ml Output Urine Total 1100 ml # Voids 2 # Bowel Movements 2 1 Laboratory Tests 10/16/19 06:20: White Blood Count 16.0H, Red Blood Count 3.32L, Hemoglobin 10.8L, Hematocrit 32.2L, Mean Corpuscular Volume 97, Mean Corpuscular Hemoglobin 32.5H, Mean Corpuscular Hemoglobin Concent 33.5, Red Cell Distribution Width 14.3, Platelet Count 479H, Mean Platelet Volume 6.1L, Neutrophils (%) (Auto) 78.7H, Lymphocytes (%) (Auto) 13.1L, Monocytes (%) (Auto) 7.3, Eosinophils (%) (Auto) 0.0, Basophils (%) (Auto) 0.9, Sodium Level 143, Potassium Level 4.3, Chloride Level 105, Carbon Dioxide Level 32, Anion Gap 6, Blood Urea Nitrogen 25H, Creatinine 0.8, Estimat Glomerular Filtration Rate > 60, Glucose Level 112H, Uric Acid 4.0, Calcium Level 10.0, Phosphorus Level 2.8, Magnesium Level 2.2, Total Bilirubin 0.2, Gamma Glutamyl Transpeptidase 1130H, Aspartate Amino Transf (AST/SGOT) 77H, Alanine Aminotransferase (ALT/SGPT) 76, Alkaline Phosphatase 370H, Total Creatine Kinase 23L, Troponin I 0.017, C-Reactive Protein, Quantitative 1.5H, Pro-B-Type Natriuretic Peptide 309H, Total Protein 8.8H, Albumin 2.9L, Globulin 5.9, Albumin/Globulin Ratio 0.5L, Phenytoin ( Dilantin) Level 9.0L Height (Feet): 6 Height (Inches): 0.00 Weight (Pounds): 186 Konrad Soares MD October 16, 2019 21:11
[2019-10-17] VITALS: BP 140/68
[2019-10-17] MEDS: Solu-MEDROL 40mg Inj IVP SCH ×4 (00:02→18:00)
[2019-10-17] MEDS: Albuterol ud Inhalation HHN SCH ×3 (00:45→13:00)
[2019-10-17] MEDS: Polymyxin B Sulfate 250,000 UNITS in D5W 275 ML IV SCH ×2 (02:03→13:47)
[2019-10-17 04:00] VITALS: BP 145/87
[2019-10-17] MEDS: Heparin 5000 units/ml inj SUBQ SCH ×2 (05:46→13:05)
[2019-10-17] MEDS: NovoLOG Insulin Flexpen SUBQ SCH ×3 (05:51→17:04)
[2019-10-17 07:29] LABS: ALANINE AMINOTRANSFERASE 95 U/L (12-78); ALBUMIN 2.9 G/DL (3.4-5.0); ALBUMIN/GLOBULIN RATIO 0.5 (1.0-2.7); ALKALINE PHOSPHATASE 394 U/L (46-116); ANION GAP 7 mmol/L (5-15); ASPARTATE AMINO TRANSFERASE 98 U/L (15-37); BILIRUBIN,TOTAL 0.2 MG/DL (0.2-1.0); BLOOD UREA NITROGEN 24 mg/dL (7-18); CALCIUM 9.8 MG/DL (8.5-10.1); CARBON DIOXIDE 32 MMOL/L (21-32); CHLORIDE 101 MMOL/L (98-107); CREATININE 0.7 MG/DL (0.55-1.30); PHOSPHORUS 3.2 MG/DL (2.5-4.9); POTASSIUM 4.6 MMOL/L (3.5-5.1); SODIUM 140 MMOL/L (136-145)
[2019-10-17 07:37] LABS: HEMATOCRIT 34.3 % (42.0-52.0); HEMOGLOBIN 11.5 G/DL (14.2-18.0); LYMPHOCYTES % (AUTO) 21.2 % (20.0-45.0); MEAN CORPUSCULAR VOLUME 98 FL (80-99); MONOCYTES % (AUTO) 6.6 % (1.0-10.0); NEUTROPHILS % (AUTO) 71.1 % (45.0-75.0); PLATELET COUNT 460 K/UL (150-450); RED BLOOD COUNT 3.52 M/UL (4.70-6.10); RED CELL DISTRIBUTION WIDTH 14.1 % (11.6-14.8); WHITE BLOOD COUNT 15.2 K/UL (4.8-10.8)
[2019-10-17 08:00] VITALS: BP 138/72
[2019-10-17] MEDS: Sennosides 8.6mg tab GT SCH (09:22)
[2019-10-17] MEDS: Milk of Magnesia 30ml Ud GT SCH (09:23)
[2019-10-17] MEDS: levETIRAcetam 500mg/5ml Liquid GT SCH (09:23)
[2019-10-17] MEDS: Ascorbic Acid 500mg tab GT SCH ×2 (09:23→18:00)
[2019-10-17] MEDS: Docusate 100mg/10ml Liq GT SCH ×3 (09:23→18:00)
--- NOTE | 2019-10-17 09:28 | General Progress Note ---
Assessment/Plan Status: progressing, unchanged Assessment/Plan: 1. Hypertension. 2. Diabetes. 3. COPD. 4. History of pacemaker placement. 5. Dementia. 6. gastroparesis reglan GTF GT flushes repeat labs pending dc will fu Subjective ROS Limited/Unobtainable: No Allergies: Coded Allergies: PNEUMOCOCCAL VACCINE (Unverified Allergy, Unknown, 10/07/18) Uncoded Allergies: PNA VACCINE (Allergy, Unknown, 09/30/19) Objective Last 24 Hour Vital Signs Date Time Temp Pulse Resp B/P (MAP) Pulse Ox O2 Delivery O2 Flow Rate FiO2 10/17/19 09:22 76 138/72 10/17/19 08:36 96 Venturi Mask 8.0 40 10/17/19 05:39 145/87 10/17/19 04:00 98.0 88 19 145/87 (106) 98 10/17/19 04:00 85 10/17/19 00:45 87 20 98 Venturi Mask 6.0 35 89 19 97 10/17/19 00:00 69 10/17/19 00:00 97.6 83 19 140/68 (92) 100 10/16/19 22:12 136/82 10/16/19 21:00 Venturi Mask 6.0 Venturi Mask 6.0 10/16/19 20:00 97.9 86 19 136/82 (100) 100 10/16/19 20:00 88 10/16/19 19:26 96 Venturi Mask 6.0 35 10/16/19 19:26 91 21 98 Venturi Mask 6.0 35 91 18 96 10/16/19 16:00 97.6 89 20 151/66 (94) 95 10/16/19 15:40 92 10/16/19 13:24 94 20 98 Venturi Mask 6.0 35 94 19 95 10/16/19 13:03 135/76 10/16/19 12:00 97.9 93 18 135/76 (95) 100 10/16/19 11:36 91 10/16/19 11:15 86 20 100 Venturi Mask 6.0 35 10/16/19 11:15 100 Venturi Mask 6.0 35 Intake and Output 10/16/19 10/17/19 19:00 07:00 Intake Total 1130 ml 650 ml Output Total 1200 ml Balance -70 ml 650 ml Intake Free Water 200 ml 200 ml IV Total 330 ml Tube Feeding 600 ml 450 ml Output Urine Total 1200 ml # Bowel Movements 1 Laboratory Tests 10/17/19 05:25: White Blood Count 15.2H, Red Blood Count 3.52L, Hemoglobin 11.5L, Hematocrit 34.3L, Mean Corpuscular Volume 98, Mean Corpuscular Hemoglobin 32.8H, Mean Corpuscular Hemoglobin Concent 33.6, Red Cell Distribution Width 14.1, Platelet Count 460H, Mean Platelet Volume 5.9L, Neutrophils (%) (Auto) 71.1, Lymphocytes (%) (Auto) 21.2, Monocytes (%) (Auto) 6.6, Eosinophils (%) (Auto) 0.0, Basophils (%) (Auto) 1.0, Sodium Level 140, Potassium Level 4.6, Chloride Level 101, Carbon Dioxide Level 32, Anion Gap 7, Blood Urea Nitrogen 24H, Creatinine 0.7, Estimat Glomerular Filtration Rate > 60, Glucose Level 132H, Calcium Level 9.8, Phosphorus Level 3.2, Magnesium Level 2.1, Total Bilirubin 0.2, Aspartate Amino Transf (AST/SGOT) 98H, Alanine Aminotransferase (ALT/SGPT) 95H, Alkaline Phosphatase 394H, Total Protein 8.8H, Albumin 2.9L, Globulin 5.9, Albumin/ Globulin Ratio 0.5L Height (Feet): 6 Height (Inches): 0.00 Weight (Pounds): 186 General Appearance: alert EENT: normal ENT inspection Neck: supple Cardiovascular: normal rate Respiratory/Chest: decreased breath sounds Abdomen: normal bowel sounds, non tender, soft Extremities: non-tender Terence Anton MD October 17, 2019 09:28
[2019-10-17 10:40] VITALS: BP 138/72
--- NOTE | 2019-10-17 10:40 | Infectious Diseases Prog Note ---
Assessment/Plan Assessment/Plan IMPRESSION: 1. MDR Acinetobacter sepsis treated 2. Pneumonia. Negative COVID19 X 3 3. Unstageable pressure ulcer that doesn't seem to be infected . 4. Hypernatremia. 5. Anemia. 6. Advanced dementia. 7. History of diverticulosis. 8. Gastrostomy status. 9. Leukocytosis & fever 10 Phlebitis & cellulitis of R arm 11. MDR Acinetobacter UTI RECOMMENDATION: continue Polymyxin B Agree with transfer to [facility] Subjective ROS Limited/Unobtainable: Yes Constitutional: Denies: fever Allergies: Coded Allergies: PNEUMOCOCCAL VACCINE (Unverified Allergy, Unknown, 10/07/18) Uncoded Allergies: PNA VACCINE (Allergy, Unknown, 09/30/19) Objective Vital Signs Last 24 Hour Vital Signs Date Time Temp Pulse Resp B/P (MAP) Pulse Ox O2 Delivery O2 Flow Rate FiO2 10/17/19 09:22 76 138/72 10/17/19 08:36 96 Venturi Mask 8.0 40 10/17/19 05:39 145/87 10/17/19 04:00 98.0 88 19 145/87 (106) 98 10/17/19 04:00 85 10/17/19 00:45 87 20 98 Venturi Mask 6.0 35 89 19 97 10/17/19 00:00 69 10/17/19 00:00 97.6 83 19 140/68 (92) 100 10/16/19 22:12 136/82 10/16/19 21:00 Venturi Mask 6.0 Venturi Mask 6.0 10/16/19 20:00 97.9 86 19 136/82 (100) 100 10/16/19 20:00 88 10/16/19 19:26 96 Venturi Mask 6.0 35 10/16/19 19:26 91 21 98 Venturi Mask 6.0 35 91 18 96 10/16/19 16:00 97.6 89 20 151/66 (94) 95 10/16/19 15:40 92 10/16/19 13:24 94 20 98 Venturi Mask 6.0 35 94 19 95 10/16/19 13:03 135/76 10/16/19 12:00 97.9 93 18 135/76 (95) 100 10/16/19 11:36 91 10/16/19 11:15 86 20 100 Venturi Mask 6.0 35 10/16/19 11:15 100 Venturi Mask 6.0 35 Height (Feet): 6 Height (Inches): 0.00 Weight (Pounds): 186 HEENT: mucous membranes moist Respiratory/Chest: lungs clear, other - oxygen by mask Abdomen: soft, non tender, other - GT feeding Extremities: no edema Neurologic/Psychiatric: aphasia, other - opens eyes Laboratory Tests Test 10/17/19 05:25 White Blood Count 15.2 K/UL (4.8-10.8) H Red Blood Count 3.52 M/UL (4.70-6.10) L Hemoglobin 11.5 G/DL (14.2-18.0) L Hematocrit 34.3 % (42.0-52.0) L Mean Corpuscular Volume 98 FL (80-99) Mean Corpuscular Hemoglobin 32.8 PG (27.0-31.0) H Mean Corpuscular Hemoglobin Concent 33.6 G/DL (32.0-36.0) Red Cell Distribution Width 14.1 % (11.6-14.8) Platelet Count 460 K/UL (150-450) H Mean Platelet Volume 5.9 FL (6.5-10.1) L Neutrophils (%) (Auto) 71.1 % (45.0-75.0) Lymphocytes (%) (Auto) 21.2 % (20.0-45.0) Monocytes (%) (Auto) 6.6 % (1.0-10.0) Eosinophils (%) (Auto) 0.0 % (0.0-3.0) Basophils (%) (Auto) 1.0 % (0.0-2.0) Sodium Level 140 MMOL/L (136-145) Potassium Level 4.6 MMOL/L (3.5-5.1) Chloride Level 101 MMOL/L (98-107) Carbon Dioxide Level 32 MMOL/L (21-32) Anion Gap 7 mmol/L (5-15) Blood Urea Nitrogen 24 mg/dL (7-18) H Creatinine 0.7 MG/DL (0.55-1.30) Estimat Glomerular Filtration Rate > 60 mL/min (>60) Glucose Level 132 MG/DL (74-106) H Calcium Level 9.8 MG/DL (8.5-10.1) Phosphorus Level 3.2 MG/DL (2.5-4.9) Magnesium Level 2.1 MG/DL (1.8-2.4) Total Bilirubin 0.2 MG/DL (0.2-1.0) Aspartate Amino Transf (AST/SGOT) 98 U/L (15-37) H Alanine Aminotransferase (ALT/SGPT) 95 U/L (12-78) H Alkaline Phosphatase 394 U/L (46-116) H Total Protein 8.8 G/DL (6.4-8.2) H Albumin 2.9 G/DL (3.4-5.0) L Globulin 5.9 g/dL Albumin/Globulin Ratio 0.5 (1.0-2.7) L Current Medications Medications (Trade) Dose Ordered Sig/Nidhi Route PRN Reason Start Time Stop Time Status Last Admin Dose Admin Acetaminophen (Tylenol) 650 mg Q4H PRN GT Pain/Temp >100.5 10/01/19 03:30 10/30/19 23:29 10/13/19 14:52 Albuterol Sulfate (Proventil) 2.5 mg Q6HRT HHN 10/14/19 13:00 10/18/19 15:59 10/17/19 00:45 Amlodipine Besylate (Norvasc) 10 mg DAILY GT 10/16/19 09:00 10/31/19 08:59 10/17/19 09:22 Ascorbic Acid (Vitamin C) 250 mg BID GT 10/01/19 09:00 10/31/19 08:59 10/17/19 09:23 Calcitonin [place] (Miacalcin) 1 sprays DAILY NASAL 10/17/19 09:00 01/15/20 08:59 10/17/19 09:24 Clonidine HCl (Catapres Tab) 0.1 mg Q4H PRN GT bp over 170 syst 10/15/19 12:15 01/13/20 12:14 Clonidine HCl (Catapres Tab) 0.1 mg Q8HR GT 10/15/19 14:00 12/30/19 00:00 10/17/19 05:39 Dextrose (Dextrose 50%) 25 ml Q30M PRN IV Hypoglycemia 09/30/19 22:00 12/29/19 21:59 Dextrose (Dextrose 50%) 50 ml Q30M PRN IV Hypoglycemia 09/30/19 22:00 12/29/19 21:59 Docusate Sodium (Colace) 100 mg TID GT 10/15/19 13:00 10/31/19 08:59 10/17/19 09:23 Donepezil HCl (Aricept) 5 mg BEDTIME GT 10/01/19 21:00 10/31/19 20:59 10/16/19 20:30 Heparin Sodium (Porcine) (Heparin 5000 units/ml) 5,000 units EVERY 8 HOURS SUBQ 10/01/19 06:00 11/15/19 05:59 10/17/19 05:46 Insulin Aspart (NovoLOG) BEFORE MEALS AND HS SUBQ 09/30/19 21:51 12/29/19 21:50 10/17/19 05:51 Lansoprazole (Prevacid) 30 mg BID GT 10/15/19 12:15 11/14/19 12:14 10/17/19 09:22 Levetiracetam (Keppra) 500 mg Q12HR GT 10/01/19 09:00 11/15/19 08:59 10/17/19 09:23 Magnesium Hydroxide (Mom) 30 ml DAILY GT 10/01/19 09:00 10/31/19 08:59 10/17/19 09:23 Methylprednisolone Sodium Succinate (Solu-MEDROL) 40 mg EVERY 6 HOURS IVP 10/13/19 16:00 01/11/20 15:59 10/17/19 05:39 Metoclopramide HCl (Reglan) 5 mg Q6H PRN IVP Nausea & Vomiting 10/02/19 09:45 11/01/19 09:44 Multivitamins (Multivitamins) 1 tab DAILY GT 10/01/19 09:00 10/31/19 08:59 10/17/19 09:22 Phenytoin (Dilantin) 300 mg QHS GT 10/15/19 21:00 11/15/19 08:59 10/16/19 20:30 Polymyxin B Sulfate 280154 units/Dextrose 275 ml @ 275 mls/hr Q12H IV 10/16/19 14:00 10/23/19 13:59 10/17/19 02:03 Sennosides (Senokot) 8.6 mg DAILY GT 10/01/19 09:00 10/31/19 08:59 10/17/19 09:22 Curtis Farah MD October 17, 2019 10:40
--- NOTE | 2019-10-17 11:26 | Pulmonology Progress Note ---
Subjective ROS Limited/Unobtainable: Yes Interval Events: None new, on 6L/min O2 Constitutional: Denies: fever HEENT: Repors: no symptoms Respiratory: Reports: dry cough, shortness of breath Cardiovascular: Reports: no symptoms Gastrointestinal/Abdominal: Reports: no symptoms Allergies: Coded Allergies: PNEUMOCOCCAL VACCINE (Unverified Allergy, Unknown, 10/07/18) Uncoded Allergies: PNA VACCINE (Allergy, Unknown, 09/30/19) All Systems: reviewed and negative except above Objective Last 24 Hour Vital Signs Date Time Temp Pulse Resp B/P (MAP) Pulse Ox O2 Delivery O2 Flow Rate FiO2 10/17/19 10:39 74 10/17/19 09:22 76 138/72 10/17/19 09:00 Venturi Mask 6.0 Venturi Mask 6.0 10/17/19 08:36 96 Venturi Mask 8.0 40 10/17/19 08:00 98.0 74 20 138/72 (94) 97 10/17/19 05:39 145/87 10/17/19 04:00 98.0 88 19 145/87 (106) 98 10/17/19 04:00 85 10/17/19 00:45 87 20 98 Venturi Mask 6.0 35 89 19 97 10/17/19 00:00 69 10/17/19 00:00 97.6 83 19 140/68 (92) 100 10/16/19 22:12 136/82 10/16/19 21:00 Venturi Mask 6.0 Venturi Mask 6.0 10/16/19 20:00 97.9 86 19 136/82 (100) 100 10/16/19 20:00 88 10/16/19 19:26 96 Venturi Mask 6.0 35 10/16/19 19:26 91 21 98 Venturi Mask 6.0 35 91 18 96 10/16/19 16:00 97.6 89 20 151/66 (94) 95 10/16/19 15:40 92 10/16/19 13:24 94 20 98 Venturi Mask 6.0 35 94 19 95 10/16/19 13:03 135/76 10/16/19 12:00 97.9 93 18 135/76 (95) 100 10/16/19 11:36 91 Intake and Output 5/14/20 5/15/20 19:00 07:00 Intake Total 1130 ml 650 ml Output Total 1200 ml Balance -70 ml 650 ml Intake Free Water 200 ml 200 ml IV Total 330 ml Tube Feeding 600 ml 450 ml Output Urine Total 1200 ml # Bowel Movements 1 General Appearance: no acute distress HEENT: mucous membranes moist Respiratory/Chest: chest wall non-tender, decreased breath sounds Cardiovascular: normal peripheral pulses, normal rate Abdomen: soft, non tender, other - GT feeding Genitourinary: other - [place] catheter , Hematuria Extremities: no edema Skin: other - skin induration in right arm Neurologic/Psychiatric: aphasia, other - opens eyes Laboratory Tests 10/17/19 05:25: White Blood Count 15.2H, Red Blood Count 3.52L, Hemoglobin 11.5L, Hematocrit 34.3L, Mean Corpuscular Volume 98, Mean Corpuscular Hemoglobin 32.8H, Mean Corpuscular Hemoglobin Concent 33.6, Red Cell Distribution Width 14.1, Platelet Count 460H, Mean Platelet Volume 5.9L, Neutrophils (%) (Auto) 71.1, Lymphocytes (%) (Auto) 21.2, Monocytes (%) (Auto) 6.6, Eosinophils (%) (Auto) 0.0, Basophils (%) (Auto) 1.0, Sodium Level 140, Potassium Level 4.6, Chloride Level 101, Carbon Dioxide Level 32, Anion Gap 7, Blood Urea Nitrogen 24H, Creatinine 0.7, Estimat Glomerular Filtration Rate > 60, Glucose Level 132H, Calcium Level 9.8, Phosphorus Level 3.2, Magnesium Level 2.1, Total Bilirubin 0.2, Aspartate Amino Transf (AST/SGOT) 98H, Alanine Aminotransferase (ALT/SGPT) 95H, Alkaline Phosphatase 394H, Total Protein 8.8H, Albumin 2.9L, Globulin 5.9, Albumin/ Globulin Ratio 0.5L Current Medications Medications (Trade) Dose Ordered Sig/Nidhi Route PRN Reason Start Time Stop Time Status Last Admin Dose Admin Acetaminophen (Tylenol) 650 mg Q4H PRN GT Pain/Temp >100.5 10/01/19 03:30 10/30/19 23:29 10/13/19 14:52 Albuterol Sulfate (Proventil) 2.5 mg Q6HRT HHN 10/14/19 13:00 10/18/19 15:59 10/17/19 00:45 Amlodipine Besylate (Norvasc) 10 mg DAILY GT 10/16/19 09:00 10/31/19 08:59 10/17/19 09:22 Ascorbic Acid (Vitamin C) 250 mg BID GT 10/01/19 09:00 10/31/19 08:59 10/17/19 09:23 Calcitonin [place] (Miacalcin) 1 sprays DAILY NASAL 10/17/19 09:00 01/15/20 08:59 10/17/19 09:24 Clonidine HCl (Catapres Tab) 0.1 mg Q4H PRN GT bp over 170 syst 10/15/19 12:15 01/13/20 12:14 Clonidine HCl (Catapres Tab) 0.1 mg Q8HR GT 10/15/19 14:00 12/30/19 00:00 10/17/19 05:39 Dextrose (Dextrose 50%) 25 ml Q30M PRN IV Hypoglycemia 09/30/19 22:00 12/29/19 21:59 Dextrose (Dextrose 50%) 50 ml Q30M PRN IV Hypoglycemia 09/30/19 22:00 12/29/19 21:59 Docusate Sodium (Colace) 100 mg TID GT 10/15/19 13:00 10/31/19 08:59 10/17/19 09:23 Donepezil HCl (Aricept) 5 mg BEDTIME GT 10/01/19 21:00 10/31/19 20:59 10/16/19 20:30 Heparin Sodium (Porcine) (Heparin 5000 units/ml) 5,000 units EVERY 8 HOURS SUBQ 10/01/19 06:00 11/15/19 05:59 10/17/19 05:46 Insulin Aspart (NovoLOG) BEFORE MEALS AND HS SUBQ 09/30/19 21:51 12/29/19 21:50 10/17/19 05:51 Lansoprazole (Prevacid) 30 mg BID GT 10/15/19 12:15 11/14/19 12:14 10/17/19 09:22 Levetiracetam (Keppra) 500 mg Q12HR GT 10/01/19 09:00 11/15/19 08:59 10/17/19 09:23 Magnesium Hydroxide (Mom) 30 ml DAILY GT 10/01/19 09:00 10/31/19 08:59 10/17/19 09:23 Methylprednisolone Sodium Succinate (Solu-MEDROL) 40 mg EVERY 6 HOURS IVP 10/13/19 16:00 01/11/20 15:59 10/17/19 05:39 Metoclopramide HCl (Reglan) 5 mg Q6H PRN IVP Nausea & Vomiting 10/02/19 09:45 11/01/19 09:44 Multivitamins (Multivitamins) 1 tab DAILY GT 10/01/19 09:00 10/31/19 08:59 10/17/19 09:22 Phenytoin (Dilantin) 300 mg QHS GT 10/15/19 21:00 11/15/19 08:59 10/16/19 20:30 Polymyxin B Sulfate 652875 units/Dextrose 275 ml @ 275 mls/hr Q12H IV 10/16/19 14:00 10/23/19 13:59 10/17/19 02:03 Sennosides (Senokot) 8.6 mg DAILY GT 10/01/19 09:00 10/31/19 08:59 10/17/19 09:22 Assessment/Plan Assessment/Plan IMPRESSION: 1. Right lung pneumonia. COVID pcr x 3 negative 2. snf resident. 3. Recent hospitalization at acute hospital. 4. Diabetes mellitus. 5. Hypertension. 6. COPD. 7. Pacemaker. 8. Acintebacter bacteremia DISCUSSION: Continue broad-spectrum antibiotics. Continue oxygen, pulmonary hygiene. I will follow carefully. COVID 19 pcr x 3 negative Requiring ventimask O2; 35% Fio2 CXR unchanged OK to dc to [place] Kam Mathis Omar Syed MD October 17, 2019 11:26
[2019-10-17 12:00] VITALS: BP 146/88
[2019-10-17 13:03] VITALS: BP 146/88
--- NOTE | 2019-10-17 13:21 | Cardiac Electrophysiology PN ---
Assessment/Plan Assessment/Plan 1. Sinus tachy due to pneumonia and dehydration. Improved with Abx and iv fluids 2. Hypertension on amlodipine 10 mg daily and Clonidine 0.2 bid 3. PNA and WBC 20 K On IV antibiotic improved to 15 K Ruled out for COVID 4. History of seizures, on Keppra. 5. Dysphagia, s/P PEG 6. Hypernatremia and dehydration. Resolved [facility] special needs nanny pending as [facility]AN[facility] DENIED PATIENT Subjective Subjective Off isolation as 2 Covids are negative on 10/01 and 10/07/19. Nonverbal. GT feeding ongoing. In SR. Khan[facility] denied patient WBC down from 20 K to 16K Objective Last 24 Hour Vital Signs Date Time Temp Pulse Resp B/P (MAP) Pulse Ox O2 Delivery O2 Flow Rate FiO2 10/17/19 13:03 146/88 10/17/19 10:39 74 10/17/19 09:22 76 138/72 10/17/19 09:00 Venturi Mask 6.0 Venturi Mask 6.0 10/17/19 08:36 96 Venturi Mask 8.0 40 10/17/19 08:00 98.0 74 20 138/72 (94) 97 10/17/19 05:39 145/87 10/17/19 04:00 98.0 88 19 145/87 (106) 98 10/17/19 04:00 85 10/17/19 00:45 87 20 98 Venturi Mask 6.0 35 89 19 97 10/17/19 00:00 69 10/17/19 00:00 97.6 83 19 140/68 (92) 100 10/16/19 22:12 136/82 10/16/19 21:00 Venturi Mask 6.0 Venturi Mask 6.0 10/16/19 20:00 97.9 86 19 136/82 (100) 100 10/16/19 20:00 88 10/16/19 19:26 96 Venturi Mask 6.0 35 10/16/19 19:26 91 21 98 Venturi Mask 6.0 35 91 18 96 10/16/19 16:00 97.6 89 20 151/66 (94) 95 10/16/19 15:40 92 10/16/19 13:24 94 20 98 Venturi Mask 6.0 35 94 19 95 Intake and Output 10/16/19 10/17/19 19:00 07:00 Intake Total 1130 ml 650 ml Output Total 1200 ml Balance -70 ml 650 ml Intake Free Water 200 ml 200 ml IV Total 330 ml Tube Feeding 600 ml 450 ml Output Urine Total 1200 ml # Bowel Movements 1 Laboratory Tests Test 10/17/19 05:25 White Blood Count 15.2 K/UL (4.8-10.8) H Red Blood Count 3.52 M/UL (4.70-6.10) L Hemoglobin 11.5 G/DL (14.2-18.0) L Hematocrit 34.3 % (42.0-52.0) L Mean Corpuscular Volume 98 FL (80-99) Mean Corpuscular Hemoglobin 32.8 PG (27.0-31.0) H Mean Corpuscular Hemoglobin Concent 33.6 G/DL (32.0-36.0) Red Cell Distribution Width 14.1 % (11.6-14.8) Platelet Count 460 K/UL (150-450) H Mean Platelet Volume 5.9 FL (6.5-10.1) L Neutrophils (%) (Auto) 71.1 % (45.0-75.0) Lymphocytes (%) (Auto) 21.2 % (20.0-45.0) Monocytes (%) (Auto) 6.6 % (1.0-10.0) Eosinophils (%) (Auto) 0.0 % (0.0-3.0) Basophils (%) (Auto) 1.0 % (0.0-2.0) Sodium Level 140 MMOL/L (136-145) Potassium Level 4.6 MMOL/L (3.5-5.1) Chloride Level 101 MMOL/L (98-107) Carbon Dioxide Level 32 MMOL/L (21-32) Anion Gap 7 mmol/L (5-15) Blood Urea Nitrogen 24 mg/dL (7-18) H Creatinine 0.7 MG/DL (0.55-1.30) Estimat Glomerular Filtration Rate > 60 mL/min (>60) Glucose Level 132 MG/DL (74-106) H Calcium Level 9.8 MG/DL (8.5-10.1) Phosphorus Level 3.2 MG/DL (2.5-4.9) Magnesium Level 2.1 MG/DL (1.8-2.4) Total Bilirubin 0.2 MG/DL (0.2-1.0) Aspartate Amino Transf (AST/SGOT) 98 U/L (15-37) H Alanine Aminotransferase (ALT/SGPT) 95 U/L (12-78) H Alkaline Phosphatase 394 U/L (46-116) H Total Protein 8.8 G/DL (6.4-8.2) H Albumin 2.9 G/DL (3.4-5.0) L Globulin 5.9 g/dL Albumin/Globulin Ratio 0.5 (1.0-2.7) L Objective HEAD AND NECK: No JVD. LUNGS: Coarse rhonchi. CARDIOVASCULAR: Regular S1 and S2 with no gallop. ABDOMEN: Status post G-tube. EXTREMITIES: No pitting edema. Sajan Campbell MD October 17, 2019 13:21
--- NOTE | 2019-10-17 13:31 | Nephrology Progress Note ---
Assessment/Plan Problem List: (1) Hypercalcemia (2) Dehydration (3) Leukocytosis (4) HTN (hypertension) (5) Encephalopathy due to metabolic factor or toxin Assessment Hypercalcemia, partly dehydration, will check thyroid function tests Hypertension Toxic metabolic encephalopathy, history of dementia Sepsis with MDR Acinetobacter Pneumonia negative COVID-19 x3 Anemia PEG Phlebitis and cellulitis of right arm Plan White blood cells down from 20,000-16,000 Slow hydrate, 1 L half-normal saline ordered, serum calcium slightly improved Start calcitonin nasal spray Monitor electrolytes and renal parameters calcium and phosphorus Adjust blood pressure medication, PRN clonidine for blood pressure over 170 systolic Check Dilantin level Patient on steroid , watch renal parameters electrolytes and blood sugar on steroids Per orders Subjective ROS Limited/Unobtainable: No Constitutional: Reports: malaise, weakness Objective Objective Last 24 Hour Vital Signs Date Time Temp Pulse Resp B/P (MAP) Pulse Ox O2 Delivery O2 Flow Rate FiO2 10/17/19 13:03 146/88 10/17/19 10:39 74 10/17/19 09:22 76 138/72 10/17/19 09:00 Venturi Mask 6.0 Venturi Mask 6.0 10/17/19 08:36 96 Venturi Mask 8.0 40 10/17/19 08:00 98.0 74 20 138/72 (94) 97 10/17/19 05:39 145/87 10/17/19 04:00 98.0 88 19 145/87 (106) 98 10/17/19 04:00 85 10/17/19 00:45 87 20 98 Venturi Mask 6.0 35 89 19 97 10/17/19 00:00 69 10/17/19 00:00 97.6 83 19 140/68 (92) 100 10/16/19 22:12 136/82 10/16/19 21:00 Venturi Mask 6.0 Venturi Mask 6.0 10/16/19 20:00 97.9 86 19 136/82 (100) 100 10/16/19 20:00 88 10/16/19 19:26 96 Venturi Mask 6.0 35 10/16/19 19:26 91 21 98 Venturi Mask 6.0 35 91 18 96 10/16/19 16:00 97.6 89 20 151/66 (94) 95 10/16/19 15:40 92 Intake and Output 10/16/19 10/17/19 19:00 07:00 Intake Total 1130 ml 650 ml Output Total 1200 ml Balance -70 ml 650 ml Intake Free Water 200 ml 200 ml IV Total 330 ml Tube Feeding 600 ml 450 ml Output Urine Total 1200 ml # Bowel Movements 1 Laboratory Tests 10/17/19 05:25: White Blood Count 15.2H, Red Blood Count 3.52L, Hemoglobin 11.5L, Hematocrit 34.3L, Mean Corpuscular Volume 98, Mean Corpuscular Hemoglobin 32.8H, Mean Corpuscular Hemoglobin Concent 33.6, Red Cell Distribution Width 14.1, Platelet Count 460H, Mean Platelet Volume 5.9L, Neutrophils (%) (Auto) 71.1, Lymphocytes (%) (Auto) 21.2, Monocytes (%) (Auto) 6.6, Eosinophils (%) (Auto) 0.0, Basophils (%) (Auto) 1.0, Sodium Level 140, Potassium Level 4.6, Chloride Level 101, Carbon Dioxide Level 32, Anion Gap 7, Blood Urea Nitrogen 24H, Creatinine 0.7, Estimat Glomerular Filtration Rate > 60, Glucose Level 132H, Calcium Level 9.8, Phosphorus Level 3.2, Magnesium Level 2.1, Total Bilirubin 0.2, Aspartate Amino Transf (AST/SGOT) 98H, Alanine Aminotransferase (ALT/SGPT) 95H, Alkaline Phosphatase 394H, Total Protein 8.8H, Albumin 2.9L, Globulin 5.9, Albumin/ Globulin Ratio 0.5L Height (Feet): 6 Height (Inches): 0.00 Weight (Pounds): 186 General Appearance: no apparent distress, lethargic Cardiovascular: normal rate Respiratory/Chest: decreased breath sounds Abdomen: soft Hitesh Henry MD October 17, 2019 13:31
--- NOTE | 2019-10-17 13:34 | Surgery Progress Note ---
Surgery Progress Note Subjective Additional Comments Off isolation as 2 Covids are negative on 10/01 and 10/07/19. Nonverbal. pending dispo Objective Last 24 Hour Vital Signs Date Time Temp Pulse Resp B/P (MAP) Pulse Ox O2 Delivery O2 Flow Rate FiO2 10/17/19 13:03 146/88 10/17/19 10:39 74 10/17/19 09:22 76 138/72 10/17/19 09:00 Venturi Mask 6.0 Venturi Mask 6.0 10/17/19 08:36 96 Venturi Mask 8.0 40 10/17/19 08:00 98.0 74 20 138/72 (94) 97 10/17/19 05:39 145/87 10/17/19 04:00 98.0 88 19 145/87 (106) 98 10/17/19 04:00 85 10/17/19 00:45 87 20 98 Venturi Mask 6.0 35 89 19 97 10/17/19 00:00 69 10/17/19 00:00 97.6 83 19 140/68 (92) 100 10/16/19 22:12 136/82 10/16/19 21:00 Venturi Mask 6.0 Venturi Mask 6.0 10/16/19 20:00 97.9 86 19 136/82 (100) 100 10/16/19 20:00 88 10/16/19 19:26 96 Venturi Mask 6.0 35 10/16/19 19:26 91 21 98 Venturi Mask 6.0 35 91 18 96 10/16/19 16:00 97.6 89 20 151/66 (94) 95 10/16/19 15:40 92 I&O Intake and Output 10/16/19 10/17/19 19:00 07:00 Intake Total 1130 ml 650 ml Output Total 1200 ml Balance -70 ml 650 ml Intake Free Water 200 ml 200 ml IV Total 330 ml Tube Feeding 600 ml 450 ml Output Urine Total 1200 ml # Bowel Movements 1 Dressing: saturated Wound: dry Drains: other Cardiovascular: RSR Respiratory: decreased breath sounds Abdomen: soft, non-tender, present bowel sounds Extremities: no tenderness, no cyanosis Laboratory Tests Test 10/17/19 05:25 White Blood Count 15.2 K/UL (4.8-10.8) H Red Blood Count 3.52 M/UL (4.70-6.10) L Hemoglobin 11.5 G/DL (14.2-18.0) L Hematocrit 34.3 % (42.0-52.0) L Mean Corpuscular Volume 98 FL (80-99) Mean Corpuscular Hemoglobin 32.8 PG (27.0-31.0) H Mean Corpuscular Hemoglobin Concent 33.6 G/DL (32.0-36.0) Red Cell Distribution Width 14.1 % (11.6-14.8) Platelet Count 460 K/UL (150-450) H Mean Platelet Volume 5.9 FL (6.5-10.1) L Neutrophils (%) (Auto) 71.1 % (45.0-75.0) Lymphocytes (%) (Auto) 21.2 % (20.0-45.0) Monocytes (%) (Auto) 6.6 % (1.0-10.0) Eosinophils (%) (Auto) 0.0 % (0.0-3.0) Basophils (%) (Auto) 1.0 % (0.0-2.0) Sodium Level 140 MMOL/L (136-145) Potassium Level 4.6 MMOL/L (3.5-5.1) Chloride Level 101 MMOL/L (98-107) Carbon Dioxide Level 32 MMOL/L (21-32) Anion Gap 7 mmol/L (5-15) Blood Urea Nitrogen 24 mg/dL (7-18) H Creatinine 0.7 MG/DL (0.55-1.30) Estimat Glomerular Filtration Rate > 60 mL/min (>60) Glucose Level 132 MG/DL (74-106) H Calcium Level 9.8 MG/DL (8.5-10.1) Phosphorus Level 3.2 MG/DL (2.5-4.9) Magnesium Level 2.1 MG/DL (1.8-2.4) Total Bilirubin 0.2 MG/DL (0.2-1.0) Aspartate Amino Transf (AST/SGOT) 98 U/L (15-37) H Alanine Aminotransferase (ALT/SGPT) 95 U/L (12-78) H Alkaline Phosphatase 394 U/L (46-116) H Total Protein 8.8 G/DL (6.4-8.2) H Albumin 2.9 G/DL (3.4-5.0) L Globulin 5.9 g/dL Albumin/Globulin Ratio 0.5 (1.0-2.7) L Plan Problems: (1) Decubitus skin ulcer Assessment & Plan: Pt presented on admission with multiple pressure injuries. Resolving pressure injury cleft of R ear. [place] epithelial at base of wound with marginal erythema. Non-blanching erythema cleft of L ear. Pt is receiving o2 via nasal cannula, and oxygen tubing padded with gauze to minimize pressure and friction to both ears. Unstageable Sacral Pressure Injury(L)9.4cm x (W)7.8cm. Base of wound is 75% necrotic and and soft, 20% surrounding slough,Marginal erythema and macerated borders. Mild odor noted. Small amt seropurulent exudate.Periwound,skin tone is darker without elevation in skin temp, fluctuance or induration.small area of hyperpigmentation noted to L gluteal cheek. L Heel extending into plantar aspect is boggy with non-blanching erythema. Non-blanching erythema R heel without induration or fluctuance. Xerosis skin both feet. stable with [facility] d/c planning Tx.Plan: Cleanse Sacral wound with Saline. Apply Therahoney. Apply Moisture Barrier Paste periwound. Cover with Optifoam Drsg. Change every 3 days and prn. Apply Moisture Barrier paste to Perineum, R and L buttocks with each incontinence care. Apply Cavilon Skin Barrier to both heels. Cover each heel with Optifoam drsg. Change every 7 days and prn. Apply Cavilon Skin Barrier to clefts of both R and L ears Daily. Pad Oxygen tubing with gauze around Ears. Keep Oxygen tubing loose around Ears. Reposition at least every 2hours or as tolerated. Off-load heels with pillow. APM/CHRISTOPHER Mattress overlay. (2) Leukocytosis Assessment & Plan: leukocytosis 28k on admission trending down resolving wbc on abx wounds unlikely etiology pna ua noted cont abx as per id wbc 12k trending up again imaging reviewed abx changed per Id will follow with recs wbc trending up - likely steroid related otherwise stable cxr with v Apparently increased hazy airspace opacity on background of generalized mild interstitial disease. May be an artifact of under distention but could reflect worsening bilateral infiltrates. Stable bibasilar atelectasis and right basilar consolidation thank you US On the right, grayscale and duplex images demonstrate no evidence of intraluminal thrombus. Normal phasic Doppler waveforms. Patent upstream internal jugular and subclavian veins. Normal compressibility. The cephalic vein is very small. Impression: Negative for upper extremity venous thrombosis (3) Lung mass (4) Protein-calorie malnutrition, severe Assessment & Plan: There is a gastrostomy tube in place. Previously demonstrated nasogastric tube is no longer evident. Bowel gas pattern is unremarkable. No masses or unusual calcifications. There is evidence of a Macedo catheter. There is a right hip prosthesis. There are degenerative changes of the lumbar spine nutritional optimization tube feeds bmi noted alb low cont with feeds DAILY ESTIMATED NEEDS: Needs based on Pulmonary, wounds; 72.5kg 25-30 kcals/kg 5048-0614 total kcals 1.25-1.5 g protein/kg 90-108 g total protein 25-30 mL/kg 9768-0085 total fluid mLs NUTRITION DIAGNOSIS: 1. Increased pro needs r/t wound healing as evidenced by pt adm w/ multiple wounds including unstageable sacral wound, refer to WC eval. 2. Swallowing difficulty r/t dysphagia as evidenced by GT dependent. CURRENT TF:Glucerna 1.5 @ 50ml/hr x 22 hrs (on Dilantin QD) ENTERAL NUTRITION RECOMMENDATIONS: Glucerna 1.5 @55ml/hr x22 hrs (1 hr held before and after Dilantin med) to provide 1210ml, 1815kcal, 100g prot, 918ml free water - Increase goal rate to 55ml/hr to meet 100% est kcal/prot needs - Hold 1 hr before and after Dilantin med - HOB over 30 degrees ADDITIONAL RECOMMENDATIONS: * Wound healing: continue Vit C add KESHIA in 4oz H2O BID via GT * Calibrated bedscale wt for accurate CBW * Check lytes daily w/ TF, replete as needed * Monitor TF tolerance/residuals * DC D5 once TF @ goal (5) Suspected COVID-19 virus infection Assessment & Plan: covid negative x3 so far respiratory improved Right basilar consolidation and atelectasis, could indicate pneumonia. Minimal left basilar atelectasis Gabino Little October 17, 2019 13:34
--- NOTE | 2019-10-17 15:51 | Hematology/Onc Progress Note ---
Assessment/Plan Assessment/Plan # Leukocytosis on admission, rule out covid, given snf hx of multiple covid patinets, with pna noted on imaging --> may be due to infection --> per id --> wbc 28-->11.6-->12.1-->18->19->12.8-->13->20->16-->15.2 ==> on steriods --> smear is noted --> abx cefepime/azithro-->polymyxin -> cefepime/canv # Hypercalcemia r/o malignancy, r/o myeloma, elevated on admission, may be 2/2 dehydration --> Ca 10.7-->9.9 --> pth is wnl, spep is also wnl as is upep --> on iv fluids as per pcp --> renal eval prn --> pth on prior admission was 42 # Multiple lung nodules -- in 2017 2 cm pleural-based masslike opacity containing multiple nodular calcifications andadjacent parenchymal linear density persists in the anterolateral periphery of thelateral segment right middle lobe, unchanged. Adjacent small nodular parenchymaldensities persist, unchanged. --> pulm aware --> consider ct chest once better --> Dr. 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 Subjective Allergies: Coded Allergies: PNEUMOCOCCAL VACCINE (Unverified Allergy, Unknown, 10/07/18) Uncoded Allergies: PNA VACCINE (Allergy, Unknown, 09/30/19) Subjective 10/01 nonverbal, confused, to be npo, tube feeds on hold, no bleeding, meds reviewed 10/02 remains nonverbal, on gtube feeds, labs noted, no bleeding 10/04 labs reviewed, on polymyxin, cont sq heparin q8 hrs, nc 2l, 10/05 labs still pending, gtube feeds ongoing, no bleeding 10/06 remains confused, with glucerna running, labs reviewed, 99.7f overnight 10/07 labs reviewed, no bleeding, on glucerna, no fc 10/08 nonverbal, with gtube, working, nonfunctional, labs ordered 10/09 no bleeding, no night sweats, no major changes, no fc 10/11 labs are noted, no bleeding or chills, meds reviewed 10/12 no bleeding, remains confused, no night sweats, meds noted 10/13 labs reviewed, no bleeding or night sweats, meds noted, wbc higher 10/14 tele, cxr unchanged, iv abx, on steroids, r arm joseph duplex no dvt 10/15 labs are noted, for dc to ngoc, no bleeding, meds reviewed 10/16 nonverbal, v mask, steroids, labs and meds reviewed Objective Objective Current Medications Medications (Trade) Dose Ordered Sig/Nidhi Route PRN Reason Start Time Stop Time Status Last Admin Dose Admin Acetaminophen (Tylenol) 650 mg Q4H PRN GT Pain/Temp >100.5 10/01/19 03:30 10/30/19 23:29 10/13/19 14:52 Albuterol Sulfate (Proventil) 2.5 mg Q6HRT HHN 10/14/19 13:00 10/18/19 15:59 10/17/19 00:45 Amlodipine Besylate (Norvasc) 10 mg DAILY GT 10/16/19 09:00 10/31/19 08:59 10/17/19 09:22 Ascorbic Acid (Vitamin C) 250 mg BID GT 10/01/19 09:00 10/31/19 08:59 10/17/19 09:23 Calcitonin Bypro (Miacalcin) 1 sprays DAILY NASAL 10/17/19 09:00 01/15/20 08:59 10/17/19 09:24 Clonidine HCl (Catapres Tab) 0.1 mg Q4H PRN GT bp over 170 syst 10/15/19 12:15 01/13/20 12:14 Clonidine HCl (Catapres Tab) 0.1 mg Q8HR GT 10/15/19 14:00 12/30/19 00:00 10/17/19 13:03 Dextrose (Dextrose 50%) 25 ml Q30M PRN IV Hypoglycemia 09/30/19 22:00 12/29/19 21:59 Dextrose (Dextrose 50%) 50 ml Q30M PRN IV Hypoglycemia 09/30/19 22:00 12/29/19 21:59 Docusate Sodium (Colace) 100 mg TID GT 10/15/19 13:00 10/31/19 08:59 10/17/19 13:03 Donepezil HCl (Aricept) 5 mg BEDTIME GT 10/01/19 21:00 10/31/19 20:59 10/16/19 20:30 Heparin Sodium (Porcine) (Heparin 5000 units/ml) 5,000 units EVERY 8 HOURS SUBQ 10/01/19 06:00 11/15/19 05:59 10/17/19 13:05 Insulin Aspart (NovoLOG) BEFORE MEALS AND HS SUBQ 09/30/19 21:51 12/29/19 21:50 10/17/19 05:51 Lansoprazole (Prevacid) 30 mg BID GT 10/15/19 12:15 11/14/19 12:14 10/17/19 09:22 Levetiracetam (Keppra) 500 mg Q12HR GT 10/01/19 09:00 11/15/19 08:59 10/17/19 09:23 Magnesium Hydroxide (Mom) 30 ml DAILY GT 10/01/19 09:00 10/31/19 08:59 10/17/19 09:23 Methylprednisolone Sodium Succinate (Solu-MEDROL) 40 mg EVERY 6 HOURS IVP 10/13/19 16:00 01/11/20 15:59 10/17/19 13:00 Metoclopramide HCl (Reglan) 5 mg Q6H PRN IVP Nausea & Vomiting 10/02/19 09:45 11/01/19 09:44 Multivitamins (Multivitamins) 1 tab DAILY GT 10/01/19 09:00 10/31/19 08:59 10/17/19 09:22 Phenytoin (Dilantin) 300 mg QHS GT 10/15/19 21:00 11/15/19 08:59 10/16/19 20:30 Polymyxin B Sulfate 193997 units/Dextrose 275 ml @ 275 mls/hr Q12H IV 10/16/19 14:00 10/23/19 13:59 10/17/19 13:47 Sennosides (Senokot) 8.6 mg DAILY GT 10/01/19 09:00 10/31/19 08:59 10/17/19 09:22 Last 24 Hour Vital Signs Date Time Temp Pulse Resp B/P (MAP) Pulse Ox O2 Delivery O2 Flow Rate FiO2 10/17/19 13:03 146/88 10/17/19 12:00 98.8 94 19 146/88 (107) 98 10/17/19 12:00 94 10/17/19 10:39 74 10/17/19 09:22 76 138/72 10/17/19 09:00 Venturi Mask 6.0 Venturi Mask 6.0 10/17/19 08:36 96 Venturi Mask 8.0 40 10/17/19 08:00 98.0 74 20 138/72 (94) 97 10/17/19 05:39 145/87 10/17/19 04:00 98.0 88 19 145/87 (106) 98 10/17/19 04:00 85 10/17/19 00:45 87 20 98 Venturi Mask 6.0 35 89 19 97 10/17/19 00:00 69 10/17/19 00:00 97.6 83 19 140/68 (92) 100 10/16/19 22:12 136/82 10/16/19 21:00 Venturi Mask 6.0 Venturi Mask 6.0 10/16/19 20:00 97.9 86 19 136/82 (100) 100 10/16/19 20:00 88 10/16/19 19:26 96 Venturi Mask 6.0 35 10/16/19 19:26 91 21 98 Venturi Mask 6.0 35 91 18 96 10/16/19 16:00 97.6 89 20 151/66 (94) 95 10/16/19 15:40 92 10/16/19 13:24 94 20 98 Venturi Mask 6.0 35 94 19 95 10/16/19 13:03 135/76 10/16/19 12:00 97.9 93 18 135/76 (95) 100 10/16/19 11:36 91 10/16/19 11:15 86 20 100 Venturi Mask 6.0 35 10/16/19 11:15 100 Venturi Mask 6.0 35 10/16/19 09:28 79 138/78 10/16/19 09:00 Venturi Mask 6.0 Venturi Mask 6.0 10/16/19 08:00 97.2 79 20 138/78 (98) 100 10/16/19 07:28 79 10/16/19 07:03 138/94 10/16/19 04:00 79 10/16/19 04:00 97.3 77 19 130/74 (92) 100 10/16/19 01:51 130/94 10/16/19 01:24 93 20 100 Venturi Mask 6.0 35 94 20 97 10/16/19 00:00 70 10/16/19 00:00 97.1 83 18 129/82 (98) 99 10/15/19 21:00 Venturi Mask 6.0 Venturi Mask 6.0 10/15/19 20:00 92 10/15/19 20:00 96.7 87 18 127/98 (108) 97 10/15/19 19:51 96 Venturi Mask 6.0 35 10/15/19 19:48 91 20 100 Venturi Mask 6.0 35 88 20 96 10/15/19 16:00 98.1 102 20 127/75 (92) 93 10/15/19 16:00 98 Intake and Output 10/16/19 10/17/19 19:00 07:00 Intake Total 1130 ml 650 ml Output Total 1200 ml Balance -70 ml 650 ml Intake Free Water 200 ml 200 ml IV Total 330 ml Tube Feeding 600 ml 450 ml Output Urine Total 1200 ml # Bowel Movements 1 Labs Test 10/15/19 10:25 10/16/19 06:20 10/17/19 05:25 Phosphorus Level 3.2 MG/DL (2.5-4.9) 2.8 MG/DL (2.5-4.9) 3.2 MG/DL (2.5-4.9) Magnesium Level 2.1 MG/DL (1.8-2.4) 2.2 MG/DL (1.8-2.4) 2.1 MG/DL (1.8-2.4) Thyroid Stimulating Hormone (TSH) 0.593 uiU/mL (0.358-3.740) White Blood Count 16.0 K/UL (4.8-10.8) 15.2 K/UL (4.8-10.8) Red Blood Count 3.32 M/UL (4.70-6.10) 3.52 M/UL (4.70-6.10) Hemoglobin 10.8 G/DL (14.2-18.0) 11.5 G/DL (14.2-18.0) Hematocrit 32.2 % (42.0-52.0) 34.3 % (42.0-52.0) Mean Corpuscular Volume 97 FL (80-99) 98 FL (80-99) Mean Corpuscular Hemoglobin 32.5 PG (27.0-31.0) 32.8 PG (27.0-31.0) Mean Corpuscular Hemoglobin Concent 33.5 G/DL (32.0-36.0) 33.6 G/DL (32.0-36.0) Red Cell Distribution Width 14.3 % (11.6-14.8) 14.1 % (11.6-14.8) Platelet Count 479 K/UL (150-450) 460 K/UL (150-450) Mean Platelet Volume 6.1 FL (6.5-10.1) 5.9 FL (6.5-10.1) Neutrophils (%) (Auto) 78.7 % (45.0-75.0) 71.1 % (45.0-75.0) Lymphocytes (%) (Auto) 13.1 % (20.0-45.0) 21.2 % (20.0-45.0) Monocytes (%) (Auto) 7.3 % (1.0-10.0) 6.6 % (1.0-10.0) Eosinophils (%) (Auto) 0.0 % (0.0-3.0) 0.0 % (0.0-3.0) Basophils (%) (Auto) 0.9 % (0.0-2.0) 1.0 % (0.0-2.0) Sodium Level 143 MMOL/L (136-145) 140 MMOL/L (136-145) Potassium Level 4.3 MMOL/L (3.5-5.1) 4.6 MMOL/L (3.5-5.1) Chloride Level 105 MMOL/L (98-107) 101 MMOL/L (98-107) Carbon Dioxide Level 32 MMOL/L (21-32) 32 MMOL/L (21-32) Anion Gap 6 mmol/L (5-15) 7 mmol/L (5-15) Blood Urea Nitrogen 25 mg/dL (7-18) 24 mg/dL (7-18) Creatinine 0.8 MG/DL (0.55-1.30) 0.7 MG/DL (0.55-1.30) Estimat Glomerular Filtration Rate > 60 mL/min (>60) > 60 mL/min (>60) Glucose Level 112 MG/DL (74-106) 132 MG/DL (74-106) Uric Acid 4.0 MG/DL (2.6-7.2) Calcium Level 10.0 MG/DL (8.5-10.1) 9.8 MG/DL (8.5-10.1) Total Bilirubin 0.2 MG/DL (0.2-1.0) 0.2 MG/DL (0.2-1.0) Gamma Glutamyl Transpeptidase 1130 U/L (5-85) Aspartate Amino Transf (AST/SGOT) 77 U/L (15-37) 98 U/L (15-37) Alanine Aminotransferase (ALT/SGPT) 76 U/L (12-78) 95 U/L (12-78) Alkaline Phosphatase 370 U/L (46-116) 394 U/L (46-116) Total Creatine Kinase 23 U/L (26-308) Troponin I 0.017 ng/mL (0.000-0.056) C-Reactive Protein, Quantitative 1.5 mg/dL (0.00-0.90) Pro-B-Type Natriuretic Peptide 309 pg/mL (0-125) Total Protein 8.8 G/DL (6.4-8.2) 8.8 G/DL (6.4-8.2) Albumin 2.9 G/DL (3.4-5.0) 2.9 G/DL (3.4-5.0) Globulin 5.9 g/dL 5.9 g/dL Albumin/Globulin Ratio 0.5 (1.0-2.7) 0.5 (1.0-2.7) Phenytoin (Dilantin) Level 9.0 ug/mL (10-20) Height (Feet): 6 Height (Inches): 0.00 Weight (Pounds): 186 Objective vitals: noted gen: nonverbal pulm: ctab, some crackles left side, v mask++ heent; nc, at, eomi Cv: rrr, no mgr abd: soft, nt, nd +gtube ext: no cce : ruth+ Ignacio Ponce MD October 17, 2019 15:51
--- NOTE | 2019-10-17 16:38 | General Progress Note ---
Assessment/Plan Problem List: (1) Fever ICD Codes: R50.9 - Fever, unspecified SNOMED: 548633807 (2) COPD (chronic obstructive pulmonary disease) ICD Codes: J44.9 - Chronic obstructive pulmonary disease, unspecified SNOMED: 66195009 (3) Severe sepsis ICD Codes: A41.9 - Sepsis, unspecified organism; R65.20 - Severe sepsis without septic shock SNOMED: 12619068 (4) PEG (percutaneous endoscopic gastrostomy) adjustment/replacement/removal ICD Codes: Z43.1 - Encounter for attention to gastrostomy SNOMED: 867194540, 594492247 (5) Protein-calorie malnutrition, severe ICD Codes: E43 - Unspecified severe protein-calorie malnutrition SNOMED: 300200886 (6) Acute febrile illness ICD Codes: R50.9 - Fever, unspecified SNOMED: 192066855 (7) PNA (pneumonia) ICD Codes: J18.9 - Pneumonia, unspecified organism SNOMED: 515507511 (8) Suspected COVID-19 virus infection ICD Codes: Z20.828 - Contact with and (suspected) exposure to other viral communicable diseases SNOMED: 094721535 (9) Congestion secondary to upper respiratory illness Status: progressing, unchanged Assessment/Plan: ngoc transfer wbc is traneding down cellulitis of UE MDR SEPSIS.abx per id repeat covid is negative positive blood cx pna malnutrition improving leukocytosis persistent midly elevated LFt improving Subjective ROS Limited/Unobtainable: Yes Allergies: Coded Allergies: PNEUMOCOCCAL VACCINE (Unverified Allergy, Unknown, 10/07/18) Uncoded Allergies: PNA VACCINE (Allergy, Unknown, 09/30/19) Objective Last 24 Hour Vital Signs Date Time Temp Pulse Resp B/P (MAP) Pulse Ox O2 Delivery O2 Flow Rate FiO2 10/17/19 16:00 89 10/17/19 13:03 146/88 10/17/19 12:00 98.8 94 19 146/88 (107) 98 10/17/19 12:00 94 10/17/19 10:39 74 10/17/19 09:22 76 138/72 10/17/19 09:00 Venturi Mask 6.0 Venturi Mask 6.0 10/17/19 08:36 96 Venturi Mask 8.0 40 10/17/19 08:00 98.0 74 20 138/72 (94) 97 10/17/19 05:39 145/87 10/17/19 04:00 98.0 88 19 145/87 (106) 98 10/17/19 04:00 85 10/17/19 00:45 87 20 98 Venturi Mask 6.0 35 89 19 97 10/17/19 00:00 69 10/17/19 00:00 97.6 83 19 140/68 (92) 100 10/16/19 22:12 136/82 10/16/19 21:00 Venturi Mask 6.0 Venturi Mask 6.0 10/16/19 20:00 97.9 86 19 136/82 (100) 100 10/16/19 20:00 88 10/16/19 19:26 96 Venturi Mask 6.0 35 10/16/19 19:26 91 21 98 Venturi Mask 6.0 35 91 18 96 Intake and Output 10/16/19 10/17/19 19:00 07:00 Intake Total 1130 ml 650 ml Output Total 1200 ml Balance -70 ml 650 ml Intake Free Water 200 ml 200 ml IV Total 330 ml Tube Feeding 600 ml 450 ml Output Urine Total 1200 ml # Bowel Movements 1 Laboratory Tests 10/17/19 05:25: White Blood Count 15.2H, Red Blood Count 3.52L, Hemoglobin 11.5L, Hematocrit 34.3L, Mean Corpuscular Volume 98, Mean Corpuscular Hemoglobin 32.8H, Mean Corpuscular Hemoglobin Concent 33.6, Red Cell Distribution Width 14.1, Platelet Count 460H, Mean Platelet Volume 5.9L, Neutrophils (%) (Auto) 71.1, Lymphocytes (%) (Auto) 21.2, Monocytes (%) (Auto) 6.6, Eosinophils (%) (Auto) 0.0, Basophils (%) (Auto) 1.0, Sodium Level 140, Potassium Level 4.6, Chloride Level 101, Carbon Dioxide Level 32, Anion Gap 7, Blood Urea Nitrogen 24H, Creatinine 0.7, Estimat Glomerular Filtration Rate > 60, Glucose Level 132H, Calcium Level 9.8, Phosphorus Level 3.2, Magnesium Level 2.1, Total Bilirubin 0.2, Aspartate Amino Transf (AST/SGOT) 98H, Alanine Aminotransferase (ALT/SGPT) 95H, Alkaline Phosphatase 394H, Total Protein 8.8H, Albumin 2.9L, Globulin 5.9, Albumin/ Globulin Ratio 0.5L Height (Feet): 6 Height (Inches): 0.00 Weight (Pounds): 186 Konrad Soares MD October 17, 2019 16:38
[2019-10-17] MEDS ORDERED: Tubing IV Secondary IV ONE (18:56)
== END 2019-10-17 18:57 | DRG 871 ==
LOC: EDBD 12:32 → EMR 12:51 → 2E 13:11 → EDBEDREQ 18:33
DX: A41.59 Other Gram-negative sepsis (principal); J18.9 Pneumonia, unspecified organism; E43 Unspecified severe protein-calorie malnutrition; G92 Toxic encephalopathy; J44.0 Chronic obstructive pulmonary disease with (acute) lower respiratory infection; D68.9 Coagulation defect, unspecified; E87.0 Hyperosmolality and hypernatremia; L03.113 Cellulitis of right upper limb; L89.616 Pressure-induced deep tissue damage of right heel; L89.622 Pressure ulcer of left heel, stage 2; E11.43 Type 2 diabetes mellitus with diabetic autonomic (poly)neuropathy; K31.84 Gastroparesis; Z68.25 Body mass index [BMI] 25.0-25.9, adult; E83.52 Hypercalcemia; R62.7 Adult failure to thrive; M11.239 Other chondrocalcinosis, unspecified wrist; I10 Essential (primary) hypertension; F03.90 Unspecified dementia, unspecified severity, without behavioral disturbance, psychotic disturbance, mood disturbance, and anxiety; Z95.0 Presence of cardiac pacemaker; E86.0 Dehydration; Z93.1 Gastrostomy status; L89.150 Pressure ulcer of sacral region, unstageable; G40.909 Epilepsy, unspecified, not intractable, without status epilepticus; Z20.828 Contact with and (suspected) exposure to other viral communicable diseases
CPT/HCPCS: 36415; 71045; 74018; 76700; 80048; 80053; 80185; 80202; 81001; 81003; 82270; 82550; 82607; 82728; 82746; 82962; 82977; 83540; 83550; 83605; 83735; 83880; 84100; 84443; 84484; 84550; 85007; 85025; 85610; 85651; 85730; 86140; 86710; 87040; 87081; 87086; 87181; 87635; 93005; 93306; 93931; 94640; 94664; 96365; 96368; 99291; J1815; J7030